=== PATIENT | female | born 1990 | race Native Hawaiian/Other Pacific Islander ===

== ENCOUNTER 2017-11-06 08:31 | Emergency (ER) | payer MEDICAID, OTHER ==
[~2017-11-06] VITALS: Ht 165.1 cm; Wt 99.8 kg
[2017-11-06] MEDS ORDERED: BUSP15TA60 (08:57)
[2017-11-06] MEDS ORDERED: FLUO20CA25 (08:57)
[2017-11-06] MEDS ORDERED: NS IV 1000 ML 1,000 ML IV SCH (10:00)
[2017-11-06] MEDS ORDERED: diphenhydrAMINE 50 MG/ML INJ (BENADRYL) IVP ONE (10:00)
[2017-11-06] MEDS ORDERED: KETOROLAC 30 MG/ML VIAL IVP ONE (10:00)
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
[2017-11-06] MEDS ORDERED: fentaNYL INJECTION 100 MCG/2 ML AMP IVP ONE (11:00)
[2017-11-06 11:26] VITALS: BP 140/49
--- OUTSIDE RECORDS SUMMARY | 2017-11-07 09:14 | XMS REPORT ---
Author [facility] Medical Staff Organization [facility] Address [address] [place], [place] [address] Phone [phone] Summary purpose TRANSITION OF CARE AUTO GENERATION Chief Complaint and Reason for Visit No authorized Reason for Visit (Admitting Diagnosis) is available for this visit. Problem list No authorized problems tracked for continuity of care are available for this visit. Encounters No authorized problems tracked for encounter diagnoses are available for this visit. Medications No medications recorded for this patient visit Allergies, adverse reactions, alerts Allergen Category Ingredient Status Reaction Severity Onset No Known Drug Allergies No known drug allergies No Known Drug Allergies Confirmed or Verified Immunizations No immunizations recorded for this patient visit Relevant diagnostic tests and/or laboratory data No authorized results are available for this patient visit History of procedures Procedure Code Code Type Description Date Performed Performing Physician [id number] CPT-4 X-RAY EXAM OF NECK SPINE 03-15-2016 CARA ELISE Functional status No functional or cognitive status observations are available for this visit. Vital signs No authorized vital signs are available for this visit. Social history No Social History or smoking status observations were recorded for this visit. ( Unknown if ever smoked.) Treatment Plan No treatment plan text is available for this visit. Hospital discharge instructions No discharge instruction text is available for this visit.
--- OUTSIDE RECORDS SUMMARY | 2017-11-07 09:14 | XMS REPORT ---
Author Author [facility] Medical Staff Organization [facility] Address [address] [place], [place] [address] Phone [phone] Summary purpose TRANSITION OF CARE AUTO GENERATION [...] for this patient visit History of procedures No procedures recorded for this patient visit. Functional status No functional or cognitive status [...]
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
--- OUTSIDE RECORDS SUMMARY | 2017-11-07 09:15 | XMS REPORT | Clinical Summary ---
Author Author Admin, MARCO ANTONIO Gardiner [facility] Address Unknown Phone Unavailable Allergies, Adverse Reactions, Alerts Allergy Name Reaction Description Start Date Severity Status Provider No Known Allergies Antonia Elder Conditions or Problems Problem Name Problem Code Onset Date Status Entry Date Provider Comment Standard Description Annotate FH BREAST CANCER V16.3 Active Jacque Blas MD PhD Family history of malignant neoplasm of breast , NORMAL V22.2 Resolved Jacque Blas MD PhD state, incidental EXCESS GROWTH AFFECT MGMT MOTH ANTPRTM 656.63 Resolved Jacque Blas MD PhD Excessive growth affecting management of mother, antepartum condition or complication UTERINE SIZE DATE DISCREPANCY ANTPRTM COND/COMPL 649.63 Resolved Jacque Blas MD PhD Uterine size date discrepancy, antepartum condition or complication DEPRESSION 648.40 Resolved Jacque Blas MD PhD Mental disorders complicating , childbirth, or the puerperium, unspecified as to episode of care or not applicable CONSTIPATION 564.00 Resolved Jacque Blas MD PhD Constipation, unspecified SUPRAPUBIC PAIN 789.09 Resolved Jacque Blas MD PhD Abdominal pain, other specified site; multiple sites SEXUALLY TRANSMITTED DISEASE, EXPOSURE TO V01.6 Resolved Jacque Blas MD PhD Contact with or exposure to venereal diseases IRREGULAR MENSES 626.4 Resolved Jacque Blas MD PhD Irregular menstrual cycle , NORMAL, MULTIGRAVIDA V22.1 Resolved Jacque Blas MD PhD Supervision of other normal OTHER SPECIFED COMPLICATION ANTEPARTUM 646.83 Resolved Jacque Blas MD PhD Other specified complications of , antepartum condition or complication BACTERIAL VAGINITIS 616.10 Resolved Jacque Blas MD PhD Vaginitis and vulvovaginitis, unspecified DECR MOVMNTS MGMT MOTH ANTPRTM COND/COMP 655.73 Resolved Jacque Blas MD PhD Decreased movements affecting management of mother, antepartum condition or complication HEARTBURN 787.1 Resolved Jacque Blas MD PhD Heartburn WARTS, VIRAL, UNSPECIFIED 078.10 Resolved Jacque Blas MD PhD Viral warts, unspecified EXAMINATION V24.2 Resolved Jacque Blas MD PhD Routine follow-up CONTRACEPTIVE MANAGEMENT V25.09 Resolved Jacque Blas MD PhD Encounter for other general counseling and advice on contraceptive management Low back pain 724.2 Active Jacque Blas MD PhD Lumbago Neck pain 723.1 Active Jacque Blas MD PhD Cervicalgia Depression/anxiety 300.4 Active Jacque Blas MD PhD Dysthymic disorder Routine gynecological examination V72.31 Active Jacque Blas MD PhD Routine gynecological examination Neck pain 723.1 Inactive Jacque Blas MD PhD Cervicalgia Back pain, lumbar 724.2 Inactive Jacque Blas MD PhD Lumbago Mood swings 296.99 Resolved Jacque Blas MD PhD Other specified episodic mood disorder Aftercare, long-term use, medications NEC V58.69 Resolved 04/07 Jacque Blas MD PhD Long-term (current) use of other medications Vaginitis 616.10 Resolved Jacque Blas MD PhD Vaginitis and vulvovaginitis, unspecified IUD surveillance V25.42 Active Chloe Wagner MD Encounter for surveillance of intrauterine contraceptive device Vaginal discharge 623.5 Resolved Jacque Blas MD PhD Leukorrhea, not specified as infective Drug abuse, hx of V15.89 Active Chloe Wagner MD Other specified personal history presenting hazards to health Std screening V74.5 Active Chloe Wagner MD Screening examination for venereal disease Vaccine against influenza V04.8 Resolved Jacque Blas MD PhD Need for prophylactic vaccination and inoculation against other viral diseases UTI 599.0 Resolved Jacque Blas MD PhD Urinary tract infection, site not specified Back pain, lumbar 724.2 Inactive Jacque Blas MD PhD Lumbago Dysuria 788.1 Active Jacque Blas MD PhD Dysuria Obesity 278.00 Active Jacque Blas MD PhD Obesity, unspecified Candidiasis, vaginal 112.1 Active Jacque Blas MD PhD Candidiasis of vulva and vagina Bacterial vaginosis 616.10 Active Jacque Blas MD PhD Vaginitis and vulvovaginitis, unspecified EXCESS GROWTH AFFECT MGMT MOTH ANTPRTM ICD-656.63 Inactive Jacque Blas MD PhD UTERINE SIZE DATE DISCREPANCY ANTPRTM COND/COMPL ICD-649.63 05/05 Inactive Jacque Blas MD PhD DEPRESSION ICD-648.40 Inactive Jacque Blas MD PhD SUPRAPUBIC PAIN ICD-789.09 Inactive Jacque Blas MD PhD CONSTIPATION ICD-564.00 Inactive Jacque Blas MD PhD , NORMAL ICD-V22.2 Inactive Jacque Blas MD PhD SEXUALLY TRANSMITTED DISEASE, EXPOSURE TO ICD-V01.6 Inactive Jacque Blas MD PhD IRREGULAR MENSES ICD-626.4 Inactive Jacque Blas MD PhD BACTERIAL VAGINITIS ICD-616.10 Inactive Jacque Blas MD PhD DECR MOVMNTS MGMT MOTH ANTPRTM COND/COMP ICD-655.73 Inactive Jacque Blas MD PhD HEARTBURN ICD-787.1 Inactive Jacque Blas MD PhD WARTS, VIRAL, UNSPECIFIED ICD-078.10 Inactive Jacque Blas MD PhD EXAMINATION ICD-V24.2 Inactive Jacque Blas MD PhD CONTRACEPTIVE MANAGEMENT ICD-V25.09 Inactive Jacque Blas MD PhD Neck pain ICD-723.1 Inactive Jacque Blas MD PhD Back pain, lumbar ICD-724.2 Inactive Jacque Blas MD PhD Mood swings ICD-296.99 Inactive Jacque Blas MD PhD Aftercare, long-term use, medications NEC ICD-V58.69 Inactive Jacque Blas MD PhD Vaginitis ICD-616.10 Inactive Jacque Blas MD PhD Vaginal discharge ICD-623.5 Inactive Jacque Blas MD PhD Vaccine against influenza ICD-V04.8 Inactive Jacque Blas MD PhD UTI ICD-599.0 Inactive Jacque Blas MD PhD Back pain, lumbar ICD-724.2 Inactive Jacque Blas MD PhD , NORMAL, MULTIGRAVIDA ICD-V22.1 Inactive Jacque Blas MD PhD OTHER SPECIFED COMPLICATION ANTEPARTUM ICD-646.83 Inactive Jacque Blas MD PhD Medication List Medication Instructions Start Date Stop Date Generic Name NDC Status Provider Patient Instruction FLAGYL 500 MG TABS 1 pill by mouth twice daily METRONIDAZOLE 92686868340 Active Jacque Blas MD PhD Active DIFLUCAN 150 MG TABS 1 pill every other day x 2 doses FLUCONAZOLE 97737798256 No Longer Active Jacque Blas MD PhD Active PHENTERMINE HCL 37.5 MG TABS 1/2 qAM, can increase to 1 qAM - take 30 min before or 2 hrs after breakfast, for weight loss PHENTERMINE HCL 11699436088 Active Jacque Blas MD PhD Active HYDROXYZINE HCL 25 MG TABS 1/2 - 1 pill by mouth four times daily , if neeed for nerves HYDROXYZINE HCL 88564853386 Active Jacque Blas MD PhD Active METHOCARBAMOL 500 MG ORAL TABS 1 pill by mouth up to four times daily if needed for muscle spasm/pain METHOCARBAMOL 64385988429 No Longer Active Jacque Blas MD PhD Active SEROQUEL 200 MG ORAL TABS take 1 tab daily QUETIAPINE FUMARATE 61595935358 No Longer Active Jacque Blas MD PhD Active NICODERM CQ 14 MG/24HR PT24 1 patch daily x 2 weeks, then decrease to 7's - for smoking cessation NICOTINE 74816773433 No Longer Active Jacque Blas MD PhD Active NICODERM CQ 7 MG/24HR PT24 1 patch daily x 2 weeks - for smoking cessation NICOTINE 30049623812 No Longer Active Jacque Blas MD PhD Active CIPRO 500 MG TAB 1 tablet by mouth twice daily CIPROFLOXACIN HCL 01128407959 No Longer Active Jacque Blas MD PhD Active CYCLOBENZAPRINE HCL 10 MG TABS 1/2 to 1 tablet by mouth q hs, prn CYCLOBENZAPRINE HCL 73091426749 Active Eva Alejo APRN Active MEDROL (DIAN) 4 MG TABS 6 pills x 1 day, then 5 pills x 1 day then 4 pills x 1 day, then 3 pills x 1 day, then 2 pills x 1 day, then 1 pill x 1 day, then stop METHYLPREDNISOLONE 37743521571 No Longer Active Rajllina Sapna CONNER Active CYCLOBENZAPRINE HCL 10 MG TABS 1/2 - 1 tab by mouth three times daily if needed for spasms/pain CYCLOBENZAPRINE HCL 90124550959 No Longer Active Rajllamanda Alejo APRN Active FLAGYL 500 MG ORAL TABS four tabs PO x 1 METRONIDAZOLE 74240673475 No Longer Active Jacque Blas MD PhD Active BACTRIM DS 800-160 MG ORAL TABS one tab PO BID x 3 days SULFAMETHOXAZOLE-TRIMETHOPRIM 79438254589 No Longer Active Chloe Wagner MD Active LAMICTAL 25 MG TABS 1 pill by mouth daily x 2 weeks, then 2 pills daily 07/26 LAMOTRIGINE 14787765629 No Longer Active Jacque Blas MD PhD Active LATUDA 40 MG TABS Take one by mouth daily LURASIDONE HCL 29066892242 Active Jacque Blas MD PhD Active HYDROCODONE-ACETAMINOPHEN 7.5-325 MG TABS 1 four times a day as needed for pain HYDROCODONE-ACETAMINOPHEN 52548311253 No Longer Active Jacque Blas MD PhD Active ROBAXIN 500 MG TAB 1-2 pills up to four times daily if needed for muscle spasms METHOCARBAMOL 25137937444 No Longer Active Jacque Blas MD PhD Active CITALOPRAM HYDROBROMIDE 10 MG TABS 1 pill daily, for depression/anxiety 02/09 CITALOPRAM HYDROBROMIDE 22801720060 No Longer Active Jacque Blas MD PhD Active HYDROCODONE-ACETAMINOPHEN 5-325 MG TABS 1 pill three times daily as needed for pain HYDROCODONE-ACETAMINOPHEN 99801095257 No Longer Active Jacque Blas MD PhD Active IBUPROFEN 600 MG TAB 1 pill four times daily, with food IBUPROFEN 28664509379 Active Jacque Blas MD PhD Active TRAMADOL HCL 50 MG TABS 1-2 tablets every 6 hours as needed for pain TRAMADOL HCL 86549027131 No Longer Active Jacque Blas MD PhD Active TYLENOL EXTRA STRENGTH 500 MG TABS 2 @ HS ACETAMINOPHEN 75083994580 No Longer Active Jacque Blas MD PhD Active SERTRALINE HCL 50 MG TABS 1 daily for depression SERTRALINE HCL 30439969333 No Longer Active Jacque Blas MD PhD Active BACTRIM DS 800-160 MG TAB 1 tab by mouth twice daily TRIMETHOPRIM-SULFAMETHOXAZOLE 90150653326 No Longer Active Eva Alejo APRN Active FLINSTONES GUMMIES OMEGA-3 DHA CHEW Take one by mouth daily PEDIATRIC MULTIPLE VIT-C-FA 54323199763 No Longer Active Jacque Blas MD PhD Active RANITIDINE HCL 150 MG CAPS 1 twice a day RANITIDINE HCL 25386561242 No Longer Active Jacque Blas MD PhD Active PNV-OMEGA 28-0.6-0.4-340 MG CAPS 1 pill by mouth daily PRENAT W/O [id number] 66549100320 No Longer Active Jacque Blas MD PhD Active BACTRIM DS 800-160 MG TAB 1 tab by mouth twice daily TRIMETHOPRIM-SULFAMETHOXAZOLE 43335088463 No Longer Active Jacque Blas MD PhD Active METRONIDAZOLE 250 MG TABS 1 TID METRONIDAZOLE 20576373193 No Longer Active Jacque Blas MD PhD Active TRI-SPRINTEC 0.18/0.215/0.25 MG-35 MCG TABS 1 PO q Day NORGESTIM-ETH ESTRAD TRIPHASIC 96257236449 No Longer Active Jacque Blas MD PhD Active ALPRAZOLAM 0.25 MG TABS 1/2 tab to 1 tab PO TID PRN ALPRAZOLAM 47681622251 No Longer Active Jacque Blas MD PhD Active FLUOXETINE HCL 10 MG CAPS 2 PO q AM FLUOXETINE HCL 12762270512 No Longer Active Jacque Blas MD PhD Active ALPRAZOLAM 0.25 MG TABS 1/2 tab to 1 tab PO TID PRN ALPRAZOLAM 0.25 MG TABS 570458 ALPRAZOLAM Inactive TRI-SPRINTEC 0.18/0.215/0.25 MG-35 MCG TABS 1 PO q Day TRI-SPRINTEC 0.18/0.215/0.25 MG-35 MCG TABS 611713 NORGESTIM-ETH ESTRAD TRIPHASIC Inactive PNV-OMEGA 28-0.6-0.4-340 MG CAPS 1 pill by mouth daily PNV-OMEGA 28-0.6-0.4-340 MG CAPS PRENAT W/O [id number]-OMEGA Inactive RANITIDINE HCL 150 MG CAPS 1 twice a day RANITIDINE HCL 150 MG CAPS 935864 RANITIDINE HCL Inactive FLINSTONES GUMMIES OMEGA-3 DHA CHEW Take one by mouth daily FLINSTONES GUMMIES OMEGA-3 DHA CHEW PEDIATRIC MULTIPLE VIT-C-FA Inactive SERTRALINE HCL 50 MG TABS 1 daily for depression SERTRALINE HCL 50 MG TABS 957892 SERTRALINE HCL Inactive TYLENOL EXTRA STRENGTH 500 MG TABS 2 @ HS TYLENOL EXTRA STRENGTH 500 MG TABS 583056 ACETAMINOPHEN Inactive TRAMADOL HCL 50 MG TABS 1-2 tablets every 6 hours as needed for pain TRAMADOL HCL 50 MG TABS 167551 TRAMADOL HCL Inactive HYDROCODONE-ACETAMINOPHEN 5-325 MG TABS 1 pill three times daily as needed for pain HYDROCODONE-ACETAMINOPHEN 5-325 MG TABS 606707 HYDROCODONE-ACETAMINOPHEN Inactive CITALOPRAM HYDROBROMIDE 10 MG TABS 1 pill daily, for depression/anxiety 02/09 CITALOPRAM HYDROBROMIDE 10 MG TABS 284643 CITALOPRAM HYDROBROMIDE Inactive ROBAXIN 500 MG TAB 1-2 pills up to four times daily if needed for muscle spasms ROBAXIN 500 MG TAB 611791 METHOCARBAMOL Inactive HYDROCODONE-ACETAMINOPHEN 7.5-325 MG TABS 1 four times a day as needed for pain HYDROCODONE-ACETAMINOPHEN 7.5-325 MG TABS 406389 HYDROCODONE-ACETAMINOPHEN Inactive LAMICTAL 25 MG TABS 1 pill by mouth daily x 2 weeks, then 2 pills daily 07/26 LAMICTAL 25 MG TABS 346220 LAMOTRIGINE Inactive FLAGYL 500 MG ORAL TABS four tabs PO x 1 FLAGYL 500 MG ORAL TABS 393766 METRONIDAZOLE Inactive CYCLOBENZAPRINE HCL 10 MG TABS 1/2 - 1 tab by mouth three times daily if needed for spasms/pain CYCLOBENZAPRINE HCL 10 MG TABS 593607 CYCLOBENZAPRINE HCL Inactive CIPRO 500 MG TAB 1 tablet by mouth twice daily CIPRO 500 MG TAB 690896 CIPROFLOXACIN HCL Inactive NICODERM CQ 7 MG/24HR PT24 1 patch daily x 2 weeks - for smoking cessation NICODERM CQ 7 MG/24HR PT24 19800102 NICOTINE Inactive NICODERM CQ 14 MG/24HR PT24 1 patch daily x 2 weeks, then decrease to 7's - for smoking cessation NICODERM CQ 14 MG/24HR PT24 19791212 NICOTINE Inactive SEROQUEL 200 MG ORAL TABS take 1 tab daily SEROQUEL 200 MG ORAL TABS 873996 QUETIAPINE FUMARATE Inactive METHOCARBAMOL 500 MG ORAL TABS 1 pill by mouth up to four times daily if needed for muscle spasm/pain METHOCARBAMOL 500 MG ORAL TABS 507487 METHOCARBAMOL Inactive FLUOXETINE HCL 10 MG CAPS 2 PO q AM FLUOXETINE HCL 10 MG CAPS 449885 FLUOXETINE HCL Inactive METRONIDAZOLE 250 MG TABS 1 TID METRONIDAZOLE 250 MG TABS 902369 METRONIDAZOLE Inactive BACTRIM DS 800-160 MG TAB 1 tab by mouth twice daily BACTRIM DS 800-160 MG TAB TRIMETHOPRIM-SULFAMETHOXAZOLE Inactive BACTRIM DS 800-160 MG TAB 1 tab by mouth twice daily BACTRIM DS 800-160 MG TAB TRIMETHOPRIM-SULFAMETHOXAZOLE Inactive BACTRIM DS 800-160 MG ORAL TABS one tab PO BID x 3 days BACTRIM DS 800-160 MG ORAL TABS SULFAMETHOXAZOLE-TRIMETHOPRIM Inactive MEDROL (DIAN) 4 MG TABS 6 pills x 1 day, then 5 pills x 1 day then 4 pills x 1 day, then 3 pills x 1 day, then 2 pills x 1 day, then 1 pill x 1 day, then stop MEDROL (DIAN) 4 MG TABS METHYLPREDNISOLONE Inactive DIFLUCAN 150 MG TABS 1 pill every other day x 2 doses DIFLUCAN 150 MG TABS 389960 FLUCONAZOLE Inactive Advance Directives Directive Description Start Date PERMISSION TO SHARE Immunizations Vaccine Administration Date Value Standard Description dT (Diphtheria and Tetanus) booster given given Td(adult) unspecified formulation Adacel (Tetanus, reduced Diphtheria, and acellular Pertussis Immunization) Adacel [[id number]] tetanus toxoid, reduced diphtheria toxoid, and acellular pertussis vaccine, adsorbed hepatitis B vaccine series yes hepatitis B vaccine, unspecified formulation Vital Signs Date Name Value Unit Range Description blood pressure, diastolic - 8462-4 66 mm[Hg] BP sellers blood pressure, systolic - 8480-6 108 mm[Hg] BP sys pulse rate E&M - 8867-4 89 /min Heart rate temperature E&M 98.2 [degF] Body temperature weight E&M - 3141-9 227 [lb_av] Weight Measured blood pressure, diastolic - 8462-4 77 mm[Hg] BP sellers blood pressure, systolic - 8480-6 116 mm[Hg] BP sys pulse rate E&M - 8867-4 88 /min Heart rate temperature E&M 98.6 [degF] Body temperature weight E&M - 3141-9 192 [lb_av] Weight Measured blood pressure, diastolic - 8462-4 83 mm[Hg] BP sellers blood pressure, systolic - 8480-6 117 mm[Hg] BP sys pulse rate E&M - 8867-4 77 /min Heart rate temperature E&M 99 [degF] Body temperature weight E&M - 3141-9 192 [lb_av] Weight Measured blood pressure, diastolic - 8462-4 78 mm[Hg] BP sellers blood pressure, systolic - 8480-6 120 mm[Hg] BP sys pulse rate E&M - 8867-4 85 /min Heart rate temperature E&M 98.6 [degF] Body temperature weight E&M - 3141-9 183 [lb_av] Weight Measured blood pressure, diastolic - 8462-4 68 mm[Hg] BP sellers blood pressure, systolic - 8480-6 112 mm[Hg] BP sys pulse rate E&M - 8867-4 97 /min Heart rate temperature E&M 98.5 [degF] Body temperature weight E&M - 3141-9 184.3 [lb_av] Weight Measured blood pressure, diastolic - 8462-4 61 mm[Hg] BP sellers blood pressure, systolic - 8480-6 107 mm[Hg] BP sys pulse rate E&M - 8867-4 96 /min Heart rate temperature E&M 99.0 [degF] Body temperature weight E&M - 3141-9 158.2 [lb_av] Weight Measured blood pressure, diastolic - 8462-4 68 mm[Hg] BP sellers blood pressure, systolic - 8480-6 109 mm[Hg] BP sys height E&M - 8302-2 65 [in_us] Bdy height pulse rate E&M - 8867-4 96 /min Heart rate temperature E&M 98.3 [degF] Body temperature weight E&M - 3141-9 162 [lb_av] Weight Measured blood pressure, diastolic - 8462-4 85 mm[Hg] BP sellers blood pressure, systolic - 8480-6 127 mm[Hg] BP sys height E&M - 8302-2 65 [in_us] Bdy height pulse rate E&M - 8867-4 95 /min Heart rate temperature E&M 99.1 [degF] Body temperature weight E&M - 3141-9 162 [lb_av] Weight Measured Diagnostic Results Date Name Value Unit Range Description Lab Report: Chlamydia/GC APTIMA/50162 - Lab chlamydia DNA probe NOT DETECTED NOT DETECTED chlamydia DNA probe NOT DETECTED NOT DETECTED chlamydia DNA probe NOT DETECTED NOT DETECTED chlamydia DNA probe NOT DETECTED NOT DETECTED chlamydia DNA probe NOT DETECTED NOT DETECTED Lab Report: Chlamydia/GC APTIMA/16762 - Microbiology Neisseria gonorrhoeae DNA probe NOT DETECTED NOT DETECTED Neisseria gonorrhoeae DNA probe NOT DETECTED NOT DETECTED Neisseria gonorrhoeae DNA probe NOT DETECTED NOT DETECTED Neisseria gonorrhoeae DNA probe NOT DETECTED NOT DETECTED Neisseria gonorrhoeae DNA probe NOT DETECTED NOT DETECTED Lab Report: Chlamydia/GC APTIMA/35973, Drug Abuse Pnl 10-50/40823 - Lab chlamydia DNA probe NOT DETECTED NOT DETECTED Lab Report: Chlamydia/GC APTIMA/08532, Drug Abuse Pnl 10-50/41040 - Microbiology Neisseria gonorrhoeae DNA probe NOT DETECTED NOT DETECTED Lab Report: CKI, Erythrocyte Sed Rate - Chemistry creatine kinase, serum 63 U/L 26-192 Lab Report: HEPATITIS B S AG W/, HIV-1/HIV-2 AB SCREEN W , RPR ... - Chemistry hepatitis B surface antigen NON-REACTIVE NON-REACTIVE Lab Report: HEPATITIS B S AG W/, HIV-1/HIV-2 AB SCREEN W , RPR ... - Serology rapid plasma reagin antibody titer NON-REACTIVE NON-REACTIVE Lab Report: Thyroid Stimulating Hormone (L), Free Thyroxine (L) - Chemistry TSH 1.21 m[iU]/mL 0.36-3.74 thyroxine, serum, free 1.01 ng/dL 0.76-1.46 Lab Report: UADIP W/MICRO, AUTO - Chemistry RBC, urine, dipstick Negative Negative protein, total urine random Negative mg/dL Negative Lab Report: UADIP W/MICRO, AUTO - Urinalysis glucose, urine, semiquantitative Negative Negative ketones, urine, by test strip Negative Negative bilirubin, urine Negative Negative urobilinogen, urine, semiquantitative (dipstick) 0.2 Normal leukocyte esterase, urine, by dipstick 1+ Negative nitrite, urine, semiquantitative Negative Negative urine color Yellow Colorless;Lightyellow;Straw;Yellow appearance, urine SlCloudy Clear specific gravity, urine 1.020 1.000-1.030 pH, urine, semiquantitative 7.5 5.0-8.5 Lab Report: Wet Prep, UADIP W/MICRO, AUTO - Chemistry protein, total urine random Negative mg/dL Negative protein, total urine random 1+ mg/dL Negative RBC, urine, dipstick 1+ Negative RBC, urine, dipstick 1+ Negative Lab Report: Wet Prep, UADIP W/MICRO, AUTO - Urinalysis urobilinogen, urine, semiquantitative (dipstick) 0.2 Normal leukocyte esterase, urine, by dipstick 3+ Negative nitrite, urine, semiquantitative Negative Negative glucose, urine, semiquantitative Negative Negative urine color Yellow Colorless;Lightyellow;Straw;Yellow appearance, urine Cloudy Clear specific gravity, urine 1.010 1.000-1.030 pH, urine, semiquantitative 7.0 5.0-8.5 urobilinogen, urine, semiquantitative (dipstick) 0.2 Normal leukocyte esterase, urine, by dipstick 2+ Negative nitrite, urine, semiquantitative Negative Negative glucose, urine, semiquantitative Negative Negative ketones, urine, by test strip Negative Negative bilirubin, urine Negative Negative urine color Yellow Colorless;Lightyellow;Straw;Yellow appearance, urine Cloudy Clear specific gravity, urine 1.010 1.000-1.030 pH, urine, semiquantitative 7.0 5.0-8.5 ketones, urine, by test strip Negative Negative bilirubin, urine Negative Negative Office Visit: preethi removal - Chemistry human chorionic gonadotropin, urine, qualitative (urine test) Negative Encounters Code Encounter Date Provider Facility CPT-62691 Level 3 Est. Patient 12:37:07 CDT Jacque Blas MD [facility] CPT-22175 Level 3 Est. Patient 20:19:50 CALENDER INSPECTOR Jacque Blas MD [facility] CPT-19487 Level 4 Est. Patient 17:32:49 CALENDER INSPECTOR Jacque Blas MD [facility] CPT-97118 Level 3 Est. Patient 14:38:20 CDT Jacque Blas MD [facility] CPT-55804 Level 4 Est. Patient 20:19:14 CDT Jacque Blas MD [facility] CPT-07837 Level 3 Est. Patient 15:41:32 CDT Jacque Blas MD [facility] CPT-53932 Level 3 Est. Patient 18:02:00 CALENDER INSPECTOR Jacque Blas MD [facility] CPT-83184 Level 3 Est. Patient 21:41:26 CALENDER INSPECTOR Jacque Blas MD [facility] CPT-31391 Level 4 Est. Patient 14:43:47 CALENDER INSPECTOR Jacque Blas MD [facility] CPT-59601 Level 3 Est. Patient 20:16:54 CALENDER INSPECTOR Jacque Blas MD [facility] CPT-90153 Level 3 Est. Patient 13:31:37 CDT Jacque Blas MD [facility] CPT-93409 Level 3 New Patient 18:16:07 CDT Jacque Blas MD [facility] Procedures Code Procedure Name Date Entry Date Standard Description CPT-01783 Fluzone Quadrivalent Intramuscular Suspension 0.5 ML 16: 31:47 CALENDER INSPECTOR CPT-97469 Immunization Single Admin 16:31:47 CALENDER INSPECTOR CPT-57120 Immunization Single Admin 13:26:18 CALENDER INSPECTOR CPT-51186 Fluzone Intramuscular Injectable 13:26:18 CALENDER INSPECTOR CPT-70221 Fluzone Thim Free 36mo and older 12:03:33 CALENDER INSPECTOR CPT-66748 UHCG (floor use only) 11:49:41 CALENDER INSPECTOR CPT-OV Office Visit 11:49:41 CALENDER INSPECTOR CPT-54361 LS spine comp w obliq 15:53:02 CALENDER INSPECTOR CPT-50387 C-Spine Min 4V 15:53:02 CALENDER INSPECTOR CPT-09326 UHCG (floor use only) 14:15:45 CDT CPT-38798 UHCG (floor use only) 14:09:15 CDT CPT-J7302 Mirena IUD 13:30:58 CDT CPT-02156 Insertion of IUD 13:30:58 CDT CPT-OV Office Visit 13:30:58 CDT CPT-63419 Visit 10:48:09 CDT CPT-04151 Visit 15:34:57 CDT CPT-08677 Visit 15:25:55 CDT CPT-96276 Visit 13:58:45 CDT CPT-08588 Sono OB comp > 14 weeks 16:57:22 CDT CPT-LR Lesion Removal 09:33:27 CDT CPT-89454 Visit 12:50:42 CDT CPT-79230 Visit 18:34:25 CDT CPT-000 Give Appropriate Tetanus Booster 09:16:14 CDT CPT-37195 Administration single or combination vaccine inc oral 11 :36:32 CDT CPT-53672 Tdap 11:36:32 CDT CPT-77370 Visit 09:16:14 CDT CPT-95223 Visit 13:35:24 CDT CPT-34531 Sono OB comp > 14 weeks 11:46:07 CDT CPT-83495 Visit 17:08:15 CDT CPT-80279 Sono OB comp <14 weeks 15:47:19 CALENDER INSPECTOR CPT-02860 Visit 13:28:37 CDT CPT-12922 Spec Collection and Handling Fee 12:41:37 CDT CPT-82506 Visit 12:41:07 CDT CPT-98855 Visit 18:48:53 CDT CPT-44186 Visit 16:25:17 CDT CPT-96573 Sono OB comp > 14 weeks 11:38:18 CDT CPT-73426 Visit 13:36:17 CDT CPT-49893 Visit 13:48:22 CDT
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
--- OUTSIDE RECORDS SUMMARY | 2017-11-07 09:16 | XMS REPORT | Clinical Summary ---
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-656.63 Inactive Jacque Blas MD PhD UTERINE SIZE DATE DISCREPANCY ANTPRTM COND/COMPL ICD-649.63 05/05 Inactive Jacque Blas MD PhD DEPRESSION ICD-648.40 Inactive Jacque Blas MD PhD CONSTIPATION ICD-564.00 Inactive Jacque Blas MD PhD SUPRAPUBIC PAIN ICD-789.09 Inactive Jacque Blas MD PhD SEXUALLY TRANSMITTED DISEASE, EXPOSURE TO ICD-V01.6 Inactive Jacque Blas MD PhD IRREGULAR MENSES ICD-626.4 Inactive Jacque Blas MD PhD , NORMAL, MULTIGRAVIDA ICD-V22.1 Inactive Jacque Blas MD PhD OTHER SPECIFED COMPLICATION ANTEPARTUM ICD-646.83 Inactive Jacque Blas MD PhD BACTERIAL VAGINITIS [...] lumbar ICD-724.2 Inactive Jacque Blas MD PhD Medication List Medication Instructions Start Date Stop Date Generic Name NDC Status Provider Patient Instruction FLAGYL 500 MG TABS 1 pill by mouth twice daily METRONIDAZOLE 19632825369 Active Jacque Blas MD PhD Active DIFLUCAN 150 MG TABS 1 pill every other day x 2 doses FLUCONAZOLE 31393538356 Active Jacque Blas MD PhD Active PHENTERMINE HCL 37.5 MG TABS 1/2 qAM, can increase to 1 qAM - take 30 min before or 2 hrs after breakfast, for weight loss PHENTERMINE HCL 03174504419 Active Jacque Blas MD PhD Active HYDROXYZINE HCL 25 MG TABS 1/2 - 1 pill by mouth four times daily , if neeed for nerves HYDROXYZINE HCL 40898928905 Active Jacque Blas MD PhD Active METHOCARBAMOL 500 MG ORAL TABS 1 pill by mouth up to four times daily if needed for muscle spasm/pain METHOCARBAMOL 94807794610 No Longer Active Jacque Blas MD PhD Active SEROQUEL 200 MG ORAL TABS take 1 tab daily QUETIAPINE FUMARATE 36388029786 No Longer Active Jacque Blas MD PhD Active NICODERM CQ 14 MG/24HR PT24 1 patch daily x 2 weeks, then decrease to 7's - for smoking cessation NICOTINE 87588648850 No Longer Active Jacque Blas MD PhD Active NICODERM CQ 7 MG/24HR PT24 1 patch daily x 2 weeks - for smoking cessation NICOTINE 90738407474 No Longer Active Jacque Blas MD PhD Active CIPRO 500 MG TAB 1 tablet by mouth twice daily CIPROFLOXACIN HCL 91658952706 No Longer Active Jacque Blas MD PhD Active CYCLOBENZAPRINE HCL 10 MG TABS 1/2 to 1 tablet by mouth q hs, prn CYCLOBENZAPRINE HCL 90741671879 Active Eva Alejo APRN Active MEDROL (DIAN) 4 MG TABS 6 pills x 1 day, then 5 pills x 1 day then 4 pills x 1 day, then 3 pills x 1 day, then 2 pills x 1 day, then 1 pill x 1 day, then stop METHYLPREDNISOLONE 91646106342 No Longer Active Rajllamanda Alejo APRN Active CYCLOBENZAPRINE HCL 10 MG TABS 1/2 - 1 tab by mouth three times daily if needed for spasms/pain CYCLOBENZAPRINE HCL 03015115156 No Longer Active Eva Alejo APRN Active FLAGYL 500 MG ORAL TABS four tabs PO x 1 METRONIDAZOLE 93272434355 No Longer Active Jacque Blas MD PhD Active BACTRIM DS 800-160 MG ORAL TABS one tab PO BID x 3 days SULFAMETHOXAZOLE-TRIMETHOPRIM 55721495669 No Longer Active Chloe Wagner MD Active LAMICTAL 25 MG TABS 1 pill by mouth daily x 2 weeks, then 2 pills daily 07/26 LAMOTRIGINE 46317844476 No Longer Active Jacque Blas MD PhD Active LATUDA 40 MG TABS Take one by mouth daily LURASIDONE HCL 51202866890 Active Jacque Blas MD PhD Active HYDROCODONE-ACETAMINOPHEN 7.5-325 MG TABS 1 four times a day as needed for pain HYDROCODONE-ACETAMINOPHEN 64321046219 No Longer Active Jacque Blas MD PhD Active ROBAXIN 500 MG TAB 1-2 pills up to four times daily if needed for muscle spasms METHOCARBAMOL 96773614515 No Longer Active Jacque Blas MD PhD Active CITALOPRAM HYDROBROMIDE 10 MG TABS 1 pill daily, for depression/anxiety 02/09 CITALOPRAM HYDROBROMIDE 09091578637 No Longer Active Jacque Blas MD PhD Active HYDROCODONE-ACETAMINOPHEN 5-325 MG TABS 1 pill three times daily as needed for pain HYDROCODONE-ACETAMINOPHEN 56418727658 No Longer Active Jacque Blas MD PhD Active IBUPROFEN 600 MG TAB 1 pill four times daily, with food IBUPROFEN 48892633064 Active Jacque Blas MD PhD Active TRAMADOL HCL 50 MG TABS 1-2 tablets every 6 hours as needed for pain TRAMADOL HCL 06245583415 No Longer Active Jacque Blas MD PhD Active TYLENOL EXTRA STRENGTH 500 MG TABS 2 @ HS ACETAMINOPHEN 01528987537 No Longer Active Jacque Blas MD PhD Active SERTRALINE HCL 50 MG TABS 1 daily for depression SERTRALINE HCL 19852096689 No Longer Active Jacque Blas MD PhD Active BACTRIM DS 800-160 MG TAB 1 tab by mouth twice daily TRIMETHOPRIM-SULFAMETHOXAZOLE 53955242769 No Longer Active Eva Alejo APRN Active FLINSTONES GUMMIES OMEGA-3 DHA CHEW Take one by mouth daily PEDIATRIC MULTIPLE VIT-C-FA 63478483843 No Longer Active Jacque Blas MD PhD Active RANITIDINE HCL 150 MG CAPS 1 twice a day RANITIDINE HCL 06195398624 No Longer Active Jacque Blas MD PhD Active PNV-OMEGA 28-0.6-0.4-340 MG CAPS 1 pill by mouth daily PRENAT W/O W-[id number]-ZLZFP-FA-OMEGA 60318146497 No Longer Active Jacque Blas MD PhD Active BACTRIM DS 800-160 MG TAB 1 tab by mouth twice daily TRIMETHOPRIM-SULFAMETHOXAZOLE 42447426313 No Longer Active Jacque Blas MD PhD Active METRONIDAZOLE 250 MG TABS 1 TID METRONIDAZOLE 21071631586 No Longer Active Jacque Blas MD PhD Active TRI-SPRINTEC 0.18/0.215/0.25 MG-35 MCG TABS 1 PO q Day NORGESTIM-ETH ESTRAD TRIPHASIC 63013655889 No Longer Active Jacque Blas MD PhD Active ALPRAZOLAM 0.25 MG TABS 1/2 tab to 1 tab PO TID PRN ALPRAZOLAM 29501199172 No Longer Active Jacque Blas MD PhD Active FLUOXETINE HCL 10 MG CAPS 2 PO q AM FLUOXETINE HCL 03025430177 No Longer Active Jacque Blas MD PhD Active ALPRAZOLAM 0.25 MG TABS 1/2 tab to 1 tab PO TID PRN ALPRAZOLAM 0.25 MG TABS 986514 ALPRAZOLAM Inactive TRI-SPRINTEC 0.18/0.215/0.25 MG-35 MCG TABS 1 PO q Day TRI-SPRINTEC 0.18/0.215/0.25 MG-35 MCG TABS 690980 NORGESTIM-ETH ESTRAD TRIPHASIC Inactive PNV-OMEGA 28-0.6-0.4-340 MG CAPS 1 pill by mouth daily PNV-OMEGA 28-0.6-0.4-340 MG CAPS PRENAT W/O V-[id number]-OMEGA Inactive RANITIDINE HCL 150 MG CAPS 1 twice a day RANITIDINE HCL 150 MG CAPS 962705 RANITIDINE HCL Inactive FLINSTONES GUMMIES OMEGA-3 DHA CHEW Take one by mouth daily FLINSTONES GUMMIES OMEGA-3 DHA CHEW PEDIATRIC MULTIPLE VIT-C-FA Inactive SERTRALINE HCL 50 MG TABS 1 daily for depression SERTRALINE HCL 50 MG TABS 765585 SERTRALINE HCL Inactive TYLENOL EXTRA STRENGTH 500 MG TABS 2 @ HS TYLENOL EXTRA STRENGTH 500 MG TABS 536938 ACETAMINOPHEN Inactive TRAMADOL HCL 50 MG TABS 1-2 tablets every 6 hours as needed for pain TRAMADOL HCL 50 MG TABS 995672 TRAMADOL HCL Inactive HYDROCODONE-ACETAMINOPHEN 5-325 MG TABS 1 pill three times daily as needed for pain HYDROCODONE-ACETAMINOPHEN 5-325 MG TABS 705205 HYDROCODONE-ACETAMINOPHEN Inactive CITALOPRAM HYDROBROMIDE 10 MG TABS 1 pill daily, for depression/anxiety 02/09 CITALOPRAM HYDROBROMIDE 10 MG TABS 624683 CITALOPRAM HYDROBROMIDE Inactive ROBAXIN 500 MG TAB 1-2 pills up to four times daily if needed for muscle spasms ROBAXIN 500 MG TAB 416475 METHOCARBAMOL Inactive HYDROCODONE-ACETAMINOPHEN 7.5-325 MG TABS 1 four times a day as needed for pain HYDROCODONE-ACETAMINOPHEN 7.5-325 MG TABS 520587 HYDROCODONE-ACETAMINOPHEN Inactive LAMICTAL 25 MG TABS 1 pill by mouth daily x 2 weeks, then 2 pills daily 07/26 LAMICTAL 25 MG TABS 812917 LAMOTRIGINE Inactive FLAGYL 500 MG ORAL TABS four tabs PO x 1 FLAGYL 500 MG ORAL TABS 673808 METRONIDAZOLE Inactive CYCLOBENZAPRINE HCL 10 MG TABS 1/2 - 1 tab by mouth three times daily if needed for spasms/pain CYCLOBENZAPRINE HCL 10 MG TABS 930386 CYCLOBENZAPRINE HCL Inactive CIPRO 500 MG TAB 1 tablet by mouth twice daily CIPRO 500 MG TAB 974217 CIPROFLOXACIN HCL Inactive NICODERM CQ 7 MG/24HR [...] tab daily SEROQUEL 200 MG ORAL TABS 490509 QUETIAPINE FUMARATE Inactive METHOCARBAMOL 500 MG ORAL TABS 1 pill by mouth up to four times daily if needed for muscle spasm/pain METHOCARBAMOL 500 MG ORAL TABS 720208 METHOCARBAMOL Inactive FLUOXETINE HCL 10 MG CAPS 2 PO q AM FLUOXETINE HCL 10 MG CAPS 617552 FLUOXETINE HCL Inactive METRONIDAZOLE 250 MG TABS 1 TID METRONIDAZOLE 250 MG TABS 866293 METRONIDAZOLE Inactive BACTRIM DS 800-160 MG TAB [...] MEDROL (DIAN) 4 MG TABS METHYLPREDNISOLONE Inactive Advance Directives Directive Description Start Date PERMISSION TO SHARE Immunizations Vaccine Administration Date Value Standard Description dT (Diphtheria and Tetanus) booster given given Td(adult) unspecified formulation Adacel (Tetanus, reduced Diphtheria, and acellular Pertussis Immunization) Adacel [[id number]] tetanus toxoid, reduced diphtheria toxoid, and acellular [...] Value Unit Range Description Lab Report: Chlamydia/GC APTIMA/98580 - Lab chlamydia DNA probe NOT DETECTED NOT DETECTED chlamydia DNA probe NOT DETECTED NOT DETECTED chlamydia DNA probe NOT DETECTED NOT DETECTED chlamydia DNA probe NOT DETECTED NOT DETECTED Lab Report: Chlamydia/GC APTIMA/10627 - Microbiology Neisseria gonorrhoeae DNA probe NOT DETECTED NOT DETECTED Neisseria gonorrhoeae DNA probe NOT DETECTED NOT DETECTED Neisseria gonorrhoeae DNA probe NOT DETECTED NOT DETECTED Neisseria gonorrhoeae DNA probe NOT DETECTED NOT DETECTED Lab Report: Chlamydia/GC APTIMA/20017, Drug Abuse Pnl 10-50/40411 - Lab chlamydia DNA probe NOT DETECTED NOT DETECTED Lab Report: Chlamydia/GC APTIMA/16931, Drug Abuse Pnl 10-50/33738 - Microbiology Neisseria gonorrhoeae DNA probe NOT [...] Lab Report: UADIP W/MICRO, AUTO - Chemistry protein, total urine random Negative mg/dL Negative RBC, urine, dipstick Negative Negative Lab Report: UADIP W/MICRO, AUTO - Urinalysis urobilinogen, urine, semiquantitative (dipstick) 0.2 Normal leukocyte esterase, urine, by dipstick 1+ Negative nitrite, urine, semiquantitative Negative Negative glucose, urine, semiquantitative Negative Negative ketones, urine, by test strip Negative Negative bilirubin, urine Negative Negative urine color Yellow Colorless;Lightyellow;Straw;Yellow appearance, urine SlCloudy Clear specific gravity, urine 1.020 1.000-1.030 pH, urine, semiquantitative 7.5 5.0-8.5 Lab Report: Wet Prep, UADIP W/MICRO, AUTO - Chemistry protein, total urine random Negative mg/dL Negative RBC, urine, dipstick 1+ Negative protein, total urine random 1+ mg/dL Negative RBC, urine, dipstick 1+ Negative Lab [...] 1.010 1.000-1.030 pH, urine, semiquantitative 7.0 5.0-8.5 Office Visit: [facility] removal - Chemistry human chorionic gonadotropin, urine, qualitative (urine test) Negative Encounters Code Encounter Date Provider Facility CPT-44976 Level 3 Est. Patient 12:37:07 CDT Jacque Blas MD [facility] CPT-45282 Level 3 Est. Patient 20:19:50 [employer]BER Jacque Blas MD [facility] CPT-99661 Level 4 Est. Patient 17:32:49 [employer]BER Jacque Blas MD [facility] CPT-95527 Level 3 Est. Patient 14:38:20 CDT Jacque Blas MD [facility] CPT-29249 Level 4 Est. Patient 20:19:14 CDT Jacque Blas MD [facility] CPT-26054 Level 3 Est. Patient 15:41:32 CDT Jacque Blas MD [facility] CPT-31509 Level 3 Est. Patient 18:02:00 Y[employer]BER Jacque Blas MD [facility] CPT-31420 Level 3 Est. Patient 21:41:26 Y[employer] COMBER Jacque Blas MD [facility] CPT-32379 Level 4 Est. Patient 14:43:47 Y[employer] COMBER Jacque Blas MD [facility] CPT-88421 Level 3 Est. Patient 20:16:54 Y[employer] COMBER Jacque Blas MD [facility] CPT-80955 Level 3 Est. Patient 13:31:37 CDT Jacque Blas MD [facility] CPT-89236 Level 3 New Patient 18:16:07 CDT Jacque Blas MD [facility] Procedures Code Procedure Name Date Entry Date Standard Description CPT-30421 Fluzone Quadrivalent Intramuscular Suspension 0.5 ML 16: 31:47 YARN COMBER CPT-82253 Immunization Single Admin 16:31:47 Y[employer] COMBER CPT-11437 Immunization Single Admin 13:26:18 YARN COMBER CPT-18438 Fluzone Intramuscular Injectable 13:26:18 YARN COMBER CPT-13755 Fluzone Thim Free 36mo and older 12:03:33 YARN COMBER CPT-94634 UHCG (floor use only) 11:49:41 YARN COMBER CPT-OV Office Visit 11:49:41 YARN COMBER CPT-69120 LS spine comp w obliq 15:53:02 YARN COMBER CPT-82908 C-Spine Min 4V 15:53:02 YARN COMBER CPT-14136 UHCG (floor use only) 14:15:45 CDT CPT-35044 UHCG (floor use only) 14:09:15 CDT CPT-J7302 Mirena IUD 13:30:58 CDT CPT-91787 Insertion of IUD 13:30:58 CDT CPT-OV Office Visit 13:30:58 CDT CPT-47440 Visit 10:48:09 CDT CPT-47040 Visit 15:34:57 CDT CPT-58870 Visit 15:25:55 CDT CPT-01882 Visit 13:58:45 CDT CPT-06627 Sono OB comp > 14 weeks 16:57:22 CDT CPT-LR Lesion Removal 09:33:27 CDT CPT-44409 Visit 12:50:42 CDT CPT-84800 Visit 18:34:25 CDT CPT-000 Give Appropriate Tetanus Booster 09:16:14 CDT CPT-00260 Administration single or combination vaccine inc oral 11 :36:32 CDT CPT-20056 Tdap 11:36:32 CDT CPT-63534 Visit 09:16:14 CDT CPT-54099 Visit 13:35:24 CDT CPT-67777 Sono OB comp > 14 weeks 11:46:07 CDT CPT-54102 Visit 17:08:15 CDT CPT-35105 Sono OB comp <14 weeks 15:47:19 YARN COMBER CPT-23258 Visit 13:28:37 CDT CPT-13281 Spec Collection and Handling Fee 12:41:37 CDT CPT-03682 Visit 12:41:07 CDT CPT-94793 Visit 18:48:53 CDT CPT-02139 Visit 16:25:17 CDT CPT-42850 Sono OB comp > 14 weeks 11:38:18 CDT CPT-16166 Visit 13:36:17 CDT CPT-39279 Visit 13:48:22 CDT
--- OUTSIDE RECORDS SUMMARY | 2017-11-07 09:17 | XMS REPORT | Clinical Summary ---
Author Author Admin, MARCO ANTONIO Gardiner [facility] Address Unknown Phone Unavailable Allergies, Adverse Reactions, [...] condition or complication DEPRESSION 648.40 Resolved Jacque Bals MD PhD Mental disorders complicating , childbirth, [...] MD PhD BACTERIAL VAGINITIS ICD-616.10 Inactive Jacque Bals MD PhD DECR MOVMNTS MGMT MOTH ANTPRTM [...] 1 pill by mouth twice daily METRONIDAZOLE 35505227375 Active Jacque Blas MD PhD Active DIFLUCAN 150 MG TABS 1 pill every other day x 2 doses FLUCONAZOLE 27222185453 Active Jacque Blas MD PhD Active PHENTERMINE HCL 37.5 MG TABS 1/2 qAM, can increase to 1 qAM - take 30 min before or 2 hrs after breakfast, for weight loss PHENTERMINE HCL 45160882196 Active Jacque Blas MD PhD Active HYDROXYZINE HCL 25 MG TABS 1/2 - 1 pill by mouth four times daily , if neeed for nerves HYDROXYZINE HCL 53825692697 Active Jacque Blas MD PhD Active METHOCARBAMOL 500 MG ORAL TABS 1 pill by mouth up to four times daily if needed for muscle spasm/pain METHOCARBAMOL 07056003994 No Longer Active Jacque Blas MD PhD Active SEROQUEL 200 MG ORAL TABS take 1 tab daily QUETIAPINE FUMARATE 77517365945 No Longer Active Jacque Blas MD PhD Active NICODERM CQ 14 MG/24HR PT24 1 patch daily x 2 weeks, then decrease to 7's - for smoking cessation NICOTINE 66113896801 No Longer Active Jacque Blas MD PhD Active NICODERM CQ 7 MG/24HR PT24 1 patch daily x 2 weeks - for smoking cessation NICOTINE 87611712717 No Longer Active Jacque Blas MD PhD Active CIPRO 500 MG TAB 1 tablet by mouth twice daily CIPROFLOXACIN HCL 76764470380 No Longer Active Jacque Blas MD PhD Active CYCLOBENZAPRINE HCL 10 MG TABS 1/2 to 1 tablet by mouth q hs, prn CYCLOBENZAPRINE HCL 55913248995 Active Eva Alejo APRN Active MEDROL (DIAN) 4 MG TABS 6 pills x 1 day, then 5 pills x 1 day then 4 pills x 1 day, then 3 pills x 1 day, then 2 pills x 1 day, then 1 pill x 1 day, then stop METHYLPREDNISOLONE 50741289549 No Longer Active Rajllamanda Alejo APRN Active CYCLOBENZAPRINE HCL 10 MG TABS 1/2 - 1 tab by mouth three times daily if needed for spasms/pain CYCLOBENZAPRINE HCL 45185072760 No Longer Active Eva Alejo APRN Active FLAGYL 500 MG ORAL TABS four tabs PO x 1 METRONIDAZOLE 39059334154 No Longer Active Jacque Blas MD PhD Active BACTRIM DS 800-160 MG ORAL TABS one tab PO BID x 3 days SULFAMETHOXAZOLE-TRIMETHOPRIM 18553166452 No Longer Active Chloe Wagner MD Active LAMICTAL 25 MG TABS 1 pill by mouth daily x 2 weeks, then 2 pills daily 07/26 LAMOTRIGINE 37049414137 No Longer Active Jacque Blas MD PhD Active LATUDA 40 MG TABS Take one by mouth daily LURASIDONE HCL 85422947149 Active Jacque Blas MD PhD Active HYDROCODONE-ACETAMINOPHEN 7.5-325 MG TABS 1 four times a day as needed for pain HYDROCODONE-ACETAMINOPHEN 18945434197 No Longer Active Jacque Blas MD PhD Active ROBAXIN 500 MG TAB 1-2 pills up to four times daily if needed for muscle spasms METHOCARBAMOL 17683457937 No Longer Active Jacque Blas MD PhD Active CITALOPRAM HYDROBROMIDE 10 MG TABS 1 pill daily, for depression/anxiety 02/09 CITALOPRAM HYDROBROMIDE 35239486422 No Longer Active Jacque Blas MD PhD Active HYDROCODONE-ACETAMINOPHEN 5-325 MG TABS 1 pill three times daily as needed for pain HYDROCODONE-ACETAMINOPHEN 48558773962 No Longer Active Jacque Blas MD PhD Active IBUPROFEN 600 MG TAB 1 pill four times daily, with food IBUPROFEN 10229243864 Active Jacque Blas MD PhD Active TRAMADOL HCL 50 MG TABS 1-2 tablets every 6 hours as needed for pain TRAMADOL HCL 03954282660 No Longer Active Jacque Blas MD PhD Active TYLENOL EXTRA STRENGTH 500 MG TABS 2 @ HS ACETAMINOPHEN 95245536104 No Longer Active Jacque Blas MD PhD Active SERTRALINE HCL 50 MG TABS 1 daily for depression SERTRALINE HCL 27712922676 No Longer Active Jacque Blas MD PhD Active BACTRIM DS 800-160 MG TAB 1 tab by mouth twice daily TRIMETHOPRIM-SULFAMETHOXAZOLE 20004555510 No Longer Active Eva Alejo APRN Active FLINSTONES GUMMIES OMEGA-3 DHA CHEW Take one by mouth daily PEDIATRIC MULTIPLE VIT-C-FA 60186932858 No Longer Active Jacque Blas MD PhD Active RANITIDINE HCL 150 MG CAPS 1 twice a day RANITIDINE HCL 31878085744 No Longer Active Jacque Blas MD PhD Active PNV-OMEGA 28-0.6-0.4-340 MG CAPS 1 pill by mouth daily PRENAT W/O [id number]-OMEGA 02185678113 No Longer Active Jacque Blas MD PhD Active BACTRIM DS 800-160 MG TAB 1 tab by mouth twice daily TRIMETHOPRIM-SULFAMETHOXAZOLE 99513518025 No Longer Active Jacque Blas MD PhD Active METRONIDAZOLE 250 MG TABS 1 TID METRONIDAZOLE 55457676418 No Longer Active Jacque Blas MD PhD Active TRI-SPRINTEC 0.18/0.215/0.25 MG-35 MCG TABS 1 PO q Day NORGESTIM-ETH ESTRAD TRIPHASIC 36941403002 No Longer Active Jacque Blas MD PhD Active ALPRAZOLAM 0.25 MG TABS 1/2 tab to 1 tab PO TID PRN ALPRAZOLAM 76784728469 No Longer Active Jacque Blas MD PhD Active FLUOXETINE HCL 10 MG CAPS 2 PO q AM FLUOXETINE HCL 15757660312 No Longer Active Jacque lBas MD PhD Active ALPRAZOLAM 0.25 MG TABS 1/2 tab to 1 tab PO TID PRN ALPRAZOLAM 0.25 MG TABS 443145 ALPRAZOLAM Inactive TRI-SPRINTEC 0.18/0.215/0.25 MG-35 MCG TABS 1 PO q Day TRI-SPRINTEC 0.18/0.215/0.25 MG-35 MCG TABS 626248 NORGESTIM-ETH ESTRAD TRIPHASIC Inactive PNV-OMEGA 28-0.6-0.4-340 MG CAPS 1 pill by mouth daily PNV-OMEGA 28-0.6-0.4-340 MG CAPS PRENAT W/O [id number] Inactive RANITIDINE HCL 150 MG CAPS 1 twice a day RANITIDINE HCL 150 MG CAPS 953260 RANITIDINE HCL Inactive FLINSTONES GUMMIES OMEGA-3 DHA CHEW Take one by mouth daily FLINSTONES GUMMIES OMEGA-3 DHA CHEW PEDIATRIC MULTIPLE VIT-C-FA Inactive SERTRALINE HCL 50 MG TABS 1 daily for depression SERTRALINE HCL 50 MG TABS 673649 SERTRALINE HCL Inactive TYLENOL EXTRA STRENGTH 500 MG TABS 2 @ HS TYLENOL EXTRA STRENGTH 500 MG TABS 393000 ACETAMINOPHEN Inactive TRAMADOL HCL 50 MG TABS 1-2 tablets every 6 hours as needed for pain TRAMADOL HCL 50 MG TABS 141624 TRAMADOL HCL Inactive HYDROCODONE-ACETAMINOPHEN 5-325 MG TABS 1 pill three times daily as needed for pain HYDROCODONE-ACETAMINOPHEN 5-325 MG TABS 985156 HYDROCODONE-ACETAMINOPHEN Inactive CITALOPRAM HYDROBROMIDE 10 MG TABS 1 pill daily, for depression/anxiety 02/09 CITALOPRAM HYDROBROMIDE 10 MG TABS 513164 CITALOPRAM HYDROBROMIDE Inactive ROBAXIN 500 MG TAB 1-2 pills up to four times daily if needed for muscle spasms ROBAXIN 500 MG TAB 762789 METHOCARBAMOL Inactive HYDROCODONE-ACETAMINOPHEN 7.5-325 MG TABS 1 four times a day as needed for pain HYDROCODONE-ACETAMINOPHEN 7.5-325 MG TABS 169548 HYDROCODONE-ACETAMINOPHEN Inactive LAMICTAL 25 MG TABS 1 pill by mouth daily x 2 weeks, then 2 pills daily 07/26 LAMICTAL 25 MG TABS 957675 LAMOTRIGINE Inactive FLAGYL 500 MG ORAL TABS four tabs PO x 1 FLAGYL 500 MG ORAL TABS 464143 METRONIDAZOLE Inactive CYCLOBENZAPRINE HCL 10 MG TABS 1/2 - 1 tab by mouth three times daily if needed for spasms/pain CYCLOBENZAPRINE HCL 10 MG TABS 570648 CYCLOBENZAPRINE HCL Inactive CIPRO 500 MG TAB 1 tablet by mouth twice daily CIPRO 500 MG TAB 047198 CIPROFLOXACIN HCL Inactive NICODERM CQ 7 MG/24HR [...] tab daily SEROQUEL 200 MG ORAL TABS 400383 QUETIAPINE FUMARATE Inactive METHOCARBAMOL 500 MG ORAL TABS 1 pill by mouth up to four times daily if needed for muscle spasm/pain METHOCARBAMOL 500 MG ORAL TABS 491961 METHOCARBAMOL Inactive FLUOXETINE HCL 10 MG CAPS 2 PO q AM FLUOXETINE HCL 10 MG CAPS 027597 FLUOXETINE HCL Inactive METRONIDAZOLE 250 MG TABS 1 TID METRONIDAZOLE 250 MG TABS 770379 METRONIDAZOLE Inactive BACTRIM DS 800-160 MG TAB [...] reduced Diphtheria, and acellular Pertussis Immunization) Adacel [EDS826] tetanus toxoid, reduced diphtheria toxoid, and acellular [...] Value Unit Range Description Lab Report: Chlamydia/GC APTIMA/50167 - Lab chlamydia DNA probe NOT DETECTED NOT DETECTED chlamydia DNA probe NOT DETECTED NOT DETECTED chlamydia DNA probe NOT DETECTED NOT DETECTED chlamydia DNA probe NOT DETECTED NOT DETECTED Lab Report: Chlamydia/GC APTIMA/43554 - Microbiology Neisseria gonorrhoeae DNA probe NOT DETECTED NOT DETECTED Neisseria gonorrhoeae DNA probe NOT DETECTED NOT DETECTED Neisseria gonorrhoeae DNA probe NOT DETECTED NOT DETECTED Neisseria gonorrhoeae DNA probe NOT DETECTED NOT DETECTED Lab Report: Chlamydia/GC APTIMA/53972, Drug Abuse Pnl 10-50/28882 - Lab chlamydia DNA probe NOT DETECTED NOT DETECTED Lab Report: Chlamydia/GC APTIMA/86929, Drug Abuse Pnl 10-50/52762 - Microbiology Neisseria gonorrhoeae DNA probe NOT [...] pH, urine, semiquantitative 7.0 5.0-8.5 Office Visit: [facility] removal - Chemistry human chorionic gonadotropin, urine, qualitative (urine test) Negative Encounters Code Encounter Date Provider Facility CPT-30783 Level 3 Est. Patient 12:37:07 CDT Jacque Blas MD [facility] CPT-80023 Level 3 Est. Patient 20:19:50 CIVIL STRUCTURAL ENGINEER Jacque Blas MD [facility] CPT-54282 Level 4 Est. Patient 17:32:49 CIVIL STRUCTURAL ENGINEER Jacque Blas MD [facility] CPT-91780 Level 3 Est. Patient 14:38:20 CDT Jacque Blas MD [facility] CPT-78458 Level 4 Est. Patient 20:19:14 CDT Jacque Blas MD [facility] CPT-78167 Level 3 Est. Patient 15:41:32 CDT Jacque Blas MD [facility] CPT-96180 Level 3 Est. Patient 18:02:00 CIVIL STRUCTURAL ENGINEER Jacque Blas MD [facility] CPT-47572 Level 3 Est. Patient 21:41:26 CIVIL STRUCTURAL ENGINEER Jacque Blas MD [facility] CPT-46847 Level 4 Est. Patient 14:43:47 CIVIL STRUCTURAL ENGINEER Jacque Blas MD [facility] CPT-43000 Level 3 Est. Patient 20:16:54 CIVIL STRUCTURAL ENGINEER Jacque Blas MD [facility] CPT-49104 Level 3 Est. Patient 13:31:37 CDT Jacque Blas MD [facility] CPT-19045 Level 3 New Patient 18:16:07 CDT Jacque Blas MD [facility] Procedures Code Procedure Name Date Entry Date Standard Description CPT-37829 Fluzone Quadrivalent Intramuscular Suspension 0.5 ML 16: 31:47 CIVIL STRUCTURAL ENGINEER CPT-50810 Immunization Single Admin 16:31:47 CIVIL STRUCTURAL ENGINEER CPT-04562 Immunization Single Admin 13:26:18 CIVIL STRUCTURAL ENGINEER CPT-60933 Fluzone Intramuscular Injectable 13:26:18 CIVIL STRUCTURAL ENGINEER CPT-40540 Fluzone Thim Free 36mo and older 12:03:33 CIVIL STRUCTURAL ENGINEER CPT-90502 UHCG (floor use only) 11:49:41 CIVIL STRUCTURAL ENGINEER CPT-OV Office Visit 11:49:41 CIVIL STRUCTURAL ENGINEER CPT-31021 LS spine comp w obliq 15:53:02 CIVIL STRUCTURAL ENGINEER CPT-54660 C-Spine Min 4V 15:53:02 CIVIL STRUCTURAL ENGINEER CPT-61767 UHCG (floor use only) 14:15:45 CDT CPT-65564 UHCG (floor use only) 14:09:15 CDT CPT-J7302 Mirena IUD 13:30:58 CDT CPT-62456 Insertion of IUD 13:30:58 CDT CPT-OV Office Visit 13:30:58 CDT CPT-20632 Visit 10:48:09 CDT CPT-82561 Visit 15:34:57 CDT CPT-96994 Visit 15:25:55 CDT CPT-29834 Visit 13:58:45 CDT CPT-57252 Sono OB comp > 14 weeks 16:57:22 CDT CPT-LR Lesion Removal 09:33:27 CDT CPT-25319 Visit 12:50:42 CDT CPT-52024 Visit 18:34:25 CDT CPT-000 Give Appropriate Tetanus Booster 09:16:14 CDT CPT-14449 Administration single or combination vaccine inc oral 11 :36:32 CDT CPT-50355 Tdap 11:36:32 CDT CPT-53854 Visit 09:16:14 CDT CPT-96839 Visit 13:35:24 CDT CPT-48579 Sono OB comp > 14 weeks 11:46:07 CDT CPT-82293 Visit 17:08:15 CDT CPT-05014 Sono OB comp <14 weeks 15:47:19 CIVIL STRUCTURAL ENGINEER CPT-42407 Visit 13:28:37 CDT CPT-73330 Spec Collection and Handling Fee 12:41:37 CDT CPT-64427 Visit 12:41:07 CDT CPT-32344 Visit 18:48:53 CDT CPT-53811 Visit 16:25:17 CDT CPT-27021 Sono OB comp > 14 weeks 11:38:18 CDT CPT-07882 Visit 13:36:17 CDT CPT-22942 Visit 13:48:22 CDT
--- OUTSIDE RECORDS SUMMARY | 2017-11-07 09:18 | XMS REPORT | Clinical Summary ---
Author Author Admin, MARCO ANTONIO Gardiner [facility] Address Unknown Phone Unavailable Allergies, Adverse Reactions, [...] 1 pill by mouth twice daily METRONIDAZOLE 56859096065 Active Jacque Blas MD PhD Active DIFLUCAN 150 MG TABS 1 pill every other day x 2 doses FLUCONAZOLE 32303401702 Active Jacque Blas MD PhD Active PHENTERMINE HCL 37.5 MG TABS 1/2 qAM, can increase to 1 qAM - take 30 min before or 2 hrs after breakfast, for weight loss PHENTERMINE HCL 17506079117 Active Jacque lBas MD PhD Active HYDROXYZINE HCL 25 MG TABS 1/2 - 1 pill by mouth four times daily , if neeed for nerves HYDROXYZINE HCL 18214763531 Active Jacque Blas MD PhD Active METHOCARBAMOL 500 MG ORAL TABS 1 pill by mouth up to four times daily if needed for muscle spasm/pain METHOCARBAMOL 41704879444 No Longer Active Jacque Blas MD PhD Active SEROQUEL 200 MG ORAL TABS take 1 tab daily QUETIAPINE FUMARATE 07298541337 No Longer Active Jacque Blas MD PhD Active NICODERM CQ 14 MG/24HR PT24 1 patch daily x 2 weeks, then decrease to 7's - for smoking cessation NICOTINE 96655844932 No Longer Active Jacque lBas MD PhD Active NICODERM CQ 7 MG/24HR PT24 1 patch daily x 2 weeks - for smoking cessation NICOTINE 77637540969 No Longer Active Jacque Blas MD PhD Active CIPRO 500 MG TAB 1 tablet by mouth twice daily CIPROFLOXACIN HCL 93151526810 No Longer Active Jacque Blas MD PhD Active CYCLOBENZAPRINE HCL 10 MG TABS 1/2 to 1 tablet by mouth q hs, prn CYCLOBENZAPRINE HCL 34162524460 Active Eva Alejo APRN Active MEDROL (DIAN) 4 MG TABS 6 pills x 1 day, then 5 pills x 1 day then 4 pills x 1 day, then 3 pills x 1 day, then 2 pills x 1 day, then 1 pill x 1 day, then stop METHYLPREDNISOLONE 11147446664 No Longer Active Rajllamanda Alejo APRN Active CYCLOBENZAPRINE HCL 10 MG TABS 1/2 - 1 tab by mouth three times daily if needed for spasms/pain CYCLOBENZAPRINE HCL 14431969927 No Longer Active Eva Alejo APRN Active FLAGYL 500 MG ORAL TABS four tabs PO x 1 METRONIDAZOLE 59944831110 No Longer Active Jacque Blas MD PhD Active BACTRIM DS 800-160 MG ORAL TABS one tab PO BID x 3 days SULFAMETHOXAZOLE-TRIMETHOPRIM 40143546092 No Longer Active Chloe Wagner MD Active LAMICTAL 25 MG TABS 1 pill by mouth daily x 2 weeks, then 2 pills daily 07/26 LAMOTRIGINE 29169266353 No Longer Active Jacque Blas MD PhD Active LATUDA 40 MG TABS Take one by mouth daily LURASIDONE HCL 90028379607 Active Jacque Blas MD PhD Active HYDROCODONE-ACETAMINOPHEN 7.5-325 MG TABS 1 four times a day as needed for pain HYDROCODONE-ACETAMINOPHEN 09094409206 No Longer Active Jacque Blas MD PhD Active ROBAXIN 500 MG TAB 1-2 pills up to four times daily if needed for muscle spasms METHOCARBAMOL 94005774626 No Longer Active Jacque Blas MD PhD Active CITALOPRAM HYDROBROMIDE 10 MG TABS 1 pill daily, for depression/anxiety 02/09 CITALOPRAM HYDROBROMIDE 82586067361 No Longer Active Jacque Blas MD PhD Active HYDROCODONE-ACETAMINOPHEN 5-325 MG TABS 1 pill three times daily as needed for pain HYDROCODONE-ACETAMINOPHEN 00847343888 No Longer Active Jacque Blas MD PhD Active IBUPROFEN 600 MG TAB 1 pill four times daily, with food IBUPROFEN 57148847232 Active Jacque Blas MD PhD Active TRAMADOL HCL 50 MG TABS 1-2 tablets every 6 hours as needed for pain TRAMADOL HCL 02019972323 No Longer Active Jacque Blas MD PhD Active TYLENOL EXTRA STRENGTH 500 MG TABS 2 @ HS ACETAMINOPHEN 51162639328 No Longer Active Jacque Blas MD PhD Active SERTRALINE HCL 50 MG TABS 1 daily for depression SERTRALINE HCL 86972009543 No Longer Active Jacque Blas MD PhD Active BACTRIM DS 800-160 MG TAB 1 tab by mouth twice daily TRIMETHOPRIM-SULFAMETHOXAZOLE 31381770891 No Longer Active Eva Alejo APRN Active FLINSTONES GUMMIES OMEGA-3 DHA CHEW Take one by mouth daily PEDIATRIC MULTIPLE VIT-C-FA 14670420323 No Longer Active Jacque Blas MD PhD Active RANITIDINE HCL 150 MG CAPS 1 twice a day RANITIDINE HCL 52915287234 No Longer Active Jacque Blas MD PhD Active PNV-OMEGA 28-0.6-0.4-340 MG CAPS 1 pill by mouth daily PRENAT W/O [id number]-[id number]-FA-OMEGA 70360483409 No Longer Active Jacque Blas MD PhD Active BACTRIM DS 800-160 MG TAB 1 tab by mouth twice daily TRIMETHOPRIM-SULFAMETHOXAZOLE 65285170285 No Longer Active Jacque Blas MD PhD Active METRONIDAZOLE 250 MG TABS 1 TID METRONIDAZOLE 10422581455 No Longer Active Jacque Blas MD PhD Active TRI-SPRINTEC 0.18/0.215/0.25 MG-35 MCG TABS 1 PO q Day NORGESTIM-ETH ESTRAD TRIPHASIC 85358379319 No Longer Active Jacque Blas MD PhD Active ALPRAZOLAM 0.25 MG TABS 1/2 tab to 1 tab PO TID PRN ALPRAZOLAM 41742400871 No Longer Active Jacque Blas MD PhD Active FLUOXETINE HCL 10 MG CAPS 2 PO q AM FLUOXETINE HCL 53059753124 No Longer Active Jacque Blas MD PhD Active ALPRAZOLAM 0.25 MG TABS 1/2 tab to 1 tab PO TID PRN ALPRAZOLAM 0.25 MG TABS 910003 ALPRAZOLAM Inactive TRI-SPRINTEC 0.18/0.215/0.25 MG-35 MCG TABS 1 PO q Day TRI-SPRINTEC 0.18/0.215/0.25 MG-35 MCG TABS 974125 NORGESTIM-ETH ESTRAD TRIPHASIC Inactive PNV-OMEGA 28-0.6-0.4-340 MG CAPS 1 pill by mouth daily PNV-OMEGA 28-0.6-0.4-340 MG CAPS PRENAT W/O [id number]-OMEGA Inactive RANITIDINE HCL 150 MG CAPS 1 twice a day RANITIDINE HCL 150 MG CAPS 986859 RANITIDINE HCL Inactive FLINSTONES GUMMIES OMEGA-3 DHA CHEW Take one by mouth daily FLINSTONES GUMMIES OMEGA-3 DHA CHEW PEDIATRIC MULTIPLE VIT-C-FA Inactive SERTRALINE HCL 50 MG TABS 1 daily for depression SERTRALINE HCL 50 MG TABS 885079 SERTRALINE HCL Inactive TYLENOL EXTRA STRENGTH 500 MG TABS 2 @ HS TYLENOL EXTRA STRENGTH 500 MG TABS 287583 ACETAMINOPHEN Inactive TRAMADOL HCL 50 MG TABS 1-2 tablets every 6 hours as needed for pain TRAMADOL HCL 50 MG TABS 669237 TRAMADOL HCL Inactive HYDROCODONE-ACETAMINOPHEN 5-325 MG TABS 1 pill three times daily as needed for pain HYDROCODONE-ACETAMINOPHEN 5-325 MG TABS 420029 HYDROCODONE-ACETAMINOPHEN Inactive CITALOPRAM HYDROBROMIDE 10 MG TABS 1 pill daily, for depression/anxiety 02/09 CITALOPRAM HYDROBROMIDE 10 MG TABS 675909 CITALOPRAM HYDROBROMIDE Inactive ROBAXIN 500 MG TAB 1-2 pills up to four times daily if needed for muscle spasms ROBAXIN 500 MG TAB 132946 METHOCARBAMOL Inactive HYDROCODONE-ACETAMINOPHEN 7.5-325 MG TABS 1 four times a day as needed for pain HYDROCODONE-ACETAMINOPHEN 7.5-325 MG TABS 199875 HYDROCODONE-ACETAMINOPHEN Inactive LAMICTAL 25 MG TABS 1 pill by mouth daily x 2 weeks, then 2 pills daily 07/26 LAMICTAL 25 MG TABS 659990 LAMOTRIGINE Inactive FLAGYL 500 MG ORAL TABS four tabs PO x 1 FLAGYL 500 MG ORAL TABS 505488 METRONIDAZOLE Inactive CYCLOBENZAPRINE HCL 10 MG TABS 1/2 - 1 tab by mouth three times daily if needed for spasms/pain CYCLOBENZAPRINE HCL 10 MG TABS 446504 CYCLOBENZAPRINE HCL Inactive CIPRO 500 MG TAB 1 tablet by mouth twice daily CIPRO 500 MG TAB 335150 CIPROFLOXACIN HCL Inactive NICODERM CQ 7 MG/24HR [...] tab daily SEROQUEL 200 MG ORAL TABS 689772 QUETIAPINE FUMARATE Inactive METHOCARBAMOL 500 MG ORAL TABS 1 pill by mouth up to four times daily if needed for muscle spasm/pain METHOCARBAMOL 500 MG ORAL TABS 982667 METHOCARBAMOL Inactive FLUOXETINE HCL 10 MG CAPS 2 PO q AM FLUOXETINE HCL 10 MG CAPS 628852 FLUOXETINE HCL Inactive METRONIDAZOLE 250 MG TABS 1 TID METRONIDAZOLE 250 MG TABS 283698 METRONIDAZOLE Inactive BACTRIM DS 800-160 MG TAB [...] reduced Diphtheria, and acellular Pertussis Immunization) Adacel [TQD522] tetanus toxoid, reduced diphtheria toxoid, and acellular [...] Value Unit Range Description Lab Report: Chlamydia/GC APTIMA/85300 - Lab chlamydia DNA probe NOT DETECTED NOT DETECTED chlamydia DNA probe NOT DETECTED NOT DETECTED chlamydia DNA probe NOT DETECTED NOT DETECTED chlamydia DNA probe NOT DETECTED NOT DETECTED Lab Report: Chlamydia/GC APTIMA/46445 - Microbiology Neisseria gonorrhoeae DNA probe NOT DETECTED NOT DETECTED Neisseria gonorrhoeae DNA probe NOT DETECTED NOT DETECTED Neisseria gonorrhoeae DNA probe NOT DETECTED NOT DETECTED Neisseria gonorrhoeae DNA probe NOT DETECTED NOT DETECTED Lab Report: Chlamydia/GC APTIMA/73086, Drug Abuse Pnl 10-50/61129 - Lab chlamydia DNA probe NOT DETECTED NOT DETECTED Lab Report: Chlamydia/GC APTIMA/35564, Drug Abuse Pnl 10-50/92119 - Microbiology Neisseria gonorrhoeae DNA probe NOT [...] pH, urine, semiquantitative 7.0 5.0-8.5 Office Visit: [facility] removal - Chemistry human chorionic gonadotropin, urine, qualitative (urine test) Negative Encounters Code Encounter Date Provider Facility CPT-22335 Level 3 Est. Patient 12:37:07 CDT Jacque Blas MD [facility] CPT-09056 Level 3 Est. Patient 20:19:50 TAXICAB STARTER Jacque Blas MD [facility] CPT-59925 Level 4 Est. Patient 17:32:49 TAXICAB STARTER Jacque Blas MD [facility] CPT-16487 Level 3 Est. Patient 14:38:20 CDT Jacque Blas MD [facility] CPT-79574 Level 4 Est. Patient 20:19:14 CDT Jacque Blas MD [facility] CPT-04590 Level 3 Est. Patient 15:41:32 CDT Jacque Blas MD [facility] CPT-79623 Level 3 Est. Patient 18:02:00 TAXICAB STARTER Jacque Blas MD [facility] CPT-94826 Level 3 Est. Patient 21:41:26 TAXICAB STARTER Jacque Blas MD [facility] CPT-86892 Level 4 Est. Patient 14:43:47 TAXICAB STARTER Jacque Blas MD [facility] CPT-95162 Level 3 Est. Patient 20:16:54 TAXICAB STARTER Jacque Blas MD [facility] CPT-77800 Level 3 Est. Patient 13:31:37 CDT Jacque Blas MD [facility] CPT-28650 Level 3 New Patient 18:16:07 CDT Jacque Blas MD [facility] Procedures Code Procedure Name Date Entry Date Standard Description CPT-96462 Fluzone Quadrivalent Intramuscular Suspension 0.5 ML 16: 31:47 TAXICAB STARTER CPT-76664 Immunization Single Admin 16:31:47 TAXICAB STARTER CPT-24044 Immunization Single Admin 13:26:18 TAXICAB STARTER CPT-17737 Fluzone Intramuscular Injectable 13:26:18 TAXICAB STARTER CPT-70684 Fluzone Thim Free 36mo and older 12:03:33 TAXICAB STARTER CPT-97556 UHCG (floor use only) 11:49:41 TAXICAB STARTER CPT-OV Office Visit 11:49:41 TAXICAB STARTER CPT-46228 LS spine comp w obliq 15:53:02 TAXICAB STARTER CPT-68953 C-Spine Min 4V 15:53:02 TAXICAB STARTER CPT-42234 UHCG (floor use only) 14:15:45 CDT CPT-41544 UHCG (floor use only) 14:09:15 CDT CPT-J7302 Mirena IUD 13:30:58 CDT CPT-23063 Insertion of IUD 13:30:58 CDT CPT-OV Office Visit 13:30:58 CDT CPT-59380 Visit 10:48:09 CDT CPT-21158 Visit 15:34:57 CDT CPT-06095 Visit 15:25:55 CDT CPT-84028 Visit 13:58:45 CDT CPT-33268 Sono OB comp > 14 weeks 16:57:22 CDT CPT-LR Lesion Removal 09:33:27 CDT CPT-44270 Visit 12:50:42 CDT CPT-39001 Visit 18:34:25 CDT CPT-000 Give Appropriate Tetanus Booster 09:16:14 CDT CPT-35168 Administration single or combination vaccine inc oral 11 :36:32 CDT CPT-49537 Tdap 11:36:32 CDT CPT-55966 Visit 09:16:14 CDT CPT-13574 Visit 13:35:24 CDT CPT-46155 Sono OB comp > 14 weeks 11:46:07 CDT CPT-21311 Visit 17:08:15 CDT CPT-75670 Sono OB comp <14 weeks 15:47:19 TAXICAB STARTER CPT-25830 Visit 13:28:37 CDT CPT-05388 Spec Collection and Handling Fee 12:41:37 CDT CPT-46819 Visit 12:41:07 CDT CPT-82905 Visit 18:48:53 CDT CPT-88537 Visit 16:25:17 CDT CPT-04216 Sono OB comp > 14 weeks 11:38:18 CDT CPT-61873 Visit 13:36:17 CDT CPT-73540 Visit 13:48:22 CDT
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
--- OUTSIDE RECORDS SUMMARY | 2017-11-07 09:18 | XMS REPORT ---
Author Author [facility] Address [address] [place] [address] Care Team Providers Care Claims Coordinator Name Role Phone EDDY BEAUCHAMP Unavailable PROBLEMS Type Condition ICD9-CM Code ECU83-AQ Code Onset Dates Condition Status SNOMED Code Assessment High risk sexual behavior Z72.51 14 Jul, 2016 Active 536868467 Assessment Well woman exam Z01.419 14 Jul, 2016 Active 455454643 Assessment Dyspareunia in female N94.1 14 Jul, 2016 Active 66343809 Assessment Encounter for IUD removal Z30.432 14 Jul, 2016 Active 804427562 ALLERGIES Substance Reaction Event Type Date Status N.K.D.A. Unknown Non Drug Allergy Jul, Unknown SOCIAL HISTORY No smoking Hx information available PLAN OF CARE VITAL SIGNS Height 66.5 in 2016-07-17 Weight 240.4 lbs 2016-07-17 Heart Rate 72 bpm 2016-07-17 Respiratory Rate 18 2016-07-17 BMI 38.22 kg/m2 2016-07-17 Blood pressure systolic 106 mmHg 2016-07-17 Blood pressure diastolic 68 mmHg 2016-07-17 MEDICATIONS Medication Instructions Dosage Frequency Start Date End Date Duration Status Mirena Active Ambien 10 MG Orally Once a day 1 tablet at bedtime as needed 24h Active Zoloft 100 MG Orally Once a day 1 tablet 24h Active RESULTS Name Result Date Reference Range WET PREP/MOUNT 2016-07-17 Trichomonas Exam Negative Negative Yeast Exam Negative Negative Clue Cell Exam Negative Negative GC/CHLAMYDIA (SWAB OR URINE)-RAPID 2016-07-17 Chlamydia trachomatis, ALF Negative Negative Neisseria gonorrhoeae, ALF Negative Negative PAP TEST, HPV IF ASCUS 2016-07-17 DIAGNOSIS: Specimen adequacy: Clinician provided ICD10: Performed by: . . Note: . PDF Report 2016-07-17 PDF Report1 LCLS PROCEDURES Procedure Date Ordered Related Diagnosis Body Site Preventive Care New Pt. Age 18-39 Jul 17, 2016 SPECIMEN HANDLING Jul 17, 2016 N.GONORRHOEAE, DNA, AMP PROB Jul 17, 2016 CHYLMD TRACH, DNA, AMP PROBE Jul 17, 2016 SMEAR, WET MOUNT, SALINE/INK Jul 17, 2016 IMMUNIZATIONS No Known Immunizations
--- OUTSIDE RECORDS SUMMARY | 2017-11-07 09:18 | XMS REPORT ---
Author Author [facility] Medical Staff Organization [facility] Address [address] [place], [place] [address] Phone [phone] Care Team Providers Care Dairy Supplies Sales Representative Name Role Phone RAMSES MENDOZA, EDDY PP [phone] Summary purpose TRANSITION OF CARE AUTO GENERATION Chief Complaint and Reason for Visit Admit Diagnosis 1 LUMBAGO Problem list No authorized problems tracked for continuity of care are available for this visit. Encounters No authorized problems tracked for encounter diagnoses are available for this visit. Medications No home medications recorded for this patient visit Allergies, adverse reactions, alerts Allergen Category Ingredient Status Reaction Severity Onset No Known Drug Allergies No known drug allergies No Known Drug Allergies Confirmed or Verified Immunizations No immunizations recorded for this patient visit Relevant diagnostic tests and/or laboratory data RESULTS Radiology Results [id number] LUMBAR SPINE XRAY - 2V PACs Image DATE OF EXAM: Jan 23 2015 RAD 1027-LUMBAR SPINE XRAY-2 VIEW : RADIOLOGY REPORT DATE OF SERVICE: 01/23/15 HISTORY: Low back pain, myalgia and myositis LUMBAR SPINE 2 [id number] HOURS The lumbar vertebrae are normal in height. There is mild L5-S1 spondylolisthesis. There is probable L5 spondylolysis. The disc spaces are otherwise well maintained. IMPRESSION: L5-S1 spondylolisthesis and probable L5 spondylolysis. Johnnie Lazcano MD Reanna/me01/23/2015 09:34:00 / 01/23/2015 10:25:41 cc:Dr. Gilmer Romero This document has been electronically Signed by: On: DATE OF EXAM: Jan 23 2015 RAD 1027-LUMBAR SPINE XRAY-2 VIEW : RADIOLOGY REPORT DATE OF SERVICE: 01/23/15 HISTORY: Low back pain, myalgia and myositis LUMBAR SPINE 2 [id number] HOURS The lumbar vertebrae are normal in height. There is mild L5-S1 spondylolisthesis. There is probable L5 spondylolysis. The disc spaces are otherwise well maintained. IMPRESSION: L5-S1 spondylolisthesis and probable L5 spondylolysis. Johnnie Lazcano MD MWD/nh01/23/2015 09:34:00 / 01/23/2015 10:25:41 cc:Dr. Gilmer Romero This document has been electronically Signed by: JOHNNIE LAZCANO On: Jan 23 2015 11:59A Result Amended on 2015-01-23 at 11:59:59. Previous status was IA. History of procedures Procedure Code Code Type Description Date Performed Performing Physician [id number] CPT-4 X-RAY EXAM OF LOWER SPINE 01-23-2015 GILMER ROMERO Functional status No functional or cognitive status [...]
--- OUTSIDE RECORDS SUMMARY | 2017-11-07 09:19 | XMS REPORT | Clinical Summary ---
Author Author Admin, MARCO ANTONIO [facility] Address Unknown Phone Unavailable Allergies, Adverse Reactions, [...] 1 pill by mouth twice daily METRONIDAZOLE 89935658300 Active Jacque Blas MD PhD Active DIFLUCAN 150 MG TABS 1 pill every other day x 2 doses FLUCONAZOLE 61545418420 No Longer Active Jacque Blas MD PhD Active PHENTERMINE HCL 37.5 MG TABS 1/2 qAM, can increase to 1 qAM - take 30 min before or 2 hrs after breakfast, for weight loss PHENTERMINE HCL 92574931560 Active Jacque Blas MD PhD Active HYDROXYZINE HCL 25 MG TABS 1/2 - 1 pill by mouth four times daily , if neeed for nerves HYDROXYZINE HCL 78456120354 Active Jacque Blas MD PhD Active METHOCARBAMOL 500 MG ORAL TABS 1 pill by mouth up to four times daily if needed for muscle spasm/pain METHOCARBAMOL 09785908261 No Longer Active Jacque Blas MD PhD Active SEROQUEL 200 MG ORAL TABS take 1 tab daily QUETIAPINE FUMARATE 97681579958 No Longer Active Jacque Blas MD PhD Active NICODERM CQ 14 MG/24HR PT24 1 patch daily x 2 weeks, then decrease to 7's - for smoking cessation NICOTINE 41604200500 No Longer Active Jacque Blas MD PhD Active NICODERM CQ 7 MG/24HR PT24 1 patch daily x 2 weeks - for smoking cessation NICOTINE 72140896216 No Longer Active Jacque Blas MD PhD Active CIPRO 500 MG TAB 1 tablet by mouth twice daily CIPROFLOXACIN HCL 40245496485 No Longer Active Jacque Blas MD PhD Active CYCLOBENZAPRINE HCL 10 MG TABS 1/2 to 1 tablet by mouth q hs, prn CYCLOBENZAPRINE HCL 52514738237 Active Eva Alejo APRN Active MEDROL (DIAN) 4 MG TABS 6 pills x 1 day, then 5 pills x 1 day then 4 pills x 1 day, then 3 pills x 1 day, then 2 pills x 1 day, then 1 pill x 1 day, then stop METHYLPREDNISOLONE 95166125095 No Longer Active Rajllina Sapna CONNER Active CYCLOBENZAPRINE HCL 10 MG TABS 1/2 - 1 tab by mouth three times daily if needed for spasms/pain CYCLOBENZAPRINE HCL 56168038208 No Longer Active Rajllamanda Alejo APRN Active FLAGYL 500 MG ORAL TABS four tabs PO x 1 METRONIDAZOLE 47272095652 No Longer Active Jacque Blas MD PhD Active BACTRIM DS 800-160 MG ORAL TABS one tab PO BID x 3 days SULFAMETHOXAZOLE-TRIMETHOPRIM 30214275122 No Longer Active Chloe Wagner MD Active LAMICTAL 25 MG TABS 1 pill by mouth daily x 2 weeks, then 2 pills daily 07/26 LAMOTRIGINE 02749928324 No Longer Active Jacque Blas MD PhD Active LATUDA 40 MG TABS Take one by mouth daily LURASIDONE HCL 64786454921 Active Jacque Blas MD PhD Active HYDROCODONE-ACETAMINOPHEN 7.5-325 MG TABS 1 four times a day as needed for pain HYDROCODONE-ACETAMINOPHEN 51364928798 No Longer Active Jacque Blas MD PhD Active ROBAXIN 500 MG TAB 1-2 pills up to four times daily if needed for muscle spasms METHOCARBAMOL 88672160381 No Longer Active Jacque Blas MD PhD Active CITALOPRAM HYDROBROMIDE 10 MG TABS 1 pill daily, for depression/anxiety 02/09 CITALOPRAM HYDROBROMIDE 94520463326 No Longer Active Jacque Blas MD PhD Active HYDROCODONE-ACETAMINOPHEN 5-325 MG TABS 1 pill three times daily as needed for pain HYDROCODONE-ACETAMINOPHEN 40211770924 No Longer Active Jacque Blas MD PhD Active IBUPROFEN 600 MG TAB 1 pill four times daily, with food IBUPROFEN 89434720915 Active Jacque Blas MD PhD Active TRAMADOL HCL 50 MG TABS 1-2 tablets every 6 hours as needed for pain TRAMADOL HCL 98997531966 No Longer Active Jacque Blas MD PhD Active TYLENOL EXTRA STRENGTH 500 MG TABS 2 @ HS ACETAMINOPHEN 70999905168 No Longer Active Jacque Blas MD PhD Active SERTRALINE HCL 50 MG TABS 1 daily for depression SERTRALINE HCL 36173949372 No Longer Active Jacque Blas MD PhD Active BACTRIM DS 800-160 MG TAB 1 tab by mouth twice daily TRIMETHOPRIM-SULFAMETHOXAZOLE 52936844145 No Longer Active Eva Alejo APRN Active FLINSTONES GUMMIES OMEGA-3 DHA CHEW Take one by mouth daily PEDIATRIC MULTIPLE VIT-C-FA 08656454015 No Longer Active Jacque Blas MD PhD Active RANITIDINE HCL 150 MG CAPS 1 twice a day RANITIDINE HCL 88083822707 No Longer Active Jacque Blas MD PhD Active PNV-OMEGA 28-0.6-0.4-340 MG CAPS 1 pill by mouth daily PRENAT W/O I-BG-YYMNA-FA-OMEGA 13188147542 No Longer Active Jacque Blas MD PhD Active BACTRIM DS 800-160 MG TAB 1 tab by mouth twice daily TRIMETHOPRIM-SULFAMETHOXAZOLE 22837562764 No Longer Active Jacque Blas MD PhD Active METRONIDAZOLE 250 MG TABS 1 TID METRONIDAZOLE 22393896755 No Longer Active Jacque Blas MD PhD Active TRI-SPRINTEC 0.18/0.215/0.25 MG-35 MCG TABS 1 PO q Day NORGESTIM-ETH ESTRAD TRIPHASIC 65954460483 No Longer Active Jacque Blas MD PhD Active ALPRAZOLAM 0.25 MG TABS 1/2 tab to 1 tab PO TID PRN ALPRAZOLAM 67811461947 No Longer Active Jacque Blas MD PhD Active FLUOXETINE HCL 10 MG CAPS 2 PO q AM FLUOXETINE HCL 89317800648 No Longer Active Jacque Blas MD PhD Active ALPRAZOLAM 0.25 MG TABS 1/2 tab to 1 tab PO TID PRN ALPRAZOLAM 0.25 MG TABS 201590 ALPRAZOLAM Inactive TRI-SPRINTEC 0.18/0.215/0.25 MG-35 MCG TABS 1 PO q Day TRI-SPRINTEC 0.18/0.215/0.25 MG-35 MCG TABS 751143 NORGESTIM-ETH ESTRAD TRIPHASIC Inactive PNV-OMEGA 28-0.6-0.4-340 MG CAPS 1 pill by mouth daily PNV-OMEGA 28-0.6-0.4-340 MG CAPS PRENAT W/O I-FG-TISPB-FA-OMEGA Inactive RANITIDINE HCL 150 MG CAPS 1 twice a day RANITIDINE HCL 150 MG CAPS 493767 RANITIDINE HCL Inactive FLINSTONES GUMMIES OMEGA-3 DHA CHEW Take one by mouth daily FLINSTONES GUMMIES OMEGA-3 DHA CHEW PEDIATRIC MULTIPLE VIT-C-FA Inactive SERTRALINE HCL 50 MG TABS 1 daily for depression SERTRALINE HCL 50 MG TABS 782557 SERTRALINE HCL Inactive TYLENOL EXTRA STRENGTH 500 MG TABS 2 @ HS TYLENOL EXTRA STRENGTH 500 MG TABS 184520 ACETAMINOPHEN Inactive TRAMADOL HCL 50 MG TABS 1-2 tablets every 6 hours as needed for pain TRAMADOL HCL 50 MG TABS 896600 TRAMADOL HCL Inactive HYDROCODONE-ACETAMINOPHEN 5-325 MG TABS 1 pill three times daily as needed for pain HYDROCODONE-ACETAMINOPHEN 5-325 MG TABS 209745 HYDROCODONE-ACETAMINOPHEN Inactive CITALOPRAM HYDROBROMIDE 10 MG TABS 1 pill daily, for depression/anxiety 02/09 CITALOPRAM HYDROBROMIDE 10 MG TABS 585376 CITALOPRAM HYDROBROMIDE Inactive ROBAXIN 500 MG TAB 1-2 pills up to four times daily if needed for muscle spasms ROBAXIN 500 MG TAB 916245 METHOCARBAMOL Inactive HYDROCODONE-ACETAMINOPHEN 7.5-325 MG TABS 1 four times a day as needed for pain HYDROCODONE-ACETAMINOPHEN 7.5-325 MG TABS 504977 HYDROCODONE-ACETAMINOPHEN Inactive LAMICTAL 25 MG TABS 1 pill by mouth daily x 2 weeks, then 2 pills daily 07/26 LAMICTAL 25 MG TABS 666285 LAMOTRIGINE Inactive FLAGYL 500 MG ORAL TABS four tabs PO x 1 FLAGYL 500 MG ORAL TABS 612956 METRONIDAZOLE Inactive CYCLOBENZAPRINE HCL 10 MG TABS 1/2 - 1 tab by mouth three times daily if needed for spasms/pain CYCLOBENZAPRINE HCL 10 MG TABS 331872 CYCLOBENZAPRINE HCL Inactive CIPRO 500 MG TAB 1 tablet by mouth twice daily CIPRO 500 MG TAB 698500 CIPROFLOXACIN HCL Inactive NICODERM CQ 7 MG/24HR [...] tab daily SEROQUEL 200 MG ORAL TABS 310020 QUETIAPINE FUMARATE Inactive METHOCARBAMOL 500 MG ORAL TABS 1 pill by mouth up to four times daily if needed for muscle spasm/pain METHOCARBAMOL 500 MG ORAL TABS 963474 METHOCARBAMOL Inactive FLUOXETINE HCL 10 MG CAPS 2 PO q AM FLUOXETINE HCL 10 MG CAPS 226047 FLUOXETINE HCL Inactive METRONIDAZOLE 250 MG TABS 1 TID METRONIDAZOLE 250 MG TABS 211272 METRONIDAZOLE Inactive BACTRIM DS 800-160 MG TAB [...] x 2 doses DIFLUCAN 150 MG TABS 234528 FLUCONAZOLE Inactive Advance Directives Directive Description Start Date PERMISSION TO SHARE Immunizations Vaccine Administration Date Value Standard Description dT (Diphtheria and Tetanus) booster given given Td(adult) unspecified formulation Adacel (Tetanus, reduced Diphtheria, and acellular Pertussis Immunization) Adacel [[id number]] tetanus toxoid, reduced diphtheria toxoid, and acellular [...] Value Unit Range Description Lab Report: Chlamydia/GC APTIMA/19132 - Lab chlamydia DNA probe NOT DETECTED NOT DETECTED chlamydia DNA probe NOT DETECTED NOT DETECTED chlamydia DNA probe NOT DETECTED NOT DETECTED chlamydia DNA probe NOT DETECTED NOT DETECTED chlamydia DNA probe NOT DETECTED NOT DETECTED Lab Report: Chlamydia/GC APTIMA/29131 - Microbiology Neisseria gonorrhoeae DNA probe NOT DETECTED NOT DETECTED Neisseria gonorrhoeae DNA probe NOT DETECTED NOT DETECTED Neisseria gonorrhoeae DNA probe NOT DETECTED NOT DETECTED Neisseria gonorrhoeae DNA probe NOT DETECTED NOT DETECTED Neisseria gonorrhoeae DNA probe NOT DETECTED NOT DETECTED Lab Report: Chlamydia/GC APTIMA/45804, Drug Abuse Pnl 10-50/70581 - Lab chlamydia DNA probe NOT DETECTED NOT DETECTED Lab Report: Chlamydia/GC APTIMA/54574, Drug Abuse Pnl 10-50/58422 - Microbiology Neisseria gonorrhoeae DNA probe NOT [...] pH, urine, semiquantitative 7.0 5.0-8.5 Office Visit: preethi removal - Chemistry human chorionic gonadotropin, urine, qualitative (urine test) Negative Encounters Code Encounter Date Provider Facility CPT-04384 Level 3 Est. Patient 12:37:07 CDT Jacque Blas MD [facility] CPT-99912 Level 3 Est. Patient 20:19:50 LINOLEUM LAYER APPRENTICE Jacque Blas MD [facility] CPT-63403 Level 4 Est. Patient 17:32:49 LINOLEUM LAYER APPRENTICE Jacque Blas MD [facility]-29340 Level 3 Est. Patient 14:38:20 CDT Jacque Blas MD [facility] CPT-18204 Level 4 Est. Patient 20:19:14 CDT Jacque Blas MD [facility] CPT-28543 Level 3 Est. Patient 15:41:32 CDT Jacque Blas MD [facility] CPT-14216 Level 3 Est. Patient 18:02:00 LINOLEUM LAYER APPRENTICE Jacque Blas MD [facility] CPT-61081 Level 3 Est. Patient 21:41:26 LINOLEUM LAYER APPRENTICE Jacque Blas MD [facility] CPT-68091 Level 4 Est. Patient 14:43:47 LINOLEUM LAYER APPRENTICE Jacque Blas MD [facility] CPT-69676 Level 3 Est. Patient 20:16:54 LINOLEUM LAYER APPRENTICE Jacque Blas MD [facility] CPT-47703 Level 3 Est. Patient 13:31:37 CDT Jacque Blas MD [facility] CPT-20886 Level 3 New Patient 18:16:07 CDT Jacque Blas MD [facility] Procedures Code Procedure Name Date Entry Date Standard Description CPT-92920 Fluzone Quadrivalent Intramuscular Suspension 0.5 ML 16: 31:47 LINOLEUM LAYER APPRENTICE CPT-02785 Immunization Single Admin 16:31:47 LINOLEUM LAYER APPRENTICE CPT-67060 Immunization Single Admin 13:26:18 LINOLEUM LAYER APPRENTICE CPT-73903 Fluzone Intramuscular Injectable 13:26:18 LINOLEUM LAYER APPRENTICE CPT-18722 Fluzone Thim Free 36mo and older 12:03:33 LINOLEUM LAYER APPRENTICE CPT-91690 UHCG (floor use only) 11:49:41 LINOLEUM LAYER APPRENTICE CPT-OV Office Visit 11:49:41 LINOLEUM LAYER APPRENTICE CPT-80207 LS spine comp w obliq 15:53:02 LINOLEUM LAYER APPRENTICE CPT-35076 C-Spine Min 4V 15:53:02 LINOLEUM LAYER APPRENTICE CPT-54622 UHCG (floor use only) 14:15:45 CDT CPT-44613 UHCG (floor use only) 14:09:15 CDT CPT-J7302 Mirena IUD 13:30:58 CDT CPT-37463 Insertion of IUD 13:30:58 CDT CPT-OV Office Visit 13:30:58 CDT CPT-13183 Visit 10:48:09 CDT CPT-05142 Visit 15:34:57 CDT CPT-26503 Visit 15:25:55 CDT CPT-55602 Visit 13:58:45 CDT CPT-00339 Sono OB comp > 14 weeks 16:57:22 CDT CPT-LR Lesion Removal 09:33:27 CDT CPT-03477 Visit 12:50:42 CDT CPT-65504 Visit 18:34:25 CDT CPT-000 Give Appropriate Tetanus Booster 09:16:14 CDT CPT-66493 Administration single or combination vaccine inc oral 11 :36:32 CDT CPT-19345 Tdap 11:36:32 CDT CPT-71456 Visit 09:16:14 CDT CPT-20633 Visit 13:35:24 CDT CPT-86656 Sono OB comp > 14 weeks 11:46:07 CDT CPT-36566 Visit 17:08:15 CDT CPT-68310 Sono OB comp <14 weeks 15:47:19 LINOLEUM LAYER APPRENTICE CPT-55703 Visit 13:28:37 CDT CPT-98916 Spec Collection and Handling Fee 12:41:37 CDT CPT-32682 Visit 12:41:07 CDT CPT-58910 Visit 18:48:53 CDT CPT-81905 Visit 16:25:17 CDT CPT-63563 Sono OB comp > 14 weeks 11:38:18 CDT CPT-42739 Visit 13:36:17 CDT CPT-44279 Visit 13:48:22 CDT
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
--- OUTSIDE RECORDS SUMMARY | 2017-11-07 09:20 | XMS REPORT | Clinical Summary ---
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 Inactive Jacque Blas MD PhD UTERINE SIZE DATE DISCREPANCY ANTPRTM COND/COMPL ICD-649.63 05/05 Inactive Jacque Blas MD PhD DEPRESSION ICD-648.40 Inactive Jacque Blas MD PhD CONSTIPATION ICD-564.00 Inactive Jacqeu Blas MD PhD SUPRAPUBIC PAIN ICD-789.09 Inactive [...] Generic Name NDC Status Provider Patient Instruction PHENTERMINE HCL 37.5 MG TABS 1/2 qAM, can increase to 1 qAM - take 30 min before or 2 hrs after breakfast, for weight loss PHENTERMINE HCL 26699098301 Active Jacque Blas MD PhD Active HYDROXYZINE HCL 25 MG TABS 1/2 - 1 pill by mouth four times daily , if neeed for nerves HYDROXYZINE HCL 73522554293 Active Jacque Blas MD PhD Active METHOCARBAMOL 500 MG ORAL TABS 1 pill by mouth up to four times daily if needed for muscle spasm/pain METHOCARBAMOL 86762936495 No Longer Active Jacque Blas MD PhD Active SEROQUEL 200 MG ORAL TABS take 1 tab daily QUETIAPINE FUMARATE 24463214734 No Longer Active Jacque Blas MD PhD Active NICODERM CQ 14 MG/24HR PT24 1 patch daily x 2 weeks, then decrease to 7's - for smoking cessation NICOTINE 47710016875 No Longer Active Jacque Blas MD PhD Active NICODERM CQ 7 MG/24HR PT24 1 patch daily x 2 weeks - for smoking cessation NICOTINE 95106345582 No Longer Active Jacque Blas MD PhD Active CIPRO 500 MG TAB 1 tablet by mouth twice daily CIPROFLOXACIN HCL 27616611352 No Longer Active Jacque Blas MD PhD Active CYCLOBENZAPRINE HCL 10 MG TABS 1/2 to 1 tablet by mouth q hs, prn CYCLOBENZAPRINE HCL 02792563100 Active Eva Alejo APRN Active MEDROL (DIAN) 4 MG TABS 6 pills x 1 day, then 5 pills x 1 day then 4 pills x 1 day, then 3 pills x 1 day, then 2 pills x 1 day, then 1 pill x 1 day, then stop [facility] 93662429950 No Longer Active Eva Alejo APRN Active CYCLOBENZAPRINE HCL 10 MG TABS 1/2 - 1 tab by mouth three times daily if needed for spasms/pain CYCLOBENZAPRINE HCL 59588825984 No Longer Active Eva Alejo APRN Active FLAGYL 500 MG ORAL TABS four tabs PO x 1 METRONIDAZOLE 76516526749 No Longer Active Jacque Blas MD PhD Active BACTRIM DS 800-160 MG ORAL TABS one tab PO BID x 3 days SULFAMETHOXAZOLE-TRIMETHOPRIM 15876382894 No Longer Active Chloe Wagner MD Active LAMICTAL 25 MG TABS 1 pill by mouth daily x 2 weeks, then 2 pills daily 07/26 LAMOTRIGINE 24097024545 No Longer Active Jacque Blas MD PhD Active LATUDA 40 MG TABS Take one by mouth daily LURASIDONE HCL 76199556970 Active Jacque Blas MD PhD Active HYDROCODONE-ACETAMINOPHEN 7.5-325 MG TABS 1 four times a day as needed for pain HYDROCODONE-ACETAMINOPHEN 08664268749 No Longer Active Jacque Blas MD PhD Active ROBAXIN 500 MG TAB 1-2 pills up to four times daily if needed for muscle spasms METHOCARBAMOL 53918551364 No Longer Active Jacque Blas MD PhD Active CITALOPRAM HYDROBROMIDE 10 MG TABS 1 pill daily, for depression/anxiety 02/09 CITALOPRAM HYDROBROMIDE 03312228656 No Longer Active Jacque Blas MD PhD Active HYDROCODONE-ACETAMINOPHEN 5-325 MG TABS 1 pill three times daily as needed for pain HYDROCODONE-ACETAMINOPHEN 65806748580 No Longer Active Jacque Blas MD PhD Active IBUPROFEN 600 MG TAB 1 pill four times daily, with food IBUPROFEN 77470563756 Active Jacque Blas MD PhD Active TRAMADOL HCL 50 MG TABS 1-2 tablets every 6 hours as needed for pain TRAMADOL HCL 83192178006 No Longer Active Jacque Blas MD PhD Active TYLENOL EXTRA STRENGTH 500 MG TABS 2 @ HS ACETAMINOPHEN 08941971955 No Longer Active Jacque Blas MD PhD Active SERTRALINE HCL 50 MG TABS 1 daily for depression SERTRALINE HCL 82914760750 No Longer Active Jacque Blas MD PhD Active BACTRIM DS 800-160 MG TAB 1 tab by mouth twice daily TRIMETHOPRIM-SULFAMETHOXAZOLE 89501094376 No Longer Active Eva Alejo APRN Active FLINSClip Interactive GUMMIES OMEGA-3 DHA CHEW Take one by mouth daily PEDIATRIC MULTIPLE VIT-C-FA 03716167288 No Longer Active Jacque Blas MD PhD Active RANITIDINE HCL 150 MG CAPS 1 twice a day RANITIDINE HCL 00067304996 No Longer Active Jacque Blas MD PhD Active PNV-OMEGA 28-0.6-0.4-340 MG CAPS 1 pill by mouth daily PRENAT W/O [id number]-OMEGA 99669222710 No Longer Active Jacque Blas MD PhD Active BACTRIM DS 800-160 MG TAB 1 tab by mouth twice daily TRIMETHOPRIM-SULFAMETHOXAZOLE 36319060170 No Longer Active Jacque Blas MD PhD Active METRONIDAZOLE 250 MG TABS 1 TID METRONIDAZOLE 84618755672 No Longer Active Jacque Blas MD PhD Active TRI-SPRINTEC 0.18/0.215/0.25 MG-35 MCG TABS 1 PO q Day NORGESTIM-ETH ESTRAD TRIPHASIC 72259894006 No Longer Active Jacque Blas MD PhD Active ALPRAZOLAM 0.25 MG TABS 1/2 tab to 1 tab PO TID PRN ALPRAZOLAM 65908279040 No Longer Active Jacque Blas MD PhD Active FLUOXETINE HCL 10 MG CAPS 2 PO q AM FLUOXETINE HCL 48931493310 No Longer Active Jacque Blas MD PhD Active ALPRAZOLAM 0.25 MG TABS 1/2 tab to 1 tab PO TID PRN ALPRAZOLAM 0.25 MG TABS 848103 ALPRAZOLAM Inactive TRI-SPRINTEC 0.18/0.215/0.25 MG-35 MCG TABS 1 PO q Day TRI-SPRINTEC 0.18/0.215/0.25 MG-35 MCG TABS 952803 NORGESTIM-ETH ESTRAD TRIPHASIC Inactive PNV-OMEGA 28-0.6-0.4-340 MG CAPS 1 pill by mouth daily PNV-OMEGA 28-0.6-0.4-340 MG CAPS PRENAT W/O [id number] Inactive RANITIDINE HCL 150 MG CAPS 1 twice a day RANITIDINE HCL 150 MG CAPS 076667 RANITIDINE HCL Inactive FLINSTONES GUMMIES OMEGA-3 DHA CHEW Take one by mouth daily FLINSTONES GUMMIES OMEGA-3 DHA CHEW PEDIATRIC MULTIPLE VIT-C-FA Inactive SERTRALINE HCL 50 MG TABS 1 daily for depression SERTRALINE HCL 50 MG TABS 851987 SERTRALINE HCL Inactive TYLENOL EXTRA STRENGTH 500 MG TABS 2 @ HS TYLENOL EXTRA STRENGTH 500 MG TABS 350666 ACETAMINOPHEN Inactive TRAMADOL HCL 50 MG TABS 1-2 tablets every 6 hours as needed for pain TRAMADOL HCL 50 MG TABS 212035 TRAMADOL HCL Inactive HYDROCODONE-ACETAMINOPHEN 5-325 MG TABS 1 pill three times daily as needed for pain HYDROCODONE-ACETAMINOPHEN 5-325 MG TABS 256927 HYDROCODONE-ACETAMINOPHEN Inactive CITALOPRAM HYDROBROMIDE 10 MG TABS 1 pill daily, for depression/anxiety 02/09 CITALOPRAM HYDROBROMIDE 10 MG TABS 489676 CITALOPRAM HYDROBROMIDE Inactive ROBAXIN 500 MG TAB 1-2 pills up to four times daily if needed for muscle spasms ROBAXIN 500 MG TAB 827955 METHOCARBAMOL Inactive HYDROCODONE-ACETAMINOPHEN 7.5-325 MG TABS 1 four times a day as needed for pain HYDROCODONE-ACETAMINOPHEN 7.5-325 MG TABS 977754 HYDROCODONE-ACETAMINOPHEN Inactive LAMICTAL 25 MG TABS 1 pill by mouth daily x 2 weeks, then 2 pills daily 07/26 LAMICTAL 25 MG TABS 568903 LAMOTRIGINE Inactive FLAGYL 500 MG ORAL TABS four tabs PO x 1 FLAGYL 500 MG ORAL TABS 304494 METRONIDAZOLE Inactive CYCLOBENZAPRINE HCL 10 MG TABS 1/2 - 1 tab by mouth three times daily if needed for spasms/pain CYCLOBENZAPRINE HCL 10 MG TABS 780921 CYCLOBENZAPRINE HCL Inactive CIPRO 500 MG TAB 1 tablet by mouth twice daily CIPRO 500 MG TAB 948583 CIPROFLOXACIN HCL Inactive NICODERM CQ 7 MG/24HR [...] tab daily SEROQUEL 200 MG ORAL TABS 172975 QUETIAPINE FUMARATE Inactive METHOCARBAMOL 500 MG ORAL TABS 1 pill by mouth up to four times daily if needed for muscle spasm/pain METHOCARBAMOL 500 MG ORAL TABS 921005 METHOCARBAMOL Inactive FLUOXETINE HCL 10 MG CAPS 2 PO q AM FLUOXETINE HCL 10 MG CAPS 700048 FLUOXETINE HCL Inactive METRONIDAZOLE 250 MG TABS 1 TID METRONIDAZOLE 250 MG TABS 830996 METRONIDAZOLE Inactive BACTRIM DS 800-160 MG TAB [...] reduced Diphtheria, and acellular Pertussis Immunization) Adacel [FER055] tetanus toxoid, reduced diphtheria toxoid, and acellular [...] Value Unit Range Description Lab Report: Chlamydia/GC APTIMA/16936 - Lab chlamydia DNA probe NOT DETECTED NOT DETECTED chlamydia DNA probe NOT DETECTED NOT DETECTED chlamydia DNA probe NOT DETECTED NOT DETECTED chlamydia DNA probe NOT DETECTED NOT DETECTED Lab Report: Chlamydia/GC APTIMA/46263 - Microbiology Neisseria gonorrhoeae DNA probe NOT DETECTED NOT DETECTED Neisseria gonorrhoeae DNA probe NOT DETECTED NOT DETECTED Neisseria gonorrhoeae DNA probe NOT DETECTED NOT DETECTED Neisseria gonorrhoeae DNA probe NOT DETECTED NOT DETECTED Lab Report: Chlamydia/GC APTIMA/19696, Drug Abuse Pnl 10-50/04975 - Lab chlamydia DNA probe NOT DETECTED NOT DETECTED Lab Report: Chlamydia/GC APTIMA/34136, Drug Abuse Pnl 10-50/08849 - Microbiology Neisseria gonorrhoeae DNA probe NOT DETECTED NOT DETECTED Lab Report: CKI, Erythrocyte Sed Rate - Chemistry creatine kinase, serum 63 U/L 26-192 Lab Report: HEPATITIS B S AG W/, HIV-1/HIV-2 AB SCREEN W REFL/, RPR ... - Chemistry hepatitis B surface antigen NON-REACTIVE NON-REACTIVE Lab Report: HEPATITIS B S AG W/, HIV-1/HIV-2 AB SCREEN W REFL/, RPR ... - Serology rapid plasma reagin antibody titer NON-REACTIVE NON-REACTIVE Lab Report: Wet Prep, UADIP W/MICRO, AUTO [...] urine, semiquantitative 7.0 5.0-8.5 Office Visit: preethi hudson - Chemistry human chorionic gonadotropin, urine, qualitative (urine test) Negative Encounters Code Encounter Date Provider Facility [facility]-[id number] Level 3 Est. Patient 12:37:07 CDT Jacque Blas MD [facility]-[id number] Level 3 Est. Patient 20:19:50 ROLL ICER MACHINE Jacque Blas MD [facility]-[id number] Level 4 Est. Patient 17:32:49 ROLL ICER MACHINE Jacque Blas MD [facility]-[id number] Level 3 Est. Patient 14:38:20 CDT Jacque Blas MD [facility]-[id number] Level 4 Est. Patient 20:19:14 CDT Jacque Blas MD [facility]-[id number] Level 3 Est. Patient 15:41:32 CDT Jacque Blas MD [facility]-23055 Level 3 Est. Patient 18:02:00 ROLL ICER MACHINE Jacque Blas MD [facility] CPT-50987 Level 3 Est. Patient 21:41:26 KAMRON Blas MD [facility]-56208 Level 4 Est. Patient 14:43:47 ROLL ICER MACHINE Jacque Blas MD [facility] CPT-84697 Level 3 Est. Patient 20:16:54 KAMRON Blas MD [facility]-[id number] Level 3 Est. Patient 13:31:37 CDT Jacque Blas MD [facility] CPT-97142 Level 3 New Patient 18:16:07 CDT Jacque Blas MD [facility] Procedures Code Procedure Name Date Entry Date Standard Description CPT-90549 Fluzone Quadrivalent Intramuscular Suspension 0.5 ML 16: 31:47 ROLL ICER MACHINE CPT-50300 Immunization Single Admin 16:31:47 ROLL ICER MACHINE CPT-54472 Immunization Single Admin 13:26:18 ROLL ICER MACHINE CPT-65451 Fluzone Intramuscular Injectable 13:26:18 ROLL ICER MACHINE CPT-62333 Fluzone Thim Free 36mo and older 12:03:33 ROLL ICER MACHINE CPT-85689 UHCG (floor use only) 11:49:41 ROLL ICER MACHINE CPT-OV Office Visit 11:49:41 ROLL ICER MACHINE CPT-10401 LS spine comp w obliq 15:53:02 ROLL ICER MACHINE CPT-87064 C-Spine Min 4V 15:53:02 ROLL ICER MACHINE CPT-62683 UHCG (floor use only) 14:15:45 CDT CPT-78016 UHCG (floor use only) 14:09:15 CDT CPT-J7302 Mirena IUD 13:30:58 CDT CPT-48898 Insertion of IUD 13:30:58 CDT CPT-OV Office Visit 13:30:58 CDT CPT-86674 Visit 10:48:09 CDT CPT-65325 Visit 15:34:57 CDT CPT-64731 Visit 15:25:55 CDT CPT-34062 Visit 13:58:45 CDT CPT-87376 Sono OB comp > 14 weeks 16:57:22 CDT CPT-LR Lesion Removal 09:33:27 CDT CPT-61545 Visit 12:50:42 CDT CPT-26197 Visit 18:34:25 CDT CPT-000 Give Appropriate Tetanus Booster 09:16:14 CDT CPT-77224 Administration single or combination vaccine inc oral 11 :36:32 CDT CPT-90638 Tdap 11:36:32 CDT CPT-87883 Visit 09:16:14 CDT CPT-44898 Visit 13:35:24 CDT CPT-27603 Sono OB comp > 14 weeks 11:46:07 CDT CPT-30591 Visit 17:08:15 CDT CPT-06071 Sono OB comp <14 weeks 15:47:19 ROLL ICER MACHINE CPT-45085 Visit 13:28:37 CDT CPT-80517 Spec Collection and Handling Fee 12:41:37 CDT CPT-12198 Visit 12:41:07 CDT CPT-81908 Visit 18:48:53 CDT CPT-53969 Visit 16:25:17 CDT CPT-93434 Sono OB comp > 14 weeks 11:38:18 CDT CPT-11235 Visit 13:36:17 CDT CPT-04175 Visit 13:48:22 CDT
== END 2017-11-06 11:26 | disposition home or self-care (01) ==
LOC: EDUNIT# 08:31 → ER 08:37
DX: M54.5 Low back pain (principal); G89.29 Other chronic pain; G43.909 Migraine, unspecified, not intractable, without status migrainosus; F41.9 Anxiety disorder, unspecified; F20.9 Schizophrenia, unspecified; F32.9 Major depressive disorder, single episode, unspecified; F17.200 Nicotine dependence, unspecified, uncomplicated; Z90.89 Acquired absence of other organs
CPT/HCPCS: 96374; 96375

== ENCOUNTER 2019-01-13 19:10 | Emergency (ER) | payer MEDICAID ==
[~2019-01-13 19:10] MED LIST: ACHD5005 PO; BUSP15TA60; CEPH500T PO; FLUO20CA25
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
--- OUTSIDE RECORDS SUMMARY | 2019-01-13 20:03 | XMS REPORT ---
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 17364275 Problem Acute stress reaction F43.0 Active 22953913 Problem Panic disorder [episodic paroxysmal anxiety] without agoraphobia F41.0 Active 37789392 Problem Severe major depression with psychotic features F32.3 Active 02987655 Problem Chronic post-traumatic headache, not intractable G44.329 Active 056350302 Problem Carpal tunnel syndrome on both sides G56.03 Active 58100939338008905 Problem Memory loss R41.3 Active 747921416 Problem Cannabis abuse F12.10 Active 57168392 Problem Obsessive compulsive disorder F42.9 Active 963515708 Problem Cigarette smoker motivated to quit F17.200 Active 56679274 ALLERGIES No Information ENCOUNTERS Encounter Location Date Diagnosis [facility] [address] [address] Nov, [facility] [address] [address] Oct, [facility] [id number] [place] [address] 01859- 2972 Oct, [facility] [address] [address] Sep, [facility] [id number] [place] [address] 93827- 9508 Sep, Chronic post-traumatic stress disorder (PTSD) F43.12 ; Obsessive compulsive disorder F42.9 ; Schizoaffective disorder, bipolar type F25.0 and Cannabis abuse F12.10 [facility] [id number] [place] [address] 62323- 5156 Sep, [facility] [id number] [place] [address] 62316- 6607 Sep, Schizoaffective disorder, bipolar type F25.0 ; Chronic post- traumatic stress disorder (PTSD) F43.12 ; Obsessive compulsive disorder F42.9 and Cannabis abuse F12.10 [facility] [address] [address] 16 Sep, 2018 Carpal tunnel syndrome on both sides G56.03 ; Chronic post- traumatic headache, not intractable G44.329 and Vision blurring H53.8 [facility] [address] [address]- [address] Sep, Chronic post-traumatic stress disorder (PTSD) F43.12 ; Obsessive compulsive disorder F42.9 ; Schizoaffective disorder, bipolar type F25.0 and Cannabis abuse F12.10 [facility] [id number] [place] [address] 57175- 0112 Aug, Chronic post-traumatic stress disorder (PTSD) F43.12 ; Schizoaffective disorder, bipolar type F25.0 and Cannabis abuse F12.10 [facility] [id number] [place] [address] 87425- 3753 Aug, Generalized joint pain M25.50 ; Chronic nonintractable headache, unspecified headache type R51 ; History of head injury Z87.828 and Vision changes H53.9 [facility] [address] [address]- 6099 09 Aug, 2018 Chronic post-traumatic stress disorder (PTSD) F43.12 ; Schizoaffective disorder, bipolar type F25.0 and Cannabis abuse F12.10 [facility] [address] [address]20- 9[address] 04 Aug, 2018 [facility] [id number] [place] [address] 23962- 2102 02 Aug, 2018 Well woman exam with routine gynecological exam Z01.419 and Encounter for immunization Z23 [facility] [id number] [place] [address] 22820- 7108 19 Jul, 2018 Chronic post-traumatic stress disorder (PTSD) F43.12 ; Schizoaffective disorder, bipolar type F25.0 and Cannabis abuse F12.10 [facility] [id number] [place] [address] 02372- 7243 17 Jul, 2018 [facility] [address] 39644- 8972 17 Jul, 2018 [facility] [id number] [place] [address] 63107- 8290 17 Jul, 2018 Hypoglycemia E16.2 ; Frequent headaches R51 and Dietary deficiency E63.9 [facility] [id number] [place] [address] 67767- 5663 14 Jul, 2018 [facility] [address] 99418- 3106 14 Jul, 2018 Cigarette smoker motivated to quit F17.200 [facility] [id number] [place] [address] 48915- 6921 Jun, Dizziness R42 ; Memory loss R41.3 ; Hx of multiple concussions Z87.820 ; Syncope, unspecified syncope type R55 and Frequent headaches R51 [facility] [id number] [place] [address] 82167- 2052 Jun, [facility] [id number] [place] [address] [id number] Jun, Dental caries K02.9 [facility] [id number] [place] [address] 63282- 0625 May, Chronic post-traumatic stress disorder (PTSD) F43.12 ; Schizoaffective disorder, bipolar type F25.0 and Cannabis abuse F12.10 [facility] [address] [place] [address] 44333- 1794 March, Chronic post-traumatic stress disorder (PTSD) F43.12 ; Schizoaffective disorder, bipolar type F25.0 and Cannabis abuse F12.10 [facility] [id number] [place] [address] 83539- 4152 Feb, Memory loss R41.3 and 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 [facility] [id number] [place] [address] 50279 -0694 Feb, Left foot pain M79.672 [facility] [address] [address]- 4256 Feb, Chronic post-traumatic stress disorder (PTSD) F43.12 ; Schizoaffective disorder, bipolar type F25.0 and Cannabis abuse F12.10 [facility] [id number] [place] [address] 28390- 9431 Jan, Anxiety F41.9 ; Mild episode of recurrent major depressive disorder F33.0 and Post traumatic stress disorder (PTSD) F43.10 [facility] [id number] [place] [address] 46212- 7672 Jan, Chronic post-traumatic stress disorder (PTSD) F43.12 ; Schizoaffective disorder, bipolar type F25.0 and Cannabis abuse F12.10 [facility] [id number] [place] [address] 84086- 9503 Jan, control counseling Z30.09 and Obesity (BMI 30.0-34.9) E66.9 [facility] [id number] [place] [address] [phone] 13 Jan, 2018 Dental examination Z01.20 [facility] [id number] [place] [address] 04732- 5582 Dec, Chronic post-traumatic stress disorder (PTSD) F43.12 ; Schizoaffective disorder, bipolar type F25.0 and Cannabis abuse F12.10 [facility] [address] [id number] 09 Dec, 2017 Dental examination Z01.20 [facility] [id number] [place] [address] 53713- 8952 08 Dec, 2017 Chronic post-traumatic stress disorder (PTSD) F43.12 ; Schizoaffective disorder, bipolar type F25.0 and Cannabis abuse F12.10 [facility] [address] [place] [address] 97151- 9321 Nov, Anxiety F41.9 ; Mild episode of recurrent major depressive disorder F33.0 and Post traumatic stress disorder (PTSD) F43.10 [facility] [id number] [place] [address] 26396- 9146 Nov, Chronic post-traumatic stress disorder (PTSD) F43.12 ; Schizoaffective disorder, bipolar type F25.0 and Cannabis abuse F12.10 [facility] [id number] [place] [address] 75757- 9834 Nov, Schizoaffective disorder, bipolar type F25.0 [facility] [address] [place] [address] [phone] Nov, Dental examination Z01.20 [facility] [address] [place] [address] 51186- 4862 Nov, [facility] [id number] [place] [address] 61501- 9564 Nov, Anxiety F41.9 [facility] [address] [place] [address] 83910- 8875 Nov, Chronic post-traumatic stress disorder (PTSD) F43.12 ; Schizoaffective disorder, bipolar type F25.0 and Cannabis abuse F12.10 [facility] [id number] [address] Oct, [facility] [id number] [place] [address] 79615- 8529 Oct, Chronic post-traumatic stress disorder (PTSD) F43.12 ; Schizoaffective disorder, bipolar type F25.0 and Cannabis abuse F12.10 [facility] [address] [place] [address] 33277- 7188 Oct, [facility] [id number] [place] [address] 62813- 9370 Oct, [facility] [id number] [place] [address] 28569- 6702 Oct, Chronic post-traumatic stress disorder (PTSD) F43.12 ; Schizoaffective disorder, bipolar type F25.0 and Cannabis abuse F12.10 [facility] [id number] [place] [address] 34084- 0406 Sep, Encounter for immunization Z23 ; Obesity (BMI 30-39.9) E66.9 and Acute bilateral low back pain without sciatica M54.5 [facility] [id number] [place] [address] 15324- 4367 Sep, Routine gynecological examination Z01.419 ; control counseling Z30.09 ; Routine screening for STI (sexually transmitted infection) Z11.3 and Folliculitis L73.[address] [place] [address] 20322- 4990 Sep, Chronic post-traumatic stress disorder (PTSD) F43.12 ; Schizoaffective disorder, bipolar type F25.0 and Cannabis abuse F12.10 [facility] [address] [place] [address] 91667- 7362 Sep, Chronic post-traumatic stress disorder (PTSD) F43.12 ; Schizoaffective disorder, bipolar type F25.0 and Cannabis abuse F12.10 [facility] [address] [place] [address] 46318- 4322 Aug, Chronic post-traumatic stress disorder (PTSD) F43.12 ; Schizoaffective disorder, bipolar type F25.0 and Cannabis abuse F12.10 [facility] [address] [address]- [address] 11 Aug, 2017 Chronic post-traumatic stress disorder (PTSD) F43.12 ; Anxiety F41.9 ; 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 and Schizoaffective disorder, bipolar type F25.0 [facility] [address] [id number] 14 Jul, 2017 Encounter for dental examination Z01.20 [facility] [id number] [place] [address] 93982- 4593 07 Jul, 2017 Chronic post-traumatic stress disorder (PTSD) F43.12 ; Schizoaffective disorder, bipolar type F25.0 and Cannabis abuse F12.10 [facility] [address] [place] [address] 89005- 7058 Jul, [facility] [id number] [place] [address] 87158- 8878 Jul, Chronic post-traumatic stress disorder (PTSD) F43.12 ; Anxiety F41.9 ; 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 and Schizoaffective disorder, bipolar type F25.0 [facility] [address] [place] [address] 11853- 4471 Jun, Chronic post-traumatic stress disorder (PTSD) F43.12 ; Schizoaffective disorder, bipolar type F25.0 and Cannabis abuse F12.10 [facility] [address] [address]- [address] Jun, [facility] [id number] [place] [address] 38530- 3402 Jun, Chronic post-traumatic stress disorder (PTSD) F43.12 ; Anxiety F41.9 and 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 [facility] [address] [place] [address] [phone] Jun, Dental examination Z01.20 [facility] [address] [address]- 8777 May, Chronic post-traumatic stress disorder (PTSD) F43.12 ; Schizoaffective disorder, bipolar type F25.0 and Cannabis abuse F12.10 [facility] [address] [place] [address] May, Chronic post-traumatic stress disorder (PTSD) F43.12 ; Schizoaffective disorder, bipolar type F25.0 and Cannabis abuse F12.10 [facility] [id number] [place] [address] [phone] May, Dental caries K02.9 [facility] [id number] [place] [address] [phone] Apr, Dental examination Z01.20 [facility] [id number] [place] [address] 64716- 0022 March, Chronic post-traumatic stress disorder (PTSD) F43.12 ; Schizoaffective disorder, bipolar type F25.0 and Cannabis abuse F12.10 [facility] [id number] [place] [address] 15314- 1294 Feb, [facility] [id number] [place] [address] 46648- 7787 Feb, [facility] [id number] [place] [address] 30896- 0579 Feb, Anxiety F41.9 [facility] [id number] [place] [address] 16298- 0886 Feb, Severe major depression with psychotic features F32.3 ; Panic disorder [episodic paroxysmal anxiety] without agoraphobia F41.0 ; Acute stress reaction F43.0 ; Anxiety F41.9 ; Schizoaffective disorder, bipolar type F25.0 ; Chronic post-traumatic stress disorder (PTSD) F43.12 ; Obesity due to excess calories, unspecified obesity severity E66.09 and Screening cholesterol level Z13.220 [facility] [id number] [place] [address] 20318- 2077 Feb, Schizoaffective disorder, bipolar type F25.0 [facility] [address] [address]- 0099 Feb, [facility] [id number] [place] [address] 22509- 4131 Feb, Schizoaffective disorder, bipolar type F25.0 ; Chronic post- traumatic stress disorder (PTSD) F43.12 ; 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 and Cannabis abuse F12.10 [facility] [id number] [place] [address] 98585- 7332 Jan, Anxiety F41.9 ; Acute stress reaction F43.0 ; Severe major depression with psychotic features F32.3 and Panic disorder [episodic paroxysmal anxiety] without agoraphobia F41.0 [facility] [address] [place] [address] 34905- 2234 Jan, Severe major depression with psychotic features F32.3 ; Acute stress reaction F43.0 ; Anxiety F41.9 and Panic disorder [episodic paroxysmal anxiety] without agoraphobia F41.0 [facility] [address] [place] [address] 69785- 2387 Jan, Withdrawal from other psychoactive substance F19.939 and Severe major depression with psychotic features F32.3 [facility] [address] [place] [address] 88036- 1765 Jan, Severe major depression with psychotic features F32.3 ; Acute stress reaction F43.0 and Panic disorder [episodic paroxysmal anxiety] without agoraphobia F41.0 [facility] [address] [place] [address] 28 Jul, 2016 Withdrawal from other psychoactive substance F19.939 and Bilateral low back pain without sciatica, unspecified chronicity M54.5 [facility] [address] [place] [address] 14 Jul, 2016 High risk sexual behavior Z72.51 ; Well woman exam Z01.419 ; Dyspareunia in female N94.1 and Encounter for IUD removal Z30.432 [id number] [place] [address]497 Feb, [facility] [address] [facility] [id number] Feb, [facility] [address] [facility] [id number] [address] 1546 Oct, [facility] [address] [facility] [id number] [address] 8028 Oct, IMMUNIZATIONS No Known Immunizations SOCIAL HISTORY Never Assessed REASON FOR VISIT Eye Exam PLAN OF CARE VITAL SIGNS MEDICATIONS Unknown [...]
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
--- OUTSIDE RECORDS SUMMARY | 2019-01-13 20:03 | XMS REPORT ---
Author Author EVE CAMEJO 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 76561606 Problem Acute stress reaction F43.0 Active 50076818 Problem Panic disorder [episodic paroxysmal anxiety] without agoraphobia F41.0 Active 75366081 Problem Severe major depression with psychotic features F32.3 Active 71131970 Problem Chronic post-traumatic headache, not intractable G44.329 Active 313799963 Problem Carpal tunnel syndrome on both sides G56.03 Active [id number] Problem Memory loss R41.3 Active 210656039 Problem Cannabis abuse F12.10 Active 32934545 Problem Obsessive compulsive disorder F42.9 Active 404983474 Problem Cigarette smoker motivated to quit F17.200 Active 99022668 ALLERGIES No Known Allergies ENCOUNTERS Encounter Location Date Diagnosis [facility] [place] [id number] [place] [address] 38599- 3598 Oct, [facility] [place] [address] [place] [address] 56182- 7062 Sep, [facility] [place] [id number] [place] [address] 68577- 7413 Sep, [facility] [place] [id number] [place] [address] 62745- 6712 Sep, [facility] [place] [id number] [place] [address] 48854- 5360 16 Sep, 2018 Carpal tunnel syndrome on both sides G56.03 ; Chronic post- traumatic headache, not intractable G44.329 and Vision blurring H53.8 [place] [id number] [place] [address] 18862- 0822 14 Sep, 2018 Chronic post-traumatic stress disorder (PTSD) F43.12 ; Obsessive compulsive disorder F42.9 ; Schizoaffective disorder, bipolar type F25.0 and Cannabis abuse F12.10 [place] [address] 39488- 6263 Aug, Chronic post-traumatic stress disorder (PTSD) F43.12 ; Schizoaffective disorder, bipolar type F25.0 and Cannabis abuse F12.10 [place] [id number] [place] [address] 36613- 7555 Aug, Generalized joint pain M25.50 ; Chronic nonintractable headache, unspecified headache type R51 ; History of head injury Z87.828 and Vision changes H53.9 [place] [id number] [place] [address] 22422- 2929 09 Aug, 2018 Chronic post-traumatic stress disorder (PTSD) F43.12 ; Schizoaffective disorder, bipolar type F25.0 and Cannabis abuse F12.10 [place] [id number] [place] [address] 81940- 1666 Aug, [facility] [id number] [place] [address] 97032- 9936 Aug, Well woman exam with routine gynecological exam Z01.419 and Encounter for immunization Z23 [place] [id number] [place] [address] 50724- 7495 Jul, Chronic post-traumatic stress disorder (PTSD) F43.12 ; Schizoaffective disorder, bipolar type F25.0 and Cannabis abuse F12.10 [place] [id number] [place] [address] 93632- 9378 Jul, [place] [address] 73718- 3561 17 Jul, 2018 [facility] [place] [id number] [place] [address] 89208- 1563 17 Jul, 2018 Hypoglycemia E16.2 ; Frequent headaches R51 and Dietary deficiency E63.9 [facility] [place] [id number] [place] [address] 71448- 2855 14 Jul, 2018 [facility] [place] [address] 54261- 2429 14 Jul, 2018 Cigarette smoker motivated to quit F17.200 [facility] [place] [address] 16882- 8228 Jun, Dizziness R42 ; Memory loss R41.3 ; Hx of multiple concussions Z87.820 ; Syncope, unspecified syncope type R55 and Frequent headaches R51 [place] [address] 94372- 0163 Jun, [facility] [address] [id number] Jun, Dental caries K02.9 [facility] [place] [address] 84095- 4082 May, Chronic post-traumatic stress disorder (PTSD) F43.12 ; Schizoaffective disorder, bipolar type F25.0 and Cannabis abuse F12.10 [facility] [place] [id number] [place] [address] 99683- 3170 March, Chronic post-traumatic stress disorder (PTSD) F43.12 ; Schizoaffective disorder, bipolar type F25.0 and Cannabis abuse F12.10 [facility] [place] [id number] [place] [address] 22418- 3180 Feb, Memory loss R41.3 and 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 [id number] [place] [address] 80308 -0542 11 Feb, 2018 Left foot pain M79.672 [facility] [place] [address] [place] [address]- 6195 Feb, Chronic post-traumatic stress disorder (PTSD) F43.12 ; Schizoaffective disorder, bipolar type F25.0 and Cannabis abuse F12.10 [facility] [place] [id number] [place] [address] 77687- 4364 Jan, Anxiety F41.9 ; Mild episode of recurrent major depressive disorder F33.0 and Post traumatic stress disorder (PTSD) F43.10 [facility] [place] [id number] [place] [address] 32642- 1030 Jan, Chronic post-traumatic stress disorder (PTSD) F43.12 ; Schizoaffective disorder, bipolar type F25.0 and Cannabis abuse F12.10 [facility] [place] [id number] [place] [address] 15245- 6229 Jan, control counseling Z30.09 and Obesity (BMI 30.0-34.9) E66.9 [facility] [id number] [place] [address] [phone] Jan, Dental examination Z01.20 [facility] [id number] [place] [address] 14768- 5040 Dec, Chronic post-traumatic stress disorder (PTSD) F43.12 ; Schizoaffective disorder, bipolar type F25.0 and Cannabis abuse F12.10 [facility] [id number] [place] [address] [id number] 09 Dec, 2017 Dental examination Z01.20 [facility] [place] [id number] [place] [address] 47133- 1669 08 Dec, 2017 Chronic post-traumatic stress disorder (PTSD) F43.12 ; Schizoaffective disorder, bipolar type F25.0 and Cannabis abuse F12.10 [facility] [place] [id number] [place] [address] 79969- 7283 Nov, Anxiety F41.9 ; Mild episode of recurrent major depressive disorder F33.0 and Post traumatic stress disorder (PTSD) F43.10 [facility] [place] [address] [place] [address]- 0460 Nov, Chronic post-traumatic stress disorder (PTSD) F43.12 ; Schizoaffective disorder, bipolar type F25.0 and Cannabis abuse F12.10 [facility] [place] [address] [address]- 1327 Nov, Schizoaffective disorder, bipolar type F25.0 [facility] [address] [id number] Nov, Dental examination Z01.20 [facility] [place] [address] [place] [address]- 4089 Nov, [facility] [place] [address] [place] [address] 92328- 7682 Nov, Anxiety F41.9 [facility] [place] [address] [place] [address] 13196- 8434 Nov, Chronic post-traumatic stress disorder (PTSD) F43.12 ; Schizoaffective disorder, bipolar type F25.0 and Cannabis abuse F12.10 [facility] [place] [address] [address]- 0501 Oct, [facility] [place] [address] [address]- 7259 Oct, Chronic post-traumatic stress disorder (PTSD) F43.12 ; Schizoaffective disorder, bipolar type F25.0 and Cannabis abuse F12.10 [facility] [place] [address] [place] [address]- 0299 Oct, [facility] [place] [address] [place] [address]- 9709 Oct, [facility] [place] [id number] [address]- 6459 Oct, Chronic post-traumatic stress disorder (PTSD) F43.12 ; Schizoaffective disorder, bipolar type F25.0 and Cannabis abuse F12.10 [facility] [place] [address] [address]- 2734 29 Sep, 2017 Encounter for immunization Z23 ; Obesity (BMI 30-39.9) E66.9 and Acute bilateral low back pain without sciatica M54.5 [facility] [place] [address] [place] [address]- 9308 Sep, Routine gynecological examination Z01.419 ; control counseling Z30.09 ; Routine screening for STI (sexually transmitted infection) Z11.3 and Folliculitis L73.9 [place] [id number] [place] [address] 72787- 2142 21 Sep, 2017 Chronic post-traumatic stress disorder (PTSD) F43.12 ; Schizoaffective disorder, bipolar type F25.0 and Cannabis abuse F12.10 [place] [address] [place] [address] 34178- 8674 13 Sep, 2017 Chronic post-traumatic stress disorder (PTSD) F43.12 ; Schizoaffective disorder, bipolar type F25.0 and Cannabis abuse F12.10 [place] [address] [place] [address] 74317- 0267 Aug, Chronic post-traumatic stress disorder (PTSD) F43.12 ; Schizoaffective disorder, bipolar type F25.0 and Cannabis abuse F12.10 [place] [address] [address]- 8179 11 Aug, 2017 Chronic post-traumatic stress disorder (PTSD) F43.12 ; Anxiety F41.9 ; 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 and Schizoaffective disorder, bipolar type F25.0 [facility] [address] [id number] 14 Jul, 2017 Encounter for dental examination Z01.20 [facility] [place] [address] [place] [address] 26475- 0990 07 Jul, 2017 Chronic post-traumatic stress disorder (PTSD) F43.12 ; Schizoaffective disorder, bipolar type F25.0 and Cannabis abuse F12.10 [place] [address], [place] [address]- 8887 Jul, [facility] [place] [id number] [place] [address] 41357- 4510 Jul, Chronic post-traumatic stress disorder (PTSD) F43.12 ; Anxiety F41.9 ; 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 and Schizoaffective disorder, bipolar type F25.0 [facility] [place] [id number] [place] [address] 86309- 3188 Jun, Chronic post-traumatic stress disorder (PTSD) F43.12 ; Schizoaffective disorder, bipolar type F25.0 and Cannabis abuse F12.10 [place] [id number] [place] [address] 29798- 9068 Jun, [place] [id number] [place] [address] 79316- 0292 Jun, Chronic post-traumatic stress disorder (PTSD) F43.12 ; Anxiety F41.9 and 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 [facility] [address] [place] [address] [phone] Jun, Dental examination Z01.20 [place] [id number] [place] [address] 66265- 5601 May, Chronic post-traumatic stress disorder (PTSD) F43.12 ; Schizoaffective disorder, bipolar type F25.0 and Cannabis abuse F12.10 [place] [address] [address]- 8258 May, Chronic post-traumatic stress disorder (PTSD) F43.12 ; Schizoaffective disorder, bipolar type F25.0 and Cannabis abuse F12.10 [facility] [id number] [place] [address] [phone] May, Dental caries K02.9 [facility] [address] [place] [address] [phone] Apr, Dental examination Z01.20 [facility] [place] [address] [address]- 0012 March, Chronic post-traumatic stress disorder (PTSD) F43.12 ; Schizoaffective disorder, bipolar type F25.0 and Cannabis abuse F12.10 [place] [address] [address]- 2239 Feb, [place] [id number] [place] [address] 15020- 4068 Feb, [place] [id number] [place] [address] 98711- 8047 Feb, Anxiety F41.9 [place] [id number] [place] [address] 35274- 6029 Feb, Severe major depression with psychotic features F32.3 ; Panic disorder [episodic paroxysmal anxiety] without agoraphobia F41.0 ; Acute stress reaction F43.0 ; Anxiety F41.9 ; Schizoaffective disorder, bipolar type F25.0 ; Chronic post-traumatic stress disorder (PTSD) F43.12 ; Obesity due to excess calories, unspecified obesity severity E66.09 and Screening cholesterol level Z13.220 [place] [id number] [place] [address] 37917- 7076 Feb, Schizoaffective disorder, bipolar type F25.0 [place] [address] [address]- 9162 Feb, [place] [id number] [place] [address] 44248- 5845 Feb, Schizoaffective disorder, bipolar type F25.0 ; Chronic post- traumatic stress disorder (PTSD) F43.12 ; 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 and Cannabis abuse F12.10 [place] [address], [place] [address]- 7460 Jan, Anxiety F41.9 ; Acute stress reaction F43.0 ; Severe major depression with psychotic features F32.3 and Panic disorder [episodic paroxysmal anxiety] without agoraphobia F41.0 [place] [address] [address]- 1623 21 Jan, 2017 Severe major depression with psychotic features F32.3 ; Acute stress reaction F43.0 ; Anxiety F41.9 and Panic disorder [episodic paroxysmal anxiety] without agoraphobia F41.0 [place] [id number] [place] [address] 98195- 4116 14 Jan, 2017 Withdrawal from other psychoactive substance F19.939 and Severe major depression with psychotic features F32.3 [place] [id number] [place] [address] 47412- 8733 10 Jan, 2017 Severe major depression with psychotic features F32.3 ; Acute stress reaction F43.0 and Panic disorder [episodic paroxysmal anxiety] without agoraphobia F41.[address] [facility] [address] [place] [address] 28 Jul, 2016 Withdrawal from other psychoactive substance F19.939 and Bilateral low back pain without sciatica, unspecified chronicity M54.5 [facility] [address] [place] [address] 14 Jul, 2016 High risk sexual behavior Z72.51 ; Well woman exam Z01.419 ; Dyspareunia in female N94.1 and Encounter for IUD removal Z30.432 [place] [id number] [place] [address] 45683- 6224 Feb, [place] [id number] [place] [address] 42505- 1998 Feb, [place] [id number] [place] [address] 09774- 7747 Oct, [place] [id number] [place] [address] 15661- 9348 Oct, IMMUNIZATIONS No Known Immunizations SOCIAL HISTORY Never Assessed REASON FOR VISIT Headache---tcuppettRN, -Continues with headaches and dizziness intermittently PLAN OF CARE Activity Details Follow Up 2 Months Reason:Headache VITAL SIGNS Height 67 in 2018-09-18 Weight 166.8 lbs 2018-09-18 Temperature 98.4 degrees Fahrenheit 2018-09-18 Heart Rate 80 bpm 2018-09-18 Respiratory Rate 18 2018-09-18 BMI 26.12 kg/m2 2018-09-18 Blood pressure systolic 110 mmHg 2018-09-18 Blood pressure diastolic 72 mmHg 2018-09-18 MEDICATIONS Medication Instructions Dosage Frequency Start Date End Date Duration Status Ibuprofen 800 MG Orally daily prn 1 tablet with food or milk as needed Jul, Nov, Active Amitriptyline HCl 50 MG Orally qhs 1 tablet Aug, 30 day(s) Active RESULTS No Results PROCEDURES No Known procedures [...]
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
--- OUTSIDE RECORDS SUMMARY | 2019-01-13 20:04 | XMS REPORT ---
Author Author JARRET SUMMERS [facility] Address [address] [place] [address] Care Team Providers Care Dietetic Intern Name Role Phone KRISOTPHERALISSAJARRET Unavailable PROBLEMS Type Condition ICD9-CM Code [id number] Code Onset Dates Condition Status SNOMED Code Problem Schizoaffective disorder, bipolar type F25.0 Active 13735573 Problem Obesity due to excess calories, unspecified obesity severity E66.09 Active 975738453 Problem Anxiety F41.9 Active 82355006 Problem Hypoglycemia E16.2 Active 102521088 Problem Cigarette smoker motivated to quit F17.200 Active 38221705 Problem Mild episode of recurrent major depressive disorder F33.0 Active 930517316 Problem Post traumatic stress disorder (PTSD) F43.10 Active 34900365 Problem Memory loss R41.3 Active 299556571 Problem Obesity (BMI 30.0-34.9) E66.9 Active 860144829248119 Problem Severe major depression with psychotic features F32.3 Active 01078411 Problem 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 83836656 Problem Acute stress reaction F43.0 Active 68752388 Problem Chronic post-traumatic stress disorder (PTSD) F43.12 Active 122977914 Problem Panic disorder [episodic paroxysmal anxiety] without agoraphobia F41.0 Active 00859480 Problem Cannabis abuse F12.10 Active 56864064 ALLERGIES No Information ENCOUNTERS Encounter Location Date Diagnosis [facility] [address] [facility] [id number] [address] Sep, [facility] [address] [address] 31 Aug, 2018 [facility] [id number], [place] [address] 17 Aug, 2018 [facility] [id number], [place] [address] Aug, Chronic post-traumatic stress disorder (PTSD) F43.12 ; Schizoaffective disorder, bipolar type F25.0 and Cannabis abuse F12.10 [place] [address] [address] Aug, [facility] [address] [address] Aug, Well woman exam with routine gynecological exam Z01.419 and Encounter for immunization Z23 [place] [address] [address] 19 Jul, 2018 Chronic post-traumatic stress disorder (PTSD) F43.12 ; Schizoaffective disorder, bipolar type F25.0 and Cannabis abuse F12.10 [place] [address] [address] Jul, [place] [address] [address] Jul, [facility] [address] [address] Jul, Hypoglycemia E16.2 ; Frequent headaches R51 and Dietary deficiency E63.9 [place] [address] [address] Jul, [place] [address] [address] Jul, Cigarette smoker motivated to quit F17.[address] [address] Jun, Dizziness R42 ; Memory loss R41.3 ; Hx of multiple concussions Z87.820 ; Syncope, unspecified syncope type R55 and Frequent headaches R51 [facility] [id number] [place] [address] Jun, [facility] [address] [id number] Jun, Dental caries K02.9 [facility] [id number] [place] [address] May, Chronic post-traumatic stress disorder (PTSD) F43.12 ; Schizoaffective disorder, bipolar type F25.0 and Cannabis abuse F12.10 [facility] [id number] [place] [address]30- [address] March, Chronic post-traumatic stress disorder (PTSD) F43.12 ; Schizoaffective disorder, bipolar type F25.0 and Cannabis abuse F12.10 [facility] [id number] [place] [address] Feb, Memory loss R41.3 and 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 [facility] [id number] [place] [address] Feb, Left foot pain M79.672 [facility] [address] [address] Feb, Chronic post-traumatic stress disorder (PTSD) F43.12 ; Schizoaffective disorder, bipolar type F25.0 and Cannabis abuse F12.10 [facility] [id number] [place] [address] 14261- 5649 Jan, Anxiety F41.9 ; Mild episode of recurrent major depressive disorder F33.0 and Post traumatic stress disorder (PTSD) F43.10 [facility] [id number] [place] [address]- [address] Jan, Chronic post-traumatic stress disorder (PTSD) F43.12 ; Schizoaffective disorder, bipolar type F25.0 and Cannabis abuse F12.10 [facility] [id number] [place] [address]- [address] Jan, control counseling Z30.09 and Obesity (BMI 30.0-34.9) E66.9 [facility] [id number] [place] [id number] 13 Jan, 2018 Dental examination Z01.20 [facility] [address], [place] [address] 22 Dec, 2017 Chronic post-traumatic stress disorder (PTSD) F43.12 ; Schizoaffective disorder, bipolar type F25.0 and Cannabis abuse F12.10 [facility] [id number] [place] [address] [id number] Dec, Dental examination Z01.20 [facility] [id number] [place] [address]679- 39[address] Dec, Chronic post-traumatic stress disorder (PTSD) F43.12 ; Schizoaffective disorder, bipolar type F25.0 and Cannabis abuse F12.10 [facility] [id number] [place] [address]- [address] Nov, Anxiety F41.9 ; Mild episode of recurrent major depressive disorder F33.0 and Post traumatic stress disorder (PTSD) F43.10 [facility] [id number] [place] [address]96- [address] Nov, Chronic post-traumatic stress disorder (PTSD) F43.12 ; Schizoaffective disorder, bipolar type F25.0 and Cannabis abuse F12.10 [facility] [id number] [place] [address] 97609- [address] Nov, Schizoaffective disorder, bipolar type F25.0 [facility] [id number] [place] [id number] Nov, Dental examination Z01.20 [facility] [id number] [place] [address]46- [address]99 Nov, [facility] [id number] [place] [address] 9[address]- [address] Nov, Anxiety F41.9 [facility] [id number] [place] [address] 15075- 9738 Nov, Chronic post-traumatic stress disorder (PTSD) F43.12 ; Schizoaffective disorder, bipolar type F25.0 and Cannabis abuse F12.10 [place] [address], [place] [address] Oct, [place] [id number] [place] [address]- 6[address] Oct, Chronic post-traumatic stress disorder (PTSD) F43.12 ; Schizoaffective disorder, bipolar type F25.0 and Cannabis abuse F12.10 [place] [id number] [place] [address] 94828- 4170 Oct, [place] [id number] [place] [address]- 5163 Oct, [place] [id number] [place] [address]99- [address] Oct, Chronic post-traumatic stress disorder (PTSD) F43.12 ; Schizoaffective disorder, bipolar type F25.0 and Cannabis abuse F12.10 [place] [id number] [place] [address]- [address] Sep, Encounter for immunization Z23 ; Obesity (BMI 30-39.9) E66.9 and Acute bilateral low back pain without sciatica M54.[address] [place] [address]37- 6[address] Sep, Routine gynecological examination Z01.419 ; control counseling Z30.09 ; Routine screening for STI (sexually transmitted infection) Z11.3 and Folliculitis L73.9 [place] [address] [place] [address]- [address]34 Sep, Chronic post-traumatic stress disorder (PTSD) F43.12 ; Schizoaffective disorder, bipolar type F25.0 and Cannabis abuse F12.10 [place] [id number] [place] [address] 96706- 59[address] Sep, Chronic post-traumatic stress disorder (PTSD) F43.12 ; Schizoaffective disorder, bipolar type F25.0 and Cannabis abuse F12.10 [place] [address] [id number] [address] Aug, Chronic post-traumatic stress disorder (PTSD) F43.12 ; Schizoaffective disorder, bipolar type F25.0 and Cannabis abuse F12.10 [facility] [address], [place] [address] Aug, Chronic post-traumatic stress disorder (PTSD) F43.12 ; Anxiety F41.9 ; 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 [id number] [place] [id number] 14 Jul, 2017 Encounter for dental examination Z01.20 [place] [id number] [place] [address] 88466- [address] 07 Jul, 2017 Chronic post-traumatic stress disorder (PTSD) F43.12 ; Schizoaffective disorder, bipolar type F25.0 and Cannabis abuse F12.10 [place] [id number] [place] [address]294- 8847 Jul, [place] [id number] [place] [address] 57576- 7946 Jul, Chronic post-traumatic stress disorder (PTSD) F43.12 ; Anxiety F41.9 ; 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 [address] [id number] Jun, Dental examination Z01.20 [facility] [id number] [place] [address] 704150- 4586 May, Chronic post-traumatic stress disorder (PTSD) F43.12 ; Schizoaffective disorder, bipolar type F25.0 and Cannabis abuse F12.10 [facility] [address] [place] [address] 094223- 0496 May, Chronic post-traumatic stress disorder (PTSD) F43.12 ; Schizoaffective disorder, bipolar type F25.0 and Cannabis abuse F12.10 [facility] [id number] [place] [address] [id number] May, Dental caries K02.9 [facility] [id number] [place] [address] [id number] Apr, Dental examination Z01.20 [facility] [id number] [place] [address] [id number]- 2826 March, Chronic post-traumatic stress disorder (PTSD) F43.12 ; Schizoaffective disorder, bipolar type F25.0 and Cannabis abuse F12.10 [facility] [id number] [place] [address] 07247- 4167 Feb, [facility] [address], [place] [address]- 7[address] Feb, [facility] [id number] [place] [address] 67283- 2197 Feb, Anxiety F41.9 [facility] [id number], [place] [address] Feb, Severe major depression with psychotic features F32.3 ; Panic disorder [episodic paroxysmal anxiety] without agoraphobia F41.0 ; Acute stress reaction F43.0 ; Anxiety F41.9 ; Schizoaffective disorder, bipolar type F25.0 ; Chronic post-traumatic stress disorder (PTSD) F43.12 ; Obesity due to excess calories, unspecified obesity severity E66.09 and Screening cholesterol level Z13.220 [place] [address], [place] [address] Feb, Schizoaffective disorder, bipolar type F25.0 [place] [address], [place] [address]- 3[address] Feb, [place] [id number] [place] [address] 26772- 4425 Feb, Schizoaffective disorder, bipolar type F25.0 ; Chronic post- traumatic stress disorder (PTSD) F43.12 ; 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 and Cannabis abuse F12.10 [place] [id number] [place] [address] 20165- 8503 Jan, Anxiety F41.9 ; Acute stress reaction F43.0 ; Severe major depression with psychotic features F32.3 and Panic disorder [episodic paroxysmal anxiety] without agoraphobia F41.0 [place] [address] [place] [address] 42933- 9802 Jan, Severe major depression with psychotic features F32.3 ; Acute stress reaction F43.0 ; Anxiety F41.9 and Panic disorder [episodic paroxysmal anxiety] without agoraphobia F41.0 [place] [address] [place] [address] 37631- 8512 14 Jan, 2017 Withdrawal from other psychoactive substance F19.939 and Severe major depression with psychotic features F32.3 [place] [id number] [place] [address] 33055- 9303 Jan, Severe major depression with psychotic features F32.3 ; Acute stress reaction F43.0 and Panic disorder [episodic paroxysmal anxiety] without agoraphobia [facility]41.0 [facility] [address] [place] [address] Jul, Withdrawal from other psychoactive substance F19.939 and Bilateral low back pain without sciatica, unspecified chronicity M54.5 [facility] [address] [place] [address] 14 Jul, 2016 High risk sexual behavior Z72.51 ; Well woman exam Z01.419 ; Dyspareunia in female N94.1 and Encounter for IUD removal Z30.432 [facility] [address], [place] [address] Feb, [facility] [id number], [place] [address] 8032 Feb, [facility] [id number], [place] [address] 4703 Oct, [facility] [id number], [place] [address]- 37[address] Oct, IMMUNIZATIONS No Known Immunizations SOCIAL HISTORY [...]
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
--- OUTSIDE RECORDS SUMMARY | 2019-01-13 20:20 | XMS REPORT | Clinical Summary ---
Author Author Admin, MARCO ANTONIO Gardiner [facility] Address Unknown Phone Allergies, Adverse Reactions, Alerts Allergy Name Reaction Description Start Date Severity Status Provider No Known Allergies Cecelia Russell [facility] Conditions or Problems Problem Name Problem Code [...] MD PhD Routine follow-up CONTRACEPTIVE MANAGEMENT V25.09 Active Chloe Wagner MD Encounter for other general counseling and advice on contraceptive management Low back pain 724.2 Active Jacque Blas MD PhD Lumbago Neck pain 723.1 Active Jacque Blas MD PhD Cervicalgia Depression/anxiety 300.4 Active Jacque Blas MD PhD Dysthymic disorder , NORMAL ICD-V22.2 Inactive Jacque Blas MD [...] PhD WARTS, VIRAL, UNSPECIFIED ICD-078.10 Inactive Jacque Blsa MD PhD EXAMINATION ICD-V24.2 Inactive Jacque Blas MD PhD Medication List Medication Instructions Start Date Stop Date Generic Name NDC Status Provider Patient Instruction CITALOPRAM HYDROBROMIDE 10 MG TABS 1 pill daily, for depression/anxiety 02/09 CITALOPRAM HYDROBROMIDE 59084429843 Active Jacque Blas MD PhD Active HYDROCODONE-ACETAMINOPHEN 7.5-325 MG TABS 1 four times a day as needed for pain HYDROCODONE-ACETAMINOPHEN 92830014779 Active Jacque Blas MD PhD Active HYDROCODONE-ACETAMINOPHEN 5-325 MG TABS 1 pill three times daily as needed for pain HYDROCODONE-ACETAMINOPHEN 55140055195 No Longer Active Jacque Blas MD PhD Active ROBAXIN 500 MG TAB 1-2 pills up to four times daily if needed for muscle spasms METHOCARBAMOL 10792566920 Active Jacque Blas MD PhD Active IBUPROFEN 600 MG TAB 1 pill four times daily, with food IBUPROFEN 95361311506 Active Jacque Blas MD PhD Active TRAMADOL HCL 50 MG TABS 1-2 tablets every 6 hours as needed for pain TRAMADOL HCL 53464853382 No Longer Active Jacque Blas MD PhD Active TYLENOL EXTRA STRENGTH 500 MG TABS 2 @ HS ACETAMINOPHEN 66269712395 No Longer Active Jacque Blas MD PhD Active SERTRALINE HCL 50 MG TABS 1 daily for depression SERTRALINE HCL 47158466579 No Longer Active Jacque Blas MD PhD Active BACTRIM DS 800-160 MG TAB 1 tab by mouth twice daily TRIMETHOPRIM-SULFAMETHOXAZOLE 02368739343 No Longer Active Eva Alejo APRN Active FLINSTONES GUMMIES OMEGA-3 DHA CHEW Take one by mouth daily PEDIATRIC MULTIPLE VIT-C-FA 49791755853 No Longer Active Jacque Blas MD PhD Active RANITIDINE HCL 150 MG CAPS 1 twice a day RANITIDINE HCL 37435027172 No Longer Active Jacque Blas MD PhD Active PNV-OMEGA 28-0.6-0.4-340 MG CAPS 1 pill by mouth daily PRENAT W/O K-[id number]-FA-OMEGA 87530433128 No Longer Active Jacque Blas MD PhD Active BACTRIM DS 800-160 MG TAB 1 tab by mouth twice daily TRIMETHOPRIM-SULFAMETHOXAZOLE 59201091511 No Longer Active Jacque Blas MD PhD Active METRONIDAZOLE 250 MG TABS 1 TID METRONIDAZOLE 97623826807 No Longer Active Jacque Blas MD PhD Active TRI-SPRINTEC 0.18/0.215/0.25 MG-35 MCG TABS 1 PO q Day NORGESTIM-ETH ESTRAD TRIPHASIC 54563995750 No Longer Active Jacque Blas MD PhD Active ALPRAZOLAM 0.25 MG TABS 1/2 tab to 1 tab PO TID PRN ALPRAZOLAM 28030540405 No Longer Active Jacque Blas MD PhD Active FLUOXETINE HCL 10 MG CAPS 2 PO q AM FLUOXETINE HCL 94827931301 No Longer Active Jacque Blas MD PhD Active ALPRAZOLAM 0.25 MG TABS 1/2 tab to 1 tab PO TID PRN ALPRAZOLAM 0.25 MG TABS 211889 ALPRAZOLAM Inactive TRI-SPRINTEC 0.18/0.215/0.25 MG-35 MCG TABS 1 PO q Day TRI-SPRINTEC 0.18/0.215/0.25 MG-35 MCG TABS 094164 NORGESTIM-ETH ESTRAD TRIPHASIC Inactive PNV-OMEGA 28-0.6-0.4-340 MG CAPS 1 pill by mouth daily PNV-OMEGA 28-0.6-0.4-340 MG CAPS PRENAT W/O [id number]-OMEGA Inactive RANITIDINE HCL 150 MG CAPS 1 twice a day RANITIDINE HCL 150 MG CAPS 035385 RANITIDINE HCL Inactive FLINSTONES GUMMIES OMEGA-3 DHA CHEW Take one by mouth daily FLINSTONES GUMMIES OMEGA-3 DHA CHEW PEDIATRIC MULTIPLE VIT-C-FA Inactive SERTRALINE HCL 50 MG TABS 1 daily for depression SERTRALINE HCL 50 MG TABS 210942 SERTRALINE HCL Inactive TYLENOL EXTRA STRENGTH 500 MG TABS 2 @ HS TYLENOL EXTRA STRENGTH 500 MG TABS 443164 ACETAMINOPHEN Inactive TRAMADOL HCL 50 MG TABS 1-2 tablets every 6 hours as needed for pain TRAMADOL HCL 50 MG TABS 394943 TRAMADOL HCL Inactive HYDROCODONE-ACETAMINOPHEN 5-325 MG TABS 1 pill three times daily as needed for pain HYDROCODONE-ACETAMINOPHEN 5-325 MG TABS 059760 HYDROCODONE-ACETAMINOPHEN Inactive FLUOXETINE HCL 10 MG CAPS 2 PO q AM FLUOXETINE HCL 10 MG CAPS 823831 FLUOXETINE HCL Inactive METRONIDAZOLE 250 MG TABS 1 TID METRONIDAZOLE 250 MG TABS 058342 METRONIDAZOLE Inactive BACTRIM DS 800-160 MG TAB 1 tab by mouth twice daily BACTRIM DS 800-160 MG TAB TRIMETHOPRIM-SULFAMETHOXAZOLE Inactive BACTRIM DS 800-160 MG TAB 1 tab by mouth twice daily BACTRIM DS 800-160 MG TAB TRIMETHOPRIM-SULFAMETHOXAZOLE Inactive Advance Directives Directive Description Start Date PERMISSION TO SHARE Immunizations Vaccine Administration Date Value Standard Description Adacel immunization Adacel [[id number]] tetanus toxoid, reduced diphtheria toxoid, and acellular pertussis vaccine, adsorbed hepatitis B vaccine series yes hepatitis B vaccine, unspecified formulation Vital Signs Date Name Value Unit Range Description blood pressure, diastolic 85 mm[Hg] BP sellers blood pressure, systolic 128 mm[Hg] BP sys height E&M 65 [in_us] Bdy height pulse rate E&M 117 /min Heart rate temperature E&M 98.6 [degF] Body temperature weight E&M 181 [lb_av] Weight Measured blood pressure, diastolic 74 mm[Hg] BP sellers blood pressure, systolic 132 mm[Hg] BP sys height E&M 65 [in_us] Bdy height pulse rate E&M 108 /min Heart rate temperature E&M 98.0 [degF] Body temperature weight E&M 190.38 [lb_av] Weight Measured blood pressure, diastolic 73 mm[Hg] BP sellers blood pressure, systolic 120 mm[Hg] BP sys height E&M 65 [in_us] Bdy height pulse rate E&M 110 /min Heart rate temperature E&M 98.8 [degF] Body temperature weight E&M 208 [lb_av] Weight Measured blood pressure, diastolic 76 mm[Hg] BP sellers blood pressure, systolic 117 mm[Hg] BP sys height E&M 65 [in_us] Bdy height pulse rate E&M 102 /min Heart rate temperature E&M 97.9 [degF] Body temperature weight E&M 215 [lb_av] Weight Measured blood pressure, diastolic 78 mm[Hg] BP sellers blood pressure, systolic 110 mm[Hg] BP sys pulse rate E&M 108 /min Heart rate temperature E&M 97.6 [degF] Body temperature weight E&M 217 [lb_av] Weight Measured blood pressure, diastolic 73 mm[Hg] BP sellers blood pressure, systolic 103 mm[Hg] BP sys height E&M 35 [in_us] Bdy height pulse rate E&M 78 /min Heart rate temperature E&M 97.2 [degF] Body temperature weight E&M 221 [lb_av] Weight Measured blood pressure, diastolic 86 mm[Hg] BP sellers blood pressure, systolic 128 mm[Hg] BP sys height E&M 35 [in_us] Bdy height pulse rate E&M 112 /min Heart rate temperature E&M 98.1 [degF] Body temperature weight E&M 230 [lb_av] Weight Measured blood pressure, diastolic 80 mm[Hg] BP sellers blood pressure, systolic 122 mm[Hg] BP sys height E&M 65 [in_us] Bdy height pulse rate E&M 111 /min Heart rate temperature E&M 97.9 [degF] Body temperature weight E&M 260 [lb_av] Weight Measured blood pressure, diastolic 71 mm[Hg] BP sellres blood pressure, systolic 103 mm[Hg] BP sys height E&M 65 [in_us] Bdy height pulse rate E&M 106 /min Heart rate temperature E&M 98.7 [degF] Body temperature weight E&M 257.6 [lb_av] Weight Measured blood pressure, diastolic 82 mm[Hg] BP sellers blood pressure, systolic 133 mm[Hg] BP sys height E&M 65 [in_us] Bdy height pulse rate E&M 106 /min Heart rate temperature E&M 97.9 [degF] Body temperature weight E&M 252 [lb_av] Weight Measured blood pressure, diastolic 78 mm[Hg] BP sellers blood pressure, systolic 123 mm[Hg] BP sys height E&M 65 [in_us] Bdy height pulse rate E&M 108 /min Heart rate temperature E&M 99 [degF] Body temperature weight E&M 245 [lb_av] Weight Measured blood pressure, diastolic 76 mm[Hg] BP sellers blood pressure, systolic 117 mm[Hg] BP sys height E&M 65 [in_us] Bdy height pulse rate E&M 67 /min Heart rate temperature E&M 98.0 [degF] Body temperature weight E&M 245.38 [lb_av] Weight Measured blood pressure, diastolic 73 mm[Hg] BP sellers blood pressure, systolic 117 mm[Hg] BP sys height E&M 65 [in_us] Bdy height pulse rate E&M 93 /min Heart rate temperature E&M 98.1 [degF] Body temperature weight E&M 239 [lb_av] Weight Measured blood pressure, diastolic 73 mm[Hg] BP sellers blood pressure, systolic 113 mm[Hg] BP sys height E&M 65 [in_us] Bdy height pulse rate E&M 89 /min Heart rate temperature E&M 98.0 [degF] Body temperature weight E&M 231.8 [lb_av] Weight Measured Diagnostic Results Date Name Value Unit Range Description Lab Report: ANTIBODY SCREEN, RBCW/REFL I - Blood bank antibody screen, serum NO ANTIBODIES DETECTED Lab Report: Chlamydia/GC APTIMA/02478 - Lab chlamydia DNA probe NOT DETECTED NOT DETECTED Lab Report: Chlamydia/GC APTIMA/09835 - Microbiology Neisseria gonorrhoeae DNA probe NOT DETECTED NOT DETECTED Lab Report: Chlamydia/GC DNA, SDA - Lab chlamydia DNA probe NOT DETECTED NOT DETECTED chlamydia DNA probe NOT DETECTED NOT DETECTED Lab Report: Chlamydia/GC DNA, SDA - Microbiology Neisseria gonorrhoeae DNA probe NOT DETECTED NOT DETECTED Neisseria gonorrhoeae DNA probe NOT DETECTED NOT DETECTED Office Visit: OB Visit 26 week - Chemistry protein, total urine random Tr mg/dL Office Visit: OB Visit 26 week - Urinalysis glucose, urine, semiquantitative N nitrite, urine, semiquantitative N Office Visit: OB Visit 29 weeks - Chemistry protein, total urine random trace mg/dL Office Visit: OB Visit 29 weeks - Urinalysis glucose, urine, semiquantitative negative leukocyte esterase, urine, by dipstick negative nitrite, urine, semiquantitative negative urinalysis, routine Clean Catch Office Visit: OB Visit 32 week, heartburn - Chemistry protein, total urine random negative mg/dL Office Visit: OB Visit 32 week, heartburn - Urinalysis glucose, urine, semiquantitative negative urine color yellow appearance, urine clear leukocyte esterase, urine, by dipstick negative nitrite, urine, semiquantitative negative Office Visit: OB Visit 37 week - Chemistry protein, total urine random Tr mg/dL Office Visit: OB Visit 37 week - Urinalysis glucose, urine, semiquantitative N nitrite, urine, semiquantitative N urine color yellow appearance, urine cloudy urinalysis, routine Clean Catch culture status No Office Visit: ob visit 38 week, schedule induction - Chemistry protein, total urine random negative mg/dL Office Visit: ob visit 38 week, schedule induction - Urinalysis glucose, urine, semiquantitative negative urine color yellow appearance, urine clear leukocyte esterase, urine, by dipstick negative nitrite, urine, semiquantitative negative Office Visit: OB Visit- 1week - Chemistry protein, total urine random negative mg/dL Office Visit: OB Visit- 1week - Urinalysis glucose, urine, semiquantitative negative urinalysis, routine Clean Catch urine color green appearance, urine clear leukocyte esterase, urine, by dipstick negative nitrite, urine, semiquantitative negative Office Visit: problem with mirena - Chemistry human chorionic gonadotropin, urine, qualitative (urine test) Negative Office Visit: String check - Chemistry protein, total urine random negative mg/dL Office Visit: String check - Urinalysis urinalysis, routine Clean Catch culture status Yes urine color straw appearance, urine cloudy leukocyte esterase, urine, by dipstick negative nitrite, urine, semiquantitative positive specific gravity, urine 1.000 glucose, urine, semiquantitative negative bilirubin, urine negative Encounters Code Encounter Date Provider Facility CPT-62771 Level 3 Est. Patient 15:41:32 CDT Jacque Blas MD [facility] CPT-03429 Level 3 Est. Patient 18:02:00 [employer]IOR [employer]ELOPER Jacque Blas MD [facility] CPT-74297 Level 3 Est. Patient 21:41:26 [employer] DEVELOPER Jacque Blas MD [facility] CPT-34578 Level 4 Est. Patient 14:43:47 [employer]IOR [employer] DEVELOPER Jacque Blas MD [facility] CPT-53236 Level 3 Est. Patient 20:16:54 [employer]IOR [employer] DEVELOPER Jacque Blas MD [facility] CPT-66758 Level 3 Est. Patient 13:31:37 CDT Jacque Blas MD [facility] CPT-63846 Level 3 New Patient 18:16:07 CDT Jacque Blas MD [facility] Procedures Code Procedure Name Date Entry Date Standard Description CPT-82013 LS spine comp w obliq 15:53:02 [employer]IOR [employer] E[employer] DEVELOPER CPT-92159 C-Spine Min 4V 15:53:02 [employer]IOR [employer] DEVELOPER CPT-72329 UHCG (floor use only) 14:15:45 CDT CPT-65712 UHCG (floor use only) 14:09:15 CDT CPT-J7302 Mirena IUD 13:30:58 CDT CPT-09379 Insertion of IUD 13:30:58 CDT CPT-OV Office Visit 13:30:58 CDT CPT-90111 Visit 10:48:09 CDT CPT-67997 Visit 15:34:57 CDT CPT-37225 Visit 15:25:55 CDT CPT-51116 Visit 13:58:45 CDT CPT-06997 Sono OB comp > 14 weeks 16:57:22 CDT CPT-LR Lesion Removal 09:33:27 CDT CPT-70974 Visit 12:50:42 CDT CPT-37080 Visit 18:34:25 CDT CPT-000 Give Appropriate Tetanus Booster 09:16:14 CDT CPT-95897 Administration single or combination vaccine inc oral 11 :36:32 CDT CPT-17466 Tdap 11:36:32 CDT CPT-73543 Visit 09:16:14 CDT CPT-71447 Visit 13:35:24 CDT CPT-26705 Sono OB comp > 14 weeks 11:46:07 CDT CPT-79131 Visit 17:08:15 CDT CPT-37970 Sono OB comp <14 weeks 15:47:19 [employer]EL[employer] CPT-70659 Visit 13:28:37 CDT CPT-35783 Spec Collection and Handling Fee 12:41:37 CDT CPT-38560 Visit 12:41:07 CDT CPT-88280 Visit 18:48:53 CDT CPT-89555 Visit 16:25:17 CDT CPT-54955 Sono OB comp > 14 weeks 11:38:18 CDT CPT-81594 Visit 13:36:17 CDT CPT-93378 Visit 13:48:22 CDT
--- OUTSIDE RECORDS SUMMARY | 2019-01-13 20:21 | XMS REPORT | Clinical Summary ---
Author Author Admin, MARCO ANTONIO Gardiner [facility] Address Unknown Phone Unavailable Allergies, Adverse Reactions, Alerts Allergy Name Reaction Description Start Date Severity Status Provider No Known Allergies [place] Elder Conditions or Problems Problem Name Problem [...] PhD Routine gynecological examination Neck pain 723.1 Active Jacque Blas MD PhD Cervicalgia Back pain, lumbar 724.2 Active Jacque Blas MD PhD Lumbago Mood swings 296.99 Active Jacque Blas MD PhD Other specified episodic mood disorder , NORMAL ICD-V22.2 Inactive Jacque Blas MD PhD EXCESS GROWTH AFFECT MGMT MOTH ANTPRTM ICD-656.63 Inactive Jacque Blas MD PhD UTERINE SIZE DATE DISCREPANCY ANTPRTM COND/COMPL ICD-649.63 05/05 Inactive Jacque Blas MD PhD DEPRESSION ICD-648.40 Inactive Jacque Blas MD PhD CONSTIPATION ICD-564.00 Inactive Jacque Blas MD PhD SUPRAPUBIC PAIN ICD-789.09 Anabelle Blas MD PhD SEXUALLY TRANSMITTED DISEASE, EXPOSURE TO ICD-V01.6 Inactive Jacque Blas MD PhD IRREGULAR MENSES ICD-626.4 Anabelle Blas MD PhD , NORMAL, MULTIGRAVIDA ICD-V22.1 Inactive Jacque Blas MD PhD OTHER SPECIFED COMPLICATION ANTEPARTUM ICD-646.83 Inactive Jacque Blas MD PhD BACTERIAL VAGINITIS ICD-616.10 Inactive Jacque Blas MD PhD DECR MOVMNTS MGMT MOTH ANTPRTM COND/COMP ICD-655.73 Inactive Jacque Blas MD PhD HEARTBURN ICD-787.1 Anabelle Blas MD PhD WARTS, VIRAL, UNSPECIFIED ICD-078.10 Inactive Jacque Blas MD PhD EXAMINATION ICD-V24.2 Anabelle Blas MD PhD Medication List Medication Instructions Start Date Stop Date Generic Name NDC Status Provider Patient Instruction LAMICTAL 25 MG TABS 1 pill by mouth daily x 2 weeks, then 2 pills daily 07/26 LAMOTRIGINE 17412826860 Active Jacque Blas MD PhD Active ROBAXIN 500 MG TAB 1-2 pills up to four times daily if needed for muscle spasms METHOCARBAMOL 62483194289 No Longer Active Jacque Blas MD PhD Active CITALOPRAM HYDROBROMIDE 10 MG TABS 1 pill daily, for depression/anxiety 02/09 CITALOPRAM HYDROBROMIDE 94878032908 No Longer Active Jacque Blas MD PhD Active HYDROCODONE-ACETAMINOPHEN 7.5-325 MG TABS 1 four times a day as needed for pain HYDROCODONE-ACETAMINOPHEN 62752767272 Active Jacque Blas MD PhD Active HYDROCODONE-ACETAMINOPHEN 5-325 MG TABS 1 pill three times daily as needed for pain HYDROCODONE-ACETAMINOPHEN 34927521440 No Longer Active Jacque Blas MD PhD Active IBUPROFEN 600 MG TAB 1 pill four times daily, with food IBUPROFEN 40028060539 Active Jacque Blas MD PhD Active TRAMADOL HCL 50 MG TABS 1-2 tablets every 6 hours as needed for pain TRAMADOL HCL 06193562488 No Longer Active Jacque Blas MD PhD Active TYLENOL EXTRA STRENGTH 500 MG TABS 2 @ HS ACETAMINOPHEN 42674989127 No Longer Active Jacque Blas MD PhD Active SERTRALINE HCL 50 MG TABS 1 daily for depression SERTRALINE HCL 80131197780 No Longer Active Jacque Blas MD PhD Active BACTRIM DS 800-160 MG TAB 1 tab by mouth twice daily TRIMETHOPRIM-SULFAMETHOXAZOLE 75388199368 No Longer Active Eva Aeljo APRN Active FLINSTONES GUMMIES OMEGA-3 DHA CHEW Take one by mouth daily PEDIATRIC MULTIPLE VIT-C-FA 06257508929 No Longer Active Jacque Blas MD PhD Active RANITIDINE HCL 150 MG CAPS 1 twice a day RANITIDINE HCL 13207403522 No Longer Active Jacque Blas MD PhD Active PNV-OMEGA 28-0.6-0.4-340 MG CAPS 1 pill by mouth daily PRENAT W/O O-MO-ZFBXF-FA-OMEGA 53773133985 No Longer Active Jacque Blas MD PhD Active BACTRIM DS 800-160 MG TAB 1 tab by mouth twice daily TRIMETHOPRIM-SULFAMETHOXAZOLE 12946752131 No Longer Active Jacque Blas MD PhD Active METRONIDAZOLE 250 MG TABS 1 TID METRONIDAZOLE 82923609355 No Longer Active Jacque Blas MD PhD Active TRI-SPRINTEC 0.18/0.215/0.25 MG-35 MCG TABS 1 PO q Day NORGESTIM-ETH ESTRAD TRIPHASIC 59522818979 No Longer Active Jacque Blas MD PhD Active ALPRAZOLAM 0.25 MG TABS 1/2 tab to 1 tab PO TID PRN ALPRAZOLAM 45206685615 No Longer Active Jacque Blas MD PhD Active FLUOXETINE HCL 10 MG CAPS 2 PO q AM FLUOXETINE HCL 46334880047 No Longer Active Jacque Blas MD PhD Active ALPRAZOLAM 0.25 MG TABS 1/2 tab to 1 tab PO TID PRN ALPRAZOLAM 0.25 MG TABS 496067 ALPRAZOLAM Inactive TRI-SPRINTEC 0.18/0.215/0.25 MG-35 MCG TABS 1 PO q Day TRI-SPRINTEC 0.18/0.215/0.25 MG-35 MCG TABS 244753 NORGESTIM-ETH ESTRAD TRIPHASIC Inactive PNV-OMEGA 28-0.6-0.4-340 MG CAPS 1 pill by mouth daily PNV-OMEGA 28-0.6-0.4-340 MG CAPS PRENAT W/O A-IV-IAUUM-FA-OMEGA Inactive RANITIDINE HCL 150 MG CAPS 1 twice a day RANITIDINE HCL 150 MG CAPS 190729 RANITIDINE HCL Inactive FLINSTONES GUMMIES OMEGA-3 DHA CHEW Take one by mouth daily FLINSTONES GUMMIES OMEGA-3 DHA CHEW PEDIATRIC MULTIPLE VIT-C-FA Inactive SERTRALINE HCL 50 MG TABS 1 daily for depression SERTRALINE HCL 50 MG TABS 428835 SERTRALINE HCL Inactive TYLENOL EXTRA STRENGTH 500 MG TABS 2 @ HS TYLENOL EXTRA STRENGTH 500 MG TABS 063799 ACETAMINOPHEN Inactive TRAMADOL HCL 50 MG TABS 1-2 tablets every 6 hours as needed for pain TRAMADOL HCL 50 MG TABS 234655 TRAMADOL HCL Inactive HYDROCODONE-ACETAMINOPHEN 5-325 MG TABS 1 pill three times daily as needed for pain HYDROCODONE-ACETAMINOPHEN 5-325 MG TABS 630166 HYDROCODONE-ACETAMINOPHEN Inactive CITALOPRAM HYDROBROMIDE 10 MG TABS 1 pill daily, for depression/anxiety 02/09 CITALOPRAM HYDROBROMIDE 10 MG TABS 699116 CITALOPRAM HYDROBROMIDE Inactive ROBAXIN 500 MG TAB 1-2 pills up to four times daily if needed for muscle spasms ROBAXIN 500 MG TAB 041578 METHOCARBAMOL Inactive FLUOXETINE HCL 10 MG CAPS 2 PO q AM FLUOXETINE HCL 10 MG CAPS 308422 FLUOXETINE HCL Inactive METRONIDAZOLE 250 MG TABS 1 TID METRONIDAZOLE 250 MG TABS 515595 METRONIDAZOLE Inactive BACTRIM DS 800-160 MG TAB [...] reduced Diphtheria, and acellular Pertussis Immunization) Adacel [[id number]] tetanus toxoid, reduced diphtheria toxoid, and acellular pertussis vaccine, adsorbed hepatitis B vaccine series yes hepatitis B vaccine, unspecified formulation Vital Signs Date Name Value Unit Range Description blood pressure, diastolic - 8462-4 68 mm[Hg] [...] BP sellers blood pressure, systolic - 8480-6 128 mm[Hg] BP sys height E&M - 8302-2 65 [in_us] Bdy height pulse rate E&M - 8867-4 117 /min Heart rate temperature E&M 98.6 [degF] Body temperature weight E&M - 3141-9 181 [lb_av] Weight Measured blood pressure, diastolic - 8462-4 74 mm[Hg] BP sellers blood pressure, systolic - 8480-6 132 mm[Hg] BP sys height E&M - 8302-2 65 [in_us] Bdy height pulse rate E&M - 8867-4 108 /min Heart rate temperature E&M 98.0 [degF] Body temperature weight E&M - 3141-9 190.38 [lb_av] Weight Measured blood pressure, diastolic - 8462-4 73 mm[Hg] BP sellers blood pressure, systolic - 8480-6 120 mm[Hg] BP sys height E&M - 8302-2 65 [in_us] Bdy height pulse rate E&M - 8867-4 110 /min Heart rate temperature E&M 98.8 [degF] Body temperature weight E&M - 3141-9 208 [lb_av] Weight Measured blood pressure, diastolic - 8462-4 76 mm[Hg] BP sellers blood pressure, systolic - 8480-6 117 mm[Hg] BP sys height E&M - 8302-2 65 [in_us] Bdy height pulse rate E&M - 8867-4 102 /min Heart rate temperature E&M 97.9 [degF] Body temperature weight E&M - 3141-9 215 [lb_av] Weight Measured blood pressure, diastolic - 8462-4 78 mm[Hg] BP sellers blood pressure, systolic - 8480-6 110 mm[Hg] BP sys pulse rate E&M - 8867-4 108 /min Heart rate temperature E&M 97.6 [degF] Body temperature weight E&M - 3141-9 217 [lb_av] Weight Measured blood pressure, diastolic - 8462-4 73 mm[Hg] BP sellers blood pressure, systolic - 8480-6 103 mm[Hg] BP sys height E&M - 8302-2 35 [in_us] Bdy height pulse rate E&M - 8867-4 78 /min Heart rate temperature E&M 97.2 [degF] Body temperature weight E&M - 3141-9 221 [lb_av] Weight Measured Diagnostic Results Date Name Value Unit Range Description Lab Report: Chlamydia/GC APTIMA/34492 - Lab chlamydia DNA probe NOT DETECTED NOT DETECTED chlamydia DNA probe NOT DETECTED NOT DETECTED Lab Report: Chlamydia/GC APTIMA/99039 - Microbiology Neisseria gonorrhoeae DNA probe NOT DETECTED NOT DETECTED Neisseria gonorrhoeae DNA probe NOT DETECTED NOT DETECTED Lab Report: Chlamydia/GC DNA, SDA - Lab chlamydia DNA probe NOT DETECTED NOT DETECTED Lab Report: Chlamydia/GC DNA, SDA - Microbiology Neisseria gonorrhoeae DNA probe NOT DETECTED NOT DETECTED Office Visit: problem with mirena - Chemistry [...] negative Encounters Code Encounter Date Provider Facility CPT-14856 Level 3 Est. Patient 14:38:20 CDT Jacque Blas MD PhD [facility] CPT-17343 Level 4 Est. Patient 20:19:14 CDT Jacque Blas MD PhD [facility] CPT-91660 Level 3 Est. Patient 15:41:32 CDT Jacque Blas MD PhD [facility] CPT-94732 Level 3 Est. Patient 18:02:00 ADMINISTRATIVE SUPERVISOR Jacque Blas MD PhD [facility] CPT-99956 Level 3 Est. Patient 21:41:26 ADMINISTRATIVE SUPERVISOR Jacque Blas MD [facility] CPT-05965 Level 4 Est. Patient 14:43:47 ADMINISTRATIVE SUPERVISOR Jacque Blas MD [facility] CPT-18997 Level 3 Est. Patient 20:16:54 ADMINISTRATIVE SUPERVISOR Jacque Blas MD [facility] CPT-36270 Level 3 Est. Patient 13:31:37 CDT Jacque Blas MD [facility] CPT-27627 Level 3 New Patient 18:16:07 CDT Jacque Blas MD [facility] Procedures Code Procedure Name Date Entry Date Standard Description CPT-72147 LS spine comp w obliq 15:53:02 ADMINISTRATIVE SUPERVISOR CPT-43597 C-Spine Min 4V 15:53:02 ADMINISTRATIVE SUPERVISOR CPT-22205 UHCG (floor use only) 14:15:45 CDT CPT-06276 UHCG (floor use only) 14:09:15 CDT CPT-J7302 Mirena IUD 13:30:58 CDT CPT-97246 Insertion of IUD 13:30:58 CDT CPT-OV Office Visit 13:30:58 CDT CPT-49289 Visit 10:48:09 CDT CPT-06620 Visit 15:34:57 CDT CPT-27534 Visit 15:25:55 CDT CPT-89301 Visit 13:58:45 CDT CPT-98910 Sono OB comp > 14 weeks 16:57:22 CDT CPT-LR Lesion Removal 09:33:27 CDT CPT-51783 Visit 12:50:42 CDT CPT-41309 Visit 18:34:25 CDT CPT-000 Give Appropriate Tetanus Booster 09:16:14 CDT CPT-57773 Administration single or combination vaccine inc oral 11 :36:32 CDT CPT-85838 Tdap 11:36:32 CDT CPT-14421 Visit 09:16:14 CDT CPT-11339 Visit 13:35:24 CDT CPT-83267 Sono OB comp > 14 weeks 11:46:07 CDT CPT-25794 Visit 17:08:15 CDT CPT-65954 Sono OB comp <14 weeks 15:47:19 ADMINISTRATIVE SUPERVISOR CPT-92754 Visit 13:28:37 CDT CPT-42625 Spec Collection and Handling Fee 12:41:37 CDT CPT-20411 Visit 12:41:07 CDT CPT-10268 Visit 18:48:53 CDT CPT-82823 Visit 16:25:17 CDT CPT-19239 Sono OB comp > 14 weeks 11:38:18 CDT CPT-29361 Visit 13:36:17 CDT CPT-33987 Visit 13:48:22 CDT
--- OUTSIDE RECORDS SUMMARY | 2019-01-13 20:22 | XMS REPORT | Clinical Summary ---
Author Author Admin, MARCO ANTONIO Gardiner [facility] Address Unknown Phone Unavailable Allergies, Adverse Reactions, [...] menstrual cycle , NORMAL, MULTIGRAVIDA V22.1 Resolved Jaqcue Blas MD PhD Supervision of other normal [...] Jacque Blas MD PhD Routine gynecological examination , NORMAL ICD-V22.2 Inactive Jacque Blas MD [...] Generic Name NDC Status Provider Patient Instruction ROBAXIN 500 MG TAB 1-2 pills up to four times daily if needed for muscle spasms METHOCARBAMOL 75504279848 No Longer Active Jacque Blas MD PhD Active CITALOPRAM HYDROBROMIDE 10 MG TABS 1 pill daily, for depression/anxiety 02/09 CITALOPRAM HYDROBROMIDE 75506711041 No Longer Active Jacque Blas MD PhD Active HYDROCODONE-ACETAMINOPHEN 7.5-325 MG TABS 1 four times a day as needed for pain HYDROCODONE-ACETAMINOPHEN 12169146781 Active Jacque Blas MD PhD Active HYDROCODONE-ACETAMINOPHEN 5-325 MG TABS 1 pill three times daily as needed for pain HYDROCODONE-ACETAMINOPHEN 97040426813 No Longer Active Jacque Blas MD PhD Active IBUPROFEN 600 MG TAB 1 pill four times daily, with food IBUPROFEN 07944613245 Active Jacque Blas MD PhD Active TRAMADOL HCL 50 MG TABS 1-2 tablets every 6 hours as needed for pain TRAMADOL HCL 96475742594 No Longer Active Jacque Blas MD PhD Active TYLENOL EXTRA STRENGTH 500 MG TABS 2 @ HS ACETAMINOPHEN 30241899512 No Longer Active Jacque Blas MD PhD Active SERTRALINE HCL 50 MG TABS 1 daily for depression SERTRALINE HCL 37701753582 No Longer Active Jacque Blas MD PhD Active BACTRIM DS 800-160 MG TAB 1 tab by mouth twice daily TRIMETHOPRIM-SULFAMETHOXAZOLE 29384121743 No Longer Active Eva Alejo APRN Active FLINSTONES GUMMIES OMEGA-3 DHA CHEW Take one by mouth daily PEDIATRIC MULTIPLE VIT-C-FA 37346275833 No Longer Active Jacque Blas MD PhD Active RANITIDINE HCL 150 MG CAPS 1 twice a day RANITIDINE HCL 38487911947 No Longer Active Jacque Blas MD PhD Active PNV-OMEGA 28-0.6-0.4-340 MG CAPS 1 pill by mouth daily PRENAT W/O W-GC-LUCWE-FA-OMEGA 09597380458 No Longer Active Jacque Blas MD PhD Active BACTRIM DS 800-160 MG TAB 1 tab by mouth twice daily TRIMETHOPRIM-SULFAMETHOXAZOLE 77787187464 No Longer Active Jacque Blas MD PhD Active METRONIDAZOLE 250 MG TABS 1 TID METRONIDAZOLE 91797714272 No Longer Active Jacque Blas MD PhD Active TRI-SPRINTEC 0.18/0.215/0.25 MG-35 MCG TABS 1 PO q Day NORGESTIM-ETH ESTRAD TRIPHASIC 86528314217 No Longer Active Jacque Blas MD PhD Active ALPRAZOLAM 0.25 MG TABS 1/2 tab to 1 tab PO TID PRN ALPRAZOLAM 20053776999 No Longer Active Jacque Blas MD PhD Active FLUOXETINE HCL 10 MG CAPS 2 PO q AM FLUOXETINE HCL 11413003792 No Longer Active Jacque Blas MD PhD Active ALPRAZOLAM 0.25 MG TABS 1/2 tab to 1 tab PO TID PRN ALPRAZOLAM 0.25 MG TABS 876125 ALPRAZOLAM Inactive TRI-SPRINTEC 0.18/0.215/0.25 MG-35 MCG TABS 1 PO q Day TRI-SPRINTEC 0.18/0.215/0.25 MG-35 MCG TABS 071675 NORGESTIM-ETH ESTRAD TRIPHASIC Inactive PNV-OMEGA 28-0.6-0.4-340 MG CAPS 1 pill by mouth daily PNV-OMEGA 28-0.6-0.4-340 MG CAPS PRENAT W/O M-EA-BHLUZ-FA-OMEGA Inactive RANITIDINE HCL 150 MG CAPS 1 twice a day RANITIDINE HCL 150 MG CAPS 160212 RANITIDINE HCL Inactive FLINSTONES GUMMIES OMEGA-3 DHA CHEW Take one by mouth daily FLINSTONES GUMMIES OMEGA-3 DHA CHEW PEDIATRIC MULTIPLE VIT-C-FA Inactive SERTRALINE HCL 50 MG TABS 1 daily for depression SERTRALINE HCL 50 MG TABS 076639 SERTRALINE HCL Inactive TYLENOL EXTRA STRENGTH 500 MG TABS 2 @ HS TYLENOL EXTRA STRENGTH 500 MG TABS 259790 ACETAMINOPHEN Inactive TRAMADOL HCL 50 MG TABS 1-2 tablets every 6 hours as needed for pain TRAMADOL HCL 50 MG TABS 325763 TRAMADOL HCL Inactive HYDROCODONE-ACETAMINOPHEN 5-325 MG TABS 1 pill three times daily as needed for pain HYDROCODONE-ACETAMINOPHEN 5-325 MG TABS 270254 HYDROCODONE-ACETAMINOPHEN Inactive CITALOPRAM HYDROBROMIDE 10 MG TABS 1 pill daily, for depression/anxiety 02/09 CITALOPRAM HYDROBROMIDE 10 MG TABS 836479 CITALOPRAM HYDROBROMIDE Inactive ROBAXIN 500 MG TAB 1-2 pills up to four times daily if needed for muscle spasms ROBAXIN 500 MG TAB 007298 METHOCARBAMOL Inactive FLUOXETINE HCL 10 MG CAPS 2 PO q AM FLUOXETINE HCL 10 MG CAPS 072918 FLUOXETINE HCL Inactive METRONIDAZOLE 250 MG TABS 1 TID METRONIDAZOLE 250 MG TABS 848825 METRONIDAZOLE Inactive BACTRIM DS 800-160 MG TAB [...] reduced Diphtheria, and acellular Pertussis Immunization) Adacel [[id number]] tetanus toxoid, reduced diphtheria toxoid, and acellular pertussis vaccine, adsorbed hepatitis B vaccine series yes hepatitis B vaccine, unspecified formulation Vital Signs Date Name Value Unit Range Description blood pressure, diastolic - 8462-4 85 mm[Hg] [...] E&M - 3141-9 221 [lb_av] Weight Measured blood pressure, diastolic - 8462-4 86 mm[Hg] BP sellers blood pressure, systolic - 8480-6 128 mm[Hg] BP sys height E&M - 8302-2 35 [in_us] Bdy height pulse rate E&M - 8867-4 112 /min Heart rate temperature E&M 98.1 [degF] Body temperature weight E&M - 3141-9 230 [lb_av] Weight Measured Diagnostic Results Date Name Value Unit Range Description Lab Report: Chlamydia/GC APTIMA/70527 - Lab chlamydia DNA probe NOT DETECTED NOT DETECTED chlamydia DNA probe NOT DETECTED NOT DETECTED Lab Report: Chlamydia/GC APTIMA/39182 - Microbiology Neisseria gonorrhoeae DNA probe NOT [...] negative Encounters Code Encounter Date Provider Facility CPT-72068 Level 4 Est. Patient 20:19:14 CDT Jacque Blas MD [facility] CPT-49016 Level 3 Est. Patient 15:41:32 CDT Jacque Blas MD [facility] CPT-87083 Level 3 Est. Patient 18:02:00 TOLL GATE TENDER Jacque Blas MD PhD [facility] CPT-10231 Level 3 Est. Patient 21:41:26 TOLL GATE TENDER Jacque Blas MD PhD [facility] CPT-21718 Level 4 Est. Patient 14:43:47 TOLL GATE TENDER Jacque Blas MD [facility]-75350 Level 3 Est. Patient 20:16:54 TOLL GATE TENDER Jacque Blas MD PhD [facility] CPT-83984 Level 3 Est. Patient 13:31:37 CDT Jacque Blas MD [facility]-27379 Level 3 New Patient 18:16:07 CDT Jacque Blas MD PhD [facility] Procedures Code Procedure Name Date Entry Date Standard Description CPT-70343 LS spine comp w obliq 15:53:02 TOLL GATE TENDER CPT-98460 C-Spine Min 4V 15:53:02 TOLL GATE TENDER CPT-23336 UHCG (floor use only) 14:15:45 CDT CPT-74687 UHCG (floor use only) 14:09:15 CDT CPT-J7302 Mirena IUD 13:30:58 CDT CPT-57830 Insertion of IUD 13:30:58 CDT CPT-OV Office Visit 13:30:58 CDT CPT-01968 Visit 10:48:09 CDT CPT-67124 Visit 15:34:57 CDT CPT-09547 Visit 15:25:55 CDT CPT-06125 Visit 13:58:45 CDT CPT-88855 Sono OB comp > 14 weeks 16:57:22 CDT CPT-LR Lesion Removal 09:33:27 CDT CPT-87408 Visit 12:50:42 CDT CPT-46618 Visit 18:34:25 CDT CPT-000 Give Appropriate Tetanus Booster 09:16:14 CDT CPT-38867 Administration single or combination vaccine inc oral 11 :36:32 CDT CPT-46098 Tdap 11:36:32 CDT CPT-32973 Visit 09:16:14 CDT CPT-78294 Visit 13:35:24 CDT CPT-78913 Sono OB comp > 14 weeks 11:46:07 CDT CPT-35498 Visit 17:08:15 CDT CPT-09251 Sono OB comp <14 weeks 15:47:19 TOLL GATE TENDER CPT-56751 Visit 13:28:37 CDT CPT-42872 Spec Collection and Handling Fee 12:41:37 CDT CPT-28587 Visit 12:41:07 CDT CPT-62097 Visit 18:48:53 CDT CPT-69031 Visit 16:25:17 CDT CPT-24008 Sono OB comp > 14 weeks 11:38:18 CDT CPT-87770 Visit 13:36:17 CDT CPT-68301 Visit 13:48:22 CDT
--- OUTSIDE RECORDS SUMMARY | 2019-01-13 20:22 | XMS REPORT | Clinical Summary ---
Author Author Admin, MARCO ANTONIO Gardiner [facility] Address Unknown Phone Unavailable Allergies, Adverse [...] daily if needed for muscle spasms METHOCARBAMOL [id number] No Longer Active Jacque Blas MD PhD Active CITALOPRAM HYDROBROMIDE 10 MG TABS 1 pill daily, for depression/anxiety 02/09 CITALOPRAM HYDROBROMIDE 33424539347 No Longer Active Jacque Blas MD PhD Active HYDROCODONE-ACETAMINOPHEN 7.5-325 MG TABS 1 four times a day as needed for pain HYDROCODONE-ACETAMINOPHEN 77202873932 Active Bruce Vicente MD Active HYDROCODONE-ACETAMINOPHEN 5-325 MG TABS 1 pill three times daily as needed for pain HYDROCODONE-ACETAMINOPHEN 98547123395 No Longer Active Jacque Blas MD PhD Active IBUPROFEN 600 MG TAB 1 pill four times daily, with food IBUPROFEN 06910056979 Active Jacque Blas MD PhD Active TRAMADOL HCL 50 MG TABS 1-2 tablets every 6 hours as needed for pain TRAMADOL HCL 52746803095 No Longer Active Jacque Blas MD PhD Active TYLENOL EXTRA STRENGTH 500 MG TABS 2 @ HS ACETAMINOPHEN 38287784810 No Longer Active Jacque Blas MD PhD Active SERTRALINE HCL 50 MG TABS 1 daily for depression SERTRALINE HCL 10464859789 No Longer Active Jacque Blas MD PhD Active BACTRIM DS 800-160 MG TAB 1 tab by mouth twice daily TRIMETHOPRIM-SULFAMETHOXAZOLE 25557536677 No Longer Active Eva Alejo APRN Active FLINSTONES GUMMIES OMEGA-3 DHA CHEW Take one by mouth daily PEDIATRIC MULTIPLE VIT-C-FA 55014106286 No Longer Active Jacque Blas MD PhD Active RANITIDINE HCL 150 MG CAPS 1 twice a day RANITIDINE HCL 67149876742 No Longer Active Jacque Blas MD PhD Active PNV-OMEGA 28-0.6-0.4-340 MG CAPS 1 pill by mouth daily PRENAT W/O O-NX-YAZQK-FA-OMEGA 92742500614 No Longer Active Jacque Blas MD PhD Active BACTRIM DS 800-160 MG TAB 1 tab by mouth twice daily TRIMETHOPRIM-SULFAMETHOXAZOLE 53014184983 No Longer Active Jacque Blas MD PhD Active METRONIDAZOLE 250 MG TABS 1 TID METRONIDAZOLE 38525302198 No Longer Active Jacque Blas MD PhD Active TRI-SPRINTEC 0.18/0.215/0.25 MG-35 MCG TABS 1 PO q Day NORGESTIM-ETH ESTRAD TRIPHASIC 75669356887 No Longer Active Jacque Blas MD PhD Active ALPRAZOLAM 0.25 MG TABS 1/2 tab to 1 tab PO TID PRN ALPRAZOLAM 55919054439 No Longer Active Jacque Blas MD PhD Active FLUOXETINE HCL 10 MG CAPS 2 PO q AM FLUOXETINE HCL 35436137157 No Longer Active Jacque Blas MD PhD Active ALPRAZOLAM 0.25 MG TABS 1/2 tab to 1 tab PO TID PRN ALPRAZOLAM 0.25 MG TABS 046780 ALPRAZOLAM Inactive TRI-SPRINTEC 0.18/0.215/0.25 MG-35 MCG TABS 1 PO q Day TRI-SPRINTEC 0.18/0.215/0.25 MG-35 MCG TABS 238324 NORGESTIM-ETH ESTRAD TRIPHASIC Inactive PNV-OMEGA 28-0.6-0.4-340 MG CAPS 1 pill by mouth daily PNV-OMEGA 28-0.6-0.4-340 MG CAPS PRENAT W/O [id number]-[id number]-OMEGA Inactive RANITIDINE HCL 150 MG CAPS 1 twice a day RANITIDINE HCL 150 MG CAPS 361230 RANITIDINE HCL Inactive FLINSTONES GUMMIES OMEGA-3 DHA CHEW Take one by mouth daily FLINSTONES GUMMIES OMEGA-3 DHA CHEW PEDIATRIC MULTIPLE VIT-C-FA Inactive SERTRALINE HCL 50 MG TABS 1 daily for depression SERTRALINE HCL 50 MG TABS 638500 SERTRALINE HCL Inactive TYLENOL EXTRA STRENGTH 500 MG TABS 2 @ HS TYLENOL EXTRA STRENGTH 500 MG TABS 608239 ACETAMINOPHEN Inactive TRAMADOL HCL 50 MG TABS 1-2 tablets every 6 hours as needed for pain TRAMADOL HCL 50 MG TABS 487066 TRAMADOL HCL Inactive HYDROCODONE-ACETAMINOPHEN 5-325 MG TABS 1 pill three times daily as needed for pain HYDROCODONE-ACETAMINOPHEN 5-325 MG TABS 699963 HYDROCODONE-ACETAMINOPHEN Inactive CITALOPRAM HYDROBROMIDE 10 MG TABS 1 pill daily, for depression/anxiety 02/09 CITALOPRAM HYDROBROMIDE 10 MG TABS 563372 CITALOPRAM HYDROBROMIDE Inactive ROBAXIN 500 MG TAB 1-2 pills up to four times daily if needed for muscle spasms ROBAXIN 500 MG TAB 497784 METHOCARBAMOL Inactive FLUOXETINE HCL 10 MG CAPS 2 PO q AM FLUOXETINE HCL 10 MG CAPS 709461 FLUOXETINE HCL Inactive METRONIDAZOLE 250 MG TABS 1 TID METRONIDAZOLE 250 MG TABS 183826 METRONIDAZOLE Inactive BACTRIM DS 800-160 MG TAB [...] reduced Diphtheria, and acellular Pertussis Immunization) Adacel [[id number]] tetanus toxoid, reduced diphtheria toxoid, and acellular [...] Value Unit Range Description Lab Report: Chlamydia/GC APTIMA/71149 - Lab chlamydia DNA probe NOT DETECTED NOT DETECTED chlamydia DNA probe NOT DETECTED NOT DETECTED Lab Report: Chlamydia/GC APTIMA/23636 - Microbiology Neisseria gonorrhoeae DNA probe NOT [...] mg/dL Office Visit: String check - Urinalysis urine color straw urinalysis, routine Clean Catch glucose, urine, semiquantitative negative bilirubin, urine negative nitrite, urine, semiquantitative positive specific gravity, urine 1.000 leukocyte esterase, urine, by dipstick negative appearance, urine cloudy culture status Yes Encounters Code Encounter Date Provider Facility CPT-93995 Level 4 Est. Patient 20:19:14 CDT Jacque Blas MD PhD [facility] CPT-90775 Level 3 Est. Patient 15:41:32 CDT Jacque Blas MD PhD [facility] CPT-31100 Level 3 Est. Patient 18:02:00 DENTAL APPLIANCE MECHANIC Jacque Blas MD PhD [facility] CPT-20679 Level 3 Est. Patient 21:41:26 DENTAL APPLIANCE MECHANIC Jacque Blas MD PhD [facility] CPT-07321 Level 4 Est. Patient 14:43:47 DENTAL APPLIANCE MECHANIC Jacque Blas MD PhD [facility] CPT-31273 Level 3 Est. Patient 20:16:54 DENTAL APPLIANCE MECHANIC Jacque Blas MD PhD [facility] CPT-41617 Level 3 Est. Patient 13:31:37 CDT Jacque Blas MD PhD [facility] CPT-44963 Level 3 New Patient 18:16:07 CDT Jacque Blas MD PhD [facility] Procedures Code Procedure Name Date Entry Date Standard Description CPT-24558 LS spine comp w obliq 15:53:02 DENTAL APPLIANCE MECHANIC CPT-44185 C-Spine Min 4V 15:53:02 DENTAL APPLIANCE MECHANIC CPT-52968 UHCG (floor use only) 14:15:45 CDT CPT-55161 UHCG (floor use only) 14:09:15 CDT CPT-J7302 Mirena IUD 13:30:58 CDT CPT-41610 Insertion of IUD 13:30:58 CDT CPT-OV Office Visit 13:30:58 CDT CPT-77031 Visit 10:48:09 CDT CPT-08865 Visit 15:34:57 CDT CPT-51148 Visit 15:25:55 CDT CPT-47867 Visit 13:58:45 CDT CPT-28719 Sono OB comp > 14 weeks 16:57:22 CDT CPT-LR Lesion Removal 09:33:27 CDT CPT-89176 Visit 12:50:42 CDT CPT-34555 Visit 18:34:25 CDT CPT-000 Give Appropriate Tetanus Booster 09:16:14 CDT CPT-33562 Administration single or combination vaccine inc oral 11 :36:32 CDT CPT-55282 Tdap 11:36:32 CDT CPT-13005 Visit 09:16:14 CDT CPT-68756 Visit 13:35:24 CDT CPT-29685 Sono OB comp > 14 weeks 11:46:07 CDT CPT-94530 Visit 17:08:15 CDT CPT-80558 Sono OB comp <14 weeks 15:47:19 DENTAL APPLIANCE MECHANIC CPT-81710 Visit 13:28:37 CDT CPT-28263 Spec Collection and Handling Fee 12:41:37 CDT CPT-93841 Visit 12:41:07 CDT CPT-58399 Visit 18:48:53 CDT CPT-52527 Visit 16:25:17 CDT CPT-41443 Sono OB comp > 14 weeks 11:38:18 CDT CPT-98551 Visit 13:36:17 CDT CPT-14527 Visit 13:48:22 CDT
--- OUTSIDE RECORDS SUMMARY | 2019-01-13 20:23 | XMS REPORT | Clinical Summary ---
Author Author Admin, MARCO ANTONIO Gardiner [facility] Address Unknown Phone Unavailable Allergies, Adverse [...] daily if needed for muscle spasms METHOCARBAMOL 83421806022 No Longer Active Jacque Blas MD PhD Active CITALOPRAM HYDROBROMIDE 10 MG TABS 1 pill daily, for depression/anxiety 02/09 CITALOPRAM HYDROBROMIDE 97732976446 No Longer Active Jacque Blas MD PhD Active HYDROCODONE-ACETAMINOPHEN 7.5-325 MG TABS 1 four times a day as needed for pain HYDROCODONE-ACETAMINOPHEN 77821842062 Active Bruce Vicente MD Active HYDROCODONE-ACETAMINOPHEN 5-325 MG TABS 1 pill three times daily as needed for pain HYDROCODONE-ACETAMINOPHEN 98219075760 No Longer Active Jacque Blas MD PhD Active IBUPROFEN 600 MG TAB 1 pill four times daily, with food IBUPROFEN 59826981991 Active Jacque Blas MD PhD Active TRAMADOL HCL 50 MG TABS 1-2 tablets every 6 hours as needed for pain TRAMADOL HCL 94452909388 No Longer Active Jacque Blas MD PhD Active TYLENOL EXTRA STRENGTH 500 MG TABS 2 @ HS ACETAMINOPHEN 14029847772 No Longer Active Jacque Blas MD PhD Active SERTRALINE HCL 50 MG TABS 1 daily for depression SERTRALINE HCL 61759393086 No Longer Active Jacque Blas MD PhD Active BACTRIM DS 800-160 MG TAB 1 tab by mouth twice daily TRIMETHOPRIM-SULFAMETHOXAZOLE 58131356446 No Longer Active Eva Alejo APRN Active FLINSTONES GUMMIES OMEGA-3 DHA CHEW Take one by mouth daily PEDIATRIC MULTIPLE VIT-C-FA 40378547041 No Longer Active Jacque Blas MD PhD Active RANITIDINE HCL 150 MG CAPS 1 twice a day RANITIDINE HCL 83205777657 No Longer Active Jacque Blas MD PhD Active PNV-OMEGA 28-0.6-0.4-340 MG CAPS 1 pill by mouth daily PRENAT W/O D-DG-BUVTR-FA-OMEGA 87348014679 No Longer Active Jacque Blas MD PhD Active BACTRIM DS 800-160 MG TAB 1 tab by mouth twice daily TRIMETHOPRIM-SULFAMETHOXAZOLE 79979291467 No Longer Active Jacque Blas MD PhD Active METRONIDAZOLE 250 MG TABS 1 TID METRONIDAZOLE 29450135454 No Longer Active Jacque Blas MD PhD Active TRI-SPRINTEC 0.18/0.215/0.25 MG-35 MCG TABS 1 PO q Day NORGESTIM-ETH ESTRAD TRIPHASIC 77467697038 No Longer Active Jacque Blas MD PhD Active ALPRAZOLAM 0.25 MG TABS 1/2 tab to 1 tab PO TID PRN ALPRAZOLAM 63544369124 No Longer Active Jacque Blas MD PhD Active FLUOXETINE HCL 10 MG CAPS 2 PO q AM FLUOXETINE HCL 00223291514 No Longer Active Jacque Blas MD PhD Active ALPRAZOLAM 0.25 MG TABS 1/2 tab to 1 tab PO TID PRN ALPRAZOLAM 0.25 MG TABS 084258 ALPRAZOLAM Inactive TRI-SPRINTEC 0.18/0.215/0.25 MG-35 MCG TABS 1 PO q Day TRI-SPRINTEC 0.18/0.215/0.25 MG-35 MCG TABS 598013 NORGESTIM-ETH ESTRAD TRIPHASIC Inactive PNV-OMEGA 28-0.6-0.4-340 MG CAPS 1 pill by mouth daily PNV-OMEGA 28-0.6-0.4-340 MG CAPS PRENAT W/O U-UG-ILORH-FA-OMEGA Inactive RANITIDINE HCL 150 MG CAPS 1 twice a day RANITIDINE HCL 150 MG CAPS 478771 RANITIDINE HCL Inactive FLINSTONES GUMMIES OMEGA-3 DHA CHEW Take one by mouth daily FLINSTONES GUMMIES OMEGA-3 DHA CHEW PEDIATRIC MULTIPLE VIT-C-FA Inactive SERTRALINE HCL 50 MG TABS 1 daily for depression SERTRALINE HCL 50 MG TABS 757798 SERTRALINE HCL Inactive TYLENOL EXTRA STRENGTH 500 MG TABS 2 @ HS TYLENOL EXTRA STRENGTH 500 MG TABS 078415 ACETAMINOPHEN Inactive TRAMADOL HCL 50 MG TABS 1-2 tablets every 6 hours as needed for pain TRAMADOL HCL 50 MG TABS 519247 TRAMADOL HCL Inactive HYDROCODONE-ACETAMINOPHEN 5-325 MG TABS 1 pill three times daily as needed for pain HYDROCODONE-ACETAMINOPHEN 5-325 MG TABS 313368 HYDROCODONE-ACETAMINOPHEN Inactive CITALOPRAM HYDROBROMIDE 10 MG TABS 1 pill daily, for depression/anxiety 02/09 CITALOPRAM HYDROBROMIDE 10 MG TABS 716309 CITALOPRAM HYDROBROMIDE Inactive ROBAXIN 500 MG TAB 1-2 pills up to four times daily if needed for muscle spasms ROBAXIN 500 MG TAB 919592 METHOCARBAMOL Inactive FLUOXETINE HCL 10 MG CAPS 2 PO q AM FLUOXETINE HCL 10 MG CAPS 153143 FLUOXETINE HCL Inactive METRONIDAZOLE 250 MG TABS 1 TID METRONIDAZOLE 250 MG TABS 284346 METRONIDAZOLE Inactive BACTRIM DS 800-160 MG TAB [...] reduced Diphtheria, and acellular Pertussis Immunization) Adacel [[id number]] tetanus toxoid, reduced diphtheria toxoid, and acellular [...] Value Unit Range Description Lab Report: Chlamydia/GC APTIMA/53905 - Lab chlamydia DNA probe NOT DETECTED NOT DETECTED chlamydia DNA probe NOT DETECTED NOT DETECTED Lab Report: Chlamydia/GC APTIMA/75768 - Microbiology Neisseria gonorrhoeae DNA probe NOT [...] negative Encounters Code Encounter Date Provider Facility CPT-81785 Level 4 Est. Patient 20:19:14 CDT Jacque Blas MD [facility] CPT-85491 Level 3 Est. Patient 15:41:32 CDT Jacque Blas MD [facility] CPT-56464 Level 3 Est. Patient 18:02:00 DIAMOND DIE POLISHER Jacque Blas MD PhD [facility] CPT-25423 Level 3 Est. Patient 21:41:26 DIAMOND DIE POLISHER Jacque Blas MD PhD [facility] CPT-70928 Level 4 Est. Patient 14:43:47 DIAMOND DIE POLISHER Jacque Blas MD [facility]-60987 Level 3 Est. Patient 20:16:54 DIAMOND DIE POLISHER Jaqcue Blas MD PhD [facility] CPT-88020 Level 3 Est. Patient 13:31:37 CDT Jacque Blas MD [facility]-60263 Level 3 New Patient 18:16:07 CDT Jacque Blas MD PhD [facility] Procedures Code Procedure Name Date Entry Date Standard Description CPT-40742 LS spine comp w obliq 15:53:02 DIAMOND DIE POLISHER CPT-58833 C-Spine Min 4V 15:53:02 DIAMOND DIE POLISHER CPT-12368 UHCG (floor use only) 14:15:45 CDT CPT-02406 UHCG (floor use only) 14:09:15 CDT CPT-J7302 Mirena IUD 13:30:58 CDT CPT-81442 Insertion of IUD 13:30:58 CDT CPT-OV Office Visit 13:30:58 CDT CPT-27076 Visit 10:48:09 CDT CPT-05476 Visit 15:34:57 CDT CPT-13245 Visit 15:25:55 CDT CPT-29098 Visit 13:58:45 CDT CPT-01515 Sono OB comp > 14 weeks 16:57:22 CDT CPT-LR Lesion Removal 09:33:27 CDT CPT-36396 Visit 12:50:42 CDT CPT-12924 Visit 18:34:25 CDT CPT-000 Give Appropriate Tetanus Booster 09:16:14 CDT CPT-49903 Administration single or combination vaccine inc oral 11 :36:32 CDT CPT-89269 Tdap 11:36:32 CDT CPT-44657 Visit 09:16:14 CDT CPT-76091 Visit 13:35:24 CDT CPT-35788 Sono OB comp > 14 weeks 11:46:07 CDT CPT-00310 Visit 17:08:15 CDT CPT-08725 Sono OB comp <14 weeks 15:47:19 DIAMOND DIE POLISHER CPT-40822 Visit 13:28:37 CDT CPT-05910 Spec Collection and Handling Fee 12:41:37 CDT CPT-20716 Visit 12:41:07 CDT CPT-31713 Visit 18:48:53 CDT CPT-97398 Visit 16:25:17 CDT CPT-17202 Sono OB comp > 14 weeks 11:38:18 CDT CPT-29282 Visit 13:36:17 CDT CPT-60365 Visit 13:48:22 CDT
--- OUTSIDE RECORDS SUMMARY | 2019-01-13 20:23 | XMS REPORT ---
Author Author [facility] Medical Staff Organization [facility] Address [address], [place] [address] Phone [phone] Care Team Providers Care Material Handling Crew Supervisor Name Role Phone RAMSES MENDOZA, EDDY PP [phone] Summary purpose TRANSITION OF CARE AUTO GENERATION Chief Complaint and Reason for Visit Admit Diagnosis 1 HAND INJURY NOS Problem list No authorized problems tracked for [...] are available for this visit. Vital signs Type Value Date Respiration Rate 20breaths per minute :57 Pulse 110beats per minute :57 Oxygen Saturation 100% :57 BP Systolic 129mmHg 29-30-396731:57 BP Diastolic 87mmHg 30-37-370592:57 Temperature 99.1F :57 Social history Type Value Smoking Status CURRENT EVERY DAY SMOKER Treatment Plan No treatment plan text is available for this visit. Hospital discharge instructions Dismissal Condition fair Disposition on DC home Comment: Pt left without being seen by provider.
--- OUTSIDE RECORDS SUMMARY | 2019-01-13 20:23 | XMS REPORT | Clinical Summary ---
Author Author Admin, MARCO ANTONIO Gardiner [facility] Address Unknown Phone Unavailable Allergies, Adverse [...] daily if needed for muscle spasms METHOCARBAMOL 23994032826 No Longer Active Jacque Blas MD PhD Active CITALOPRAM HYDROBROMIDE 10 MG TABS 1 pill daily, for depression/anxiety 02/09 CITALOPRAM HYDROBROMIDE 94465352163 No Longer Active Jacque Blas MD PhD Active HYDROCODONE-ACETAMINOPHEN 7.5-325 MG TABS 1 four times a day as needed for pain HYDROCODONE-ACETAMINOPHEN 85274144061 Active Bruce Vicente MD Active HYDROCODONE-ACETAMINOPHEN 5-325 MG TABS 1 pill three times daily as needed for pain HYDROCODONE-ACETAMINOPHEN 28347688005 No Longer Active Jacque Blas MD PhD Active IBUPROFEN 600 MG TAB 1 pill four times daily, with food IBUPROFEN 21269494471 Active Jacque Blas MD PhD Active TRAMADOL HCL 50 MG TABS 1-2 tablets every 6 hours as needed for pain TRAMADOL HCL 38664072972 No Longer Active Jacque Blas MD PhD Active TYLENOL EXTRA STRENGTH 500 MG TABS 2 @ HS ACETAMINOPHEN 29352457348 No Longer Active Jacque Blas MD PhD Active SERTRALINE HCL 50 MG TABS 1 daily for depression SERTRALINE HCL 33615580749 No Longer Active Jacque Blas MD PhD Active BACTRIM DS 800-160 MG TAB 1 tab by mouth twice daily TRIMETHOPRIM-SULFAMETHOXAZOLE 73586485789 No Longer Active Eva Alejo APRN Active FLINSTONES GUMMIES OMEGA-3 DHA CHEW Take one by mouth daily PEDIATRIC MULTIPLE VIT-C-FA 74686275991 No Longer Active Jacque Blas MD PhD Active RANITIDINE HCL 150 MG CAPS 1 twice a day RANITIDINE HCL 10740639196 No Longer Active Jacque Blas MD PhD Active PNV-OMEGA 28-0.6-0.4-340 MG CAPS 1 pill by mouth daily PRENAT W/O G-SD-IYYEE-FA-OMEGA 08378623633 No Longer Active Jacque Blas MD PhD Active BACTRIM DS 800-160 MG TAB 1 tab by mouth twice daily TRIMETHOPRIM-SULFAMETHOXAZOLE 56579815836 No Longer Active Jacque Blas MD PhD Active METRONIDAZOLE 250 MG TABS 1 TID METRONIDAZOLE 44888652352 No Longer Active Jacque Blas MD PhD Active TRI-SPRINTEC 0.18/0.215/0.25 MG-35 MCG TABS 1 PO q Day NORGESTIM-ETH ESTRAD TRIPHASIC 71900900357 No Longer Active Jacque Blas MD PhD Active ALPRAZOLAM 0.25 MG TABS 1/2 tab to 1 tab PO TID PRN ALPRAZOLAM 54018882194 No Longer Active Jacque Blas MD PhD Active FLUOXETINE HCL 10 MG CAPS 2 PO q AM FLUOXETINE HCL 27568131891 No Longer Active Jacque Blas MD PhD Active ALPRAZOLAM 0.25 MG TABS 1/2 tab to 1 tab PO TID PRN ALPRAZOLAM 0.25 MG TABS 660763 ALPRAZOLAM Inactive TRI-SPRINTEC 0.18/0.215/0.25 MG-35 MCG TABS 1 PO q Day TRI-SPRINTEC 0.18/0.215/0.25 MG-35 MCG TABS 938798 NORGESTIM-ETH ESTRAD TRIPHASIC Inactive PNV-OMEGA 28-0.6-0.4-340 MG CAPS 1 pill by mouth daily PNV-OMEGA 28-0.6-0.4-340 MG CAPS PRENAT W/O L-VG-AAOOU-FA-OMEGA Inactive RANITIDINE HCL 150 MG CAPS 1 twice a day RANITIDINE HCL 150 MG CAPS 877668 RANITIDINE HCL Inactive FLINSTONES GUMMIES OMEGA-3 DHA CHEW Take one by mouth daily FLINSTONES GUMMIES OMEGA-3 DHA CHEW PEDIATRIC MULTIPLE VIT-C-FA Inactive SERTRALINE HCL 50 MG TABS 1 daily for depression SERTRALINE HCL 50 MG TABS 123825 SERTRALINE HCL Inactive TYLENOL EXTRA STRENGTH 500 MG TABS 2 @ HS TYLENOL EXTRA STRENGTH 500 MG TABS 530227 ACETAMINOPHEN Inactive TRAMADOL HCL 50 MG TABS 1-2 tablets every 6 hours as needed for pain TRAMADOL HCL 50 MG TABS 478196 TRAMADOL HCL Inactive HYDROCODONE-ACETAMINOPHEN 5-325 MG TABS 1 pill three times daily as needed for pain HYDROCODONE-ACETAMINOPHEN 5-325 MG TABS 583078 HYDROCODONE-ACETAMINOPHEN Inactive CITALOPRAM HYDROBROMIDE 10 MG TABS 1 pill daily, for depression/anxiety 02/09 CITALOPRAM HYDROBROMIDE 10 MG TABS 576820 CITALOPRAM HYDROBROMIDE Inactive ROBAXIN 500 MG TAB 1-2 pills up to four times daily if needed for muscle spasms ROBAXIN 500 MG TAB 343481 METHOCARBAMOL Inactive FLUOXETINE HCL 10 MG CAPS 2 PO q AM FLUOXETINE HCL 10 MG CAPS 311595 FLUOXETINE HCL Inactive METRONIDAZOLE 250 MG TABS 1 TID METRONIDAZOLE 250 MG TABS 372690 METRONIDAZOLE Inactive BACTRIM DS 800-160 MG TAB [...] reduced Diphtheria, and acellular Pertussis Immunization) Adacel [[id number]] tetanus toxoid, reduced diphtheria toxoid, and acellular [...] Value Unit Range Description Lab Report: Chlamydia/GC APTIMA/55574 - Lab chlamydia DNA probe NOT DETECTED NOT DETECTED chlamydia DNA probe NOT DETECTED NOT DETECTED Lab Report: Chlamydia/GC APTIMA/70247 - Microbiology Neisseria gonorrhoeae DNA probe NOT [...] negative Encounters Code Encounter Date Provider Facility CPT-34956 Level 4 Est. Patient 20:19:14 CDT Jacque Blas MD [facility] CPT-74875 Level 3 Est. Patient 15:41:32 CDT Jacque Blas MD [facility] CPT-01931 Level 3 Est. Patient 18:02:00 WHEEL BUFFER Jacque Blas MD PhD [facility] CPT-12225 Level 3 Est. Patient 21:41:26 WHEEL BUFFER Jacque Blas MD PhD [facility] CPT-26804 Level 4 Est. Patient 14:43:47 WHEEL BUFFER Jacque Blas MD [facility]-54015 Level 3 Est. Patient 20:16:54 WHEEL BUFFER Jacque Blas MD PhD [facility] CPT-71095 Level 3 Est. Patient 13:31:37 CDT Jacque Blas MD [facility]-22896 Level 3 New Patient 18:16:07 CDT Jacque Blas MD PhD [facility] Procedures Code Procedure Name Date Entry Date Standard Description CPT-74516 LS spine comp w obliq 15:53:02 WHEEL BUFFER CPT-89925 C-Spine Min 4V 15:53:02 WHEEL BUFFER CPT-11067 UHCG (floor use only) 14:15:45 CDT CPT-57477 UHCG (floor use only) 14:09:15 CDT CPT-J7302 Mirena IUD 13:30:58 CDT CPT-05367 Insertion of IUD 13:30:58 CDT CPT-OV Office Visit 13:30:58 CDT CPT-13052 Visit 10:48:09 CDT CPT-53735 Visit 15:34:57 CDT CPT-78319 Visit 15:25:55 CDT CPT-95274 Visit 13:58:45 CDT CPT-19739 Sono OB comp > 14 weeks 16:57:22 CDT CPT-LR Lesion Removal 09:33:27 CDT CPT-75680 Visit 12:50:42 CDT CPT-94954 Visit 18:34:25 CDT CPT-000 Give Appropriate Tetanus Booster 09:16:14 CDT CPT-52200 Administration single or combination vaccine inc oral 11 :36:32 CDT CPT-13576 Tdap 11:36:32 CDT CPT-10368 Visit 09:16:14 CDT CPT-78393 Visit 13:35:24 CDT CPT-31846 Sono OB comp > 14 weeks 11:46:07 CDT CPT-32638 Visit 17:08:15 CDT CPT-90389 Sono OB comp <14 weeks 15:47:19 WHEEL BUFFER CPT-82387 Visit 13:28:37 CDT CPT-15781 Spec Collection and Handling Fee 12:41:37 CDT CPT-81869 Visit 12:41:07 CDT CPT-20087 Visit 18:48:53 CDT CPT-34285 Visit 16:25:17 CDT CPT-91341 Sono OB comp > 14 weeks 11:38:18 CDT CPT-76750 Visit 13:36:17 CDT CPT-50684 Visit 13:48:22 CDT
--- OUTSIDE RECORDS SUMMARY | 2019-01-13 20:24 | XMS REPORT | Clinical Summary ---
Author Author Admin, MARCO ANTONIO Gardiner [facility] Address Unknown Phone Unavailable Allergies, Adverse Reactions, [...] disorder Aftercare, long-term use, medications NEC V58.69 Active Antonia Elder Long-term (current) use of other medications , NORMAL ICD-V22.2 Inactive Jacque Blas MD PhD EXCESS GROWTH AFFECT MGMT MOTH ANTPRTM ICD-656.63 Inactive Jacque Blas MD PhD UTERINE SIZE DATE DISCREPANCY ANTPRTM COND/COMPL ICD-649.63 05/05 Inactive Jacque Blas MD PhD DEPRESSION ICD-648.40 Inactive Jacque Blas MD PhD CONSTIPATION ICD-564.00 Inactive Jacque Blas MD PhD SUPRAPUBIC PAIN ICD-789.09 Inactive Jacque Blas MD PhD SEXUALLY TRANSMITTED DISEASE, EXPOSURE TO ICD-V01.6 Anabelle Blas MD PhD IRREGULAR MENSES ICD-626.4 Inactive Jacque Blas MD PhD , NORMAL, MULTIGRAVIDA ICD-V22.1 Anabelle Blas MD PhD OTHER SPECIFED COMPLICATION ANTEPARTUM ICD-646.83 Anabelle Blas MD PhD BACTERIAL VAGINITIS ICD-616.10 Anabelle Blas MD PhD DECR MOVMNTS MGMT MOTH [...] weeks, then 2 pills daily 07/26 LAMOTRIGINE 27214276941 Active Jacque Blas MD PhD Active ROBAXIN 500 MG TAB 1-2 pills up to four times daily if needed for muscle spasms METHOCARBAMOL 79095638120 No Longer Active Jacque Blas MD PhD Active CITALOPRAM HYDROBROMIDE 10 MG TABS 1 pill daily, for depression/anxiety 02/09 CITALOPRAM HYDROBROMIDE 99208326548 No Longer Active Jacque Blas MD PhD Active HYDROCODONE-ACETAMINOPHEN 7.5-325 MG TABS 1 four times a day as needed for pain HYDROCODONE-ACETAMINOPHEN 08610350413 Active Jacque Blas MD PhD Active HYDROCODONE-ACETAMINOPHEN 5-325 MG TABS 1 pill three times daily as needed for pain HYDROCODONE-ACETAMINOPHEN 12664629800 No Longer Active Jacque Blas MD PhD Active IBUPROFEN 600 MG TAB 1 pill four times daily, with food IBUPROFEN 94298867044 Active Jacque Blas MD PhD Active TRAMADOL HCL 50 MG TABS 1-2 tablets every 6 hours as needed for pain TRAMADOL HCL 62001056447 No Longer Active Jacque Blas MD PhD Active TYLENOL EXTRA STRENGTH 500 MG TABS 2 @ HS ACETAMINOPHEN 69675065249 No Longer Active Jacque Blas MD PhD Active SERTRALINE HCL 50 MG TABS 1 daily for depression SERTRALINE HCL 88300870709 No Longer Active Jacque Blas MD PhD Active BACTRIM DS 800-160 MG TAB 1 tab by mouth twice daily TRIMETHOPRIM-SULFAMETHOXAZOLE 47303299360 No Longer Active Eva Alejo APRN Active FLINSTONES GUMMIES OMEGA-3 DHA CHEW Take one by mouth daily PEDIATRIC MULTIPLE VIT-C-FA 54752755477 No Longer Active Jacque Blas MD PhD Active RANITIDINE HCL 150 MG CAPS 1 twice a day RANITIDINE HCL 05701674622 No Longer Active Jacque Blas MD PhD Active PNV-OMEGA 28-0.6-0.4-340 MG CAPS 1 pill by mouth daily PRENAT W/O G-YX-EVSZT-FA-OMEGA 55494867973 No Longer Active Jacque Blas MD PhD Active BACTRIM DS 800-160 MG TAB 1 tab by mouth twice daily TRIMETHOPRIM-SULFAMETHOXAZOLE 61657335310 No Longer Active Jacque Blas MD PhD Active METRONIDAZOLE 250 MG TABS 1 TID METRONIDAZOLE 31338430688 No Longer Active Jacque Blas MD PhD Active TRI-SPRINTEC 0.18/0.215/0.25 MG-35 MCG TABS 1 PO q Day NORGESTIM-ETH ESTRAD TRIPHASIC 41274212006 No Longer Active Jacque Blas MD PhD Active ALPRAZOLAM 0.25 MG TABS 1/2 tab to 1 tab PO TID PRN ALPRAZOLAM 03531200158 No Longer Active Jacque Blas MD PhD Active FLUOXETINE HCL 10 MG CAPS 2 PO q AM FLUOXETINE HCL 76693078840 No Longer Active Jacque Blas MD PhD Active ALPRAZOLAM 0.25 MG TABS 1/2 tab to 1 tab PO TID PRN ALPRAZOLAM 0.25 MG TABS 976526 ALPRAZOLAM Inactive TRI-SPRINTEC 0.18/0.215/0.25 MG-35 MCG TABS 1 PO q Day TRI-SPRINTEC 0.18/0.215/0.25 MG-35 MCG TABS 599325 NORGESTIM-ETH ESTRAD TRIPHASIC Inactive PNV-OMEGA 28-0.6-0.4-340 MG CAPS 1 pill by mouth daily PNV-OMEGA 28-0.6-0.4-340 MG CAPS PRENAT W/O P-RV-TAAQC-FA-OMEGA Inactive RANITIDINE HCL 150 MG CAPS 1 twice a day RANITIDINE HCL 150 MG CAPS 715565 RANITIDINE HCL Inactive FLINSTONES GUMMIES OMEGA-3 DHA CHEW Take one by mouth daily FLINSTONES GUMMIES OMEGA-3 DHA CHEW PEDIATRIC MULTIPLE VIT-C-FA Inactive SERTRALINE HCL 50 MG TABS 1 daily for depression SERTRALINE HCL 50 MG TABS 003328 SERTRALINE HCL Inactive TYLENOL EXTRA STRENGTH 500 MG TABS 2 @ HS TYLENOL EXTRA STRENGTH 500 MG TABS 151630 ACETAMINOPHEN Inactive TRAMADOL HCL 50 MG TABS 1-2 tablets every 6 hours as needed for pain TRAMADOL HCL 50 MG TABS 094062 TRAMADOL HCL Inactive HYDROCODONE-ACETAMINOPHEN 5-325 MG TABS 1 pill three times daily as needed for pain HYDROCODONE-ACETAMINOPHEN 5-325 MG TABS 131815 HYDROCODONE-ACETAMINOPHEN Inactive CITALOPRAM HYDROBROMIDE 10 MG TABS 1 pill daily, for depression/anxiety 02/09 CITALOPRAM HYDROBROMIDE 10 MG TABS 024063 CITALOPRAM HYDROBROMIDE Inactive ROBAXIN 500 MG TAB 1-2 pills up to four times daily if needed for muscle spasms ROBAXIN 500 MG TAB 698454 METHOCARBAMOL Inactive FLUOXETINE HCL 10 MG CAPS 2 PO q AM FLUOXETINE HCL 10 MG CAPS 472968 FLUOXETINE HCL Inactive METRONIDAZOLE 250 MG TABS 1 TID METRONIDAZOLE 250 MG TABS 138278 METRONIDAZOLE Inactive BACTRIM DS 800-160 MG TAB 1 tab by mouth twice daily BACTRIM DS 800-160 MG TAB TRIMETHOPRIM-SULFAMETHOXAZOLE Inactive BACTRIM DS 800-160 MG TAB 1 tab by mouth twice daily BACTRIM DS 800-160 MG TAB TRIMETHOPRIM-SULFAMETHOXAZOLE Inactive Advance Directives Directive Description Start Date PERMISSION TO SHARE Immunizations Vaccine Administration Date Value Standard Description dT (Diphtheria and Tetanus) booster given Td(adult) unspecified formulation Adacel immunization Adacel [[id number]] tetanus toxoid, reduced diphtheria toxoid, and acellular pertussis vaccine, adsorbed hepatitis B vaccine series yes hepatitis B vaccine, unspecified formulation Vital Signs Date Name Value Unit Range Description blood pressure, diastolic 68 mm[Hg] BP sellers blood pressure, systolic 109 mm[Hg] BP sys height E&M 65 [in_us] Bdy height pulse rate E&M 96 /min Heart rate temperature E&M 98.3 [degF] Body temperature weight E&M 162 [lb_av] Weight Measured blood pressure, diastolic 85 mm[Hg] BP sellers blood pressure, systolic 127 mm[Hg] BP sys height E&M 65 [in_us] Bdy height pulse rate E&M 95 /min Heart rate temperature E&M 99.1 [degF] Body temperature weight E&M 162 [lb_av] Weight Measured blood pressure, diastolic 85 mm[Hg] BP sellers [...] temperature weight E&M 215 [lb_av] Weight Measured Diagnostic Results Date Name Value Unit Range Description Lab Report: Chlamydia/GC APTIMA/95545 - Lab chlamydia DNA probe NOT DETECTED NOT DETECTED Lab Report: Chlamydia/GC APTIMA/09222 - Microbiology Neisseria gonorrhoeae DNA probe NOT DETECTED NOT DETECTED Lab Report: CKI, Erythrocyte Sed Rate - Chemistry creatine kinase, serum 63 U/L 26-192 Office Visit: String check - Chemistry protein, total urine random negative mg/dL Office Visit: String check - Urinalysis urinalysis, routine Clean Catch culture status Yes urine color straw appearance, urine cloudy leukocyte esterase, urine, by dipstick negative nitrite, urine, semiquantitative positive specific gravity, urine 1.000 glucose, urine, semiquantitative negative bilirubin, urine negative Encounters Code Encounter Date Provider Facility CPT-35539 Level 3 Est. Patient 14:38:20 CDT Jacque Blas MD PhD [facility] CPT-28406 Level 4 Est. Patient 20:19:14 CDT Jacque Blas MD PhD [facility] CPT-72578 Level 3 Est. Patient 15:41:32 CDT Jacque Blas MD [facility] CPT-02119 Level 3 Est. Patient 18:02:00 GYROSCOPE REPAIRER Jacque Blas MD [facility] CPT-45458 Level 3 Est. Patient 21:41:26 GYROSCOPE REPAIRER Jacque Blas MD [facility] CPT-75216 Level 4 Est. Patient 14:43:47 GYROSCOPE REPAIRER Jacque Blas MD [facility] CPT-73896 Level 3 Est. Patient 20:16:54 GYROSCOPE REPAIRER Jacque Blas MD [facility] CPT-35517 Level 3 Est. Patient 13:31:37 CDT Jacque Blas MD [facility] CPT-64232 Level 3 New Patient 18:16:07 CDT Jacque Blas MD [facility] Procedures Code Procedure Name Date Entry Date Standard Description CPT-80070 LS spine comp w obliq 15:53:02 GYROSCOPE REPAIRER CPT-63972 C-Spine Min 4V 15:53:02 GYROSCOPE REPAIRER CPT-93422 UHCG (floor use only) 14:15:45 CDT CPT-60458 UHCG (floor use only) 14:09:15 CDT CPT-J7302 Mirena IUD 13:30:58 CDT CPT-43744 Insertion of IUD 13:30:58 CDT CPT-OV Office Visit 13:30:58 CDT CPT-35473 Visit 10:48:09 CDT CPT-44043 Visit 15:34:57 CDT CPT-23647 Visit 15:25:55 CDT CPT-30621 Visit 13:58:45 CDT CPT-06032 Sono OB comp > 14 weeks 16:57:22 CDT CPT-LR Lesion Removal 09:33:27 CDT CPT-12583 Visit 12:50:42 CDT CPT-89931 Visit 18:34:25 CDT CPT-000 Give Appropriate Tetanus Booster 09:16:14 CDT CPT-97472 Administration single or combination vaccine inc oral 11 :36:32 CDT CPT-51894 Tdap 11:36:32 CDT CPT-89682 Visit 09:16:14 CDT CPT-68780 Visit 13:35:24 CDT CPT-39057 Sono OB comp > 14 weeks 11:46:07 CDT CPT-39193 Visit 17:08:15 CDT CPT-20066 Sono OB comp <14 weeks 15:47:19 GYROSCOPE REPAIRER CPT-34258 Visit 13:28:37 CDT CPT-92103 Spec Collection and Handling Fee 12:41:37 CDT CPT-05288 Visit 12:41:07 CDT CPT-92689 Visit 18:48:53 CDT CPT-23730 Visit 16:25:17 CDT CPT-56557 Sono OB comp > 14 weeks 11:38:18 CDT CPT-34227 Visit 13:36:17 CDT CPT-51255 Visit 13:48:22 CDT
--- OUTSIDE RECORDS SUMMARY | 2019-01-13 20:24 | XMS REPORT | Clinical Summary ---
Author Author Admin, MARCO ANTONIO Gardiner [facility] Address Unknown Phone Allergies, Adverse Reactions, Alerts Allergy Name Reaction Description Start Date Severity Status Provider No Known Allergies Cecelia Russell [facility] Conditions or Problems Problem Name Problem [...] pill daily, for depression/anxiety 02/09 CITALOPRAM HYDROBROMIDE 91067165444 Active Jacque Blas MD PhD Active HYDROCODONE-ACETAMINOPHEN 7.5-325 MG TABS 1 four times a day as needed for pain HYDROCODONE-ACETAMINOPHEN 32978532617 Active Jacque Blas MD PhD Active HYDROCODONE-ACETAMINOPHEN 5-325 MG TABS 1 pill three times daily as needed for pain HYDROCODONE-ACETAMINOPHEN 18082002617 No Longer Active Jacque Blas MD PhD Active ROBAXIN 500 MG TAB 1-2 pills up to four times daily if needed for muscle spasms METHOCARBAMOL 73636521140 Active Jacque Blas MD PhD Active IBUPROFEN 600 MG TAB 1 pill four times daily, with food IBUPROFEN 92834967792 Active Jacque Blas MD PhD Active TRAMADOL HCL 50 MG TABS 1-2 tablets every 6 hours as needed for pain TRAMADOL HCL 10217193701 No Longer Active Jacque Blas MD PhD Active TYLENOL EXTRA STRENGTH 500 MG TABS 2 @ HS ACETAMINOPHEN 24135008692 No Longer Active Jacque Blas MD PhD Active SERTRALINE HCL 50 MG TABS 1 daily for depression SERTRALINE HCL 16318013469 No Longer Active Jacque Blas MD PhD Active BACTRIM DS 800-160 MG TAB 1 tab by mouth twice daily TRIMETHOPRIM-SULFAMETHOXAZOLE 00491982802 No Longer Active Eva Alejo APRN Active FLINSTONES GUMMIES OMEGA-3 DHA CHEW Take one by mouth daily PEDIATRIC MULTIPLE VIT-C-FA 99801864237 No Longer Active Jacque Blas MD PhD Active RANITIDINE HCL 150 MG CAPS 1 twice a day RANITIDINE HCL 20205121719 No Longer Active Jacque Blas MD PhD Active PNV-OMEGA 28-0.6-0.4-340 MG CAPS 1 pill by mouth daily PRENAT W/O A-CO-FUVQV-FA-OMEGA 14945777851 No Longer Active Jacque Blas MD PhD Active BACTRIM DS 800-160 MG TAB 1 tab by mouth twice daily TRIMETHOPRIM-SULFAMETHOXAZOLE 36175248625 No Longer Active Jacque Blas MD PhD Active METRONIDAZOLE 250 MG TABS 1 TID METRONIDAZOLE 55482139964 No Longer Active Jacque Blas MD PhD Active TRI-SPRINTEC 0.18/0.215/0.25 MG-35 MCG TABS 1 PO q Day NORGESTIM-ETH ESTRAD TRIPHASIC 71686831853 No Longer Active Jacque Blas MD PhD Active ALPRAZOLAM 0.25 MG TABS 1/2 tab to 1 tab PO TID PRN ALPRAZOLAM 09265736673 No Longer Active Jacque Blas MD PhD Active FLUOXETINE HCL 10 MG CAPS 2 PO q AM FLUOXETINE HCL 30093927558 No Longer Active Jacque Blas MD PhD Active ALPRAZOLAM 0.25 MG TABS 1/2 tab to 1 tab PO TID PRN ALPRAZOLAM 0.25 MG TABS 247895 ALPRAZOLAM Inactive TRI-SPRINTEC 0.18/0.215/0.25 MG-35 MCG TABS 1 PO q Day TRI-SPRINTEC 0.18/0.215/0.25 MG-35 MCG TABS 104843 NORGESTIM-ETH ESTRAD TRIPHASIC Inactive PNV-OMEGA 28-0.6-0.4-340 MG CAPS 1 pill by mouth daily PNV-OMEGA 28-0.6-0.4-340 MG CAPS PRENAT W/O [id number]-OMEGA Inactive RANITIDINE HCL 150 MG CAPS 1 twice a day RANITIDINE HCL 150 MG CAPS 556410 RANITIDINE HCL Inactive FLINSTONES GUMMIES OMEGA-3 DHA CHEW Take one by mouth daily FLINSTONES GUMMIES OMEGA-3 DHA CHEW PEDIATRIC MULTIPLE VIT-C-FA Inactive SERTRALINE HCL 50 MG TABS 1 daily for depression SERTRALINE HCL 50 MG TABS 710855 SERTRALINE HCL Inactive TYLENOL EXTRA STRENGTH 500 MG TABS 2 @ HS TYLENOL EXTRA STRENGTH 500 MG TABS 194751 ACETAMINOPHEN Inactive TRAMADOL HCL 50 MG TABS 1-2 tablets every 6 hours as needed for pain TRAMADOL HCL 50 MG TABS 698978 TRAMADOL HCL Inactive HYDROCODONE-ACETAMINOPHEN 5-325 MG TABS 1 pill three times daily as needed for pain HYDROCODONE-ACETAMINOPHEN 5-325 MG TABS 302303 HYDROCODONE-ACETAMINOPHEN Inactive FLUOXETINE HCL 10 MG CAPS 2 PO q AM FLUOXETINE HCL 10 MG CAPS 457556 FLUOXETINE HCL Inactive METRONIDAZOLE 250 MG TABS 1 TID METRONIDAZOLE 250 MG TABS 913896 METRONIDAZOLE Inactive BACTRIM DS 800-160 MG TAB 1 tab by mouth twice daily BACTRIM DS 800-160 MG TAB TRIMETHOPRIM-SULFAMETHOXAZOLE Inactive BACTRIM DS 800-160 MG TAB 1 tab by mouth twice daily BACTRIM DS 800-160 MG TAB TRIMETHOPRIM-SULFAMETHOXAZOLE Inactive Advance Directives Directive Description Start Date PERMISSION TO SHARE Immunizations Vaccine Administration Date Value Standard Description Adacel immunization Adacel [[id number]] tetanus toxoid, reduced diphtheria toxoid, and acellular [...] Measured blood pressure, diastolic 71 mm[Hg] BP sellers blood pressure, systolic 103 [...] serum NO ANTIBODIES DETECTED Lab Report: Chlamydia/GC APTIMA/96985 - Lab chlamydia DNA probe NOT DETECTED NOT DETECTED Lab Report: Chlamydia/GC APTIMA/87443 - Microbiology Neisseria gonorrhoeae DNA probe NOT [...] negative Encounters Code Encounter Date Provider Facility CPT-68706 Level 3 Est. Patient 15:41:32 CDT Jacque Blas MD [facility] CPT-18314 Level 3 Est. Patient 18:02:00 WAITER WAITRESS Jacque Blas MD [facility] CPT-94748 Level 3 Est. Patient 21:41:26 WAITER WAITRESS Jacque Blas MD [facility] CPT-86627 Level 4 Est. Patient 14:43:47 WAITER WAITRESS Jacque Blas MD [facility] CPT-19045 Level 3 Est. Patient 20:16:54 WAITER WAITRESS Jacque Blas MD [facility] CPT-83147 Level 3 Est. Patient 13:31:37 CDT Jacque Blas MD [facility] CPT-08444 Level 3 New Patient 18:16:07 CDT Jacque Blas MD [facility] Procedures Code Procedure Name Date Entry Date Standard Description CPT-75035 LS spine comp w obliq 15:53:02 WAITER WAITRESS CPT-77421 C-Spine Min 4V 15:53:02 WAITER WAITRESS CPT-49505 UHCG (floor use only) 14:15:45 CDT CPT-55303 UHCG (floor use only) 14:09:15 CDT CPT-J7302 Mirena IUD 13:30:58 CDT CPT-69804 Insertion of IUD 13:30:58 CDT CPT-OV Office Visit 13:30:58 CDT CPT-21968 Visit 10:48:09 CDT CPT-76391 Visit 15:34:57 CDT CPT-94978 Visit 15:25:55 CDT CPT-54158 Visit 13:58:45 CDT CPT-53204 Sono OB comp > 14 weeks 16:57:22 CDT CPT-LR Lesion Removal 09:33:27 CDT CPT-46746 Visit 12:50:42 CDT CPT-12402 Visit 18:34:25 CDT CPT-000 Give Appropriate Tetanus Booster 09:16:14 CDT CPT-02175 Administration single or combination vaccine inc oral 11 :36:32 CDT CPT-62826 Tdap 11:36:32 CDT CPT-53442 Visit 09:16:14 CDT CPT-05564 Visit 13:35:24 CDT CPT-48751 Sono OB comp > 14 weeks 11:46:07 CDT CPT-26064 Visit 17:08:15 CDT CPT-00288 Sono OB comp <14 weeks 15:47:19 WAITER WAITRESS CPT-50423 Visit 13:28:37 CDT CPT-11683 Spec Collection and Handling Fee 12:41:37 CDT CPT-17581 Visit 12:41:07 CDT CPT-77192 Visit 18:48:53 CDT CPT-21299 Visit 16:25:17 CDT CPT-60331 Sono OB comp > 14 weeks 11:38:18 CDT CPT-65184 Visit 13:36:17 CDT CPT-03422 Visit 13:48:22 CDT
--- OUTSIDE RECORDS SUMMARY | 2019-01-13 20:25 | XMS REPORT | Clinical Summary ---
Author Author Admin, MARCO ANTONIO Gardiner [facility] Address Unknown Phone Unavailable Allergies, Adverse [...] Elder Long-term (current) use of other medications Vaginitis 616.10 Active Jacque Blas MD PhD Vaginitis [...] Generic Name NDC Status Provider Patient Instruction CYCLOBENZAPRINE HCL 10 MG TABS 1/2 - 1 tab by mouth three times daily if needed for spasms/pain CYCLOBENZAPRINE HCL 58251449579 Active Jacque Blas MD PhD Active LAMICTAL 25 MG TABS 1 pill by mouth daily x 2 weeks, then 2 pills daily 07/26 LAMOTRIGINE 42579930593 No Longer Active Jacque Blas MD PhD Active LATUDA 40 MG TABS Take one by mouth daily LURASIDONE HCL 08724421613 Active Jacque Blas MD PhD Active HYDROCODONE-ACETAMINOPHEN 7.5-325 MG TABS 1 four times a day as needed for pain HYDROCODONE-ACETAMINOPHEN 53683266418 No Longer Active Jacque Blas MD PhD Active ROBAXIN 500 MG TAB 1-2 pills up to four times daily if needed for muscle spasms METHOCARBAMOL 89097195700 No Longer Active Jacque Blas MD PhD Active CITALOPRAM HYDROBROMIDE 10 MG TABS 1 pill daily, for depression/anxiety 02/09 CITALOPRAM HYDROBROMIDE 12002312554 No Longer Active Jacque Blas MD PhD Active HYDROCODONE-ACETAMINOPHEN 5-325 MG TABS 1 pill three times daily as needed for pain HYDROCODONE-ACETAMINOPHEN 60920504570 No Longer Active Jacque Blas MD PhD Active IBUPROFEN 600 MG TAB 1 pill four times daily, with food IBUPROFEN 09574414091 Active Jacque Blas MD PhD Active TRAMADOL HCL 50 MG TABS 1-2 tablets every 6 hours as needed for pain TRAMADOL HCL 99608455151 No Longer Active Jacque Blas MD PhD Active TYLENOL EXTRA STRENGTH 500 MG TABS 2 @ HS ACETAMINOPHEN 05332303240 No Longer Active Jacque Blas MD PhD Active SERTRALINE HCL 50 MG TABS 1 daily for depression SERTRALINE HCL 54422614065 No Longer Active Jacque Blas MD PhD Active BACTRIM DS 800-160 MG TAB 1 tab by mouth twice daily TRIMETHOPRIM-SULFAMETHOXAZOLE 16030614044 No Longer Active Eva Alejo [employer] Active FLINSTONES GUMMIES OMEGA-3 DHA CHEW Take one by mouth daily PEDIATRIC MULTIPLE VIT-C-FA 30123878444 No Longer Active Jacque Blas MD PhD Active RANITIDINE HCL 150 MG CAPS 1 twice a day RANITIDINE HCL 95934349465 No Longer Active Jacque Blas MD PhD Active PNV-OMEGA 28-0.6-0.4-340 MG CAPS 1 pill by mouth daily PRENAT W/O X-JX-DOWMX-FA-OMEGA 28790508979 No Longer Active Jacque Blas MD PhD Active BACTRIM DS 800-160 MG TAB 1 tab by mouth twice daily TRIMETHOPRIM-SULFAMETHOXAZOLE 50459295808 No Longer Active Jacque Blas MD PhD Active METRONIDAZOLE 250 MG TABS 1 TID METRONIDAZOLE 88478514935 No Longer Active Jacque Blas MD PhD Active TRI-SPRINTEC 0.18/0.215/0.25 MG-35 MCG TABS 1 PO q Day NORGESTIM-ETH ESTRAD TRIPHASIC 98929466498 No Longer Active Jaqcue Blas MD PhD Active ALPRAZOLAM 0.25 MG TABS 1/2 tab to 1 tab PO TID PRN ALPRAZOLAM 05512251733 No Longer Active Jacque Blas MD PhD Active FLUOXETINE HCL 10 MG CAPS 2 PO q AM FLUOXETINE HCL 83134273104 No Longer Active Jacque Blas MD PhD Active ALPRAZOLAM 0.25 MG TABS 1/2 tab to 1 tab PO TID PRN ALPRAZOLAM 0.25 MG TABS 790037 ALPRAZOLAM Inactive TRI-SPRINTEC 0.18/0.215/0.25 MG-35 MCG TABS 1 PO q Day TRI-SPRINTEC 0.18/0.215/0.25 MG-35 MCG TABS 480249 NORGESTIM-ETH ESTRAD TRIPHASIC Inactive PNV-OMEGA 28-0.6-0.4-340 MG CAPS 1 pill by mouth daily PNV-OMEGA 28-0.6-0.4-340 MG CAPS PRENAT W/O M-ED-FLUCD-FA-OMEGA Inactive RANITIDINE HCL 150 MG CAPS 1 twice a day RANITIDINE HCL 150 MG CAPS 327992 RANITIDINE HCL Inactive FLINSTONES GUMMIES OMEGA-3 DHA CHEW Take one by mouth daily FLINSTONES GUMMIES OMEGA-3 DHA CHEW PEDIATRIC MULTIPLE VIT-C-FA Inactive SERTRALINE HCL 50 MG TABS 1 daily for depression SERTRALINE HCL 50 MG TABS 016802 SERTRALINE HCL Inactive TYLENOL EXTRA STRENGTH 500 MG TABS 2 @ HS TYLENOL EXTRA STRENGTH 500 MG TABS 381391 ACETAMINOPHEN Inactive TRAMADOL HCL 50 MG TABS 1-2 tablets every 6 hours as needed for pain TRAMADOL HCL 50 MG TABS 802062 TRAMADOL HCL Inactive HYDROCODONE-ACETAMINOPHEN 5-325 MG TABS 1 pill three times daily as needed for pain HYDROCODONE-ACETAMINOPHEN 5-325 MG TABS 007908 HYDROCODONE-ACETAMINOPHEN Inactive CITALOPRAM HYDROBROMIDE 10 MG TABS 1 pill daily, for depression/anxiety 02/09 CITALOPRAM HYDROBROMIDE 10 MG TABS 958192 CITALOPRAM HYDROBROMIDE Inactive ROBAXIN 500 MG TAB 1-2 pills up to four times daily if needed for muscle spasms ROBAXIN 500 MG TAB 166886 METHOCARBAMOL Inactive HYDROCODONE-ACETAMINOPHEN 7.5-325 MG TABS 1 four times a day as needed for pain HYDROCODONE-ACETAMINOPHEN 7.5-325 MG TABS 503366 HYDROCODONE-ACETAMINOPHEN Inactive LAMICTAL 25 MG TABS 1 pill by mouth daily x 2 weeks, then 2 pills daily 07/26 LAMICTAL 25 MG TABS 261149 LAMOTRIGINE Inactive FLUOXETINE HCL 10 MG CAPS 2 PO q AM FLUOXETINE HCL 10 MG CAPS 237556 FLUOXETINE HCL Inactive METRONIDAZOLE 250 MG TABS 1 TID METRONIDAZOLE 250 MG TABS 702462 METRONIDAZOLE Inactive BACTRIM DS 800-160 MG TAB [...] reduced Diphtheria, and acellular Pertussis Immunization) Adacel [[id number]] tetanus toxoid, reduced diphtheria toxoid, and acellular [...] E&M - 3141-9 208 [lb_av] Weight Measured Diagnostic Results Date Name Value Unit Range Description Lab Report: Chlamydia/GC APTIMA/43659 - Lab chlamydia DNA probe NOT DETECTED NOT DETECTED Lab Report: Chlamydia/GC APTIMA/10792 - Microbiology Neisseria gonorrhoeae DNA probe NOT DETECTED NOT DETECTED Lab Report: CKI, Erythrocyte Sed Rate - Chemistry creatine kinase, serum 63 U/L 26-192 Encounters Code Encounter Date Provider Facility CPT-18545 Level 3 Est. Patient 14:38:20 CDT Jacque Blas MD [facility] CPT-86021 Level 4 Est. Patient 20:19:14 CDT Jacuqe Blas MD [facility] CPT-77732 Level 3 Est. Patient 15:41:32 CDT Jacque Blas MD [facility] CPT-12201 Level 3 Est. Patient 18:02:00 PROPELLER MECHANIC Jacque Blas MD [facility] CPT-05495 Level 3 Est. Patient 21:41:26 PROPELLER MECHANIC Jacque Blas MD [facility] CPT-93261 Level 4 Est. Patient 14:43:47 PROPELLER MECHANIC Jacque Blas MD [facility] CPT-73809 Level 3 Est. Patient 20:16:54 PROPELLER MECHANIC Jacque Blas MD [facility] CPT-79135 Level 3 Est. Patient 13:31:37 CDT Jacque Blas MD [facility] CPT-07391 Level 3 New Patient 18:16:07 CDT Jacque Blas MD [facility] Procedures Code Procedure Name Date Entry Date Standard Description CPT-58159 LS spine comp w obliq 15:53:02 PROPELLER MECHANIC CPT-51747 C-Spine Min 4V 15:53:02 PROPELLER MECHANIC CPT-14412 UHCG (floor use only) 14:15:45 CDT CPT-50555 UHCG (floor use only) 14:09:15 CDT CPT-J7302 Mirena IUD 13:30:58 CDT CPT-72411 Insertion of IUD 13:30:58 CDT CPT-OV Office Visit 13:30:58 CDT CPT-53914 Visit 10:48:09 CDT CPT-44927 Visit 15:34:57 CDT CPT-08478 Visit 15:25:55 CDT CPT-78473 Visit 13:58:45 CDT CPT-86540 Sono OB comp > 14 weeks 16:57:22 CDT CPT-LR Lesion Removal 09:33:27 CDT CPT-02258 Visit 12:50:42 CDT CPT-48657 Visit 18:34:25 CDT CPT-000 Give Appropriate Tetanus Booster 09:16:14 CDT CPT-76539 Administration single or combination vaccine inc oral 11 :36:32 CDT CPT-07043 Tdap 11:36:32 CDT CPT-01513 Visit 09:16:14 CDT CPT-49093 Visit 13:35:24 CDT CPT-72272 Sono OB comp > 14 weeks 11:46:07 CDT CPT-30783 Visit 17:08:15 CDT CPT-61872 Sono OB comp <14 weeks 15:47:19 PROPELLER MECHANIC CPT-75630 Visit 13:28:37 CDT CPT-58758 Spec Collection and Handling Fee 12:41:37 CDT CPT-99718 Visit 12:41:07 CDT CPT-59757 Visit 18:48:53 CDT CPT-51851 Visit 16:25:17 CDT CPT-29432 Sono OB comp > 14 weeks 11:38:18 CDT CPT-59816 Visit 13:36:17 CDT CPT-70399 Visit 13:48:22 CDT
--- OUTSIDE RECORDS SUMMARY | 2019-01-13 20:25 | XMS REPORT | Clinical Summary ---
Author Author Admin, MARCO ANTONIO Gardiner [facility] Address Unknown Phone Unavailable Allergies, Adverse Reactions, Alerts Allergy Name Reaction Description Start Date Severity Status Provider No Known Allergies Cecelia Russell RM Conditions or Problems Problem Name Problem Code [...] Instructions Start Date Stop Date Generic Name [facility] Status Provider Patient Instruction CYCLOBENZAPRINE HCL 10 MG TABS 1/2 - 1 tab by mouth three times daily if needed for spasms/pain CYCLOBENZAPRINE HCL 74342179935 Active Jacque Blas MD PhD Active LAMICTAL 25 MG TABS 1 pill by mouth daily x 2 weeks, then 2 pills daily 07/26 LAMOTRIGINE 92206580949 No Longer Active Jacque Blas MD PhD Active LATUDA 40 MG TABS Take one by mouth daily LURASIDONE HCL 57101166380 Active Jacque Blas MD PhD Active HYDROCODONE-ACETAMINOPHEN 7.5-325 MG TABS 1 four times a day as needed for pain HYDROCODONE-ACETAMINOPHEN 80058072985 No Longer Active aJcque Blas MD PhD Active ROBAXIN 500 MG TAB 1-2 pills up to four times daily if needed for muscle spasms METHOCARBAMOL 74548885601 No Longer Active Jacque Blas MD PhD Active CITALOPRAM HYDROBROMIDE 10 MG TABS 1 pill daily, for depression/anxiety 02/09 CITALOPRAM HYDROBROMIDE 56571215695 No Longer Active Jacque Blas MD PhD Active HYDROCODONE-ACETAMINOPHEN 5-325 MG TABS 1 pill three times daily as needed for pain HYDROCODONE-ACETAMINOPHEN 15105633876 No Longer Active Jacque Blas MD PhD Active IBUPROFEN 600 MG TAB 1 pill four times daily, with food IBUPROFEN 78577349712 Active Jacque Blas MD PhD Active TRAMADOL HCL 50 MG TABS 1-2 tablets every 6 hours as needed for pain TRAMADOL HCL 21815686254 No Longer Active Jacque Blas MD PhD Active TYLENOL EXTRA STRENGTH 500 MG TABS 2 @ HS ACETAMINOPHEN 76866748057 No Longer Active Jacque Blas MD PhD Active SERTRALINE HCL 50 MG TABS 1 daily for depression SERTRALINE HCL 60340652050 No Longer Active Jacque Blas MD PhD Active BACTRIM DS 800-160 MG TAB 1 tab by mouth twice daily TRIMETHOPRIM-SULFAMETHOXAZOLE 84849981587 No Longer Active Eva Alejo CUSTOM STUDIO COORDINATOR Active FLINSTONES GUMMIES OMEGA-3 DHA CHEW Take one by mouth daily PEDIATRIC MULTIPLE VIT-C-FA 70965033698 No Longer Active Jacque Blas MD PhD Active RANITIDINE HCL 150 MG CAPS 1 twice a day RANITIDINE HCL 41282524616 No Longer Active Jacque Blas MD PhD Active PNV-OMEGA 28-0.6-0.4-340 MG CAPS 1 pill by mouth daily PRENAT W/O S-VJ-YTYSI-FA-OMEGA 51436236252 No Longer Active Jacque Blas MD PhD Active BACTRIM DS 800-160 MG TAB 1 tab by mouth twice daily TRIMETHOPRIM-SULFAMETHOXAZOLE 02315521791 No Longer Active Jacque Blas MD PhD Active METRONIDAZOLE 250 MG TABS 1 TID METRONIDAZOLE 86409960405 No Longer Active Jacque Blas MD PhD Active TRI-SPRINTEC 0.18/0.215/0.25 MG-35 MCG TABS 1 PO q Day NORGESTIM-ETH ESTRAD TRIPHASIC 67854491572 No Longer Active Jacque Blas MD PhD Active ALPRAZOLAM 0.25 MG TABS 1/2 tab to 1 tab PO TID PRN ALPRAZOLAM 20741392414 No Longer Active Jacque Blas MD PhD Active FLUOXETINE HCL 10 MG CAPS 2 PO q AM FLUOXETINE HCL 85578359877 No Longer Active Jacque Blas MD PhD Active ALPRAZOLAM 0.25 MG TABS 1/2 tab to 1 tab PO TID PRN ALPRAZOLAM 0.25 MG TABS 019825 ALPRAZOLAM Inactive TRI-SPRINTEC 0.18/0.215/0.25 MG-35 MCG TABS 1 PO q Day TRI-SPRINTEC 0.18/0.215/0.25 MG-35 MCG TABS 815414 NORGESTIM-ETH ESTRAD TRIPHASIC Inactive PNV-OMEGA 28-0.6-0.4-340 MG CAPS 1 pill by mouth daily PNV-OMEGA 28-0.6-0.4-340 MG CAPS PRENAT W/O [id number]-OMEGA Inactive RANITIDINE HCL 150 MG CAPS 1 twice a day RANITIDINE HCL 150 MG CAPS 428068 RANITIDINE HCL Inactive FLINSTONES GUMMIES OMEGA-3 DHA CHEW Take one by mouth daily FLINSTONES GUMMIES OMEGA-3 DHA CHEW PEDIATRIC MULTIPLE VIT-C-FA Inactive SERTRALINE HCL 50 MG TABS 1 daily for depression SERTRALINE HCL 50 MG TABS 785882 SERTRALINE HCL Inactive TYLENOL EXTRA STRENGTH 500 MG TABS 2 @ HS TYLENOL EXTRA STRENGTH 500 MG TABS 349322 ACETAMINOPHEN Inactive TRAMADOL HCL 50 MG TABS 1-2 tablets every 6 hours as needed for pain TRAMADOL HCL 50 MG TABS 427366 TRAMADOL HCL Inactive HYDROCODONE-ACETAMINOPHEN 5-325 MG TABS 1 pill three times daily as needed for pain HYDROCODONE-ACETAMINOPHEN 5-325 MG TABS 575374 HYDROCODONE-ACETAMINOPHEN Inactive CITALOPRAM HYDROBROMIDE 10 MG TABS 1 pill daily, for depression/anxiety 02/09 CITALOPRAM HYDROBROMIDE 10 MG TABS 914618 CITALOPRAM HYDROBROMIDE Inactive ROBAXIN 500 MG TAB 1-2 pills up to four times daily if needed for muscle spasms ROBAXIN 500 MG TAB 907391 METHOCARBAMOL Inactive HYDROCODONE-ACETAMINOPHEN 7.5-325 MG TABS 1 four times a day as needed for pain HYDROCODONE-ACETAMINOPHEN 7.5-325 MG TABS 679205 HYDROCODONE-ACETAMINOPHEN Inactive LAMICTAL 25 MG TABS 1 pill by mouth daily x 2 weeks, then 2 pills daily 07/26 LAMICTAL 25 MG TABS 832693 LAMOTRIGINE Inactive FLUOXETINE HCL 10 MG CAPS 2 PO q AM FLUOXETINE HCL 10 MG CAPS 509191 FLUOXETINE HCL Inactive METRONIDAZOLE 250 MG TABS 1 TID METRONIDAZOLE 250 MG TABS 273380 METRONIDAZOLE Inactive BACTRIM DS 800-160 MG TAB [...] reduced Diphtheria, and acellular Pertussis Immunization) Adacel [CGI091] tetanus toxoid, reduced diphtheria toxoid, and acellular pertussis vaccine, adsorbed hepatitis B vaccine series yes hepatitis B vaccine, unspecified formulation Vital Signs Date Name Value Unit Range Description blood pressure, diastolic - 8462-4 61 mm[Hg] [...] Value Unit Range Description Lab Report: Chlamydia/GC APTIMA/36648 - Lab chlamydia DNA probe NOT DETECTED NOT DETECTED chlamydia DNA probe NOT DETECTED NOT DETECTED Lab Report: Chlamydia/GC APTIMA/78171 - Microbiology Neisseria gonorrhoeae DNA probe NOT DETECTED NOT DETECTED Neisseria gonorrhoeae DNA probe NOT DETECTED NOT DETECTED Lab Report: CKI, Erythrocyte Sed Rate - Chemistry creatine kinase, serum 63 U/L 26-192 Encounters Code Encounter Date Provider Facility [facility]-[id number] Level 4 Est. Patient 17:32:49 CHIEF HYDROELECTRIC STATION OPERATOR Jacque Blas MD [facility]-28933 Level 3 Est. Patient 14:38:20 CDT Jacque Blas MD [facility]-87532 Level 4 Est. Patient 20:19:14 CDT Jacque Blas MD [facility]-55717 Level 3 Est. Patient 15:41:32 CDT Jacque Blas MD [facility]-61556 Level 3 Est. Patient 18:02:00 CHIEF HYDROELECTRIC STATION OPERATOR Jacque Blas MD [facility]-83382 Level 3 Est. Patient 21:41:26 CHIEF HYDROELECTRIC STATION OPERATOR Jacque Blas MD [facility]-13074 Level 4 Est. Patient 14:43:47 CHIEF HYDROELECTRIC STATION OPERATOR Jacque Blas MD [facility]45671 Level 3 Est. Patient 20:16:54 CHIEF HYDROELECTRIC STATION OPERATOR Jacque Blas MD [facility]-39517 Level 3 Est. Patient 13:31:37 CDT Jacque Blas MD PhD [facility] CPT-39727 Level 3 New Patient 18:16:07 CDT Jacque Blas MD PhD [facility] Procedures Code Procedure Name Date Entry Date Standard Description CPT-53104 LS spine comp w obliq 15:53:02 CHIEF HYDROELECTRIC STATION OPERATOR CPT-70686 C-Spine Min 4V 15:53:02 CHIEF HYDROELECTRIC STATION OPERATOR CPT-47950 UHCG (floor use only) 14:15:45 CDT CPT-22679 UHCG (floor use only) 14:09:15 CDT CPT-J7302 Mirena IUD 13:30:58 CDT CPT-57133 Insertion of IUD 13:30:58 CDT CPT-OV Office Visit 13:30:58 CDT CPT-48861 Visit 10:48:09 CDT CPT-03297 Visit 15:34:57 CDT CPT-25723 Visit 15:25:55 CDT CPT-12888 Visit 13:58:45 CDT CPT-54304 Sono OB comp > 14 weeks 16:57:22 CDT CPT-LR Lesion Removal 09:33:27 CDT CPT-92445 Visit 12:50:42 CDT CPT-19525 Visit 18:34:25 CDT CPT-000 Give Appropriate Tetanus Booster 09:16:14 CDT CPT-69013 Administration single or combination vaccine inc oral 11 :36:32 CDT CPT-84453 Tdap 11:36:32 CDT CPT-64424 Visit 09:16:14 CDT CPT-44957 Visit 13:35:24 CDT CPT-68663 Sono OB comp > 14 weeks 11:46:07 CDT CPT-93960 Visit 17:08:15 CDT CPT-85378 Sono OB comp <14 weeks 15:47:19 CHIEF HYDROELECTRIC STATION OPERATOR CPT-97644 Visit 13:28:37 CDT CPT-66416 Spec Collection and Handling Fee 12:41:37 CDT CPT-53513 Visit 12:41:07 CDT CPT-54946 Visit 18:48:53 CDT CPT-34475 Visit 16:25:17 CDT CPT-00061 Sono OB comp > 14 weeks 11:38:18 CDT CPT-81694 Visit 13:36:17 CDT CPT-39299 Visit 13:48:22 CDT
--- OUTSIDE RECORDS SUMMARY | 2019-01-13 20:25 | XMS REPORT ---
Author Author [facility] Medical Staff Organization [facility] Address [address] [place], [place] [address] Phone [phone] Care Team Providers Care Baseball Hand Sewer Name Role Phone RAMSES MENDOZA, EDDY PP [phone] Summary purpose TRANSITION OF CARE AUTO GENERATION Chief Complaint and Reason for Visit Admit Diagnosis 1 DYSURIA Problem list No authorized problems tracked for [...] Relevant diagnostic tests and/or laboratory data RESULTS Routine Urinalysis [id number]:45:00 Result Normal Range Units Color YELLOW Clarity Clear Specific Hope 1.025 1.003-1.035 pH 7.0 4.5-8.0 Glucose NEGATIVE Bilirubin NEGATIVE Ketones NEGATIVE Protein NEGATIVE Urobilinogen 0.2 0-0.2 E.U./dL Nitrites NEGATIVE Blood NEGATIVE Leukocytes NEGATIVE WBCs No WBC's Seen RBCs 0-5 Squamous Epithelial 1+ Bacteria Rare Amount Body Fluid [id number]:45:00 Result Normal Range Units pH 7.0 4.5-8.0 History of procedures Procedure Code Code Type Description Date Performed Performing Physician 74620 CPT-4 URINALYSIS, AUTO W/SCOPE 09-14-2014 [facility] ASENCIO 77366 CPT-4 URINE TEST 09-14-2014 [facility] 80167 CPT-4 EMERGENCY DEPT VISIT 09-14-2014 [facility] 63221 CPT-4 EMERGENCY DEPT VISIT 09-14-2014 [facility] AS[facility]IO Functional status No functional or cognitive status observations are available for this visit. Vital signs Type Value Date Respiration Rate 20breaths per minute [id number]:00 Pulse 96beats per minute 71-10-323865:00 Oxygen Saturation 100% :00 BP Systolic 140mmHg :00 BP Diastolic 70mmHg :00 Temperature 98.4F :00 Weight 157LB :40 Social history Type Value Smoking Status CURRENT EVERY DAY SMOKER Treatment Plan No treatment plan text is available for this visit. Hospital discharge instructions Dismissal Condition good Disposition on DC home DC Inst/Educ Give yes Med/Side Effects Rev yes
--- OUTSIDE RECORDS SUMMARY | 2019-01-13 20:26 | XMS REPORT | Clinical Summary ---
Author Author Admin, MARCO ANTONIO Gardiner [facility] Address Unknown Phone Allergies, Adverse Reactions, Alerts Allergy Name Reaction Description Start Date Severity Status Provider No Known Allergies Cecelia Russell [facility] Conditions or Problems Problem Name Problem [...] pill daily, for depression/anxiety 02/09 CITALOPRAM HYDROBROMIDE 26128712233 Active Jacque Blas MD PhD Active HYDROCODONE-ACETAMINOPHEN 7.5-325 MG TABS 1 four times a day as needed for pain HYDROCODONE-ACETAMINOPHEN 64081091093 Active Bruce Vicente MD Active HYDROCODONE-ACETAMINOPHEN 5-325 MG TABS 1 pill three times daily as needed for pain HYDROCODONE-ACETAMINOPHEN 31300241933 No Longer Active Jacque Blas MD PhD Active ROBAXIN 500 MG TAB 1-2 pills up to four times daily if needed for muscle spasms METHOCARBAMOL 76625397588 Active Jacque Blas MD PhD Active IBUPROFEN 600 MG TAB 1 pill four times daily, with food IBUPROFEN 68469442589 Active Jacque Blas MD PhD Active TRAMADOL HCL 50 MG TABS 1-2 tablets every 6 hours as needed for pain TRAMADOL HCL 89668312214 No Longer Active Jacque Blas MD PhD Active TYLENOL EXTRA STRENGTH 500 MG TABS 2 @ HS ACETAMINOPHEN 14665944200 No Longer Active Jacque Blas MD PhD Active SERTRALINE HCL 50 MG TABS 1 daily for depression SERTRALINE HCL 96197186476 No Longer Active Jacque Blas MD PhD Active BACTRIM DS 800-160 MG TAB 1 tab by mouth twice daily TRIMETHOPRIM-SULFAMETHOXAZOLE 25930636276 No Longer Active Eva Alejo APRN Active FLINSTONES GUMMIES OMEGA-3 DHA CHEW Take one by mouth daily PEDIATRIC MULTIPLE VIT-C-FA 85928733452 No Longer Active Jacque Blas MD PhD Active RANITIDINE HCL 150 MG CAPS 1 twice a day RANITIDINE HCL 40425849694 No Longer Active Jacque Blas MD PhD Active PNV-OMEGA 28-0.6-0.4-340 MG CAPS 1 pill by mouth daily PRENAT W/O Y-HR-MBEIC-FA-OMEGA 36806307718 No Longer Active Jacque Blas MD PhD Active BACTRIM DS 800-160 MG TAB 1 tab by mouth twice daily TRIMETHOPRIM-SULFAMETHOXAZOLE 12224871003 No Longer Active Jacque Blas MD PhD Active METRONIDAZOLE 250 MG TABS 1 TID METRONIDAZOLE 16706426795 No Longer Active Jacque Blas MD PhD Active TRI-SPRINTEC 0.18/0.215/0.25 MG-35 MCG TABS 1 PO q Day NORGESTIM-ETH ESTRAD TRIPHASIC 17265003951 No Longer Active Jacque Blas MD PhD Active ALPRAZOLAM 0.25 MG TABS 1/2 tab to 1 tab PO TID PRN ALPRAZOLAM 48804517109 No Longer Active Jacque Blas MD PhD Active FLUOXETINE HCL 10 MG CAPS 2 PO q AM FLUOXETINE HCL 74122835229 No Longer Active Jacque Blas MD PhD Active ALPRAZOLAM 0.25 MG TABS 1/2 tab to 1 tab PO TID PRN ALPRAZOLAM 0.25 MG TABS 317246 ALPRAZOLAM Inactive TRI-SPRINTEC 0.18/0.215/0.25 MG-35 MCG TABS 1 PO q Day TRI-SPRINTEC 0.18/0.215/0.25 MG-35 MCG TABS 054854 NORGESTIM-ETH ESTRAD TRIPHASIC Inactive PNV-OMEGA 28-0.6-0.4-340 MG CAPS 1 pill by mouth daily PNV-OMEGA 28-0.6-0.4-340 MG CAPS PRENAT W/O G-[id number]-DLAMM-FA-OMEGA Inactive RANITIDINE HCL 150 MG CAPS 1 twice a day RANITIDINE HCL 150 MG CAPS 455303 RANITIDINE HCL Inactive FLINSTONES GUMMIES OMEGA-3 DHA CHEW Take one by mouth daily FLINSTONES GUMMIES OMEGA-3 DHA CHEW PEDIATRIC MULTIPLE VIT-C-FA Inactive SERTRALINE HCL 50 MG TABS 1 daily for depression SERTRALINE HCL 50 MG TABS 361056 SERTRALINE HCL Inactive TYLENOL EXTRA STRENGTH 500 MG TABS 2 @ HS TYLENOL EXTRA STRENGTH 500 MG TABS 509264 ACETAMINOPHEN Inactive TRAMADOL HCL 50 MG TABS 1-2 tablets every 6 hours as needed for pain TRAMADOL HCL 50 MG TABS 015807 TRAMADOL HCL Inactive HYDROCODONE-ACETAMINOPHEN 5-325 MG TABS 1 pill three times daily as needed for pain HYDROCODONE-ACETAMINOPHEN 5-325 MG TABS 872694 HYDROCODONE-ACETAMINOPHEN Inactive FLUOXETINE HCL 10 MG CAPS 2 PO q AM FLUOXETINE HCL 10 MG CAPS 447711 FLUOXETINE HCL Inactive METRONIDAZOLE 250 MG TABS 1 TID METRONIDAZOLE 250 MG TABS 162736 METRONIDAZOLE Inactive BACTRIM DS 800-160 MG TAB 1 tab by mouth twice daily BACTRIM DS 800-160 MG TAB TRIMETHOPRIM-SULFAMETHOXAZOLE Inactive BACTRIM DS 800-160 MG TAB 1 tab by mouth twice daily BACTRIM DS 800-160 MG TAB TRIMETHOPRIM-SULFAMETHOXAZOLE Inactive Advance Directives Directive Description Start Date PERMISSION TO SHARE Immunizations Vaccine Administration Date Value Standard Description Adacel (Tetanus, reduced Diphtheria, and acellular Pertussis Immunization) Adacel [IRC201] tetanus toxoid, reduced diphtheria toxoid, and acellular [...] pressure, diastolic - 8462-4 73 mm[Hg] BP sellesr blood pressure, systolic - 8480-6 103 mm[Hg] [...] E&M - 3141-9 230 [lb_av] Weight Measured blood pressure, diastolic - 8462-4 80 mm[Hg] BP sellers blood pressure, systolic - 8480-6 122 mm[Hg] BP sys height E&M - 8302-2 65 [in_us] Bdy height pulse rate E&M - 8867-4 111 /min Heart rate temperature E&M 97.9 [degF] Body temperature weight E&M - 3141-9 260 [lb_av] Weight Measured blood pressure, diastolic - 8462-4 71 mm[Hg] BP sellers blood pressure, systolic - 8480-6 103 mm[Hg] BP sys height E&M - 8302-2 65 [in_us] Bdy height pulse rate E&M - 8867-4 106 /min Heart rate temperature E&M 98.7 [degF] Body temperature weight E&M - 3141-9 257.6 [lb_av] Weight Measured blood pressure, diastolic - 8462-4 82 mm[Hg] BP sellers blood pressure, systolic - 8480-6 133 mm[Hg] BP sys height E&M - 8302-2 65 [in_us] Bdy height pulse rate E&M - 8867-4 106 /min Heart rate temperature E&M 97.9 [degF] Body temperature weight E&M - 3141-9 252 [lb_av] Weight Measured blood pressure, diastolic - 8462-4 78 mm[Hg] BP sellers blood pressure, systolic - 8480-6 123 mm[Hg] BP sys height E&M - 8302-2 65 [in_us] Bdy height pulse rate E&M - 8867-4 108 /min Heart rate temperature E&M 99 [degF] Body temperature weight E&M - 3141-9 245 [lb_av] Weight Measured blood pressure, diastolic - 8462-4 76 mm[Hg] BP sellers blood pressure, systolic - 8480-6 117 mm[Hg] BP sys height E&M - 8302-2 65 [in_us] Bdy height pulse rate E&M - 8867-4 67 /min Heart rate temperature E&M 98.0 [degF] Body temperature weight E&M - 3141-9 245.38 [lb_av] Weight Measured Diagnostic Results Date Name Value Unit Range Description Lab Report: Chlamydia/GC APTIMA/87683 - Lab chlamydia DNA probe NOT DETECTED NOT DETECTED Lab Report: Chlamydia/GC APTIMA/80149 - Microbiology Neisseria gonorrhoeae DNA probe NOT [...] urine, semiquantitative N Office Visit: OB Visit 32 week, heartburn [...] negative Encounters Code Encounter Date Provider Facility CPT-46198 Level 3 Est. Patient 15:41:32 CDT Jacque Blas MD PhD [facility] CPT-67420 Level 3 Est. Patient 18:02:00 MEDICAL PATHOLOGY TEACHER Jacque Blas MD PhD [facility] CPT-24478 Level 3 Est. Patient 21:41:26 MEDICAL PATHOLOGY TEACHER Jacque Blas MD [facility] CPT-33504 Level 4 Est. Patient 14:43:47 MEDICAL PATHOLOGY TEACHER Jacque Blas MD [facility] CPT-78105 Level 3 Est. Patient 20:16:54 MEDICAL PATHOLOGY TEACHER Jacque Blas MD [facility] CPT-05445 Level 3 Est. Patient 13:31:37 CDT Jacque Blas MD [facility] CPT-05093 Level 3 New Patient 18:16:07 CDT Jacque Blas MD [facility] Procedures Code Procedure Name Date Entry Date Standard Description CPT-93137 LS spine comp w obliq 15:53:02 MEDICAL PATHOLOGY TEACHER CPT-27957 C-Spine Min 4V 15:53:02 MEDICAL PATHOLOGY TEACHER CPT-07163 UHCG (floor use only) 14:15:45 CDT CPT-80496 UHCG (floor use only) 14:09:15 CDT CPT-J7302 Mirena IUD 13:30:58 CDT CPT-75779 Insertion of IUD 13:30:58 CDT CPT-OV Office Visit 13:30:58 CDT CPT-08399 Visit 10:48:09 CDT CPT-68544 Visit 15:34:57 CDT CPT-53766 Visit 15:25:55 CDT CPT-71442 Visit 13:58:45 CDT CPT-11388 Sono OB comp > 14 weeks 16:57:22 CDT CPT-LR Lesion Removal 09:33:27 CDT CPT-08574 Visit 12:50:42 CDT CPT-19104 Visit 18:34:25 CDT CPT-000 Give Appropriate Tetanus Booster 09:16:14 CDT CPT-91523 Administration single or combination vaccine inc oral 11 :36:32 CDT CPT-40456 Tdap 11:36:32 CDT CPT-18750 Visit 09:16:14 CDT CPT-23125 Visit 13:35:24 CDT CPT-84114 Sono OB comp > 14 weeks 11:46:07 CDT CPT-94960 Visit 17:08:15 CDT CPT-23877 Sono OB comp <14 weeks 15:47:19 MEDICAL PATHOLOGY TEACHER CPT-63111 Visit 13:28:37 CDT CPT-30651 Spec Collection and Handling Fee 12:41:37 CDT CPT-15300 Visit 12:41:07 CDT CPT-37737 Visit 18:48:53 CDT CPT-83665 Visit 16:25:17 CDT CPT-06562 Sono OB comp > 14 weeks 11:38:18 CDT CPT-57207 Visit 13:36:17 CDT CPT-88340 Visit 13:48:22 CDT
--- OUTSIDE RECORDS SUMMARY | 2019-01-13 20:27 | XMS REPORT | Clinical Summary ---
Author Author Admin, MARCO ANTONIO Gardiner [facility] Address Unknown Phone Allergies, Adverse Reactions, Alerts Allergy Name Reaction Description Start Date Severity Status Provider No Known Allergies Cecelia Russell [facility] Conditions or Problems Problem Name Problem [...] pill daily, for depression/anxiety 02/09 CITALOPRAM HYDROBROMIDE 67449533586 Active Jacque Blas MD PhD Active HYDROCODONE-ACETAMINOPHEN 7.5-325 MG TABS 1 four times a day as needed for pain HYDROCODONE-ACETAMINOPHEN 94223194268 Active Jacque Blas MD PhD Active HYDROCODONE-ACETAMINOPHEN 5-325 MG TABS 1 pill three times daily as needed for pain HYDROCODONE-ACETAMINOPHEN 12933844900 No Longer Active Jacque Blas MD PhD Active ROBAXIN 500 MG TAB 1-2 pills up to four times daily if needed for muscle spasms METHOCARBAMOL 49661625924 Active Jacque Blas MD PhD Active IBUPROFEN 600 MG TAB 1 pill four times daily, with food IBUPROFEN 11850678956 Active Jacque Blas MD PhD Active TRAMADOL HCL 50 MG TABS 1-2 tablets every 6 hours as needed for pain TRAMADOL HCL 95525914500 No Longer Active Jacque Blas MD PhD Active TYLENOL EXTRA STRENGTH 500 MG TABS 2 @ HS ACETAMINOPHEN 49041002747 No Longer Active Jacque Blas MD PhD Active SERTRALINE HCL 50 MG TABS 1 daily for depression SERTRALINE HCL 52601128771 No Longer Active Jacque Blas MD PhD Active BACTRIM DS 800-160 MG TAB 1 tab by mouth twice daily TRIMETHOPRIM-SULFAMETHOXAZOLE 96366128783 No Longer Active Eva Alejo APRN Active FLINSTONES GUMMIES OMEGA-3 DHA CHEW Take one by mouth daily PEDIATRIC MULTIPLE VIT-C-FA 49288972374 No Longer Active Jacque Blas MD PhD Active RANITIDINE HCL 150 MG CAPS 1 twice a day RANITIDINE HCL 99088246135 No Longer Active Jacque Blas MD PhD Active PNV-OMEGA 28-0.6-0.4-340 MG CAPS 1 pill by mouth daily PRENAT W/O Q-MC-YPORJ-FA-OMEGA 63901016843 No Longer Active Jacque Blas MD PhD Active BACTRIM DS 800-160 MG TAB 1 tab by mouth twice daily TRIMETHOPRIM-SULFAMETHOXAZOLE 75083775813 No Longer Active Jacque Blas MD PhD Active METRONIDAZOLE 250 MG TABS 1 TID METRONIDAZOLE 06973637934 No Longer Active Jacque Blas MD PhD Active TRI-SPRINTEC 0.18/0.215/0.25 MG-35 MCG TABS 1 PO q Day NORGESTIM-ETH ESTRAD TRIPHASIC 49262009812 No Longer Active Jacque Blas MD PhD Active ALPRAZOLAM 0.25 MG TABS 1/2 tab to 1 tab PO TID PRN ALPRAZOLAM 86837633190 No Longer Active Jacque Blas MD PhD Active FLUOXETINE HCL 10 MG CAPS 2 PO q AM FLUOXETINE HCL 11874923595 No Longer Active Jacque Blas MD PhD Active ALPRAZOLAM 0.25 MG TABS 1/2 tab to 1 tab PO TID PRN ALPRAZOLAM 0.25 MG TABS 644703 ALPRAZOLAM Inactive TRI-SPRINTEC 0.18/0.215/0.25 MG-35 MCG TABS 1 PO q Day TRI-SPRINTEC 0.18/0.215/0.25 MG-35 MCG TABS 655156 NORGESTIM-ETH ESTRAD TRIPHASIC Inactive PNV-OMEGA 28-0.6-0.4-340 MG CAPS 1 pill by mouth daily PNV-OMEGA 28-0.6-0.4-340 MG CAPS PRENAT W/O Y-[id number]-FA-OMEGA Inactive RANITIDINE HCL 150 MG CAPS 1 twice a day RANITIDINE HCL 150 MG CAPS 950102 RANITIDINE HCL Inactive FLINSTONES GUMMIES OMEGA-3 DHA CHEW Take one by mouth daily FLINSTONES GUMMIES OMEGA-3 DHA CHEW PEDIATRIC MULTIPLE VIT-C-FA Inactive SERTRALINE HCL 50 MG TABS 1 daily for depression SERTRALINE HCL 50 MG TABS 130038 SERTRALINE HCL Inactive TYLENOL EXTRA STRENGTH 500 MG TABS 2 @ HS TYLENOL EXTRA STRENGTH 500 MG TABS 414487 ACETAMINOPHEN Inactive TRAMADOL HCL 50 MG TABS 1-2 tablets every 6 hours as needed for pain TRAMADOL HCL 50 MG TABS 529618 TRAMADOL HCL Inactive HYDROCODONE-ACETAMINOPHEN 5-325 MG TABS 1 pill three times daily as needed for pain HYDROCODONE-ACETAMINOPHEN 5-325 MG TABS 820875 HYDROCODONE-ACETAMINOPHEN Inactive FLUOXETINE HCL 10 MG CAPS 2 PO q AM FLUOXETINE HCL 10 MG CAPS 129798 FLUOXETINE HCL Inactive METRONIDAZOLE 250 MG TABS 1 TID METRONIDAZOLE 250 MG TABS 982428 METRONIDAZOLE Inactive BACTRIM DS 800-160 MG TAB 1 tab by mouth twice daily BACTRIM DS 800-160 MG TAB TRIMETHOPRIM-SULFAMETHOXAZOLE Inactive BACTRIM DS 800-160 MG TAB 1 tab by mouth twice daily BACTRIM DS 800-160 MG TAB TRIMETHOPRIM-SULFAMETHOXAZOLE Inactive Advance Directives Directive Description Start Date PERMISSION TO SHARE Immunizations Vaccine Administration Date Value Standard Description Adacel immunization Adacel [HDN459] tetanus toxoid, reduced diphtheria toxoid, and acellular [...] serum NO ANTIBODIES DETECTED Lab Report: Chlamydia/GC APTIMA/23962 - Lab chlamydia DNA probe NOT DETECTED NOT DETECTED Lab Report: Chlamydia/GC APTIMA/79437 - Microbiology Neisseria gonorrhoeae DNA probe NOT [...] negative Encounters Code Encounter Date Provider Facility CPT-46644 Level 3 Est. Patient 15:41:32 CDT Jacque Blas MD [facility] CPT-68496 Level 3 Est. Patient 18:02:00 HOUSEKEEPER SUPERVISOR Jacque Blas MD [facility] CPT-57635 Level 3 Est. Patient 21:41:26 HOUSEKEEPER SUPERVISOR Jacque Blas MD [facility] CPT-78022 Level 4 Est. Patient 14:43:47 HOUSEKEEPER SUPERVISOR Jacque Blas MD [facility] CPT-95769 Level 3 Est. Patient 20:16:54 HOUSEKEEPER SUPERVISOR Jacuqe Blas MD [facility] CPT-24006 Level 3 Est. Patient 13:31:37 CDT Jacque Blas MD [facility] CPT-54769 Level 3 New Patient 18:16:07 CDT Jacque Blas MD [facility] Procedures Code Procedure Name Date Entry Date Standard Description CPT-48917 LS spine comp w obliq 15:53:02 HOUSEKEEPER SUPERVISOR CPT-51077 C-Spine Min 4V 15:53:02 HOUSEKEEPER SUPERVISOR CPT-80816 UHCG (floor use only) 14:15:45 CDT CPT-59713 UHCG (floor use only) 14:09:15 CDT CPT-J7302 Mirena IUD 13:30:58 CDT CPT-42541 Insertion of IUD 13:30:58 CDT CPT-OV Office Visit 13:30:58 CDT CPT-63024 Visit 10:48:09 CDT CPT-11683 Visit 15:34:57 CDT CPT-50990 Visit 15:25:55 CDT CPT-16084 Visit 13:58:45 CDT CPT-35312 Sono OB comp > 14 weeks 16:57:22 CDT CPT-LR Lesion Removal 09:33:27 CDT CPT-51276 Visit 12:50:42 CDT CPT-25633 Visit 18:34:25 CDT CPT-000 Give Appropriate Tetanus Booster 09:16:14 CDT CPT-57770 Administration single or combination vaccine inc oral 11 :36:32 CDT CPT-95684 Tdap 11:36:32 CDT CPT-35206 Visit 09:16:14 CDT CPT-86752 Visit 13:35:24 CDT CPT-86036 Sono OB comp > 14 weeks 11:46:07 CDT CPT-37881 Visit 17:08:15 CDT CPT-44577 Sono OB comp <14 weeks 15:47:19 HOUSEKEEPER SUPERVISOR CPT-16371 Visit 13:28:37 CDT CPT-94185 Spec Collection and Handling Fee 12:41:37 CDT CPT-15710 Visit 12:41:07 CDT CPT-68302 Visit 18:48:53 CDT CPT-72775 Visit 16:25:17 CDT CPT-99014 Sono OB comp > 14 weeks 11:38:18 CDT CPT-38431 Visit 13:36:17 CDT CPT-41959 Visit 13:48:22 CDT
--- OUTSIDE RECORDS SUMMARY | 2019-01-13 20:27 | XMS REPORT ---
Author Author [facility] [employer] [facility] Medical Staff Organization [facility] Address [address], [place] [id number] Phone [phone] Care Team Providers Care Grated Cheese Maker Name Role Phone RAMSES MENDOZA, EDDY PP [phone] Summary purpose TRANSITION OF CARE AUTO GENERATION Chief Complaint and Reason for Visit Admit Diagnosis 1 ABDOMINAL PAIN, UNSPECIF Problem list No authorized problems tracked for [...] tests and/or laboratory data RESULTS Routine Urinalysis 09-97-140840:30:00 Result Normal Range Units Color YELLOW Clarity Hazy Specific [place] 1.015 1.003-1.035 pH 8.0 4.5-8.0 Glucose NEGATIVE Bilirubin NEGATIVE Ketones NEGATIVE Protein NEGATIVE Urobilinogen 0.2 0-0.2 E.U./dL Nitrites NEGATIVE Blood NEGATIVE Leukocytes 1+ Culture Set WBCs Too numerous to count RBCs 0-5 Squamous Epithelial 2+ Bacteria 1+ Trichomonas 1+ Routine Cultures [id number]:30:00 Urine Culture Plate Date and Time 01/15/2015 23:06 SourceURINE CULTURE REPORT 50,000 colonies/ml Mixed Gram Pos Sanjana Release Date/Time: 01/17/2015 07:10 CULTURE REPORT 50,000 colonies/ml Mixed Gram Pos Sanjana Release Date/Time: 01/18/2015 07:17 Chemistry [id number]:20:00 Result Normal Range Units Sodium 139 134-145 mEq/l Potassium 3.9 3.5-5.1 mEq/l Chloride 104 98-107 mEq/l CO2 H 29.2 22-28 mEq/l Glucose 85 70-105 mg/dl BUN 11 7-18 mg/dl Creatinine 0.87 0.6-1.0 mg/dl Calcium L 8.3 8.4-10.2 mg/dl TP - Total Protein 7.5 6.0-8.3 g/dl Albumin 3.9 3.5-5 g/dl Bilirubin - Total 0.2 0.1-1.0 mg/dl AST 19 10-42 IU/L ALT 16 12-65 IU/L ALP 72 25-72 IU/L Osmolality L 276.2 280-300 mOsm/L Albumin/Globulin Ratio 1.1 0-8 Anion GAP L 5.8 8-16 BUN/Creatinine Ratio 12.6 10-20 Estimated GFR 80 >=60 mL/min/1.7 Hematology [id number]:20:00 Result Normal Range Units WBC 8.8 4.8-10.8 103/uL RBC 4.3 4.2-5.4 106/uL HGB 12.9 12.0-16.0 g/dl HCT 38.7 36.9-47.0 % MCV 89.8 81-99 FL MCH 29.9 27-31 pg MCHC 33.3 33-37 g/dl RDW 12.7 11.5-15.5 % PLT 328 130-400 103/uL MPV 10.0 7.3-10.4 FL Neutro % 49.9 40-70 % Lymph % H 41.0 20-40 % Perkins % 7.0 0-10.0 % Eos % 1.6 0-7.0 % Baso % 0.5 0-2 % Neutro # 4.4 1.5-7.5 103/uL Lymph # 3.6 0.9-4.0 103/uL Perkins # 0.6 0-0.8 103/uL Eos # 0.1 0-0.6 103/uL Baso # 0.0 0-0.1 103/uL Special Chemistry [id number]:30:00 Result Normal Range Units HCG (Qualitative) Negative Body Fluid :30:00 Result Normal Range Units pH 8.0 4.5-8.0 Hematology - Other (Misc) [id number]:20:00 Result Normal Range Units Sed Rate 7 0-20 Radiology Results 17-79-121202:35:00 Abdomen 2 View PACs Image DATE OF EXAM: Jan 15 2015 RAD 0037-ABDOMEN 2 VIEW : RADIOLOGY REPORT DATE OF SERVICE:01/15/15 HISTORY:Patient has acute abdominal pain. ABDOMEN 2 VIEWS 2310 HOURS Abundant fecal material scattered in the colon. No fluid levels are seen. Gas pattern is otherwise normal. IUD structure is seen in the upper central pelvis. Probable vascular calcium is seen in the lower left pelvis. IMPRESSION:Abundant fecal loading of the colon. Otherwise negative study. Mary Howard DO MW/pb 01/16/2015 08:26: / 01/16/2015 13:35:19 cc: This document has been electronically Signed by: On: DATE OF EXAM: Jan 15 2015 RAD 0037-ABDOMEN 2 VIEW : RADIOLOGY REPORT DATE OF SERVICE:01/15/15 HISTORY:Patient has acute abdominal pain. ABDOMEN 2 VIEWS 2310 HOURS Abundant fecal material scattered in the colon. No fluid levels are seen. Gas pattern is otherwise normal. IUD structure is seen in the upper central pelvis. Probable vascular calcium is seen in the lower left pelvis. IMPRESSION:Abundant fecal loading of the colon. Otherwise negative study. Mary Howard DO MW/pb 01/16/2015 08:26: / 01/16/2015 13:35:19 cc: This document has been electronically Signed by: MARY HOWARD DO On: Jan 17 2015 12:35P Result Amended on 2015-01-17 at 12:35:08. Previous status was NV. [id number]:20:00 Result Normal Range Units MPV 10.0 7.3-10.4 FL History of procedures Procedure Code Code Type Description Date Performed Performing Physician 89979 CPT-4 COMPLETE CBC W/AUTO DIFF WBC 01-15-2015 FCO AESNCIO 58388 CPT-4 CHORIONIC GONADOTROPIN ASSAY 01-15-2015 FCO ASENCIO 69440 CPT-4 RBC SED RATE, NONAUTOMATED 01-15-2015 FCO LANGR 01295 CPT-4 COMPREHEN METABOLIC PANEL 01-15-2015 FCO ASENCIO 37700 CPT-4 URINALYSIS, AUTO W/SCOPE 01-15-2015 FCO ASENCIO 82514 CPT-4 X-RAY EXAM OF ABDOMEN 01-15-2015 FCO ASENCIO 50891 CPT-4 URINE CULTURE/COLONY COUNT 01-15-2015 FCO ASENCIO 14108 CPT-4 ROUTINE VENIPUNCTURE 01-15-2015 FCO ASENCIO 15042 CPT-4 EMERGENCY DEPT VISIT 01-15-2015 FCO ASENCIO 85529 CPT-4 EMERGENCY DEPT VISIT 01-15-2015 FCO ASENCIO 00409 CPT-4 THER/PROPH/DIAG INJ, IV PUSH 01-15-2015 [facility] ASENCIO 53546 CPT-4 TX/PRO/DX INJ NEW DRUG ADDON 01-15-2015 [facility] ASENCIO J1980 CPT-4 HYOSCYAMINE SULFATE INJ 01-15-2015 FCO ASENCIO J7120 CPT-4 RINGERS LACTATE INFUSION 01-15-2015 FCO ASENCIO J2405 CPT-4 ONDANSETRON HCL INJECTION 01-16-2015 [facility]CO ASENCIO Functional status Functional Status Finding Observation Time Diet regular :55 Abdomen Appearance flat :55 Abdomen soft :55 Bowel Sounds present :55 Urination frequency :55 Quality sym/unlabored :55 Cough absent :55 Breath Sounds RUL clear :55 Breath Sounds RML clear :55 Breath Sounds RLL clear :55 Breath Sounds SINGH clear :55 Breath Sounds LLL clear :55 Oxygen no [id number]:01 Temp >100.4 no :55 Temp <96.8 no :55 Chills with rigors no :55 HR > 90bpm no :55 Respirations > 20 no :55 Systolic <90 no :55 headache stiff neck no :55 Rapid Resp no :55 IV Site Location r hand :15 IV Type peripheral :15 IV Site Information discontinued 06-66-682409:10 IV Site Start Attmpt 1 times :15 IV Site Isai 20 36-35-367439:15 IV Site Appearance WNL :15 IV Site Color clear :10 IV Site Patent yes :15 Dressing Type occlusive :15 Nursing Note dc inst discussed with pt. dcd to home with script in good condition :12 Vital signs Type Value Date Respiration Rate 18breaths per minute :01 Pulse 88beats per minute :01 Oxygen Saturation 100% :01 BP Systolic 124mmHg :01 BP Diastolic 78mmHg :01 Temperature 98.5F 35-49-781250:01 Social history Type Value Smoking Status CURRENT EVERY DAY SMOKER Treatment Plan No treatment plan text is available for this visit. Hospital discharge instructions Dismissal Condition good Disposition on DC home DC Inst/Educ Give yes Med/Side Effects Rev yes PNE Vac none Flu Vac none Tetanus Vac none
--- OUTSIDE RECORDS SUMMARY | 2019-01-13 20:27 | XMS REPORT | Clinical Summary ---
Author Author Admin, MARCO ANTONIO Gardiner [facility] Address Unknown Phone Unavailable Allergies, Adverse Reactions, Alerts Allergy Name Reaction Description Start Date Severity Status Provider No Known Allergies Cecelia Russell RMA Conditions or Problems Problem Name Problem Code [...] of intrauterine contraceptive device Vaginal discharge 623.5 Active Chloe Wagner MD Leukorrhea, not specified as infective Drug abuse, hx of V15.89 Active Chloe Wagner MD Other specified personal history presenting hazards to health Std screening V74.5 Active Chloe Wagner MD Screening examination for venereal disease Vaccine against influenza V04.8 Active Chloe Wagner MD Need for prophylactic vaccination and inoculation against other viral diseases , NORMAL ICD-V22.2 Inactive Jacque Blas MD [...] Generic Name NDC Status Provider Patient Instruction BACTRIM DS 800-160 MG ORAL TABS one tab PO BID x 3 days SULFAMETHOXAZOLE-TRIMETHOPRIM 77854133563 No Longer Active Chloe Wagner MD Active FLAGYL 500 MG ORAL TABS four tabs PO x 1 METRONIDAZOLE 65543741101 Active Chloe Wagner MD Active METHOCARBAMOL 500 MG ORAL TABS 1 pill by mouth up to four times daily if needed for muscle spasm/pain METHOCARBAMOL 50497573609 Active Jacque Blas MD PhD Active CYCLOBENZAPRINE HCL 10 MG TABS 1/2 - 1 tab by mouth three times daily if needed for spasms/pain CYCLOBENZAPRINE HCL 24510199463 Active Jacque Blas MD PhD Active LAMICTAL 25 MG TABS 1 pill by mouth daily x 2 weeks, then 2 pills daily 07/26 LAMOTRIGINE 97593632954 No Longer Active Jacque Blas MD PhD Active LATUDA 40 MG TABS Take one by mouth daily LURASIDONE HCL 49824412454 Active Jacque Blas MD PhD Active HYDROCODONE-ACETAMINOPHEN 7.5-325 MG TABS 1 four times a day as needed for pain HYDROCODONE-ACETAMINOPHEN 40937167152 No Longer Active Jacque Blas MD PhD Active ROBAXIN 500 MG TAB 1-2 pills up to four times daily if needed for muscle spasms METHOCARBAMOL 43687443192 No Longer Active Jacque Blas MD PhD Active CITALOPRAM HYDROBROMIDE 10 MG TABS 1 pill daily, for depression/anxiety 02/09 CITALOPRAM HYDROBROMIDE 23926079781 No Longer Active Jacque Blas MD PhD Active HYDROCODONE-ACETAMINOPHEN 5-325 MG TABS 1 pill three times daily as needed for pain HYDROCODONE-ACETAMINOPHEN 21325426131 No Longer Active Jacque Blas MD PhD Active IBUPROFEN 600 MG TAB 1 pill four times daily, with food IBUPROFEN 63056968594 Active Jacque Blas MD PhD Active TRAMADOL HCL 50 MG TABS 1-2 tablets every 6 hours as needed for pain TRAMADOL HCL 69057333537 No Longer Active Jacque Blas MD PhD Active TYLENOL EXTRA STRENGTH 500 MG TABS 2 @ HS ACETAMINOPHEN 57601136145 No Longer Active Jacque Blas MD PhD Active SERTRALINE HCL 50 MG TABS 1 daily for depression SERTRALINE HCL 82552141215 No Longer Active Jacque Blas MD PhD Active BACTRIM DS 800-160 MG TAB 1 tab by mouth twice daily TRIMETHOPRIM-SULFAMETHOXAZOLE 29499742898 No Longer Active Eva Alejo APRN Active FLINSTONES GUMMIES OMEGA-3 DHA CHEW Take one by mouth daily PEDIATRIC MULTIPLE VIT-C-FA 50370419891 No Longer Active Jacque Blas MD PhD Active RANITIDINE HCL 150 MG CAPS 1 twice a day RANITIDINE HCL 79550544021 No Longer Active Jacque Blas MD PhD Active PNV-OMEGA 28-0.6-0.4-340 MG CAPS 1 pill by mouth daily PRENAT W/O J-HU-NBZCR-FA-OMEGA 13942680438 No Longer Active Jacque Blas MD PhD Active BACTRIM DS 800-160 MG TAB 1 tab by mouth twice daily TRIMETHOPRIM-SULFAMETHOXAZOLE 00846090217 No Longer Active Jacque Blas MD PhD Active METRONIDAZOLE 250 MG TABS 1 TID METRONIDAZOLE 06182410056 No Longer Active Jacque Blas MD PhD Active TRI-SPRINTEC 0.18/0.215/0.25 MG-35 MCG TABS 1 PO q Day NORGESTIM-ETH ESTRAD TRIPHASIC 73391036937 No Longer Active Jacque Blas MD PhD Active ALPRAZOLAM 0.25 MG TABS 1/2 tab to 1 tab PO TID PRN ALPRAZOLAM 93346378748 No Longer Active Jacque Blas MD PhD Active FLUOXETINE HCL 10 MG CAPS 2 PO q AM FLUOXETINE HCL 63561413158 No Longer Active Jacque Blas MD PhD Active ALPRAZOLAM 0.25 MG TABS 1/2 tab to 1 tab PO TID PRN ALPRAZOLAM 0.25 MG TABS 065669 ALPRAZOLAM Inactive TRI-SPRINTEC 0.18/0.215/0.25 MG-35 MCG TABS 1 PO q Day TRI-SPRINTEC 0.18/0.215/0.25 MG-35 MCG TABS 743733 NORGESTIM-ETH ESTRAD TRIPHASIC Inactive PNV-OMEGA 28-0.6-0.4-340 MG CAPS 1 pill by mouth daily PNV-OMEGA 28-0.6-0.4-340 MG CAPS PRENAT W/O E-[id number]-JIJEJ-FA-OMEGA Inactive RANITIDINE HCL 150 MG CAPS 1 twice a day RANITIDINE HCL 150 MG CAPS 949567 RANITIDINE HCL Inactive FLINSTONES GUMMIES OMEGA-3 DHA CHEW Take one by mouth daily FLINSTONES GUMMIES OMEGA-3 DHA CHEW PEDIATRIC MULTIPLE VIT-C-FA Inactive SERTRALINE HCL 50 MG TABS 1 daily for depression SERTRALINE HCL 50 MG TABS 913050 SERTRALINE HCL Inactive TYLENOL EXTRA STRENGTH 500 MG TABS 2 @ HS TYLENOL EXTRA STRENGTH 500 MG TABS 813948 ACETAMINOPHEN Inactive TRAMADOL HCL 50 MG TABS 1-2 tablets every 6 hours as needed for pain TRAMADOL HCL 50 MG TABS 017222 TRAMADOL HCL Inactive HYDROCODONE-ACETAMINOPHEN 5-325 MG TABS 1 pill three times daily as needed for pain HYDROCODONE-ACETAMINOPHEN 5-325 MG TABS 646037 HYDROCODONE-ACETAMINOPHEN Inactive CITALOPRAM HYDROBROMIDE 10 MG TABS 1 pill daily, for depression/anxiety 02/09 CITALOPRAM HYDROBROMIDE 10 MG TABS 706162 CITALOPRAM HYDROBROMIDE Inactive ROBAXIN 500 MG TAB 1-2 pills up to four times daily if needed for muscle spasms ROBAXIN 500 MG TAB 474642 METHOCARBAMOL Inactive HYDROCODONE-ACETAMINOPHEN 7.5-325 MG TABS 1 four times a day as needed for pain HYDROCODONE-ACETAMINOPHEN 7.5-325 MG TABS 686209 HYDROCODONE-ACETAMINOPHEN Inactive LAMICTAL 25 MG TABS 1 pill by mouth daily x 2 weeks, then 2 pills daily 07/26 LAMICTAL 25 MG TABS 013455 LAMOTRIGINE Inactive FLUOXETINE HCL 10 MG CAPS 2 PO q AM FLUOXETINE HCL 10 MG CAPS 820170 FLUOXETINE HCL Inactive METRONIDAZOLE 250 MG TABS 1 TID METRONIDAZOLE 250 MG TABS 255346 METRONIDAZOLE Inactive BACTRIM DS 800-160 MG TAB 1 tab by mouth twice daily BACTRIM DS 800-160 MG TAB TRIMETHOPRIM-SULFAMETHOXAZOLE Inactive BACTRIM DS 800-160 MG TAB 1 tab by mouth twice daily BACTRIM DS 800-160 MG TAB TRIMETHOPRIM-SULFAMETHOXAZOLE Inactive BACTRIM DS 800-160 MG ORAL TABS one tab PO BID x 3 days BACTRIM DS 800-160 MG ORAL TABS SULFAMETHOXAZOLE-TRIMETHOPRIM Inactive Advance Directives Directive Description Start Date PERMISSION TO SHARE Immunizations Vaccine Administration Date Value Standard Description dT (Diphtheria and Tetanus) booster given given Td(adult) unspecified formulation Adacel (Tetanus, reduced Diphtheria, and acellular Pertussis Immunization) Adacel [CTN712] tetanus toxoid, reduced diphtheria toxoid, and acellular [...] E&M - 3141-9 190.38 [lb_av] Weight Measured Diagnostic Results Date Name Value Unit Range Description Lab Report: Chlamydia/GC APTIMA/16540 - Lab chlamydia DNA probe NOT DETECTED NOT DETECTED chlamydia DNA probe NOT DETECTED NOT DETECTED Lab Report: Chlamydia/GC APTIMA/67677 - Microbiology Neisseria gonorrhoeae DNA probe NOT DETECTED NOT DETECTED Neisseria gonorrhoeae DNA probe NOT DETECTED NOT DETECTED Lab Report: Chlamydia/GC APTIMA/73292, Drug Abuse Pnl 10-50/96184 - Lab chlamydia DNA probe NOT DETECTED NOT DETECTED Lab Report: Chlamydia/GC APTIMA/20786, Drug Abuse Pnl 10-50/04055 - Microbiology Neisseria gonorrhoeae DNA probe NOT [...] AUTO - Chemistry protein, total urine random 1+ mg/dL Negative RBC, urine, dipstick 1+ Negative Lab Report: Wet Prep, UADIP W/MICRO, AUTO - Urinalysis urobilinogen, urine, semiquantitative (dipstick) 0.2 Normal leukocyte esterase, urine, by dipstick 2+ Negative nitrite, urine, semiquantitative Negative Negative glucose, urine, semiquantitative Negative Negative ketones, urine, by test strip Negative Negative bilirubin, urine Negative Negative pH, urine, semiquantitative 7.0 5.0-8.5 specific gravity, urine 1.010 1.000-1.030 appearance, urine Cloudy Clear urine color Yellow Colorless;Lightyellow;Straw;Yellow Encounters Code Encounter Date Provider Facility CPT-27343 Level 3 Est. Patient 20:19:50 LEARNING SUPPORT RESOURCE ROOM TEACHER Jacque Blas MD PhD [facility] CPT-75788 Level 4 Est. Patient 17:32:49 LEARNING SUPPORT RESOURCE ROOM TEACHER Jacque Blas MD PhD [facility] CPT-83876 Level 3 Est. Patient 14:38:20 CDT Jacque Blas MD PhD [facility] CPT-85579 Level 4 Est. Patient 20:19:14 CDT Jacque Blas MD [facility] CPT-81684 Level 3 Est. Patient 15:41:32 CDT Jacque Blas MD [facility] CPT-33268 Level 3 Est. Patient 18:02:00 LEARNING SUPPORT RESOURCE ROOM TEACHER Jacque Blas MD [facility] CPT-05215 Level 3 Est. Patient 21:41:26 LEARNING SUPPORT RESOURCE ROOM TEACHER Jacque lBas MD [facility] CPT-14106 Level 4 Est. Patient 14:43:47 LEARNING SUPPORT RESOURCE ROOM TEACHER Jacque Blas MD [facility] CPT-31437 Level 3 Est. Patient 20:16:54 LEARNING SUPPORT RESOURCE ROOM TEACHER Jacque Blas MD [facility] CPT-00044 Level 3 Est. Patient 13:31:37 CDT Jacque Blas MD [facility] CPT-06430 Level 3 New Patient 18:16:07 CDT Jacque Blas MD [facility] Procedures Code Procedure Name Date Entry Date Standard Description CPT-82963 Immunization Single Admin 13:26:18 LEARNING SUPPORT RESOURCE ROOM TEACHER CPT-18909 Fluzone Intramuscular Injectable 13:26:18 LEARNING SUPPORT RESOURCE ROOM TEACHER CPT-25181 Fluzone Thim Free 36mo and older 12:03:33 LEARNING SUPPORT RESOURCE ROOM TEACHER CPT-18681 UHCG (floor use only) 11:49:41 LEARNING SUPPORT RESOURCE ROOM TEACHER CPT-OV Office Visit 11:49:41 LEARNING SUPPORT RESOURCE ROOM TEACHER CPT-59721 LS spine comp w obliq 15:53:02 LEARNING SUPPORT RESOURCE ROOM TEACHER CPT-63453 C-Spine Min 4V 15:53:02 LEARNING SUPPORT RESOURCE ROOM TEACHER CPT-73055 UHCG (floor use only) 14:15:45 CDT CPT-34712 UHCG (floor use only) 14:09:15 CDT CPT-J7302 Mirena IUD 13:30:58 CDT CPT-24309 Insertion of IUD 13:30:58 CDT CPT-OV Office Visit 13:30:58 CDT CPT-30803 Visit 10:48:09 CDT CPT-75873 Visit 15:34:57 CDT CPT-93681 Visit 15:25:55 CDT CPT-07297 Visit 13:58:45 CDT CPT-06288 Sono OB comp > 14 weeks 16:57:22 CDT CPT-LR Lesion Removal 09:33:27 CDT CPT-64347 Visit 12:50:42 CDT CPT-84304 Visit 18:34:25 CDT CPT-000 Give Appropriate Tetanus Booster 09:16:14 CDT CPT-68536 Administration single or combination vaccine inc oral 11 :36:32 CDT CPT-57909 Tdap 11:36:32 CDT CPT-57747 Visit 09:16:14 CDT CPT-61518 Visit 13:35:24 CDT CPT-49253 Sono OB comp > 14 weeks 11:46:07 CDT CPT-50611 Visit 17:08:15 CDT CPT-87905 Sono OB comp <14 weeks 15:47:19 LEARNING SUPPORT RESOURCE ROOM TEACHER CPT-73795 Visit 13:28:37 CDT CPT-92256 Spec Collection and Handling Fee 12:41:37 CDT CPT-78315 Visit 12:41:07 CDT CPT-13631 Visit 18:48:53 CDT CPT-97457 Visit 16:25:17 CDT CPT-53147 Sono OB comp > 14 weeks 11:38:18 CDT CPT-05597 Visit 13:36:17 CDT CPT-73934 Visit 13:48:22 CDT
--- OUTSIDE RECORDS SUMMARY | 2019-01-13 20:28 | XMS REPORT | Clinical Summary ---
Author Author Admin, MARCO ANTONIO Gardiner [facility] Address Unknown Phone Unavailable Allergies, Adverse Reactions, Alerts Allergy Name Reaction Description Start Date Severity Status Provider No Known Allergies Lolly Torres Conditions or Problems Problem Name Problem Code [...] inoculation against other viral diseases UTI 599.0 Active Eva Alejo READING AIDE Urinary tract infection, site not specified , NORMAL ICD-V22.2 Inactive Jacque Blas MD [...] MD PhD , NORMAL, MULTIGRAVIDA ICD-V22.1 Anabelle De Pazl MD PhD OTHER SPECIFED COMPLICATION ANTEPARTUM ICD-646.83 [...] Instructions Start Date Stop Date Generic Name ND Status Provider Patient Instruction CIPRO 500 MG TAB 1 tablet by mouth twice daily CIPROFLOXACIN HCL 01797026855 Active Eva Alejo APRN Active CYCLOBENZAPRINE HCL 10 MG TABS 1/2 - 1 tab by mouth three times daily if needed for spasms/pain CYCLOBENZAPRINE HCL 24383034554 No Longer Active Eva Alejo APRN Active NICODERM CQ 7 MG/24HR PT24 1 patch daily x 2 weeks - for smoking cessation NICOTINE 93847881422 Active Jacque Blas MD PhD Active NICODERM CQ 14 MG/24HR PT24 1 patch daily x 2 weeks, then decrease to 7's - for smoking cessation NICOTINE 39054427649 Active Jacque Blas MD PhD Active FLAGYL 500 MG ORAL TABS four tabs PO x 1 METRONIDAZOLE 71923309388 No Longer Active Jacque Blas MD PhD Active BACTRIM DS 800-160 MG ORAL TABS one tab PO BID x 3 days SULFAMETHOXAZOLE-TRIMETHOPRIM 66311708165 No Longer Active Chloe Wagner MD Active METHOCARBAMOL 500 MG ORAL TABS 1 pill by mouth up to four times daily if needed for muscle spasm/pain METHOCARBAMOL 81442149102 Active Jacque Blas MD PhD Active LAMICTAL 25 MG TABS 1 pill by mouth daily x 2 weeks, then 2 pills daily 07/26 LAMOTRIGINE 20511083816 No Longer Active Jacque Blas MD PhD Active LATUDA 40 MG TABS Take one by mouth daily LURASIDONE HCL 76816460837 Active Jacque Blas MD PhD Active HYDROCODONE-ACETAMINOPHEN 7.5-325 MG TABS 1 four times a day as needed for pain HYDROCODONE-ACETAMINOPHEN 87569433719 No Longer Active Jacque Blas MD PhD Active ROBAXIN 500 MG TAB 1-2 pills up to four times daily if needed for muscle spasms METHOCARBAMOL 82243221627 No Longer Active Jacque Blas MD PhD Active CITALOPRAM HYDROBROMIDE 10 MG TABS 1 pill daily, for depression/anxiety 02/09 CITALOPRAM HYDROBROMIDE 85944177719 No Longer Active Jacque Blas MD PhD Active HYDROCODONE-ACETAMINOPHEN 5-325 MG TABS 1 pill three times daily as needed for pain HYDROCODONE-ACETAMINOPHEN 82699269111 No Longer Active Jacque Blas MD PhD Active IBUPROFEN 600 MG TAB 1 pill four times daily, with food IBUPROFEN 37330194543 Active Jacque Blas MD PhD Active TRAMADOL HCL 50 MG TABS 1-2 tablets every 6 hours as needed for pain TRAMADOL HCL 41218160108 No Longer Active Jacque Blas MD PhD Active TYLENOL EXTRA STRENGTH 500 MG TABS 2 @ HS ACETAMINOPHEN 31134097863 No Longer Active Jacque Blas MD PhD Active SERTRALINE HCL 50 MG TABS 1 daily for depression SERTRALINE HCL 12319783226 No Longer Active Jacque Blas MD PhD Active BACTRIM DS 800-160 MG TAB 1 tab by mouth twice daily TRIMETHOPRIM-SULFAMETHOXAZOLE 17088294405 No Longer Active Eva Alejo APRN Active FLHANNAH GUMMIES OMEGA-3 DHA CHEW Take one by mouth daily PEDIATRIC MULTIPLE VIT-C-FA 29481425670 No Longer Active Jacque Blas MD PhD Active RANITIDINE HCL 150 MG CAPS 1 twice a day RANITIDINE HCL 15996538393 No Longer Active Jacque Blas MD PhD Active PNV-OMEGA 28-0.6-0.4-340 MG CAPS 1 pill by mouth daily PRENAT W/O F-NO-SKOTW-FA-OMEGA 43897886327 No Longer Active Jacque Blas MD PhD Active BACTRIM DS 800-160 MG TAB 1 tab by mouth twice daily TRIMETHOPRIM-SULFAMETHOXAZOLE 95201618878 No Longer Active Jacque Blas MD PhD Active METRONIDAZOLE 250 MG TABS 1 TID METRONIDAZOLE 63780069101 No Longer Active Jacque Blas MD PhD Active TRI-SPRINTEC 0.18/0.215/0.25 MG-35 MCG TABS 1 PO q Day NORGESTIM-ETH ESTRAD TRIPHASIC 83126525242 No Longer Active Jacque Blas MD PhD Active ALPRAZOLAM 0.25 MG TABS 1/2 tab to 1 tab PO TID PRN ALPRAZOLAM 26929365683 No Longer Active Jacque Blas MD PhD Active FLUOXETINE HCL 10 MG CAPS 2 PO q AM FLUOXETINE HCL 59692398210 No Longer Active Jacque Blas MD PhD Active ALPRAZOLAM 0.25 MG TABS 1/2 tab to 1 tab PO TID PRN ALPRAZOLAM 0.25 MG TABS 075979 ALPRAZOLAM Inactive TRI-SPRINTEC 0.18/0.215/0.25 MG-35 MCG TABS 1 PO q Day TRI-SPRINTEC 0.18/0.215/0.25 MG-35 MCG TABS 873427 NORGESTIM-ETH ESTRAD TRIPHASIC Inactive PNV-OMEGA 28-0.6-0.4-340 MG CAPS 1 pill by mouth daily PNV-OMEGA 28-0.6-0.4-340 MG CAPS PRENAT W/O [id number]-OMEGA Inactive RANITIDINE HCL 150 MG CAPS 1 twice a day RANITIDINE HCL 150 MG CAPS 190526 RANITIDINE HCL Inactive FLINSTONES GUMMIES OMEGA-3 DHA CHEW Take one by mouth daily FLINSTONES GUMMIES OMEGA-3 DHA CHEW PEDIATRIC MULTIPLE VIT-C-FA Inactive SERTRALINE HCL 50 MG TABS 1 daily for depression SERTRALINE HCL 50 MG TABS 849317 SERTRALINE HCL Inactive TYLENOL EXTRA STRENGTH 500 MG TABS 2 @ HS TYLENOL EXTRA STRENGTH 500 MG TABS 564129 ACETAMINOPHEN Inactive TRAMADOL HCL 50 MG TABS 1-2 tablets every 6 hours as needed for pain TRAMADOL HCL 50 MG TABS 124360 TRAMADOL HCL Inactive HYDROCODONE-ACETAMINOPHEN 5-325 MG TABS 1 pill three times daily as needed for pain HYDROCODONE-ACETAMINOPHEN 5-325 MG TABS 397113 HYDROCODONE-ACETAMINOPHEN Inactive CITALOPRAM HYDROBROMIDE 10 MG TABS 1 pill daily, for depression/anxiety 02/09 CITALOPRAM HYDROBROMIDE 10 MG TABS 002910 CITALOPRAM HYDROBROMIDE Inactive ROBAXIN 500 MG TAB 1-2 pills up to four times daily if needed for muscle spasms ROBAXIN 500 MG TAB 663365 METHOCARBAMOL Inactive HYDROCODONE-ACETAMINOPHEN 7.5-325 MG TABS 1 four times a day as needed for pain HYDROCODONE-ACETAMINOPHEN 7.5-325 MG TABS 079705 HYDROCODONE-ACETAMINOPHEN Inactive LAMICTAL 25 MG TABS 1 pill by mouth daily x 2 weeks, then 2 pills daily 07/26 LAMICTAL 25 MG TABS 369251 LAMOTRIGINE Inactive FLAGYL 500 MG ORAL TABS four tabs PO x 1 FLAGYL 500 MG ORAL TABS 042058 METRONIDAZOLE Inactive CYCLOBENZAPRINE HCL 10 MG TABS 1/2 - 1 tab by mouth three times daily if needed for spasms/pain CYCLOBENZAPRINE HCL 10 MG TABS 033400 CYCLOBENZAPRINE HCL Inactive FLUOXETINE HCL 10 MG CAPS 2 PO q AM FLUOXETINE HCL 10 MG CAPS 412214 FLUOXETINE HCL Inactive METRONIDAZOLE 250 MG TABS 1 TID METRONIDAZOLE 250 MG TABS 920204 METRONIDAZOLE Inactive BACTRIM DS 800-160 MG TAB [...] reduced Diphtheria, and acellular Pertussis Immunization) Adacel [[id number]] tetanus toxoid, reduced diphtheria toxoid, and acellular pertussis vaccine, adsorbed hepatitis B vaccine series yes hepatitis B vaccine, unspecified formulation Vital Signs Date Name Value Unit Range Description blood pressure, diastolic - 8462-4 78 mm[Hg] [...] Value Unit Range Description Lab Report: Chlamydia/GC APTIMA/94491 - Lab chlamydia DNA probe NOT DETECTED NOT DETECTED chlamydia DNA probe NOT DETECTED NOT DETECTED chlamydia DNA probe NOT DETECTED NOT DETECTED Lab Report: Chlamydia/GC APTIMA/81451 - Microbiology Neisseria gonorrhoeae DNA probe NOT DETECTED NOT DETECTED Neisseria gonorrhoeae DNA probe NOT DETECTED NOT DETECTED Neisseria gonorrhoeae DNA probe NOT DETECTED NOT DETECTED Lab Report: Chlamydia/GC APTIMA/58727, Drug Abuse Pnl 10-50/89834 - Lab chlamydia DNA probe NOT DETECTED NOT DETECTED Lab Report: Chlamydia/GC APTIMA/92442, Drug Abuse Pnl 10-50/10009 - Microbiology Neisseria gonorrhoeae DNA probe NOT DETECTED NOT DETECTED Lab Report: CKI, Erythrocyte Sed Rate - Chemistry creatine kinase, serum 63 U/L 26-192 Lab Report: HEPATITIS B S AG W/, HIV-1/HIV-2 AB SCREEN W , RPR ... - Chemistry hepatitis B surface antigen NON-REACTIVE NON-REACTIVE Lab Report: HEPATITIS B S AG W/, HIV-1/HIV-2 AB SCREEN W /, RPR ... - Serology rapid plasma reagin [...] pH, urine, semiquantitative 7.0 5.0-8.5 Office Visit: mirena removal - Chemistry human chorionic gonadotropin, urine, qualitative (urine test) Negative Encounters Code Encounter Date Provider Facility CPT-25065 Level 3 Est. Patient 20:19:50 WASHATERIA ATTENDANT Jacque Blas MD [facility] CPT-37572 Level 4 Est. Patient 17:32:49 WASHATERIA ATTENDANT Jacque Blas MD [facility] CPT-59067 Level 3 Est. Patient 14:38:20 CDT Jacque Blas MD [facility] CPT-50031 Level 4 Est. Patient 20:19:14 CDT Jacque Blas MD [facility] CPT-48104 Level 3 Est. Patient 15:41:32 CDT Jacque Blas MD [facility] CPT-54513 Level 3 Est. Patient 18:02:00 WASHATERIA ATTENDANT Jacque Blas MD [facility] CPT-27157 Level 3 Est. Patient 21:41:26 WASHATERIA ATTENDANT Jacque Blas MD [facility] CPT-81296 Level 4 Est. Patient 14:43:47 WASHATERIA ATTENDANT Jacque Blas MD [facility] CPT-63084 Level 3 Est. Patient 20:16:54 WASHATERIA ATTENDANT Jacque Blas MD [facility] CPT-09154 Level 3 Est. Patient 13:31:37 CDT Jacque Blas MD [facility] CPT-27522 Level 3 New Patient 18:16:07 CDT Jacque Blas MD [facility] Procedures Code Procedure Name Date Entry Date Standard Description CPT-63249 Fluzone Quadrivalent Intramuscular Suspension 0.5 ML 16: 31:47 WASHATERIA ATTENDANT CPT-95021 Immunization Single Admin 16:31:47 WASHATERIA ATTENDANT CPT-21831 Immunization Single Admin 13:26:18 WASHATERIA ATTENDANT CPT-14452 Fluzone Intramuscular Injectable 13:26:18 WASHATERIA ATTENDANT CPT-58031 Fluzone Thim Free 36mo and older 12:03:33 WASHATERIA ATTENDANT CPT-21606 UHCG (floor use only) 11:49:41 WASHATERIA ATTENDANT CPT-OV Office Visit 11:49:41 WASHATERIA ATTENDANT CPT-71895 LS spine comp w obliq 15:53:02 WASHATERIA ATTENDANT CPT-13815 C-Spine Min 4V 15:53:02 WASHATERIA ATTENDANT CPT-36764 UHCG (floor use only) 14:15:45 CDT CPT-65375 UHCG (floor use only) 14:09:15 CDT CPT-J7302 Mirena IUD 13:30:58 CDT CPT-40114 Insertion of IUD 13:30:58 CDT CPT-OV Office Visit 13:30:58 CDT CPT-64155 Visit 10:48:09 CDT CPT-20244 Visit 15:34:57 CDT CPT-08589 Visit 15:25:55 CDT CPT-94509 Visit 13:58:45 CDT CPT-42575 Sono OB comp > 14 weeks 16:57:22 CDT CPT-LR Lesion Removal 09:33:27 CDT CPT-09484 Visit 12:50:42 CDT CPT-89486 Visit 18:34:25 CDT CPT-000 Give Appropriate Tetanus Booster 09:16:14 CDT CPT-93737 Administration single or combination vaccine inc oral 11 :36:32 CDT CPT-06339 Tdap 11:36:32 CDT CPT-37033 Visit 09:16:14 CDT CPT-88425 Visit 13:35:24 CDT CPT-49035 Sono OB comp > 14 weeks 11:46:07 CDT CPT-44851 Visit 17:08:15 CDT CPT-70658 Sono OB comp <14 weeks 15:47:19 WASHATERIA ATTENDANT CPT-39188 Visit 13:28:37 CDT CPT-61463 Spec Collection and Handling Fee 12:41:37 CDT CPT-32741 Visit 12:41:07 CDT CPT-64127 Visit 18:48:53 CDT CPT-96619 Visit 16:25:17 CDT CPT-24257 Sono OB comp > 14 weeks 11:38:18 CDT CPT-21161 Visit 13:36:17 CDT CPT-01520 Visit 13:48:22 CDT
--- OUTSIDE RECORDS SUMMARY | 2019-01-13 20:29 | XMS REPORT | Clinical Summary ---
Author Author Admin, MARCO ANTONIO Gardiner [facility] Address Unknown Phone Unavailable Allergies, Adverse [...] Generic Name NDC Status Provider Patient Instruction NICODERM CQ 7 MG/24HR PT24 1 patch daily x 2 weeks - for smoking cessation NICOTINE 52624814379 Active Jacque Blas MD PhD Active NICODERM CQ 14 MG/24HR PT24 1 patch daily x 2 weeks, then decrease to 7's - for smoking cessation NICOTINE 56469111912 Active Jacque Blas MD PhD Active FLAGYL 500 MG ORAL TABS four tabs PO x 1 METRONIDAZOLE 32377424032 No Longer Active Jacque Blas MD PhD Active BACTRIM DS 800-160 MG ORAL TABS one tab PO BID x 3 days SULFAMETHOXAZOLE-TRIMETHOPRIM 50591625411 No Longer Active Chloe Wagner MD Active METHOCARBAMOL 500 MG ORAL TABS 1 pill by mouth up to four times daily if needed for muscle spasm/pain METHOCARBAMOL 26081888945 Active Jacque Blas MD PhD Active CYCLOBENZAPRINE HCL 10 MG TABS 1/2 - 1 tab by mouth three times daily if needed for spasms/pain CYCLOBENZAPRINE HCL 50484877364 Active Jacque Blas MD PhD Active LAMICTAL 25 MG TABS 1 pill by mouth daily x 2 weeks, then 2 pills daily 07/26 LAMOTRIGINE 68954346354 No Longer Active Jacque Blas MD PhD Active LATUDA 40 MG TABS Take one by mouth daily LURASIDONE HCL 90160832787 Active Jacque Blas MD PhD Active HYDROCODONE-ACETAMINOPHEN 7.5-325 MG TABS 1 four times a day as needed for pain HYDROCODONE-ACETAMINOPHEN 54516975247 No Longer Active Jacque Blas MD PhD Active ROBAXIN 500 MG TAB 1-2 pills up to four times daily if needed for muscle spasms METHOCARBAMOL 95821416441 No Longer Active Jacque Blas MD PhD Active CITALOPRAM HYDROBROMIDE 10 MG TABS 1 pill daily, for depression/anxiety 02/09 CITALOPRAM HYDROBROMIDE 82315670376 No Longer Active Jacque Blas MD PhD Active HYDROCODONE-ACETAMINOPHEN 5-325 MG TABS 1 pill three times daily as needed for pain HYDROCODONE-ACETAMINOPHEN 09242669367 No Longer Active Jacque Blas MD PhD Active IBUPROFEN 600 MG TAB 1 pill four times daily, with food IBUPROFEN 19966158898 Active Jacque Blas MD PhD Active TRAMADOL HCL 50 MG TABS 1-2 tablets every 6 hours as needed for pain TRAMADOL HCL 28156695863 No Longer Active Jacque Blas MD PhD Active TYLENOL EXTRA STRENGTH 500 MG TABS 2 @ HS ACETAMINOPHEN 87524973274 No Longer Active Jacque Blas MD PhD Active SERTRALINE HCL 50 MG TABS 1 daily for depression SERTRALINE HCL 61590142745 No Longer Active Jacque Blas MD PhD Active BACTRIM DS 800-160 MG TAB 1 tab by mouth twice daily TRIMETHOPRIM-SULFAMETHOXAZOLE 05387126269 No Longer Active Eva Alejo APRN Active FLINSTONES GUMMIES OMEGA-3 DHA CHEW Take one by mouth daily PEDIATRIC MULTIPLE VIT-C-FA 19958577463 No Longer Active Jacque Blas MD PhD Active RANITIDINE HCL 150 MG CAPS 1 twice a day RANITIDINE HCL 61379595618 No Longer Active Jacque Blas MD PhD Active PNV-OMEGA 28-0.6-0.4-340 MG CAPS 1 pill by mouth daily PRENAT W/O C-SM-OGYDT-FA-OMEGA 45455596643 No Longer Active Jacque Blas MD PhD Active BACTRIM DS 800-160 MG TAB 1 tab by mouth twice daily TRIMETHOPRIM-SULFAMETHOXAZOLE 88825667897 No Longer Active Jacque Blas MD PhD Active METRONIDAZOLE 250 MG TABS 1 TID METRONIDAZOLE 29698963116 No Longer Active Jacque Blas MD PhD Active TRI-SPRINTEC 0.18/0.215/0.25 MG-35 MCG TABS 1 PO q Day NORGESTIM-ETH ESTRAD TRIPHASIC 67602976014 No Longer Active Jacque Blas MD PhD Active ALPRAZOLAM 0.25 MG TABS 1/2 tab to 1 tab PO TID PRN ALPRAZOLAM 14040348346 No Longer Active Jacque Blas MD PhD Active FLUOXETINE HCL 10 MG CAPS 2 PO q AM FLUOXETINE HCL 92577989382 No Longer Active Jacque Blas MD PhD Active ALPRAZOLAM 0.25 MG TABS 1/2 tab to 1 tab PO TID PRN ALPRAZOLAM 0.25 MG TABS 947148 ALPRAZOLAM Inactive TRI-SPRINTEC 0.18/0.215/0.25 MG-35 MCG TABS 1 PO q Day TRI-SPRINTEC 0.18/0.215/0.25 MG-35 MCG TABS 670120 NORGESTIM-ETH ESTRAD TRIPHASIC Inactive PNV-OMEGA 28-0.6-0.4-340 MG CAPS 1 pill by mouth daily PNV-OMEGA 28-0.6-0.4-340 MG CAPS PRENAT W/O X-[id number]-FA-OMEGA Inactive RANITIDINE HCL 150 MG CAPS 1 twice a day RANITIDINE HCL 150 MG CAPS 677458 RANITIDINE HCL Inactive FLINSTONES GUMMIES OMEGA-3 DHA CHEW Take one by mouth daily FLINSTONES GUMMIES OMEGA-3 DHA CHEW PEDIATRIC MULTIPLE VIT-C-FA Inactive SERTRALINE HCL 50 MG TABS 1 daily for depression SERTRALINE HCL 50 MG TABS 531700 SERTRALINE HCL Inactive TYLENOL EXTRA STRENGTH 500 MG TABS 2 @ HS TYLENOL EXTRA STRENGTH 500 MG TABS 501749 ACETAMINOPHEN Inactive TRAMADOL HCL 50 MG TABS 1-2 tablets every 6 hours as needed for pain TRAMADOL HCL 50 MG TABS 858683 TRAMADOL HCL Inactive HYDROCODONE-ACETAMINOPHEN 5-325 MG TABS 1 pill three times daily as needed for pain HYDROCODONE-ACETAMINOPHEN 5-325 MG TABS 421955 HYDROCODONE-ACETAMINOPHEN Inactive CITALOPRAM HYDROBROMIDE 10 MG TABS 1 pill daily, for depression/anxiety 02/09 CITALOPRAM HYDROBROMIDE 10 MG TABS 779684 CITALOPRAM HYDROBROMIDE Inactive ROBAXIN 500 MG TAB 1-2 pills up to four times daily if needed for muscle spasms ROBAXIN 500 MG TAB 640342 METHOCARBAMOL Inactive HYDROCODONE-ACETAMINOPHEN 7.5-325 MG TABS 1 four times a day as needed for pain HYDROCODONE-ACETAMINOPHEN 7.5-325 MG TABS 616275 HYDROCODONE-ACETAMINOPHEN Inactive LAMICTAL 25 MG TABS 1 pill by mouth daily x 2 weeks, then 2 pills daily 07/26 LAMICTAL 25 MG TABS 258168 LAMOTRIGINE Inactive FLAGYL 500 MG ORAL TABS four tabs PO x 1 FLAGYL 500 MG ORAL TABS 545001 METRONIDAZOLE Inactive FLUOXETINE HCL 10 MG CAPS 2 PO q AM FLUOXETINE HCL 10 MG CAPS 368871 FLUOXETINE HCL Inactive METRONIDAZOLE 250 MG TABS 1 TID METRONIDAZOLE 250 MG TABS 267526 METRONIDAZOLE Inactive BACTRIM DS 800-160 MG TAB [...] reduced Diphtheria, and acellular Pertussis Immunization) Adacel [[id number]] tetanus toxoid, reduced diphtheria toxoid, and acellular [...] Value Unit Range Description Lab Report: Chlamydia/GC APTIMA/81478 - Lab chlamydia DNA probe NOT DETECTED NOT DETECTED chlamydia DNA probe NOT DETECTED NOT DETECTED Lab Report: Chlamydia/GC APTIMA/15953 - Microbiology Neisseria gonorrhoeae DNA probe NOT DETECTED NOT DETECTED Neisseria gonorrhoeae DNA probe NOT DETECTED NOT DETECTED Lab Report: Chlamydia/GC APTIMA/77787, Drug Abuse Pnl 1050/40900 - Lab chlamydia DNA probe NOT DETECTED NOT DETECTED Lab Report: Chlamydia/GC APTIMA/21384, Drug Abuse Pnl 1050/50387 - Microbiology Neisseria gonorrhoeae DNA probe NOT DETECTED NOT DETECTED Lab Report: CKI, Erythrocyte Sed Rate - Chemistry creatine kinase, serum 63 U/L 26-192 Lab Report: HEPATITIS B S AG W/, HIV-1/HIV-2 AB SCREEN W REFL, RPR ... - Chemistry hepatitis B surface antigen NON-REACTIVE NON-REACTIVE Lab Report: HEPATITIS B S AG W/, HIV-1/HIV-2 AB SCREEN W REFL/, RPR ... - Serology rapid plasma reagin antibody titer NON-REACTIVE NON-REACTIVE Lab Report: Wet Prep, UADIP W/MICRO, AUTO - Chemistry RBC, urine, dipstick 1+ Negative protein, total urine random 1+ mg/dL Negative Lab Report: Wet Prep, UADIP W/MICRO, AUTO - Urinalysis glucose, urine, semiquantitative Negative Negative ketones, urine, by test strip Negative Negative bilirubin, urine Negative Negative urine color Yellow Colorless;Lightyellow;Straw;Yellow appearance, urine Cloudy Clear specific gravity, urine 1.010 1.000-1.030 pH, urine, semiquantitative 7.0 5.0-8.5 urobilinogen, urine, semiquantitative (dipstick) 0.2 Normal leukocyte esterase, urine, by dipstick 2+ Negative nitrite, urine, semiquantitative Negative Negative Encounters Code Encounter Date Provider Facility CPT-33873 Level 3 Est. Patient 20:19:50 VESSEL ENGINEER Jacque Blas MD [facility] CPT-00048 Level 4 Est. Patient 17:32:49 VESSEL ENGINEER Jacque Blas MD [facility] CPT-19663 Level 3 Est. Patient 14:38:20 CDT Jacque Blas MD [facility] CPT-08571 Level 4 Est. Patient 20:19:14 CDT Jacque Blas MD [facility]-96863 Level 3 Est. Patient 15:41:32 CDT Jacque Blas MD [facility] CPT-12032 Level 3 Est. Patient 18:02:00 VESSEL ENGINEER Jacque Blas MD [facility] CPT-00043 Level 3 Est. Patient 21:41:26 VESSEL ENGINEER Jacque Blas MD [facility] CPT-23505 Level 4 Est. Patient 14:43:47 VESSEL ENGINEER Jacque Blas MD [facility] CPT-44578 Level 3 Est. Patient 20:16:54 VESSEL ENGINEER Jacque Blas MD [facility] CPT-03052 Level 3 Est. Patient 13:31:37 CDT Jacque Blas MD [facility] CPT-07847 Level 3 New Patient 18:16:07 CDT Jacque Blas MD [facility] Procedures Code Procedure Name Date Entry Date Standard Description CPT-89847 Immunization Single Admin 13:26:18 VESSEL ENGINEER CPT-21334 Fluzone Intramuscular Injectable 13:26:18 VESSEL ENGINEER CPT-36322 Fluzone Thim Free 36mo and older 12:03:33 VESSEL ENGINEER CPT-41693 UHCG (floor use only) 11:49:41 VESSEL ENGINEER CPT-OV Office Visit 11:49:41 VESSEL ENGINEER CPT-75835 LS spine comp w obliq 15:53:02 VESSEL ENGINEER CPT-68081 C-Spine Min 4V 15:53:02 VESSEL ENGINEER CPT-90719 UHCG (floor use only) 14:15:45 CDT CPT-51127 UHCG (floor use only) 14:09:15 CDT CPT-J7302 Mirena IUD 13:30:58 CDT CPT-95130 Insertion of IUD 13:30:58 CDT CPT-OV Office Visit 13:30:58 CDT CPT-57912 Visit 10:48:09 CDT CPT-52617 Visit 15:34:57 CDT CPT-71616 Visit 15:25:55 CDT CPT-11693 Visit 13:58:45 CDT CPT-63511 Sono OB comp > 14 weeks 16:57:22 CDT CPT-LR Lesion Removal 09:33:27 CDT CPT-85187 Visit 12:50:42 CDT CPT-93575 Visit 18:34:25 CDT CPT-000 Give Appropriate Tetanus Booster 09:16:14 CDT CPT-92808 Administration single or combination vaccine inc oral 11 :36:32 CDT CPT-78761 Tdap 11:36:32 CDT CPT-50295 Visit 09:16:14 CDT CPT-04734 Visit 13:35:24 CDT CPT-12276 Sono OB comp > 14 weeks 11:46:07 CDT CPT-98577 Visit 17:08:15 CDT CPT-35561 Sono OB comp <14 weeks 15:47:19 VESSEL ENGINEER CPT-41801 Visit 13:28:37 CDT CPT-17740 Spec Collection and Handling Fee 12:41:37 CDT CPT-40618 Visit 12:41:07 CDT CPT-64507 Visit 18:48:53 CDT CPT-94144 Visit 16:25:17 CDT CPT-69083 Sono OB comp > 14 weeks 11:38:18 CDT CPT-94565 Visit 13:36:17 CDT CPT-95867 Visit 13:48:22 CDT
--- OUTSIDE RECORDS SUMMARY | 2019-01-13 20:29 | XMS REPORT | Clinical Summary ---
Author Author Admin, MARCO ANTONIO [facility] Address Unknown Phone Unavailable Allergies, Adverse Reactions, [...] Instructions Start Date Stop Date Generic Name [facility] Status Provider Patient Instruction METHOCARBAMOL 500 MG ORAL TABS 1 pill by mouth up to four times daily if needed for muscle spasm/pain METHOCARBAMOL 12640950755 Active Jacque Blas MD PhD Active CYCLOBENZAPRINE HCL 10 MG TABS 1/2 - 1 tab by mouth three times daily if needed for spasms/pain CYCLOBENZAPRINE HCL 86414846563 Active Jacque Blas MD PhD Active LAMICTAL 25 MG TABS 1 pill by mouth daily x 2 weeks, then 2 pills daily 07/26 LAMOTRIGINE 25056644046 No Longer Active Jacque Blas MD PhD Active LATUDA 40 MG TABS Take one by mouth daily LURASIDONE HCL 63740728676 Active Jacque Blas MD PhD Active HYDROCODONE-ACETAMINOPHEN 7.5-325 MG TABS 1 four times a day as needed for pain HYDROCODONE-ACETAMINOPHEN 50434359966 No Longer Active Jacque Blas MD PhD Active ROBAXIN 500 MG TAB 1-2 pills up to four times daily if needed for muscle spasms METHOCARBAMOL 86529481666 No Longer Active Jacque Blas MD PhD Active CITALOPRAM HYDROBROMIDE 10 MG TABS 1 pill daily, for depression/anxiety 02/09 CITALOPRAM HYDROBROMIDE 06306249745 No Longer Active Jacque Blas MD PhD Active HYDROCODONE-ACETAMINOPHEN 5-325 MG TABS 1 pill three times daily as needed for pain HYDROCODONE-ACETAMINOPHEN 24242163686 No Longer Active Jacque Blas MD PhD Active IBUPROFEN 600 MG TAB 1 pill four times daily, with food IBUPROFEN 98482600428 Active Jacque Blas MD PhD Active TRAMADOL HCL 50 MG TABS 1-2 tablets every 6 hours as needed for pain TRAMADOL HCL 29167826124 No Longer Active Jacque Blas MD PhD Active TYLENOL EXTRA STRENGTH 500 MG TABS 2 @ HS ACETAMINOPHEN 92006954726 No Longer Active Jacque Blas MD PhD Active SERTRALINE HCL 50 MG TABS 1 daily for depression SERTRALINE HCL 72511246411 No Longer Active Jacque Blas MD PhD Active BACTRIM DS 800-160 MG TAB 1 tab by mouth twice daily TRIMETHOPRIM-SULFAMETHOXAZOLE 73686357781 No Longer Active Eva Alejo ASIAN STUDIES PROFESSOR Active FLINSTONELÍAS GUMMIES OMEGA-3 DHA CHEW Take one by mouth daily PEDIATRIC MULTIPLE VIT-C-FA 58112926552 No Longer Active Jacque Blsa MD PhD Active RANITIDINE HCL 150 MG CAPS 1 twice a day RANITIDINE HCL 71723085488 No Longer Active Jacque Blas MD PhD Active PNV-OMEGA 28-0.6-0.4-340 MG CAPS 1 pill by mouth daily PRENAT W/O [id number]-FA-OMEGA 53071905055 No Longer Active Jacque Blas MD PhD Active BACTRIM DS 800-160 MG TAB 1 tab by mouth twice daily TRIMETHOPRIM-SULFAMETHOXAZOLE 20016975972 No Longer Active Jacque Blas MD PhD Active METRONIDAZOLE 250 MG TABS 1 TID METRONIDAZOLE 54080345536 No Longer Active Jacque Blas MD PhD Active TRI-SPRINTEC 0.18/0.215/0.25 MG-35 MCG TABS 1 PO q Day NORGESTIM-ETH ESTRAD TRIPHASIC 99145812125 No Longer Active Jacque Blas MD PhD Active ALPRAZOLAM 0.25 MG TABS 1/2 tab to 1 tab PO TID PRN ALPRAZOLAM 04387075817 No Longer Active Jacque Blas MD PhD Active FLUOXETINE HCL 10 MG CAPS 2 PO q AM FLUOXETINE HCL 39795575019 No Longer Active Jacque Blas MD PhD Active ALPRAZOLAM 0.25 MG TABS 1/2 tab to 1 tab PO TID PRN ALPRAZOLAM 0.25 MG TABS 350366 ALPRAZOLAM Inactive TRI-SPRINTEC 0.18/0.215/0.25 MG-35 MCG TABS 1 PO q Day TRI-SPRINTEC 0.18/0.215/0.25 MG-35 MCG TABS 061488 NORGESTIM-ETH ESTRAD TRIPHASIC Inactive PNV-OMEGA 28-0.6-0.4-340 MG CAPS 1 pill by mouth daily PNV-OMEGA 28-0.6-0.4-340 MG CAPS PRENAT W/O [id number] Inactive RANITIDINE HCL 150 MG CAPS 1 twice a day RANITIDINE HCL 150 MG CAPS 359870 RANITIDINE HCL Inactive FLINSTONES GUMMIES OMEGA-3 DHA CHEW Take one by mouth daily FLINSTONES GUMMIES OMEGA-3 DHA CHEW PEDIATRIC MULTIPLE VIT-C-FA Inactive SERTRALINE HCL 50 MG TABS 1 daily for depression SERTRALINE HCL 50 MG TABS 846415 SERTRALINE HCL Inactive TYLENOL EXTRA STRENGTH 500 MG TABS 2 @ HS TYLENOL EXTRA STRENGTH 500 MG TABS 772222 ACETAMINOPHEN Inactive TRAMADOL HCL 50 MG TABS 1-2 tablets every 6 hours as needed for pain TRAMADOL HCL 50 MG TABS 751594 TRAMADOL HCL Inactive HYDROCODONE-ACETAMINOPHEN 5-325 MG TABS 1 pill three times daily as needed for pain HYDROCODONE-ACETAMINOPHEN 5-325 MG TABS 990039 HYDROCODONE-ACETAMINOPHEN Inactive CITALOPRAM HYDROBROMIDE 10 MG TABS 1 pill daily, for depression/anxiety 02/09 CITALOPRAM HYDROBROMIDE 10 MG TABS 659878 CITALOPRAM HYDROBROMIDE Inactive ROBAXIN 500 MG TAB 1-2 pills up to four times daily if needed for muscle spasms ROBAXIN 500 MG TAB 663070 METHOCARBAMOL Inactive HYDROCODONE-ACETAMINOPHEN 7.5-325 MG TABS 1 four times a day as needed for pain HYDROCODONE-ACETAMINOPHEN 7.5-325 MG TABS 657017 HYDROCODONE-ACETAMINOPHEN Inactive LAMICTAL 25 MG TABS 1 pill by mouth daily x 2 weeks, then 2 pills daily 07/26 LAMICTAL 25 MG TABS 512593 LAMOTRIGINE Inactive FLUOXETINE HCL 10 MG CAPS 2 PO q AM FLUOXETINE HCL 10 MG CAPS 093005 FLUOXETINE HCL Inactive METRONIDAZOLE 250 MG TABS 1 TID METRONIDAZOLE 250 MG TABS 913586 METRONIDAZOLE Inactive BACTRIM DS 800-160 MG TAB [...] reduced Diphtheria, and acellular Pertussis Immunization) Adacel [[id number]] tetanus toxoid, reduced diphtheria toxoid, and acellular [...] Value Unit Range Description Lab Report: Chlamydia/GC APTIMA/55457 - Lab chlamydia DNA probe NOT DETECTED NOT DETECTED chlamydia DNA probe NOT DETECTED NOT DETECTED Lab Report: Chlamydia/GC APTIMA/36046 - Microbiology Neisseria gonorrhoeae DNA probe NOT DETECTED NOT DETECTED Neisseria gonorrhoeae DNA probe NOT DETECTED NOT DETECTED Lab Report: CKI, Erythrocyte Sed Rate - Chemistry creatine kinase, serum 63 U/L 26-192 Encounters Code Encounter Date Provider Facility CPT-79246 Level 3 Est. Patient 20:19:50 ESCALATION ENGINEER Jacque Blas MD [facility] CPT-95650 Level 4 Est. Patient 17:32:49 ESCALATION ENGINEER Jacque Blas MD PhD [facility] CPT-43030 Level 3 Est. Patient 14:38:20 CDT Jacque Blas MD [facility] CPT-38235 Level 4 Est. Patient 20:19:14 CDT Jacque Blas MD [facility] CPT-07238 Level 3 Est. Patient 15:41:32 CDT Jacque Blas MD PhD [facility] CPT-33832 Level 3 Est. Patient 18:02:00 ESCALATION ENGINEER Jacque Blas MD PhD [facility] CPT-68142 Level 3 Est. Patient 21:41:26 ESCALATION ENGINEER Jacque Blas MD PhD [facility] CPT-86427 Level 4 Est. Patient 14:43:47 ESCALATION ENGINEER Jacque Blas MD [facility]-33154 Level 3 Est. Patient 20:16:54 ESCALATION ENGINEER Jacque Blas MD PhD [facility] CPT-05507 Level 3 Est. Patient 13:31:37 CDT Jacque Blas MD PhD [facility] CPT-49076 Level 3 New Patient 18:16:07 CDT Jacque Blas MD PhD [facility] Procedures Code Procedure Name Date Entry Date Standard Description CPT-92122 LS spine comp w obliq 15:53:02 ESCALATION ENGINEER CPT-32556 C-Spine Min 4V 15:53:02 ESCALATION ENGINEER CPT-16591 UHCG (floor use only) 14:15:45 CDT CPT-40318 UHCG (floor use only) 14:09:15 CDT CPT-J7302 Mirena IUD 13:30:58 CDT CPT-45956 Insertion of IUD 13:30:58 CDT CPT-OV Office Visit 13:30:58 CDT CPT-82411 Visit 10:48:09 CDT CPT-70612 Visit 15:34:57 CDT CPT-64777 Visit 15:25:55 CDT CPT-71586 Visit 13:58:45 CDT CPT-78979 Sono OB comp > 14 weeks 16:57:22 CDT CPT-LR Lesion Removal 09:33:27 CDT CPT-16813 Visit 12:50:42 CDT CPT-72515 Visit 18:34:25 CDT CPT-000 Give Appropriate Tetanus Booster 09:16:14 CDT CPT-36110 Administration single or combination vaccine inc oral 11 :36:32 CDT CPT-89908 Tdap 11:36:32 CDT CPT-56843 Visit 09:16:14 CDT CPT-16309 Visit 13:35:24 CDT CPT-78402 Sono OB comp > 14 weeks 11:46:07 CDT CPT-40492 Visit 17:08:15 CDT CPT-58297 Sono OB comp <14 weeks 15:47:19 ESCALATION ENGINEER CPT-12043 Visit 13:28:37 CDT CPT-50263 Spec Collection and Handling Fee 12:41:37 CDT CPT-68239 Visit 12:41:07 CDT CPT-84921 Visit 18:48:53 CDT CPT-62356 Visit 16:25:17 CDT CPT-75848 Sono OB comp > 14 weeks 11:38:18 CDT CPT-11922 Visit 13:36:17 CDT CPT-35848 Visit 13:48:22 CDT
--- OUTSIDE RECORDS SUMMARY | 2019-01-13 20:30 | XMS REPORT | Clinical Summary ---
[...] viral diseases UTI 599.0 Active Eva Alejo CHEF HEAD Urinary tract infection, site not specified , [...] tablet by mouth twice daily CIPROFLOXACIN HCL 68089592303 Active Eva Alejo APRN Active CYCLOBENZAPRINE HCL 10 MG TABS 1/2 - 1 tab by mouth three times daily if needed for spasms/pain CYCLOBENZAPRINE HCL 43434622488 No Longer Active Eva Alejo APRN Active NICODERM CQ 7 MG/24HR PT24 1 patch daily x 2 weeks - for smoking cessation NICOTINE 94802239256 Active Jacque Blas MD PhD Active NICODERM CQ 14 MG/24HR PT24 1 patch daily x 2 weeks, then decrease to 7's - for smoking cessation NICOTINE 44286108306 Active Jacque Blas MD PhD Active FLAGYL 500 MG ORAL TABS four tabs PO x 1 METRONIDAZOLE 58486249745 No Longer Active Jacque Blas MD PhD Active BACTRIM DS 800-160 MG ORAL TABS one tab PO BID x 3 days SULFAMETHOXAZOLE-TRIMETHOPRIM 30017806879 No Longer Active Chloe Wagner MD Active METHOCARBAMOL 500 MG ORAL TABS 1 pill by mouth up to four times daily if needed for muscle spasm/pain METHOCARBAMOL 78402282231 Active Jacque Blas MD PhD Active LAMICTAL 25 MG TABS 1 pill by mouth daily x 2 weeks, then 2 pills daily 07/26 LAMOTRIGINE 98457600872 No Longer Active Jacque Blas MD PhD Active LATUDA 40 MG TABS Take one by mouth daily LURASIDONE HCL 15409706814 Active Jacque Blas MD PhD Active HYDROCODONE-ACETAMINOPHEN 7.5-325 MG TABS 1 four times a day as needed for pain HYDROCODONE-ACETAMINOPHEN 46674622804 No Longer Active Jacque Blas MD PhD Active ROBAXIN 500 MG TAB 1-2 pills up to four times daily if needed for muscle spasms METHOCARBAMOL 04776607392 No Longer Active Jacque Blas MD PhD Active CITALOPRAM HYDROBROMIDE 10 MG TABS 1 pill daily, for depression/anxiety 02/09 CITALOPRAM HYDROBROMIDE 46765861492 No Longer Active Jacque Blas MD PhD Active HYDROCODONE-ACETAMINOPHEN 5-325 MG TABS 1 pill three times daily as needed for pain HYDROCODONE-ACETAMINOPHEN 80424624517 No Longer Active Jacque Blas MD PhD Active IBUPROFEN 600 MG TAB 1 pill four times daily, with food IBUPROFEN 65371857930 Active Jacque Blas MD PhD Active TRAMADOL HCL 50 MG TABS 1-2 tablets every 6 hours as needed for pain TRAMADOL HCL 92949589458 No Longer Active Jacque Blas MD PhD Active TYLENOL EXTRA STRENGTH 500 MG TABS 2 @ HS ACETAMINOPHEN 41541928995 No Longer Active Jacque Blas MD PhD Active SERTRALINE HCL 50 MG TABS 1 daily for depression SERTRALINE HCL 90852567423 No Longer Active Jacque Blas MD PhD Active BACTRIM DS 800-160 MG TAB 1 tab by mouth twice daily TRIMETHOPRIM-SULFAMETHOXAZOLE 39010846465 No Longer Active Eva Alejo APRN Active FLHANNAH GUMMIES OMEGA-3 DHA CHEW Take one by mouth daily PEDIATRIC MULTIPLE VIT-C-FA 74786466009 No Longer Active Jacque Blas MD PhD Active RANITIDINE HCL 150 MG CAPS 1 twice a day RANITIDINE HCL 98332088416 No Longer Active Jacque Blas MD PhD Active PNV-OMEGA 28-0.6-0.4-340 MG CAPS 1 pill by mouth daily PRENAT W/O [id number]-FA-OMEGA 57432315333 No Longer Active Jacque Blas MD PhD Active BACTRIM DS 800-160 MG TAB 1 tab by mouth twice daily TRIMETHOPRIM-SULFAMETHOXAZOLE 35637797681 No Longer Active Jacque Blas MD PhD Active METRONIDAZOLE 250 MG TABS 1 TID METRONIDAZOLE 21489576672 No Longer Active Jacque Blas MD PhD Active TRI-SPRINTEC 0.18/0.215/0.25 MG-35 MCG TABS 1 PO q Day NORGESTIM-ETH ESTRAD TRIPHASIC 58157199644 No Longer Active Jacque Blas MD PhD Active ALPRAZOLAM 0.25 MG TABS 1/2 tab to 1 tab PO TID PRN ALPRAZOLAM 15737421697 No Longer Active Jacque Blas MD PhD Active FLUOXETINE HCL 10 MG CAPS 2 PO q AM FLUOXETINE HCL 72587845030 No Longer Active Jacque Blas MD PhD Active ALPRAZOLAM 0.25 MG TABS 1/2 tab to 1 tab PO TID PRN ALPRAZOLAM 0.25 MG TABS 241351 ALPRAZOLAM Inactive TRI-SPRINTEC 0.18/0.215/0.25 MG-35 MCG TABS 1 PO q Day TRI-SPRINTEC 0.18/0.215/0.25 MG-35 MCG TABS 836844 NORGESTIM-ETH ESTRAD TRIPHASIC Inactive PNV-OMEGA 28-0.6-0.4-340 MG CAPS 1 pill by mouth daily PNV-OMEGA 28-0.6-0.4-340 MG CAPS PRENAT W/O [id number]-OMEGA Inactive RANITIDINE HCL 150 MG CAPS 1 twice a day RANITIDINE HCL 150 MG CAPS 897240 RANITIDINE HCL Inactive FLINSTONES GUMMIES OMEGA-3 DHA CHEW Take one by mouth daily FLINSTONES GUMMIES OMEGA-3 DHA CHEW PEDIATRIC MULTIPLE VIT-C-FA Inactive SERTRALINE HCL 50 MG TABS 1 daily for depression SERTRALINE HCL 50 MG TABS 881757 SERTRALINE HCL Inactive TYLENOL EXTRA STRENGTH 500 MG TABS 2 @ HS TYLENOL EXTRA STRENGTH 500 MG TABS 164818 ACETAMINOPHEN Inactive TRAMADOL HCL 50 MG TABS 1-2 tablets every 6 hours as needed for pain TRAMADOL HCL 50 MG TABS 780987 TRAMADOL HCL Inactive HYDROCODONE-ACETAMINOPHEN 5-325 MG TABS 1 pill three times daily as needed for pain HYDROCODONE-ACETAMINOPHEN 5-325 MG TABS 449818 HYDROCODONE-ACETAMINOPHEN Inactive CITALOPRAM HYDROBROMIDE 10 MG TABS 1 pill daily, for depression/anxiety 02/09 CITALOPRAM HYDROBROMIDE 10 MG TABS 740390 CITALOPRAM HYDROBROMIDE Inactive ROBAXIN 500 MG TAB 1-2 pills up to four times daily if needed for muscle spasms ROBAXIN 500 MG TAB 754110 METHOCARBAMOL Inactive HYDROCODONE-ACETAMINOPHEN 7.5-325 MG TABS 1 four times a day as needed for pain HYDROCODONE-ACETAMINOPHEN 7.5-325 MG TABS 772291 HYDROCODONE-ACETAMINOPHEN Inactive LAMICTAL 25 MG TABS 1 pill by mouth daily x 2 weeks, then 2 pills daily 07/26 LAMICTAL 25 MG TABS 177067 LAMOTRIGINE Inactive FLAGYL 500 MG ORAL TABS four tabs PO x 1 FLAGYL 500 MG ORAL TABS 734536 METRONIDAZOLE Inactive CYCLOBENZAPRINE HCL 10 MG TABS 1/2 - 1 tab by mouth three times daily if needed for spasms/pain CYCLOBENZAPRINE HCL 10 MG TABS 963708 CYCLOBENZAPRINE HCL Inactive FLUOXETINE HCL 10 MG CAPS 2 PO q AM FLUOXETINE HCL 10 MG CAPS 045591 FLUOXETINE HCL Inactive METRONIDAZOLE 250 MG TABS 1 TID METRONIDAZOLE 250 MG TABS 586916 METRONIDAZOLE Inactive BACTRIM DS 800-160 MG TAB [...] reduced Diphtheria, and acellular Pertussis Immunization) Adacel [[id number]] tetanus toxoid, reduced diphtheria toxoid, and acellular [...] Value Unit Range Description Lab Report: Chlamydia/GC APTIMA/24945 - Lab chlamydia DNA probe NOT DETECTED NOT DETECTED chlamydia DNA probe NOT DETECTED NOT DETECTED chlamydia DNA probe NOT DETECTED NOT DETECTED Lab Report: Chlamydia/GC APTIMA/30377 - Microbiology Neisseria gonorrhoeae DNA probe NOT DETECTED NOT DETECTED Neisseria gonorrhoeae DNA probe NOT DETECTED NOT DETECTED Neisseria gonorrhoeae DNA probe NOT DETECTED NOT DETECTED Lab Report: Chlamydia/GC APTIMA/60111, Drug Abuse Pnl 10-50/54978 - Lab chlamydia DNA probe NOT DETECTED NOT DETECTED Lab Report: Chlamydia/GC APTIMA/09227, Drug Abuse Pnl 10-50/47355 - Microbiology Neisseria gonorrhoeae DNA probe NOT [...] Negative Encounters Code Encounter Date Provider Facility CPT-97076 Level 3 Est. Patient 20:19:50 ENVIRONMENTAL HEALTH SPECIALIST Jacque Blas MD [facility] CPT-57616 Level 4 Est. Patient 17:32:49 ENVIRONMENTAL HEALTH SPECIALIST Jacque Blas MD [facility] CPT-35300 Level 3 Est. Patient 14:38:20 CDT Jacque Blas MD [facility] CPT-98655 Level 4 Est. Patient 20:19:14 CDT Jacque Blas MD [facility] CPT-50246 Level 3 Est. Patient 15:41:32 CDT Jacque Blas MD [facility] CPT-87807 Level 3 Est. Patient 18:02:00 ENVIRONMENTAL HEALTH SPECIALIST Jacque Blas MD [facility] CPT-26476 Level 3 Est. Patient 21:41:26 ENVIRONMENTAL HEALTH SPECIALIST Jacque Blas MD [facility] CPT-61949 Level 4 Est. Patient 14:43:47 ENVIRONMENTAL HEALTH SPECIALIST Jacque Blas MD [facility] CPT-82987 Level 3 Est. Patient 20:16:54 ENVIRONMENTAL HEALTH SPECIALIST Jacque Blas MD [facility] CPT-53130 Level 3 Est. Patient 13:31:37 CDT Jacque Blas MD [facility] CPT-81966 Level 3 New Patient 18:16:07 CDT Jacque Blas MD [facility] Procedures Code Procedure Name Date Entry Date Standard Description CPT-87260 Fluzone Quadrivalent Intramuscular Suspension 0.5 ML 16: 31:47 ENVIRONMENTAL HEALTH SPECIALIST CPT-16060 Immunization Single Admin 16:31:47 ENVIRONMENTAL HEALTH SPECIALIST CPT-67959 Immunization Single Admin 13:26:18 ENVIRONMENTAL HEALTH SPECIALIST CPT-83020 Fluzone Intramuscular Injectable 13:26:18 ENVIRONMENTAL HEALTH SPECIALIST CPT-57733 Fluzone Thim Free 36mo and older 12:03:33 ENVIRONMENTAL HEALTH SPECIALIST CPT-60038 UHCG (floor use only) 11:49:41 ENVIRONMENTAL HEALTH SPECIALIST CPT-OV Office Visit 11:49:41 ENVIRONMENTAL HEALTH SPECIALIST CPT-08960 LS spine comp w obliq 15:53:02 ENVIRONMENTAL HEALTH SPECIALIST CPT-49070 C-Spine Min 4V 15:53:02 ENVIRONMENTAL HEALTH SPECIALIST CPT-68562 UHCG (floor use only) 14:15:45 CDT CPT-48970 UHCG (floor use only) 14:09:15 CDT CPT-J7302 Mirena IUD 13:30:58 CDT CPT-94758 Insertion of IUD 13:30:58 CDT CPT-OV Office Visit 13:30:58 CDT CPT-71790 Visit 10:48:09 CDT CPT-34170 Visit 15:34:57 CDT CPT-03530 Visit 15:25:55 CDT CPT-39541 Visit 13:58:45 CDT CPT-65881 Sono OB comp > 14 weeks 16:57:22 CDT CPT-LR Lesion Removal 09:33:27 CDT CPT-16936 Visit 12:50:42 CDT CPT-90893 Visit 18:34:25 CDT CPT-000 Give Appropriate Tetanus Booster 09:16:14 CDT CPT-76453 Administration single or combination vaccine inc oral 11 :36:32 CDT CPT-58251 Tdap 11:36:32 CDT CPT-35338 Visit 09:16:14 CDT CPT-39296 Visit 13:35:24 CDT CPT-37922 Sono OB comp > 14 weeks 11:46:07 CDT CPT-20280 Visit 17:08:15 CDT CPT-71999 Sono OB comp <14 weeks 15:47:19 ENVIRONMENTAL HEALTH SPECIALIST CPT-75457 Visit 13:28:37 CDT CPT-19551 Spec Collection and Handling Fee 12:41:37 CDT CPT-54459 Visit 12:41:07 CDT CPT-40943 Visit 18:48:53 CDT CPT-56576 Visit 16:25:17 CDT CPT-73195 Sono OB comp > 14 weeks 11:38:18 CDT CPT-56663 Visit 13:36:17 CDT CPT-59716 Visit 13:48:22 CDT
--- OUTSIDE RECORDS SUMMARY | 2019-01-13 20:31 | XMS REPORT | Clinical Summary ---
Author Author Admin, MARCO ANTONIO [facility] Address Unknown Phone Unavailable Allergies, Adverse Reactions, Alerts Allergy Name Reaction Description Start Date Severity Status Provider No Known Allergies CONRAD Rayo Conditions or Problems Problem Name Problem Code [...] normal OTHER SPECIFED COMPLICATION ANTEPARTUM 646.83 Resolved Jacuqe Blas MD PhD Other specified complications of [...] viral diseases UTI 599.0 Active Eva Alejo [employer] Urinary tract infection, site not specified Back pain, lumbar 724.2 Active Eva Alejo [employer] Lumbago , NORMAL ICD-V22.2 Inactive Jacque Blas MD [...] Generic Name ND Status Provider Patient Instruction CYCLOBENZAPRINE HCL 10 MG TABS 1/2 to 1 tablet by mouth q hs, prn CYCLOBENZAPRINE HCL 28142985400 Active Eva Aljeo APRN Active MEDROL (DIAN) 4 MG TABS 6 pills x 1 day, then 5 pills x 1 day then 4 pills x 1 day, then 3 pills x 1 day, then 2 pills x 1 day, then 1 pill x 1 day, then stop [facility] [id number] No Longer Active Eva Alejo APRN Active SEROQUEL 200 MG ORAL TABS take 1 tab daily QUETIAPINE FUMARATE 38745471452 Active Eva Alejo APRN Active CIPRO 500 MG TAB 1 tablet by mouth twice daily CIPROFLOXACIN HCL 23398200428 Active Rajllina Sukumarl [employer] Active CYCLOBENZAPRINE HCL 10 MG TABS 1/2 - 1 tab by mouth three times daily if needed for spasms/pain CYCLOBENZAPRINE HCL 16047957807 No Longer Active Eva Alejo APRN Active NICODERM CQ 7 MG/24HR PT24 1 patch daily x 2 weeks - for smoking cessation NICOTINE 28486775281 Active Jacque Blas MD PhD Active NICODERM CQ 14 MG/24HR PT24 1 patch daily x 2 weeks, then decrease to 7's - for smoking cessation NICOTINE 42963481237 Active Jacque Blas MD PhD Active FLAGYL 500 MG ORAL TABS four tabs PO x 1 METRONIDAZOLE 15057911386 No Longer Active Jacque Blas MD PhD Active BACTRIM DS 800-160 MG ORAL TABS one tab PO BID x 3 days SULFAMETHOXAZOLE-TRIMETHOPRIM 38011869308 No Longer Active Chloe Wagner MD Active METHOCARBAMOL 500 MG ORAL TABS 1 pill by mouth up to four times daily if needed for muscle spasm/pain METHOCARBAMOL 51893853479 Active Jacque Blas MD PhD Active LAMICTAL 25 MG TABS 1 pill by mouth daily x 2 weeks, then 2 pills daily 07/26 LAMOTRIGINE 84684700155 No Longer Active Jacque Blas MD PhD Active LATUDA 40 MG TABS Take one by mouth daily LURASIDONE HCL 46947004798 Active Jacque Blas MD PhD Active HYDROCODONE-ACETAMINOPHEN 7.5-325 MG TABS 1 four times a day as needed for pain HYDROCODONE-ACETAMINOPHEN 91810292805 No Longer Active Jacque Blas MD PhD Active ROBAXIN 500 MG TAB 1-2 pills up to four times daily if needed for muscle spasms METHOCARBAMOL 39980668653 No Longer Active Jacque Blas MD PhD Active CITALOPRAM HYDROBROMIDE 10 MG TABS 1 pill daily, for depression/anxiety 02/09 CITALOPRAM HYDROBROMIDE 30542890929 No Longer Active Jacque Blas MD PhD Active HYDROCODONE-ACETAMINOPHEN 5-325 MG TABS 1 pill three times daily as needed for pain HYDROCODONE-ACETAMINOPHEN 64340438996 No Longer Active Jacque Blas MD PhD Active IBUPROFEN 600 MG TAB 1 pill four times daily, with food IBUPROFEN 63166703445 Active Jacque Blas MD PhD Active TRAMADOL HCL 50 MG TABS 1-2 tablets every 6 hours as needed for pain TRAMADOL HCL 06375506694 No Longer Active Jacque Blas MD PhD Active TYLENOL EXTRA STRENGTH 500 MG TABS 2 @ HS ACETAMINOPHEN 18451629851 No Longer Active Jacque Blas MD PhD Active SERTRALINE HCL 50 MG TABS 1 daily for depression SERTRALINE HCL 48025467891 No Longer Active Jacque Blas MD PhD Active BACTRIM DS 800-160 MG TAB 1 tab by mouth twice daily TRIMETHOPRIM-SULFAMETHOXAZOLE 89199523535 No Longer Active Eva Alejo APRN Active FLINSTON GUMMIES OMEGA-3 DHA CHEW Take one by mouth daily PEDIATRIC MULTIPLE VIT-C-FA 21427619822 No Longer Active Jacque Blas MD PhD Active RANITIDINE HCL 150 MG CAPS 1 twice a day RANITIDINE HCL 51834159459 No Longer Active Jacque Blas MD PhD Active PNV-OMEGA 28-0.6-0.4-340 MG CAPS 1 pill by mouth daily PRENAT W/O [id number]-FA-OMEGA 84103109982 No Longer Active Jacque Blas MD PhD Active BACTRIM DS 800-160 MG TAB 1 tab by mouth twice daily TRIMETHOPRIM-SULFAMETHOXAZOLE 14858753738 No Longer Active Jacque Blas MD PhD Active METRONIDAZOLE 250 MG TABS 1 TID METRONIDAZOLE 24506884055 No Longer Active Jacque Blas MD PhD Active TRI-SPRINTEC 0.18/0.215/0.25 MG-35 MCG TABS 1 PO q Day NORGESTIM-ETH ESTRAD TRIPHASIC 00875050662 No Longer Active Jacque Blas MD PhD Active ALPRAZOLAM 0.25 MG TABS 1/2 tab to 1 tab PO TID PRN ALPRAZOLAM 90975593262 No Longer Active Jacque Blas MD PhD Active FLUOXETINE HCL 10 MG CAPS 2 PO q AM FLUOXETINE HCL 42629303686 No Longer Active Jacque Blas MD PhD Active ALPRAZOLAM 0.25 MG TABS 1/2 tab to 1 tab PO TID PRN ALPRAZOLAM 0.25 MG TABS 227678 ALPRAZOLAM Inactive TRI-SPRINTEC 0.18/0.215/0.25 MG-35 MCG TABS 1 PO q Day TRI-SPRINTEC 0.18/0.215/0.25 MG-35 MCG TABS 206400 NORGESTIM-ETH ESTRAD TRIPHASIC Inactive PNV-OMEGA 28-0.6-0.4-340 MG CAPS 1 pill by mouth daily PNV-OMEGA 28-0.6-0.4-340 MG CAPS PRENAT W/O [id number]-[id number] Inactive RANITIDINE HCL 150 MG CAPS 1 twice a day RANITIDINE HCL 150 MG CAPS 484586 RANITIDINE HCL Inactive FLINSTONES GUMMIES OMEGA-3 DHA CHEW Take one by mouth daily FLINSTONES GUMMIES OMEGA-3 DHA CHEW PEDIATRIC MULTIPLE VIT-C-FA Inactive SERTRALINE HCL 50 MG TABS 1 daily for depression SERTRALINE HCL 50 MG TABS 423026 SERTRALINE HCL Inactive TYLENOL EXTRA STRENGTH 500 MG TABS 2 @ HS TYLENOL EXTRA STRENGTH 500 MG TABS 295276 ACETAMINOPHEN Inactive TRAMADOL HCL 50 MG TABS 1-2 tablets every 6 hours as needed for pain TRAMADOL HCL 50 MG TABS 187574 TRAMADOL HCL Inactive HYDROCODONE-ACETAMINOPHEN 5-325 MG TABS 1 pill three times daily as needed for pain HYDROCODONE-ACETAMINOPHEN 5-325 MG TABS 630323 HYDROCODONE-ACETAMINOPHEN Inactive CITALOPRAM HYDROBROMIDE 10 MG TABS 1 pill daily, for depression/anxiety 02/09 CITALOPRAM HYDROBROMIDE 10 MG TABS 585686 CITALOPRAM HYDROBROMIDE Inactive ROBAXIN 500 MG TAB 1-2 pills up to four times daily if needed for muscle spasms ROBAXIN 500 MG TAB 462171 METHOCARBAMOL Inactive HYDROCODONE-ACETAMINOPHEN 7.5-325 MG TABS 1 four times a day as needed for pain HYDROCODONE-ACETAMINOPHEN 7.5-325 MG TABS 774173 HYDROCODONE-ACETAMINOPHEN Inactive LAMICTAL 25 MG TABS 1 pill by mouth daily x 2 weeks, then 2 pills daily 07/26 LAMICTAL 25 MG TABS 219995 LAMOTRIGINE Inactive FLAGYL 500 MG ORAL TABS four tabs PO x 1 FLAGYL 500 MG ORAL TABS 069965 METRONIDAZOLE Inactive CYCLOBENZAPRINE HCL 10 MG TABS 1/2 - 1 tab by mouth three times daily if needed for spasms/pain CYCLOBENZAPRINE HCL 10 MG TABS 047635 CYCLOBENZAPRINE HCL Inactive FLUOXETINE HCL 10 MG CAPS 2 PO q AM FLUOXETINE HCL 10 MG CAPS 655648 FLUOXETINE HCL Inactive METRONIDAZOLE 250 MG TABS 1 TID METRONIDAZOLE 250 MG TABS 690637 METRONIDAZOLE Inactive BACTRIM DS 800-160 MG TAB [...] reduced Diphtheria, and acellular Pertussis Immunization) Adacel [XGD035] tetanus toxoid, reduced diphtheria toxoid, and acellular pertussis vaccine, adsorbed hepatitis B vaccine series yes hepatitis B vaccine, unspecified formulation Vital Signs Date Name Value Unit Range Description blood pressure, diastolic - 8462-4 77 mm[Hg] [...] E&M - 3141-9 181 [lb_av] Weight Measured Diagnostic Results Date Name Value Unit Range Description Lab Report: Chlamydia/GC APTIMA/72593 - Lab chlamydia DNA probe NOT DETECTED NOT DETECTED chlamydia DNA probe NOT DETECTED NOT DETECTED chlamydia DNA probe NOT DETECTED NOT DETECTED chlamydia DNA probe NOT DETECTED NOT DETECTED Lab Report: Chlamydia/GC APTIMA/36775 - Microbiology Neisseria gonorrhoeae DNA probe NOT DETECTED NOT DETECTED Neisseria gonorrhoeae DNA probe NOT DETECTED NOT DETECTED Neisseria gonorrhoeae DNA probe NOT DETECTED NOT DETECTED Neisseria gonorrhoeae DNA probe NOT DETECTED NOT DETECTED Lab Report: Chlamydia/GC APTIMA/72721, Drug Abuse Pnl 10-50/51037 - Lab chlamydia DNA probe NOT DETECTED NOT DETECTED Lab Report: Chlamydia/GC APTIMA/17017, Drug Abuse Pnl 10-50/55521 - Microbiology Neisseria gonorrhoeae DNA probe NOT [...] Negative Encounters Code Encounter Date Provider Facility CPT-74585 Level 3 Est. Patient 20:19:50 APPLIANCE SERVICER Jacque Blas MD PhD [facility] CPT-72927 Level 4 Est. Patient 17:32:49 APPLIANCE SERVICER Jacque Blas MD PhD [facility] CPT-87913 Level 3 Est. Patient 14:38:20 CDT Jacque Blas MD PhD [facility] CPT-13076 Level 4 Est. Patient 20:19:14 CDT Jacque Blas MD [facility] CPT-07646 Level 3 Est. Patient 15:41:32 CDT Jacque Blas MD [facility] CPT-56281 Level 3 Est. Patient 18:02:00 APPLIANCE SERVICER Jacque Blas MD [facility] CPT-18432 Level 3 Est. Patient 21:41:26 APPLIANCE SERVICER Jacque Blas MD [facility] CPT-70581 Level 4 Est. Patient 14:43:47 APPLIANCE SERVICER Jacque Blas MD [facility] CPT-24800 Level 3 Est. Patient 20:16:54 APPLIANCE SERVICER Jacque Blas MD [facility] CPT-07133 Level 3 Est. Patient 13:31:37 CDT Jacque Blas MD [facility] CPT-36117 Level 3 New Patient 18:16:07 CDT Jacque Blas MD [facility] Procedures Code Procedure Name Date Entry Date Standard Description CPT-69030 Fluzone Quadrivalent Intramuscular Suspension 0.5 ML 16: 31:47 APPLIANCE SERVICER CPT-46677 Immunization Single Admin 16:31:47 APPLIANCE SERVICER CPT-60414 Immunization Single Admin 13:26:18 APPLIANCE SERVICER CPT-04363 Fluzone Intramuscular Injectable 13:26:18 APPLIANCE SERVICER CPT-68845 Fluzone Thim Free 36mo and older 12:03:33 APPLIANCE SERVICER CPT-13675 UHCG (floor use only) 11:49:41 APPLIANCE SERVICER CPT-OV Office Visit 11:49:41 APPLIANCE SERVICER CPT-65980 LS spine comp w obliq 15:53:02 APPLIANCE SERVICER CPT-14012 C-Spine Min 4V 15:53:02 APPLIANCE SERVICER CPT-86405 UHCG (floor use only) 14:15:45 CDT CPT-15149 UHCG (floor use only) 14:09:15 CDT CPT-J7302 Mirena IUD 13:30:58 CDT CPT-75679 Insertion of IUD 13:30:58 CDT CPT-OV Office Visit 13:30:58 CDT CPT-63331 Visit 10:48:09 CDT CPT-80725 Visit 15:34:57 CDT CPT-60944 Visit 15:25:55 CDT CPT-85652 Visit 13:58:45 CDT CPT-66427 Sono OB comp > 14 weeks 16:57:22 CDT CPT-LR Lesion Removal 09:33:27 CDT CPT-79703 Visit 12:50:42 CDT CPT-15620 Visit 18:34:25 CDT CPT-000 Give Appropriate Tetanus Booster 09:16:14 CDT CPT-25495 Administration single or combination vaccine inc oral 11 :36:32 CDT CPT-54216 Tdap 11:36:32 CDT CPT-60526 Visit 09:16:14 CDT CPT-66966 Visit 13:35:24 CDT CPT-88712 Sono OB comp > 14 weeks 11:46:07 CDT CPT-55462 Visit 17:08:15 CDT CPT-16227 Sono OB comp <14 weeks 15:47:19 APPLIANCE SERVICER CPT-14575 Visit 13:28:37 CDT CPT-78134 Spec Collection and Handling Fee 12:41:37 CDT CPT-00443 Visit 12:41:07 CDT CPT-91998 Visit 18:48:53 CDT CPT-01318 Visit 16:25:17 CDT CPT-80001 Sono OB comp > 14 weeks 11:38:18 CDT CPT-79873 Visit 13:36:17 CDT CPT-16535 Visit 13:48:22 CDT
--- OUTSIDE RECORDS SUMMARY | 2019-01-13 20:31 | XMS REPORT | Clinical Summary ---
Author Author Admin, MARCO ANTONIO [facility] Address Unknown Phone Unavailable Allergies, Adverse [...] Generic Name NDC Status Provider Patient Instruction METHOCARBAMOL 500 MG ORAL TABS 1 pill by mouth up to four times daily if needed for muscle spasm/pain METHOCARBAMOL 13981096464 Active Jacque Blas MD PhD Active CYCLOBENZAPRINE HCL 10 MG TABS 1/2 - 1 tab by mouth three times daily if needed for spasms/pain CYCLOBENZAPRINE HCL 99236080031 Active Jacque Blas MD PhD Active LAMICTAL 25 MG TABS 1 pill by mouth daily x 2 weeks, then 2 pills daily 07/26 LAMOTRIGINE 78771236450 No Longer Active Jacque Blas MD PhD Active LATUDA 40 MG TABS Take one by mouth daily LURASIDONE HCL 20396447360 Active Jacque Blas MD PhD Active HYDROCODONE-ACETAMINOPHEN 7.5-325 MG TABS 1 four times a day as needed for pain HYDROCODONE-ACETAMINOPHEN 78882470844 No Longer Active Jacque Blas MD PhD Active ROBAXIN 500 MG TAB 1-2 pills up to four times daily if needed for muscle spasms METHOCARBAMOL 08184368477 No Longer Active Jacque Blas MD PhD Active CITALOPRAM HYDROBROMIDE 10 MG TABS 1 pill daily, for depression/anxiety 02/09 CITALOPRAM HYDROBROMIDE 42594255674 No Longer Active Jacque Blas MD PhD Active HYDROCODONE-ACETAMINOPHEN 5-325 MG TABS 1 pill three times daily as needed for pain HYDROCODONE-ACETAMINOPHEN 69475020821 No Longer Active Jacque Blas MD PhD Active IBUPROFEN 600 MG TAB 1 pill four times daily, with food IBUPROFEN 68484147645 Active Jacque Blas MD PhD Active TRAMADOL HCL 50 MG TABS 1-2 tablets every 6 hours as needed for pain TRAMADOL HCL 18827198906 No Longer Active Jacque Blas MD PhD Active TYLENOL EXTRA STRENGTH 500 MG TABS 2 @ HS ACETAMINOPHEN 78274360341 No Longer Active Jacque Blas MD PhD Active SERTRALINE HCL 50 MG TABS 1 daily for depression SERTRALINE HCL 07748919007 No Longer Active Jacque Blas MD PhD Active BACTRIM DS 800-160 MG TAB 1 tab by mouth twice daily TRIMETHOPRIM-SULFAMETHOXAZOLE 03177836778 No Longer Active Eva Alejo APRN Active FLINSTONES GUMMIES OMEGA-3 DHA CHEW Take one by mouth daily PEDIATRIC MULTIPLE VIT-C-FA 56550118822 No Longer Active Jacque Blas MD PhD Active RANITIDINE HCL 150 MG CAPS 1 twice a day RANITIDINE HCL 22888162557 No Longer Active Jacque Blas MD PhD Active PNV-OMEGA 28-0.6-0.4-340 MG CAPS 1 pill by mouth daily PRENAT W/O [id number]-FA-OMEGA 54531311709 No Longer Active Jacque Blas MD PhD Active BACTRIM DS 800-160 MG TAB 1 tab by mouth twice daily TRIMETHOPRIM-SULFAMETHOXAZOLE 96150885025 No Longer Active Jacque Blas MD PhD Active METRONIDAZOLE 250 MG TABS 1 TID METRONIDAZOLE 62530071112 No Longer Active Jacque Blas MD PhD Active TRI-SPRINTEC 0.18/0.215/0.25 MG-35 MCG TABS 1 PO q Day NORGESTIM-ETH ESTRAD TRIPHASIC 40106112737 No Longer Active Jacque Blas MD PhD Active ALPRAZOLAM 0.25 MG TABS 1/2 tab to 1 tab PO TID PRN ALPRAZOLAM 87634476148 No Longer Active Jacque Blas MD PhD Active FLUOXETINE HCL 10 MG CAPS 2 PO q AM FLUOXETINE HCL 41005892123 No Longer Active Jacqeu Blas MD PhD Active ALPRAZOLAM 0.25 MG TABS 1/2 tab to 1 tab PO TID PRN ALPRAZOLAM 0.25 MG TABS 400780 ALPRAZOLAM Inactive TRI-SPRINTEC 0.18/0.215/0.25 MG-35 MCG TABS 1 PO q Day TRI-SPRINTEC 0.18/0.215/0.25 MG-35 MCG TABS 846800 NORGESTIM-ETH ESTRAD TRIPHASIC Inactive PNV-OMEGA 28-0.6-0.4-340 MG CAPS 1 pill by mouth daily PNV-OMEGA 28-0.6-0.4-340 MG CAPS PRENAT W/O [id number]-OMEGA Inactive RANITIDINE HCL 150 MG CAPS 1 twice a day RANITIDINE HCL 150 MG CAPS 050282 RANITIDINE HCL Inactive FLINSTONES GUMMIES OMEGA-3 DHA CHEW Take one by mouth daily FLINSTONES GUMMIES OMEGA-3 DHA CHEW PEDIATRIC MULTIPLE VIT-C-FA Inactive SERTRALINE HCL 50 MG TABS 1 daily for depression SERTRALINE HCL 50 MG TABS 702319 SERTRALINE HCL Inactive TYLENOL EXTRA STRENGTH 500 MG TABS 2 @ HS TYLENOL EXTRA STRENGTH 500 MG TABS 725978 ACETAMINOPHEN Inactive TRAMADOL HCL 50 MG TABS 1-2 tablets every 6 hours as needed for pain TRAMADOL HCL 50 MG TABS 237796 TRAMADOL HCL Inactive HYDROCODONE-ACETAMINOPHEN 5-325 MG TABS 1 pill three times daily as needed for pain HYDROCODONE-ACETAMINOPHEN 5-325 MG TABS 729970 HYDROCODONE-ACETAMINOPHEN Inactive CITALOPRAM HYDROBROMIDE 10 MG TABS 1 pill daily, for depression/anxiety 02/09 CITALOPRAM HYDROBROMIDE 10 MG TABS 892893 CITALOPRAM HYDROBROMIDE Inactive ROBAXIN 500 MG TAB 1-2 pills up to four times daily if needed for muscle spasms ROBAXIN 500 MG TAB 410489 METHOCARBAMOL Inactive HYDROCODONE-ACETAMINOPHEN 7.5-325 MG TABS 1 four times a day as needed for pain HYDROCODONE-ACETAMINOPHEN 7.5-325 MG TABS 079927 HYDROCODONE-ACETAMINOPHEN Inactive LAMICTAL 25 MG TABS 1 pill by mouth daily x 2 weeks, then 2 pills daily 07/26 LAMICTAL 25 MG TABS 519843 LAMOTRIGINE Inactive FLUOXETINE HCL 10 MG CAPS 2 PO q AM FLUOXETINE HCL 10 MG CAPS 493116 FLUOXETINE HCL Inactive METRONIDAZOLE 250 MG TABS 1 TID METRONIDAZOLE 250 MG TABS 206649 METRONIDAZOLE Inactive BACTRIM DS 800-160 MG TAB [...] reduced Diphtheria, and acellular Pertussis Immunization) Adacel [TAH630] tetanus toxoid, reduced diphtheria toxoid, and acellular [...] Value Unit Range Description Lab Report: Chlamydia/GC APTIMA/97649 - Lab chlamydia DNA probe NOT DETECTED NOT DETECTED chlamydia DNA probe NOT DETECTED NOT DETECTED Lab Report: Chlamydia/GC APTIMA/07429 - Microbiology Neisseria gonorrhoeae DNA probe NOT DETECTED NOT DETECTED Neisseria gonorrhoeae DNA probe NOT DETECTED NOT DETECTED Lab Report: CKI, Erythrocyte Sed Rate - Chemistry creatine kinase, serum 63 U/L 26-192 Encounters Code Encounter Date Provider Facility CPT-06178 Level 3 Est. Patient 20:19:50 HOME ECONOMIST Jacque Blas MD PhD [facility] CPT-34010 Level 4 Est. Patient 17:32:49 HOME ECONOMIST Jacque Blas MD PhD [facility] CPT-84349 Level 3 Est. Patient 14:38:20 CDT Jacque Blas MD PhD [facility] CPT-52368 Level 4 Est. Patient 20:19:14 CDT Jacque Blas MD [facility] CPT-70129 Level 3 Est. Patient 15:41:32 CDT Jacque Blas MD [facility] CPT-15298 Level 3 Est. Patient 18:02:00 HOME ECONOMIST Jacque Blas MD [facility] CPT-45782 Level 3 Est. Patient 21:41:26 HOME ECONOMIST Jacque Blas MD [facility] CPT-47817 Level 4 Est. Patient 14:43:47 HOME ECONOMIST Jacque Blas MD [facility] CPT-74913 Level 3 Est. Patient 20:16:54 HOME ECONOMIST Jacque Blas MD [facility] CPT-36801 Level 3 Est. Patient 13:31:37 CDT Jacque Blas MD [facility] CPT-80159 Level 3 New Patient 18:16:07 CDT Jacque Blas MD [facility] Procedures Code Procedure Name Date Entry Date Standard Description CPT-89416 Immunization Single Admin 13:26:18 HOME ECONOMIST CPT-38559 Fluzone Intramuscular Injectable 13:26:18 HOME ECONOMIST CPT-22655 Fluzone Thim Free 36mo and older 12:03:33 HOME ECONOMIST CPT-87208 UHCG (floor use only) 11:49:41 HOME ECONOMIST CPT-OV Office Visit 11:49:41 HOME ECONOMIST CPT-13418 LS spine comp w obliq 15:53:02 HOME ECONOMIST CPT-66899 C-Spine Min 4V 15:53:02 HOME ECONOMIST CPT-20529 UHCG (floor use only) 14:15:45 CDT CPT-51516 UHCG (floor use only) 14:09:15 CDT CPT-J7302 Mirena IUD 13:30:58 CDT CPT-04429 Insertion of IUD 13:30:58 CDT CPT-OV Office Visit 13:30:58 CDT CPT-44284 Visit 10:48:09 CDT CPT-18993 Visit 15:34:57 CDT CPT-42123 Visit 15:25:55 CDT CPT-46559 Visit 13:58:45 CDT CPT-03196 Sono OB comp > 14 weeks 16:57:22 CDT CPT-LR Lesion Removal 09:33:27 CDT CPT-23193 Visit 12:50:42 CDT CPT-91990 Visit 18:34:25 CDT CPT-000 Give Appropriate Tetanus Booster 09:16:14 CDT CPT-24441 Administration single or combination vaccine inc oral 11 :36:32 CDT CPT-50356 Tdap 11:36:32 CDT CPT-84676 Visit 09:16:14 CDT CPT-18255 Visit 13:35:24 CDT CPT-86330 Sono OB comp > 14 weeks 11:46:07 CDT CPT-66873 Visit 17:08:15 CDT CPT-38222 Sono OB comp <14 weeks 15:47:19 HOME ECONOMIST CPT-64061 Visit 13:28:37 CDT CPT-80776 Spec Collection and Handling Fee 12:41:37 CDT CPT-85066 Visit 12:41:07 CDT CPT-72776 Visit 18:48:53 CDT CPT-92401 Visit 16:25:17 CDT CPT-89291 Sono OB comp > 14 weeks 11:38:18 CDT CPT-68477 Visit 13:36:17 CDT CPT-16243 Visit 13:48:22 CDT
--- OUTSIDE RECORDS SUMMARY | 2019-01-13 20:32 | XMS REPORT | Clinical Summary ---
Author Author Admin, MARCO ANTONIO Gardiner [facility] Address Unknown Phone Unavailable Allergies, [...] tab PO BID x 3 days SULFAMETHOXAZOLE-TRIMETHOPRIM 94843122068 Active Chloe Wagner MD Active FLAGYL 500 MG ORAL TABS four tabs PO x 1 METRONIDAZOLE 22515177529 Active Chloe Wagner MD Active METHOCARBAMOL 500 MG ORAL TABS 1 pill by mouth up to four times daily if needed for muscle spasm/pain METHOCARBAMOL 70429744578 Active Jacque Blas MD PhD Active CYCLOBENZAPRINE HCL 10 MG TABS 1/2 - 1 tab by mouth three times daily if needed for spasms/pain CYCLOBENZAPRINE HCL 93158978893 Active Jacque Blas MD PhD Active LAMICTAL 25 MG TABS 1 pill by mouth daily x 2 weeks, then 2 pills daily 07/26 LAMOTRIGINE 87422774541 No Longer Active Jacque Blas MD PhD Active LATUDA 40 MG TABS Take one by mouth daily LURASIDONE HCL 72603970290 Active Jacque Blas MD PhD Active HYDROCODONE-ACETAMINOPHEN 7.5-325 MG TABS 1 four times a day as needed for pain HYDROCODONE-ACETAMINOPHEN 99453424805 No Longer Active Jacque Blas MD PhD Active ROBAXIN 500 MG TAB 1-2 pills up to four times daily if needed for muscle spasms METHOCARBAMOL 60052054828 No Longer Active Jacque Blas MD PhD Active CITALOPRAM HYDROBROMIDE 10 MG TABS 1 pill daily, for depression/anxiety 02/09 CITALOPRAM HYDROBROMIDE 73740501073 No Longer Active Jacuqe Blas MD PhD Active HYDROCODONE-ACETAMINOPHEN 5-325 MG TABS 1 pill three times daily as needed for pain HYDROCODONE-ACETAMINOPHEN 39628084300 No Longer Active Jacque Blas MD PhD Active IBUPROFEN 600 MG TAB 1 pill four times daily, with food IBUPROFEN 13722449140 Active Jacque Blas MD PhD Active TRAMADOL HCL 50 MG TABS 1-2 tablets every 6 hours as needed for pain TRAMADOL HCL 38522223143 No Longer Active Jacque Blas MD PhD Active TYLENOL EXTRA STRENGTH 500 MG TABS 2 @ HS ACETAMINOPHEN 91472920412 No Longer Active Jacque Blas MD PhD Active SERTRALINE HCL 50 MG TABS 1 daily for depression SERTRALINE HCL 98888097409 No Longer Active Jacque Blas MD PhD Active BACTRIM DS 800-160 MG TAB 1 tab by mouth twice daily TRIMETHOPRIM-SULFAMETHOXAZOLE 83276434581 No Longer Active Eva Alejo APRN Active FLINSJAMAR GUMMIELÍAS OMEGA-3 DHA CHEW Take one by mouth daily PEDIATRIC MULTIPLE VIT-C-FA 16625006510 No Longer Active Jacque Blas MD PhD Active RANITIDINE HCL 150 MG CAPS 1 twice a day RANITIDINE HCL 36611501773 No Longer Active Jacque Blas MD PhD Active PNV-OMEGA 28-0.6-0.4-340 MG CAPS 1 pill by mouth daily PRENAT W/O [id number]-OMEGA 57173112312 No Longer Active Jacque Blas MD PhD Active BACTRIM DS 800-160 MG TAB 1 tab by mouth twice daily TRIMETHOPRIM-SULFAMETHOXAZOLE 61045050251 No Longer Active Jacque Blas MD PhD Active METRONIDAZOLE 250 MG TABS 1 TID METRONIDAZOLE 33274885673 No Longer Active Jaqcue Blas MD PhD Active TRI-SPRINTEC 0.18/0.215/0.25 MG-35 MCG TABS 1 PO q Day NORGESTIM-ETH ESTRAD TRIPHASIC 47279168655 No Longer Active Jacque Blas MD PhD Active ALPRAZOLAM 0.25 MG TABS 1/2 tab to 1 tab PO TID PRN ALPRAZOLAM 67056757253 No Longer Active Jacque Blas MD PhD Active FLUOXETINE HCL 10 MG CAPS 2 PO q AM FLUOXETINE HCL 72051684931 No Longer Active Jacque Blas MD PhD Active ALPRAZOLAM 0.25 MG TABS 1/2 tab to 1 tab PO TID PRN ALPRAZOLAM 0.25 MG TABS 883434 ALPRAZOLAM Inactive TRI-SPRINTEC 0.18/0.215/0.25 MG-35 MCG TABS 1 PO q Day TRI-SPRINTEC 0.18/0.215/0.25 MG-35 MCG TABS 818446 NORGESTIM-ETH ESTRAD TRIPHASIC Inactive PNV-OMEGA 28-0.6-0.4-340 MG CAPS 1 pill by mouth daily PNV-OMEGA 28-0.6-0.4-340 MG CAPS PRENAT W/O [id number] Inactive RANITIDINE HCL 150 MG CAPS 1 twice a day RANITIDINE HCL 150 MG CAPS 519212 RANITIDINE HCL Inactive FLINSTONES GUMMIES OMEGA-3 DHA CHEW Take one by mouth daily FLINSTONES GUMMIES OMEGA-3 DHA CHEW PEDIATRIC MULTIPLE VIT-C-FA Inactive SERTRALINE HCL 50 MG TABS 1 daily for depression SERTRALINE HCL 50 MG TABS 731217 SERTRALINE HCL Inactive TYLENOL EXTRA STRENGTH 500 MG TABS 2 @ HS TYLENOL EXTRA STRENGTH 500 MG TABS 680810 ACETAMINOPHEN Inactive TRAMADOL HCL 50 MG TABS 1-2 tablets every 6 hours as needed for pain TRAMADOL HCL 50 MG TABS 120364 TRAMADOL HCL Inactive HYDROCODONE-ACETAMINOPHEN 5-325 MG TABS 1 pill three times daily as needed for pain HYDROCODONE-ACETAMINOPHEN 5-325 MG TABS 238631 HYDROCODONE-ACETAMINOPHEN Inactive CITALOPRAM HYDROBROMIDE 10 MG TABS 1 pill daily, for depression/anxiety 02/09 CITALOPRAM HYDROBROMIDE 10 MG TABS 369120 CITALOPRAM HYDROBROMIDE Inactive ROBAXIN 500 MG TAB 1-2 pills up to four times daily if needed for muscle spasms ROBAXIN 500 MG TAB 159574 METHOCARBAMOL Inactive HYDROCODONE-ACETAMINOPHEN 7.5-325 MG TABS 1 four times a day as needed for pain HYDROCODONE-ACETAMINOPHEN 7.5-325 MG TABS 991494 HYDROCODONE-ACETAMINOPHEN Inactive LAMICTAL 25 MG TABS 1 pill by mouth daily x 2 weeks, then 2 pills daily 07/26 LAMICTAL 25 MG TABS 678735 LAMOTRIGINE Inactive FLUOXETINE HCL 10 MG CAPS 2 PO q AM FLUOXETINE HCL 10 MG CAPS 956579 FLUOXETINE HCL Inactive METRONIDAZOLE 250 MG TABS 1 TID METRONIDAZOLE 250 MG TABS 782442 METRONIDAZOLE Inactive BACTRIM DS 800-160 MG TAB [...] reduced Diphtheria, and acellular Pertussis Immunization) Adacel [OMZ805] tetanus toxoid, reduced diphtheria toxoid, and acellular [...] Value Unit Range Description Lab Report: Chlamydia/GC APTIMA/32574 - Lab chlamydia DNA probe NOT DETECTED NOT DETECTED chlamydia DNA probe NOT DETECTED NOT DETECTED Lab Report: Chlamydia/GC APTIMA/55336 - Microbiology Neisseria gonorrhoeae DNA probe NOT DETECTED NOT DETECTED Neisseria gonorrhoeae DNA probe NOT DETECTED NOT DETECTED Lab Report: Chlamydia/GC APTIMA/36735, Drug Abuse Pnl 10-50/06185 - Lab chlamydia DNA probe NOT DETECTED NOT DETECTED Lab Report: Chlamydia/GC APTIMA/22540, Drug Abuse Pnl 10-50/56845 - Microbiology Neisseria gonorrhoeae DNA probe NOT [...] Negative Encounters Code Encounter Date Provider Facility CPT-74362 Level 3 Est. Patient 20:19:50 [employer]IMARY SCHOOL PRINCIPAL Jacque Blas MD PhD [facility] CPT-46142 Level 4 Est. Patient 17:32:49 [employer]IMARY SCHOOL PRINCIPAL Jacque Blas MD PhD [facility] CPT-86668 Level 3 Est. Patient 14:38:20 CDT Jacque Blas MD PhD [facility] CPT-62791 Level 4 Est. Patient 20:19:14 CDT Jacque Blas MD PhD [facility] CPT-11873 Level 3 Est. Patient 15:41:32 CDT Jacque Blas MD [facility] CPT-47117 Level 3 Est. Patient 18:02:00 [employer] S[employer] PRINCIPAL Jacque Blas MD [facility] CPT-64397 Level 3 Est. Patient 21:41:26 [employer]IMARY SCHOOL PRINCIPAL Jaqcue Blas MD [facility] CPT-13695 Level 4 Est. Patient 14:43:47 [employer]IMARY SCHOOL PRINCIPAL Jacque Blas MD [facility] CPT-84223 Level 3 Est. Patient 20:16:54 [employer]IMARY SCHOOL PRINCIPAL Jacque Blas MD [facility] CPT-37691 Level 3 Est. Patient 13:31:37 CDT Jacque Blas MD [facility] CPT-58201 Level 3 New Patient 18:16:07 CDT Jacque Blas MD [facility] Procedures Code Procedure Name Date Entry Date Standard Description CPT-80644 Immunization Single Admin 13:26:18 [employer]IMARY SCHOOL PRINCIPAL CPT-03873 Fluzone Intramuscular Injectable 13:26:18 [employer]IMARY SCHOOL PRINCIPAL CPT-81592 Fluzone Thim Free 36mo and older 12:03:33 [employer]IMARY SCHOOL PRINCIPAL CPT-53363 UHCG (floor use only) 11:49:41 [employer]IMARY SCHOOL PRINCIPAL CPT-OV Office Visit 11:49:41 [employer]IMARY SCHOOL PRINCIPAL CPT-32536 LS spine comp w obliq 15:53:02 [employer]IMARY SCHOOL PRINCIPAL CPT-13648 C-Spine Min 4V 15:53:02 [employer]IMARY SCHOOL PRINCIPAL CPT-94533 UHCG (floor use only) 14:15:45 CDT CPT-44329 UHCG (floor use only) 14:09:15 CDT CPT-J7302 Mirena IUD 13:30:58 CDT CPT-99070 Insertion of IUD 13:30:58 CDT CPT-OV Office Visit 13:30:58 CDT CPT-33630 Visit 10:48:09 CDT CPT-65129 Visit 15:34:57 CDT CPT-16409 Visit 15:25:55 CDT CPT-94121 Visit 13:58:45 CDT CPT-61415 Sono OB comp > 14 weeks 16:57:22 CDT CPT-LR Lesion Removal 09:33:27 CDT CPT-48561 Visit 12:50:42 CDT CPT-04959 Visit 18:34:25 CDT CPT-000 Give Appropriate Tetanus Booster 09:16:14 CDT CPT-20427 Administration single or combination vaccine inc oral 11 :36:32 CDT CPT-79294 Tdap 11:36:32 CDT CPT-24451 Visit 09:16:14 CDT CPT-60364 Visit 13:35:24 CDT CPT-92693 Sono OB comp > 14 weeks 11:46:07 CDT CPT-24448 Visit 17:08:15 CDT CPT-22310 Sono OB comp <14 weeks 15:47:19 [employer]IMARY SCHOOL PRINCIPAL CPT-88247 Visit 13:28:37 CDT CPT-26849 Spec Collection and Handling Fee 12:41:37 CDT CPT-89032 Visit 12:41:07 CDT CPT-01687 Visit 18:48:53 CDT CPT-96364 Visit 16:25:17 CDT CPT-74669 Sono OB comp > 14 weeks 11:38:18 CDT CPT-41845 Visit 13:36:17 CDT CPT-76440 Visit 13:48:22 CDT
--- OUTSIDE RECORDS SUMMARY | 2019-01-13 20:33 | XMS REPORT | Clinical Summary ---
Author Author Admin, MARCO ANTONIO Gardiner [facility] Address Unknown Phone Unavailable Allergies, Adverse Reactions, [...] viral diseases UTI 599.0 Active Eva Alejo [employer] Urinary tract infection, site not specified Back pain, lumbar 724.2 Active Eva Alejo [employer] Lumbago , NORMAL ICD-V22.2 Inactive Jacque Blas [...] by mouth q hs, prn CYCLOBENZAPRINE HCL 59972236813 Active Eva Alejo APRN Active MEDROL (DIAN) 4 MG TABS 6 pills x 1 day, then 5 pills x 1 day then 4 pills x 1 day, then 3 pills x 1 day, then 2 pills x 1 day, then 1 pill x 1 day, then stop [facility] 96534284274 No Longer Active Eva Alejo APRN Active SEROQUEL 200 MG ORAL TABS take 1 tab daily QUETIAPINE FUMARATE 92855651218 Active Eva Alejo APRN Active CIPRO 500 MG TAB 1 tablet by mouth twice daily CIPROFLOXACIN HCL 56943985160 Active Rajllina Sukumarl [employer]TAIN Active CYCLOBENZAPRINE HCL 10 MG TABS 1/2 - 1 tab by mouth three times daily if needed for spasms/pain CYCLOBENZAPRINE HCL 56875302269 No Longer Active Eva Alejo APRN Active NICODERM CQ 7 MG/24HR PT24 1 patch daily x 2 weeks - for smoking cessation NICOTINE 32338592284 Active Jacque Blas MD PhD Active NICODERM CQ 14 MG/24HR PT24 1 patch daily x 2 weeks, then decrease to 7's - for smoking cessation NICOTINE 98145754429 Active Jacque Blas MD PhD Active FLAGYL 500 MG ORAL TABS four tabs PO x 1 METRONIDAZOLE 32668750833 No Longer Active Jacque Blas MD PhD Active BACTRIM DS 800-160 MG ORAL TABS one tab PO BID x 3 days SULFAMETHOXAZOLE-TRIMETHOPRIM 77486911530 No Longer Active Chloe Wagner MD Active METHOCARBAMOL 500 MG ORAL TABS 1 pill by mouth up to four times daily if needed for muscle spasm/pain METHOCARBAMOL 91212625198 Active Jacque Blas MD PhD Active LAMICTAL 25 MG TABS 1 pill by mouth daily x 2 weeks, then 2 pills daily 07/26 LAMOTRIGINE 77181352246 No Longer Active Jacque Blas MD PhD Active LATUDA 40 MG TABS Take one by mouth daily LURASIDONE HCL 00484212492 Active Jacque Blas MD PhD Active HYDROCODONE-ACETAMINOPHEN 7.5-325 MG TABS 1 four times a day as needed for pain HYDROCODONE-ACETAMINOPHEN 41825433783 No Longer Active Jacque Blas MD PhD Active ROBAXIN 500 MG TAB 1-2 pills up to four times daily if needed for muscle spasms METHOCARBAMOL 89057312065 No Longer Active Jacque Blas MD PhD Active CITALOPRAM HYDROBROMIDE 10 MG TABS 1 pill daily, for depression/anxiety 02/09 CITALOPRAM HYDROBROMIDE 73627010875 No Longer Active Jacque Blas MD PhD Active HYDROCODONE-ACETAMINOPHEN 5-325 MG TABS 1 pill three times daily as needed for pain HYDROCODONE-ACETAMINOPHEN 31129173022 No Longer Active Jacque Blas MD PhD Active IBUPROFEN 600 MG TAB 1 pill four times daily, with food IBUPROFEN 04265291858 Active Jacque Blas MD PhD Active TRAMADOL HCL 50 MG TABS 1-2 tablets every 6 hours as needed for pain TRAMADOL HCL 58640444062 No Longer Active Jacque Blas MD PhD Active TYLENOL EXTRA STRENGTH 500 MG TABS 2 @ HS ACETAMINOPHEN 71734452675 No Longer Active Jacque Blsa MD PhD Active SERTRALINE HCL 50 MG TABS 1 daily for depression SERTRALINE HCL 56242054822 No Longer Active Jacque Blas MD PhD Active BACTRIM DS 800-160 MG TAB 1 tab by mouth twice daily TRIMETHOPRIM-SULFAMETHOXAZOLE 24715564517 No Longer Active Eva Alejo APRN Active FLINSTON GUMMIES OMEGA-3 DHA CHEW Take one by mouth daily PEDIATRIC MULTIPLE VIT-C-FA 06081603575 No Longer Active Jacque Blas MD PhD Active RANITIDINE HCL 150 MG CAPS 1 twice a day RANITIDINE HCL 40230484880 No Longer Active Jacque Blas MD PhD Active PNV-OMEGA 28-0.6-0.4-340 MG CAPS 1 pill by mouth daily PRENAT W/O [id number]-OMEGA 29291802838 No Longer Active Jacque Blas MD PhD Active BACTRIM DS 800-160 MG TAB 1 tab by mouth twice daily TRIMETHOPRIM-SULFAMETHOXAZOLE 18195556343 No Longer Active Jacque Blas MD PhD Active METRONIDAZOLE 250 MG TABS 1 TID METRONIDAZOLE 53537329817 No Longer Active Jacque Blas MD PhD Active TRI-SPRINTEC 0.18/0.215/0.25 MG-35 MCG TABS 1 PO q Day NORGESTIM-ETH ESTRAD TRIPHASIC 73929075757 No Longer Active Jacque Blas MD PhD Active ALPRAZOLAM 0.25 MG TABS 1/2 tab to 1 tab PO TID PRN ALPRAZOLAM 74718567450 No Longer Active Jacque Blas MD PhD Active FLUOXETINE HCL 10 MG CAPS 2 PO q AM FLUOXETINE HCL 20863035408 No Longer Active Jacque Blas MD PhD Active ALPRAZOLAM 0.25 MG TABS 1/2 tab to 1 tab PO TID PRN ALPRAZOLAM 0.25 MG TABS 497815 ALPRAZOLAM Inactive TRI-SPRINTEC 0.18/0.215/0.25 MG-35 MCG TABS 1 PO q Day TRI-SPRINTEC 0.18/0.215/0.25 MG-35 MCG TABS 816161 NORGESTIM-ETH ESTRAD TRIPHASIC Inactive PNV-OMEGA 28-0.6-0.4-340 MG CAPS 1 pill by mouth daily PNV-OMEGA 28-0.6-0.4-340 MG CAPS PRENAT W/O Q-[id number]-OMEGA Inactive RANITIDINE HCL 150 MG CAPS 1 twice a day RANITIDINE HCL 150 MG CAPS 678892 RANITIDINE HCL Inactive FLINSTONES GUMMIES OMEGA-3 DHA CHEW Take one by mouth daily FLINSTONES GUMMIES OMEGA-3 DHA CHEW PEDIATRIC MULTIPLE VIT-C-FA Inactive SERTRALINE HCL 50 MG TABS 1 daily for depression SERTRALINE HCL 50 MG TABS 991751 SERTRALINE HCL Inactive TYLENOL EXTRA STRENGTH 500 MG TABS 2 @ HS TYLENOL EXTRA STRENGTH 500 MG TABS 676771 ACETAMINOPHEN Inactive TRAMADOL HCL 50 MG TABS 1-2 tablets every 6 hours as needed for pain TRAMADOL HCL 50 MG TABS 611121 TRAMADOL HCL Inactive HYDROCODONE-ACETAMINOPHEN 5-325 MG TABS 1 pill three times daily as needed for pain HYDROCODONE-ACETAMINOPHEN 5-325 MG TABS 460356 HYDROCODONE-ACETAMINOPHEN Inactive CITALOPRAM HYDROBROMIDE 10 MG TABS 1 pill daily, for depression/anxiety 02/09 CITALOPRAM HYDROBROMIDE 10 MG TABS 592227 CITALOPRAM HYDROBROMIDE Inactive ROBAXIN 500 MG TAB 1-2 pills up to four times daily if needed for muscle spasms ROBAXIN 500 MG TAB 307709 METHOCARBAMOL Inactive HYDROCODONE-ACETAMINOPHEN 7.5-325 MG TABS 1 four times a day as needed for pain HYDROCODONE-ACETAMINOPHEN 7.5-325 MG TABS 547336 HYDROCODONE-ACETAMINOPHEN Inactive LAMICTAL 25 MG TABS 1 pill by mouth daily x 2 weeks, then 2 pills daily 07/26 LAMICTAL 25 MG TABS 942124 LAMOTRIGINE Inactive FLAGYL 500 MG ORAL TABS four tabs PO x 1 FLAGYL 500 MG ORAL TABS 847657 METRONIDAZOLE Inactive CYCLOBENZAPRINE HCL 10 MG TABS 1/2 - 1 tab by mouth three times daily if needed for spasms/pain CYCLOBENZAPRINE HCL 10 MG TABS 466900 CYCLOBENZAPRINE HCL Inactive FLUOXETINE HCL 10 MG CAPS 2 PO q AM FLUOXETINE HCL 10 MG CAPS 783585 FLUOXETINE HCL Inactive METRONIDAZOLE 250 MG TABS 1 TID METRONIDAZOLE 250 MG TABS 867947 METRONIDAZOLE Inactive BACTRIM DS 800-160 MG TAB [...] reduced Diphtheria, and acellular Pertussis Immunization) Adacel [OEC193] tetanus toxoid, reduced diphtheria toxoid, and acellular [...] Value Unit Range Description Lab Report: Chlamydia/GC APTIMA/85856 - Lab chlamydia DNA probe NOT DETECTED NOT DETECTED chlamydia DNA probe NOT DETECTED NOT DETECTED chlamydia DNA probe NOT DETECTED NOT DETECTED chlamydia DNA probe NOT DETECTED NOT DETECTED Lab Report: Chlamydia/GC APTIMA/34366 - Microbiology Neisseria gonorrhoeae DNA probe NOT DETECTED NOT DETECTED Neisseria gonorrhoeae DNA probe NOT DETECTED NOT DETECTED Neisseria gonorrhoeae DNA probe NOT DETECTED NOT DETECTED Neisseria gonorrhoeae DNA probe NOT DETECTED NOT DETECTED Lab Report: Chlamydia/GC APTIMA/68409, Drug Abuse Pnl 10-50/63122 - Lab chlamydia DNA probe NOT DETECTED NOT DETECTED Lab Report: Chlamydia/GC APTIMA/04769, Drug Abuse Pnl 10-50/16293 - Microbiology Neisseria gonorrhoeae DNA probe NOT [...] Negative Encounters Code Encounter Date Provider Facility CPT-11749 Level 3 Est. Patient 20:19:50 [employer]IAL MEDIA DEVELOPER Jacque Blas MD PhD [facility] CPT-00961 Level 4 Est. Patient 17:32:49 [employer] MEDIA DEVELOPER Jacque Blas MD PhD [facility] CPT-08764 Level 3 Est. Patient 14:38:20 CDT Jacque Blas MD PhD [facility] CPT-65842 Level 4 Est. Patient 20:19:14 CDT Jacque Blas MD [facility] CPT-14677 Level 3 Est. Patient 15:41:32 CDT Jacque Blas MD [facility] CPT-62781 Level 3 Est. Patient 18:02:00 [employer] DEVELOPER Jacque Blas MD [facility] CPT-58734 Level 3 Est. Patient 21:41:26 [employer] DEVELOPER Jacque Blas MD [facility] CPT-60654 Level 4 Est. Patient 14:43:47 [employer] MEDIA DEVELOPER Jacque Blas MD [facility] CPT-10973 Level 3 Est. Patient 20:16:54 [employer] DEVELOPER Jacque Blas MD [facility] CPT-55820 Level 3 Est. Patient 13:31:37 CDT Jacque Blas MD [facility] CPT-42724 Level 3 New Patient 18:16:07 CDT Jacque Blas MD [facility] Procedures Code Procedure Name Date Entry Date Standard Description CPT-77825 Fluzone Quadrivalent Intramuscular Suspension 0.5 ML 16: 31:47 [employer] DEVELOPER CPT-88476 Immunization Single Admin 16:31:47 [employer] DEVELOPER CPT-81738 Immunization Single Admin 13:26:18 [employer]IAL MEDIA DEVELOPER CPT-04669 Fluzone Intramuscular Injectable 13:26:18 [employer]IAL MEDIA DEVELOPER CPT-95955 Fluzone Thim Free 36mo and older 12:03:33 [employer]IA DEVELOPER CPT-00262 UHCG (floor use only) 11:49:41 [employer] MEDIA DEVELOPER CPT-OV Office Visit 11:49:41 [employer]IAL MEDIA DEVELOPER CPT-52326 LS spine comp w obliq 15:53:02 SOCIAL MEDIA DEVELOPER CPT-67112 C-Spine Min 4V 15:53:02 SOCIAL MEDIA DEVELOPER CPT-13588 UHCG (floor use only) 14:15:45 CDT CPT-11226 UHCG (floor use only) 14:09:15 CDT CPT-J7302 Mirena IUD 13:30:58 CDT CPT-05699 Insertion of IUD 13:30:58 CDT CPT-OV Office Visit 13:30:58 CDT CPT-11261 Visit 10:48:09 CDT CPT-52758 Visit 15:34:57 CDT CPT-51479 Visit 15:25:55 CDT CPT-09006 Visit 13:58:45 CDT CPT-96093 Sono OB comp > 14 weeks 16:57:22 CDT CPT-LR Lesion Removal 09:33:27 CDT CPT-80193 Visit 12:50:42 CDT CPT-59037 Visit 18:34:25 CDT CPT-000 Give Appropriate Tetanus Booster 09:16:14 CDT CPT-83707 Administration single or combination vaccine inc oral 11 :36:32 CDT CPT-24686 Tdap 11:36:32 CDT CPT-25759 Visit 09:16:14 CDT CPT-29843 Visit 13:35:24 CDT CPT-56595 Sono OB comp > 14 weeks 11:46:07 CDT CPT-15737 Visit 17:08:15 CDT CPT-31480 Sono OB comp <14 weeks 15:47:19 [employer]IA DEVELOPER CPT-44113 Visit 13:28:37 CDT CPT-25336 Spec Collection and Handling Fee 12:41:37 CDT CPT-66682 Visit 12:41:07 CDT CPT-41387 Visit 18:48:53 CDT CPT-33308 Visit 16:25:17 CDT CPT-77734 Sono OB comp > 14 weeks 11:38:18 CDT CPT-67416 Visit 13:36:17 CDT CPT-83440 Visit 13:48:22 CDT
--- OUTSIDE RECORDS SUMMARY | 2019-01-13 20:34 | XMS REPORT | Clinical Summary ---
[...] viral diseases UTI 599.0 Active Eva Alejo HAND SLITTER Urinary tract infection, site not specified Back pain, lumbar 724.2 Active Eva Alejo HAND SLITTER Lumbago , NORMAL ICD-V22.2 Inactive Jacque Blas [...] by mouth q hs, prn CYCLOBENZAPRINE HCL 86741716928 Active Eva Alejo APRN Active MEDROL (DIAN) 4 MG TABS 6 pills x 1 day, then 5 pills x 1 day then 4 pills x 1 day, then 3 pills x 1 day, then 2 pills x 1 day, then 1 pill x 1 day, then stop [facility] 52986880684 No Longer Active Eva Alejo APRN Active SEROQUEL 200 MG ORAL TABS take 1 tab daily QUETIAPINE FUMARATE 41698457231 Active Eva Alejo APRN Active CIPRO 500 MG TAB 1 tablet by mouth twice daily CIPROFLOXACIN HCL 39683549949 Active Rajllina Sukumarl HAND SLITTER Active CYCLOBENZAPRINE HCL 10 MG TABS 1/2 - 1 tab by mouth three times daily if needed for spasms/pain CYCLOBENZAPRINE HCL 81507325401 No Longer Active Eva Alejo APRN Active NICODERM CQ 7 MG/24HR PT24 1 patch daily x 2 weeks - for smoking cessation NICOTINE 94163200516 Active Jacque Blas MD PhD Active NICODERM CQ 14 MG/24HR PT24 1 patch daily x 2 weeks, then decrease to 7's - for smoking cessation NICOTINE 21788252059 Active Jacque Blas MD PhD Active FLAGYL 500 MG ORAL TABS four tabs PO x 1 METRONIDAZOLE 57492384531 No Longer Active Jacque Blas MD PhD Active BACTRIM DS 800-160 MG ORAL TABS one tab PO BID x 3 days SULFAMETHOXAZOLE-TRIMETHOPRIM 18051013099 No Longer Active Chloe Wagner MD Active METHOCARBAMOL 500 MG ORAL TABS 1 pill by mouth up to four times daily if needed for muscle spasm/pain METHOCARBAMOL 73432104854 Active Jacque Blas MD PhD Active LAMICTAL 25 MG TABS 1 pill by mouth daily x 2 weeks, then 2 pills daily 07/26 LAMOTRIGINE 66044780361 No Longer Active Jacque Blas MD PhD Active LATUDA 40 MG TABS Take one by mouth daily LURASIDONE HCL 45192962237 Active Jacque Blas MD PhD Active HYDROCODONE-ACETAMINOPHEN 7.5-325 MG TABS 1 four times a day as needed for pain HYDROCODONE-ACETAMINOPHEN 41149517790 No Longer Active Jacque Blas MD PhD Active ROBAXIN 500 MG TAB 1-2 pills up to four times daily if needed for muscle spasms METHOCARBAMOL 26240018142 No Longer Active Jacque Blas MD PhD Active CITALOPRAM HYDROBROMIDE 10 MG TABS 1 pill daily, for depression/anxiety 02/09 CITALOPRAM HYDROBROMIDE 43706609458 No Longer Active Jacque Blas MD PhD Active HYDROCODONE-ACETAMINOPHEN 5-325 MG TABS 1 pill three times daily as needed for pain HYDROCODONE-ACETAMINOPHEN 71222707728 No Longer Active Jacque Blas MD PhD Active IBUPROFEN 600 MG TAB 1 pill four times daily, with food IBUPROFEN 67704980716 Active Jacque Blas MD PhD Active TRAMADOL HCL 50 MG TABS 1-2 tablets every 6 hours as needed for pain TRAMADOL HCL 75958342970 No Longer Active Jacque Blas MD PhD Active TYLENOL EXTRA STRENGTH 500 MG TABS 2 @ HS ACETAMINOPHEN 36871624242 No Longer Active Jacque Blas MD PhD Active SERTRALINE HCL 50 MG TABS 1 daily for depression SERTRALINE HCL 86554757850 No Longer Active Jacque Blas MD PhD Active BACTRIM DS 800-160 MG TAB 1 tab by mouth twice daily TRIMETHOPRIM-SULFAMETHOXAZOLE 25041396344 No Longer Active Eva Alejo APRN Active FLINSTON GUMMIES OMEGA-3 DHA CHEW Take one by mouth daily PEDIATRIC MULTIPLE VIT-C-FA 01581424663 No Longer Active Jacque Blas MD PhD Active RANITIDINE HCL 150 MG CAPS 1 twice a day RANITIDINE HCL 93920985475 No Longer Active Jacque Blas MD PhD Active PNV-OMEGA 28-0.6-0.4-340 MG CAPS 1 pill by mouth daily PRENAT W/O [id number]-OMEGA 43397277848 No Longer Active Jacque Blas MD PhD Active BACTRIM DS 800-160 MG TAB 1 tab by mouth twice daily TRIMETHOPRIM-SULFAMETHOXAZOLE 43321459826 No Longer Active Jacque Blas MD PhD Active METRONIDAZOLE 250 MG TABS 1 TID METRONIDAZOLE 43197688252 No Longer Active Jacque Blas MD PhD Active TRI-SPRINTEC 0.18/0.215/0.25 MG-35 MCG TABS 1 PO q Day NORGESTIM-ETH ESTRAD TRIPHASIC 41022637393 No Longer Active Jacque Blas MD PhD Active ALPRAZOLAM 0.25 MG TABS 1/2 tab to 1 tab PO TID PRN ALPRAZOLAM 47594967061 No Longer Active Jacque Blas MD PhD Active FLUOXETINE HCL 10 MG CAPS 2 PO q AM FLUOXETINE HCL 35851843852 No Longer Active Jacque Blas MD PhD Active ALPRAZOLAM 0.25 MG TABS 1/2 tab to 1 tab PO TID PRN ALPRAZOLAM 0.25 MG TABS 780070 ALPRAZOLAM Inactive TRI-SPRINTEC 0.18/0.215/0.25 MG-35 MCG TABS 1 PO q Day TRI-SPRINTEC 0.18/0.215/0.25 MG-35 MCG TABS 974163 NORGESTIM-ETH ESTRAD TRIPHASIC Inactive PNV-OMEGA 28-0.6-0.4-340 MG CAPS 1 pill by mouth daily PNV-OMEGA 28-0.6-0.4-340 MG CAPS PRENAT W/O [id number]-OMEGA Inactive RANITIDINE HCL 150 MG CAPS 1 twice a day RANITIDINE HCL 150 MG CAPS 990276 RANITIDINE HCL Inactive FLINSTONES GUMMIES OMEGA-3 DHA CHEW Take one by mouth daily FLINSTONES GUMMIES OMEGA-3 DHA CHEW PEDIATRIC MULTIPLE VIT-C-FA Inactive SERTRALINE HCL 50 MG TABS 1 daily for depression SERTRALINE HCL 50 MG TABS 467921 SERTRALINE HCL Inactive TYLENOL EXTRA STRENGTH 500 MG TABS 2 @ HS TYLENOL EXTRA STRENGTH 500 MG TABS 540490 ACETAMINOPHEN Inactive TRAMADOL HCL 50 MG TABS 1-2 tablets every 6 hours as needed for pain TRAMADOL HCL 50 MG TABS 634723 TRAMADOL HCL Inactive HYDROCODONE-ACETAMINOPHEN 5-325 MG TABS 1 pill three times daily as needed for pain HYDROCODONE-ACETAMINOPHEN 5-325 MG TABS 106934 HYDROCODONE-ACETAMINOPHEN Inactive CITALOPRAM HYDROBROMIDE 10 MG TABS 1 pill daily, for depression/anxiety 02/09 CITALOPRAM HYDROBROMIDE 10 MG TABS 173940 CITALOPRAM HYDROBROMIDE Inactive ROBAXIN 500 MG TAB 1-2 pills up to four times daily if needed for muscle spasms ROBAXIN 500 MG TAB 862987 METHOCARBAMOL Inactive HYDROCODONE-ACETAMINOPHEN 7.5-325 MG TABS 1 four times a day as needed for pain HYDROCODONE-ACETAMINOPHEN 7.5-325 MG TABS 031812 HYDROCODONE-ACETAMINOPHEN Inactive LAMICTAL 25 MG TABS 1 pill by mouth daily x 2 weeks, then 2 pills daily 07/26 LAMICTAL 25 MG TABS 606713 LAMOTRIGINE Inactive FLAGYL 500 MG ORAL TABS four tabs PO x 1 FLAGYL 500 MG ORAL TABS 126305 METRONIDAZOLE Inactive CYCLOBENZAPRINE HCL 10 MG TABS 1/2 - 1 tab by mouth three times daily if needed for spasms/pain CYCLOBENZAPRINE HCL 10 MG TABS 529425 CYCLOBENZAPRINE HCL Inactive FLUOXETINE HCL 10 MG CAPS 2 PO q AM FLUOXETINE HCL 10 MG CAPS 019215 FLUOXETINE HCL Inactive METRONIDAZOLE 250 MG TABS 1 TID METRONIDAZOLE 250 MG TABS 549268 METRONIDAZOLE Inactive BACTRIM DS 800-160 MG TAB [...] reduced Diphtheria, and acellular Pertussis Immunization) Adacel [[id number]] tetanus toxoid, reduced diphtheria toxoid, and acellular [...] Value Unit Range Description Lab Report: Chlamydia/GC APTIMA/89572 - Lab chlamydia DNA probe NOT DETECTED NOT DETECTED chlamydia DNA probe NOT DETECTED NOT DETECTED chlamydia DNA probe NOT DETECTED NOT DETECTED chlamydia DNA probe NOT DETECTED NOT DETECTED Lab Report: Chlamydia/GC APTIMA/17822 - Microbiology Neisseria gonorrhoeae DNA probe NOT DETECTED NOT DETECTED Neisseria gonorrhoeae DNA probe NOT DETECTED NOT DETECTED Neisseria gonorrhoeae DNA probe NOT DETECTED NOT DETECTED Neisseria gonorrhoeae DNA probe NOT DETECTED NOT DETECTED Lab Report: Chlamydia/GC APTIMA/71907, Drug Abuse Pnl 10-50/66876 - Lab chlamydia DNA probe NOT DETECTED NOT DETECTED Lab Report: Chlamydia/GC APTIMA/09280, Drug Abuse Pnl 10-50/59688 - Microbiology Neisseria gonorrhoeae DNA probe NOT [...] Negative Encounters Code Encounter Date Provider Facility CPT-21700 Level 3 Est. Patient 20:19:50 DEPENDENCY COUNSELOR Jacque Blas MD PhD [facility] CPT-87630 Level 4 Est. Patient 17:32:49 DEPENDENCY COUNSELOR Jacque Blas MD PhD [facility] CPT-01556 Level 3 Est. Patient 14:38:20 CDT Jacque Blas MD PhD [facility] CPT-36118 Level 4 Est. Patient 20:19:14 CDT Jacque Blas MD [facility] CPT-56144 Level 3 Est. Patient 15:41:32 CDT Jacque Blas MD [facility] CPT-69700 Level 3 Est. Patient 18:02:00 DEPENDENCY COUNSELOR Jacque Blas MD [facility] CPT-18942 Level 3 Est. Patient 21:41:26 DEPENDENCY COUNSELOR Jacque Blas MD [facility] CPT-56058 Level 4 Est. Patient 14:43:47 DEPENDENCY COUNSELOR Jacque Blas MD [facility] CPT-72271 Level 3 Est. Patient 20:16:54 DEPENDENCY COUNSELOR Jacque Blas MD [facility] CPT-59600 Level 3 Est. Patient 13:31:37 CDT Jacque Blas MD [facility] CPT-51571 Level 3 New Patient 18:16:07 CDT Jacque Blas MD [facility] Procedures Code Procedure Name Date Entry Date Standard Description CPT-65147 Fluzone Quadrivalent Intramuscular Suspension 0.5 ML 16: 31:47 DEPENDENCY COUNSELOR CPT-76297 Immunization Single Admin 16:31:47 DEPENDENCY COUNSELOR CPT-48902 Immunization Single Admin 13:26:18 DEPENDENCY COUNSELOR CPT-95525 Fluzone Intramuscular Injectable 13:26:18 DEPENDENCY COUNSELOR CPT-74183 Fluzone Thim Free 36mo and older 12:03:33 DEPENDENCY COUNSELOR CPT-19610 UHCG (floor use only) 11:49:41 DEPENDENCY COUNSELOR CPT-OV Office Visit 11:49:41 DEPENDENCY COUNSELOR CPT-95247 LS spine comp w obliq 15:53:02 DEPENDENCY COUNSELOR CPT-86663 C-Spine Min 4V 15:53:02 DEPENDENCY COUNSELOR CPT-20984 UHCG (floor use only) 14:15:45 CDT CPT-90877 UHCG (floor use only) 14:09:15 CDT CPT-J7302 Mirena IUD 13:30:58 CDT CPT-18036 Insertion of IUD 13:30:58 CDT CPT-OV Office Visit 13:30:58 CDT CPT-37523 Visit 10:48:09 CDT CPT-65617 Visit 15:34:57 CDT CPT-60710 Visit 15:25:55 CDT CPT-60312 Visit 13:58:45 CDT CPT-73348 Sono OB comp > 14 weeks 16:57:22 CDT CPT-LR Lesion Removal 09:33:27 CDT CPT-27597 Visit 12:50:42 CDT CPT-32408 Visit 18:34:25 CDT CPT-000 Give Appropriate Tetanus Booster 09:16:14 CDT CPT-68150 Administration single or combination vaccine inc oral 11 :36:32 CDT CPT-21842 Tdap 11:36:32 CDT CPT-25617 Visit 09:16:14 CDT CPT-02247 Visit 13:35:24 CDT CPT-99989 Sono OB comp > 14 weeks 11:46:07 CDT CPT-84897 Visit 17:08:15 CDT CPT-06543 Sono OB comp <14 weeks 15:47:19 DEPENDENCY COUNSELOR CPT-32895 Visit 13:28:37 CDT CPT-83824 Spec Collection and Handling Fee 12:41:37 CDT CPT-22803 Visit 12:41:07 CDT CPT-18715 Visit 18:48:53 CDT CPT-76915 Visit 16:25:17 CDT CPT-78575 Sono OB comp > 14 weeks 11:38:18 CDT CPT-97281 Visit 13:36:17 CDT CPT-65965 Visit 13:48:22 CDT
--- OUTSIDE RECORDS SUMMARY | 2019-01-13 20:34 | XMS REPORT | Clinical Summary ---
Author Author Admin, MARCO ANTONIO Gardiner [facility] Address Unknown Phone Unavailable Allergies, Adverse Reactions, [...] viral diseases UTI 599.0 Active Eva Alejo WAIT STAFF Urinary tract infection, site not specified Back pain, lumbar 724.2 Active Eva Alejo WAIT STAFF Lumbago , NORMAL ICD-V22.2 Inactive Jacque Blas [...] by mouth q hs, prn CYCLOBENZAPRINE HCL 31250911631 Active Eva Alejo APRN Active MEDROL (DIAN) 4 MG TABS 6 pills x 1 day, then 5 pills x 1 day then 4 pills x 1 day, then 3 pills x 1 day, then 2 pills x 1 day, then 1 pill x 1 day, then stop [facility] 81246725674 No Longer Active Eva Alejo APRN Active SEROQUEL 200 MG ORAL TABS take 1 tab daily QUETIAPINE FUMARATE 57565402656 Active Eva Alejo APRN Active CIPRO 500 MG TAB 1 tablet by mouth twice daily CIPROFLOXACIN HCL 52899181569 Active Rajllina Sukumarl WAIT STAFF Active CYCLOBENZAPRINE HCL 10 MG TABS 1/2 - 1 tab by mouth three times daily if needed for spasms/pain CYCLOBENZAPRINE HCL 86318406100 No Longer Active Eva Alejo APRN Active NICODERM CQ 7 MG/24HR PT24 1 patch daily x 2 weeks - for smoking cessation NICOTINE 93067711040 Active Jacque Blas MD PhD Active NICODERM CQ 14 MG/24HR PT24 1 patch daily x 2 weeks, then decrease to 7's - for smoking cessation NICOTINE 21331029042 Active Jacque Blas MD PhD Active FLAGYL 500 MG ORAL TABS four tabs PO x 1 METRONIDAZOLE 18509610453 No Longer Active Jacque Blas MD PhD Active BACTRIM DS 800-160 MG ORAL TABS one tab PO BID x 3 days SULFAMETHOXAZOLE-TRIMETHOPRIM 81004546107 No Longer Active Chloe Wagner MD Active METHOCARBAMOL 500 MG ORAL TABS 1 pill by mouth up to four times daily if needed for muscle spasm/pain METHOCARBAMOL 09748942493 Active Jacque Blas MD PhD Active LAMICTAL 25 MG TABS 1 pill by mouth daily x 2 weeks, then 2 pills daily 07/26 LAMOTRIGINE 85935423595 No Longer Active Jacque Blas MD PhD Active LATUDA 40 MG TABS Take one by mouth daily LURASIDONE HCL 88361909410 Active Jacque Blas MD PhD Active HYDROCODONE-ACETAMINOPHEN 7.5-325 MG TABS 1 four times a day as needed for pain HYDROCODONE-ACETAMINOPHEN 08691913250 No Longer Active Jacque Blas MD PhD Active ROBAXIN 500 MG TAB 1-2 pills up to four times daily if needed for muscle spasms METHOCARBAMOL 97750535557 No Longer Active Jacque Blas MD PhD Active CITALOPRAM HYDROBROMIDE 10 MG TABS 1 pill daily, for depression/anxiety 02/09 CITALOPRAM HYDROBROMIDE 61508217644 No Longer Active Jacque Blas MD PhD Active HYDROCODONE-ACETAMINOPHEN 5-325 MG TABS 1 pill three times daily as needed for pain HYDROCODONE-ACETAMINOPHEN 67935800238 No Longer Active Jacque Blas MD PhD Active IBUPROFEN 600 MG TAB 1 pill four times daily, with food IBUPROFEN 09693742004 Active Jacque Blas MD PhD Active TRAMADOL HCL 50 MG TABS 1-2 tablets every 6 hours as needed for pain TRAMADOL HCL 89626940219 No Longer Active Jacque Blas MD PhD Active TYLENOL EXTRA STRENGTH 500 MG TABS 2 @ HS ACETAMINOPHEN 44013092149 No Longer Active Jacque Blas MD PhD Active SERTRALINE HCL 50 MG TABS 1 daily for depression SERTRALINE HCL 81584072177 No Longer Active Jacque Blas MD PhD Active BACTRIM DS 800-160 MG TAB 1 tab by mouth twice daily TRIMETHOPRIM-SULFAMETHOXAZOLE 86103869905 No Longer Active Eva Alejo APRN Active FLINSTON GUMMIES OMEGA-3 DHA CHEW Take one by mouth daily PEDIATRIC MULTIPLE VIT-C-FA 25708974765 No Longer Active Jacque Blas MD PhD Active RANITIDINE HCL 150 MG CAPS 1 twice a day RANITIDINE HCL 04963303566 No Longer Active Jacque Blas MD PhD Active PNV-OMEGA 28-0.6-0.4-340 MG CAPS 1 pill by mouth daily PRENAT W/O Y-VH-SXBAO-FA-OMEGA 47913537232 No Longer Active Jacque Blas MD PhD Active BACTRIM DS 800-160 MG TAB 1 tab by mouth twice daily TRIMETHOPRIM-SULFAMETHOXAZOLE 04016734601 No Longer Active Jacque Blas MD PhD Active METRONIDAZOLE 250 MG TABS 1 TID METRONIDAZOLE 36199618137 No Longer Active Jacque Blas MD PhD Active TRI-SPRINTEC 0.18/0.215/0.25 MG-35 MCG TABS 1 PO q Day NORGESTIM-ETH ESTRAD TRIPHASIC 32953816444 No Longer Active Jacque Blas MD PhD Active ALPRAZOLAM 0.25 MG TABS 1/2 tab to 1 tab PO TID PRN ALPRAZOLAM 69109495151 No Longer Active Jacque Blas MD PhD Active FLUOXETINE HCL 10 MG CAPS 2 PO q AM FLUOXETINE HCL 75854300790 No Longer Active Jacque Blas MD PhD Active ALPRAZOLAM 0.25 MG TABS 1/2 tab to 1 tab PO TID PRN ALPRAZOLAM 0.25 MG TABS 401354 ALPRAZOLAM Inactive TRI-SPRINTEC 0.18/0.215/0.25 MG-35 MCG TABS 1 PO q Day TRI-SPRINTEC 0.18/0.215/0.25 MG-35 MCG TABS 179717 NORGESTIM-ETH ESTRAD TRIPHASIC Inactive PNV-OMEGA 28-0.6-0.4-340 MG CAPS 1 pill by mouth daily PNV-OMEGA 28-0.6-0.4-340 MG CAPS PRENAT W/O [id number]-FA-OMEGA Inactive RANITIDINE HCL 150 MG CAPS 1 twice a day RANITIDINE HCL 150 MG CAPS 818207 RANITIDINE HCL Inactive FLINSTONES GUMMIES OMEGA-3 DHA CHEW Take one by mouth daily FLINSTONES GUMMIES OMEGA-3 DHA CHEW PEDIATRIC MULTIPLE VIT-C-FA Inactive SERTRALINE HCL 50 MG TABS 1 daily for depression SERTRALINE HCL 50 MG TABS 894446 SERTRALINE HCL Inactive TYLENOL EXTRA STRENGTH 500 MG TABS 2 @ HS TYLENOL EXTRA STRENGTH 500 MG TABS 711336 ACETAMINOPHEN Inactive TRAMADOL HCL 50 MG TABS 1-2 tablets every 6 hours as needed for pain TRAMADOL HCL 50 MG TABS 220958 TRAMADOL HCL Inactive HYDROCODONE-ACETAMINOPHEN 5-325 MG TABS 1 pill three times daily as needed for pain HYDROCODONE-ACETAMINOPHEN 5-325 MG TABS 984566 HYDROCODONE-ACETAMINOPHEN Inactive CITALOPRAM HYDROBROMIDE 10 MG TABS 1 pill daily, for depression/anxiety 02/09 CITALOPRAM HYDROBROMIDE 10 MG TABS 332003 CITALOPRAM HYDROBROMIDE Inactive ROBAXIN 500 MG TAB 1-2 pills up to four times daily if needed for muscle spasms ROBAXIN 500 MG TAB 279657 METHOCARBAMOL Inactive HYDROCODONE-ACETAMINOPHEN 7.5-325 MG TABS 1 four times a day as needed for pain HYDROCODONE-ACETAMINOPHEN 7.5-325 MG TABS 816279 HYDROCODONE-ACETAMINOPHEN Inactive LAMICTAL 25 MG TABS 1 pill by mouth daily x 2 weeks, then 2 pills daily 07/26 LAMICTAL 25 MG TABS 885843 LAMOTRIGINE Inactive FLAGYL 500 MG ORAL TABS four tabs PO x 1 FLAGYL 500 MG ORAL TABS 426297 METRONIDAZOLE Inactive CYCLOBENZAPRINE HCL 10 MG TABS 1/2 - 1 tab by mouth three times daily if needed for spasms/pain CYCLOBENZAPRINE HCL 10 MG TABS 782769 CYCLOBENZAPRINE HCL Inactive FLUOXETINE HCL 10 MG CAPS 2 PO q AM FLUOXETINE HCL 10 MG CAPS 457854 FLUOXETINE HCL Inactive METRONIDAZOLE 250 MG TABS 1 TID METRONIDAZOLE 250 MG TABS 298215 METRONIDAZOLE Inactive BACTRIM DS 800-160 MG TAB [...] reduced Diphtheria, and acellular Pertussis Immunization) Adacel [[id number]] tetanus toxoid, reduced diphtheria toxoid, and acellular [...] Value Unit Range Description Lab Report: Chlamydia/GC APTIMA/83927 - Lab chlamydia DNA probe NOT DETECTED NOT DETECTED chlamydia DNA probe NOT DETECTED NOT DETECTED chlamydia DNA probe NOT DETECTED NOT DETECTED chlamydia DNA probe NOT DETECTED NOT DETECTED Lab Report: Chlamydia/GC APTIMA/32058 - Microbiology Neisseria gonorrhoeae DNA probe NOT DETECTED NOT DETECTED Neisseria gonorrhoeae DNA probe NOT DETECTED NOT DETECTED Neisseria gonorrhoeae DNA probe NOT DETECTED NOT DETECTED Neisseria gonorrhoeae DNA probe NOT DETECTED NOT DETECTED Lab Report: Chlamydia/GC APTIMA/90908, Drug Abuse Pnl 10-50/64729 - Lab chlamydia DNA probe NOT DETECTED NOT DETECTED Lab Report: Chlamydia/GC APTIMA/05613, Drug Abuse Pnl 10-50/87582 - Microbiology Neisseria gonorrhoeae DNA probe NOT [...] Negative Encounters Code Encounter Date Provider Facility CPT-37666 Level 3 Est. Patient 20:19:50 DNA ANALYST Jacque Blas MD PhD [facility] CPT-66764 Level 4 Est. Patient 17:32:49 DNA ANALYST Jacque Blas MD PhD [facility] CPT-93674 Level 3 Est. Patient 14:38:20 CDT Jacque Blas MD PhD [facility] CPT-21210 Level 4 Est. Patient 20:19:14 CDT Jacque Blas MD [facility] CPT-88785 Level 3 Est. Patient 15:41:32 CDT Jacque Blas MD [facility] CPT-14979 Level 3 Est. Patient 18:02:00 DNA ANALYST Jacque Blas MD [facility] CPT-22367 Level 3 Est. Patient 21:41:26 DNA ANALYST Jacque Blas MD [facility] CPT-17230 Level 4 Est. Patient 14:43:47 DNA ANALYST Jacque Blas MD [facility] CPT-01276 Level 3 Est. Patient 20:16:54 DNA ANALYST Jacque Blas MD [facility] CPT-78900 Level 3 Est. Patient 13:31:37 CDT Jacque Blas MD [facility] CPT-82754 Level 3 New Patient 18:16:07 CDT Jacque Blas MD [facility] Procedures Code Procedure Name Date Entry Date Standard Description CPT-66068 Fluzone Quadrivalent Intramuscular Suspension 0.5 ML 16: 31:47 DNA ANALYST CPT-36958 Immunization Single Admin 16:31:47 DNA ANALYST CPT-46480 Immunization Single Admin 13:26:18 DNA ANALYST CPT-29839 Fluzone Intramuscular Injectable 13:26:18 DNA ANALYST CPT-91306 Fluzone Thim Free 36mo and older 12:03:33 DNA ANALYST CPT-11584 UHCG (floor use only) 11:49:41 DNA ANALYST CPT-OV Office Visit 11:49:41 DNA ANALYST CPT-35002 LS spine comp w obliq 15:53:02 DNA ANALYST CPT-78901 C-Spine Min 4V 15:53:02 DNA ANALYST CPT-01032 UHCG (floor use only) 14:15:45 CDT CPT-38837 UHCG (floor use only) 14:09:15 CDT CPT-J7302 Mirena IUD 13:30:58 CDT CPT-30366 Insertion of IUD 13:30:58 CDT CPT-OV Office Visit 13:30:58 CDT CPT-55709 Visit 10:48:09 CDT CPT-38936 Visit 15:34:57 CDT CPT-35053 Visit 15:25:55 CDT CPT-12852 Visit 13:58:45 CDT CPT-42805 Sono OB comp > 14 weeks 16:57:22 CDT CPT-LR Lesion Removal 09:33:27 CDT CPT-04081 Visit 12:50:42 CDT CPT-48890 Visit 18:34:25 CDT CPT-000 Give Appropriate Tetanus Booster 09:16:14 CDT CPT-57006 Administration single or combination vaccine inc oral 11 :36:32 CDT CPT-54638 Tdap 11:36:32 CDT CPT-91517 Visit 09:16:14 CDT CPT-80104 Visit 13:35:24 CDT CPT-40886 Sono OB comp > 14 weeks 11:46:07 CDT CPT-63167 Visit 17:08:15 CDT CPT-21187 Sono OB comp <14 weeks 15:47:19 DNA ANALYST CPT-90800 Visit 13:28:37 CDT CPT-52590 Spec Collection and Handling Fee 12:41:37 CDT CPT-43549 Visit 12:41:07 CDT CPT-29954 Visit 18:48:53 CDT CPT-15766 Visit 16:25:17 CDT CPT-36116 Sono OB comp > 14 weeks 11:38:18 CDT CPT-32412 Visit 13:36:17 CDT CPT-37250 Visit 13:48:22 CDT
--- OUTSIDE RECORDS SUMMARY | 2019-01-13 20:35 | XMS REPORT | Clinical Summary ---
Author Author Admin, MARCO ANTONIO 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 Urinary tract infection, site not specified , [...] tablet by mouth twice daily CIPROFLOXACIN HCL 19854814473 Active Eva Alejo APRN Active CYCLOBENZAPRINE HCL 10 MG TABS 1/2 - 1 tab by mouth three times daily if needed for spasms/pain CYCLOBENZAPRINE HCL 90290778737 No Longer Active Eva Alejo APRN Active NICODERM CQ 7 MG/24HR PT24 1 patch daily x 2 weeks - for smoking cessation NICOTINE 27288220348 Active Jacque Blas MD PhD Active NICODERM CQ 14 MG/24HR PT24 1 patch daily x 2 weeks, then decrease to 7's - for smoking cessation NICOTINE 37890788572 Active Jacque Blas MD PhD Active FLAGYL 500 MG ORAL TABS four tabs PO x 1 METRONIDAZOLE 87395010280 No Longer Active Jacque Blas MD PhD Active BACTRIM DS 800-160 MG ORAL TABS one tab PO BID x 3 days SULFAMETHOXAZOLE-TRIMETHOPRIM 65150042988 No Longer Active Chloe Wagner MD Active METHOCARBAMOL 500 MG ORAL TABS 1 pill by mouth up to four times daily if needed for muscle spasm/pain METHOCARBAMOL 79474747715 Active Jacque Blas MD PhD Active LAMICTAL 25 MG TABS 1 pill by mouth daily x 2 weeks, then 2 pills daily 07/26 LAMOTRIGINE 89827348190 No Longer Active Jacque Blas MD PhD Active LATUDA 40 MG TABS Take one by mouth daily LURASIDONE HCL 88533077357 Active Jacque Blas MD PhD Active HYDROCODONE-ACETAMINOPHEN 7.5-325 MG TABS 1 four times a day as needed for pain HYDROCODONE-ACETAMINOPHEN 03122643794 No Longer Active Jacque Blas MD PhD Active ROBAXIN 500 MG TAB 1-2 pills up to four times daily if needed for muscle spasms METHOCARBAMOL 90552780769 No Longer Active Jacque Blas MD PhD Active CITALOPRAM HYDROBROMIDE 10 MG TABS 1 pill daily, for depression/anxiety 02/09 CITALOPRAM HYDROBROMIDE 11520889815 No Longer Active Jacque Blas MD PhD Active HYDROCODONE-ACETAMINOPHEN 5-325 MG TABS 1 pill three times daily as needed for pain HYDROCODONE-ACETAMINOPHEN 11774174825 No Longer Active Jacque Blas MD PhD Active IBUPROFEN 600 MG TAB 1 pill four times daily, with food IBUPROFEN 43997372085 Active Jacque Blas MD PhD Active TRAMADOL HCL 50 MG TABS 1-2 tablets every 6 hours as needed for pain TRAMADOL HCL 68555058251 No Longer Active Jacque Blas MD PhD Active TYLENOL EXTRA STRENGTH 500 MG TABS 2 @ HS ACETAMINOPHEN 47224975249 No Longer Active Jacque Blas MD PhD Active SERTRALINE HCL 50 MG TABS 1 daily for depression SERTRALINE HCL 08441505702 No Longer Active Jacque Blas MD PhD Active BACTRIM DS 800-160 MG TAB 1 tab by mouth twice daily TRIMETHOPRIM-SULFAMETHOXAZOLE 48936637361 No Longer Active Eva Alejo APRN Active FLHANNAH GUMMIES OMEGA-3 DHA CHEW Take one by mouth daily PEDIATRIC MULTIPLE VIT-C-FA 34334418376 No Longer Active Jacque Blas MD PhD Active RANITIDINE HCL 150 MG CAPS 1 twice a day RANITIDINE HCL 48946004195 No Longer Active Jacque Blas MD PhD Active PNV-OMEGA 28-0.6-0.4-340 MG CAPS 1 pill by mouth daily PRENAT W/O W-IY-CBHFP-FA-OMEGA 62793399996 No Longer Active Jacque Blas MD PhD Active BACTRIM DS 800-160 MG TAB 1 tab by mouth twice daily TRIMETHOPRIM-SULFAMETHOXAZOLE 31200895554 No Longer Active Jacque Blas MD PhD Active METRONIDAZOLE 250 MG TABS 1 TID METRONIDAZOLE 96513569147 No Longer Active Jacque Blas MD PhD Active TRI-SPRINTEC 0.18/0.215/0.25 MG-35 MCG TABS 1 PO q Day NORGESTIM-ETH ESTRAD TRIPHASIC 14575861455 No Longer Active Jacque Blas MD PhD Active ALPRAZOLAM 0.25 MG TABS 1/2 tab to 1 tab PO TID PRN ALPRAZOLAM 71467727541 No Longer Active Jacque Blas MD PhD Active FLUOXETINE HCL 10 MG CAPS 2 PO q AM FLUOXETINE HCL 88267315047 No Longer Active Jacque Blas MD PhD Active ALPRAZOLAM 0.25 MG TABS 1/2 tab to 1 tab PO TID PRN ALPRAZOLAM 0.25 MG TABS 856695 ALPRAZOLAM Inactive TRI-SPRINTEC 0.18/0.215/0.25 MG-35 MCG TABS 1 PO q Day TRI-SPRINTEC 0.18/0.215/0.25 MG-35 MCG TABS 381805 NORGESTIM-ETH ESTRAD TRIPHASIC Inactive PNV-OMEGA 28-0.6-0.4-340 MG CAPS 1 pill by mouth daily PNV-OMEGA 28-0.6-0.4-340 MG CAPS PRENAT W/O H-MG-VFOAX-FA-OMEGA Inactive RANITIDINE HCL 150 MG CAPS 1 twice a day RANITIDINE HCL 150 MG CAPS 760347 RANITIDINE HCL Inactive FLINSTONES GUMMIES OMEGA-3 DHA CHEW Take one by mouth daily FLINSTONES GUMMIES OMEGA-3 DHA CHEW PEDIATRIC MULTIPLE VIT-C-FA Inactive SERTRALINE HCL 50 MG TABS 1 daily for depression SERTRALINE HCL 50 MG TABS 163878 SERTRALINE HCL Inactive TYLENOL EXTRA STRENGTH 500 MG TABS 2 @ HS TYLENOL EXTRA STRENGTH 500 MG TABS 251249 ACETAMINOPHEN Inactive TRAMADOL HCL 50 MG TABS 1-2 tablets every 6 hours as needed for pain TRAMADOL HCL 50 MG TABS 405182 TRAMADOL HCL Inactive HYDROCODONE-ACETAMINOPHEN 5-325 MG TABS 1 pill three times daily as needed for pain HYDROCODONE-ACETAMINOPHEN 5-325 MG TABS 691709 HYDROCODONE-ACETAMINOPHEN Inactive CITALOPRAM HYDROBROMIDE 10 MG TABS 1 pill daily, for depression/anxiety 02/09 CITALOPRAM HYDROBROMIDE 10 MG TABS 747158 CITALOPRAM HYDROBROMIDE Inactive ROBAXIN 500 MG TAB 1-2 pills up to four times daily if needed for muscle spasms ROBAXIN 500 MG TAB 332803 METHOCARBAMOL Inactive HYDROCODONE-ACETAMINOPHEN 7.5-325 MG TABS 1 four times a day as needed for pain HYDROCODONE-ACETAMINOPHEN 7.5-325 MG TABS 059787 HYDROCODONE-ACETAMINOPHEN Inactive LAMICTAL 25 MG TABS 1 pill by mouth daily x 2 weeks, then 2 pills daily 07/26 LAMICTAL 25 MG TABS 463181 LAMOTRIGINE Inactive FLAGYL 500 MG ORAL TABS four tabs PO x 1 FLAGYL 500 MG ORAL TABS 287515 METRONIDAZOLE Inactive CYCLOBENZAPRINE HCL 10 MG TABS 1/2 - 1 tab by mouth three times daily if needed for spasms/pain CYCLOBENZAPRINE HCL 10 MG TABS 827048 CYCLOBENZAPRINE HCL Inactive FLUOXETINE HCL 10 MG CAPS 2 PO q AM FLUOXETINE HCL 10 MG CAPS 372178 FLUOXETINE HCL Inactive METRONIDAZOLE 250 MG TABS 1 TID METRONIDAZOLE 250 MG TABS 031306 METRONIDAZOLE Inactive BACTRIM DS 800-160 MG TAB [...] reduced Diphtheria, and acellular Pertussis Immunization) Adacel [[id number]] tetanus toxoid, reduced diphtheria toxoid, and acellular [...] Value Unit Range Description Lab Report: Chlamydia/GC APTIMA/58754 - Lab chlamydia DNA probe NOT DETECTED NOT DETECTED chlamydia DNA probe NOT DETECTED NOT DETECTED chlamydia DNA probe NOT DETECTED NOT DETECTED chlamydia DNA probe NOT DETECTED NOT DETECTED Lab Report: Chlamydia/GC APTIMA/90393 - Microbiology Neisseria gonorrhoeae DNA probe NOT DETECTED NOT DETECTED Neisseria gonorrhoeae DNA probe NOT DETECTED NOT DETECTED Neisseria gonorrhoeae DNA probe NOT DETECTED NOT DETECTED Neisseria gonorrhoeae DNA probe NOT DETECTED NOT DETECTED Lab Report: Chlamydia/GC APTIMA/56877, Drug Abuse Pnl 10-50/25679 - Lab chlamydia DNA probe NOT DETECTED NOT DETECTED Lab Report: Chlamydia/GC APTIMA/17236, Drug Abuse Pnl 10-50/10236 - Microbiology Neisseria gonorrhoeae DNA probe NOT [...] protein, total urine random 1+ mg/dL Negative protein, total urine random Negative mg/dL Negative RBC, urine, dipstick 1+ Negative Lab Report: Wet Prep, UADIP W/MICRO, AUTO - Urinalysis urobilinogen, urine, semiquantitative (dipstick) 0.2 Normal leukocyte esterase, urine, by dipstick 3+ Negative nitrite, urine, semiquantitative Negative Negative appearance, urine Cloudy Clear urine color Yellow Colorless;Lightyellow;Straw;Yellow glucose, urine, semiquantitative Negative Negative ketones, urine, by test strip Negative Negative bilirubin, urine Negative Negative urine color Yellow Colorless;Lightyellow;Straw;Yellow appearance, urine Cloudy Clear specific gravity, urine 1.010 1.000-1.030 pH, urine, semiquantitative 7.0 5.0-8.5 glucose, urine, semiquantitative Negative Negative ketones, urine, by test strip Negative Negative bilirubin, urine Negative Negative specific gravity, urine 1.010 1.000-1.030 pH, urine, semiquantitative 7.0 5.0-8.5 urobilinogen, urine, semiquantitative (dipstick) 0.2 Normal leukocyte esterase, urine, by dipstick 2+ Negative nitrite, urine, semiquantitative Negative Negative Office Visit: [facility] removal - Chemistry human chorionic gonadotropin, urine, qualitative (urine test) Negative Encounters Code Encounter Date Provider Facility CPT-01861 Level 3 Est. Patient 20:19:50 ENVIRONMENTAL MANAGER Jacque Blas MD [facility] CPT-64075 Level 4 Est. Patient 17:32:49 ENVIRONMENTAL MANAGER Jacque Blas MD [facility] CPT-29159 Level 3 Est. Patient 14:38:20 CDT Jacque Blas MD [facility] CPT-13959 Level 4 Est. Patient 20:19:14 CDT Jacque Blas MD [facility]-52702 Level 3 Est. Patient 15:41:32 CDT Jacque Blas MD [facility]-25431 Level 3 Est. Patient 18:02:00 ENVIRONMENTAL MANAGER Jacque Blas MD [facility] CPT-91837 Level 3 Est. Patient 21:41:26 ENVIRONMENTAL MANAGER Jacque Blas MD [facility] CPT-15555 Level 4 Est. Patient 14:43:47 ENVIRONMENTAL MANAGER Jacque Blas MD [facility] CPT-33609 Level 3 Est. Patient 20:16:54 ENVIRONMENTAL MANAGER Jacque Blas MD [facility] CPT-99487 Level 3 Est. Patient 13:31:37 CDT Jacque Blas MD [facility] CPT-62273 Level 3 New Patient 18:16:07 CDT Jacque Blas MD [facility] Procedures Code Procedure Name Date Entry Date Standard Description CPT-45881 Fluzone Quadrivalent Intramuscular Suspension 0.5 ML 16: 31:47 ENVIRONMENTAL MANAGER CPT-80417 Immunization Single Admin 16:31:47 ENVIRONMENTAL MANAGER CPT-57488 Immunization Single Admin 13:26:18 ENVIRONMENTAL MANAGER CPT-97482 Fluzone Intramuscular Injectable 13:26:18 ENVIRONMENTAL MANAGER CPT-87414 Fluzone Thim Free 36mo and older 12:03:33 ENVIRONMENTAL MANAGER CPT-94581 UHCG (floor use only) 11:49:41 ENVIRONMENTAL MANAGER CPT-OV Office Visit 11:49:41 ENVIRONMENTAL MANAGER CPT-14200 LS spine comp w obliq 15:53:02 ENVIRONMENTAL MANAGER CPT-38373 C-Spine Min 4V 15:53:02 ENVIRONMENTAL MANAGER CPT-92592 UHCG (floor use only) 14:15:45 CDT CPT-22285 UHCG (floor use only) 14:09:15 CDT CPT-J7302 Mirena IUD 13:30:58 CDT CPT-66805 Insertion of IUD 13:30:58 CDT CPT-OV Office Visit 13:30:58 CDT CPT-53307 Visit 10:48:09 CDT CPT-06636 Visit 15:34:57 CDT CPT-60135 Visit 15:25:55 CDT CPT-31908 Visit 13:58:45 CDT CPT-56662 Sono OB comp > 14 weeks 16:57:22 CDT CPT-LR Lesion Removal 09:33:27 CDT CPT-00746 Visit 12:50:42 CDT CPT-91349 Visit 18:34:25 CDT CPT-000 Give Appropriate Tetanus Booster 09:16:14 CDT CPT-62447 Administration single or combination vaccine inc oral 11 :36:32 CDT CPT-22905 Tdap 11:36:32 CDT CPT-19125 Visit 09:16:14 CDT CPT-18304 Visit 13:35:24 CDT CPT-95485 Sono OB comp > 14 weeks 11:46:07 CDT CPT-98757 Visit 17:08:15 CDT CPT-38367 Sono OB comp <14 weeks 15:47:19 ENVIRONMENTAL MANAGER CPT-92354 Visit 13:28:37 CDT CPT-93985 Spec Collection and Handling Fee 12:41:37 CDT CPT-86283 Visit 12:41:07 CDT CPT-90748 Visit 18:48:53 CDT CPT-44419 Visit 16:25:17 CDT CPT-79582 Sono OB comp > 14 weeks 11:38:18 CDT CPT-82921 Visit 13:36:17 CDT CPT-40454 Visit 13:48:22 CDT
--- OUTSIDE RECORDS SUMMARY | 2019-01-13 20:36 | XMS REPORT | Clinical Summary ---
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 Urinary tract infection, site not specified , [...] tablet by mouth twice daily CIPROFLOXACIN HCL 55215820287 Active Eva Alejo APRN Active CYCLOBENZAPRINE HCL 10 MG TABS 1/2 - 1 tab by mouth three times daily if needed for spasms/pain CYCLOBENZAPRINE HCL 08285882704 No Longer Active Eva Alejo APRN Active NICODERM CQ 7 MG/24HR PT24 1 patch daily x 2 weeks - for smoking cessation NICOTINE 39031342611 Active Jacque Blas MD PhD Active NICODERM CQ 14 MG/24HR PT24 1 patch daily x 2 weeks, then decrease to 7's - for smoking cessation NICOTINE 48047188112 Active Jacque Blas MD PhD Active FLAGYL 500 MG ORAL TABS four tabs PO x 1 METRONIDAZOLE 19811787003 No Longer Active Jacque Blas MD PhD Active BACTRIM DS 800-160 MG ORAL TABS one tab PO BID x 3 days SULFAMETHOXAZOLE-TRIMETHOPRIM 66401931006 No Longer Active Chloe Wagner MD Active METHOCARBAMOL 500 MG ORAL TABS 1 pill by mouth up to four times daily if needed for muscle spasm/pain METHOCARBAMOL 49470019024 Active Jacque Blas MD PhD Active LAMICTAL 25 MG TABS 1 pill by mouth daily x 2 weeks, then 2 pills daily 07/26 LAMOTRIGINE 88055355205 No Longer Active Jacque Blas MD PhD Active LATUDA 40 MG TABS Take one by mouth daily LURASIDONE HCL 10307958929 Active Jacque Blas MD PhD Active HYDROCODONE-ACETAMINOPHEN 7.5-325 MG TABS 1 four times a day as needed for pain HYDROCODONE-ACETAMINOPHEN 60308690906 No Longer Active Jacque Blas MD PhD Active ROBAXIN 500 MG TAB 1-2 pills up to four times daily if needed for muscle spasms METHOCARBAMOL 45517345064 No Longer Active Jacque Blas MD PhD Active CITALOPRAM HYDROBROMIDE 10 MG TABS 1 pill daily, for depression/anxiety 02/09 CITALOPRAM HYDROBROMIDE 72753039022 No Longer Active Jacque Blas MD PhD Active HYDROCODONE-ACETAMINOPHEN 5-325 MG TABS 1 pill three times daily as needed for pain HYDROCODONE-ACETAMINOPHEN 85120821028 No Longer Active Jacque Blas MD PhD Active IBUPROFEN 600 MG TAB 1 pill four times daily, with food IBUPROFEN 45473429107 Active Jacque Blas MD PhD Active TRAMADOL HCL 50 MG TABS 1-2 tablets every 6 hours as needed for pain TRAMADOL HCL 92923781774 No Longer Active Jacque Blas MD PhD Active TYLENOL EXTRA STRENGTH 500 MG TABS 2 @ HS ACETAMINOPHEN 84707156536 No Longer Active Jacque Blas MD PhD Active SERTRALINE HCL 50 MG TABS 1 daily for depression SERTRALINE HCL 33357673009 No Longer Active Jacque Blas MD PhD Active BACTRIM DS 800-160 MG TAB 1 tab by mouth twice daily TRIMETHOPRIM-SULFAMETHOXAZOLE 14515107899 No Longer Active Eva Alejo APRN Active FLHANNAH GUMMIES OMEGA-3 DHA CHEW Take one by mouth daily PEDIATRIC MULTIPLE VIT-C-FA 72489815866 No Longer Active Jacque Blas MD PhD Active RANITIDINE HCL 150 MG CAPS 1 twice a day RANITIDINE HCL 15103959354 No Longer Active Jacque Blas MD PhD Active PNV-OMEGA 28-0.6-0.4-340 MG CAPS 1 pill by mouth daily PRENAT W/O B-DZ-SEUWC-FA-OMEGA 86776844461 No Longer Active Jacque Blas MD PhD Active BACTRIM DS 800-160 MG TAB 1 tab by mouth twice daily TRIMETHOPRIM-SULFAMETHOXAZOLE 53022462539 No Longer Active Jacque Blas MD PhD Active METRONIDAZOLE 250 MG TABS 1 TID METRONIDAZOLE 87031608775 No Longer Active Jacque Blas MD PhD Active TRI-SPRINTEC 0.18/0.215/0.25 MG-35 MCG TABS 1 PO q Day NORGESTIM-ETH ESTRAD TRIPHASIC 98057064651 No Longer Active Jacque Blas MD PhD Active ALPRAZOLAM 0.25 MG TABS 1/2 tab to 1 tab PO TID PRN ALPRAZOLAM 15288792057 No Longer Active Jacque Blas MD PhD Active FLUOXETINE HCL 10 MG CAPS 2 PO q AM FLUOXETINE HCL 46827869952 No Longer Active Jacque Blas MD PhD Active ALPRAZOLAM 0.25 MG TABS 1/2 tab to 1 tab PO TID PRN ALPRAZOLAM 0.25 MG TABS 546686 ALPRAZOLAM Inactive TRI-SPRINTEC 0.18/0.215/0.25 MG-35 MCG TABS 1 PO q Day TRI-SPRINTEC 0.18/0.215/0.25 MG-35 MCG TABS 550097 NORGESTIM-ETH ESTRAD TRIPHASIC Inactive PNV-OMEGA 28-0.6-0.4-340 MG CAPS 1 pill by mouth daily PNV-OMEGA 28-0.6-0.4-340 MG CAPS PRENAT W/O I-UD-OKTTY-FA-OMEGA Inactive RANITIDINE HCL 150 MG CAPS 1 twice a day RANITIDINE HCL 150 MG CAPS 450829 RANITIDINE HCL Inactive FLINSTONES GUMMIES OMEGA-3 DHA CHEW Take one by mouth daily FLINSTONES GUMMIES OMEGA-3 DHA CHEW PEDIATRIC MULTIPLE VIT-C-FA Inactive SERTRALINE HCL 50 MG TABS 1 daily for depression SERTRALINE HCL 50 MG TABS 471377 SERTRALINE HCL Inactive TYLENOL EXTRA STRENGTH 500 MG TABS 2 @ HS TYLENOL EXTRA STRENGTH 500 MG TABS 469611 ACETAMINOPHEN Inactive TRAMADOL HCL 50 MG TABS 1-2 tablets every 6 hours as needed for pain TRAMADOL HCL 50 MG TABS 859060 TRAMADOL HCL Inactive HYDROCODONE-ACETAMINOPHEN 5-325 MG TABS 1 pill three times daily as needed for pain HYDROCODONE-ACETAMINOPHEN 5-325 MG TABS 648205 HYDROCODONE-ACETAMINOPHEN Inactive CITALOPRAM HYDROBROMIDE 10 MG TABS 1 pill daily, for depression/anxiety 02/09 CITALOPRAM HYDROBROMIDE 10 MG TABS 929637 CITALOPRAM HYDROBROMIDE Inactive ROBAXIN 500 MG TAB 1-2 pills up to four times daily if needed for muscle spasms ROBAXIN 500 MG TAB 736540 METHOCARBAMOL Inactive HYDROCODONE-ACETAMINOPHEN 7.5-325 MG TABS 1 four times a day as needed for pain HYDROCODONE-ACETAMINOPHEN 7.5-325 MG TABS 687665 HYDROCODONE-ACETAMINOPHEN Inactive LAMICTAL 25 MG TABS 1 pill by mouth daily x 2 weeks, then 2 pills daily 07/26 LAMICTAL 25 MG TABS 027140 LAMOTRIGINE Inactive FLAGYL 500 MG ORAL TABS four tabs PO x 1 FLAGYL 500 MG ORAL TABS 565857 METRONIDAZOLE Inactive CYCLOBENZAPRINE HCL 10 MG TABS 1/2 - 1 tab by mouth three times daily if needed for spasms/pain CYCLOBENZAPRINE HCL 10 MG TABS 297120 CYCLOBENZAPRINE HCL Inactive FLUOXETINE HCL 10 MG CAPS 2 PO q AM FLUOXETINE HCL 10 MG CAPS 694812 FLUOXETINE HCL Inactive METRONIDAZOLE 250 MG TABS 1 TID METRONIDAZOLE 250 MG TABS 886761 METRONIDAZOLE Inactive BACTRIM DS 800-160 MG TAB [...] reduced Diphtheria, and acellular Pertussis Immunization) Adacel [[id number]] tetanus toxoid, reduced diphtheria toxoid, and acellular [...] pressure, diastolic - 8462-4 85 mm[Hg] BP esllers blood pressure, systolic - 8480-6 128 mm[Hg] [...] Value Unit Range Description Lab Report: Chlamydia/GC APTIMA/55137 - Lab chlamydia DNA probe NOT DETECTED NOT DETECTED chlamydia DNA probe NOT DETECTED NOT DETECTED chlamydia DNA probe NOT DETECTED NOT DETECTED chlamydia DNA probe NOT DETECTED NOT DETECTED Lab Report: Chlamydia/GC APTIMA/83470 - Microbiology Neisseria gonorrhoeae DNA probe NOT DETECTED NOT DETECTED Neisseria gonorrhoeae DNA probe NOT DETECTED NOT DETECTED Neisseria gonorrhoeae DNA probe NOT DETECTED NOT DETECTED Neisseria gonorrhoeae DNA probe NOT DETECTED NOT DETECTED Lab Report: Chlamydia/GC APTIMA/25539, Drug Abuse Pnl 10-50/53074 - Lab chlamydia DNA probe NOT DETECTED NOT DETECTED Lab Report: Chlamydia/GC APTIMA/02716, Drug Abuse Pnl 10-50/25226 - Microbiology Neisseria gonorrhoeae DNA probe NOT [...] pH, urine, semiquantitative 7.0 5.0-8.5 Office Visit: [facility] removal - Chemistry human chorionic gonadotropin, urine, qualitative (urine test) Negative Encounters Code Encounter Date Provider Facility CPT-41546 Level 3 Est. Patient 20:19:50 MILLINERY SALESPERSON Jacque Blas MD [facility] CPT-09097 Level 4 Est. Patient 17:32:49 MILLINERY SALESPERSON Jacque Blas MD [facility] CPT-38512 Level 3 Est. Patient 14:38:20 CDT Jacque Blas MD [facility] CPT-20096 Level 4 Est. Patient 20:19:14 CDT Jacque Blas MD [facility] [place] [facility] [place] Level 3 Est. Patient 15:41:32 CDT Jacque Blas MD [facility] [place] [facility] [place]-[address] Level 3 Est. Patient 18:02:00 MILLINERY SALESPERSON Jacque Blas MD [facility] CPT-11792 Level 3 Est. Patient 21:41:26 MILLINERY SALESPERSON Jacque Blas MD [facility] CPT-46848 Level 4 Est. Patient 14:43:47 MILLINERY SALESPERSON Jacque Blas MD [facility] CPT-89177 Level 3 Est. Patient 20:16:54 MILLINERY SALESPERSON Jacque Blas MD [facility] CPT-82295 Level 3 Est. Patient 13:31:37 CDT Jacque Blas MD [facility] CPT-92389 Level 3 New Patient 18:16:07 CDT Jacque Blas MD [facility] Procedures Code Procedure Name Date Entry Date Standard Description CPT-08720 Fluzone Quadrivalent Intramuscular Suspension 0.5 ML 16: 31:47 MILLINERY SALESPERSON CPT-76611 Immunization Single Admin 16:31:47 MILLINERY SALESPERSON CPT-69475 Immunization Single Admin 13:26:18 MILLINERY SALESPERSON CPT-28880 Fluzone Intramuscular Injectable 13:26:18 MILLINERY SALESPERSON CPT-40245 Fluzone Thim Free 36mo and older 12:03:33 MILLINERY SALESPERSON CPT-30757 UHCG (floor use only) 11:49:41 MILLINERY SALESPERSON CPT-OV Office Visit 11:49:41 MILLINERY SALESPERSON CPT-99324 LS spine comp w obliq 15:53:02 MILLINERY SALESPERSON CPT-47252 C-Spine Min 4V 15:53:02 MILLINERY SALESPERSON CPT-66164 UHCG (floor use only) 14:15:45 CDT CPT-01003 UHCG (floor use only) 14:09:15 CDT CPT-J7302 Mirena IUD 13:30:58 CDT CPT-21049 Insertion of IUD 13:30:58 CDT CPT-OV Office Visit 13:30:58 CDT CPT-04703 Visit 10:48:09 CDT CPT-99332 Visit 15:34:57 CDT CPT-98874 Visit 15:25:55 CDT CPT-54600 Visit 13:58:45 CDT CPT-89644 Sono OB comp > 14 weeks 16:57:22 CDT CPT-LR Lesion Removal 09:33:27 CDT CPT-67550 Visit 12:50:42 CDT CPT-49374 Visit 18:34:25 CDT CPT-000 Give Appropriate Tetanus Booster 09:16:14 CDT CPT-64509 Administration single or combination vaccine inc oral 11 :36:32 CDT CPT-95814 Tdap 11:36:32 CDT CPT-71934 Visit 09:16:14 CDT CPT-73152 Visit 13:35:24 CDT CPT-59681 Sono OB comp > 14 weeks 11:46:07 CDT CPT-14504 Visit 17:08:15 CDT CPT-86997 Sono OB comp <14 weeks 15:47:19 MILLINERY SALESPERSON CPT-76216 Visit 13:28:37 CDT CPT-82567 Spec Collection and Handling Fee 12:41:37 CDT CPT-75820 Visit 12:41:07 CDT CPT-09633 Visit 18:48:53 CDT CPT-30193 Visit 16:25:17 CDT CPT-78482 Sono OB comp > 14 weeks 11:38:18 CDT CPT-74550 Visit 13:36:17 CDT CPT-70897 Visit 13:48:22 CDT
--- OUTSIDE RECORDS SUMMARY | 2019-01-13 20:36 | XMS REPORT | Clinical Summary ---
Author Author Admin, MARCO ANTONIO Gardiner [facility] Address Unknown Phone Unavailable Allergies, Adverse [...] MOVMNTS MGMT MOTH ANTPRTM COND/COMP 655.73 Resolved Jcaque Blas MD PhD Decreased movements affecting management [...] vaccination and inoculation against other viral diseases EXCESS GROWTH AFFECT MGMT MOTH ANTPRTM ICD-656.63 [...] TO ICD-V01.6 Inactive Jacque Blas MD PhD OTHER SPECIFED COMPLICATION ANTEPARTUM ICD-646.83 Inactive Jacque Blas MD PhD BACTERIAL VAGINITIS ICD-616.10 Inactive Jacque Blas MD PhD IRREGULAR MENSES ICD-626.4 Inactive Jacque Blas MD PhD HEARTBURN ICD-787.1 Inactive Jacque Blas MD PhD WARTS, VIRAL, UNSPECIFIED ICD-078.10 Inactive Jacque Blas MD PhD EXAMINATION ICD-V24.2 Inactive Jacque Blas MD PhD , NORMAL, MULTIGRAVIDA ICD-V22.1 Inactive Jacque Blas MD PhD DECR MOVMNTS MGMT MOTH ANTPRTM COND/COMP ICD-655.73 Inactive Jacque Blas MD PhD Medication List Medication Instructions Start Date Stop Date Generic Name NDC Status Provider Patient Instruction BACTRIM DS 800-160 MG ORAL TABS one tab PO BID x 3 days SULFAMETHOXAZOLE-TRIMETHOPRIM 86761946116 Active Chloe Wagner MD Active FLAGYL 500 MG ORAL TABS four tabs PO x 1 METRONIDAZOLE 91620594306 Active Chloe Wagner MD Active METHOCARBAMOL 500 MG ORAL TABS 1 pill by mouth up to four times daily if needed for muscle spasm/pain METHOCARBAMOL 40796544184 Active Jacque Blas MD PhD Active CYCLOBENZAPRINE HCL 10 MG TABS 1/2 - 1 tab by mouth three times daily if needed for spasms/pain CYCLOBENZAPRINE HCL 79018632093 Active Jacque Blas MD PhD Active LAMICTAL 25 MG TABS 1 pill by mouth daily x 2 weeks, then 2 pills daily 07/26 LAMOTRIGINE 29257551696 No Longer Active Jacque Blas MD PhD Active LATUDA 40 MG TABS Take one by mouth daily LURASIDONE HCL 00908442258 Active Jacque Blas MD PhD Active HYDROCODONE-ACETAMINOPHEN 7.5-325 MG TABS 1 four times a day as needed for pain HYDROCODONE-ACETAMINOPHEN 88487151895 No Longer Active Jacque Blas MD PhD Active ROBAXIN 500 MG TAB 1-2 pills up to four times daily if needed for muscle spasms METHOCARBAMOL 14125537022 No Longer Active Jacque Blas MD PhD Active CITALOPRAM HYDROBROMIDE 10 MG TABS 1 pill daily, for depression/anxiety 02/09 CITALOPRAM HYDROBROMIDE 37537437082 No Longer Active Jacque Blas MD PhD Active HYDROCODONE-ACETAMINOPHEN 5-325 MG TABS 1 pill three times daily as needed for pain HYDROCODONE-ACETAMINOPHEN 84355042463 No Longer Active Jacque Blas MD PhD Active IBUPROFEN 600 MG TAB 1 pill four times daily, with food IBUPROFEN 47464438384 Active Jacque Blas MD PhD Active TRAMADOL HCL 50 MG TABS 1-2 tablets every 6 hours as needed for pain TRAMADOL HCL 91077605721 No Longer Active Jacque Blas MD PhD Active TYLENOL EXTRA STRENGTH 500 MG TABS 2 @ HS ACETAMINOPHEN 61316117909 No Longer Active Jacque Blas MD PhD Active SERTRALINE HCL 50 MG TABS 1 daily for depression SERTRALINE HCL 10088672283 No Longer Active Jacque Blas MD PhD Active BACTRIM DS 800-160 MG TAB 1 tab by mouth twice daily TRIMETHOPRIM-SULFAMETHOXAZOLE 90379307960 No Longer Active Eva Alejo APRN Active FLINSJAMAR GUMMIELÍAS OMEGA-3 DHA CHEW Take one by mouth daily PEDIATRIC MULTIPLE VIT-C-FA 11077426537 No Longer Active Jacque Blas MD PhD Active RANITIDINE HCL 150 MG CAPS 1 twice a day RANITIDINE HCL 19332573554 No Longer Active Jacque Blas MD PhD Active PNV-OMEGA 28-0.6-0.4-340 MG CAPS 1 pill by mouth daily PRENAT W/O D-DK-[id number]-FA-OMEGA 91974069773 No Longer Active Jacque Blas MD PhD Active BACTRIM DS 800-160 MG TAB 1 tab by mouth twice daily TRIMETHOPRIM-SULFAMETHOXAZOLE 58619836568 No Longer Active Jacque Blas MD PhD Active METRONIDAZOLE 250 MG TABS 1 TID METRONIDAZOLE 66686323609 No Longer Active Jacque Blas MD PhD Active TRI-SPRINTEC 0.18/0.215/0.25 MG-35 MCG TABS 1 PO q Day NORGESTIM-ETH ESTRAD TRIPHASIC 26233772955 No Longer Active Jacque Blas MD PhD Active ALPRAZOLAM 0.25 MG TABS 1/2 tab to 1 tab PO TID PRN ALPRAZOLAM 31110620519 No Longer Active Jacque Blas MD PhD Active FLUOXETINE HCL 10 MG CAPS 2 PO q AM FLUOXETINE HCL 80575695540 No Longer Active Jacque Blas MD PhD Active ALPRAZOLAM 0.25 MG TABS 1/2 tab to 1 tab PO TID PRN ALPRAZOLAM 0.25 MG TABS 552739 ALPRAZOLAM Inactive TRI-SPRINTEC 0.18/0.215/0.25 MG-35 MCG TABS 1 PO q Day TRI-SPRINTEC 0.18/0.215/0.25 MG-35 MCG TABS 926419 NORGESTIM-ETH ESTRAD TRIPHASIC Inactive PNV-OMEGA 28-0.6-0.4-340 MG CAPS 1 pill by mouth daily PNV-OMEGA 28-0.6-0.4-340 MG CAPS PRENAT W/O [id number]-OMEGA Inactive RANITIDINE HCL 150 MG CAPS 1 twice a day RANITIDINE HCL 150 MG CAPS 548847 RANITIDINE HCL Inactive FLINSTONES GUMMIES OMEGA-3 DHA CHEW Take one by mouth daily FLINSTONES GUMMIES OMEGA-3 DHA CHEW PEDIATRIC MULTIPLE VIT-C-FA Inactive SERTRALINE HCL 50 MG TABS 1 daily for depression SERTRALINE HCL 50 MG TABS 215490 SERTRALINE HCL Inactive TYLENOL EXTRA STRENGTH 500 MG TABS 2 @ HS TYLENOL EXTRA STRENGTH 500 MG TABS 574267 ACETAMINOPHEN Inactive TRAMADOL HCL 50 MG TABS 1-2 tablets every 6 hours as needed for pain TRAMADOL HCL 50 MG TABS 141434 TRAMADOL HCL Inactive HYDROCODONE-ACETAMINOPHEN 5-325 MG TABS 1 pill three times daily as needed for pain HYDROCODONE-ACETAMINOPHEN 5-325 MG TABS 447428 HYDROCODONE-ACETAMINOPHEN Inactive CITALOPRAM HYDROBROMIDE 10 MG TABS 1 pill daily, for depression/anxiety 02/09 CITALOPRAM HYDROBROMIDE 10 MG TABS 040438 CITALOPRAM HYDROBROMIDE Inactive ROBAXIN 500 MG TAB 1-2 pills up to four times daily if needed for muscle spasms ROBAXIN 500 MG TAB 510520 METHOCARBAMOL Inactive HYDROCODONE-ACETAMINOPHEN 7.5-325 MG TABS 1 four times a day as needed for pain HYDROCODONE-ACETAMINOPHEN 7.5-325 MG TABS 798049 HYDROCODONE-ACETAMINOPHEN Inactive LAMICTAL 25 MG TABS 1 pill by mouth daily x 2 weeks, then 2 pills daily 07/26 LAMICTAL 25 MG TABS 627889 LAMOTRIGINE Inactive FLUOXETINE HCL 10 MG CAPS 2 PO q AM FLUOXETINE HCL 10 MG CAPS 972089 FLUOXETINE HCL Inactive METRONIDAZOLE 250 MG TABS 1 TID METRONIDAZOLE 250 MG TABS 870516 METRONIDAZOLE Inactive BACTRIM DS 800-160 MG TAB [...] reduced Diphtheria, and acellular Pertussis Immunization) Adacel [[id number]] tetanus toxoid, reduced diphtheria toxoid, and acellular [...] Value Unit Range Description Lab Report: Chlamydia/GC APTIMA/86892 - Lab chlamydia DNA probe NOT DETECTED NOT DETECTED chlamydia DNA probe NOT DETECTED NOT DETECTED Lab Report: Chlamydia/GC APTIMA/92936 - Microbiology Neisseria gonorrhoeae DNA probe NOT DETECTED NOT DETECTED Neisseria gonorrhoeae DNA probe NOT DETECTED NOT DETECTED Lab Report: Chlamydia/GC APTIMA/41699, Drug Abuse Pnl 10-50/36415 - Lab chlamydia DNA probe NOT DETECTED NOT DETECTED Lab Report: Chlamydia/GC APTIMA/62596, Drug Abuse Pnl 10-50/36918 - Microbiology Neisseria gonorrhoeae DNA probe NOT [...] Negative Encounters Code Encounter Date Provider Facility CPT-21376 Level 3 Est. Patient 20:19:50 NURSE ADVOCATE Jacque Blas MD PhD [facility] CPT-79423 Level 4 Est. Patient 17:32:49 NURSE ADVOCATE Jacque Blas MD PhD [facility] CPT-06514 Level 3 Est. Patient 14:38:20 CDT Jacque Blas MD PhD [facility] CPT-19463 Level 4 Est. Patient 20:19:14 CDT Jacque Blas MD PhD [facility] CPT-83080 Level 3 Est. Patient 15:41:32 CDT Jacque Blas MD [facility] CPT-10485 Level 3 Est. Patient 18:02:00 NURSE ADVOCATE Jacque Blas MD [facility] CPT-68346 Level 3 Est. Patient 21:41:26 NURSE ADVOCATE Jacque Blas MD [facility] CPT-19153 Level 4 Est. Patient 14:43:47 NURSE ADVOCATE Jacque Blas MD [facility] CPT-79676 Level 3 Est. Patient 20:16:54 NURSE ADVOCATE Jacque Blas MD [facility] CPT-19718 Level 3 Est. Patient 13:31:37 CDT Jacque Blas MD [facility] CPT-09485 Level 3 New Patient 18:16:07 CDT Jacque Blas MD [facility] Procedures Code Procedure Name Date Entry Date Standard Description CPT-85212 Immunization Single Admin 13:26:18 NURSE ADVOCATE CPT-04924 Fluzone Intramuscular Injectable 13:26:18 NURSE ADVOCATE CPT-36235 Fluzone Thim Free 36mo and older 12:03:33 NURSE ADVOCATE CPT-83184 UHCG (floor use only) 11:49:41 NURSE ADVOCATE CPT-OV Office Visit 11:49:41 NURSE ADVOCATE CPT-37141 LS spine comp w obliq 15:53:02 NURSE ADVOCATE CPT-26335 C-Spine Min 4V 15:53:02 NURSE ADVOCATE CPT-69256 UHCG (floor use only) 14:15:45 CDT CPT-30725 UHCG (floor use only) 14:09:15 CDT CPT-J7302 Mirena IUD 13:30:58 CDT CPT-61860 Insertion of IUD 13:30:58 CDT CPT-OV Office Visit 13:30:58 CDT CPT-76570 Visit 10:48:09 CDT CPT-55940 Visit 15:34:57 CDT CPT-61567 Visit 15:25:55 CDT CPT-21692 Visit 13:58:45 CDT CPT-44159 Sono OB comp > 14 weeks 16:57:22 CDT CPT-LR Lesion Removal 09:33:27 CDT CPT-38561 Visit 12:50:42 CDT CPT-23209 Visit 18:34:25 CDT CPT-000 Give Appropriate Tetanus Booster 09:16:14 CDT CPT-72966 Administration single or combination vaccine inc oral 11 :36:32 CDT CPT-79501 Tdap 11:36:32 CDT CPT-67491 Visit 09:16:14 CDT CPT-41711 Visit 13:35:24 CDT CPT-69873 Sono OB comp > 14 weeks 11:46:07 CDT CPT-50938 Visit 17:08:15 CDT CPT-45956 Sono OB comp <14 weeks 15:47:19 NURSE ADVOCATE CPT-31004 Visit 13:28:37 CDT CPT-70331 Spec Collection and Handling Fee 12:41:37 CDT CPT-22137 Visit 12:41:07 CDT CPT-23092 Visit 18:48:53 CDT CPT-24714 Visit 16:25:17 CDT CPT-17659 Sono OB comp > 14 weeks 11:38:18 CDT CPT-54700 Visit 13:36:17 CDT CPT-24718 Visit 13:48:22 CDT
--- OUTSIDE RECORDS SUMMARY | 2019-01-13 20:37 | XMS REPORT ---
Author Author [facility] Medical Staff Organization [facility] Address [address] [place], [place] [id number] Phone [phone] Care Team Providers Care Head Girls Golf Coach Name Role Phone RAMSES MENDOZA, EDDY PP [phone] Summary purpose TRANSITION OF CARE AUTO GENERATION [...] tests and/or laboratory data RESULTS Radiology Results [id number]:00 LUMBAR SPINE XRAY - 2V PACs Image DATE OF EXAM: Jan 23 2015 RAD 1027-LUMBAR SPINE XRAY-2 VIEW : RADIOLOGY REPORT DATE OF SERVICE: 01/23/15 HISTORY: Low back pain, myalgia and myositis LUMBAR SPINE 2 [id number] HOURS The lumbar vertebrae are normal in height. There is mild L5-S1 spondylolisthesis. There is probable L5 spondylolysis. The disc spaces are otherwise well maintained. IMPRESSION: L5-S1 spondylolisthesis and probable L5 spondylolysis. MD MILI Castillo/va01/23/2015 09:34:00 / 01/23/2015 10:25:41 cc:Dr. Bradley Romero This document has been electronically Signed by: On: DATE OF EXAM: Jan 23 2015 RAD 1027-LUMBAR SPINE XRAY-2 VIEW : RADIOLOGY REPORT DATE OF SERVICE: 01/23/15 HISTORY: Low back pain, myalgia and myositis LUMBAR SPINE 2 [id number] HOURS The lumbar vertebrae are normal in height. There is mild L5-S1 spondylolisthesis. There is probable L5 spondylolysis. The disc spaces are otherwise well maintained. IMPRESSION: L5-S1 spondylolisthesis and probable L5 spondylolysis. Johnnie Lazcano MD MWD/nh01/23/2015 09:34:00 / 01/23/2015 10:25:41 cc:Dr. Bradley Romero This document has been electronically Signed by: JOHNNIE LAZCANO On: Jan 23 2015 11:59A Result Amended on 2015-01-23 at 11:59:59. Previous status was [place]. History of procedures No procedures recorded for [...]
--- OUTSIDE RECORDS SUMMARY | 2019-01-13 20:37 | XMS REPORT | Clinical Summary ---
Author Author Admin, MARCO ANTONIO Gardiner [facility] Address Unknown Phone Unavailable Allergies, Adverse Reactions, [...] other viral diseases , NORMAL ICD-V22.2 Inactive Jacuqe Blas MD PhD EXCESS GROWTH AFFECT MGMT [...] 2 weeks - for smoking cessation NICOTINE 19407972342 Active Jacque Blas MD PhD Active NICODERM CQ 14 MG/24HR PT24 1 patch daily x 2 weeks, then decrease to 7's - for smoking cessation NICOTINE 01213160710 Active Jacque Blas MD PhD Active FLAGYL 500 MG ORAL TABS four tabs PO x 1 METRONIDAZOLE 63592101238 No Longer Active Jacque Blas MD PhD Active BACTRIM DS 800-160 MG ORAL TABS one tab PO BID x 3 days SULFAMETHOXAZOLE-TRIMETHOPRIM 71860700491 No Longer Active Chloe Wagner MD Active METHOCARBAMOL 500 MG ORAL TABS 1 pill by mouth up to four times daily if needed for muscle spasm/pain METHOCARBAMOL 22236864579 Active Jacque Blas MD PhD Active CYCLOBENZAPRINE HCL 10 MG TABS 1/2 - 1 tab by mouth three times daily if needed for spasms/pain CYCLOBENZAPRINE HCL 31957693355 Active Jacque Blas MD PhD Active LAMICTAL 25 MG TABS 1 pill by mouth daily x 2 weeks, then 2 pills daily 07/26 LAMOTRIGINE 96625234629 No Longer Active Jacque Blas MD PhD Active LATUDA 40 MG TABS Take one by mouth daily LURASIDONE HCL 52480843620 Active Jacque Blas MD PhD Active HYDROCODONE-ACETAMINOPHEN 7.5-325 MG TABS 1 four times a day as needed for pain HYDROCODONE-ACETAMINOPHEN 22461772208 No Longer Active Jacque Blas MD PhD Active ROBAXIN 500 MG TAB 1-2 pills up to four times daily if needed for muscle spasms METHOCARBAMOL 78920785576 No Longer Active Jacque Blas MD PhD Active CITALOPRAM HYDROBROMIDE 10 MG TABS 1 pill daily, for depression/anxiety 02/09 CITALOPRAM HYDROBROMIDE 13261523003 No Longer Active Jacque Blas MD PhD Active HYDROCODONE-ACETAMINOPHEN 5-325 MG TABS 1 pill three times daily as needed for pain HYDROCODONE-ACETAMINOPHEN 83801235354 No Longer Active Jacque Blas MD PhD Active IBUPROFEN 600 MG TAB 1 pill four times daily, with food IBUPROFEN 95978566061 Active Jacque Blas MD PhD Active TRAMADOL HCL 50 MG TABS 1-2 tablets every 6 hours as needed for pain TRAMADOL HCL 96220339583 No Longer Active Jacque Blas MD PhD Active TYLENOL EXTRA STRENGTH 500 MG TABS 2 @ HS ACETAMINOPHEN 77487444299 No Longer Active Jacque Blas MD PhD Active SERTRALINE HCL 50 MG TABS 1 daily for depression SERTRALINE HCL 33786384786 No Longer Active Jacque Blas MD PhD Active BACTRIM DS 800-160 MG TAB 1 tab by mouth twice daily TRIMETHOPRIM-SULFAMETHOXAZOLE 04144990458 No Longer Active Eva Alejo APRN Active FLINSTONES GUMMIES OMEGA-3 DHA CHEW Take one by mouth daily PEDIATRIC MULTIPLE VIT-C-FA 19243752723 No Longer Active Jacque Blas MD PhD Active RANITIDINE HCL 150 MG CAPS 1 twice a day RANITIDINE HCL 90929097868 No Longer Active Jacque Blas MD PhD Active PNV-OMEGA 28-0.6-0.4-340 MG CAPS 1 pill by mouth daily PRENAT W/O D-FD-UGPUZ-FA-OMEGA 39531284662 No Longer Active Jacque Blas MD PhD Active BACTRIM DS 800-160 MG TAB 1 tab by mouth twice daily TRIMETHOPRIM-SULFAMETHOXAZOLE 88368810669 No Longer Active Jacque Blas MD PhD Active METRONIDAZOLE 250 MG TABS 1 TID METRONIDAZOLE 22853165829 No Longer Active Jacque Blas MD PhD Active TRI-SPRINTEC 0.18/0.215/0.25 MG-35 MCG TABS 1 PO q Day NORGESTIM-ETH ESTRAD TRIPHASIC 97184507606 No Longer Active Jacque Blas MD PhD Active ALPRAZOLAM 0.25 MG TABS 1/2 tab to 1 tab PO TID PRN ALPRAZOLAM 59246111019 No Longer Active Jacque Blas MD PhD Active FLUOXETINE HCL 10 MG CAPS 2 PO q AM FLUOXETINE HCL 72710514221 No Longer Active Jacque Blas MD PhD Active ALPRAZOLAM 0.25 MG TABS 1/2 tab to 1 tab PO TID PRN ALPRAZOLAM 0.25 MG TABS 381669 ALPRAZOLAM Inactive TRI-SPRINTEC 0.18/0.215/0.25 MG-35 MCG TABS 1 PO q Day TRI-SPRINTEC 0.18/0.215/0.25 MG-35 MCG TABS 615303 NORGESTIM-ETH ESTRAD TRIPHASIC Inactive PNV-OMEGA 28-0.6-0.4-340 MG CAPS 1 pill by mouth daily PNV-OMEGA 28-0.6-0.4-340 MG CAPS PRENAT W/O U-WU-QBSNA-FA-OMEGA Inactive RANITIDINE HCL 150 MG CAPS 1 twice a day RANITIDINE HCL 150 MG CAPS 611137 RANITIDINE HCL Inactive FLINSTONES GUMMIES OMEGA-3 DHA CHEW Take one by mouth daily FLINSTONES GUMMIES OMEGA-3 DHA CHEW PEDIATRIC MULTIPLE VIT-C-FA Inactive SERTRALINE HCL 50 MG TABS 1 daily for depression SERTRALINE HCL 50 MG TABS 272521 SERTRALINE HCL Inactive TYLENOL EXTRA STRENGTH 500 MG TABS 2 @ HS TYLENOL EXTRA STRENGTH 500 MG TABS 257227 ACETAMINOPHEN Inactive TRAMADOL HCL 50 MG TABS 1-2 tablets every 6 hours as needed for pain TRAMADOL HCL 50 MG TABS 655272 TRAMADOL HCL Inactive HYDROCODONE-ACETAMINOPHEN 5-325 MG TABS 1 pill three times daily as needed for pain HYDROCODONE-ACETAMINOPHEN 5-325 MG TABS 982895 HYDROCODONE-ACETAMINOPHEN Inactive CITALOPRAM HYDROBROMIDE 10 MG TABS 1 pill daily, for depression/anxiety 02/09 CITALOPRAM HYDROBROMIDE 10 MG TABS 630219 CITALOPRAM HYDROBROMIDE Inactive ROBAXIN 500 MG TAB 1-2 pills up to four times daily if needed for muscle spasms ROBAXIN 500 MG TAB 011617 METHOCARBAMOL Inactive HYDROCODONE-ACETAMINOPHEN 7.5-325 MG TABS 1 four times a day as needed for pain HYDROCODONE-ACETAMINOPHEN 7.5-325 MG TABS 914504 HYDROCODONE-ACETAMINOPHEN Inactive LAMICTAL 25 MG TABS 1 pill by mouth daily x 2 weeks, then 2 pills daily 07/26 LAMICTAL 25 MG TABS 152965 LAMOTRIGINE Inactive FLAGYL 500 MG ORAL TABS four tabs PO x 1 FLAGYL 500 MG ORAL TABS 025565 METRONIDAZOLE Inactive FLUOXETINE HCL 10 MG CAPS 2 PO q AM FLUOXETINE HCL 10 MG CAPS 352576 FLUOXETINE HCL Inactive METRONIDAZOLE 250 MG TABS 1 TID METRONIDAZOLE 250 MG TABS 024641 METRONIDAZOLE Inactive BACTRIM DS 800-160 MG TAB [...] reduced Diphtheria, and acellular Pertussis Immunization) Adacel [[id number]] tetanus toxoid, reduced diphtheria toxoid, and acellular [...] Value Unit Range Description Lab Report: Chlamydia/GC APTIMA/54243 - Lab chlamydia DNA probe NOT DETECTED NOT DETECTED chlamydia DNA probe NOT DETECTED NOT DETECTED chlamydia DNA probe NOT DETECTED NOT DETECTED Lab Report: Chlamydia/GC APTIMA/93314 - Microbiology Neisseria gonorrhoeae DNA probe NOT DETECTED NOT DETECTED Neisseria gonorrhoeae DNA probe NOT DETECTED NOT DETECTED Neisseria gonorrhoeae DNA probe NOT DETECTED NOT DETECTED Lab Report: Chlamydia/GC APTIMA/69857, Drug Abuse Pnl 10-50/27140 - Lab chlamydia DNA probe NOT DETECTED NOT DETECTED Lab Report: Chlamydia/GC APTIMA/54468, Drug Abuse Pnl 1050/14346 - Microbiology Neisseria gonorrhoeae DNA probe NOT [...] Negative Encounters Code Encounter Date Provider Facility CPT-92674 Level 3 Est. Patient 20:19:50 FIBER OPTICS ENGINEER Jacque Blas MD [facility] CPT-25176 Level 4 Est. Patient 17:32:49 FIBER OPTICS ENGINEER Jacque Blas MD [facility] CPT-69713 Level 3 Est. Patient 14:38:20 CDT Jacque Blas MD [facility] CPT-83556 Level 4 Est. Patient 20:19:14 CDT Jacque Blas MD [facility] CPT-55189 Level 3 Est. Patient 15:41:32 CDT Jacque Blas MD [facility] CPT-69312 Level 3 Est. Patient 18:02:00 FIBER OPTICS ENGINEER Jacque Blas MD [facility] CPT-41089 Level 3 Est. Patient 21:41:26 FIBER OPTICS ENGINEER Jacque Blas MD [facility] CPT-25571 Level 4 Est. Patient 14:43:47 FIBER OPTICS ENGINEER Jacque Blas MD [facility] CPT-90240 Level 3 Est. Patient 20:16:54 FIBER OPTICS ENGINEER Jacque Blas MD [facility] CPT-43899 Level 3 Est. Patient 13:31:37 CDT Jacque Blas MD [facility] CPT-35527 Level 3 New Patient 18:16:07 CDT Jacque Blas MD [facility] Procedures Code Procedure Name Date Entry Date Standard Description CPT-56063 Immunization Single Admin 13:26:18 FIBER OPTICS ENGINEER CPT-16965 Fluzone Intramuscular Injectable 13:26:18 FIBER OPTICS ENGINEER CPT-74007 Fluzone Thim Free 36mo and older 12:03:33 FIBER OPTICS ENGINEER CPT-72178 UHCG (floor use only) 11:49:41 FIBER OPTICS ENGINEER CPT-OV Office Visit 11:49:41 FIBER OPTICS ENGINEER CPT-52244 LS spine comp w obliq 15:53:02 FIBER OPTICS ENGINEER CPT-14733 C-Spine Min 4V 15:53:02 FIBER OPTICS ENGINEER CPT-93810 UHCG (floor use only) 14:15:45 CDT CPT-07030 UHCG (floor use only) 14:09:15 CDT CPT-J7302 Mirena IUD 13:30:58 CDT CPT-99347 Insertion of IUD 13:30:58 CDT CPT-OV Office Visit 13:30:58 CDT CPT-05998 Visit 10:48:09 CDT CPT-79383 Visit 15:34:57 CDT CPT-00727 Visit 15:25:55 CDT CPT-67411 Visit 13:58:45 CDT CPT-54302 Sono OB comp > 14 weeks 16:57:22 CDT CPT-LR Lesion Removal 09:33:27 CDT CPT-45649 Visit 12:50:42 CDT CPT-92425 Visit 18:34:25 CDT CPT-000 Give Appropriate Tetanus Booster 09:16:14 CDT CPT-81104 Administration single or combination vaccine inc oral 11 :36:32 CDT CPT-67028 Tdap 11:36:32 CDT CPT-66816 Visit 09:16:14 CDT CPT-61271 Visit 13:35:24 CDT CPT-56653 Sono OB comp > 14 weeks 11:46:07 CDT CPT-71038 Visit 17:08:15 CDT CPT-81785 Sono OB comp <14 weeks 15:47:19 FIBER OPTICS ENGINEER CPT-37886 Visit 13:28:37 CDT CPT-21880 Spec Collection and Handling Fee 12:41:37 CDT CPT-22284 Visit 12:41:07 CDT CPT-37165 Visit 18:48:53 CDT CPT-46664 Visit 16:25:17 CDT CPT-42715 Sono OB comp > 14 weeks 11:38:18 CDT CPT-04783 Visit 13:36:17 CDT CPT-66411 Visit 13:48:22 CDT
--- OUTSIDE RECORDS SUMMARY | 2019-01-13 20:38 | XMS REPORT | Clinical Summary ---
Author Author Admin, MARCO ANTONIO Gardiner [facility] Address Unknown Phone Unavailable Allergies, Adverse Reactions, [...] 2 weeks - for smoking cessation NICOTINE 01400169340 Active Jacque Blas MD PhD Active NICODERM CQ 14 MG/24HR PT24 1 patch daily x 2 weeks, then decrease to 7's - for smoking cessation NICOTINE 76902552324 Active Jacque Blas MD PhD Active FLAGYL 500 MG ORAL TABS four tabs PO x 1 METRONIDAZOLE 64950259348 No Longer Active Jacque Blas MD PhD Active BACTRIM DS 800-160 MG ORAL TABS one tab PO BID x 3 days SULFAMETHOXAZOLE-TRIMETHOPRIM 75220009693 No Longer Active Chloe Wagner MD Active METHOCARBAMOL 500 MG ORAL TABS 1 pill by mouth up to four times daily if needed for muscle spasm/pain METHOCARBAMOL 08952300493 Active Jacque Blas MD PhD Active CYCLOBENZAPRINE HCL 10 MG TABS 1/2 - 1 tab by mouth three times daily if needed for spasms/pain CYCLOBENZAPRINE HCL 03214239637 Active Jacque Blas MD PhD Active LAMICTAL 25 MG TABS 1 pill by mouth daily x 2 weeks, then 2 pills daily 07/26 LAMOTRIGINE 67190011558 No Longer Active Jacque Blas MD PhD Active LATUDA 40 MG TABS Take one by mouth daily LURASIDONE HCL 59815596899 Active Jacque Blas MD PhD Active HYDROCODONE-ACETAMINOPHEN 7.5-325 MG TABS 1 four times a day as needed for pain HYDROCODONE-ACETAMINOPHEN 44675607362 No Longer Active Jacque Blas MD PhD Active ROBAXIN 500 MG TAB 1-2 pills up to four times daily if needed for muscle spasms METHOCARBAMOL 93704231908 No Longer Active Jacque Blas MD PhD Active CITALOPRAM HYDROBROMIDE 10 MG TABS 1 pill daily, for depression/anxiety 02/09 CITALOPRAM HYDROBROMIDE 89744939113 No Longer Active Jacque Blas MD PhD Active HYDROCODONE-ACETAMINOPHEN 5-325 MG TABS 1 pill three times daily as needed for pain HYDROCODONE-ACETAMINOPHEN 51061917005 No Longer Active Jacque Blas MD PhD Active IBUPROFEN 600 MG TAB 1 pill four times daily, with food IBUPROFEN 68736720481 Active Jacque Blas MD PhD Active TRAMADOL HCL 50 MG TABS 1-2 tablets every 6 hours as needed for pain TRAMADOL HCL 97908371778 No Longer Active Jacque Blas MD PhD Active TYLENOL EXTRA STRENGTH 500 MG TABS 2 @ HS ACETAMINOPHEN 87649298047 No Longer Active Jacque Blas MD PhD Active SERTRALINE HCL 50 MG TABS 1 daily for depression SERTRALINE HCL 51364747299 No Longer Active Jacque Blas MD PhD Active BACTRIM DS 800-160 MG TAB 1 tab by mouth twice daily TRIMETHOPRIM-SULFAMETHOXAZOLE 72377382632 No Longer Active Eva Alejo APRN Active FLINSTONES GUMMIES OMEGA-3 DHA CHEW Take one by mouth daily PEDIATRIC MULTIPLE VIT-C-FA 22162001408 No Longer Active Jacque Blas MD PhD Active RANITIDINE HCL 150 MG CAPS 1 twice a day RANITIDINE HCL 20342108322 No Longer Active Jaqcue Blas MD PhD Active PNV-OMEGA 28-0.6-0.4-340 MG CAPS 1 pill by mouth daily PRENAT W/O A-WO-OPDDL-FA-OMEGA 01848526250 No Longer Active Jacque Blas MD PhD Active BACTRIM DS 800-160 MG TAB 1 tab by mouth twice daily TRIMETHOPRIM-SULFAMETHOXAZOLE 71379349180 No Longer Active Jacque Blas MD PhD Active METRONIDAZOLE 250 MG TABS 1 TID METRONIDAZOLE 62156381697 No Longer Active Jacque Blas MD PhD Active TRI-SPRINTEC 0.18/0.215/0.25 MG-35 MCG TABS 1 PO q Day NORGESTIM-ETH ESTRAD TRIPHASIC 07230471976 No Longer Active Jacque Blas MD PhD Active ALPRAZOLAM 0.25 MG TABS 1/2 tab to 1 tab PO TID PRN ALPRAZOLAM 89820423302 No Longer Active Jacque Blas MD PhD Active FLUOXETINE HCL 10 MG CAPS 2 PO q AM FLUOXETINE HCL 04983964772 No Longer Active Jacque Blas MD PhD Active ALPRAZOLAM 0.25 MG TABS 1/2 tab to 1 tab PO TID PRN ALPRAZOLAM 0.25 MG TABS 116771 ALPRAZOLAM Inactive TRI-SPRINTEC 0.18/0.215/0.25 MG-35 MCG TABS 1 PO q Day TRI-SPRINTEC 0.18/0.215/0.25 MG-35 MCG TABS 839608 NORGESTIM-ETH ESTRAD TRIPHASIC Inactive PNV-OMEGA 28-0.6-0.4-340 MG CAPS 1 pill by mouth daily PNV-OMEGA 28-0.6-0.4-340 MG CAPS PRENAT W/O T-BE-HYDYE-FA-OMEGA Inactive RANITIDINE HCL 150 MG CAPS 1 twice a day RANITIDINE HCL 150 MG CAPS 609825 RANITIDINE HCL Inactive FLINSTONES GUMMIES OMEGA-3 DHA CHEW Take one by mouth daily FLINSTONES GUMMIES OMEGA-3 DHA CHEW PEDIATRIC MULTIPLE VIT-C-FA Inactive SERTRALINE HCL 50 MG TABS 1 daily for depression SERTRALINE HCL 50 MG TABS 480613 SERTRALINE HCL Inactive TYLENOL EXTRA STRENGTH 500 MG TABS 2 @ HS TYLENOL EXTRA STRENGTH 500 MG TABS 811758 ACETAMINOPHEN Inactive TRAMADOL HCL 50 MG TABS 1-2 tablets every 6 hours as needed for pain TRAMADOL HCL 50 MG TABS 658078 TRAMADOL HCL Inactive HYDROCODONE-ACETAMINOPHEN 5-325 MG TABS 1 pill three times daily as needed for pain HYDROCODONE-ACETAMINOPHEN 5-325 MG TABS 531099 HYDROCODONE-ACETAMINOPHEN Inactive CITALOPRAM HYDROBROMIDE 10 MG TABS 1 pill daily, for depression/anxiety 02/09 CITALOPRAM HYDROBROMIDE 10 MG TABS 011357 CITALOPRAM HYDROBROMIDE Inactive ROBAXIN 500 MG TAB 1-2 pills up to four times daily if needed for muscle spasms ROBAXIN 500 MG TAB 308478 METHOCARBAMOL Inactive HYDROCODONE-ACETAMINOPHEN 7.5-325 MG TABS 1 four times a day as needed for pain HYDROCODONE-ACETAMINOPHEN 7.5-325 MG TABS 469592 HYDROCODONE-ACETAMINOPHEN Inactive LAMICTAL 25 MG TABS 1 pill by mouth daily x 2 weeks, then 2 pills daily 07/26 LAMICTAL 25 MG TABS 417819 LAMOTRIGINE Inactive FLAGYL 500 MG ORAL TABS four tabs PO x 1 FLAGYL 500 MG ORAL TABS 467898 METRONIDAZOLE Inactive FLUOXETINE HCL 10 MG CAPS 2 PO q AM FLUOXETINE HCL 10 MG [facility] 115330 FLUOXETINE HCL Inactive METRONIDAZOLE 250 MG TABS 1 TID METRONIDAZOLE 250 MG TABS 623425 METRONIDAZOLE Inactive BACTRIM DS 800-160 MG TAB [...] reduced Diphtheria, and acellular Pertussis Immunization) Adacel [ALB625] tetanus toxoid, reduced diphtheria toxoid, and acellular [...] Value Unit Range Description Lab Report: Chlamydia/GC APTIMA/63659 - Lab chlamydia DNA probe NOT DETECTED NOT DETECTED chlamydia DNA probe NOT DETECTED NOT DETECTED chlamydia DNA probe NOT DETECTED NOT DETECTED Lab Report: Chlamydia/GC APTIMA/66816 - Microbiology Neisseria gonorrhoeae DNA probe NOT DETECTED NOT DETECTED Neisseria gonorrhoeae DNA probe NOT DETECTED NOT DETECTED Neisseria gonorrhoeae DNA probe NOT DETECTED NOT DETECTED Lab Report: Chlamydia/GC APTIMA/04396, Drug Abuse Pnl 10-50/48808 - Lab chlamydia DNA probe NOT DETECTED NOT DETECTED Lab Report: Chlamydia/GC APTIMA/27235, Drug Abuse Pnl 10-50/30925 - Microbiology Neisseria gonorrhoeae DNA probe NOT [...] nitrite, urine, semiquantitative Negative Negative Office Visit: mirena removal - Chemistry human chorionic gonadotropin, urine, qualitative (urine test) Negative Encounters Code Encounter Date Provider Facility CPT-19783 Level 3 Est. Patient 20:19:50 DAIRY ASSOCIATE Jacque Blas MD [facility] CPT-78321 Level 4 Est. Patient 17:32:49 DAIRY ASSOCIATE Jacque Blas MD [facility]-48305 Level 3 Est. Patient 14:38:20 CDT Jacque Blas MD [facility]-54043 Level 4 Est. Patient 20:19:14 CDT Jacque Blas MD [facility]-60318 Level 3 Est. Patient 15:41:32 CDT Jacque Blas MD [facility]-50914 Level 3 Est. Patient 18:02:00 DAIRY ASSOCIATE Jacque Blas MD [facility] CPT-21632 Level 3 Est. Patient 21:41:26 DAIRY ASSOCIATE Jacque Blas MD [facility]-47943 Level 4 Est. Patient 14:43:47 DAIRY ASSOCIATE Jacque Blas MD [facility]-04061 Level 3 Est. Patient 20:16:54 DAIRY ASSOCIATE Jacque Blas MD [facility]-38274 Level 3 Est. Patient 13:31:37 CDT Jacque Blas MD PhD [facility] CPT-35185 Level 3 New Patient 18:16:07 CDT Jacque Blas MD PhD [facility] Procedures Code Procedure Name Date Entry Date Standard Description CPT-51458 Fluzone Quadrivalent Intramuscular Suspension 0.5 ML 16: 31:47 DAIRY ASSOCIATE CPT-06213 Immunization Single Admin 16:31:47 DAIRY ASSOCIATE CPT-96320 Immunization Single Admin 13:26:18 DAIRY ASSOCIATE CPT-40082 Fluzone Intramuscular Injectable 13:26:18 DAIRY ASSOCIATE CPT-91772 Fluzone Thim Free 36mo and older 12:03:33 DAIRY ASSOCIATE CPT-91357 UHCG (floor use only) 11:49:41 DAIRY ASSOCIATE CPT-OV Office Visit 11:49:41 DAIRY ASSOCIATE CPT-74707 LS spine comp w obliq 15:53:02 DAIRY ASSOCIATE CPT-53705 C-Spine Min 4V 15:53:02 DAIRY ASSOCIATE CPT-20380 UHCG (floor use only) 14:15:45 CDT CPT-08823 UHCG (floor use only) 14:09:15 CDT CPT-J7302 Mirena IUD 13:30:58 CDT CPT-68847 Insertion of IUD 13:30:58 CDT CPT-OV Office Visit 13:30:58 CDT CPT-99506 Visit 10:48:09 CDT CPT-95782 Visit 15:34:57 CDT CPT-17747 Visit 15:25:55 CDT CPT-53847 Visit 13:58:45 CDT CPT-66091 Sono OB comp > 14 weeks 16:57:22 CDT CPT-LR Lesion Removal 09:33:27 CDT CPT-40622 Visit 12:50:42 CDT CPT-52787 Visit 18:34:25 CDT CPT-000 Give Appropriate Tetanus Booster 09:16:14 CDT CPT-66378 Administration single or combination vaccine inc oral 11 :36:32 CDT CPT-23573 Tdap 11:36:32 CDT CPT-65333 Visit 09:16:14 CDT CPT-74797 Visit 13:35:24 CDT CPT-08960 Sono OB comp > 14 weeks 11:46:07 CDT CPT-02807 Visit 17:08:15 CDT CPT-43803 Sono OB comp <14 weeks 15:47:19 DAIRY ASSOCIATE CPT-45565 Visit 13:28:37 CDT CPT-05815 Spec Collection and Handling Fee 12:41:37 CDT CPT-88817 Visit 12:41:07 CDT CPT-67423 Visit 18:48:53 CDT CPT-71084 Visit 16:25:17 CDT CPT-35868 Sono OB comp > 14 weeks 11:38:18 CDT CPT-27898 Visit 13:36:17 CDT CPT-98276 Visit 13:48:22 CDT
--- OUTSIDE RECORDS SUMMARY | 2019-01-13 20:39 | XMS REPORT | Clinical Summary ---
Author Author Admin, MARCO ANTONIO Gardiner [facility] Address Unknown Phone Unavailable Allergies, Adverse Reactions, [...] venereal diseases IRREGULAR MENSES 626.4 Resolved Jacque Bals MD PhD Irregular menstrual cycle , NORMAL, [...] weeks, then 2 pills daily 07/26 LAMOTRIGINE 06048957754 Active Jacque Blas MD PhD Active ROBAXIN 500 MG TAB 1-2 pills up to four times daily if needed for muscle spasms METHOCARBAMOL 25274318246 No Longer Active Jacque Blas MD PhD Active CITALOPRAM HYDROBROMIDE 10 MG TABS 1 pill daily, for depression/anxiety 02/09 CITALOPRAM HYDROBROMIDE 29642237838 No Longer Active Jacque Blas MD PhD Active HYDROCODONE-ACETAMINOPHEN 7.5-325 MG TABS 1 four times a day as needed for pain HYDROCODONE-ACETAMINOPHEN 19873524983 Active Jacque Blas MD PhD Active HYDROCODONE-ACETAMINOPHEN 5-325 MG TABS 1 pill three times daily as needed for pain HYDROCODONE-ACETAMINOPHEN 95518898758 No Longer Active Jacque Blas MD PhD Active IBUPROFEN 600 MG TAB 1 pill four times daily, with food IBUPROFEN 43678454436 Active Jacque Blas MD PhD Active TRAMADOL HCL 50 MG TABS 1-2 tablets every 6 hours as needed for pain TRAMADOL HCL 77671820105 No Longer Active Jacque Blas MD PhD Active TYLENOL EXTRA STRENGTH 500 MG TABS 2 @ HS ACETAMINOPHEN 57135395991 No Longer Active Jacque Blas MD PhD Active SERTRALINE HCL 50 MG TABS 1 daily for depression SERTRALINE HCL 86682553627 No Longer Active Jacque Blas MD PhD Active BACTRIM DS 800-160 MG TAB 1 tab by mouth twice daily TRIMETHOPRIM-SULFAMETHOXAZOLE 06538846612 No Longer Active Eva Alejo APRN Active FLINSTONES GUMMIES OMEGA-3 DHA CHEW Take one by mouth daily PEDIATRIC MULTIPLE VIT-C-FA 04681857075 No Longer Active Jacque Blas MD PhD Active RANITIDINE HCL 150 MG CAPS 1 twice a day RANITIDINE HCL 29655696067 No Longer Active Jacqeu Blas MD PhD Active PNV-OMEGA 28-0.6-0.4-340 MG CAPS 1 pill by mouth daily PRENAT W/O N-TR-WCHQQ-FA-OMEGA 43422862426 No Longer Active Jacque Blas MD PhD Active BACTRIM DS 800-160 MG TAB 1 tab by mouth twice daily TRIMETHOPRIM-SULFAMETHOXAZOLE 52912677882 No Longer Active Jacque Blas MD PhD Active METRONIDAZOLE 250 MG TABS 1 TID METRONIDAZOLE 94788818226 No Longer Active Jacque Blas MD PhD Active TRI-SPRINTEC 0.18/0.215/0.25 MG-35 MCG TABS 1 PO q Day NORGESTIM-ETH ESTRAD TRIPHASIC 26348544654 No Longer Active Jacque Blas MD PhD Active ALPRAZOLAM 0.25 MG TABS 1/2 tab to 1 tab PO TID PRN ALPRAZOLAM 11451348977 No Longer Active Jacque Blas MD PhD Active FLUOXETINE HCL 10 MG CAPS 2 PO q AM FLUOXETINE HCL 83716958585 No Longer Active Jacque Blas MD PhD Active ALPRAZOLAM 0.25 MG TABS 1/2 tab to 1 tab PO TID PRN ALPRAZOLAM 0.25 MG TABS 643273 ALPRAZOLAM Inactive TRI-SPRINTEC 0.18/0.215/0.25 MG-35 MCG TABS 1 PO q Day TRI-SPRINTEC 0.18/0.215/0.25 MG-35 MCG TABS 658267 NORGESTIM-ETH ESTRAD TRIPHASIC Inactive PNV-OMEGA 28-0.6-0.4-340 MG CAPS 1 pill by mouth daily PNV-OMEGA 28-0.6-0.4-340 MG CAPS PRENAT W/O E-EU-MIZDM-FA-OMEGA Inactive RANITIDINE HCL 150 MG CAPS 1 twice a day RANITIDINE HCL 150 MG CAPS 245751 RANITIDINE HCL Inactive FLINSTONES GUMMIES OMEGA-3 DHA CHEW Take one by mouth daily FLINSTONES GUMMIES OMEGA-3 DHA CHEW PEDIATRIC MULTIPLE VIT-C-FA Inactive SERTRALINE HCL 50 MG TABS 1 daily for depression SERTRALINE HCL 50 MG TABS 406979 SERTRALINE HCL Inactive TYLENOL EXTRA STRENGTH 500 MG TABS 2 @ HS TYLENOL EXTRA STRENGTH 500 MG TABS 287583 ACETAMINOPHEN Inactive TRAMADOL HCL 50 MG TABS 1-2 tablets every 6 hours as needed for pain TRAMADOL HCL 50 MG TABS 911033 TRAMADOL HCL Inactive HYDROCODONE-ACETAMINOPHEN 5-325 MG TABS 1 pill three times daily as needed for pain HYDROCODONE-ACETAMINOPHEN 5-325 MG TABS 219800 HYDROCODONE-ACETAMINOPHEN Inactive CITALOPRAM HYDROBROMIDE 10 MG TABS 1 pill daily, for depression/anxiety 02/09 CITALOPRAM HYDROBROMIDE 10 MG TABS 415779 CITALOPRAM HYDROBROMIDE Inactive ROBAXIN 500 MG TAB 1-2 pills up to four times daily if needed for muscle spasms ROBAXIN 500 MG TAB 308782 METHOCARBAMOL Inactive FLUOXETINE HCL 10 MG CAPS 2 PO q AM FLUOXETINE HCL 10 MG CAPS 393620 FLUOXETINE HCL Inactive METRONIDAZOLE 250 MG TABS 1 TID METRONIDAZOLE 250 MG TABS 727456 METRONIDAZOLE Inactive BACTRIM DS 800-160 MG TAB [...] reduced Diphtheria, and acellular Pertussis Immunization) Adacel [ALW006] tetanus toxoid, reduced diphtheria toxoid, and acellular [...] Value Unit Range Description Lab Report: Chlamydia/GC APTIMA/54059 - Lab chlamydia DNA probe NOT DETECTED NOT DETECTED chlamydia DNA probe NOT DETECTED NOT DETECTED Lab Report: Chlamydia/GC APTIMA/38299 - Microbiology Neisseria gonorrhoeae DNA probe NOT DETECTED NOT DETECTED Neisseria gonorrhoeae DNA probe NOT DETECTED NOT DETECTED Lab Report: Chlamydia/GC DNA, SDA - Lab chlamydia DNA probe NOT DETECTED NOT DETECTED Lab Report: Chlamydia/GC DNA, SDA - Microbiology Neisseria gonorrhoeae DNA probe NOT DETECTED NOT DETECTED Lab Report: CKI, Erythrocyte Sed Rate - Chemistry creatine kinase, serum 63 U/L 26-192 Office Visit: problem with mirena - Chemistry [...] negative Encounters Code Encounter Date Provider Facility CPT-25208 Level 3 Est. Patient 14:38:20 CDT Jacque Blas MD PhD [facility] CPT-61359 Level 4 Est. Patient 20:19:14 CDT Jacque Blas MD PhD [facility] CPT-49176 Level 3 Est. Patient 15:41:32 CDT Jacque Blas MD PhD [facility] CPT-78056 Level 3 Est. Patient 18:02:00 MEDICAL DETAIL REPRESENTATIVE Jacque Blas MD [facility] CPT-43347 Level 3 Est. Patient 21:41:26 MEDICAL DETAIL REPRESENTATIVE Jacque Blas MD [facility] CPT-00193 Level 4 Est. Patient 14:43:47 MEDICAL DETAIL REPRESENTATIVE Jacque Blas MD [facility] CPT-03667 Level 3 Est. Patient 20:16:54 MEDICAL DETAIL REPRESENTATIVE Jacque Blas MD [facility] CPT-75685 Level 3 Est. Patient 13:31:37 CDT Jacque Blas MD [facility] CPT-92492 Level 3 New Patient 18:16:07 CDT Jacque Blas MD [facility] Procedures Code Procedure Name Date Entry Date Standard Description CPT-19270 LS spine comp w obliq 15:53:02 MEDICAL DETAIL REPRESENTATIVE CPT-27940 C-Spine Min 4V 15:53:02 MEDICAL DETAIL REPRESENTATIVE CPT-19837 UHCG (floor use only) 14:15:45 CDT CPT-53106 UHCG (floor use only) 14:09:15 CDT CPT-J7302 Mirena IUD 13:30:58 CDT CPT-82164 Insertion of IUD 13:30:58 CDT CPT-OV Office Visit 13:30:58 CDT CPT-50807 Visit 10:48:09 CDT CPT-54132 Visit 15:34:57 CDT CPT-39097 Visit 15:25:55 CDT CPT-25835 Visit 13:58:45 CDT CPT-13967 Sono OB comp > 14 weeks 16:57:22 CDT CPT-LR Lesion Removal 09:33:27 CDT CPT-29760 Visit 12:50:42 CDT CPT-43250 Visit 18:34:25 CDT CPT-000 Give Appropriate Tetanus Booster 09:16:14 CDT CPT-08675 Administration single or combination vaccine inc oral 11 :36:32 CDT CPT-76228 Tdap 11:36:32 CDT CPT-81816 Visit 09:16:14 CDT CPT-01148 Visit 13:35:24 CDT CPT-89032 Sono OB comp > 14 weeks 11:46:07 CDT CPT-57408 Visit 17:08:15 CDT CPT-93347 Sono OB comp <14 weeks 15:47:19 MEDICAL DETAIL REPRESENTATIVE CPT-84365 Visit 13:28:37 CDT CPT-57234 Spec Collection and Handling Fee 12:41:37 CDT CPT-63605 Visit 12:41:07 CDT CPT-51265 Visit 18:48:53 CDT CPT-72279 Visit 16:25:17 CDT CPT-31448 Sono OB comp > 14 weeks 11:38:18 CDT CPT-08721 Visit 13:36:17 CDT CPT-22342 Visit 13:48:22 CDT
--- OUTSIDE RECORDS SUMMARY | 2019-01-13 20:39 | XMS REPORT | Clinical Summary ---
Author Author Admin, MARCO ANTONIO [facility] Address Unknown Phone Unavailable Allergies, [...] viral diseases UTI 599.0 Active Eva Alejo RADIOLOGY ORDERLY Urinary tract infection, site not specified Back pain, lumbar 724.2 Active Eva Alejo RADIOLOGY ORDERLY Lumbago , NORMAL ICD-V22.2 Inactive Jacque Blas [...] by mouth q hs, prn CYCLOBENZAPRINE HCL 95742579588 Active Eva Alejo APRN Active MEDROL (DIAN) 4 MG TABS 6 pills x 1 day, then 5 pills x 1 day then 4 pills x 1 day, then 3 pills x 1 day, then 2 pills x 1 day, then 1 pill x 1 day, then stop [facility] 20899042154 No Longer Active Eva Alejo APRN Active SEROQUEL 200 MG ORAL TABS take 1 tab daily QUETIAPINE FUMARATE 70329707742 Active Eva Alejo APRN Active CIPRO 500 MG TAB 1 tablet by mouth twice daily CIPROFLOXACIN HCL 15080850883 Active Rajllina Sukumarl RADIOLOGY ORDERLY Active CYCLOBENZAPRINE HCL 10 MG TABS 1/2 - 1 tab by mouth three times daily if needed for spasms/pain CYCLOBENZAPRINE HCL 82620870266 No Longer Active Eva Alejo APRN Active NICODERM CQ 7 MG/24HR PT24 1 patch daily x 2 weeks - for smoking cessation NICOTINE 81386818531 Active Jacque Blas MD PhD Active NICODERM CQ 14 MG/24HR PT24 1 patch daily x 2 weeks, then decrease to 7's - for smoking cessation NICOTINE 28030973420 Active Jacque Blas MD PhD Active FLAGYL 500 MG ORAL TABS four tabs PO x 1 METRONIDAZOLE 54553531673 No Longer Active Jacque Blas MD PhD Active BACTRIM DS 800-160 MG ORAL TABS one tab PO BID x 3 days SULFAMETHOXAZOLE-TRIMETHOPRIM 88610898404 No Longer Active Chloe Wagner MD Active METHOCARBAMOL 500 MG ORAL TABS 1 pill by mouth up to four times daily if needed for muscle spasm/pain METHOCARBAMOL 35317867451 Active Jacque Blas MD PhD Active LAMICTAL 25 MG TABS 1 pill by mouth daily x 2 weeks, then 2 pills daily 07/26 LAMOTRIGINE 10701083640 No Longer Active Jacque Blas MD PhD Active LATUDA 40 MG TABS Take one by mouth daily LURASIDONE HCL 50000348209 Active Jacque Blas MD PhD Active HYDROCODONE-ACETAMINOPHEN 7.5-325 MG TABS 1 four times a day as needed for pain HYDROCODONE-ACETAMINOPHEN 42842367188 No Longer Active Jacque Blas MD PhD Active ROBAXIN 500 MG TAB 1-2 pills up to four times daily if needed for muscle spasms METHOCARBAMOL 50174694645 No Longer Active Jacque Blsa MD PhD Active CITALOPRAM HYDROBROMIDE 10 MG TABS 1 pill daily, for depression/anxiety 02/09 CITALOPRAM HYDROBROMIDE 82452817671 No Longer Active Jacque Blas MD PhD Active HYDROCODONE-ACETAMINOPHEN 5-325 MG TABS 1 pill three times daily as needed for pain HYDROCODONE-ACETAMINOPHEN 47978676184 No Longer Active Jacque Blas MD PhD Active IBUPROFEN 600 MG TAB 1 pill four times daily, with food IBUPROFEN 84222211705 Active Jacque Blas MD PhD Active TRAMADOL HCL 50 MG TABS 1-2 tablets every 6 hours as needed for pain TRAMADOL HCL 09253309830 No Longer Active Jacque Blas MD PhD Active TYLENOL EXTRA STRENGTH 500 MG TABS 2 @ HS ACETAMINOPHEN 57079061813 No Longer Active Jacque Blas MD PhD Active SERTRALINE HCL 50 MG TABS 1 daily for depression SERTRALINE HCL 37672710192 No Longer Active Jacque Blas MD PhD Active BACTRIM DS 800-160 MG TAB 1 tab by mouth twice daily TRIMETHOPRIM-SULFAMETHOXAZOLE 10339582503 No Longer Active Eva Alejo APRN Active FLINSTON GUMMIES OMEGA-3 DHA CHEW Take one by mouth daily PEDIATRIC MULTIPLE VIT-C-FA 60410965912 No Longer Active Jacque Blas MD PhD Active RANITIDINE HCL 150 MG CAPS 1 twice a day RANITIDINE HCL 57759521705 No Longer Active Jacque Blas MD PhD Active PNV-OMEGA 28-0.6-0.4-340 MG CAPS 1 pill by mouth daily PRENAT W/O D-BL-KSQYF-FA-OMEGA 29847290348 No Longer Active Jacque Blas MD PhD Active BACTRIM DS 800-160 MG TAB 1 tab by mouth twice daily TRIMETHOPRIM-SULFAMETHOXAZOLE 55886399783 No Longer Active Jacque Blas MD PhD Active METRONIDAZOLE 250 MG TABS 1 TID METRONIDAZOLE 69141322101 No Longer Active Jacque Blas MD PhD Active TRI-SPRINTEC 0.18/0.215/0.25 MG-35 MCG TABS 1 PO q Day NORGESTIM-ETH ESTRAD TRIPHASIC 97198133385 No Longer Active Jacque Blas MD PhD Active ALPRAZOLAM 0.25 MG TABS 1/2 tab to 1 tab PO TID PRN ALPRAZOLAM 34639439763 No Longer Active Jacque Blas MD PhD Active FLUOXETINE HCL 10 MG CAPS 2 PO q AM FLUOXETINE HCL 03607737064 No Longer Active Jacque Blas MD PhD Active ALPRAZOLAM 0.25 MG TABS 1/2 tab to 1 tab PO TID PRN ALPRAZOLAM 0.25 MG TABS 938750 ALPRAZOLAM Inactive TRI-SPRINTEC 0.18/0.215/0.25 MG-35 MCG TABS 1 PO q Day TRI-SPRINTEC 0.18/0.215/0.25 MG-35 MCG TABS 802965 NORGESTIM-ETH ESTRAD TRIPHASIC Inactive PNV-OMEGA 28-0.6-0.4-340 MG CAPS 1 pill by mouth daily PNV-OMEGA 28-0.6-0.4-340 MG CAPS PRENAT W/O [id number]-OMEGA Inactive RANITIDINE HCL 150 MG CAPS 1 twice a day RANITIDINE HCL 150 MG CAPS 397859 RANITIDINE HCL Inactive FLINSTONES GUMMIES OMEGA-3 DHA CHEW Take one by mouth daily FLINSTONES GUMMIES OMEGA-3 DHA CHEW PEDIATRIC MULTIPLE VIT-C-FA Inactive SERTRALINE HCL 50 MG TABS 1 daily for depression SERTRALINE HCL 50 MG TABS 328444 SERTRALINE HCL Inactive TYLENOL EXTRA STRENGTH 500 MG TABS 2 @ HS TYLENOL EXTRA STRENGTH 500 MG TABS 199149 ACETAMINOPHEN Inactive TRAMADOL HCL 50 MG TABS 1-2 tablets every 6 hours as needed for pain TRAMADOL HCL 50 MG TABS 507138 TRAMADOL HCL Inactive HYDROCODONE-ACETAMINOPHEN 5-325 MG TABS 1 pill three times daily as needed for pain HYDROCODONE-ACETAMINOPHEN 5-325 MG TABS 105263 HYDROCODONE-ACETAMINOPHEN Inactive CITALOPRAM HYDROBROMIDE 10 MG TABS 1 pill daily, for depression/anxiety 02/09 CITALOPRAM HYDROBROMIDE 10 MG TABS 584559 CITALOPRAM HYDROBROMIDE Inactive ROBAXIN 500 MG TAB 1-2 pills up to four times daily if needed for muscle spasms ROBAXIN 500 MG TAB 403741 METHOCARBAMOL Inactive HYDROCODONE-ACETAMINOPHEN 7.5-325 MG TABS 1 four times a day as needed for pain HYDROCODONE-ACETAMINOPHEN 7.5-325 MG TABS 604115 HYDROCODONE-ACETAMINOPHEN Inactive LAMICTAL 25 MG TABS 1 pill by mouth daily x 2 weeks, then 2 pills daily 07/26 LAMICTAL 25 MG TABS 977119 LAMOTRIGINE Inactive FLAGYL 500 MG ORAL TABS four tabs PO x 1 FLAGYL 500 MG ORAL TABS 065420 METRONIDAZOLE Inactive CYCLOBENZAPRINE HCL 10 MG TABS 1/2 - 1 tab by mouth three times daily if needed for spasms/pain CYCLOBENZAPRINE HCL 10 MG TABS 394818 CYCLOBENZAPRINE HCL Inactive FLUOXETINE HCL 10 MG CAPS 2 PO q AM FLUOXETINE HCL 10 MG CAPS 206925 FLUOXETINE HCL Inactive METRONIDAZOLE 250 MG TABS 1 TID METRONIDAZOLE 250 MG TABS 143156 METRONIDAZOLE Inactive BACTRIM DS 800-160 MG TAB [...] reduced Diphtheria, and acellular Pertussis Immunization) Adacel [EQU770] tetanus toxoid, reduced diphtheria toxoid, and acellular [...] Value Unit Range Description Lab Report: Chlamydia/GC APTIMA/59949 - Lab chlamydia DNA probe NOT DETECTED NOT DETECTED chlamydia DNA probe NOT DETECTED NOT DETECTED chlamydia DNA probe NOT DETECTED NOT DETECTED chlamydia DNA probe NOT DETECTED NOT DETECTED Lab Report: Chlamydia/GC APTIMA/68465 - Microbiology Neisseria gonorrhoeae DNA probe NOT DETECTED NOT DETECTED Neisseria gonorrhoeae DNA probe NOT DETECTED NOT DETECTED Neisseria gonorrhoeae DNA probe NOT DETECTED NOT DETECTED Neisseria gonorrhoeae DNA probe NOT DETECTED NOT DETECTED Lab Report: Chlamydia/GC APTIMA/64639, Drug Abuse Pnl 10-50/79835 - Lab chlamydia DNA probe NOT DETECTED NOT DETECTED Lab Report: Chlamydia/GC APTIMA/69267, Drug Abuse Pnl 10-50/15781 - Microbiology Neisseria gonorrhoeae DNA probe NOT [...] Negative Encounters Code Encounter Date Provider Facility CPT-08541 Level 3 Est. Patient 20:19:50 LEAD PRESSER Jacque Blas MD [facility]-00873 Level 4 Est. Patient 17:32:49 LEAD PRESSER Jacque Blas MD [facility] CPT-52797 Level 3 Est. Patient 14:38:20 CDT Jacque Blas MD [facility]-71998 Level 4 Est. Patient 20:19:14 CDT Jacque Blas MD [facility]-00016 Level 3 Est. Patient 15:41:32 CDT Jacque Blas MD [facility]22032 Level 3 Est. Patient 18:02:00 LEAD PRESSER Jacque Blas MD [facility]-78822 Level 3 Est. Patient 21:41:26 LEAD PRESSER Jacque Blas MD PhD [facility] CPT-45351 Level 4 Est. Patient 14:43:47 LEAD PRESSER Jacque Blas MD [facility] CPT-83464 Level 3 Est. Patient 20:16:54 LEAD PRESSER Jacque Blas MD [facility] CPT-62024 Level 3 Est. Patient 13:31:37 CDT Jacque Blas MD [facility] CPT-96911 Level 3 New Patient 18:16:07 CDT Jacque Blas MD [facility] Procedures Code Procedure Name Date Entry Date Standard Description CPT-05698 Fluzone Quadrivalent Intramuscular Suspension 0.5 ML 16: 31:47 LEAD PRESSER CPT-22957 Immunization Single Admin 16:31:47 LEAD PRESSER CPT-81305 Immunization Single Admin 13:26:18 LEAD PRESSER CPT-52463 Fluzone Intramuscular Injectable 13:26:18 LEAD PRESSER CPT-51952 Fluzone Thim Free 36mo and older 12:03:33 LEAD PRESSER CPT-45040 UHCG (floor use only) 11:49:41 LEAD PRESSER CPT-OV Office Visit 11:49:41 LEAD PRESSER CPT-16178 LS spine comp w obliq 15:53:02 LEAD PRESSER CPT-56482 C-Spine Min 4V 15:53:02 LEAD PRESSER CPT-67952 UHCG (floor use only) 14:15:45 CDT CPT-14249 UHCG (floor use only) 14:09:15 CDT CPT-J7302 Mirena IUD 13:30:58 CDT CPT-62822 Insertion of IUD 13:30:58 CDT CPT-OV Office Visit 13:30:58 CDT CPT-83838 Visit 10:48:09 CDT CPT-18335 Visit 15:34:57 CDT CPT-00246 Visit 15:25:55 CDT CPT-71910 Visit 13:58:45 CDT CPT-26945 Sono OB comp > 14 weeks 16:57:22 CDT CPT-LR Lesion Removal 09:33:27 CDT CPT-68939 Visit 12:50:42 CDT CPT-17710 Visit 18:34:25 CDT CPT-000 Give Appropriate Tetanus Booster 09:16:14 CDT CPT-60416 Administration single or combination vaccine inc oral 11 :36:32 CDT CPT-68357 Tdap 11:36:32 CDT CPT-19037 Visit 09:16:14 CDT CPT-91339 Visit 13:35:24 CDT CPT-79755 Sono OB comp > 14 weeks 11:46:07 CDT CPT-36041 Visit 17:08:15 CDT CPT-66776 Sono OB comp <14 weeks 15:47:19 LEAD PRESSER CPT-91343 Visit 13:28:37 CDT CPT-10554 Spec Collection and Handling Fee 12:41:37 CDT CPT-88243 Visit 12:41:07 CDT CPT-72822 Visit 18:48:53 CDT CPT-83272 Visit 16:25:17 CDT CPT-50797 Sono OB comp > 14 weeks 11:38:18 CDT CPT-29072 Visit 13:36:17 CDT CPT-71908 Visit 13:48:22 CDT
--- OUTSIDE RECORDS SUMMARY | 2019-01-13 20:40 | XMS REPORT | Clinical Summary ---
Author Author Admin, MARCO ANTONIO [facility] Address Unknown Phone Unavailable Allergies, Adverse [...] SIZE DATE DISCREPANCY ANTPRTM COND/COMPL 649.63 Resolved Jaqcue Blas MD PhD Uterine size date discrepancy, [...] Instructions Start Date Stop Date Generic Name [facility] Status Provider Patient Instruction CYCLOBENZAPRINE HCL 10 MG TABS 1/2 - 1 tab by mouth three times daily if needed for spasms/pain CYCLOBENZAPRINE HCL 58676124773 Active Jacque Blas MD PhD Active LAMICTAL 25 MG TABS 1 pill by mouth daily x 2 weeks, then 2 pills daily 07/26 LAMOTRIGINE 53813080065 No Longer Active Jacque Blas MD PhD Active LATUDA 40 MG TABS Take one by mouth daily LURASIDONE HCL 05428506433 Active Jacque Blas MD PhD Active HYDROCODONE-ACETAMINOPHEN 7.5-325 MG TABS 1 four times a day as needed for pain HYDROCODONE-ACETAMINOPHEN 53999679291 No Longer Active Jacque Blas MD PhD Active ROBAXIN 500 MG TAB 1-2 pills up to four times daily if needed for muscle spasms METHOCARBAMOL 24729713995 No Longer Active Jacque Blas MD PhD Active CITALOPRAM HYDROBROMIDE 10 MG TABS 1 pill daily, for depression/anxiety 02/09 CITALOPRAM HYDROBROMIDE 58710403613 No Longer Active Jacque Blas MD PhD Active HYDROCODONE-ACETAMINOPHEN 5-325 MG TABS 1 pill three times daily as needed for pain HYDROCODONE-ACETAMINOPHEN 95324968925 No Longer Active Jacque Blas MD PhD Active IBUPROFEN 600 MG TAB 1 pill four times daily, with food IBUPROFEN 07834186001 Active Jacque Blas MD PhD Active TRAMADOL HCL 50 MG TABS 1-2 tablets every 6 hours as needed for pain TRAMADOL HCL 02397096516 No Longer Active Jacque Blas MD PhD Active TYLENOL EXTRA STRENGTH 500 MG TABS 2 @ HS ACETAMINOPHEN 86248020665 No Longer Active Jacque Blas MD PhD Active SERTRALINE HCL 50 MG TABS 1 daily for depression SERTRALINE HCL 99291486579 No Longer Active Jacque Blas MD PhD Active BACTRIM DS 800-160 MG TAB 1 tab by mouth twice daily TRIMETHOPRIM-SULFAMETHOXAZOLE 16082404578 No Longer Active Eva Alejo AUTO ENGINE MECHANIC Active FLINSTONES GUMMIES OMEGA-3 DHA CHEW Take one by mouth daily PEDIATRIC MULTIPLE VIT-C-FA 27324823844 No Longer Active Jacque Blas MD PhD Active RANITIDINE HCL 150 MG CAPS 1 twice a day RANITIDINE HCL 79862404423 No Longer Active Jacque Blas MD PhD Active PNV-OMEGA 28-0.6-0.4-340 MG CAPS 1 pill by mouth daily PRENAT W/O L-DK-KVGVS-FA-OMEGA 30480214150 No Longer Active Jacque Blas MD PhD Active BACTRIM DS 800-160 MG TAB 1 tab by mouth twice daily TRIMETHOPRIM-SULFAMETHOXAZOLE 88443509771 No Longer Active Jacque Blas MD PhD Active METRONIDAZOLE 250 MG TABS 1 TID METRONIDAZOLE 40177744605 No Longer Active Jacque Blas MD PhD Active TRI-SPRINTEC 0.18/0.215/0.25 MG-35 MCG TABS 1 PO q Day NORGESTIM-ETH ESTRAD TRIPHASIC 88468922383 No Longer Active Jacque Blas MD PhD Active ALPRAZOLAM 0.25 MG TABS 1/2 tab to 1 tab PO TID PRN ALPRAZOLAM 50383014220 No Longer Active Jacque Blas MD PhD Active FLUOXETINE HCL 10 MG CAPS 2 PO q AM FLUOXETINE HCL 43712794332 No Longer Active Jacque Blas MD PhD Active ALPRAZOLAM 0.25 MG TABS 1/2 tab to 1 tab PO TID PRN ALPRAZOLAM 0.25 MG TABS 136244 ALPRAZOLAM Inactive TRI-SPRINTEC 0.18/0.215/0.25 MG-35 MCG TABS 1 PO q Day TRI-SPRINTEC 0.18/0.215/0.25 MG-35 MCG TABS 030066 NORGESTIM-ETH ESTRAD TRIPHASIC Inactive PNV-OMEGA 28-0.6-0.4-340 MG CAPS 1 pill by mouth daily PNV-OMEGA 28-0.6-0.4-340 MG CAPS PRENAT W/O V-[id number]-OMEGA Inactive RANITIDINE HCL 150 MG CAPS 1 twice a day RANITIDINE HCL 150 MG CAPS 377921 RANITIDINE HCL Inactive FLINSTONES GUMMIES OMEGA-3 DHA CHEW Take one by mouth daily FLINSTONES GUMMIES OMEGA-3 DHA CHEW PEDIATRIC MULTIPLE VIT-C-FA Inactive SERTRALINE HCL 50 MG TABS 1 daily for depression SERTRALINE HCL 50 MG TABS 728178 SERTRALINE HCL Inactive TYLENOL EXTRA STRENGTH 500 MG TABS 2 @ HS TYLENOL EXTRA STRENGTH 500 MG TABS 854909 ACETAMINOPHEN Inactive TRAMADOL HCL 50 MG TABS 1-2 tablets every 6 hours as needed for pain TRAMADOL HCL 50 MG TABS 038307 TRAMADOL HCL Inactive HYDROCODONE-ACETAMINOPHEN 5-325 MG TABS 1 pill three times daily as needed for pain HYDROCODONE-ACETAMINOPHEN 5-325 MG TABS 208011 HYDROCODONE-ACETAMINOPHEN Inactive CITALOPRAM HYDROBROMIDE 10 MG TABS 1 pill daily, for depression/anxiety 02/09 CITALOPRAM HYDROBROMIDE 10 MG TABS 657241 CITALOPRAM HYDROBROMIDE Inactive ROBAXIN 500 MG TAB 1-2 pills up to four times daily if needed for muscle spasms ROBAXIN 500 MG TAB 242842 METHOCARBAMOL Inactive HYDROCODONE-ACETAMINOPHEN 7.5-325 MG TABS 1 four times a day as needed for pain HYDROCODONE-ACETAMINOPHEN 7.5-325 MG TABS 473136 HYDROCODONE-ACETAMINOPHEN Inactive LAMICTAL 25 MG TABS 1 pill by mouth daily x 2 weeks, then 2 pills daily 07/26 LAMICTAL 25 MG TABS 491185 LAMOTRIGINE Inactive FLUOXETINE HCL 10 MG CAPS 2 PO q AM FLUOXETINE HCL 10 MG CAPS 379342 FLUOXETINE HCL Inactive METRONIDAZOLE 250 MG TABS 1 TID METRONIDAZOLE 250 MG TABS 720745 METRONIDAZOLE Inactive BACTRIM DS 800-160 MG TAB [...] reduced Diphtheria, and acellular Pertussis Immunization) Adacel [MBT377] tetanus toxoid, reduced diphtheria toxoid, and acellular [...] Value Unit Range Description Lab Report: Chlamydia/GC APTIMA/78946 - Lab chlamydia DNA probe NOT DETECTED NOT DETECTED chlamydia DNA probe NOT DETECTED NOT DETECTED Lab Report: Chlamydia/GC APTIMA/72247 - Microbiology Neisseria gonorrhoeae DNA probe NOT DETECTED NOT DETECTED Neisseria gonorrhoeae DNA probe NOT DETECTED NOT DETECTED Lab Report: CKI, Erythrocyte Sed Rate - Chemistry creatine kinase, serum 63 U/L 26-192 Encounters Code Encounter Date Provider Facility [facility]-16106 Level 4 Est. Patient 17:32:49 VIDEOGRAPHER Jacque Blas MD [facility]-83573 Level 3 Est. Patient 14:38:20 CDT Jacque Blas MD [facility]-58986 Level 4 Est. Patient 20:19:14 CDT Jacque Blas MD [facility]-17044 Level 3 Est. Patient 15:41:32 CDT Jacque Blas MD [facility]-41811 Level 3 Est. Patient 18:02:00 VIDEOGRAPHER Jacque Blas MD [facility]-28380 Level 3 Est. Patient 21:41:26 VIDEOGRAPHER Jacque Blas MD [facility]-51909 Level 4 Est. Patient 14:43:47 VIDEOGRAPHER Jacque Blas MD [facility] [place]39 Level 3 Est. Patient 20:16:54 VIDEOGRAPHER Jacque Blas MD [facility]-55692 Level 3 Est. Patient 13:31:37 CDT Jacque Blas MD PhD [facility] CPT-22964 Level 3 New Patient 18:16:07 CDT Jacque Blas MD PhD [facility] Procedures Code Procedure Name Date Entry Date Standard Description CPT-23909 LS spine comp w obliq 15:53:02 VIDEOGRAPHER CPT-30400 C-Spine Min 4V 15:53:02 VIDEOGRAPHER CPT-81304 UHCG (floor use only) 14:15:45 CDT CPT-98383 UHCG (floor use only) 14:09:15 CDT CPT-J7302 Mirena IUD 13:30:58 CDT CPT-13389 Insertion of IUD 13:30:58 CDT CPT-OV Office Visit 13:30:58 CDT CPT-09740 Visit 10:48:09 CDT CPT-25454 Visit 15:34:57 CDT CPT-67797 Visit 15:25:55 CDT CPT-72702 Visit 13:58:45 CDT CPT-40268 Sono OB comp > 14 weeks 16:57:22 CDT CPT-LR Lesion Removal 09:33:27 CDT CPT-64347 Visit 12:50:42 CDT CPT-39127 Visit 18:34:25 CDT CPT-000 Give Appropriate Tetanus Booster 09:16:14 CDT CPT-75936 Administration single or combination vaccine inc oral 11 :36:32 CDT CPT-99840 Tdap 11:36:32 CDT CPT-50074 Visit 09:16:14 CDT CPT-65771 Visit 13:35:24 CDT CPT-33463 Sono OB comp > 14 weeks 11:46:07 CDT CPT-45794 Visit 17:08:15 CDT CPT-53357 Sono OB comp <14 weeks 15:47:19 VIDEOGRAPHER CPT-74367 Visit 13:28:37 CDT CPT-12568 Spec Collection and Handling Fee 12:41:37 CDT CPT-96761 Visit 12:41:07 CDT CPT-57829 Visit 18:48:53 CDT CPT-42522 Visit 16:25:17 CDT CPT-95049 Sono OB comp > 14 weeks 11:38:18 CDT CPT-83636 Visit 13:36:17 CDT CPT-07044 Visit 13:48:22 CDT
--- OUTSIDE RECORDS SUMMARY | 2019-01-13 20:40 | XMS REPORT ---
Author Author [facility] Organization [facility] Address [address], [place] [address] Phone [phone] Care Team Providers Care Pullman Car Repairer Name Role Phone RAMSES MENDOZA, EDDY PP [phone] Summary purpose TRANSITION OF CARE AUTO GENERATION [...] Code Type Description Date Performed Performing Physician 09497 CPT-4 EMERGENCY DEPT VISIT 09-04-2014 EDDY PEARCE 01025 CPT-4 EMERGENCY DEPT VISIT 09-04-2014 EDDY PEARCE Functional status No functional or cognitive status observations are available for this visit. Vital signs Type Value Date Respiration Rate 20breaths per minute 21-54-180652:55 Pulse 103beats per minute 18-63-756731:55 Oxygen Saturation 100% 94-93-920413:55 BP Systolic 118mmHg 51-67-273351:55 BP Diastolic 95mmHg 90-62-119123:55 Temperature 97.9F 34-11-549856:55 Social history No Social History or smoking status observations were recorded for this visit. ( Unknown if ever smoked.) Treatment Plan No treatment plan text is available for this visit. Hospital discharge instructions Dismissal Condition good Disposition on DC home DC Inst/Educ Give yes Med/Side Effects Rev yes
--- OUTSIDE RECORDS SUMMARY | 2019-01-13 20:40 | XMS REPORT ---
Author Author [facility] Organization [facility] Address [address], [place] [address] Phone [phone] Care Team Providers Care It Field Technician Name Role Phone RAMSES MENDOZA, EDDY PP [phone] Summary purpose TRANSITION OF CARE AUTO GENERATION [...] tests and/or laboratory data RESULTS Routine Urinalysis :45:00 Result Normal Range Units Color YELLOW Clarity Clear Specific [place] 1.025 1.003-1.035 pH 7.0 4.5-8.0 Glucose NEGATIVE Bilirubin NEGATIVE Ketones NEGATIVE Protein NEGATIVE Urobilinogen 0.2 0-0.2 E.U./dL Nitrites NEGATIVE Blood NEGATIVE Leukocytes NEGATIVE WBCs No WBC's Seen RBCs 0-5 Squamous Epithelial 1+ Bacteria Rare Amount Body Fluid :45:00 Result Normal Range Units pH 7.0 4.5-8.0 History of procedures No procedures recorded for this patient visit. Functional status No functional or cognitive status observations are available for this visit. Vital signs Type Value Date Respiration Rate 20breaths per minute :00 Pulse 96beats per minute : Oxygen Saturation 100% :00 BP Systolic 140mmHg [...]
--- OUTSIDE RECORDS SUMMARY | 2019-01-13 20:41 | XMS REPORT | Clinical Summary ---
[...] daily if needed for muscle spasms METHOCARBAMOL [id number] No Longer Active Jacque Blas MD PhD Active CITALOPRAM HYDROBROMIDE 10 MG TABS 1 pill daily, for depression/anxiety 02/09 CITALOPRAM HYDROBROMIDE [id number] No Longer Active Jacque Blas MD PhD Active HYDROCODONE-ACETAMINOPHEN 7.5-325 MG TABS 1 four times a day as needed for pain HYDROCODONE-ACETAMINOPHEN 00623919849 Active Bruce Vicente MD Active HYDROCODONE-ACETAMINOPHEN 5-325 MG TABS 1 pill three times daily as needed for pain HYDROCODONE-ACETAMINOPHEN 79829507222 No Longer Active Jacque Blas MD PhD Active IBUPROFEN 600 MG TAB 1 pill four times daily, with food IBUPROFEN 24318091101 Active Jacque Blas MD PhD Active TRAMADOL HCL 50 MG TABS 1-2 tablets every 6 hours as needed for pain TRAMADOL HCL 77799004038 No Longer Active Jacque Blas MD PhD Active TYLENOL EXTRA STRENGTH 500 MG TABS 2 @ HS ACETAMINOPHEN 70121989382 No Longer Active Jacque Blas MD PhD Active SERTRALINE HCL 50 MG TABS 1 daily for depression SERTRALINE HCL 08528698147 No Longer Active Jacque Blas MD PhD Active BACTRIM DS 800-160 MG TAB 1 tab by mouth twice daily TRIMETHOPRIM-SULFAMETHOXAZOLE 65882808554 No Longer Active Eva Alejo APRN Active FLINSTONES GUMMIES OMEGA-3 DHA CHEW Take one by mouth daily PEDIATRIC MULTIPLE VIT-C-FA 76535306736 No Longer Active Jacque Blas MD PhD Active RANITIDINE HCL 150 MG CAPS 1 twice a day RANITIDINE HCL 92923735481 No Longer Active Jacque Blas MD PhD Active PNV-OMEGA 28-0.6-0.4-340 MG CAPS 1 pill by mouth daily PRENAT W/O G-XH-ENAXT-FA-OMEGA 74192434821 No Longer Active Jacque Blas MD PhD Active BACTRIM DS 800-160 MG TAB 1 tab by mouth twice daily TRIMETHOPRIM-SULFAMETHOXAZOLE 96346596771 No Longer Active Jacque Blas MD PhD Active METRONIDAZOLE 250 MG TABS 1 TID METRONIDAZOLE 79634768232 No Longer Active Jacque Blas MD PhD Active TRI-SPRINTEC 0.18/0.215/0.25 MG-35 MCG TABS 1 PO q Day NORGESTIM-ETH ESTRAD TRIPHASIC 52742931702 No Longer Active Jacque Blas MD PhD Active ALPRAZOLAM 0.25 MG TABS 1/2 tab to 1 tab PO TID PRN ALPRAZOLAM 52128885508 No Longer Active Jacque Blas MD PhD Active FLUOXETINE HCL 10 MG CAPS 2 PO q AM FLUOXETINE HCL 61071283781 No Longer Active Jacque Blas MD PhD Active ALPRAZOLAM 0.25 MG TABS 1/2 tab to 1 tab PO TID PRN ALPRAZOLAM 0.25 MG TABS 840108 ALPRAZOLAM Inactive TRI-SPRINTEC 0.18/0.215/0.25 MG-35 MCG TABS 1 PO q Day TRI-SPRINTEC 0.18/0.215/0.25 MG-35 MCG TABS 882998 NORGESTIM-ETH ESTRAD TRIPHASIC Inactive PNV-OMEGA 28-0.6-0.4-340 MG CAPS 1 pill by mouth daily PNV-OMEGA 28-0.6-0.4-340 MG CAPS PRENAT W/O S-FX-UDOPB-FA-OMEGA Inactive RANITIDINE HCL 150 MG CAPS 1 twice a day RANITIDINE HCL 150 MG CAPS 374447 RANITIDINE HCL Inactive FLINSTONES GUMMIES OMEGA-3 DHA CHEW Take one by mouth daily FLINSTONES GUMMIES OMEGA-3 DHA CHEW PEDIATRIC MULTIPLE VIT-C-FA Inactive SERTRALINE HCL 50 MG TABS 1 daily for depression SERTRALINE HCL 50 MG TABS 965147 SERTRALINE HCL Inactive TYLENOL EXTRA STRENGTH 500 MG TABS 2 @ HS TYLENOL EXTRA STRENGTH 500 MG TABS 145049 ACETAMINOPHEN Inactive TRAMADOL HCL 50 MG TABS 1-2 tablets every 6 hours as needed for pain TRAMADOL HCL 50 MG TABS 866382 TRAMADOL HCL Inactive HYDROCODONE-ACETAMINOPHEN 5-325 MG TABS 1 pill three times daily as needed for pain HYDROCODONE-ACETAMINOPHEN 5-325 MG TABS 340346 HYDROCODONE-ACETAMINOPHEN Inactive CITALOPRAM HYDROBROMIDE 10 MG TABS 1 pill daily, for depression/anxiety 02/09 CITALOPRAM HYDROBROMIDE 10 MG TABS 105289 CITALOPRAM HYDROBROMIDE Inactive ROBAXIN 500 MG TAB 1-2 pills up to four times daily if needed for muscle spasms ROBAXIN 500 MG TAB 617189 METHOCARBAMOL Inactive FLUOXETINE HCL 10 MG CAPS 2 PO q AM FLUOXETINE HCL 10 MG CAPS 475846 FLUOXETINE HCL Inactive METRONIDAZOLE 250 MG TABS 1 TID METRONIDAZOLE 250 MG TABS 812888 METRONIDAZOLE Inactive BACTRIM DS 800-160 MG TAB [...] reduced Diphtheria, and acellular Pertussis Immunization) Adacel [[id number]] tetanus toxoid, reduced diphtheria toxoid, and acellular [...] pressure, diastolic - 8462-4 86 mm[Hg] BP esllers blood pressure, systolic - 8480-6 128 mm[Hg] BP sys height E&M - 8302-2 35 [in_us] Bdy height pulse rate E&M - 8867-4 112 /min Heart rate temperature E&M 98.1 [degF] Body temperature weight E&M - 3141-9 230 [lb_av] Weight Measured Diagnostic Results Date Name Value Unit Range Description Lab Report: Chlamydia/GC APTIMA/84833 - Lab chlamydia DNA probe NOT DETECTED NOT DETECTED chlamydia DNA probe NOT DETECTED NOT DETECTED Lab Report: Chlamydia/GC APTIMA/44577 - Microbiology Neisseria gonorrhoeae DNA probe NOT [...] negative Encounters Code Encounter Date Provider Facility CPT-13831 Level 4 Est. Patient 20:19:14 CDT Jacque Blas MD [facility] CPT-65753 Level 3 Est. Patient 15:41:32 CDT Jacque Blas MD [facility] CPT-31674 Level 3 Est. Patient 18:02:[address] DEPUTY CLERK Jacque Blas MD PhD [facility] CPT-39046 Level 3 Est. Patient 21:41:[address] DEPUTY CLERK Jacque Blas MD PhD [facility] CPT-64156 Level 4 Est. Patient 14:43:[address] DEPUTY CLERK Jacque Blas MD [facility]-49101 Level 3 Est. Patient 20:16:[address] DEPUTY CLERK Jacque Blas MD PhD [facility] CPT-90783 Level 3 Est. Patient 13:31:37 CDT Jacque Blas MD [facility]-70256 Level 3 New Patient 18:16:07 CDT Jacque Blas MD PhD [facility] Procedures Code Procedure Name Date Entry Date Standard Description CPT-98524 LS spine comp w obliq 15:53:[address] DEPUTY CLERK CPT-16589 C-Spine Min 4V 15:53:[address] DEPUTY CLERK CPT-74102 UHCG (floor use only) 14:15:45 CDT CPT-17017 UHCG (floor use only) 14:09:15 CDT CPT-J7302 Mirena IUD 13:30:58 CDT CPT-05269 Insertion of IUD 13:30:58 CDT CPT-OV Office Visit 13:30:58 CDT CPT-23679 Visit 10:48:09 CDT CPT-08339 Visit 15:34:57 CDT CPT-23627 Visit 15:25:55 CDT CPT-23746 Visit 13:58:45 CDT CPT-28672 Sono OB comp > 14 weeks 16:57:22 CDT CPT-LR Lesion Removal 09:33:27 CDT CPT-82546 Visit 12:50:42 CDT CPT-63986 Visit 18:34:25 CDT CPT-000 Give Appropriate Tetanus Booster 09:16:14 CDT CPT-81016 Administration single or combination vaccine inc oral 11 :36:32 CDT CPT-21235 Tdap 11:36:32 CDT CPT-40878 Visit 09:16:14 CDT CPT-19411 Visit 13:35:24 CDT CPT-45554 Sono OB comp > 14 weeks 11:46:07 CDT CPT-37548 Visit 17:08:15 CDT CPT-74333 Sono OB comp <14 weeks 15:47:[address] DEPUTY CLERK CPT-98008 Visit 13:28:37 CDT CPT-14554 Spec Collection and Handling Fee 12:41:37 CDT CPT-49686 Visit 12:41:07 CDT CPT-13794 Visit 18:48:53 CDT CPT-40578 Visit 16:25:17 CDT CPT-73918 Sono OB comp > 14 weeks 11:38:18 CDT CPT-62103 Visit 13:36:17 CDT CPT-45194 Visit 13:48:22 CDT
--- OUTSIDE RECORDS SUMMARY | 2019-01-13 20:41 | XMS REPORT | Clinical Summary ---
Author Author Admin, MARCO ANTONIO Gardiner [facility] Address Unknown Phone Allergies, Adverse Reactions, Alerts Allergy Name Reaction Description Start Date Severity Status Provider No Known Allergies Cecelia Russell [facility] Conditions or Problems Problem Name Problem Code Onset Date Status Entry Date Provider Comment Standard Description Annotate FH BREAST CANCER V16.3 Active Jacque Blas MD PhD Family history of malignant neoplasm of breast , NORMAL V22.2 Resolved Jacque Blas MD PhD state, incidental EXCESS GROWTH AFFECT MGMT MOTH ANTPRTM 656.63 Resolved aJcque Blas MD PhD Excessive growth affecting management [...] pill daily, for depression/anxiety 02/09 CITALOPRAM HYDROBROMIDE 20650539666 Active Jacque Blas MD PhD Active HYDROCODONE-ACETAMINOPHEN 7.5-325 MG TABS 1 four times a day as needed for pain HYDROCODONE-ACETAMINOPHEN 96215148697 Active Bruce Vicente MD Active HYDROCODONE-ACETAMINOPHEN 5-325 MG TABS 1 pill three times daily as needed for pain HYDROCODONE-ACETAMINOPHEN 52080619488 No Longer Active Jacque Blas MD PhD Active ROBAXIN 500 MG TAB 1-2 pills up to four times daily if needed for muscle spasms METHOCARBAMOL 75218503814 Active Jacque Blas MD PhD Active IBUPROFEN 600 MG TAB 1 pill four times daily, with food IBUPROFEN 52795478334 Active Jacque Blas MD PhD Active TRAMADOL HCL 50 MG TABS 1-2 tablets every 6 hours as needed for pain TRAMADOL HCL 23983296577 No Longer Active Jacque Blas MD PhD Active TYLENOL EXTRA STRENGTH 500 MG TABS 2 @ HS ACETAMINOPHEN 23694269981 No Longer Active Jacque Blas MD PhD Active SERTRALINE HCL 50 MG TABS 1 daily for depression SERTRALINE HCL 49832399520 No Longer Active Jacque Blas MD PhD Active BACTRIM DS 800-160 MG TAB 1 tab by mouth twice daily TRIMETHOPRIM-SULFAMETHOXAZOLE 28531545526 No Longer Active Eva Alejo APRN Active FLINSTONES GUMMIES OMEGA-3 DHA CHEW Take one by mouth daily PEDIATRIC MULTIPLE VIT-C-FA 27825225057 No Longer Active Jacque Blas MD PhD Active RANITIDINE HCL 150 MG CAPS 1 twice a day RANITIDINE HCL 69214532259 No Longer Active Jacque Blas MD PhD Active PNV-OMEGA 28-0.6-0.4-340 MG CAPS 1 pill by mouth daily PRENAT W/O J-GL-IMFCS-FA-OMEGA 71392516229 No Longer Active Jacque Blas MD PhD Active BACTRIM DS 800-160 MG TAB 1 tab by mouth twice daily TRIMETHOPRIM-SULFAMETHOXAZOLE 25279421700 No Longer Active Jacque Blas MD PhD Active METRONIDAZOLE 250 MG TABS 1 TID METRONIDAZOLE 70020372461 No Longer Active Jacque Blas MD PhD Active TRI-SPRINTEC 0.18/0.215/0.25 MG-35 MCG TABS 1 PO q Day NORGESTIM-ETH ESTRAD TRIPHASIC 78661399706 No Longer Active Jacque Blas MD PhD Active ALPRAZOLAM 0.25 MG TABS 1/2 tab to 1 tab PO TID PRN ALPRAZOLAM 71883176119 No Longer Active Jacque Blas MD PhD Active FLUOXETINE HCL 10 MG CAPS 2 PO q AM FLUOXETINE HCL 18915792875 No Longer Active Jacque Blas MD PhD Active ALPRAZOLAM 0.25 MG TABS 1/2 tab to 1 tab PO TID PRN ALPRAZOLAM 0.25 MG TABS 864901 ALPRAZOLAM Inactive TRI-SPRINTEC 0.18/0.215/0.25 MG-35 MCG TABS 1 PO q Day TRI-SPRINTEC 0.18/0.215/0.25 MG-35 MCG TABS 675220 NORGESTIM-ETH ESTRAD TRIPHASIC Inactive PNV-OMEGA 28-0.6-0.4-340 MG CAPS 1 pill by mouth daily PNV-OMEGA 28-0.6-0.4-340 MG CAPS PRENAT W/O G-SV-CCPER-FA-OMEGA Inactive RANITIDINE HCL 150 MG CAPS 1 twice a day RANITIDINE HCL 150 MG CAPS 205107 RANITIDINE HCL Inactive FLINSTONES GUMMIES OMEGA-3 DHA CHEW Take one by mouth daily FLINSTONES GUMMIES OMEGA-3 DHA CHEW PEDIATRIC MULTIPLE VIT-C-FA Inactive SERTRALINE HCL 50 MG TABS 1 daily for depression SERTRALINE HCL 50 MG TABS 840170 SERTRALINE HCL Inactive TYLENOL EXTRA STRENGTH 500 MG TABS 2 @ HS TYLENOL EXTRA STRENGTH 500 MG TABS 648011 ACETAMINOPHEN Inactive TRAMADOL HCL 50 MG TABS 1-2 tablets every 6 hours as needed for pain TRAMADOL HCL 50 MG TABS 041755 TRAMADOL HCL Inactive HYDROCODONE-ACETAMINOPHEN 5-325 MG TABS 1 pill three times daily as needed for pain HYDROCODONE-ACETAMINOPHEN 5-325 MG TABS 175037 HYDROCODONE-ACETAMINOPHEN Inactive FLUOXETINE HCL 10 MG CAPS 2 PO q AM FLUOXETINE HCL 10 MG CAPS 728513 FLUOXETINE HCL Inactive METRONIDAZOLE 250 MG TABS 1 TID METRONIDAZOLE 250 MG TABS 127839 METRONIDAZOLE Inactive BACTRIM DS 800-160 MG TAB 1 tab by mouth twice daily BACTRIM DS 800-160 MG TAB TRIMETHOPRIM-SULFAMETHOXAZOLE Inactive BACTRIM DS 800-160 MG TAB 1 tab by mouth twice daily BACTRIM DS 800-160 MG TAB TRIMETHOPRIM-SULFAMETHOXAZOLE Inactive Advance Directives Directive Description Start Date PERMISSION TO SHARE Immunizations Vaccine Administration Date Value Standard Description Adacel (Tetanus, reduced Diphtheria, and acellular Pertussis Immunization) Adacel [ESV333] tetanus toxoid, reduced diphtheria toxoid, and acellular [...] Value Unit Range Description Lab Report: Chlamydia/GC APTIMA/61304 - Lab chlamydia DNA probe NOT DETECTED NOT DETECTED Lab Report: Chlamydia/GC APTIMA/46877 - Microbiology Neisseria gonorrhoeae DNA probe NOT [...] negative Encounters Code Encounter Date Provider Facility CPT-15309 Level 3 Est. Patient 15:41:32 CDT Jacque Blas MD PhD [facility] CPT-24966 Level 3 Est. Patient 18:02:00 [employer] Jacque Blas MD PhD [facility] CPT-82278 Level 3 Est. Patient 21:41:26 [employer] Jacque Blas MD [facility] CPT-28974 Level 4 Est. Patient 14:43:47 [employer] Jacque Blas MD [facility] CPT-83405 Level 3 Est. Patient 20:16:54 [employer] Jacque Blas MD [facility] CPT-89753 Level 3 Est. Patient 13:31:37 CDT Jacque Blas MD [facility] CPT-88272 Level 3 New Patient 18:16:07 CDT Jacque Blas MD [facility] Procedures Code Procedure Name Date Entry Date Standard Description CPT-82235 LS spine comp w obliq 15:53:02 [employer] CPT-00667 C-Spine Min 4V 15:53:02 [employer] CPT-67592 UHCG (floor use only) 14:15:45 CDT CPT-60050 UHCG (floor use only) 14:09:15 CDT CPT-J7302 Mirena IUD 13:30:58 CDT CPT-03673 Insertion of IUD 13:30:58 CDT CPT-OV Office Visit 13:30:58 CDT CPT-19612 Visit 10:48:09 CDT CPT-19010 Visit 15:34:57 CDT CPT-92194 Visit 15:25:55 CDT CPT-99935 Visit 13:58:45 CDT CPT-48420 Sono OB comp > 14 weeks 16:57:22 CDT CPT-LR Lesion Removal 09:33:27 CDT CPT-64217 Visit 12:50:42 CDT CPT-73131 Visit 18:34:25 CDT CPT-000 Give Appropriate Tetanus Booster 09:16:14 CDT CPT-62451 Administration single or combination vaccine inc oral 11 :36:32 CDT CPT-40735 Tdap 11:36:32 CDT CPT-92170 Visit 09:16:14 CDT CPT-79583 Visit 13:35:24 CDT CPT-11819 Sono OB comp > 14 weeks 11:46:07 CDT CPT-60011 Visit 17:08:15 CDT CPT-42400 Sono OB comp <14 weeks 15:47:19 [employer] CPT-25115 Visit 13:28:37 CDT CPT-72075 Spec Collection and Handling Fee 12:41:37 CDT CPT-40585 Visit 12:41:07 CDT CPT-37019 Visit 18:48:53 CDT CPT-52248 Visit 16:25:17 CDT CPT-62444 Sono OB comp > 14 weeks 11:38:18 CDT CPT-85697 Visit 13:36:17 CDT CPT-51627 Visit 13:48:22 CDT
--- OUTSIDE RECORDS SUMMARY | 2019-01-13 20:42 | XMS REPORT ---
Author Author [facility] [employer] [facility] Medical Staff Organization [facility] Address [address], [place] [address] Phone [phone] Care Team Providers Care Biofuels Technology Development Manager Name Role Phone EDDY PEARCE MD PP [phone] Summary purpose TRANSITION OF CARE AUTO GENERATION Chief Complaint and Reason for Visit Admit Diagnosis 1 AMPHETAMINE ABUSE-UNSPEC Problem list No authorized problems tracked for [...] Relevant diagnostic tests and/or laboratory data RESULTS Drug Screen In House [id number]:20:00 Result Normal Range Units Amphetamine AB Positive Negative Barbiturates Negative Negative Benzodiazepines Negative Negative Cannabinoids Negative Negative *Triage TOXis a medical drug screen to be used only for assessment and treatment of patients. This drug screen cannot be used for employment or legal purposes. Cocaine Negative Negative Mamp/MDMA AB Positive Negative Methadone Negative Negative Opiates Negative Negative Phencyclidine Negative Negative Tricyclic Antidepressants Negative Negative Therapeutic Drug Monitoring [id number]:15:00 Result Normal Range Units Acetaminophen L 0.0 10.0-30.0 ug/ml Salicylate L 0.4 2.0-20.0 mg/dl Chemistry [id number]:15:00 Result Normal Range Units Sodium 140 134-145 mEq/l Potassium L 3.4 3.5-5.1 mEq/l Chloride 102 98-107 mEq/l CO2 25.3 22-28 mEq/l Glucose H 121 70-105 mg/dl BUN 9 7-18 mg/dl Creatinine 0.93 0.6-1.0 mg/dl Calcium 9.1 8.4-10.2 mg/dl TP - Total Protein 8.0 6.0-8.3 g/dl Albumin 4.3 3.5-5 g/dl Bilirubin - Total 0.7 0.1-1.0 mg/dl AST 17 10-42 IU/L ALT 17 12-65 IU/L ALP 60 25-72 IU/L Osmolality L 279.3 280-300 mOsm/L Albumin/Globulin Ratio 1.2 0-8 Anion GAP 12.7 8-16 BUN/Creatinine Ratio L 9.7 10-20 Estimated GFR 74 >=60 mL/min/1.7 Hematology [id number]:15:00 Result Normal Range Units WBC 8.6 4.8-10.8 103/uL RBC L 4.1 4.2-5.4 106/uL HGB 12.1 12.0-16.0 g/dl HCT L 36.2 36.9-47.0 % MCV 87.4 81-99 FL MCH 29.2 27-31 pg MCHC 33.4 33-37 g/dl RDW 13.1 11.5-15.5 % PLT 347 130-400 103/uL MPV 9.9 7.3-10.4 FL Special Chemistry [id number]:15:00 Result Normal Range Units ETOH < 3 0-5 mg/dl [id number]:10:00 Result Normal Range Units HCG (Qualitative) Negative Radiology Results [id number]:15:00 Result Normal Range Units MPV 9.9 7.3-10.4 FL History of procedures Procedure Code Code Type Description Date Performed Performing Physician 77997 CPT-4 ELECTROCARDIOGRAM, TRACING 09-21-2014 AMINTA ROSS 83838 CPT-4 COMPLETE CBC, AUTOMATED 09-21-2014 AMINTA ROSS 71981 CPT-4 COMPREHEN METABOLIC PANEL 09-21-2014 AMINTA ROSS 44294 CPT-4 ASSAY OF ACETAMINOPHEN 09-21-2014 AMINTA ROSS 65309 CPT-4 ASSAY OF SALICYLATE 09-21-2014 AMINTA ROSS 99432 CPT-4 ASSAY OF ETHANOL 09-21-2014 AMINTA ROSS 61176 CPT-4 DRUG SCRN 1+ CLASS NONCHROMO 09-21-2014 AMINTA ROSS 46881 CPT-4 CHORIONIC GONADOTROPIN ASSAY 09-21-2014 AMINTA ROSS 47478 CPT-4 ROUTINE VENIPUNCTURE 09-21-2014 AMINTA ROSS 51910 CPT-4 EMERGENCY DEPT VISIT 09-21-2014 AMINTA ROSS 65748 CPT-4 EMERGENCY DEPT VISIT 09-21-2014 AMINTA ROSS Functional status No functional or cognitive status observations are available for this visit. Vital signs Type Value Date Respiration Rate 18breaths per minute : Pulse 117beats per minute : Oxygen Saturation 99% :26 BP Systolic 125mmHg :26 BP Diastolic 79mmHg :26 Temperature 98.3F :26 Social history Type Value Smoking Status CURRENT EVERY DAY SMOKER Treatment Plan No treatment plan text is available for this visit. Hospital discharge instructions Dismissal Condition good Disposition on DC other (specify) Comment: CPD to intermediate DC Inst/Educ Give yes Med/Side Effects Rev yes
--- OUTSIDE RECORDS SUMMARY | 2019-01-13 20:42 | XMS REPORT ---
Author [facility] Medical Staff Organization [facility] Address [address], [place] [address] Phone [phone] Care Team Providers Care Furnace Erector Name Role Phone EDDY PEARCE MD PP [phone] Summary purpose TRANSITION OF CARE AUTO GENERATION [...] laboratory data RESULTS Drug Screen In House :20:00 Result Normal Range Units Amphetamine AB Positive [...] Tricyclic Antidepressants Negative Negative Therapeutic Drug Monitoring [id number]:15:00 Result Normal Range Units Acetaminophen L 0.0 10.0-30.0 ug/ml Salicylate L 0.4 2.0-20.0 mg/dl Chemistry [id number]:15:00 Result Normal Range Units Sodium 140 134-145 [...] 10-20 Estimated GFR 74 >=60 mL/min/1.7 Hematology [id number]:15:00 Result Normal Range Units WBC 8.6 4.8-10.8 103/uL RBC L 4.1 4.2-5.4 106/uL HGB 12.1 12.0-16.0 g/dl HCT L 36.2 36.9-47.0 % MCV 87.4 81-99 FL MCH 29.2 27-31 pg MCHC 33.4 33-37 g/dl RDW 13.1 11.5-15.5 % PLT 347 130-400 103/uL MPV 9.9 7.3-10.4 FL Special Chemistry :15:00 Result Normal Range Units ETOH < 3 0-5 mg/dl :10:00 Result Normal Range Units HCG (Qualitative) Negative Radiology Results :15:00 Result Normal Range Units MPV 9.9 7.3-10.4 FL History of procedures No procedures recorded for this patient visit. Functional status No functional or cognitive status observations are available for this visit. Vital signs Type Value Date Respiration Rate 18breaths per minute :26 Pulse 117beats per minute :26 Oxygen Saturation 99% :26 BP Systolic 125mmHg :26 BP Diastolic 79mmHg :26 Temperature 98.3F [id number]:26 Social history Type Value Smoking Status CURRENT EVERY DAY SMOKER Treatment Plan No treatment plan text is available for this visit. Hospital discharge instructions Dismissal Condition good Disposition on DC other (specify) Comment: CPD to fpc DC Inst/Educ Give yes Med/Side Effects Rev yes
--- OUTSIDE RECORDS SUMMARY | 2019-01-13 20:42 | XMS REPORT | Clinical Summary ---
[...] daily if needed for muscle spasms METHOCARBAMOL [id number] No Longer Active Jacque Blas MD PhD Active CITALOPRAM HYDROBROMIDE 10 MG TABS 1 pill daily, for depression/anxiety 02/09 CITALOPRAM HYDROBROMIDE 35198474657 No Longer Active Jacque Blas MD PhD Active HYDROCODONE-ACETAMINOPHEN 7.5-325 MG TABS 1 four times a day as needed for pain HYDROCODONE-ACETAMINOPHEN 43044011291 Active Bruce Vicente MD Active HYDROCODONE-ACETAMINOPHEN 5-325 MG TABS 1 pill three times daily as needed for pain HYDROCODONE-ACETAMINOPHEN 46098894120 No Longer Active Jacque Blas MD PhD Active IBUPROFEN 600 MG TAB 1 pill four times daily, with food IBUPROFEN 10457596058 Active Jacque Blas MD PhD Active TRAMADOL HCL 50 MG TABS 1-2 tablets every 6 hours as needed for pain TRAMADOL HCL 94032216449 No Longer Active Jacque Blas MD PhD Active TYLENOL EXTRA STRENGTH 500 MG TABS 2 @ HS ACETAMINOPHEN 09234499543 No Longer Active Jacque Blas MD PhD Active SERTRALINE HCL 50 MG TABS 1 daily for depression SERTRALINE HCL 48659591843 No Longer Active Jacque Blas MD PhD Active BACTRIM DS 800-160 MG TAB 1 tab by mouth twice daily TRIMETHOPRIM-SULFAMETHOXAZOLE 89544826082 No Longer Active Eva Alejo APRN Active FLINSTONES GUMMIES OMEGA-3 DHA CHEW Take one by mouth daily PEDIATRIC MULTIPLE VIT-C-FA 43729730075 No Longer Active Jacque Blas MD PhD Active RANITIDINE HCL 150 MG CAPS 1 twice a day RANITIDINE HCL 09977152550 No Longer Active Jacque Blas MD PhD Active PNV-OMEGA 28-0.6-0.4-340 MG CAPS 1 pill by mouth daily PRENAT W/O M-DY-BXHCG-FA-OMEGA 10120144170 No Longer Active Jacque Blas MD PhD Active BACTRIM DS 800-160 MG TAB 1 tab by mouth twice daily TRIMETHOPRIM-SULFAMETHOXAZOLE 72038292003 No Longer Active Jacque Blas MD PhD Active METRONIDAZOLE 250 MG TABS 1 TID METRONIDAZOLE 33691410898 No Longer Active Jacque Blas MD PhD Active TRI-SPRINTEC 0.18/0.215/0.25 MG-35 MCG TABS 1 PO q Day NORGESTIM-ETH ESTRAD TRIPHASIC 03638652676 No Longer Active Jacque Blas MD PhD Active ALPRAZOLAM 0.25 MG TABS 1/2 tab to 1 tab PO TID PRN ALPRAZOLAM 27014516887 No Longer Active Jacque Blas MD PhD Active FLUOXETINE HCL 10 MG CAPS 2 PO q AM FLUOXETINE HCL 06550394048 No Longer Active Jacque Blas MD PhD Active ALPRAZOLAM 0.25 MG TABS 1/2 tab to 1 tab PO TID PRN ALPRAZOLAM 0.25 MG TABS 428862 ALPRAZOLAM Inactive TRI-SPRINTEC 0.18/0.215/0.25 MG-35 MCG TABS 1 PO q Day TRI-SPRINTEC 0.18/0.215/0.25 MG-35 MCG TABS 339530 NORGESTIM-ETH ESTRAD TRIPHASIC Inactive PNV-OMEGA 28-0.6-0.4-340 MG CAPS 1 pill by mouth daily PNV-OMEGA 28-0.6-0.4-340 MG CAPS PRENAT W/O W-BY-WRZWL-FA-OMEGA Inactive RANITIDINE HCL 150 MG CAPS 1 twice a day RANITIDINE HCL 150 MG CAPS 782279 RANITIDINE HCL Inactive FLINSTONES GUMMIES OMEGA-3 DHA CHEW Take one by mouth daily FLINSTONES GUMMIES OMEGA-3 DHA CHEW PEDIATRIC MULTIPLE VIT-C-FA Inactive SERTRALINE HCL 50 MG TABS 1 daily for depression SERTRALINE HCL 50 MG TABS 654317 SERTRALINE HCL Inactive TYLENOL EXTRA STRENGTH 500 MG TABS 2 @ HS TYLENOL EXTRA STRENGTH 500 MG TABS 729902 ACETAMINOPHEN Inactive TRAMADOL HCL 50 MG TABS 1-2 tablets every 6 hours as needed for pain TRAMADOL HCL 50 MG TABS 250925 TRAMADOL HCL Inactive HYDROCODONE-ACETAMINOPHEN 5-325 MG TABS 1 pill three times daily as needed for pain HYDROCODONE-ACETAMINOPHEN 5-325 MG TABS 610513 HYDROCODONE-ACETAMINOPHEN Inactive CITALOPRAM HYDROBROMIDE 10 MG TABS 1 pill daily, for depression/anxiety 02/09 CITALOPRAM HYDROBROMIDE 10 MG TABS 964795 CITALOPRAM HYDROBROMIDE Inactive ROBAXIN 500 MG TAB 1-2 pills up to four times daily if needed for muscle spasms ROBAXIN 500 MG TAB 356275 METHOCARBAMOL Inactive FLUOXETINE HCL 10 MG CAPS 2 PO q AM FLUOXETINE HCL 10 MG CAPS 809700 FLUOXETINE HCL Inactive METRONIDAZOLE 250 MG TABS 1 TID METRONIDAZOLE 250 MG TABS 685860 METRONIDAZOLE Inactive BACTRIM DS 800-160 MG TAB [...] reduced Diphtheria, and acellular Pertussis Immunization) Adacel [[id number]] tetanus toxoid, reduced diphtheria toxoid, and acellular [...] Value Unit Range Description Lab Report: Chlamydia/GC APTIMA/65341 - Lab chlamydia DNA probe NOT DETECTED NOT DETECTED chlamydia DNA probe NOT DETECTED NOT DETECTED Lab Report: Chlamydia/GC APTIMA/51984 - Microbiology Neisseria gonorrhoeae DNA probe NOT [...] negative Encounters Code Encounter Date Provider Facility CPT-56677 Level 4 Est. Patient 20:19:14 CDT Jacque Blas MD [facility] CPT-10932 Level 3 Est. Patient 15:41:32 CDT Jacque Blas MD [facility] CPT-62018 Level 3 Est. Patient 18:02:00 SURGICAL TRAINING SPECIALIST Jacque Blas MD PhD [facility] CPT-19079 Level 3 Est. Patient 21:41:26 SURGICAL TRAINING SPECIALIST Jacque Blas MD PhD [facility] CPT-81645 Level 4 Est. Patient 14:43:47 SURGICAL TRAINING SPECIALIST Jacque Blas MD [facility]-25625 Level 3 Est. Patient 20:16:54 SURGICAL TRAINING SPECIALIST Jacque Blas MD PhD [facility] CPT-53094 Level 3 Est. Patient 13:31:37 CDT Jacque Blas MD [facility]-16404 Level 3 New Patient 18:16:07 CDT Jacque Blas MD PhD [facility] Procedures Code Procedure Name Date Entry Date Standard Description CPT-85260 LS spine comp w obliq 15:53:02 SURGICAL TRAINING SPECIALIST CPT-16520 C-Spine Min 4V 15:53:02 SURGICAL TRAINING SPECIALIST CPT-82714 UHCG (floor use only) 14:15:45 CDT CPT-46158 UHCG (floor use only) 14:09:15 CDT CPT-J7302 Mirena IUD 13:30:58 CDT CPT-79963 Insertion of IUD 13:30:58 CDT CPT-OV Office Visit 13:30:58 CDT CPT-59094 Visit 10:48:09 CDT CPT-52206 Visit 15:34:57 CDT CPT-18372 Visit 15:25:55 CDT CPT-91179 Visit 13:58:45 CDT CPT-64200 Sono OB comp > 14 weeks 16:57:22 CDT CPT-LR Lesion Removal 09:33:27 CDT CPT-40478 Visit 12:50:42 CDT CPT-24121 Visit 18:34:25 CDT CPT-000 Give Appropriate Tetanus Booster 09:16:14 CDT CPT-51335 Administration single or combination vaccine inc oral 11 :36:32 CDT CPT-81161 Tdap 11:36:32 CDT CPT-91157 Visit 09:16:14 CDT CPT-42238 Visit 13:35:24 CDT CPT-31827 Sono OB comp > 14 weeks 11:46:07 CDT CPT-17483 Visit 17:08:15 CDT CPT-74671 Sono OB comp <14 weeks 15:47:19 SURGICAL TRAINING SPECIALIST CPT-94555 Visit 13:28:37 CDT CPT-31518 Spec Collection and Handling Fee 12:41:37 CDT CPT-51684 Visit 12:41:07 CDT CPT-75115 Visit 18:48:53 CDT CPT-11812 Visit 16:25:17 CDT CPT-33093 Sono OB comp > 14 weeks 11:38:18 CDT CPT-82374 Visit 13:36:17 CDT CPT-47185 Visit 13:48:22 CDT
--- OUTSIDE RECORDS SUMMARY | 2019-01-13 20:43 | XMS REPORT | Clinical Summary ---
Author Author Admin, MARCO ANTONIO Gardiner [facility] Address Unknown Phone Unavailable Allergies, Adverse [...] weeks, then 2 pills daily 07/26 LAMOTRIGINE 10824599156 Active Jacque Blas MD PhD Active ROBAXIN 500 MG TAB 1-2 pills up to four times daily if needed for muscle spasms METHOCARBAMOL 47376197343 No Longer Active Jacque Blas MD PhD Active CITALOPRAM HYDROBROMIDE 10 MG TABS 1 pill daily, for depression/anxiety 02/09 CITALOPRAM HYDROBROMIDE 30379852990 No Longer Active Jacque Blas MD PhD Active HYDROCODONE-ACETAMINOPHEN 7.5-325 MG TABS 1 four times a day as needed for pain HYDROCODONE-ACETAMINOPHEN 64717204727 Active Jacque Blas MD PhD Active HYDROCODONE-ACETAMINOPHEN 5-325 MG TABS 1 pill three times daily as needed for pain HYDROCODONE-ACETAMINOPHEN 78245677713 No Longer Active Jacque Blas MD PhD Active IBUPROFEN 600 MG TAB 1 pill four times daily, with food IBUPROFEN 80110367547 Active Jacque Blas MD PhD Active TRAMADOL HCL 50 MG TABS 1-2 tablets every 6 hours as needed for pain TRAMADOL HCL 71595563108 No Longer Active Jacque Blas MD PhD Active TYLENOL EXTRA STRENGTH 500 MG TABS 2 @ HS ACETAMINOPHEN 52651617765 No Longer Active Jacque Blas MD PhD Active SERTRALINE HCL 50 MG TABS 1 daily for depression SERTRALINE HCL 25793331387 No Longer Active Jacque Blas MD PhD Active BACTRIM DS 800-160 MG TAB 1 tab by mouth twice daily TRIMETHOPRIM-SULFAMETHOXAZOLE 22393036773 No Longer Active Eva Alejo APRN Active FLINSTONES GUMMIES OMEGA-3 DHA CHEW Take one by mouth daily PEDIATRIC MULTIPLE VIT-C-FA 60382680243 No Longer Active Jacque Blas MD PhD Active RANITIDINE HCL 150 MG CAPS 1 twice a day RANITIDINE HCL 58508661760 No Longer Active Jacque Blas MD PhD Active PNV-OMEGA 28-0.6-0.4-340 MG CAPS 1 pill by mouth daily PRENAT W/O S-OL-MYELX-FA-OMEGA 58158148647 No Longer Active Jacque Blas MD PhD Active BACTRIM DS 800-160 MG TAB 1 tab by mouth twice daily TRIMETHOPRIM-SULFAMETHOXAZOLE 63031774153 No Longer Active Jacque Blas MD PhD Active METRONIDAZOLE 250 MG TABS 1 TID METRONIDAZOLE 73853978993 No Longer Active Jacque Blas MD PhD Active TRI-SPRINTEC 0.18/0.215/0.25 MG-35 MCG TABS 1 PO q Day NORGESTIM-ETH ESTRAD TRIPHASIC 68780789134 No Longer Active Jacque Blas MD PhD Active ALPRAZOLAM 0.25 MG TABS 1/2 tab to 1 tab PO TID PRN ALPRAZOLAM 57672480127 No Longer Active Jacque Blas MD PhD Active FLUOXETINE HCL 10 MG CAPS 2 PO q AM FLUOXETINE HCL 22683293072 No Longer Active Jacque Blas MD PhD Active ALPRAZOLAM 0.25 MG TABS 1/2 tab to 1 tab PO TID PRN ALPRAZOLAM 0.25 MG TABS 133218 ALPRAZOLAM Inactive TRI-SPRINTEC 0.18/0.215/0.25 MG-35 MCG TABS 1 PO q Day TRI-SPRINTEC 0.18/0.215/0.25 MG-35 MCG TABS 590648 NORGESTIM-ETH ESTRAD TRIPHASIC Inactive PNV-OMEGA 28-0.6-0.4-340 MG CAPS 1 pill by mouth daily PNV-OMEGA 28-0.6-0.4-340 MG CAPS PRENAT W/O Z-EM-OZHER-FA-OMEGA Inactive RANITIDINE HCL 150 MG CAPS 1 twice a day RANITIDINE HCL 150 MG CAPS 796576 RANITIDINE HCL Inactive FLINSTONES GUMMIES OMEGA-3 DHA CHEW Take one by mouth daily FLINSTONES GUMMIES OMEGA-3 DHA CHEW PEDIATRIC MULTIPLE VIT-C-FA Inactive SERTRALINE HCL 50 MG TABS 1 daily for depression SERTRALINE HCL 50 MG TABS 986419 SERTRALINE HCL Inactive TYLENOL EXTRA STRENGTH 500 MG TABS 2 @ HS TYLENOL EXTRA STRENGTH 500 MG TABS 530367 ACETAMINOPHEN Inactive TRAMADOL HCL 50 MG TABS 1-2 tablets every 6 hours as needed for pain TRAMADOL HCL 50 MG TABS 659407 TRAMADOL HCL Inactive HYDROCODONE-ACETAMINOPHEN 5-325 MG TABS 1 pill three times daily as needed for pain HYDROCODONE-ACETAMINOPHEN 5-325 MG TABS 770204 HYDROCODONE-ACETAMINOPHEN Inactive CITALOPRAM HYDROBROMIDE 10 MG TABS 1 pill daily, for depression/anxiety 02/09 CITALOPRAM HYDROBROMIDE 10 MG TABS 426744 CITALOPRAM HYDROBROMIDE Inactive ROBAXIN 500 MG TAB 1-2 pills up to four times daily if needed for muscle spasms ROBAXIN 500 MG TAB 910563 METHOCARBAMOL Inactive FLUOXETINE HCL 10 MG CAPS 2 PO q AM FLUOXETINE HCL 10 MG CAPS 483021 FLUOXETINE HCL Inactive METRONIDAZOLE 250 MG TABS 1 TID METRONIDAZOLE 250 MG TABS 283906 METRONIDAZOLE Inactive BACTRIM DS 800-160 MG TAB [...] reduced Diphtheria, and acellular Pertussis Immunization) Adacel [[id number]] tetanus toxoid, reduced diphtheria toxoid, and acellular [...] Value Unit Range Description Lab Report: Chlamydia/GC APTIMA/44625 - Lab chlamydia DNA probe NOT DETECTED NOT DETECTED chlamydia DNA probe NOT DETECTED NOT DETECTED Lab Report: Chlamydia/GC APTIMA/65599 - Microbiology Neisseria gonorrhoeae DNA probe NOT [...] negative Encounters Code Encounter Date Provider Facility CPT-17545 Level 3 Est. Patient 14:38:20 CDT Jacque Blas MD PhD [facility] CPT-75361 Level 4 Est. Patient 20:19:14 CDT Jacque Blas MD PhD [facility] CPT-05981 Level 3 Est. Patient 15:41:32 CDT Jacque Blas MD PhD [facility] CPT-57237 Level 3 Est. Patient 18:02:00 DIRECTOR OF GOVERNMENT SALES Jacque Blas MD [facility] CPT-75455 Level 3 Est. Patient 21:41:26 DIRECTOR OF GOVERNMENT SALES Jacque Blas MD [facility] CPT-61126 Level 4 Est. Patient 14:43:47 DIRECTOR OF GOVERNMENT SALES Jacque Blas MD [facility] CPT-61472 Level 3 Est. Patient 20:16:54 DIRECTOR OF GOVERNMENT SALES Jacque Blas MD [facility] CPT-45418 Level 3 Est. Patient 13:31:37 CDT Jacque Blas MD [facility] CPT-35774 Level 3 New Patient 18:16:07 CDT Jacque Blas MD [facility] Procedures Code Procedure Name Date Entry Date Standard Description CPT-28236 LS spine comp w obliq 15:53:02 DIRECTOR OF GOVERNMENT SALES CPT-12341 C-Spine Min 4V 15:53:02 DIRECTOR OF GOVERNMENT SALES CPT-24890 UHCG (floor use only) 14:15:45 CDT CPT-27538 UHCG (floor use only) 14:09:15 CDT CPT-J7302 Mirena IUD 13:30:58 CDT CPT-89720 Insertion of IUD 13:30:58 CDT CPT-OV Office Visit 13:30:58 CDT CPT-94232 Visit 10:48:09 CDT CPT-20755 Visit 15:34:57 CDT CPT-63385 Visit 15:25:55 CDT CPT-19635 Visit 13:58:45 CDT CPT-86591 Sono OB comp > 14 weeks 16:57:22 CDT CPT-LR Lesion Removal 09:33:27 CDT CPT-56911 Visit 12:50:42 CDT CPT-90557 Visit 18:34:25 CDT CPT-000 Give Appropriate Tetanus Booster 09:16:14 CDT CPT-42155 Administration single or combination vaccine inc oral 11 :36:32 CDT CPT-91626 Tdap 11:36:32 CDT CPT-65742 Visit 09:16:14 CDT CPT-37759 Visit 13:35:24 CDT CPT-53667 Sono OB comp > 14 weeks 11:46:07 CDT CPT-41160 Visit 17:08:15 CDT CPT-93031 Sono OB comp <14 weeks 15:47:19 DIRECTOR OF GOVERNMENT SALES CPT-07751 Visit 13:28:37 CDT CPT-88327 Spec Collection and Handling Fee 12:41:37 CDT CPT-73634 Visit 12:41:07 CDT CPT-97209 Visit 18:48:53 CDT CPT-82859 Visit 16:25:17 CDT CPT-67655 Sono OB comp > 14 weeks 11:38:18 CDT CPT-05240 Visit 13:36:17 CDT CPT-56947 Visit 13:48:22 CDT
--- OUTSIDE RECORDS SUMMARY | 2019-01-13 20:44 | XMS REPORT | Clinical Summary ---
Author Author Admin, MARCO ANTONIO Gardiner [facility] Address Unknown Phone Allergies, Adverse Reactions, Alerts Allergy Name Reaction Description Start Date Severity Status Provider No Known Allergies Cecelia Russell [facility] Conditions or Problems Problem Name Problem [...] MD PhD BACTERIAL VAGINITIS ICD-616.10 Inactive Jacque Blsa MD PhD DECR MOVMNTS MGMT MOTH ANTPRTM [...] pill daily, for depression/anxiety 02/09 CITALOPRAM HYDROBROMIDE 07166152754 Active Jacque Blas MD PhD Active HYDROCODONE-ACETAMINOPHEN 7.5-325 MG TABS 1 four times a day as needed for pain HYDROCODONE-ACETAMINOPHEN 77661401987 Active Jacque Blas MD PhD Active HYDROCODONE-ACETAMINOPHEN 5-325 MG TABS 1 pill three times daily as needed for pain HYDROCODONE-ACETAMINOPHEN 65779680639 No Longer Active Jacque Blas MD PhD Active ROBAXIN 500 MG TAB 1-2 pills up to four times daily if needed for muscle spasms METHOCARBAMOL 60494682749 Active Jacque Blas MD PhD Active IBUPROFEN 600 MG TAB 1 pill four times daily, with food IBUPROFEN 39082060199 Active Jacque Blas MD PhD Active TRAMADOL HCL 50 MG TABS 1-2 tablets every 6 hours as needed for pain TRAMADOL HCL 65855827889 No Longer Active Jacque Blas MD PhD Active TYLENOL EXTRA STRENGTH 500 MG TABS 2 @ HS ACETAMINOPHEN 99917135214 No Longer Active Jacque Blas MD PhD Active SERTRALINE HCL 50 MG TABS 1 daily for depression SERTRALINE HCL 56554714653 No Longer Active Jacque Blas MD PhD Active BACTRIM DS 800-160 MG TAB 1 tab by mouth twice daily TRIMETHOPRIM-SULFAMETHOXAZOLE 32592748188 No Longer Active Eva Alejo APRN Active FLINSTONES GUMMIES OMEGA-3 DHA CHEW Take one by mouth daily PEDIATRIC MULTIPLE VIT-C-FA 32974024256 No Longer Active Jacque Blas MD PhD Active RANITIDINE HCL 150 MG CAPS 1 twice a day RANITIDINE HCL 27468307185 No Longer Active Jacque Blas MD PhD Active PNV-OMEGA 28-0.6-0.4-340 MG CAPS 1 pill by mouth daily PRENAT W/O H-ZL-IQAHW-FA-OMEGA 94506475921 No Longer Active Jacque Blas MD PhD Active BACTRIM DS 800-160 MG TAB 1 tab by mouth twice daily TRIMETHOPRIM-SULFAMETHOXAZOLE 22523129407 No Longer Active Jacque Blas MD PhD Active METRONIDAZOLE 250 MG TABS 1 TID METRONIDAZOLE 47857558755 No Longer Active Jacque Blas MD PhD Active TRI-SPRINTEC 0.18/0.215/0.25 MG-35 MCG TABS 1 PO q Day NORGESTIM-ETH ESTRAD TRIPHASIC 39088641644 No Longer Active Jacque Blas MD PhD Active ALPRAZOLAM 0.25 MG TABS 1/2 tab to 1 tab PO TID PRN ALPRAZOLAM 18936842298 No Longer Active Jacque Blas MD PhD Active FLUOXETINE HCL 10 MG CAPS 2 PO q AM FLUOXETINE HCL 46625157101 No Longer Active Jacque Blas MD PhD Active ALPRAZOLAM 0.25 MG TABS 1/2 tab to 1 tab PO TID PRN ALPRAZOLAM 0.25 MG TABS 840298 ALPRAZOLAM Inactive TRI-SPRINTEC 0.18/0.215/0.25 MG-35 MCG TABS 1 PO q Day TRI-SPRINTEC 0.18/0.215/0.25 MG-35 MCG TABS 235305 NORGESTIM-ETH ESTRAD TRIPHASIC Inactive PNV-OMEGA 28-0.6-0.4-340 MG CAPS 1 pill by mouth daily PNV-OMEGA 28-0.6-0.4-340 MG CAPS PRENAT W/O W-TC-LTWGB-FA-OMEGA Inactive RANITIDINE HCL 150 MG CAPS 1 twice a day RANITIDINE HCL 150 MG CAPS 057666 RANITIDINE HCL Inactive FLINSTONES GUMMIES OMEGA-3 DHA CHEW Take one by mouth daily FLINSTONES GUMMIES OMEGA-3 DHA CHEW PEDIATRIC MULTIPLE VIT-C-FA Inactive SERTRALINE HCL 50 MG TABS 1 daily for depression SERTRALINE HCL 50 MG TABS 398496 SERTRALINE HCL Inactive TYLENOL EXTRA STRENGTH 500 MG TABS 2 @ HS TYLENOL EXTRA STRENGTH 500 MG TABS 424843 ACETAMINOPHEN Inactive TRAMADOL HCL 50 MG TABS 1-2 tablets every 6 hours as needed for pain TRAMADOL HCL 50 MG TABS 118586 TRAMADOL HCL Inactive HYDROCODONE-ACETAMINOPHEN 5-325 MG TABS 1 pill three times daily as needed for pain HYDROCODONE-ACETAMINOPHEN 5-325 MG TABS 802490 HYDROCODONE-ACETAMINOPHEN Inactive FLUOXETINE HCL 10 MG CAPS 2 PO q AM FLUOXETINE HCL 10 MG CAPS 263039 FLUOXETINE HCL Inactive METRONIDAZOLE 250 MG TABS 1 TID METRONIDAZOLE 250 MG TABS 965473 METRONIDAZOLE Inactive BACTRIM DS 800-160 MG TAB 1 tab by mouth twice daily BACTRIM DS 800-160 MG TAB TRIMETHOPRIM-SULFAMETHOXAZOLE Inactive BACTRIM DS 800-160 MG TAB 1 tab by mouth twice daily BACTRIM DS 800-160 MG TAB TRIMETHOPRIM-SULFAMETHOXAZOLE Inactive Advance Directives Directive Description Start Date PERMISSION TO SHARE Immunizations Vaccine Administration Date Value Standard Description Adacel immunization Adacel [[id number]] tetanus toxoid, reduced diphtheria toxoid, and acellular [...] serum NO ANTIBODIES DETECTED Lab Report: Chlamydia/GC APTIMA/31644 - Lab chlamydia DNA probe NOT DETECTED NOT DETECTED Lab Report: Chlamydia/GC APTIMA/66858 - Microbiology Neisseria gonorrhoeae DNA probe NOT [...] negative Encounters Code Encounter Date Provider Facility CPT-07295 Level 3 Est. Patient 15:41:32 CDT Jacque Blas MD [facility] CPT-13548 Level 3 Est. Patient 18:02:00 TEST AND TURN UP TECHNICIAN Jacque Blas MD [facility] CPT-65634 Level 3 Est. Patient 21:41:26 TEST AND TURN UP TECHNICIAN Jacque Blas MD [facility] CPT-33843 Level 4 Est. Patient 14:43:47 TEST AND TURN UP TECHNICIAN Jacque Blas MD [facility] CPT-02543 Level 3 Est. Patient 20:16:54 TEST AND TURN UP TECHNICIAN Jacque Blas MD [facility] CPT-85907 Level 3 Est. Patient 13:31:37 CDT Jacque Blas MD [facility] CPT-19565 Level 3 New Patient 18:16:07 CDT Jacque Blas MD [facility] Procedures Code Procedure Name Date Entry Date Standard Description CPT-00252 LS spine comp w obliq 15:53:02 TEST AND TURN UP TECHNICIAN CPT-74224 C-Spine Min 4V 15:53:02 TEST AND TURN UP TECHNICIAN CPT-89184 UHCG (floor use only) 14:15:45 CDT CPT-67856 UHCG (floor use only) 14:09:15 CDT CPT-J7302 Mirena IUD 13:30:58 CDT CPT-86863 Insertion of IUD 13:30:58 CDT CPT-OV Office Visit 13:30:58 CDT CPT-91286 Visit 10:48:09 CDT CPT-92967 Visit 15:34:57 CDT CPT-27748 Visit 15:25:55 CDT CPT-66763 Visit 13:58:45 CDT CPT-16306 Sono OB comp > 14 weeks 16:57:22 CDT CPT-LR Lesion Removal 09:33:27 CDT CPT-44946 Visit 12:50:42 CDT CPT-19217 Visit 18:34:25 CDT CPT-000 Give Appropriate Tetanus Booster 09:16:14 CDT CPT-83456 Administration single or combination vaccine inc oral 11 :36:32 CDT CPT-14198 Tdap 11:36:32 CDT CPT-63078 Visit 09:16:14 CDT CPT-34891 Visit 13:35:24 CDT CPT-41372 Sono OB comp > 14 weeks 11:46:07 CDT CPT-93806 Visit 17:08:15 CDT CPT-71474 Sono OB comp <14 weeks 15:47:19 TEST AND TURN UP TECHNICIAN CPT-79102 Visit 13:28:37 CDT CPT-96274 Spec Collection and Handling Fee 12:41:37 CDT CPT-82062 Visit 12:41:07 CDT CPT-39893 Visit 18:48:53 CDT CPT-78592 Visit 16:25:17 CDT CPT-05727 Sono OB comp > 14 weeks 11:38:18 CDT CPT-50586 Visit 13:36:17 CDT CPT-65641 Visit 13:48:22 CDT
--- OUTSIDE RECORDS SUMMARY | 2019-01-13 20:44 | XMS REPORT | Clinical Summary ---
Author Author Admin, MARCO ANTONOI Gardiner [facility] Address Unknown Phone Unavailable Allergies, Adverse [...] PhD , NORMAL, MULTIGRAVIDA ICD-V22.1 Inactive Jacque Blsa MD PhD OTHER SPECIFED COMPLICATION ANTEPARTUM ICD-646.83 [...] daily if needed for muscle spasms METHOCARBAMOL [id number] No Longer Active Jacque Blas MD PhD Active CITALOPRAM HYDROBROMIDE 10 MG TABS 1 pill daily, for depression/anxiety 02/09 CITALOPRAM HYDROBROMIDE 21015274257 No Longer Active Jacque Blas MD PhD Active HYDROCODONE-ACETAMINOPHEN 7.5-325 MG TABS 1 four times a day as needed for pain HYDROCODONE-ACETAMINOPHEN 44662514951 Active Bruce Vicente MD Active HYDROCODONE-ACETAMINOPHEN 5-325 MG TABS 1 pill three times daily as needed for pain HYDROCODONE-ACETAMINOPHEN 26354867254 No Longer Active Jacque Blas MD PhD Active IBUPROFEN 600 MG TAB 1 pill four times daily, with food IBUPROFEN 49707460207 Active Jacque Blas MD PhD Active TRAMADOL HCL 50 MG TABS 1-2 tablets every 6 hours as needed for pain TRAMADOL HCL 30397336268 No Longer Active Jacque Blas MD PhD Active TYLENOL EXTRA STRENGTH 500 MG TABS 2 @ HS ACETAMINOPHEN 39741207497 No Longer Active Jacque Blas MD PhD Active SERTRALINE HCL 50 MG TABS 1 daily for depression SERTRALINE HCL 82248824749 No Longer Active Jacque Blas MD PhD Active BACTRIM DS 800-160 MG TAB 1 tab by mouth twice daily TRIMETHOPRIM-SULFAMETHOXAZOLE 74239696160 No Longer Active Eva Alejo APRN Active FLINSTONES GUMMIES OMEGA-3 DHA CHEW Take one by mouth daily PEDIATRIC MULTIPLE VIT-C-FA 64867529172 No Longer Active Jacque Blas MD PhD Active RANITIDINE HCL 150 MG CAPS 1 twice a day RANITIDINE HCL 52097427863 No Longer Active Jacque Blas MD PhD Active PNV-OMEGA 28-0.6-0.4-340 MG CAPS 1 pill by mouth daily PRENAT W/O L-HQ-[id number]-FA-OMEGA 86540553725 No Longer Active Jacque Blas MD PhD Active BACTRIM DS 800-160 MG TAB 1 tab by mouth twice daily TRIMETHOPRIM-SULFAMETHOXAZOLE 43126167373 No Longer Active Jacque Blas MD PhD Active METRONIDAZOLE 250 MG TABS 1 TID METRONIDAZOLE 76646247629 No Longer Active Jacque Blas MD PhD Active TRI-SPRINTEC 0.18/0.215/0.25 MG-35 MCG TABS 1 PO q Day NORGESTIM-ETH ESTRAD TRIPHASIC 95017503490 No Longer Active Jacque Blas MD PhD Active ALPRAZOLAM 0.25 MG TABS 1/2 tab to 1 tab PO TID PRN ALPRAZOLAM 21333779219 No Longer Active Jacque Blas MD PhD Active FLUOXETINE HCL 10 MG CAPS 2 PO q AM FLUOXETINE HCL 52305897377 No Longer Active Jacque Blas MD PhD Active ALPRAZOLAM 0.25 MG TABS 1/2 tab to 1 tab PO TID PRN ALPRAZOLAM 0.25 MG TABS 520883 ALPRAZOLAM Inactive TRI-SPRINTEC 0.18/0.215/0.25 MG-35 MCG TABS 1 PO q Day TRI-SPRINTEC 0.18/0.215/0.25 MG-35 MCG TABS 168801 NORGESTIM-ETH ESTRAD TRIPHASIC Inactive PNV-OMEGA 28-0.6-0.4-340 MG CAPS 1 pill by mouth daily PNV-OMEGA 28-0.6-0.4-340 MG CAPS PRENAT W/O [id number]-OMEGA Inactive RANITIDINE HCL 150 MG CAPS 1 twice a day RANITIDINE HCL 150 MG CAPS 135378 RANITIDINE HCL Inactive FLINSTONES GUMMIES OMEGA-3 DHA CHEW Take one by mouth daily FLINSTONES GUMMIES OMEGA-3 DHA CHEW PEDIATRIC MULTIPLE VIT-C-FA Inactive SERTRALINE HCL 50 MG TABS 1 daily for depression SERTRALINE HCL 50 MG TABS 493343 SERTRALINE HCL Inactive TYLENOL EXTRA STRENGTH 500 MG TABS 2 @ HS TYLENOL EXTRA STRENGTH 500 MG TABS 182282 ACETAMINOPHEN Inactive TRAMADOL HCL 50 MG TABS 1-2 tablets every 6 hours as needed for pain TRAMADOL HCL 50 MG TABS 559571 TRAMADOL HCL Inactive HYDROCODONE-ACETAMINOPHEN 5-325 MG TABS 1 pill three times daily as needed for pain HYDROCODONE-ACETAMINOPHEN 5-325 MG TABS 878626 HYDROCODONE-ACETAMINOPHEN Inactive CITALOPRAM HYDROBROMIDE 10 MG TABS 1 pill daily, for depression/anxiety 02/09 CITALOPRAM HYDROBROMIDE 10 MG TABS 625416 CITALOPRAM HYDROBROMIDE Inactive ROBAXIN 500 MG TAB 1-2 pills up to four times daily if needed for muscle spasms ROBAXIN 500 MG TAB 013824 METHOCARBAMOL Inactive FLUOXETINE HCL 10 MG CAPS 2 PO q AM FLUOXETINE HCL 10 MG CAPS 029559 FLUOXETINE HCL Inactive METRONIDAZOLE 250 MG TABS 1 TID METRONIDAZOLE 250 MG TABS 402109 METRONIDAZOLE Inactive BACTRIM DS 800-160 MG TAB [...] reduced Diphtheria, and acellular Pertussis Immunization) Adacel [[id number]] tetanus toxoid, reduced diphtheria toxoid, and acellular [...] Value Unit Range Description Lab Report: Chlamydia/GC APTIMA/29950 - Lab chlamydia DNA probe NOT DETECTED NOT DETECTED chlamydia DNA probe NOT DETECTED NOT DETECTED Lab Report: Chlamydia/GC APTIMA/77741 - Microbiology Neisseria gonorrhoeae DNA probe NOT [...] negative Encounters Code Encounter Date Provider Facility CPT-57905 Level 4 Est. Patient 20:19:14 CDT Jacque Blas MD [facility] CPT-53999 Level 3 Est. Patient 15:41:32 CDT Jacque Blas MD [facility] CPT-03452 Level 3 Est. Patient 18:02:00 CLOSER ON Jacque Blas MD PhD [facility] CPT-47259 Level 3 Est. Patient 21:41:26 CLOSER ON Jacque Blas MD PhD [facility] CPT-62102 Level 4 Est. Patient 14:43:47 CLOSER ON Jacque Blas MD [facility] [id number] Level 3 Est. Patient 20:16:54 CLOSER ON Jacque Blas MD PhD [facility] CPT-13574 Level 3 Est. Patient 13:31:37 CDT Jacque Blas MD [facility] [place]-00777 Level 3 New Patient 18:16:07 CDT Jacque Blas MD PhD [facility] Procedures Code Procedure Name Date Entry Date Standard Description CPT-61239 LS spine comp w obliq 15:53:02 CLOSER ON CPT-15146 C-Spine Min 4V 15:53:02 CLOSER ON CPT-01647 UHCG (floor use only) 14:15:45 CDT CPT-69011 UHCG (floor use only) 14:09:15 CDT CPT-J7302 Mirena IUD 13:30:58 CDT CPT-40039 Insertion of IUD 13:30:58 CDT CPT-OV Office Visit 13:30:58 CDT CPT-08547 Visit 10:48:09 CDT CPT-32726 Visit 15:34:57 CDT CPT-00833 Visit 15:25:55 CDT CPT-98566 Visit 13:58:45 CDT CPT-93711 Sono OB comp > 14 weeks 16:57:22 CDT CPT-LR Lesion Removal 09:33:27 CDT CPT-78507 Visit 12:50:42 CDT CPT-08189 Visit 18:34:25 CDT CPT-000 Give Appropriate Tetanus Booster 09:16:14 CDT CPT-51581 Administration single or combination vaccine inc oral 11 :36:32 CDT CPT-51216 Tdap 11:36:32 CDT CPT-91585 Visit 09:16:14 CDT CPT-67871 Visit 13:35:24 CDT CPT-57371 Sono OB comp > 14 weeks 11:46:07 CDT CPT-31189 Visit 17:08:15 CDT CPT-08578 Sono OB comp <14 weeks 15:47:19 CLOSER ON CPT-97539 Visit 13:28:37 CDT CPT-26213 Spec Collection and Handling Fee 12:41:37 CDT CPT-00796 Visit 12:41:07 CDT CPT-98365 Visit 18:48:53 CDT CPT-66250 Visit 16:25:17 CDT CPT-12913 Sono OB comp > 14 weeks 11:38:18 CDT CPT-09942 Visit 13:36:17 CDT CPT-35376 Visit 13:48:22 CDT
--- OUTSIDE RECORDS SUMMARY | 2019-01-13 20:45 | XMS REPORT | Clinical Summary ---
Author Author Admin, MARCO ANTONIO Gardiner [facility] Address Unknown Phone Unavailable Allergies, Adverse [...] weeks, then 2 pills daily 07/26 LAMOTRIGINE 93709227752 Active Jacque Blas MD PhD Active ROBAXIN 500 MG TAB 1-2 pills up to four times daily if needed for muscle spasms METHOCARBAMOL 11875827652 No Longer Active Jacque Blas MD PhD Active CITALOPRAM HYDROBROMIDE 10 MG TABS 1 pill daily, for depression/anxiety 02/09 CITALOPRAM HYDROBROMIDE 93830319502 No Longer Active Jacque Blas MD PhD Active HYDROCODONE-ACETAMINOPHEN 7.5-325 MG TABS 1 four times a day as needed for pain HYDROCODONE-ACETAMINOPHEN 20838075466 Active Jacque Blas MD PhD Active HYDROCODONE-ACETAMINOPHEN 5-325 MG TABS 1 pill three times daily as needed for pain HYDROCODONE-ACETAMINOPHEN 55580571707 No Longer Active Jacque Blas MD PhD Active IBUPROFEN 600 MG TAB 1 pill four times daily, with food IBUPROFEN 26719638977 Active Jacque Blas MD PhD Active TRAMADOL HCL 50 MG TABS 1-2 tablets every 6 hours as needed for pain TRAMADOL HCL 55135043352 No Longer Active Jacque Blas MD PhD Active TYLENOL EXTRA STRENGTH 500 MG TABS 2 @ HS ACETAMINOPHEN 42359127057 No Longer Active Jacque Blas MD PhD Active SERTRALINE HCL 50 MG TABS 1 daily for depression SERTRALINE HCL 15622818638 No Longer Active Jacque Blas MD PhD Active BACTRIM DS 800-160 MG TAB 1 tab by mouth twice daily TRIMETHOPRIM-SULFAMETHOXAZOLE 35074545194 No Longer Active Eva Alejo APRN Active FLINSTONES GUMMIES OMEGA-3 DHA CHEW Take one by mouth daily PEDIATRIC MULTIPLE VIT-C-FA 89287984238 No Longer Active Jacque Blas MD PhD Active RANITIDINE HCL 150 MG CAPS 1 twice a day RANITIDINE HCL 50214427302 No Longer Active Jacque Blas MD PhD Active PNV-OMEGA 28-0.6-0.4-340 MG CAPS 1 pill by mouth daily PRENAT W/O [id number]-JJ-[id number]-FA-OMEGA 80080800627 No Longer Active Jacque Blas MD PhD Active BACTRIM DS 800-160 MG TAB 1 tab by mouth twice daily TRIMETHOPRIM-SULFAMETHOXAZOLE 14084493471 No Longer Active Jacque Blas MD PhD Active METRONIDAZOLE 250 MG TABS 1 TID METRONIDAZOLE 71798577889 No Longer Active Jacque Blas MD PhD Active TRI-SPRINTEC 0.18/0.215/0.25 MG-35 MCG TABS 1 PO q Day NORGESTIM-ETH ESTRAD TRIPHASIC 52097740851 No Longer Active Jacque Blas MD PhD Active ALPRAZOLAM 0.25 MG TABS 1/2 tab to 1 tab PO TID PRN ALPRAZOLAM 91753298246 No Longer Active Jacque Blas MD PhD Active FLUOXETINE HCL 10 MG CAPS 2 PO q AM FLUOXETINE HCL 15461382578 No Longer Active Jacque Blas MD PhD Active ALPRAZOLAM 0.25 MG TABS 1/2 tab to 1 tab PO TID PRN ALPRAZOLAM 0.25 MG TABS 956442 ALPRAZOLAM Inactive TRI-SPRINTEC 0.18/0.215/0.25 MG-35 MCG TABS 1 PO q Day TRI-SPRINTEC 0.18/0.215/0.25 MG-35 MCG TABS 164368 NORGESTIM-ETH ESTRAD TRIPHASIC Inactive PNV-OMEGA 28-0.6-0.4-340 MG CAPS 1 pill by mouth daily PNV-OMEGA 28-0.6-0.4-340 MG CAPS PRENAT W/O [id number]-OMEGA Inactive RANITIDINE HCL 150 MG CAPS 1 twice a day RANITIDINE HCL 150 MG CAPS 361567 RANITIDINE HCL Inactive FLINSTONES GUMMIES OMEGA-3 DHA CHEW Take one by mouth daily FLINSTONES GUMMIES OMEGA-3 DHA CHEW PEDIATRIC MULTIPLE VIT-C-FA Inactive SERTRALINE HCL 50 MG TABS 1 daily for depression SERTRALINE HCL 50 MG TABS 348426 SERTRALINE HCL Inactive TYLENOL EXTRA STRENGTH 500 MG TABS 2 @ HS TYLENOL EXTRA STRENGTH 500 MG TABS 971980 ACETAMINOPHEN Inactive TRAMADOL HCL 50 MG TABS 1-2 tablets every 6 hours as needed for pain TRAMADOL HCL 50 MG TABS 360991 TRAMADOL HCL Inactive HYDROCODONE-ACETAMINOPHEN 5-325 MG TABS 1 pill three times daily as needed for pain HYDROCODONE-ACETAMINOPHEN 5-325 MG TABS 679353 HYDROCODONE-ACETAMINOPHEN Inactive CITALOPRAM HYDROBROMIDE 10 MG TABS 1 pill daily, for depression/anxiety 02/09 CITALOPRAM HYDROBROMIDE 10 MG TABS 413381 CITALOPRAM HYDROBROMIDE Inactive ROBAXIN 500 MG TAB 1-2 pills up to four times daily if needed for muscle spasms ROBAXIN 500 MG TAB 228909 METHOCARBAMOL Inactive FLUOXETINE HCL 10 MG CAPS 2 PO q AM FLUOXETINE HCL 10 MG CAPS 101823 FLUOXETINE HCL Inactive METRONIDAZOLE 250 MG TABS 1 TID METRONIDAZOLE 250 MG TABS 391224 METRONIDAZOLE Inactive BACTRIM DS 800-160 MG TAB [...] given Td(adult) unspecified formulation Adacel immunization Adacel [[id number]] tetanus toxoid, reduced diphtheria toxoid, and acellular [...] temperature weight E&M 221 [lb_av] Weight Measured Diagnostic Results Date Name Value Unit Range Description Lab Report: Chlamydia/GC APTIMA/[id number] - Lab chlamydia DNA probe NOT DETECTED NOT DETECTED chlamydia DNA probe NOT DETECTED NOT DETECTED Lab Report: Chlamydia/GC APTIMA/56275 - Microbiology Neisseria gonorrhoeae DNA probe NOT [...] negative Encounters Code Encounter Date Provider Facility CPT-96744 Level 3 Est. Patient 14:38:20 CDT Jacque Blas MD PhD [facility] CPT-99002 Level 4 Est. Patient 20:19:14 CDT Jacque Blas MD [facility] CPT-59717 Level 3 Est. Patient 15:41:32 CDT Jacque Blas MD [facility] CPT-03921 Level 3 Est. 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 Patient 21:41:26 BOARDING MACHINE OPERATOR Jacque Blas MD [facility] CPT-03159 Level 4 Est. Patient 14:43:47 BOARDING MACHINE OPERATOR Jacque Blas MD [facility] CPT-26608 Level 3 Est. Patient 20:16:54 BOARDING MACHINE OPERATOR Jacque Blas MD [facility] CPT-15013 Level 3 Est. Patient 13:31:37 CDT Jacque Blas MD [facility] CPT-74512 Level 3 New Patient 18:16:07 CDT Jacque Blas MD [facility] Procedures Code Procedure Name Date Entry Date Standard Description CPT-58700 LS spine comp w obliq 15:53:02 BOARDING MACHINE OPERATOR CPT-00648 C-Spine Min 4V 15:53:02 BOARDING MACHINE OPERATOR CPT-27460 UHCG (floor use only) 14:15:45 CDT CPT-24668 UHCG (floor use only) 14:09:15 CDT CPT-J7302 Mirena IUD 13:30:58 CDT CPT-53994 Insertion of IUD 13:30:58 CDT CPT-OV Office Visit 13:30:58 CDT CPT-01592 Visit 10:48:09 CDT CPT-55442 Visit 15:34:57 CDT CPT-17869 Visit 15:25:55 CDT CPT-09903 Visit 13:58:45 CDT CPT-29178 Sono OB comp > 14 weeks 16:57:22 CDT CPT-LR Lesion Removal 09:33:27 CDT CPT-84423 Visit 12:50:42 CDT CPT-09500 Visit 18:34:25 CDT CPT-000 Give Appropriate Tetanus Booster 09:16:14 CDT CPT-48541 Administration single or combination vaccine inc oral 11 :36:32 CDT CPT-72910 Tdap 11:36:32 CDT CPT-89225 Visit 09:16:14 CDT CPT-04895 Visit 13:35:24 CDT CPT-16314 Sono OB comp > 14 weeks 11:46:07 CDT CPT-13760 Visit 17:08:15 CDT CPT-25225 Sono OB comp <14 weeks 15:47:19 BOARDING MACHINE OPERATOR CPT-47131 Visit 13:28:37 CDT CPT-37914 Spec Collection and Handling Fee 12:41:37 CDT CPT-45106 Visit 12:41:07 CDT CPT-88793 Visit 18:48:53 CDT CPT-58979 Visit 16:25:17 CDT CPT-06706 Sono OB comp > 14 weeks 11:38:18 CDT CPT-22307 Visit 13:36:17 CDT CPT-69216 Visit 13:48:22 CDT
--- OUTSIDE RECORDS SUMMARY | 2019-01-13 20:46 | XMS REPORT | Clinical Summary ---
Author Author Admin, MARCO ANTONIO Gardiner [facility] Address Unknown Phone Allergies, Adverse Reactions, Alerts Allergy Name Reaction Description Start Date Severity Status Provider No Known Allergies Cecelia Russell [facility] Conditions or Problems Problem Name Problem Code [...] pill daily, for depression/anxiety 02/09 CITALOPRAM HYDROBROMIDE 55369262548 Active Jacque Blas MD PhD Active HYDROCODONE-ACETAMINOPHEN 7.5-325 MG TABS 1 four times a day as needed for pain HYDROCODONE-ACETAMINOPHEN 34908382244 Active Jacque Blas MD PhD Active HYDROCODONE-ACETAMINOPHEN 5-325 MG TABS 1 pill three times daily as needed for pain HYDROCODONE-ACETAMINOPHEN 44489276536 No Longer Active Jacque Blas MD PhD Active ROBAXIN 500 MG TAB 1-2 pills up to four times daily if needed for muscle spasms METHOCARBAMOL 49480671288 Active Jacque Blas MD PhD Active IBUPROFEN 600 MG TAB 1 pill four times daily, with food IBUPROFEN 86931570750 Active Jacque Blas MD PhD Active TRAMADOL HCL 50 MG TABS 1-2 tablets every 6 hours as needed for pain TRAMADOL HCL 03221760126 No Longer Active Jacque Blas MD PhD Active TYLENOL EXTRA STRENGTH 500 MG TABS 2 @ HS ACETAMINOPHEN 24251435343 No Longer Active Jacque Blas MD PhD Active SERTRALINE HCL 50 MG TABS 1 daily for depression SERTRALINE HCL 06785828362 No Longer Active Jacque Blas MD PhD Active BACTRIM DS 800-160 MG TAB 1 tab by mouth twice daily TRIMETHOPRIM-SULFAMETHOXAZOLE 68335643818 No Longer Active Eva Alejo APRN Active FLINSTONES GUMMIES OMEGA-3 DHA CHEW Take one by mouth daily PEDIATRIC MULTIPLE VIT-C-FA 11545169846 No Longer Active Jacque Blas MD PhD Active RANITIDINE HCL 150 MG CAPS 1 twice a day RANITIDINE HCL 42640946884 No Longer Active Jacque Blas MD PhD Active PNV-OMEGA 28-0.6-0.4-340 MG CAPS 1 pill by mouth daily PRENAT W/O A-EK-TOJDV-FA-OMEGA 27551247274 No Longer Active Jacque Blas MD PhD Active BACTRIM DS 800-160 MG TAB 1 tab by mouth twice daily TRIMETHOPRIM-SULFAMETHOXAZOLE 16937729722 No Longer Active Jacque Blas MD PhD Active METRONIDAZOLE 250 MG TABS 1 TID METRONIDAZOLE 28914055079 No Longer Active Jacque Blas MD PhD Active TRI-SPRINTEC 0.18/0.215/0.25 MG-35 MCG TABS 1 PO q Day NORGESTIM-ETH ESTRAD TRIPHASIC 03183250311 No Longer Active Jacque Blas MD PhD Active ALPRAZOLAM 0.25 MG TABS 1/2 tab to 1 tab PO TID PRN ALPRAZOLAM 39358673772 No Longer Active Jacque Blas MD PhD Active FLUOXETINE HCL 10 MG CAPS 2 PO q AM FLUOXETINE HCL 72091308824 No Longer Active Jacque Blas MD PhD Active ALPRAZOLAM 0.25 MG TABS 1/2 tab to 1 tab PO TID PRN ALPRAZOLAM 0.25 MG TABS 134084 ALPRAZOLAM Inactive TRI-SPRINTEC 0.18/0.215/0.25 MG-35 MCG TABS 1 PO q Day TRI-SPRINTEC 0.18/0.215/0.25 MG-35 MCG TABS 805929 NORGESTIM-ETH ESTRAD TRIPHASIC Inactive PNV-OMEGA 28-0.6-0.4-340 MG CAPS 1 pill by mouth daily PNV-OMEGA 28-0.6-0.4-340 MG CAPS PRENAT W/O [id number]-MZUQT-FA-OMEGA Inactive RANITIDINE HCL 150 MG CAPS 1 twice a day RANITIDINE HCL 150 MG CAPS 004618 RANITIDINE HCL Inactive FLINSTONES GUMMIES OMEGA-3 DHA CHEW Take one by mouth daily FLINSTONES GUMMIES OMEGA-3 DHA CHEW PEDIATRIC MULTIPLE VIT-C-FA Inactive SERTRALINE HCL 50 MG TABS 1 daily for depression SERTRALINE HCL 50 MG TABS 784327 SERTRALINE HCL Inactive TYLENOL EXTRA STRENGTH 500 MG TABS 2 @ HS TYLENOL EXTRA STRENGTH 500 MG TABS 976815 ACETAMINOPHEN Inactive TRAMADOL HCL 50 MG TABS 1-2 tablets every 6 hours as needed for pain TRAMADOL HCL 50 MG TABS 074104 TRAMADOL HCL Inactive HYDROCODONE-ACETAMINOPHEN 5-325 MG TABS 1 pill three times daily as needed for pain HYDROCODONE-ACETAMINOPHEN 5-325 MG TABS 211693 HYDROCODONE-ACETAMINOPHEN Inactive FLUOXETINE HCL 10 MG CAPS 2 PO q AM FLUOXETINE HCL 10 MG CAPS 401181 FLUOXETINE HCL Inactive METRONIDAZOLE 250 MG TABS 1 TID METRONIDAZOLE 250 MG TABS 648007 METRONIDAZOLE Inactive BACTRIM DS 800-160 MG TAB 1 tab by mouth twice daily BACTRIM DS 800-160 MG TAB TRIMETHOPRIM-SULFAMETHOXAZOLE Inactive BACTRIM DS 800-160 MG TAB 1 tab by mouth twice daily BACTRIM DS 800-160 MG TAB TRIMETHOPRIM-SULFAMETHOXAZOLE Inactive Advance Directives Directive Description Start Date PERMISSION TO SHARE Immunizations Vaccine Administration Date Value Standard Description Adacel immunization Adacel [[id number]] tetanus toxoid, reduced diphtheria toxoid, and acellular [...] serum NO ANTIBODIES DETECTED Lab Report: Chlamydia/GC APTIMA/58173 - Lab chlamydia DNA probe NOT DETECTED NOT DETECTED Lab Report: Chlamydia/GC APTIMA/95190 - Microbiology Neisseria gonorrhoeae DNA probe NOT [...] negative Encounters Code Encounter Date Provider Facility CPT-11613 Level 3 Est. Patient 15:41:32 CDT Jacque Blas MD [facility] CPT-25775 Level 3 Est. 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 Patient 21:41:26 POULTRY PINNER Jacque Blas MD [facility] CPT-03179 Level 4 Est. Patient 14:43:47 POULTRY PINNER Jacque Blas MD [facility] CPT-56913 Level 3 Est. Patient 20:16:54 POULTRY PINNER Jacque Blas MD [facility] CPT-55896 Level 3 Est. Patient 13:31:37 CDT Jacque Blas MD [facility] CPT-17170 Level 3 New Patient 18:16:07 CDT Jacque Blas MD [facility] Procedures Code Procedure Name Date Entry Date Standard Description CPT-14934 LS spine comp w obliq 15:53:02 POULTRY PINNER CPT-09484 C-Spine Min 4V 15:53:02 POULTRY PINNER CPT-97461 UHCG (floor use only) 14:15:45 CDT CPT-09826 UHCG (floor use only) 14:09:15 CDT CPT-J7302 Mirena IUD 13:30:58 CDT CPT-46102 Insertion of IUD 13:30:58 CDT CPT-OV Office Visit 13:30:58 CDT CPT-39597 Visit 10:48:09 CDT CPT-86631 Visit 15:34:57 CDT CPT-89737 Visit 15:25:55 CDT CPT-64506 Visit 13:58:45 CDT CPT-43039 Sono OB comp > 14 weeks 16:57:22 CDT CPT-LR Lesion Removal 09:33:27 CDT CPT-03049 Visit 12:50:42 CDT CPT-51229 Visit 18:34:25 CDT CPT-000 Give Appropriate Tetanus Booster 09:16:14 CDT CPT-55795 Administration single or combination vaccine inc oral 11 :36:32 CDT CPT-45047 Tdap 11:36:32 CDT CPT-78976 Visit 09:16:14 CDT CPT-47906 Visit 13:35:24 CDT CPT-25250 Sono OB comp > 14 weeks 11:46:07 CDT CPT-32101 Visit 17:08:15 CDT CPT-76999 Sono OB comp <14 weeks 15:47:19 POULTRY PINNER CPT-73187 Visit 13:28:37 CDT CPT-03193 Spec Collection and Handling Fee 12:41:37 CDT CPT-15306 Visit 12:41:07 CDT CPT-19595 Visit 18:48:53 CDT CPT-89353 Visit 16:25:17 CDT CPT-15208 Sono OB comp > 14 weeks 11:38:18 CDT CPT-15699 Visit 13:36:17 CDT CPT-43114 Visit 13:48:22 CDT
--- OUTSIDE RECORDS SUMMARY | 2019-01-13 20:46 | XMS REPORT | Clinical Summary ---
[...] daily if needed for muscle spasms METHOCARBAMOL [id number] No Longer Active Jacque Blas MD PhD Active CITALOPRAM HYDROBROMIDE 10 MG TABS 1 pill daily, for depression/anxiety 02/09 CITALOPRAM HYDROBROMIDE 69642068947 No Longer Active Jacque Blas MD PhD Active HYDROCODONE-ACETAMINOPHEN 7.5-325 MG TABS 1 four times a day as needed for pain HYDROCODONE-ACETAMINOPHEN 41939756000 Active Bruce Vicente MD Active HYDROCODONE-ACETAMINOPHEN 5-325 MG TABS 1 pill three times daily as needed for pain HYDROCODONE-ACETAMINOPHEN 76005391576 No Longer Active Jacque Blas MD PhD Active IBUPROFEN 600 MG TAB 1 pill four times daily, with food IBUPROFEN 12780307538 Active Jacque Blas MD PhD Active TRAMADOL HCL 50 MG TABS 1-2 tablets every 6 hours as needed for pain TRAMADOL HCL 67089583144 No Longer Active Jacque Blas MD PhD Active TYLENOL EXTRA STRENGTH 500 MG TABS 2 @ HS ACETAMINOPHEN 85922525661 No Longer Active Jacque Blas MD PhD Active SERTRALINE HCL 50 MG TABS 1 daily for depression SERTRALINE HCL 09289026327 No Longer Active Jacque Blas MD PhD Active BACTRIM DS 800-160 MG TAB 1 tab by mouth twice daily TRIMETHOPRIM-SULFAMETHOXAZOLE 11202230736 No Longer Active Eva Alejo APRN Active FLINSTONES GUMMIES OMEGA-3 DHA CHEW Take one by mouth daily PEDIATRIC MULTIPLE VIT-C-FA 07588012419 No Longer Active Jacque Blas MD PhD Active RANITIDINE HCL 150 MG CAPS 1 twice a day RANITIDINE HCL 57212482345 No Longer Active Jacque Blas MD PhD Active PNV-OMEGA 28-0.6-0.4-340 MG CAPS 1 pill by mouth daily PRENAT W/O V-VJ-QJJYG-FA-OMEGA 96710225736 No Longer Active Jacque Blas MD PhD Active BACTRIM DS 800-160 MG TAB 1 tab by mouth twice daily TRIMETHOPRIM-SULFAMETHOXAZOLE 97349780105 No Longer Active Jacque Blas MD PhD Active METRONIDAZOLE 250 MG TABS 1 TID METRONIDAZOLE 01829003213 No Longer Active Jacque Blas MD PhD Active TRI-SPRINTEC 0.18/0.215/0.25 MG-35 MCG TABS 1 PO q Day NORGESTIM-ETH ESTRAD TRIPHASIC 70619979751 No Longer Active Jacque Blas MD PhD Active ALPRAZOLAM 0.25 MG TABS 1/2 tab to 1 tab PO TID PRN ALPRAZOLAM 02296866776 No Longer Active Jacque Blas MD PhD Active FLUOXETINE HCL 10 MG CAPS 2 PO q AM FLUOXETINE HCL 01685374240 No Longer Active Jacque Blas MD PhD Active ALPRAZOLAM 0.25 MG TABS 1/2 tab to 1 tab PO TID PRN ALPRAZOLAM 0.25 MG TABS 773857 ALPRAZOLAM Inactive TRI-SPRINTEC 0.18/0.215/0.25 MG-35 MCG TABS 1 PO q Day TRI-SPRINTEC 0.18/0.215/0.25 MG-35 MCG TABS 475935 NORGESTIM-ETH ESTRAD TRIPHASIC Inactive PNV-OMEGA 28-0.6-0.4-340 MG CAPS 1 pill by mouth daily PNV-OMEGA 28-0.6-0.4-340 MG CAPS PRENAT W/O [id number]-FA-OMEGA Inactive RANITIDINE HCL 150 MG CAPS 1 twice a day RANITIDINE HCL 150 MG CAPS 910314 RANITIDINE HCL Inactive FLINSTONES GUMMIES OMEGA-3 DHA CHEW Take one by mouth daily FLINSTONES GUMMIES OMEGA-3 DHA CHEW PEDIATRIC MULTIPLE VIT-C-FA Inactive SERTRALINE HCL 50 MG TABS 1 daily for depression SERTRALINE HCL 50 MG TABS 872497 SERTRALINE HCL Inactive TYLENOL EXTRA STRENGTH 500 MG TABS 2 @ HS TYLENOL EXTRA STRENGTH 500 MG TABS 309118 ACETAMINOPHEN Inactive TRAMADOL HCL 50 MG TABS 1-2 tablets every 6 hours as needed for pain TRAMADOL HCL 50 MG TABS 822429 TRAMADOL HCL Inactive HYDROCODONE-ACETAMINOPHEN 5-325 MG TABS 1 pill three times daily as needed for pain HYDROCODONE-ACETAMINOPHEN 5-325 MG TABS 492162 HYDROCODONE-ACETAMINOPHEN Inactive CITALOPRAM HYDROBROMIDE 10 MG TABS 1 pill daily, for depression/anxiety 02/09 CITALOPRAM HYDROBROMIDE 10 MG TABS 646548 CITALOPRAM HYDROBROMIDE Inactive ROBAXIN 500 MG TAB 1-2 pills up to four times daily if needed for muscle spasms ROBAXIN 500 MG TAB 379756 METHOCARBAMOL Inactive FLUOXETINE HCL 10 MG CAPS 2 PO q AM FLUOXETINE HCL 10 MG CAPS 684938 FLUOXETINE HCL Inactive METRONIDAZOLE 250 MG TABS 1 TID METRONIDAZOLE 250 MG TABS 563593 METRONIDAZOLE Inactive BACTRIM DS 800-160 MG TAB [...] reduced Diphtheria, and acellular Pertussis Immunization) Adacel [[id number]] tetanus toxoid, reduced diphtheria toxoid, and acellular [...] Value Unit Range Description Lab Report: Chlamydia/GC APTIMA/86452 - Lab chlamydia DNA probe NOT DETECTED NOT DETECTED chlamydia DNA probe NOT DETECTED NOT DETECTED Lab Report: Chlamydia/GC APTIMA/93255 - Microbiology Neisseria gonorrhoeae DNA probe NOT [...] negative Encounters Code Encounter Date Provider Facility CPT-39810 Level 4 Est. Patient 20:19:14 CDT Jacque Blas MD [facility] CPT-64736 Level 3 Est. Patient 15:41:32 CDT Jacque Blas MD [facility] CPT-35997 Level 3 Est. Patient 18:02:00 CRATE TIER Jacque Blas MD PhD [facility] CPT-24161 Level 3 Est. Patient 21:41:26 CRATE TIER Jacque Blas MD PhD [facility] CPT-62041 Level 4 Est. Patient 14:43:47 CRATE TIER Jacque Blas MD [facility] [place]-[id number] Level 3 Est. Patient 20:16:54 CRATE TIER Jacque Blas MD PhD [facility] CPT-35776 Level 3 Est. Patient 13:31:37 CDT Jacque Blas MD [facility] [place]-09130 Level 3 New Patient 18:16:07 CDT Jacque Blas MD PhD [facility] Procedures Code Procedure Name Date Entry Date Standard Description CPT-75514 LS spine comp w obliq 15:53:02 CRATE TIER CPT-07046 C-Spine Min 4V 15:53:02 CRATE TIER CPT-12464 UHCG (floor use only) 14:15:45 CDT CPT-44208 UHCG (floor use only) 14:09:15 CDT CPT-J7302 Mirena IUD 13:30:58 CDT CPT-47870 Insertion of IUD 13:30:58 CDT CPT-OV Office Visit 13:30:58 CDT CPT-13716 Visit 10:48:09 CDT CPT-72676 Visit 15:34:57 CDT CPT-90219 Visit 15:25:55 CDT CPT-92057 Visit 13:58:45 CDT CPT-02130 Sono OB comp > 14 weeks 16:57:22 CDT CPT-LR Lesion Removal 09:33:27 CDT CPT-02475 Visit 12:50:42 CDT CPT-13077 Visit 18:34:25 CDT CPT-000 Give Appropriate Tetanus Booster 09:16:14 CDT CPT-03652 Administration single or combination vaccine inc oral 11 :36:32 CDT CPT-48009 Tdap 11:36:32 CDT CPT-12616 Visit 09:16:14 CDT CPT-29376 Visit 13:35:24 CDT CPT-30783 Sono OB comp > 14 weeks 11:46:07 CDT CPT-72365 Visit 17:08:15 CDT CPT-83988 Sono OB comp <14 weeks 15:47:19 CRATE TIER CPT-48902 Visit 13:28:37 CDT CPT-69133 Spec Collection and Handling Fee 12:41:37 CDT CPT-84720 Visit 12:41:07 CDT CPT-80165 Visit 18:48:53 CDT CPT-90493 Visit 16:25:17 CDT CPT-65961 Sono OB comp > 14 weeks 11:38:18 CDT CPT-74804 Visit 13:36:17 CDT CPT-41660 Visit 13:48:22 CDT
--- OUTSIDE RECORDS SUMMARY | 2019-01-13 20:47 | XMS REPORT | Clinical Summary ---
Author Author Admin, MARCO ANTONIO Gardiner [facility] Address Unknown Phone Unavailable Allergies, [...] weeks, then 2 pills daily 07/26 LAMOTRIGINE 55388015052 Active Jacque Blas MD PhD Active ROBAXIN 500 MG TAB 1-2 pills up to four times daily if needed for muscle spasms METHOCARBAMOL 60212992307 No Longer Active Jacque Blas MD PhD Active CITALOPRAM HYDROBROMIDE 10 MG TABS 1 pill daily, for depression/anxiety 02/09 CITALOPRAM HYDROBROMIDE 29537919026 No Longer Active Jacque Blas MD PhD Active HYDROCODONE-ACETAMINOPHEN 7.5-325 MG TABS 1 four times a day as needed for pain HYDROCODONE-ACETAMINOPHEN 78857353300 Active Jacque Blas MD PhD Active HYDROCODONE-ACETAMINOPHEN 5-325 MG TABS 1 pill three times daily as needed for pain HYDROCODONE-ACETAMINOPHEN 49667889540 No Longer Active Jacque Blas MD PhD Active IBUPROFEN 600 MG TAB 1 pill four times daily, with food IBUPROFEN 20656098212 Active Jcaque Blas MD PhD Active TRAMADOL HCL 50 MG TABS 1-2 tablets every 6 hours as needed for pain TRAMADOL HCL 37202219599 No Longer Active Jacque Blas MD PhD Active TYLENOL EXTRA STRENGTH 500 MG TABS 2 @ HS ACETAMINOPHEN 90041177319 No Longer Active Jacque Blas MD PhD Active SERTRALINE HCL 50 MG TABS 1 daily for depression SERTRALINE HCL 45549985961 No Longer Active Jacque Blas MD PhD Active BACTRIM DS 800-160 MG TAB 1 tab by mouth twice daily TRIMETHOPRIM-SULFAMETHOXAZOLE 50732561468 No Longer Active Eva Alejo APRN Active FLINSTONES GUMMIES OMEGA-3 DHA CHEW Take one by mouth daily PEDIATRIC MULTIPLE VIT-C-FA 76707703626 No Longer Active Jacque Blas MD PhD Active RANITIDINE HCL 150 MG CAPS 1 twice a day RANITIDINE HCL 37980075175 No Longer Active Jacque Blas MD PhD Active PNV-OMEGA 28-0.6-0.4-340 MG CAPS 1 pill by mouth daily PRENAT W/O C-AO-IXYJI-FA-OMEGA 44402318913 No Longer Active Jacque Blas MD PhD Active BACTRIM DS 800-160 MG TAB 1 tab by mouth twice daily TRIMETHOPRIM-SULFAMETHOXAZOLE 46087174259 No Longer Active Jacque Blas MD PhD Active METRONIDAZOLE 250 MG TABS 1 TID METRONIDAZOLE 77062746568 No Longer Active Jacque Blas MD PhD Active TRI-SPRINTEC 0.18/0.215/0.25 MG-35 MCG TABS 1 PO q Day NORGESTIM-ETH ESTRAD TRIPHASIC 66056790797 No Longer Active Jacque Blas MD PhD Active ALPRAZOLAM 0.25 MG TABS 1/2 tab to 1 tab PO TID PRN ALPRAZOLAM 31310508945 No Longer Active Jacque Blas MD PhD Active FLUOXETINE HCL 10 MG CAPS 2 PO q AM FLUOXETINE HCL 50329636018 No Longer Active Jacque Blas MD PhD Active ALPRAZOLAM 0.25 MG TABS 1/2 tab to 1 tab PO TID PRN ALPRAZOLAM 0.25 MG TABS 458024 ALPRAZOLAM Inactive TRI-SPRINTEC 0.18/0.215/0.25 MG-35 MCG TABS 1 PO q Day TRI-SPRINTEC 0.18/0.215/0.25 MG-35 MCG TABS 176280 NORGESTIM-ETH ESTRAD TRIPHASIC Inactive PNV-OMEGA 28-0.6-0.4-340 MG CAPS 1 pill by mouth daily PNV-OMEGA 28-0.6-0.4-340 MG CAPS PRENAT W/O O-BH-[id number]-FA-OMEGA Inactive RANITIDINE HCL 150 MG CAPS 1 twice a day RANITIDINE HCL 150 MG CAPS 144246 RANITIDINE HCL Inactive FLINSTONES GUMMIES OMEGA-3 DHA CHEW Take one by mouth daily FLINSTONES GUMMIES OMEGA-3 DHA CHEW PEDIATRIC MULTIPLE VIT-C-FA Inactive SERTRALINE HCL 50 MG TABS 1 daily for depression SERTRALINE HCL 50 MG TABS 539014 SERTRALINE HCL Inactive TYLENOL EXTRA STRENGTH 500 MG TABS 2 @ HS TYLENOL EXTRA STRENGTH 500 MG TABS 153206 ACETAMINOPHEN Inactive TRAMADOL HCL 50 MG TABS 1-2 tablets every 6 hours as needed for pain TRAMADOL HCL 50 MG TABS 776665 TRAMADOL HCL Inactive HYDROCODONE-ACETAMINOPHEN 5-325 MG TABS 1 pill three times daily as needed for pain HYDROCODONE-ACETAMINOPHEN 5-325 MG TABS 987624 HYDROCODONE-ACETAMINOPHEN Inactive CITALOPRAM HYDROBROMIDE 10 MG TABS 1 pill daily, for depression/anxiety 02/09 CITALOPRAM HYDROBROMIDE 10 MG TABS 319428 CITALOPRAM HYDROBROMIDE Inactive ROBAXIN 500 MG TAB 1-2 pills up to four times daily if needed for muscle spasms ROBAXIN 500 MG TAB 184486 METHOCARBAMOL Inactive FLUOXETINE HCL 10 MG CAPS 2 PO q AM FLUOXETINE HCL 10 MG CAPS 784108 FLUOXETINE HCL Inactive METRONIDAZOLE 250 MG TABS 1 TID METRONIDAZOLE 250 MG TABS 426695 METRONIDAZOLE Inactive BACTRIM DS 800-160 MG TAB [...] reduced Diphtheria, and acellular Pertussis Immunization) Adacel [[id number]] tetanus toxoid, reduced diphtheria toxoid, and acellular [...] Value Unit Range Description Lab Report: Chlamydia/GC APTIMA/47434 - Lab chlamydia DNA probe NOT DETECTED NOT DETECTED chlamydia DNA probe NOT DETECTED NOT DETECTED Lab Report: Chlamydia/GC APTIMA/38154 - Microbiology Neisseria gonorrhoeae DNA probe NOT [...] negative Encounters Code Encounter Date Provider Facility CPT-41020 Level 3 Est. Patient 14:38:20 CDT Jacque Blas MD PhD [facility] CPT-99241 Level 4 Est. Patient 20:19:14 CDT Jacque Blas MD PhD [facility] CPT-04044 Level 3 Est. Patient 15:41:32 CDT Jacque Blas MD PhD [facility] CPT-71647 Level 3 Est. Patient 18:02:00 TELEVISION REPORTER Jacque Blas MD [facility] CPT-01625 Level 3 Est. Patient 21:41:26 TELEVISION REPORTER Jacque Blas MD [facility] CPT-01197 Level 4 Est. Patient 14:43:47 TELEVISION REPORTER Jacque Blas MD [facility] CPT-20889 Level 3 Est. Patient 20:16:54 TELEVISION REPORTER Jacque Blas MD [facility] CPT-71493 Level 3 Est. Patient 13:31:37 CDT Jacque Blas MD [facility] CPT-23745 Level 3 New Patient 18:16:07 CDT Jacque Blas MD [facility] Procedures Code Procedure Name Date Entry Date Standard Description CPT-93588 LS spine comp w obliq 15:53:02 TELEVISION REPORTER CPT-88408 C-Spine Min 4V 15:53:02 TELEVISION REPORTER CPT-08751 UHCG (floor use only) 14:15:45 CDT CPT-57273 UHCG (floor use only) 14:09:15 CDT CPT-J7302 Mirena IUD 13:30:58 CDT CPT-56463 Insertion of IUD 13:30:58 CDT CPT-OV Office Visit 13:30:58 CDT CPT-83980 Visit 10:48:09 CDT CPT-42646 Visit 15:34:57 CDT CPT-64843 Visit 15:25:55 CDT CPT-44783 Visit 13:58:45 CDT CPT-65629 Sono OB comp > 14 weeks 16:57:22 CDT CPT-LR Lesion Removal 09:33:27 CDT CPT-38566 Visit 12:50:42 CDT CPT-17750 Visit 18:34:25 CDT CPT-000 Give Appropriate Tetanus Booster 09:16:14 CDT CPT-09307 Administration single or combination vaccine inc oral 11 :36:32 CDT CPT-95511 Tdap 11:36:32 CDT CPT-41513 Visit 09:16:14 CDT CPT-53602 Visit 13:35:24 CDT CPT-55365 Sono OB comp > 14 weeks 11:46:07 CDT CPT-83522 Visit 17:08:15 CDT CPT-23152 Sono OB comp <14 weeks 15:47:19 TELEVISION REPORTER CPT-76359 Visit 13:28:37 CDT CPT-27876 Spec Collection and Handling Fee 12:41:37 CDT CPT-51443 Visit 12:41:07 CDT CPT-74108 Visit 18:48:53 CDT CPT-47419 Visit 16:25:17 CDT CPT-98180 Sono OB comp > 14 weeks 11:38:18 CDT CPT-24031 Visit 13:36:17 CDT CPT-59046 Visit 13:48:22 CDT
--- OUTSIDE RECORDS SUMMARY | 2019-01-13 20:48 | XMS REPORT | Clinical Summary ---
Author Author Admin, MARCO ANTONIO Gardiner [facility] Address Unknown Phone Allergies, Adverse Reactions, Alerts Allergy Name Reaction Description Start Date Severity Status Provider No Known Allergies [facility] Conditions or Problems Problem Name Problem [...] condition or complication BACTERIAL VAGINITIS 616.10 Resolved Jcaque Blas MD PhD Vaginitis and vulvovaginitis, unspecified [...] pill daily, for depression/anxiety 02/09 CITALOPRAM HYDROBROMIDE 64202458314 Active Jacque Blas MD PhD Active HYDROCODONE-ACETAMINOPHEN 7.5-325 MG TABS 1 four times a day as needed for pain HYDROCODONE-ACETAMINOPHEN 03056134998 Active Jacque Blas MD PhD Active HYDROCODONE-ACETAMINOPHEN 5-325 MG TABS 1 pill three times daily as needed for pain HYDROCODONE-ACETAMINOPHEN 20637311832 No Longer Active Jacque Blas MD PhD Active ROBAXIN 500 MG TAB 1-2 pills up to four times daily if needed for muscle spasms METHOCARBAMOL 64696118259 Active Jacque Blas MD PhD Active IBUPROFEN 600 MG TAB 1 pill four times daily, with food IBUPROFEN 47260414615 Active Jacque Blas MD PhD Active TRAMADOL HCL 50 MG TABS 1-2 tablets every 6 hours as needed for pain TRAMADOL HCL 63200171631 No Longer Active Jacque Blas MD PhD Active TYLENOL EXTRA STRENGTH 500 MG TABS 2 @ HS ACETAMINOPHEN 36878943780 No Longer Active Jacque Blas MD PhD Active SERTRALINE HCL 50 MG TABS 1 daily for depression SERTRALINE HCL 68476189769 No Longer Active Jacque Blas MD PhD Active BACTRIM DS 800-160 MG TAB 1 tab by mouth twice daily TRIMETHOPRIM-SULFAMETHOXAZOLE 21287451656 No Longer Active Eva Alejo APRN Active FLINSTONES GUMMIES OMEGA-3 DHA CHEW Take one by mouth daily PEDIATRIC MULTIPLE VIT-C-FA 60661390149 No Longer Active Jacque Blas MD PhD Active RANITIDINE HCL 150 MG CAPS 1 twice a day RANITIDINE HCL 56249312909 No Longer Active Jacque Blas MD PhD Active PNV-OMEGA 28-0.6-0.4-340 MG CAPS 1 pill by mouth daily PRENAT W/O M-CU-AMOYF-FA-OMEGA 11266010622 No Longer Active Jacque Blas MD PhD Active BACTRIM DS 800-160 MG TAB 1 tab by mouth twice daily TRIMETHOPRIM-SULFAMETHOXAZOLE 18877452088 No Longer Active Jacque Blas MD PhD Active METRONIDAZOLE 250 MG TABS 1 TID METRONIDAZOLE 04973471102 No Longer Active Jacque Blas MD PhD Active TRI-SPRINTEC 0.18/0.215/0.25 MG-35 MCG TABS 1 PO q Day NORGESTIM-ETH ESTRAD TRIPHASIC 05352506643 No Longer Active Jacque Blas MD PhD Active ALPRAZOLAM 0.25 MG TABS 1/2 tab to 1 tab PO TID PRN ALPRAZOLAM 93128990879 No Longer Active Jacque Blas MD PhD Active FLUOXETINE HCL 10 MG CAPS 2 PO q AM FLUOXETINE HCL 56507599969 No Longer Active Jacque Blas MD PhD Active ALPRAZOLAM 0.25 MG TABS 1/2 tab to 1 tab PO TID PRN ALPRAZOLAM 0.25 MG TABS 834995 ALPRAZOLAM Inactive TRI-SPRINTEC 0.18/0.215/0.25 MG-35 MCG TABS 1 PO q Day TRI-SPRINTEC 0.18/0.215/0.25 MG-35 MCG TABS 450479 NORGESTIM-ETH ESTRAD TRIPHASIC Inactive PNV-OMEGA 28-0.6-0.4-340 MG CAPS 1 pill by mouth daily PNV-OMEGA 28-0.6-0.4-340 MG CAPS PRENAT W/O C-BG-ILKOE-FA-OMEGA Inactive RANITIDINE HCL 150 MG CAPS 1 twice a day RANITIDINE HCL 150 MG CAPS 865053 RANITIDINE HCL Inactive FLINSTONES GUMMIES OMEGA-3 DHA CHEW Take one by mouth daily FLINSTONES GUMMIES OMEGA-3 DHA CHEW PEDIATRIC MULTIPLE VIT-C-FA Inactive SERTRALINE HCL 50 MG TABS 1 daily for depression SERTRALINE HCL 50 MG TABS 205905 SERTRALINE HCL Inactive TYLENOL EXTRA STRENGTH 500 MG TABS 2 @ HS TYLENOL EXTRA STRENGTH 500 MG TABS 685600 ACETAMINOPHEN Inactive TRAMADOL HCL 50 MG TABS 1-2 tablets every 6 hours as needed for pain TRAMADOL HCL 50 MG TABS 544011 TRAMADOL HCL Inactive HYDROCODONE-ACETAMINOPHEN 5-325 MG TABS 1 pill three times daily as needed for pain HYDROCODONE-ACETAMINOPHEN 5-325 MG TABS 562973 HYDROCODONE-ACETAMINOPHEN Inactive FLUOXETINE HCL 10 MG CAPS 2 PO q AM FLUOXETINE HCL 10 MG CAPS 544917 FLUOXETINE HCL Inactive METRONIDAZOLE 250 MG TABS 1 TID METRONIDAZOLE 250 MG TABS 340874 METRONIDAZOLE Inactive BACTRIM DS 800-160 MG TAB 1 tab by mouth twice daily BACTRIM DS 800-160 MG TAB TRIMETHOPRIM-SULFAMETHOXAZOLE Inactive BACTRIM DS 800-160 MG TAB 1 tab by mouth twice daily BACTRIM DS 800-160 MG TAB TRIMETHOPRIM-SULFAMETHOXAZOLE Inactive Advance Directives Directive Description Start Date PERMISSION TO SHARE Immunizations Vaccine Administration Date Value Standard Description Adacel immunization Adacel [[id number]] tetanus toxoid, reduced diphtheria toxoid, and acellular [...] serum NO ANTIBODIES DETECTED Lab Report: Chlamydia/GC APTIMA/33490 - Lab chlamydia DNA probe NOT DETECTED NOT DETECTED Lab Report: Chlamydia/GC APTIMA/12161 - Microbiology Neisseria gonorrhoeae DNA probe NOT [...] negative Encounters Code Encounter Date Provider Facility CPT-84691 Level 3 Est. Patient 15:41:32 CDT Jacque Blas MD [facility] CPT-81827 Level 3 Est. Patient 18:02:00 MISSILE MECHANIC Jacque Blas MD [facility] CPT-24029 Level 3 Est. Patient 21:41:26 MISSILE MECHANIC Jacque Blas MD [facility] CPT-16359 Level 4 Est. Patient 14:43:47 MISSILE MECHANIC Jacque Blas MD [facility] CPT-29310 Level 3 Est. Patient 20:16:54 MISSILE MECHANIC Jacque Blas MD [facility] CPT-50358 Level 3 Est. Patient 13:31:37 CDT Jacque Blas MD [facility] CPT-08072 Level 3 New Patient 18:16:07 CDT Jacque Blas MD [facility] Procedures Code Procedure Name Date Entry Date Standard Description CPT-53261 LS spine comp w obliq 15:53:02 MISSILE MECHANIC CPT-49952 C-Spine Min 4V 15:53:02 MISSILE MECHANIC CPT-54707 UHCG (floor use only) 14:15:45 CDT CPT-28170 UHCG (floor use only) 14:09:15 CDT CPT-J7302 Mirena IUD 13:30:58 CDT CPT-68851 Insertion of IUD 13:30:58 CDT CPT-OV Office Visit 13:30:58 CDT CPT-41294 Visit 10:48:09 CDT CPT-41901 Visit 15:34:57 CDT CPT-81946 Visit 15:25:55 CDT CPT-97750 Visit 13:58:45 CDT CPT-72743 Sono OB comp > 14 weeks 16:57:22 CDT CPT-LR Lesion Removal 09:33:27 CDT CPT-22410 Visit 12:50:42 CDT CPT-39624 Visit 18:34:25 CDT CPT-000 Give Appropriate Tetanus Booster 09:16:14 CDT CPT-84779 Administration single or combination vaccine inc oral 11 :36:32 CDT CPT-48427 Tdap 11:36:32 CDT CPT-19238 Visit 09:16:14 CDT CPT-65836 Visit 13:35:24 CDT CPT-10342 Sono OB comp > 14 weeks 11:46:07 CDT CPT-95118 Visit 17:08:15 CDT CPT-64637 Sono OB comp <14 weeks 15:47:19 MISSILE MECHANIC CPT-80408 Visit 13:28:37 CDT CPT-96428 Spec Collection and Handling Fee 12:41:37 CDT CPT-47025 Visit 12:41:07 CDT CPT-05586 Visit 18:48:53 CDT CPT-42353 Visit 16:25:17 CDT CPT-59747 Sono OB comp > 14 weeks 11:38:18 CDT CPT-90130 Visit 13:36:17 CDT CPT-06549 Visit 13:48:22 CDT
--- OUTSIDE RECORDS SUMMARY | 2019-01-13 20:48 | XMS REPORT | Clinical Summary ---
Author Author Admin, MARCO ANTONIO Gardiner [facility] Address Unknown Phone Unavailable Allergies, [...] weeks, then 2 pills daily 07/26 LAMOTRIGINE [id number] Active Jacque Blas MD PhD Active ROBAXIN 500 MG TAB 1-2 pills up to four times daily if needed for muscle spasms METHOCARBAMOL 34096125011 No Longer Active Jacque Blas MD PhD Active CITALOPRAM HYDROBROMIDE 10 MG TABS 1 pill daily, for depression/anxiety 02/09 CITALOPRAM HYDROBROMIDE 88543168906 No Longer Active Jacque Blas MD PhD Active HYDROCODONE-ACETAMINOPHEN 7.5-325 MG TABS 1 four times a day as needed for pain HYDROCODONE-ACETAMINOPHEN 58785989316 Active Jacque Blas MD PhD Active HYDROCODONE-ACETAMINOPHEN 5-325 MG TABS 1 pill three times daily as needed for pain HYDROCODONE-ACETAMINOPHEN 23441102990 No Longer Active Jacque Blas MD PhD Active IBUPROFEN 600 MG TAB 1 pill four times daily, with food IBUPROFEN 93582412379 Active Jacque Blas MD PhD Active TRAMADOL HCL 50 MG TABS 1-2 tablets every 6 hours as needed for pain TRAMADOL HCL 56979327607 No Longer Active Jacque Blas MD PhD Active TYLENOL EXTRA STRENGTH 500 MG TABS 2 @ HS ACETAMINOPHEN 89815075163 No Longer Active Jacque Blas MD PhD Active SERTRALINE HCL 50 MG TABS 1 daily for depression SERTRALINE HCL 44464564841 No Longer Active Jacque Blas MD PhD Active BACTRIM DS 800-160 MG TAB 1 tab by mouth twice daily TRIMETHOPRIM-SULFAMETHOXAZOLE 09372975845 No Longer Active Eva Alejo APRN Active FLINSTONES GUMMIES OMEGA-3 DHA CHEW Take one by mouth daily PEDIATRIC MULTIPLE VIT-C-FA 10556451950 No Longer Active Jacque Blas MD PhD Active RANITIDINE HCL 150 MG CAPS 1 twice a day RANITIDINE HCL 77778100479 No Longer Active Jacque Blas MD PhD Active PNV-OMEGA 28-0.6-0.4-340 MG CAPS 1 pill by mouth daily PRENAT W/O F-TH-DTYBZ-FA-OMEGA 49151149751 No Longer Active Jacque Blas MD PhD Active BACTRIM DS 800-160 MG TAB 1 tab by mouth twice daily TRIMETHOPRIM-SULFAMETHOXAZOLE 94727178758 No Longer Active Jacque Blas MD PhD Active METRONIDAZOLE 250 MG TABS 1 TID METRONIDAZOLE 08847569809 No Longer Active Jacque Blas MD PhD Active TRI-SPRINTEC 0.18/0.215/0.25 MG-35 MCG TABS 1 PO q Day NORGESTIM-ETH ESTRAD TRIPHASIC 96913109933 No Longer Active Jacque Blas MD PhD Active ALPRAZOLAM 0.25 MG TABS 1/2 tab to 1 tab PO TID PRN ALPRAZOLAM 47205975645 No Longer Active Jacque Blas MD PhD Active FLUOXETINE HCL 10 MG CAPS 2 PO q AM FLUOXETINE HCL 28518651708 No Longer Active Jacque Blas MD PhD Active ALPRAZOLAM 0.25 MG TABS 1/2 tab to 1 tab PO TID PRN ALPRAZOLAM 0.25 MG TABS 868825 ALPRAZOLAM Inactive TRI-SPRINTEC 0.18/0.215/0.25 MG-35 MCG TABS 1 PO q Day TRI-SPRINTEC 0.18/0.215/0.25 MG-35 MCG TABS 701428 NORGESTIM-ETH ESTRAD TRIPHASIC Inactive PNV-OMEGA 28-0.6-0.4-340 MG CAPS 1 pill by mouth daily PNV-OMEGA 28-0.6-0.4-340 MG CAPS PRENAT W/O E-[id number]-FA-OMEGA Inactive RANITIDINE HCL 150 MG CAPS 1 twice a day RANITIDINE HCL 150 MG CAPS 162633 RANITIDINE HCL Inactive FLINSTONES GUMMIES OMEGA-3 DHA CHEW Take one by mouth daily FLINSTONES GUMMIES OMEGA-3 DHA CHEW PEDIATRIC MULTIPLE VIT-C-FA Inactive SERTRALINE HCL 50 MG TABS 1 daily for depression SERTRALINE HCL 50 MG TABS 413455 SERTRALINE HCL Inactive TYLENOL EXTRA STRENGTH 500 MG TABS 2 @ HS TYLENOL EXTRA STRENGTH 500 MG TABS 349683 ACETAMINOPHEN Inactive TRAMADOL HCL 50 MG TABS 1-2 tablets every 6 hours as needed for pain TRAMADOL HCL 50 MG TABS 946574 TRAMADOL HCL Inactive HYDROCODONE-ACETAMINOPHEN 5-325 MG TABS 1 pill three times daily as needed for pain HYDROCODONE-ACETAMINOPHEN 5-325 MG TABS 908125 HYDROCODONE-ACETAMINOPHEN Inactive CITALOPRAM HYDROBROMIDE 10 MG TABS 1 pill daily, for depression/anxiety 02/09 CITALOPRAM HYDROBROMIDE 10 MG TABS 125684 CITALOPRAM HYDROBROMIDE Inactive ROBAXIN 500 MG TAB 1-2 pills up to four times daily if needed for muscle spasms ROBAXIN 500 MG TAB 183028 METHOCARBAMOL Inactive FLUOXETINE HCL 10 MG CAPS 2 PO q AM FLUOXETINE HCL 10 MG CAPS 362874 FLUOXETINE HCL Inactive METRONIDAZOLE 250 MG TABS 1 TID METRONIDAZOLE 250 MG TABS 860272 METRONIDAZOLE Inactive BACTRIM DS 800-160 MG TAB [...] given Td(adult) unspecified formulation Adacel immunization Adacel [[id number]] tetanus toxoid, reduced diphtheria toxoid, and acellular [...] Value Unit Range Description Lab Report: Chlamydia/GC APTIMA/75825 - Lab chlamydia DNA probe NOT DETECTED NOT DETECTED Lab Report: Chlamydia/GC APTIMA/29585 - Microbiology Neisseria gonorrhoeae DNA probe NOT [...] negative Encounters Code Encounter Date Provider Facility CPT-11438 Level 3 Est. Patient 14:38:20 CDT Jacque Blas MD PhD [facility] CPT-41269 Level 4 Est. Patient 20:19:14 CDT Jacque Blas MD PhD [facility] CPT-23498 Level 3 Est. Patient 15:41:32 CDT Jacque Blas MD [facility] CPT-92836 Level 3 Est. Patient 18:02:00 SKETCHER Jacque Blas MD [facility] CPT-70477 Level 3 Est. Patient 21:41:26 SKETCHER Jacque Blas MD [facility] CPT-44828 Level 4 Est. Patient 14:43:47 SKETCHER Jacque Blas MD [facility] CPT-74445 Level 3 Est. Patient 20:16:54 SKETCHER Jacque Blas MD [facility] CPT-16958 Level 3 Est. Patient 13:31:37 CDT Jacque Blas MD [facility] CPT-97802 Level 3 New Patient 18:16:07 CDT Jacque Blas MD [facility] Procedures Code Procedure Name Date Entry Date Standard Description CPT-09341 LS spine comp w obliq 15:53:02 SKETCHER CPT-98084 C-Spine Min 4V 15:53:02 SKETCHER CPT-77783 UHCG (floor use only) 14:15:45 CDT CPT-76105 UHCG (floor use only) 14:09:15 CDT CPT-J7302 Mirena IUD 13:30:58 CDT CPT-10909 Insertion of IUD 13:30:58 CDT CPT-OV Office Visit 13:30:58 CDT CPT-81373 Visit 10:48:09 CDT CPT-41306 Visit 15:34:57 CDT CPT-08068 Visit 15:25:55 CDT CPT-62194 Visit 13:58:45 CDT CPT-29104 Sono OB comp > 14 weeks 16:57:22 CDT CPT-LR Lesion Removal 09:33:27 CDT CPT-21830 Visit 12:50:42 CDT CPT-97367 Visit 18:34:25 CDT CPT-000 Give Appropriate Tetanus Booster 09:16:14 CDT CPT-45704 Administration single or combination vaccine inc oral 11 :36:32 CDT CPT-96641 Tdap 11:36:32 CDT CPT-72750 Visit 09:16:14 CDT CPT-14993 Visit 13:35:24 CDT CPT-38169 Sono OB comp > 14 weeks 11:46:07 CDT CPT-41648 Visit 17:08:15 CDT CPT-79970 Sono OB comp <14 weeks 15:47:19 SKETCHER CPT-81398 Visit 13:28:37 CDT CPT-16908 Spec Collection and Handling Fee 12:41:37 CDT CPT-98234 Visit 12:41:07 CDT CPT-43079 Visit 18:48:53 CDT CPT-86283 Visit 16:25:17 CDT CPT-20555 Sono OB comp > 14 weeks 11:38:18 CDT CPT-33528 Visit 13:36:17 CDT CPT-30186 Visit 13:48:22 CDT
--- OUTSIDE RECORDS SUMMARY | 2019-01-13 20:49 | XMS REPORT | Clinical Summary ---
Author Author Admin, MARCO ANTONIO Gardiner [facility] Address Unknown Phone Unavailable Allergies, Adverse [...] care or not applicable CONSTIPATION 564.00 Resolved aJcque Blas MD PhD Constipation, unspecified SUPRAPUBIC PAIN [...] weeks, then 2 pills daily 07/26 LAMOTRIGINE 00384852802 Active Jacque Blas MD PhD Active ROBAXIN 500 MG TAB 1-2 pills up to four times daily if needed for muscle spasms METHOCARBAMOL 41549957020 No Longer Active Jacque Blas MD PhD Active CITALOPRAM HYDROBROMIDE 10 MG TABS 1 pill daily, for depression/anxiety 02/09 CITALOPRAM HYDROBROMIDE 48340727959 No Longer Active Jacque Blas MD PhD Active HYDROCODONE-ACETAMINOPHEN 7.5-325 MG TABS 1 four times a day as needed for pain HYDROCODONE-ACETAMINOPHEN 62715701999 Active Jacque Blas MD PhD Active HYDROCODONE-ACETAMINOPHEN 5-325 MG TABS 1 pill three times daily as needed for pain HYDROCODONE-ACETAMINOPHEN 91525393768 No Longer Active Jacque Blas MD PhD Active IBUPROFEN 600 MG TAB 1 pill four times daily, with food IBUPROFEN 87166167646 Active Jacque Blas MD PhD Active TRAMADOL HCL 50 MG TABS 1-2 tablets every 6 hours as needed for pain TRAMADOL HCL 04158193335 No Longer Active Jacque Blas MD PhD Active TYLENOL EXTRA STRENGTH 500 MG TABS 2 @ HS ACETAMINOPHEN 54826428153 No Longer Active Jacque Blas MD PhD Active SERTRALINE HCL 50 MG TABS 1 daily for depression SERTRALINE HCL 62196936477 No Longer Active Jacque Blas MD PhD Active BACTRIM DS 800-160 MG TAB 1 tab by mouth twice daily TRIMETHOPRIM-SULFAMETHOXAZOLE 05603853094 No Longer Active Eva Alejo APRN Active FLINSTONES GUMMIES OMEGA-3 DHA CHEW Take one by mouth daily PEDIATRIC MULTIPLE VIT-C-FA 86352564235 No Longer Active Jacque Blas MD PhD Active RANITIDINE HCL 150 MG CAPS 1 twice a day RANITIDINE HCL 96821078408 No Longer Active Jacque Blas MD PhD Active PNV-OMEGA 28-0.6-0.4-340 MG CAPS 1 pill by mouth daily PRENAT W/O G-SF-ETRQH-FA-OMEGA 43457115658 No Longer Active Jacque Blas MD PhD Active BACTRIM DS 800-160 MG TAB 1 tab by mouth twice daily TRIMETHOPRIM-SULFAMETHOXAZOLE 05503353210 No Longer Active Jacque Blas MD PhD Active METRONIDAZOLE 250 MG TABS 1 TID METRONIDAZOLE 10040868496 No Longer Active Jacque Blas MD PhD Active TRI-SPRINTEC 0.18/0.215/0.25 MG-35 MCG TABS 1 PO q Day NORGESTIM-ETH ESTRAD TRIPHASIC 03195159640 No Longer Active Jacque Blas MD PhD Active ALPRAZOLAM 0.25 MG TABS 1/2 tab to 1 tab PO TID PRN ALPRAZOLAM 35420356220 No Longer Active Jacque Blas MD PhD Active FLUOXETINE HCL 10 MG CAPS 2 PO q AM FLUOXETINE HCL 34605319274 No Longer Active Jacque Blas MD PhD Active ALPRAZOLAM 0.25 MG TABS 1/2 tab to 1 tab PO TID PRN ALPRAZOLAM 0.25 MG TABS 092578 ALPRAZOLAM Inactive TRI-SPRINTEC 0.18/0.215/0.25 MG-35 MCG TABS 1 PO q Day TRI-SPRINTEC 0.18/0.215/0.25 MG-35 MCG TABS 246197 NORGESTIM-ETH ESTRAD TRIPHASIC Inactive PNV-OMEGA 28-0.6-0.4-340 MG CAPS 1 pill by mouth daily PNV-OMEGA 28-0.6-0.4-340 MG CAPS PRENAT W/O F-[id number]-[id number]-FA-OMEGA Inactive RANITIDINE HCL 150 MG CAPS 1 twice a day RANITIDINE HCL 150 MG CAPS 825784 RANITIDINE HCL Inactive FLINSTONES GUMMIES OMEGA-3 DHA CHEW Take one by mouth daily FLINSTONES GUMMIES OMEGA-3 DHA CHEW PEDIATRIC MULTIPLE VIT-C-FA Inactive SERTRALINE HCL 50 MG TABS 1 daily for depression SERTRALINE HCL 50 MG TABS 744704 SERTRALINE HCL Inactive TYLENOL EXTRA STRENGTH 500 MG TABS 2 @ HS TYLENOL EXTRA STRENGTH 500 MG TABS 756964 ACETAMINOPHEN Inactive TRAMADOL HCL 50 MG TABS 1-2 tablets every 6 hours as needed for pain TRAMADOL HCL 50 MG TABS 985707 TRAMADOL HCL Inactive HYDROCODONE-ACETAMINOPHEN 5-325 MG TABS 1 pill three times daily as needed for pain HYDROCODONE-ACETAMINOPHEN 5-325 MG TABS 619277 HYDROCODONE-ACETAMINOPHEN Inactive CITALOPRAM HYDROBROMIDE 10 MG TABS 1 pill daily, for depression/anxiety 02/09 CITALOPRAM HYDROBROMIDE 10 MG TABS 528720 CITALOPRAM HYDROBROMIDE Inactive ROBAXIN 500 MG TAB 1-2 pills up to four times daily if needed for muscle spasms ROBAXIN 500 MG TAB 810222 METHOCARBAMOL Inactive FLUOXETINE HCL 10 MG CAPS 2 PO q AM FLUOXETINE HCL 10 MG CAPS 913905 FLUOXETINE HCL Inactive METRONIDAZOLE 250 MG TABS 1 TID METRONIDAZOLE 250 MG TABS 750973 METRONIDAZOLE Inactive BACTRIM DS 800-160 MG TAB [...] given Td(adult) unspecified formulation Adacel immunization Adacel [[id number]] tetanus toxoid, reduced diphtheria toxoid, and acellular [...] Value Unit Range Description Lab Report: Chlamydia/GC APTIMA/56450 - Lab chlamydia DNA probe NOT DETECTED NOT DETECTED Lab Report: Chlamydia/GC APTIMA/69022 - Microbiology Neisseria gonorrhoeae DNA probe NOT [...] negative Encounters Code Encounter Date Provider Facility CPT-60657 Level 3 Est. Patient 14:38:20 CDT Jacque Blas MD PhD [facility] CPT-21368 Level 4 Est. Patient 20:19:14 CDT aJcque Blas MD PhD [facility] CPT-46067 Level 3 Est. Patient 15:41:32 CDT Jacque Blas MD [facility] CPT-64998 Level 3 Est. Patient 18:02:00 PHOTOTYPESETTER OPERATOR Jacque Blas MD [facility] CPT-56611 Level 3 Est. Patient 21:41:26 PHOTOTYPESETTER OPERATOR Jacque Blas MD [facility] CPT-64983 Level 4 Est. Patient 14:43:47 PHOTOTYPESETTER OPERATOR Jacque Blas MD [facility] CPT-16438 Level 3 Est. Patient 20:16:54 PHOTOTYPESETTER OPERATOR Jacque Blas MD [facility] CPT-19313 Level 3 Est. Patient 13:31:37 CDT Jacque Blas MD [facility] CPT-76511 Level 3 New Patient 18:16:07 CDT Jacque Blas MD [facility] Procedures Code Procedure Name Date Entry Date Standard Description CPT-52027 LS spine comp w obliq 15:53:02 PHOTOTYPESETTER OPERATOR CPT-16654 C-Spine Min 4V 15:53:02 PHOTOTYPESETTER OPERATOR CPT-17489 UHCG (floor use only) 14:15:45 CDT CPT-51795 UHCG (floor use only) 14:09:15 CDT CPT-J7302 Mirena IUD 13:30:58 CDT CPT-81179 Insertion of IUD 13:30:58 CDT CPT-OV Office Visit 13:30:58 CDT CPT-92256 Visit 10:48:09 CDT CPT-38319 Visit 15:34:57 CDT CPT-24140 Visit 15:25:55 CDT CPT-87355 Visit 13:58:45 CDT CPT-72827 Sono OB comp > 14 weeks 16:57:22 CDT CPT-LR Lesion Removal 09:33:27 CDT CPT-88489 Visit 12:50:42 CDT CPT-43252 Visit 18:34:25 CDT CPT-000 Give Appropriate Tetanus Booster 09:16:14 CDT CPT-44833 Administration single or combination vaccine inc oral 11 :36:32 CDT CPT-04956 Tdap 11:36:32 CDT CPT-81676 Visit 09:16:14 CDT CPT-68342 Visit 13:35:24 CDT CPT-22070 Sono OB comp > 14 weeks 11:46:07 CDT CPT-83065 Visit 17:08:15 CDT CPT-05775 Sono OB comp <14 weeks 15:47:19 PHOTOTYPESETTER OPERATOR CPT-61231 Visit 13:28:37 CDT CPT-68672 Spec Collection and Handling Fee 12:41:37 CDT CPT-10398 Visit 12:41:07 CDT CPT-39366 Visit 18:48:53 CDT CPT-32605 Visit 16:25:17 CDT CPT-22301 Sono OB comp > 14 weeks 11:38:18 CDT CPT-72096 Visit 13:36:17 CDT CPT-72953 Visit 13:48:22 CDT
--- OUTSIDE RECORDS SUMMARY | 2019-01-13 20:49 | XMS REPORT | Clinical Summary ---
Author Author Admin, MARCO ANTONIO Gardiner [facility] Address Unknown Phone Unavailable Allergies, [...] PhD Viral warts, unspecified EXAMINATION V24.2 Resolved Jacqeu Blas MD PhD Routine follow-up CONTRACEPTIVE MANAGEMENT [...] weeks, then 2 pills daily 07/26 LAMOTRIGINE 06878376076 Active Jacque Blas MD PhD Active ROBAXIN 500 MG TAB 1-2 pills up to four times daily if needed for muscle spasms METHOCARBAMOL 37277157993 No Longer Active Jacque Blas MD PhD Active CITALOPRAM HYDROBROMIDE 10 MG TABS 1 pill daily, for depression/anxiety 02/09 CITALOPRAM HYDROBROMIDE 31971077795 No Longer Active Jacque Blas MD PhD Active HYDROCODONE-ACETAMINOPHEN 7.5-325 MG TABS 1 four times a day as needed for pain HYDROCODONE-ACETAMINOPHEN 87176365642 Active Jacque Blas MD PhD Active HYDROCODONE-ACETAMINOPHEN 5-325 MG TABS 1 pill three times daily as needed for pain HYDROCODONE-ACETAMINOPHEN 03247585035 No Longer Active Jacque Blas MD PhD Active IBUPROFEN 600 MG TAB 1 pill four times daily, with food IBUPROFEN 63590148247 Active Jacque Blas MD PhD Active TRAMADOL HCL 50 MG TABS 1-2 tablets every 6 hours as needed for pain TRAMADOL HCL 58134689146 No Longer Active Jacque Blas MD PhD Active TYLENOL EXTRA STRENGTH 500 MG TABS 2 @ HS ACETAMINOPHEN 58000477803 No Longer Active Jacque Blas MD PhD Active SERTRALINE HCL 50 MG TABS 1 daily for depression SERTRALINE HCL 58716137335 No Longer Active Jacque Blas MD PhD Active BACTRIM DS 800-160 MG TAB 1 tab by mouth twice daily TRIMETHOPRIM-SULFAMETHOXAZOLE 69530905665 No Longer Active Eva Alejo APRN Active FLINSTONES GUMMIES OMEGA-3 DHA CHEW Take one by mouth daily PEDIATRIC MULTIPLE VIT-C-FA 21717067779 No Longer Active Jacque Blas MD PhD Active RANITIDINE HCL 150 MG CAPS 1 twice a day RANITIDINE HCL 44892244502 No Longer Active Jacque Blas MD PhD Active PNV-OMEGA 28-0.6-0.4-340 MG CAPS 1 pill by mouth daily PRENAT W/O E-TY-GPNGR-FA-OMEGA 39386819492 No Longer Active Jacque Blas MD PhD Active BACTRIM DS 800-160 MG TAB 1 tab by mouth twice daily TRIMETHOPRIM-SULFAMETHOXAZOLE 69377356990 No Longer Active Jacque Blas MD PhD Active METRONIDAZOLE 250 MG TABS 1 TID METRONIDAZOLE 18986460514 No Longer Active Jacque Blas MD PhD Active TRI-SPRINTEC 0.18/0.215/0.25 MG-35 MCG TABS 1 PO q Day NORGESTIM-ETH ESTRAD TRIPHASIC 72651422163 No Longer Active Jacque Blas MD PhD Active ALPRAZOLAM 0.25 MG TABS 1/2 tab to 1 tab PO TID PRN ALPRAZOLAM 60126312650 No Longer Active Jacque Blas MD PhD Active FLUOXETINE HCL 10 MG CAPS 2 PO q AM FLUOXETINE HCL 85132845056 No Longer Active Jacque Blas MD PhD Active ALPRAZOLAM 0.25 MG TABS 1/2 tab to 1 tab PO TID PRN ALPRAZOLAM 0.25 MG TABS 784613 ALPRAZOLAM Inactive TRI-SPRINTEC 0.18/0.215/0.25 MG-35 MCG TABS 1 PO q Day TRI-SPRINTEC 0.18/0.215/0.25 MG-35 MCG TABS 687442 NORGESTIM-ETH ESTRAD TRIPHASIC Inactive PNV-OMEGA 28-0.6-0.4-340 MG CAPS 1 pill by mouth daily PNV-OMEGA 28-0.6-0.4-340 MG CAPS PRENAT W/O W-PW-SFPMA-FA-OMEGA Inactive RANITIDINE HCL 150 MG CAPS 1 twice a day RANITIDINE HCL 150 MG CAPS 068283 RANITIDINE HCL Inactive FLINSTONES GUMMIES OMEGA-3 DHA CHEW Take one by mouth daily FLINSTONES GUMMIES OMEGA-3 DHA CHEW PEDIATRIC MULTIPLE VIT-C-FA Inactive SERTRALINE HCL 50 MG TABS 1 daily for depression SERTRALINE HCL 50 MG TABS 580034 SERTRALINE HCL Inactive TYLENOL EXTRA STRENGTH 500 MG TABS 2 @ HS TYLENOL EXTRA STRENGTH 500 MG TABS 711453 ACETAMINOPHEN Inactive TRAMADOL HCL 50 MG TABS 1-2 tablets every 6 hours as needed for pain TRAMADOL HCL 50 MG TABS 514875 TRAMADOL HCL Inactive HYDROCODONE-ACETAMINOPHEN 5-325 MG TABS 1 pill three times daily as needed for pain HYDROCODONE-ACETAMINOPHEN 5-325 MG TABS 978694 HYDROCODONE-ACETAMINOPHEN Inactive CITALOPRAM HYDROBROMIDE 10 MG TABS 1 pill daily, for depression/anxiety 02/09 CITALOPRAM HYDROBROMIDE 10 MG TABS 860668 CITALOPRAM HYDROBROMIDE Inactive ROBAXIN 500 MG TAB 1-2 pills up to four times daily if needed for muscle spasms ROBAXIN 500 MG TAB 712600 METHOCARBAMOL Inactive FLUOXETINE HCL 10 MG CAPS 2 PO q AM FLUOXETINE HCL 10 MG CAPS 673122 FLUOXETINE HCL Inactive METRONIDAZOLE 250 MG TABS 1 TID METRONIDAZOLE 250 MG TABS 270995 METRONIDAZOLE Inactive BACTRIM DS 800-160 MG TAB [...] reduced Diphtheria, and acellular Pertussis Immunization) Adacel [HVT130] tetanus toxoid, reduced diphtheria toxoid, and acellular [...] Value Unit Range Description Lab Report: Chlamydia/GC APTIMA/25334 - Lab chlamydia DNA probe NOT DETECTED NOT DETECTED chlamydia DNA probe NOT DETECTED NOT DETECTED Lab Report: Chlamydia/GC APTIMA/75069 - Microbiology Neisseria gonorrhoeae DNA probe NOT [...] negative Encounters Code Encounter Date Provider Facility CPT-01246 Level 3 Est. Patient 14:38:20 CDT Jacque Blas MD PhD [facility] CPT-88141 Level 4 Est. Patient 20:19:14 CDT Jacque Blas MD PhD [facility] CPT-78651 Level 3 Est. Patient 15:41:32 CDT Jacque Blas MD PhD [facility] CPT-71536 Level 3 Est. 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 Patient 21:41:26 INSTRUMENT MAINTENANCE SUPERVISOR Jacque Blas MD [facility] CPT-94856 Level 4 Est. Patient 14:43:47 INSTRUMENT MAINTENANCE SUPERVISOR Jacque Blas MD [facility] CPT-95529 Level 3 Est. Patient 20:16:54 INSTRUMENT MAINTENANCE SUPERVISOR Jacque Blas MD [facility] CPT-45543 Level 3 Est. Patient 13:31:37 CDT Jacque Blas MD [facility] CPT-64883 Level 3 New Patient 18:16:07 CDT Jacque Blas MD [facility] Procedures Code Procedure Name Date Entry Date Standard Description CPT-32303 LS spine comp w obliq 15:53:02 INSTRUMENT MAINTENANCE SUPERVISOR CPT-37703 C-Spine Min 4V 15:53:02 INSTRUMENT MAINTENANCE SUPERVISOR CPT-56021 UHCG (floor use only) 14:15:45 CDT CPT-86438 UHCG (floor use only) 14:09:15 CDT CPT-J7302 Mirena IUD 13:30:58 CDT CPT-29434 Insertion of IUD 13:30:58 CDT CPT-OV Office Visit 13:30:58 CDT CPT-43738 Visit 10:48:09 CDT CPT-22811 Visit 15:34:57 CDT CPT-39731 Visit 15:25:55 CDT CPT-42214 Visit 13:58:45 CDT CPT-39939 Sono OB comp > 14 weeks 16:57:22 CDT CPT-LR Lesion Removal 09:33:27 CDT CPT-62232 Visit 12:50:42 CDT CPT-09530 Visit 18:34:25 CDT CPT-000 Give Appropriate Tetanus Booster 09:16:14 CDT CPT-60548 Administration single or combination vaccine inc oral 11 :36:32 CDT CPT-11182 Tdap 11:36:32 CDT CPT-44042 Visit 09:16:14 CDT CPT-74405 Visit 13:35:24 CDT CPT-87436 Sono OB comp > 14 weeks 11:46:07 CDT CPT-65443 Visit 17:08:15 CDT CPT-25310 Sono OB comp <14 weeks 15:47:19 INSTRUMENT MAINTENANCE SUPERVISOR CPT-03554 Visit 13:28:37 CDT CPT-60159 Spec Collection and Handling Fee 12:41:37 CDT CPT-95102 Visit 12:41:07 CDT CPT-16725 Visit 18:48:53 CDT CPT-16360 Visit 16:25:17 CDT CPT-40726 Sono OB comp > 14 weeks 11:38:18 CDT CPT-21254 Visit 13:36:17 CDT CPT-37665 Visit 13:48:22 CDT
--- OUTSIDE RECORDS SUMMARY | 2019-01-13 20:50 | XMS REPORT | Clinical Summary ---
Author Author Admin, MARCO ANTONIO Gardiner [facility] Address Unknown Phone Unavailable Allergies, Adverse [...] Instructions Start Date Stop Date Generic Name [facility] Status Provider Patient Instruction CYCLOBENZAPRINE HCL 10 MG TABS 1/2 - 1 tab by mouth three times daily if needed for spasms/pain CYCLOBENZAPRINE HCL 81114939974 Active Jacque Blas MD PhD Active LAMICTAL 25 MG TABS 1 pill by mouth daily x 2 weeks, then 2 pills daily 07/26 LAMOTRIGINE 81519690737 No Longer Active Jacque Blas MD PhD Active LATUDA 40 MG TABS Take one by mouth daily LURASIDONE HCL 12476965586 Active Jacque Blas MD PhD Active HYDROCODONE-ACETAMINOPHEN 7.5-325 MG TABS 1 four times a day as needed for pain HYDROCODONE-ACETAMINOPHEN 47190269895 No Longer Active Jacque Blas MD PhD Active ROBAXIN 500 MG TAB 1-2 pills up to four times daily if needed for muscle spasms METHOCARBAMOL 32502035750 No Longer Active Jacque Blas MD PhD Active CITALOPRAM HYDROBROMIDE 10 MG TABS 1 pill daily, for depression/anxiety 02/09 CITALOPRAM HYDROBROMIDE 20192301790 No Longer Active Jacque Blas MD PhD Active HYDROCODONE-ACETAMINOPHEN 5-325 MG TABS 1 pill three times daily as needed for pain HYDROCODONE-ACETAMINOPHEN 48176452647 No Longer Active Jacque Blas MD PhD Active IBUPROFEN 600 MG TAB 1 pill four times daily, with food IBUPROFEN 25959782022 Active Jacque Blas MD PhD Active TRAMADOL HCL 50 MG TABS 1-2 tablets every 6 hours as needed for pain TRAMADOL HCL 92667109157 No Longer Active Jacque Blas MD PhD Active TYLENOL EXTRA STRENGTH 500 MG TABS 2 @ HS ACETAMINOPHEN 01799756466 No Longer Active Jacque Blas MD PhD Active SERTRALINE HCL 50 MG TABS 1 daily for depression SERTRALINE HCL 29010657290 No Longer Active Jacque Blas MD PhD Active BACTRIM DS 800-160 MG TAB 1 tab by mouth twice daily TRIMETHOPRIM-SULFAMETHOXAZOLE 70700259968 No Longer Active Eva Alejo SOFTWARE 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 Active FLINSTONES GUMMIES OMEGA-3 DHA CHEW Take one by mouth daily PEDIATRIC MULTIPLE VIT-C-FA 43574658240 No Longer Active Jacque Blas MD PhD Active RANITIDINE HCL 150 MG CAPS 1 twice a day RANITIDINE HCL 25170047195 No Longer Active Jacque Blas MD PhD Active PNV-OMEGA 28-0.6-0.4-340 MG CAPS 1 pill by mouth daily PRENAT W/O F-PT-SORDZ-FA-OMEGA 48882084357 No Longer Active Jacque Blas MD PhD Active BACTRIM DS 800-160 MG TAB 1 tab by mouth twice daily TRIMETHOPRIM-SULFAMETHOXAZOLE 00469000805 No Longer Active Jacque Blas MD PhD Active METRONIDAZOLE 250 MG TABS 1 TID METRONIDAZOLE 81158367430 No Longer Active Jacque Blas MD PhD Active TRI-SPRINTEC 0.18/0.215/0.25 MG-35 MCG TABS 1 PO q Day NORGESTIM-ETH ESTRAD TRIPHASIC 49391219030 No Longer Active Jacque Blas MD PhD Active ALPRAZOLAM 0.25 MG TABS 1/2 tab to 1 tab PO TID PRN ALPRAZOLAM 80459002198 No Longer Active Jacque Blas MD PhD Active FLUOXETINE HCL 10 MG CAPS 2 PO q AM FLUOXETINE HCL 69629083964 No Longer Active Jacque Blas MD PhD Active ALPRAZOLAM 0.25 MG TABS 1/2 tab to 1 tab PO TID PRN ALPRAZOLAM 0.25 MG TABS 634975 ALPRAZOLAM Inactive TRI-SPRINTEC 0.18/0.215/0.25 MG-35 MCG TABS 1 PO q Day TRI-SPRINTEC 0.18/0.215/0.25 MG-35 MCG TABS 437084 NORGESTIM-ETH ESTRAD TRIPHASIC Inactive PNV-OMEGA 28-0.6-0.4-340 MG CAPS 1 pill by mouth daily PNV-OMEGA 28-0.6-0.4-340 MG CAPS PRENAT W/O R-[id number]-FA-OMEGA Inactive RANITIDINE HCL 150 MG CAPS 1 twice a day RANITIDINE HCL 150 MG CAPS 491020 RANITIDINE HCL Inactive FLINSTONES GUMMIES OMEGA-3 DHA CHEW Take one by mouth daily FLINSTONES GUMMIES OMEGA-3 DHA CHEW PEDIATRIC MULTIPLE VIT-C-FA Inactive SERTRALINE HCL 50 MG TABS 1 daily for depression SERTRALINE HCL 50 MG TABS 363403 SERTRALINE HCL Inactive TYLENOL EXTRA STRENGTH 500 MG TABS 2 @ HS TYLENOL EXTRA STRENGTH 500 MG TABS 013033 ACETAMINOPHEN Inactive TRAMADOL HCL 50 MG TABS 1-2 tablets every 6 hours as needed for pain TRAMADOL HCL 50 MG TABS 099446 TRAMADOL HCL Inactive HYDROCODONE-ACETAMINOPHEN 5-325 MG TABS 1 pill three times daily as needed for pain HYDROCODONE-ACETAMINOPHEN 5-325 MG TABS 441562 HYDROCODONE-ACETAMINOPHEN Inactive CITALOPRAM HYDROBROMIDE 10 MG TABS 1 pill daily, for depression/anxiety 02/09 CITALOPRAM HYDROBROMIDE 10 MG TABS 952894 CITALOPRAM HYDROBROMIDE Inactive ROBAXIN 500 MG TAB 1-2 pills up to four times daily if needed for muscle spasms ROBAXIN 500 MG TAB 855670 METHOCARBAMOL Inactive HYDROCODONE-ACETAMINOPHEN 7.5-325 MG TABS 1 four times a day as needed for pain HYDROCODONE-ACETAMINOPHEN 7.5-325 MG TABS 348900 HYDROCODONE-ACETAMINOPHEN Inactive LAMICTAL 25 MG TABS 1 pill by mouth daily x 2 weeks, then 2 pills daily 07/26 LAMICTAL 25 MG TABS 190930 LAMOTRIGINE Inactive FLUOXETINE HCL 10 MG CAPS 2 PO q AM FLUOXETINE HCL 10 MG CAPS 298107 FLUOXETINE HCL Inactive METRONIDAZOLE 250 MG TABS 1 TID METRONIDAZOLE 250 MG TABS 500831 METRONIDAZOLE Inactive BACTRIM DS 800-160 MG TAB [...] reduced Diphtheria, and acellular Pertussis Immunization) Adacel [LDT398] tetanus toxoid, reduced diphtheria toxoid, and acellular [...] Value Unit Range Description Lab Report: Chlamydia/GC APTIMA/11397 - Lab chlamydia DNA probe NOT DETECTED NOT DETECTED Lab Report: Chlamydia/GC APTIMA/75417 - Microbiology Neisseria gonorrhoeae DNA probe NOT DETECTED NOT DETECTED Lab Report: CKI, Erythrocyte Sed Rate - Chemistry creatine kinase, serum 63 U/L 26-192 Encounters Code Encounter Date Provider Facility [facility]-55407 Level 4 Est. Patient 17:32:49 BUSINESS OBJECTS ANALYST Jacque Blas MD [facility]-39939 Level 3 Est. Patient 14:38:20 CDT Jacque Blas MD [facility]-23065 Level 4 Est. Patient 20:19:14 CDT Jacque Blas MD [facility]-62163 Level 3 Est. Patient 15:41:32 CDT Jacque Blas MD [facility]-92113 Level 3 Est. Patient 18:02:00 BUSINESS OBJECTS ANALYST Jacque Blas MD [facility]-26853 Level 3 Est. Patient 21:41:26 BUSINESS OBJECTS ANALYST Jacque Blas MD [facility]-12328 Level 4 Est. Patient 14:43:47 BUSINESS OBJECTS ANALYST Jaqcue Blas MD [facility]-85669 Level 3 Est. Patient 20:16:54 BUSINESS OBJECTS ANALYST Jacque Blas MD [facility]-78439 Level 3 Est. Patient 13:31:37 CDT Jacque Blas MD [facility]-46166 Level 3 New Patient 18:16:07 CDT Jacque Blas MD PhD [facility] Procedures Code Procedure Name Date Entry Date Standard Description CPT-03453 LS spine comp w obliq 15:53:02 BUSINESS OBJECTS ANALYST CPT-39857 C-Spine Min 4V 15:53:02 BUSINESS OBJECTS ANALYST CPT-74028 UHCG (floor use only) 14:15:45 CDT CPT-18669 UHCG (floor use only) 14:09:15 CDT CPT-J7302 Mirena IUD 13:30:58 CDT CPT-78395 Insertion of IUD 13:30:58 CDT CPT-OV Office Visit 13:30:58 CDT CPT-36451 Visit 10:48:09 CDT CPT-82303 Visit 15:34:57 CDT CPT-62670 Visit 15:25:55 CDT CPT-96253 Visit 13:58:45 CDT CPT-35227 Sono OB comp > 14 weeks 16:57:22 CDT CPT-LR Lesion Removal 09:33:27 CDT CPT-69172 Visit 12:50:42 CDT CPT-43025 Visit 18:34:25 CDT CPT-000 Give Appropriate Tetanus Booster 09:16:14 CDT CPT-09828 Administration single or combination vaccine inc oral 11 :36:32 CDT CPT-88634 Tdap 11:36:32 CDT CPT-87507 Visit 09:16:14 CDT CPT-56305 Visit 13:35:24 CDT CPT-73084 Sono OB comp > 14 weeks 11:46:07 CDT CPT-08815 Visit 17:08:15 CDT CPT-77835 Sono OB comp <14 weeks 15:47:19 BUSINESS OBJECTS ANALYST CPT-96468 Visit 13:28:37 CDT CPT-51598 Spec Collection and Handling Fee 12:41:37 CDT CPT-60989 Visit 12:41:07 CDT CPT-95767 Visit 18:48:53 CDT CPT-51738 Visit 16:25:17 CDT CPT-25837 Sono OB comp > 14 weeks 11:38:18 CDT CPT-32009 Visit 13:36:17 CDT CPT-29319 Visit 13:48:22 CDT
--- OUTSIDE RECORDS SUMMARY | 2019-01-13 20:50 | XMS REPORT ---
Author Author [facility] Medical Staff Organization [facility] Address [address], [place] [address] Phone [phone] Care Team Providers Care Recoil Spring Winder Name Role Phone RAMSES MENDOZA, EDDY PP [phone] Summary purpose TRANSITION OF CARE AUTO GENERATION Chief Complaint and Reason for Visit Admit Diagnosis 1 COUGH Problem list No authorized problems tracked for [...] Code Type Description Date Performed Performing Physician 23970 CPT-4 EMERGENCY DEPT VISIT 07-24-2014 SHAD GILMORE 34995 CPT-4 EMERGENCY DEPT VISIT 07-24-2014 SHAD GILMORE Functional status No functional or cognitive status observations are available for this visit. Vital signs Type Value Date Respiration Rate 18breaths per minute 81-66-432137:53 Pulse 76beats per minute 61-93-065289:53 Oxygen Saturation 100% 94-17-098857:53 BP Systolic 108mmHg 87-93-227289:53 BP Diastolic 67mmHg 62-16-978044:53 Temperature 97.6F 41-59-789640:53 Weight 160LB 56-94-757537:55 Social history Type Value Smoking Status CURRENT EVERY DAY SMOKER Treatment Plan No treatment plan text is available for this visit. Hospital discharge instructions Dismissal Condition good Disposition on DC home DC Inst/Educ Give yes Med/Side Effects Rev yes
--- OUTSIDE RECORDS SUMMARY | 2019-01-13 20:50 | XMS REPORT ---
Author [facility] Medical Staff Organization [facility] Address [address], [place] [address] Phone [phone] Care Team Providers Care Property Management Supervisor Name Role Phone EDDY PEARCE MD PP [phone] Summary purpose TRANSITION OF CARE AUTO GENERATION [...] laboratory data RESULTS Drug Screen In House 63-59-873461:41:00 Result Normal Range Units Amphetamine AB Positive [...] Tricyclic Antidepressants Negative Negative Therapeutic Drug Monitoring 49-85-298193:30:00 Result Normal Range Units Acetaminophen L@ < 0.0 10.0-30.0 ug/ml Salicylate L 0.8 2.0-20.0 mg/dl Chemistry :30:00 Result Normal Range Units Sodium 139 134-145 mEq/l Potassium 3.6 3.5-5.1 mEq/l Chloride 104 98-107 mEq/l CO2 27.1 22-28 mEq/l Glucose 96 70-105 mg/dl BUN 10 7-18 mg/dl Creatinine H 1.17 0.6-1.0 mg/dl Calcium 9.5 8.4-10.2 mg/dl TP - Total Protein 8.0 6.0-8.3 g/dl Albumin 4.5 3.5-5 g/dl Bilirubin - Total 0.7 0.1-1.0 mg/dl AST 19 10-42 IU/L ALT 17 12-65 IU/L ALP 55 25-72 IU/L Osmolality L 276.4 280-300 mOsm/L Albumin/Globulin Ratio 1.3 0-8 Anion GAP L 7.9 8-16 BUN/Creatinine Ratio L 8.5 10-20 Estimated GFR L 57 >=60 mL/min/1.7 Hematology :30:00 Result Normal Range Units WBC H 12.0 4.8-10.8 103/uL RBC 4.3 4.2-5.4 106/uL HGB 12.6 12.0-16.0 g/dl HCT L 35.9 36.9-47.0 % MCV 84.5 81-99 FL MCH 29.6 27-31 pg MCHC 35.1 33-37 g/dl RDW 13.3 11.5-15.5 % PLT H 447 130-400 103/uL MPV 10.2 7.3-10.4 FL Special Chemistry :30:00 Result Normal Range Units ETOH < 3 0-5 mg/dl Radiology Results :30:00 Result Normal Range Units MPV 10.2 7.3-10.4 FL History of procedures No procedures recorded for this patient visit. Functional status No functional or cognitive status observations are available for this visit. Vital signs Type Value Date Respiration Rate 20breaths per minute :05 Pulse 113beats per minute :05 Oxygen Saturation 97% 64-41-799073:05 BP Systolic 135mmHg :05 BP Diastolic 82mmHg :05 Temperature 100.4F :05 Social history Type Value Smoking Status CURRENT EVERY DAY SMOKER Treatment Plan No treatment plan text is available for this visit. Hospital discharge instructions Dismissal Condition fair Disposition on DC transfered Comment: OSH
--- OUTSIDE RECORDS SUMMARY | 2019-01-13 20:51 | XMS REPORT | Clinical Summary ---
Author Author Admin, MARCO ANTONIO Gardiner [facility] Address Unknown Phone Unavailable Allergies, Adverse Reactions, [...] weeks, then 2 pills daily 07/26 LAMOTRIGINE 08492660010 Active Jacque Blas MD PhD Active ROBAXIN 500 MG TAB 1-2 pills up to four times daily if needed for muscle spasms METHOCARBAMOL 56525630755 No Longer Active Jacque Blas MD PhD Active CITALOPRAM HYDROBROMIDE 10 MG TABS 1 pill daily, for depression/anxiety 02/09 CITALOPRAM HYDROBROMIDE 34971560634 No Longer Active Jacque Blas MD PhD Active HYDROCODONE-ACETAMINOPHEN 7.5-325 MG TABS 1 four times a day as needed for pain HYDROCODONE-ACETAMINOPHEN 08065725576 Active Jacque Blas MD PhD Active HYDROCODONE-ACETAMINOPHEN 5-325 MG TABS 1 pill three times daily as needed for pain HYDROCODONE-ACETAMINOPHEN 20479813559 No Longer Active Jacque Blas MD PhD Active IBUPROFEN 600 MG TAB 1 pill four times daily, with food IBUPROFEN 17685455677 Active Jacque Blas MD PhD Active TRAMADOL HCL 50 MG TABS 1-2 tablets every 6 hours as needed for pain TRAMADOL HCL 99260167640 No Longer Active Jacque Blas MD PhD Active TYLENOL EXTRA STRENGTH 500 MG TABS 2 @ HS ACETAMINOPHEN 65299278958 No Longer Active Jacque Blas MD PhD Active SERTRALINE HCL 50 MG TABS 1 daily for depression SERTRALINE HCL 25281848210 No Longer Active Jacque Blas MD PhD Active BACTRIM DS 800-160 MG TAB 1 tab by mouth twice daily TRIMETHOPRIM-SULFAMETHOXAZOLE 88816779159 No Longer Active Eva Alejo APRN Active FLINSTONES GUMMIES OMEGA-3 DHA CHEW Take one by mouth daily PEDIATRIC MULTIPLE VIT-C-FA 69028802453 No Longer Active Jacque Blas MD PhD Active RANITIDINE HCL 150 MG CAPS 1 twice a day RANITIDINE HCL 21575151896 No Longer Active Jacque Blas MD PhD Active PNV-OMEGA 28-0.6-0.4-340 MG CAPS 1 pill by mouth daily PRENAT W/O J-TT-INMOR-FA-OMEGA 20775495630 No Longer Active Jacque Blas MD PhD Active BACTRIM DS 800-160 MG TAB 1 tab by mouth twice daily TRIMETHOPRIM-SULFAMETHOXAZOLE 90682805136 No Longer Active Jacque Blas MD PhD Active METRONIDAZOLE 250 MG TABS 1 TID METRONIDAZOLE 30968320269 No Longer Active Jacque Blas MD PhD Active TRI-SPRINTEC 0.18/0.215/0.25 MG-35 MCG TABS 1 PO q Day NORGESTIM-ETH ESTRAD TRIPHASIC 16843832714 No Longer Active Jacque Blas MD PhD Active ALPRAZOLAM 0.25 MG TABS 1/2 tab to 1 tab PO TID PRN ALPRAZOLAM 93474413630 No Longer Active Jacque Blas MD PhD Active FLUOXETINE HCL 10 MG CAPS 2 PO q AM FLUOXETINE HCL 04249926197 No Longer Active Jacque Blas MD PhD Active ALPRAZOLAM 0.25 MG TABS 1/2 tab to 1 tab PO TID PRN ALPRAZOLAM 0.25 MG TABS 685380 ALPRAZOLAM Inactive TRI-SPRINTEC 0.18/0.215/0.25 MG-35 MCG TABS 1 PO q Day TRI-SPRINTEC 0.18/0.215/0.25 MG-35 MCG TABS 122463 NORGESTIM-ETH ESTRAD TRIPHASIC Inactive PNV-OMEGA 28-0.6-0.4-340 MG CAPS 1 pill by mouth daily PNV-OMEGA 28-0.6-0.4-340 MG CAPS PRENAT W/O Q-VY-PFSDM-FA-OMEGA Inactive RANITIDINE HCL 150 MG CAPS 1 twice a day RANITIDINE HCL 150 MG CAPS 633442 RANITIDINE HCL Inactive FLINSTONES GUMMIES OMEGA-3 DHA CHEW Take one by mouth daily FLINSTONES GUMMIES OMEGA-3 DHA CHEW PEDIATRIC MULTIPLE VIT-C-FA Inactive SERTRALINE HCL 50 MG TABS 1 daily for depression SERTRALINE HCL 50 MG TABS 426525 SERTRALINE HCL Inactive TYLENOL EXTRA STRENGTH 500 MG TABS 2 @ HS TYLENOL EXTRA STRENGTH 500 MG TABS 213604 ACETAMINOPHEN Inactive TRAMADOL HCL 50 MG TABS 1-2 tablets every 6 hours as needed for pain TRAMADOL HCL 50 MG TABS 669840 TRAMADOL HCL Inactive HYDROCODONE-ACETAMINOPHEN 5-325 MG TABS 1 pill three times daily as needed for pain HYDROCODONE-ACETAMINOPHEN 5-325 MG TABS 342337 HYDROCODONE-ACETAMINOPHEN Inactive CITALOPRAM HYDROBROMIDE 10 MG TABS 1 pill daily, for depression/anxiety 02/09 CITALOPRAM HYDROBROMIDE 10 MG TABS 966296 CITALOPRAM HYDROBROMIDE Inactive ROBAXIN 500 MG TAB 1-2 pills up to four times daily if needed for muscle spasms ROBAXIN 500 MG TAB 799365 METHOCARBAMOL Inactive FLUOXETINE HCL 10 MG CAPS 2 PO q AM FLUOXETINE HCL 10 MG CAPS 912953 FLUOXETINE HCL Inactive METRONIDAZOLE 250 MG TABS 1 TID METRONIDAZOLE 250 MG TABS 384086 METRONIDAZOLE Inactive BACTRIM DS 800-160 MG TAB [...] reduced Diphtheria, and acellular Pertussis Immunization) Adacel [LYL313] tetanus toxoid, reduced diphtheria toxoid, and acellular [...] Value Unit Range Description Lab Report: Chlamydia/GC APTIMA/36074 - Lab chlamydia DNA probe NOT DETECTED NOT DETECTED chlamydia DNA probe NOT DETECTED NOT DETECTED Lab Report: Chlamydia/GC APTIMA/56838 - Microbiology Neisseria gonorrhoeae DNA probe NOT [...] negative Encounters Code Encounter Date Provider Facility CPT-19982 Level 3 Est. Patient 14:38:20 CDT Jacque Blas MD PhD [facility] CPT-17965 Level 4 Est. Patient 20:19:14 CDT Jacque Blas MD PhD [facility] CPT-84155 Level 3 Est. Patient 15:41:32 CDT Jacque Blas MD PhD [facility] CPT-88318 Level 3 Est. Patient 18:02:00 CARE ASSISTANT Jacque Blas MD [facility] CPT-93839 Level 3 Est. Patient 21:41:26 CARE ASSISTANT Jacque Blas MD [facility] CPT-44064 Level 4 Est. Patient 14:43:47 CARE ASSISTANT Jacque Blas MD [facility] CPT-80335 Level 3 Est. Patient 20:16:54 CARE ASSISTANT Jacque Blas MD [facility] CPT-26342 Level 3 Est. Patient 13:31:37 CDT Jacque Blas MD [facility] CPT-32070 Level 3 New Patient 18:16:07 CDT Jacque Blas MD [facility] Procedures Code Procedure Name Date Entry Date Standard Description CPT-39932 LS spine comp w obliq 15:53:02 CARE ASSISTANT CPT-09559 C-Spine Min 4V 15:53:02 CARE ASSISTANT CPT-59308 UHCG (floor use only) 14:15:45 CDT CPT-95598 UHCG (floor use only) 14:09:15 CDT CPT-J7302 Mirena IUD 13:30:58 CDT CPT-28191 Insertion of IUD 13:30:58 CDT CPT-OV Office Visit 13:30:58 CDT CPT-75478 Visit 10:48:09 CDT CPT-42351 Visit 15:34:57 CDT CPT-81773 Visit 15:25:55 CDT CPT-99584 Visit 13:58:45 CDT CPT-43217 Sono OB comp > 14 weeks 16:57:22 CDT CPT-LR Lesion Removal 09:33:27 CDT CPT-48082 Visit 12:50:42 CDT CPT-59963 Visit 18:34:25 CDT CPT-000 Give Appropriate Tetanus Booster 09:16:14 CDT CPT-92141 Administration single or combination vaccine inc oral 11 :36:32 CDT CPT-68643 Tdap 11:36:32 CDT CPT-11547 Visit 09:16:14 CDT CPT-66300 Visit 13:35:24 CDT CPT-41884 Sono OB comp > 14 weeks 11:46:07 CDT CPT-38563 Visit 17:08:15 CDT CPT-79736 Sono OB comp <14 weeks 15:47:19 CARE ASSISTANT CPT-03980 Visit 13:28:37 CDT CPT-18332 Spec Collection and Handling Fee 12:41:37 CDT CPT-15120 Visit 12:41:07 CDT CPT-40903 Visit 18:48:53 CDT CPT-15729 Visit 16:25:17 CDT CPT-04034 Sono OB comp > 14 weeks 11:38:18 CDT CPT-46709 Visit 13:36:17 CDT CPT-48297 Visit 13:48:22 CDT
--- OUTSIDE RECORDS SUMMARY | 2019-01-13 20:52 | XMS REPORT | Clinical Summary ---
[...] Dysthymic disorder Routine gynecological examination V72.31 Active Jaqcue Blas MD PhD Routine gynecological examination Neck [...] Instructions Start Date Stop Date Generic Name [facility] Status Provider Patient Instruction CYCLOBENZAPRINE HCL 10 MG TABS 1/2 - 1 tab by mouth three times daily if needed for spasms/pain CYCLOBENZAPRINE HCL 06114550035 Active Jacque Blas MD PhD Active LAMICTAL 25 MG TABS 1 pill by mouth daily x 2 weeks, then 2 pills daily 07/26 LAMOTRIGINE 36264503471 No Longer Active Jacque Blas MD PhD Active LATUDA 40 MG TABS Take one by mouth daily LURASIDONE HCL 06631754989 Active Jacque Blas MD PhD Active HYDROCODONE-ACETAMINOPHEN 7.5-325 MG TABS 1 four times a day as needed for pain HYDROCODONE-ACETAMINOPHEN 74234046158 No Longer Active Jacque Blas MD PhD Active ROBAXIN 500 MG TAB 1-2 pills up to four times daily if needed for muscle spasms METHOCARBAMOL 44989982502 No Longer Active Jacque Blas MD PhD Active CITALOPRAM HYDROBROMIDE 10 MG TABS 1 pill daily, for depression/anxiety 02/09 CITALOPRAM HYDROBROMIDE 30054367054 No Longer Active Jacque Blas MD PhD Active HYDROCODONE-ACETAMINOPHEN 5-325 MG TABS 1 pill three times daily as needed for pain HYDROCODONE-ACETAMINOPHEN 81998889658 No Longer Active Jacque Blas MD PhD Active IBUPROFEN 600 MG TAB 1 pill four times daily, with food IBUPROFEN 02799437203 Active Jacque Blas MD PhD Active TRAMADOL HCL 50 MG TABS 1-2 tablets every 6 hours as needed for pain TRAMADOL HCL 26803654734 No Longer Active Jacque Blas MD PhD Active TYLENOL EXTRA STRENGTH 500 MG TABS 2 @ HS ACETAMINOPHEN 98571131349 No Longer Active Jacque Blas MD PhD Active SERTRALINE HCL 50 MG TABS 1 daily for depression SERTRALINE HCL 21286357967 No Longer Active Jacque Blas MD PhD Active BACTRIM DS 800-160 MG TAB 1 tab by mouth twice daily TRIMETHOPRIM-SULFAMETHOXAZOLE 58980516991 No Longer Active 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 FLINSTONES GUMMIES OMEGA-3 DHA CHEW Take one by mouth daily PEDIATRIC MULTIPLE VIT-C-FA 14489062851 No Longer Active Jacque Blas MD PhD Active RANITIDINE HCL 150 MG CAPS 1 twice a day RANITIDINE HCL 19971557101 No Longer Active Jacque Blas MD PhD Active PNV-OMEGA 28-0.6-0.4-340 MG CAPS 1 pill by mouth daily PRENAT W/O [id number]-[id number]-FA-OMEGA 01473778229 No Longer Active Jacque Blas MD PhD Active BACTRIM DS 800-160 MG TAB 1 tab by mouth twice daily TRIMETHOPRIM-SULFAMETHOXAZOLE 05872606620 No Longer Active Jacque Blas MD PhD Active METRONIDAZOLE 250 MG TABS 1 TID METRONIDAZOLE 04282184136 No Longer Active Jacque Blas MD PhD Active TRI-SPRINTEC 0.18/0.215/0.25 MG-35 MCG TABS 1 PO q Day NORGESTIM-ETH ESTRAD TRIPHASIC 54856729213 No Longer Active Jacque Blas MD PhD Active ALPRAZOLAM 0.25 MG TABS 1/2 tab to 1 tab PO TID PRN ALPRAZOLAM 82420743367 No Longer Active Jacque Blas MD PhD Active FLUOXETINE HCL 10 MG CAPS 2 PO q AM FLUOXETINE HCL 22023569723 No Longer Active Jacque Blas MD PhD Active ALPRAZOLAM 0.25 MG TABS 1/2 tab to 1 tab PO TID PRN ALPRAZOLAM 0.25 MG TABS 477244 ALPRAZOLAM Inactive TRI-SPRINTEC 0.18/0.215/0.25 MG-35 MCG TABS 1 PO q Day TRI-SPRINTEC 0.18/0.215/0.25 MG-35 MCG TABS 370873 NORGESTIM-ETH ESTRAD TRIPHASIC Inactive PNV-OMEGA 28-0.6-0.4-340 MG CAPS 1 pill by mouth daily PNV-OMEGA 28-0.6-0.4-340 MG CAPS PRENAT W/O [id number]-OMEGA Inactive RANITIDINE HCL 150 MG CAPS 1 twice a day RANITIDINE HCL 150 MG CAPS 663079 RANITIDINE HCL Inactive FLINSTONES GUMMIES OMEGA-3 DHA CHEW Take one by mouth daily FLINSTONES GUMMIES OMEGA-3 DHA CHEW PEDIATRIC MULTIPLE VIT-C-FA Inactive SERTRALINE HCL 50 MG TABS 1 daily for depression SERTRALINE HCL 50 MG TABS 161881 SERTRALINE HCL Inactive TYLENOL EXTRA STRENGTH 500 MG TABS 2 @ HS TYLENOL EXTRA STRENGTH 500 MG TABS 256534 ACETAMINOPHEN Inactive TRAMADOL HCL 50 MG TABS 1-2 tablets every 6 hours as needed for pain TRAMADOL HCL 50 MG TABS 069324 TRAMADOL HCL Inactive HYDROCODONE-ACETAMINOPHEN 5-325 MG TABS 1 pill three times daily as needed for pain HYDROCODONE-ACETAMINOPHEN 5-325 MG TABS 296628 HYDROCODONE-ACETAMINOPHEN Inactive CITALOPRAM HYDROBROMIDE 10 MG TABS 1 pill daily, for depression/anxiety 02/09 CITALOPRAM HYDROBROMIDE 10 MG TABS 877760 CITALOPRAM HYDROBROMIDE Inactive ROBAXIN 500 MG TAB 1-2 pills up to four times daily if needed for muscle spasms ROBAXIN 500 MG TAB 245837 METHOCARBAMOL Inactive HYDROCODONE-ACETAMINOPHEN 7.5-325 MG TABS 1 four times a day as needed for pain HYDROCODONE-ACETAMINOPHEN 7.5-325 MG TABS 942869 HYDROCODONE-ACETAMINOPHEN Inactive LAMICTAL 25 MG TABS 1 pill by mouth daily x 2 weeks, then 2 pills daily 07/26 LAMICTAL 25 MG TABS 099741 LAMOTRIGINE Inactive FLUOXETINE HCL 10 MG CAPS 2 PO q AM FLUOXETINE HCL 10 MG CAPS 784694 FLUOXETINE HCL Inactive METRONIDAZOLE 250 MG TABS 1 TID METRONIDAZOLE 250 MG TABS 625497 METRONIDAZOLE Inactive BACTRIM DS 800-160 MG TAB [...] reduced Diphtheria, and acellular Pertussis Immunization) Adacel [[id number]] tetanus toxoid, reduced diphtheria toxoid, and acellular [...] Value Unit Range Description Lab Report: Chlamydia/GC APTIMA/34801 - Lab chlamydia DNA probe NOT DETECTED NOT DETECTED chlamydia DNA probe NOT DETECTED NOT DETECTED Lab Report: Chlamydia/GC APTIMA/87698 - Microbiology Neisseria gonorrhoeae DNA probe NOT DETECTED NOT DETECTED Neisseria gonorrhoeae DNA probe NOT DETECTED NOT DETECTED Lab Report: CKI, Erythrocyte Sed Rate - Chemistry creatine kinase, serum 63 U/L 26-192 Encounters Code Encounter Date Provider Facility [facility]-[id number] Level 4 Est. Patient 17:32:49 TOWER HELPER Jacque Blas MD [facility]-45741 Level 3 Est. Patient 14:38:20 CDT Jacque Blas MD [facility]-72090 Level 4 Est. Patient 20:19:14 CDT Jacque Blas MD [facility]-95977 Level 3 Est. Patient 15:41:32 CDT Jacque Blas MD [facility]-68847 Level 3 Est. Patient 18:02:00 TOWER HELPER Jacque Blas MD [facility]-88947 Level 3 Est. Patient 21:41:26 TOWER HELPER Jacque Blas MD [facility]-78210 Level 4 Est. Patient 14:43:47 TOWER HELPER Jacque Blas MD [facility]54369 Level 3 Est. Patient 20:16:54 TOWER HELPER Jacque Blas MD [facility]-56877 Level 3 Est. Patient 13:31:37 CDT Jacque Blas MD PhD [facility] CPT-16754 Level 3 New Patient 18:16:07 CDT Jacque Blas MD PhD [facility] Procedures Code Procedure Name Date Entry Date Standard Description CPT-32026 LS spine comp w obliq 15:53:02 TOWER HELPER CPT-45188 C-Spine Min 4V 15:53:02 TOWER HELPER CPT-37493 UHCG (floor use only) 14:15:45 CDT CPT-64920 UHCG (floor use only) 14:09:15 CDT CPT-J7302 Mirena IUD 13:30:58 CDT CPT-96718 Insertion of IUD 13:30:58 CDT CPT-OV Office Visit 13:30:58 CDT CPT-65750 Visit 10:48:09 CDT CPT-36704 Visit 15:34:57 CDT CPT-53074 Visit 15:25:55 CDT CPT-53411 Visit 13:58:45 CDT CPT-65831 Sono OB comp > 14 weeks 16:57:22 CDT CPT-LR Lesion Removal 09:33:27 CDT CPT-25547 Visit 12:50:42 CDT CPT-71521 Visit 18:34:25 CDT CPT-000 Give Appropriate Tetanus Booster 09:16:14 CDT CPT-96179 Administration single or combination vaccine inc oral 11 :36:32 CDT CPT-52583 Tdap 11:36:32 CDT CPT-51726 Visit 09:16:14 CDT CPT-50143 Visit 13:35:24 CDT CPT-10255 Sono OB comp > 14 weeks 11:46:07 CDT CPT-83607 Visit 17:08:15 CDT CPT-90996 Sono OB comp <14 weeks 15:47:19 TOWER HELPER CPT-40270 Visit 13:28:37 CDT CPT-03563 Spec Collection and Handling Fee 12:41:37 CDT CPT-02394 Visit 12:41:07 CDT CPT-65546 Visit 18:48:53 CDT CPT-10826 Visit 16:25:17 CDT CPT-07672 Sono OB comp > 14 weeks 11:38:18 CDT CPT-68878 Visit 13:36:17 CDT CPT-91514 Visit 13:48:22 CDT
--- OUTSIDE RECORDS SUMMARY | 2019-01-13 20:52 | XMS REPORT | Clinical Summary ---
Author Author Admin, MARCO ANTONIO Gardiner [facility] Address Unknown Phone Allergies, Adverse Reactions, Alerts Allergy Name Reaction Description Start Date Severity Status Provider No Known Allergies Cecelia Russell [facility] Conditions or Problems Problem Name Problem Code [...] pill daily, for depression/anxiety 02/09 CITALOPRAM HYDROBROMIDE 19136043061 Active Jacque Blas MD PhD Active HYDROCODONE-ACETAMINOPHEN 7.5-325 MG TABS 1 four times a day as needed for pain HYDROCODONE-ACETAMINOPHEN 85953574324 Active Jacque Blas MD PhD Active HYDROCODONE-ACETAMINOPHEN 5-325 MG TABS 1 pill three times daily as needed for pain HYDROCODONE-ACETAMINOPHEN 32525087890 No Longer Active Jacque Blas MD PhD Active ROBAXIN 500 MG TAB 1-2 pills up to four times daily if needed for muscle spasms METHOCARBAMOL 44687690403 Active Jacque Blas MD PhD Active IBUPROFEN 600 MG TAB 1 pill four times daily, with food IBUPROFEN 45906696934 Active Jacque Blas MD PhD Active TRAMADOL HCL 50 MG TABS 1-2 tablets every 6 hours as needed for pain TRAMADOL HCL 85584252557 No Longer Active Jacque Blas MD PhD Active TYLENOL EXTRA STRENGTH 500 MG TABS 2 @ HS ACETAMINOPHEN 84997287491 No Longer Active Jacque Blas MD PhD Active SERTRALINE HCL 50 MG TABS 1 daily for depression SERTRALINE HCL 23889480318 No Longer Active Jacque Blas MD PhD Active BACTRIM DS 800-160 MG TAB 1 tab by mouth twice daily TRIMETHOPRIM-SULFAMETHOXAZOLE 12941312753 No Longer Active Eva Alejo APRN Active FLINSTONES GUMMIES OMEGA-3 DHA CHEW Take one by mouth daily PEDIATRIC MULTIPLE VIT-C-FA 87599300709 No Longer Active Jacque Blas MD PhD Active RANITIDINE HCL 150 MG CAPS 1 twice a day RANITIDINE HCL 13170751115 No Longer Active Jacque Bals MD PhD Active PNV-OMEGA 28-0.6-0.4-340 MG CAPS 1 pill by mouth daily PRENAT W/O [id number]-FA-OMEGA 54064580893 No Longer Active Jacque Blas MD PhD Active BACTRIM DS 800-160 MG TAB 1 tab by mouth twice daily TRIMETHOPRIM-SULFAMETHOXAZOLE 06079037036 No Longer Active Jacque Blas MD PhD Active METRONIDAZOLE 250 MG TABS 1 TID METRONIDAZOLE 50106470590 No Longer Active Jacque Blas MD PhD Active TRI-SPRINTEC 0.18/0.215/0.25 MG-35 MCG TABS 1 PO q Day NORGESTIM-ETH ESTRAD TRIPHASIC 70413502577 No Longer Active Jacque Blas MD PhD Active ALPRAZOLAM 0.25 MG TABS 1/2 tab to 1 tab PO TID PRN ALPRAZOLAM 41736933494 No Longer Active Jacque Blas MD PhD Active FLUOXETINE HCL 10 MG CAPS 2 PO q AM FLUOXETINE HCL 79576278602 No Longer Active Jacque Blas MD PhD Active ALPRAZOLAM 0.25 MG TABS 1/2 tab to 1 tab PO TID PRN ALPRAZOLAM 0.25 MG TABS 532810 ALPRAZOLAM Inactive TRI-SPRINTEC 0.18/0.215/0.25 MG-35 MCG TABS 1 PO q Day TRI-SPRINTEC 0.18/0.215/0.25 MG-35 MCG TABS 924321 NORGESTIM-ETH ESTRAD TRIPHASIC Inactive PNV-OMEGA 28-0.6-0.4-340 MG CAPS 1 pill by mouth daily PNV-OMEGA 28-0.6-0.4-340 MG CAPS PRENAT W/O [id number]-OMEGA Inactive RANITIDINE HCL 150 MG CAPS 1 twice a day RANITIDINE HCL 150 MG CAPS 573273 RANITIDINE HCL Inactive FLINSTONES GUMMIES OMEGA-3 DHA CHEW Take one by mouth daily FLINSTONES GUMMIES OMEGA-3 DHA CHEW PEDIATRIC MULTIPLE VIT-C-FA Inactive SERTRALINE HCL 50 MG TABS 1 daily for depression SERTRALINE HCL 50 MG TABS 465783 SERTRALINE HCL Inactive TYLENOL EXTRA STRENGTH 500 MG TABS 2 @ HS TYLENOL EXTRA STRENGTH 500 MG TABS 900308 ACETAMINOPHEN Inactive TRAMADOL HCL 50 MG TABS 1-2 tablets every 6 hours as needed for pain TRAMADOL HCL 50 MG TABS 771851 TRAMADOL HCL Inactive HYDROCODONE-ACETAMINOPHEN 5-325 MG TABS 1 pill three times daily as needed for pain HYDROCODONE-ACETAMINOPHEN 5-325 MG TABS 931191 HYDROCODONE-ACETAMINOPHEN Inactive FLUOXETINE HCL 10 MG CAPS 2 PO q AM FLUOXETINE HCL 10 MG CAPS 914355 FLUOXETINE HCL Inactive METRONIDAZOLE 250 MG TABS 1 TID METRONIDAZOLE 250 MG TABS 486212 METRONIDAZOLE Inactive BACTRIM DS 800-160 MG TAB 1 tab by mouth twice daily BACTRIM DS 800-160 MG TAB TRIMETHOPRIM-SULFAMETHOXAZOLE Inactive BACTRIM DS 800-160 MG TAB 1 tab by mouth twice daily BACTRIM DS 800-160 MG TAB TRIMETHOPRIM-SULFAMETHOXAZOLE Inactive Advance Directives Directive Description Start Date PERMISSION TO SHARE Immunizations Vaccine Administration Date Value Standard Description Adacel (Tetanus, reduced Diphtheria, and acellular Pertussis Immunization) Adacel [[id number]] tetanus toxoid, reduced diphtheria toxoid, and acellular [...] Value Unit Range Description Lab Report: Chlamydia/GC APTIMA/57145 - Lab chlamydia DNA probe NOT DETECTED NOT DETECTED Lab Report: Chlamydia/GC APTIMA/59286 - Microbiology Neisseria gonorrhoeae DNA probe NOT [...] negative Encounters Code Encounter Date Provider Facility CPT-98413 Level 3 Est. Patient 15:41:32 CDT Jacque Blas MD PhD [facility] CPT-67888 Level 3 Est. Patient 18:02:00 HANDWRITING EXPERT Jacque Blas MD PhD [facility] CPT-98200 Level 3 Est. Patient 21:41:26 HANDWRITING EXPERT Jacque Blas MD [facility] CPT-22227 Level 4 Est. Patient 14:43:47 HANDWRITING EXPERT Jacque Blas MD [facility] CPT-16644 Level 3 Est. Patient 20:16:54 HANDWRITING EXPERT Jacque Blas MD [facility] CPT-00158 Level 3 Est. Patient 13:31:37 CDT Jacque Blas MD [facility] CPT-52336 Level 3 New Patient 18:16:07 CDT Jacque Blas MD [facility] Procedures Code Procedure Name Date Entry Date Standard Description CPT-13475 LS spine comp w obliq 15:53:02 HANDWRITING EXPERT CPT-75942 C-Spine Min 4V 15:53:02 HANDWRITING EXPERT CPT-46368 UHCG (floor use only) 14:15:45 CDT CPT-06068 UHCG (floor use only) 14:09:15 CDT CPT-J7302 Mirena IUD 13:30:58 CDT CPT-95084 Insertion of IUD 13:30:58 CDT CPT-OV Office Visit 13:30:58 CDT CPT-74200 Visit 10:48:09 CDT CPT-36079 Visit 15:34:57 CDT CPT-37254 Visit 15:25:55 CDT CPT-08915 Visit 13:58:45 CDT CPT-77962 Sono OB comp > 14 weeks 16:57:22 CDT CPT-LR Lesion Removal 09:33:27 CDT CPT-15255 Visit 12:50:42 CDT CPT-72063 Visit 18:34:25 CDT CPT-000 Give Appropriate Tetanus Booster 09:16:14 CDT CPT-21256 Administration single or combination vaccine inc oral 11 :36:32 CDT CPT-98432 Tdap 11:36:32 CDT CPT-82471 Visit 09:16:14 CDT CPT-37390 Visit 13:35:24 CDT CPT-62306 Sono OB comp > 14 weeks 11:46:07 CDT CPT-66794 Visit 17:08:15 CDT CPT-75667 Sono OB comp <14 weeks 15:47:19 HANDWRITING EXPERT CPT-85868 Visit 13:28:37 CDT CPT-79881 Spec Collection and Handling Fee 12:41:37 CDT CPT-49587 Visit 12:41:07 CDT CPT-98250 Visit 18:48:53 CDT CPT-36141 Visit 16:25:17 CDT CPT-13508 Sono OB comp > 14 weeks 11:38:18 CDT CPT-61533 Visit 13:36:17 CDT CPT-55250 Visit 13:48:22 CDT
--- OUTSIDE RECORDS SUMMARY | 2019-01-13 20:52 | XMS REPORT ---
Author Author [facility] [employer] [facility] Medical Staff Organization [facility] Address [address] [place] [id number] Phone [phone] Care Team Providers Care Speech And Drama Teacher Name Role Phone EDDY PEARCE MD PP [phone] Summary purpose TRANSITION OF CARE AUTO GENERATION [...] Value Date Respiration Rate 20breaths per minute 19-80-703827:55 Pulse 103beats per minute 50-84-613340:55 Oxygen Saturation 100% 35-40-593866:55 BP Systolic 118mmHg 50-26-328984:55 BP Diastolic 95mmHg 57-08-969914:55 Temperature 97.9F 90-05-178918:55 Social history No Social History or smoking status observations were recorded for this visit. ( Unknown if ever smoked.) Treatment Plan No treatment plan text is available for this visit. Hospital discharge instructions Dismissal Condition good Disposition on DC home DC Inst/Educ Give yes Med/Side Effects Rev yes
--- OUTSIDE RECORDS SUMMARY | 2019-01-13 20:53 | XMS REPORT | Clinical Summary ---
Author Author Admin, MARCO ANTONIO Gardiner [facility] Address Unknown Phone Unavailable Allergies, Adverse [...] daily if needed for muscle spasms METHOCARBAMOL 29821245064 No Longer Active Jacque Blas MD PhD Active CITALOPRAM HYDROBROMIDE 10 MG TABS 1 pill daily, for depression/anxiety 02/09 CITALOPRAM HYDROBROMIDE 26996914923 No Longer Active Jacque Blas MD PhD Active HYDROCODONE-ACETAMINOPHEN 7.5-325 MG TABS 1 four times a day as needed for pain HYDROCODONE-ACETAMINOPHEN 32695221520 Active Bruce Vicente MD Active HYDROCODONE-ACETAMINOPHEN 5-325 MG TABS 1 pill three times daily as needed for pain HYDROCODONE-ACETAMINOPHEN 02138395051 No Longer Active Jacque Blas MD PhD Active IBUPROFEN 600 MG TAB 1 pill four times daily, with food IBUPROFEN 35385729246 Active Jacque Blas MD PhD Active TRAMADOL HCL 50 MG TABS 1-2 tablets every 6 hours as needed for pain TRAMADOL HCL 34202913457 No Longer Active Jacque Blas MD PhD Active TYLENOL EXTRA STRENGTH 500 MG TABS 2 @ HS ACETAMINOPHEN 94820983944 No Longer Active Jacque Blas MD PhD Active SERTRALINE HCL 50 MG TABS 1 daily for depression SERTRALINE HCL 86082281046 No Longer Active Jacque Blas MD PhD Active BACTRIM DS 800-160 MG TAB 1 tab by mouth twice daily TRIMETHOPRIM-SULFAMETHOXAZOLE 54836535818 No Longer Active Eva Alejo APRN Active FLINSTONES GUMMIES OMEGA-3 DHA CHEW Take one by mouth daily PEDIATRIC MULTIPLE VIT-C-FA 59625473321 No Longer Active Jacque Blas MD PhD Active RANITIDINE HCL 150 MG CAPS 1 twice a day RANITIDINE HCL 49960269835 No Longer Active Jacque Blas MD PhD Active PNV-OMEGA 28-0.6-0.4-340 MG CAPS 1 pill by mouth daily PRENAT W/O E-YU-NJWQP-FA-OMEGA 16747246045 No Longer Active Jacque Blas MD PhD Active BACTRIM DS 800-160 MG TAB 1 tab by mouth twice daily TRIMETHOPRIM-SULFAMETHOXAZOLE 93723093887 No Longer Active Jacque Blas MD PhD Active METRONIDAZOLE 250 MG TABS 1 TID METRONIDAZOLE 42708091212 No Longer Active Jacque Blas MD PhD Active TRI-SPRINTEC 0.18/0.215/0.25 MG-35 MCG TABS 1 PO q Day NORGESTIM-ETH ESTRAD TRIPHASIC 43895396346 No Longer Active Jacque Blas MD PhD Active ALPRAZOLAM 0.25 MG TABS 1/2 tab to 1 tab PO TID PRN ALPRAZOLAM 17252498077 No Longer Active Jacque Blas MD PhD Active FLUOXETINE HCL 10 MG CAPS 2 PO q AM FLUOXETINE HCL 36686643215 No Longer Active Jacque Blas MD PhD Active ALPRAZOLAM 0.25 MG TABS 1/2 tab to 1 tab PO TID PRN ALPRAZOLAM 0.25 MG TABS 542777 ALPRAZOLAM Inactive TRI-SPRINTEC 0.18/0.215/0.25 MG-35 MCG TABS 1 PO q Day TRI-SPRINTEC 0.18/0.215/0.25 MG-35 MCG TABS 152354 NORGESTIM-ETH ESTRAD TRIPHASIC Inactive PNV-OMEGA 28-0.6-0.4-340 MG CAPS 1 pill by mouth daily PNV-OMEGA 28-0.6-0.4-340 MG CAPS PRENAT W/O [id number]-OMEGA Inactive RANITIDINE HCL 150 MG CAPS 1 twice a day RANITIDINE HCL 150 MG CAPS 272001 RANITIDINE HCL Inactive FLINSTONES GUMMIES OMEGA-3 DHA CHEW Take one by mouth daily FLINSTONES GUMMIES OMEGA-3 DHA CHEW PEDIATRIC MULTIPLE VIT-C-FA Inactive SERTRALINE HCL 50 MG TABS 1 daily for depression SERTRALINE HCL 50 MG TABS 668533 SERTRALINE HCL Inactive TYLENOL EXTRA STRENGTH 500 MG TABS 2 @ HS TYLENOL EXTRA STRENGTH 500 MG TABS 609905 ACETAMINOPHEN Inactive TRAMADOL HCL 50 MG TABS 1-2 tablets every 6 hours as needed for pain TRAMADOL HCL 50 MG TABS 689224 TRAMADOL HCL Inactive HYDROCODONE-ACETAMINOPHEN 5-325 MG TABS 1 pill three times daily as needed for pain HYDROCODONE-ACETAMINOPHEN 5-325 MG TABS 902290 HYDROCODONE-ACETAMINOPHEN Inactive CITALOPRAM HYDROBROMIDE 10 MG TABS 1 pill daily, for depression/anxiety 02/09 CITALOPRAM HYDROBROMIDE 10 MG TABS 250379 CITALOPRAM HYDROBROMIDE Inactive ROBAXIN 500 MG TAB 1-2 pills up to four times daily if needed for muscle spasms ROBAXIN 500 MG TAB 292450 METHOCARBAMOL Inactive FLUOXETINE HCL 10 MG CAPS 2 PO q AM FLUOXETINE HCL 10 MG CAPS 799706 FLUOXETINE HCL Inactive METRONIDAZOLE 250 MG TABS 1 TID METRONIDAZOLE 250 MG TABS 882133 METRONIDAZOLE Inactive BACTRIM DS 800-160 MG TAB [...] reduced Diphtheria, and acellular Pertussis Immunization) Adacel [[id number]] tetanus toxoid, reduced diphtheria toxoid, and acellular [...] Value Unit Range Description Lab Report: Chlamydia/GC APTIMA/30416 - Lab chlamydia DNA probe NOT DETECTED NOT DETECTED chlamydia DNA probe NOT DETECTED NOT DETECTED Lab Report: Chlamydia/GC APTIMA/92425 - Microbiology Neisseria gonorrhoeae DNA probe NOT [...] negative Encounters Code Encounter Date Provider Facility CPT-78217 Level 4 Est. Patient 20:19:14 CDT Jacque Blas MD [facility] CPT-79342 Level 3 Est. Patient 15:41:32 CDT Jacque Blas MD [facility] CPT-60038 Level 3 Est. Patient 18:02:00 NEURODIAGNOSTIC TECHNICIAN Jacque Blas MD PhD [facility] CPT-18166 Level 3 Est. Patient 21:41:26 NEURODIAGNOSTIC TECHNICIAN Jacque Blas MD PhD [facility] CPT-74038 Level 4 Est. Patient 14:43:47 NEURODIAGNOSTIC TECHNICIAN Jacque Blas MD [facility]-00448 Level 3 Est. Patient 20:16:54 NEURODIAGNOSTIC TECHNICIAN Jacque Blas MD PhD [facility] CPT-03200 Level 3 Est. Patient 13:31:37 CDT Jacque Blas MD [facility]-06131 Level 3 New Patient 18:16:07 CDT Jacque Blas MD PhD [facility] Procedures Code Procedure Name Date Entry Date Standard Description CPT-54826 LS spine comp w obliq 15:53:02 NEURODIAGNOSTIC TECHNICIAN CPT-10725 C-Spine Min 4V 15:53:02 NEURODIAGNOSTIC TECHNICIAN CPT-37428 UHCG (floor use only) 14:15:45 CDT CPT-66384 UHCG (floor use only) 14:09:15 CDT CPT-J7302 Mirena IUD 13:30:58 CDT CPT-77801 Insertion of IUD 13:30:58 CDT CPT-OV Office Visit 13:30:58 CDT CPT-09572 Visit 10:48:09 CDT CPT-10273 Visit 15:34:57 CDT CPT-17980 Visit 15:25:55 CDT CPT-83733 Visit 13:58:45 CDT CPT-31648 Sono OB comp > 14 weeks 16:57:22 CDT CPT-LR Lesion Removal 09:33:27 CDT CPT-90086 Visit 12:50:42 CDT CPT-39274 Visit 18:34:25 CDT CPT-000 Give Appropriate Tetanus Booster 09:16:14 CDT CPT-20287 Administration single or combination vaccine inc oral 11 :36:32 CDT CPT-19936 Tdap 11:36:32 CDT CPT-22088 Visit 09:16:14 CDT CPT-67627 Visit 13:35:24 CDT CPT-04600 Sono OB comp > 14 weeks 11:46:07 CDT CPT-48839 Visit 17:08:15 CDT CPT-49419 Sono OB comp <14 weeks 15:47:19 NEURODIAGNOSTIC TECHNICIAN CPT-06285 Visit 13:28:37 CDT CPT-98403 Spec Collection and Handling Fee 12:41:37 CDT CPT-32512 Visit 12:41:07 CDT CPT-93682 Visit 18:48:53 CDT CPT-15200 Visit 16:25:17 CDT CPT-00475 Sono OB comp > 14 weeks 11:38:18 CDT CPT-31801 Visit 13:36:17 CDT CPT-80527 Visit 13:48:22 CDT
--- OUTSIDE RECORDS SUMMARY | 2019-01-13 20:54 | XMS REPORT | Clinical Summary ---
Author Author Admin, MARCO ANTONIO [facility] Address Unknown Phone Unavailable Allergies, Adverse [...] weeks, then 2 pills daily 07/26 LAMOTRIGINE [id number] Active Jacque Blas MD PhD Active ROBAXIN 500 MG TAB 1-2 pills up to four times daily if needed for muscle spasms METHOCARBAMOL 57842548411 No Longer Active Jacque Blas MD PhD Active CITALOPRAM HYDROBROMIDE 10 MG TABS 1 pill daily, for depression/anxiety 02/09 CITALOPRAM HYDROBROMIDE 39189281677 No Longer Active Jacque Blas MD PhD Active HYDROCODONE-ACETAMINOPHEN 7.5-325 MG TABS 1 four times a day as needed for pain HYDROCODONE-ACETAMINOPHEN 95185191214 Active Jacque Blas MD PhD Active HYDROCODONE-ACETAMINOPHEN 5-325 MG TABS 1 pill three times daily as needed for pain HYDROCODONE-ACETAMINOPHEN 07265806537 No Longer Active Jacque Blas MD PhD Active IBUPROFEN 600 MG TAB 1 pill four times daily, with food IBUPROFEN 95551943245 Active Jacque Blas MD PhD Active TRAMADOL HCL 50 MG TABS 1-2 tablets every 6 hours as needed for pain TRAMADOL HCL 18572799709 No Longer Active Jacque Blas MD PhD Active TYLENOL EXTRA STRENGTH 500 MG TABS 2 @ HS ACETAMINOPHEN 16466428611 No Longer Active Jacque Blas MD PhD Active SERTRALINE HCL 50 MG TABS 1 daily for depression SERTRALINE HCL 01896677061 No Longer Active Jacque Blas MD PhD Active BACTRIM DS 800-160 MG TAB 1 tab by mouth twice daily TRIMETHOPRIM-SULFAMETHOXAZOLE 88733364271 No Longer Active Eva Alejo APRN Active FLINSTONES GUMMIES OMEGA-3 DHA CHEW Take one by mouth daily PEDIATRIC MULTIPLE VIT-C-FA 28128271933 No Longer Active Jacque Blas MD PhD Active RANITIDINE HCL 150 MG CAPS 1 twice a day RANITIDINE HCL 62324415342 No Longer Active Jacque Blsa MD PhD Active PNV-OMEGA 28-0.6-0.4-340 MG CAPS 1 pill by mouth daily PRENAT W/O L-JJ-KCPNP-FA-OMEGA 17777284050 No Longer Active Jacque Blas MD PhD Active BACTRIM DS 800-160 MG TAB 1 tab by mouth twice daily TRIMETHOPRIM-SULFAMETHOXAZOLE 49626029660 No Longer Active Jacque Blas MD PhD Active METRONIDAZOLE 250 MG TABS 1 TID METRONIDAZOLE 75929841010 No Longer Active Jacque Blas MD PhD Active TRI-SPRINTEC 0.18/0.215/0.25 MG-35 MCG TABS 1 PO q Day NORGESTIM-ETH ESTRAD TRIPHASIC 39012101201 No Longer Active Jacque Blas MD PhD Active ALPRAZOLAM 0.25 MG TABS 1/2 tab to 1 tab PO TID PRN ALPRAZOLAM 70853375146 No Longer Active Jacque Blas MD PhD Active FLUOXETINE HCL 10 MG CAPS 2 PO q AM FLUOXETINE HCL 66665301918 No Longer Active Jacque Blas MD PhD Active ALPRAZOLAM 0.25 MG TABS 1/2 tab to 1 tab PO TID PRN ALPRAZOLAM 0.25 MG TABS 195751 ALPRAZOLAM Inactive TRI-SPRINTEC 0.18/0.215/0.25 MG-35 MCG TABS 1 PO q Day TRI-SPRINTEC 0.18/0.215/0.25 MG-35 MCG TABS 955737 NORGESTIM-ETH ESTRAD TRIPHASIC Inactive PNV-OMEGA 28-0.6-0.4-340 MG CAPS 1 pill by mouth daily PNV-OMEGA 28-0.6-0.4-340 MG CAPS PRENAT W/O Z-[id number]-FA-OMEGA Inactive RANITIDINE HCL 150 MG CAPS 1 twice a day RANITIDINE HCL 150 MG CAPS 785349 RANITIDINE HCL Inactive FLINSTONES GUMMIES OMEGA-3 DHA CHEW Take one by mouth daily FLINSTONES GUMMIES OMEGA-3 DHA CHEW PEDIATRIC MULTIPLE VIT-C-FA Inactive SERTRALINE HCL 50 MG TABS 1 daily for depression SERTRALINE HCL 50 MG TABS 975603 SERTRALINE HCL Inactive TYLENOL EXTRA STRENGTH 500 MG TABS 2 @ HS TYLENOL EXTRA STRENGTH 500 MG TABS 378765 ACETAMINOPHEN Inactive TRAMADOL HCL 50 MG TABS 1-2 tablets every 6 hours as needed for pain TRAMADOL HCL 50 MG TABS 699646 TRAMADOL HCL Inactive HYDROCODONE-ACETAMINOPHEN 5-325 MG TABS 1 pill three times daily as needed for pain HYDROCODONE-ACETAMINOPHEN 5-325 MG TABS 341669 HYDROCODONE-ACETAMINOPHEN Inactive CITALOPRAM HYDROBROMIDE 10 MG TABS 1 pill daily, for depression/anxiety 02/09 CITALOPRAM HYDROBROMIDE 10 MG TABS 378826 CITALOPRAM HYDROBROMIDE Inactive ROBAXIN 500 MG TAB 1-2 pills up to four times daily if needed for muscle spasms ROBAXIN 500 MG TAB 708800 METHOCARBAMOL Inactive FLUOXETINE HCL 10 MG CAPS 2 PO q AM FLUOXETINE HCL 10 MG CAPS 332844 FLUOXETINE HCL Inactive METRONIDAZOLE 250 MG TABS 1 TID METRONIDAZOLE 250 MG TABS 498614 METRONIDAZOLE Inactive BACTRIM DS 800-160 MG TAB [...] given Td(adult) unspecified formulation Adacel immunization Adacel [[id number]] tetanus toxoid, reduced diphtheria toxoid, and acellular [...] Value Unit Range Description Lab Report: Chlamydia/GC APTIMA/04689 - Lab chlamydia DNA probe NOT DETECTED NOT DETECTED Lab Report: Chlamydia/GC APTIMA/64376 - Microbiology Neisseria gonorrhoeae DNA probe NOT [...] negative Encounters Code Encounter Date Provider Facility CPT-26338 Level 3 Est. Patient 14:38:20 CDT Jacque Blas MD PhD [facility] CPT-29768 Level 4 Est. Patient 20:19:14 CDT Jacque Blas MD PhD [facility] CPT-14405 Level 3 Est. Patient 15:41:32 CDT Jacque Blas MD [facility] CPT-96755 Level 3 Est. Patient 18:02:00 MISCELLANEOUS MACHINE OPERATOR Jacque Blas MD [facility] CPT-74113 Level 3 Est. Patient 21:41:26 MISCELLANEOUS MACHINE OPERATOR Jacque Blas MD [facility] CPT-14495 Level 4 Est. Patient 14:43:47 MISCELLANEOUS MACHINE OPERATOR Jacque Blas MD [facility] CPT-86084 Level 3 Est. Patient 20:16:54 MISCELLANEOUS MACHINE OPERATOR Jacque Blas MD [facility] CPT-63745 Level 3 Est. Patient 13:31:37 CDT Jacque Blas MD [facility] CPT-18887 Level 3 New Patient 18:16:07 CDT Jacque Blas MD [facility] Procedures Code Procedure Name Date Entry Date Standard Description CPT-35545 LS spine comp w obliq 15:53:02 MISCELLANEOUS MACHINE OPERATOR CPT-85945 C-Spine Min 4V 15:53:02 MISCELLANEOUS MACHINE OPERATOR CPT-61340 UHCG (floor use only) 14:15:45 CDT CPT-24214 UHCG (floor use only) 14:09:15 CDT CPT-J7302 Mirena IUD 13:30:58 CDT CPT-12863 Insertion of IUD 13:30:58 CDT CPT-OV Office Visit 13:30:58 CDT CPT-74012 Visit 10:48:09 CDT CPT-77956 Visit 15:34:57 CDT CPT-34326 Visit 15:25:55 CDT CPT-85151 Visit 13:58:45 CDT CPT-25494 Sono OB comp > 14 weeks 16:57:22 CDT CPT-LR Lesion Removal 09:33:27 CDT CPT-02733 Visit 12:50:42 CDT CPT-69671 Visit 18:34:25 CDT CPT-000 Give Appropriate Tetanus Booster 09:16:14 CDT CPT-04038 Administration single or combination vaccine inc oral 11 :36:32 CDT CPT-06181 Tdap 11:36:32 CDT CPT-39659 Visit 09:16:14 CDT CPT-34966 Visit 13:35:24 CDT CPT-90519 Sono OB comp > 14 weeks 11:46:07 CDT CPT-95857 Visit 17:08:15 CDT CPT-56480 Sono OB comp <14 weeks 15:47:19 MISCELLANEOUS MACHINE OPERATOR CPT-73461 Visit 13:28:37 CDT CPT-90823 Spec Collection and Handling Fee 12:41:37 CDT CPT-69875 Visit 12:41:07 CDT CPT-02797 Visit 18:48:53 CDT CPT-96084 Visit 16:25:17 CDT CPT-37517 Sono OB comp > 14 weeks 11:38:18 CDT CPT-79111 Visit 13:36:17 CDT CPT-63792 Visit 13:48:22 CDT
--- OUTSIDE RECORDS SUMMARY | 2019-01-13 20:54 | XMS REPORT | Clinical Summary ---
Author Author Admin, MARCO ANTONIO [facility] Address Unknown Phone Allergies, Adverse Reactions, Alerts [...] pill daily, for depression/anxiety 02/09 CITALOPRAM HYDROBROMIDE 89692089382 Active Jacque Blas MD PhD Active HYDROCODONE-ACETAMINOPHEN 7.5-325 MG TABS 1 four times a day as needed for pain HYDROCODONE-ACETAMINOPHEN 14731560711 Active Bruce Vicente MD Active HYDROCODONE-ACETAMINOPHEN 5-325 MG TABS 1 pill three times daily as needed for pain HYDROCODONE-ACETAMINOPHEN 78496029688 No Longer Active Jacque Blas MD PhD Active ROBAXIN 500 MG TAB 1-2 pills up to four times daily if needed for muscle spasms METHOCARBAMOL 71376922675 Active Jacque Blas MD PhD Active IBUPROFEN 600 MG TAB 1 pill four times daily, with food IBUPROFEN 53204452857 Active Jacque Blas MD PhD Active TRAMADOL HCL 50 MG TABS 1-2 tablets every 6 hours as needed for pain TRAMADOL HCL 29103083722 No Longer Active Jacque Blas MD PhD Active TYLENOL EXTRA STRENGTH 500 MG TABS 2 @ HS ACETAMINOPHEN 85184313711 No Longer Active Jacque Blas MD PhD Active SERTRALINE HCL 50 MG TABS 1 daily for depression SERTRALINE HCL 24697844240 No Longer Active Jacque Blas MD PhD Active BACTRIM DS 800-160 MG TAB 1 tab by mouth twice daily TRIMETHOPRIM-SULFAMETHOXAZOLE 15439778880 No Longer Active Eva Alejo APRN Active FLINSTONES GUMMIES OMEGA-3 DHA CHEW Take one by mouth daily PEDIATRIC MULTIPLE VIT-C-FA 60411932145 No Longer Active Jacque Blas MD PhD Active RANITIDINE HCL 150 MG CAPS 1 twice a day RANITIDINE HCL 98828456697 No Longer Active Jacque Blas MD PhD Active PNV-OMEGA 28-0.6-0.4-340 MG CAPS 1 pill by mouth daily PRENAT W/O T-ZI-AVIGB-FA-OMEGA 20225447699 No Longer Active Jacque Blas MD PhD Active BACTRIM DS 800-160 MG TAB 1 tab by mouth twice daily TRIMETHOPRIM-SULFAMETHOXAZOLE 18665563216 No Longer Active Jacque Blas MD PhD Active METRONIDAZOLE 250 MG TABS 1 TID METRONIDAZOLE 49702050572 No Longer Active Jacque Blas MD PhD Active TRI-SPRINTEC 0.18/0.215/0.25 MG-35 MCG TABS 1 PO q Day NORGESTIM-ETH ESTRAD TRIPHASIC 35993954287 No Longer Active Jacque Blas MD PhD Active ALPRAZOLAM 0.25 MG TABS 1/2 tab to 1 tab PO TID PRN ALPRAZOLAM 31484438355 No Longer Active Jacque Blas MD PhD Active FLUOXETINE HCL 10 MG CAPS 2 PO q AM FLUOXETINE HCL 52384971837 No Longer Active Jacuqe Blas MD PhD Active ALPRAZOLAM 0.25 MG TABS 1/2 tab to 1 tab PO TID PRN ALPRAZOLAM 0.25 MG TABS 912011 ALPRAZOLAM Inactive TRI-SPRINTEC 0.18/0.215/0.25 MG-35 MCG TABS 1 PO q Day TRI-SPRINTEC 0.18/0.215/0.25 MG-35 MCG TABS 813602 NORGESTIM-ETH ESTRAD TRIPHASIC Inactive PNV-OMEGA 28-0.6-0.4-340 MG CAPS 1 pill by mouth daily PNV-OMEGA 28-0.6-0.4-340 MG CAPS PRENAT W/O C-QZ-EBBEL-FA-OMEGA Inactive RANITIDINE HCL 150 MG CAPS 1 twice a day RANITIDINE HCL 150 MG CAPS 079345 RANITIDINE HCL Inactive FLINSTONES GUMMIES OMEGA-3 DHA CHEW Take one by mouth daily FLINSTONES GUMMIES OMEGA-3 DHA CHEW PEDIATRIC MULTIPLE VIT-C-FA Inactive SERTRALINE HCL 50 MG TABS 1 daily for depression SERTRALINE HCL 50 MG TABS 112448 SERTRALINE HCL Inactive TYLENOL EXTRA STRENGTH 500 MG TABS 2 @ HS TYLENOL EXTRA STRENGTH 500 MG TABS 963772 ACETAMINOPHEN Inactive TRAMADOL HCL 50 MG TABS 1-2 tablets every 6 hours as needed for pain TRAMADOL HCL 50 MG TABS 151447 TRAMADOL HCL Inactive HYDROCODONE-ACETAMINOPHEN 5-325 MG TABS 1 pill three times daily as needed for pain HYDROCODONE-ACETAMINOPHEN 5-325 MG TABS 944524 HYDROCODONE-ACETAMINOPHEN Inactive FLUOXETINE HCL 10 MG CAPS 2 PO q AM FLUOXETINE HCL 10 MG CAPS 336447 FLUOXETINE HCL Inactive METRONIDAZOLE 250 MG TABS 1 TID METRONIDAZOLE 250 MG TABS 522421 METRONIDAZOLE Inactive BACTRIM DS 800-160 MG TAB 1 tab by mouth twice daily BACTRIM DS 800-160 MG TAB TRIMETHOPRIM-SULFAMETHOXAZOLE Inactive BACTRIM DS 800-160 MG TAB 1 tab by mouth twice daily BACTRIM DS 800-160 MG TAB TRIMETHOPRIM-SULFAMETHOXAZOLE Inactive Advance Directives Directive Description Start Date PERMISSION TO SHARE Immunizations Vaccine Administration Date Value Standard Description Adacel (Tetanus, reduced Diphtheria, and acellular Pertussis Immunization) Adacel [[id number]] tetanus toxoid, reduced diphtheria toxoid, and acellular [...] Value Unit Range Description Lab Report: Chlamydia/GC APTIMA/72005 - Lab chlamydia DNA probe NOT DETECTED NOT DETECTED Lab Report: Chlamydia/GC APTIMA/42834 - Microbiology Neisseria gonorrhoeae DNA probe NOT [...] negative Encounters Code Encounter Date Provider Facility CPT-59732 Level 3 Est. Patient 15:41:32 CDT Jacque Blas MD PhD [facility] CPT-71837 Level 3 Est. Patient 18:02:00 HAND MIXER Jacque Blas MD PhD [facility] CPT-91846 Level 3 Est. Patient 21:41:26 HAND MIXER Jacque Blas MD [facility] CPT-25595 Level 4 Est. Patient 14:43:47 HAND MIXER Jacque Blas MD [facility] CPT-12745 Level 3 Est. Patient 20:16:54 HAND MIXER Jacque Blas MD [facility] CPT-57723 Level 3 Est. Patient 13:31:37 CDT Jacque Blas MD [facility] CPT-67228 Level 3 New Patient 18:16:07 CDT Jacque Blas MD [facility] Procedures Code Procedure Name Date Entry Date Standard Description CPT-88614 LS spine comp w obliq 15:53:02 HAND MIXER CPT-16235 C-Spine Min 4V 15:53:02 HAND MIXER CPT-37397 UHCG (floor use only) 14:15:45 CDT CPT-18693 UHCG (floor use only) 14:09:15 CDT CPT-J7302 Mirena IUD 13:30:58 CDT CPT-30368 Insertion of IUD 13:30:58 CDT CPT-OV Office Visit 13:30:58 CDT CPT-77934 Visit 10:48:09 CDT CPT-11636 Visit 15:34:57 CDT CPT-03197 Visit 15:25:55 CDT CPT-18562 Visit 13:58:45 CDT CPT-49919 Sono OB comp > 14 weeks 16:57:22 CDT CPT-LR Lesion Removal 09:33:27 CDT CPT-52231 Visit 12:50:42 CDT CPT-69923 Visit 18:34:25 CDT CPT-000 Give Appropriate Tetanus Booster 09:16:14 CDT CPT-55826 Administration single or combination vaccine inc oral 11 :36:32 CDT CPT-74397 Tdap 11:36:32 CDT CPT-48244 Visit 09:16:14 CDT CPT-71189 Visit 13:35:24 CDT CPT-44765 Sono OB comp > 14 weeks 11:46:07 CDT CPT-26855 Visit 17:08:15 CDT CPT-73641 Sono OB comp <14 weeks 15:47:19 HAND MIXER CPT-35877 Visit 13:28:37 CDT CPT-78782 Spec Collection and Handling Fee 12:41:37 CDT CPT-42166 Visit 12:41:07 CDT CPT-34203 Visit 18:48:53 CDT CPT-04494 Visit 16:25:17 CDT CPT-45342 Sono OB comp > 14 weeks 11:38:18 CDT CPT-15023 Visit 13:36:17 CDT CPT-34092 Visit 13:48:22 CDT
--- OUTSIDE RECORDS SUMMARY | 2019-01-13 20:55 | XMS REPORT | Clinical Summary ---
Author Author Admin, MARCO ANTONIO [facility] Address Unknown Phone Unavailable Allergies, Adverse Reactions, [...] daily if needed for muscle spasms METHOCARBAMOL 52299302703 No Longer Active Jacque Blas MD PhD Active CITALOPRAM HYDROBROMIDE 10 MG TABS 1 pill daily, for depression/anxiety 02/09 CITALOPRAM HYDROBROMIDE 15777171659 No Longer Active Jacque Blas MD PhD Active HYDROCODONE-ACETAMINOPHEN 7.5-325 MG TABS 1 four times a day as needed for pain HYDROCODONE-ACETAMINOPHEN 16407477139 Active Bruce Vicente MD Active HYDROCODONE-ACETAMINOPHEN 5-325 MG TABS 1 pill three times daily as needed for pain HYDROCODONE-ACETAMINOPHEN 82941626701 No Longer Active Jacque Blas MD PhD Active IBUPROFEN 600 MG TAB 1 pill four times daily, with food IBUPROFEN 21032020488 Active Jacque Blas MD PhD Active TRAMADOL HCL 50 MG TABS 1-2 tablets every 6 hours as needed for pain TRAMADOL HCL 62210088051 No Longer Active Jacque Blas MD PhD Active TYLENOL EXTRA STRENGTH 500 MG TABS 2 @ HS ACETAMINOPHEN 02435769502 No Longer Active Jacque Blas MD PhD Active SERTRALINE HCL 50 MG TABS 1 daily for depression SERTRALINE HCL 57372002808 No Longer Active Jacque Blas MD PhD Active BACTRIM DS 800-160 MG TAB 1 tab by mouth twice daily TRIMETHOPRIM-SULFAMETHOXAZOLE 38262001362 No Longer Active Eva Alejo APRN Active FLINSTONES GUMMIES OMEGA-3 DHA CHEW Take one by mouth daily PEDIATRIC MULTIPLE VIT-C-FA 00938219524 No Longer Active Jacque Blas MD PhD Active RANITIDINE HCL 150 MG CAPS 1 twice a day RANITIDINE HCL 27995891078 No Longer Active Jacque Blas MD PhD Active PNV-OMEGA 28-0.6-0.4-340 MG CAPS 1 pill by mouth daily PRENAT W/O E-SO-RDULC-FA-OMEGA 91944009114 No Longer Active Jacque Blas MD PhD Active BACTRIM DS 800-160 MG TAB 1 tab by mouth twice daily TRIMETHOPRIM-SULFAMETHOXAZOLE 29504199951 No Longer Active Jacque Blas MD PhD Active METRONIDAZOLE 250 MG TABS 1 TID METRONIDAZOLE 90882962706 No Longer Active Jacque Blas MD PhD Active TRI-SPRINTEC 0.18/0.215/0.25 MG-35 MCG TABS 1 PO q Day NORGESTIM-ETH ESTRAD TRIPHASIC 37559956741 No Longer Active Jacque Blas MD PhD Active ALPRAZOLAM 0.25 MG TABS 1/2 tab to 1 tab PO TID PRN ALPRAZOLAM 03026578874 No Longer Active Jacque Blas MD PhD Active FLUOXETINE HCL 10 MG CAPS 2 PO q AM FLUOXETINE HCL 10646031032 No Longer Active Jacque Blas MD PhD Active ALPRAZOLAM 0.25 MG TABS 1/2 tab to 1 tab PO TID PRN ALPRAZOLAM 0.25 MG TABS 202193 ALPRAZOLAM Inactive TRI-SPRINTEC 0.18/0.215/0.25 MG-35 MCG TABS 1 PO q Day TRI-SPRINTEC 0.18/0.215/0.25 MG-35 MCG TABS 750556 NORGESTIM-ETH ESTRAD TRIPHASIC Inactive PNV-OMEGA 28-0.6-0.4-340 MG CAPS 1 pill by mouth daily PNV-OMEGA 28-0.6-0.4-340 MG CAPS PRENAT W/O N-HP-QLRTO-FA-OMEGA Inactive RANITIDINE HCL 150 MG CAPS 1 twice a day RANITIDINE HCL 150 MG CAPS 235274 RANITIDINE HCL Inactive FLINSTONES GUMMIES OMEGA-3 DHA CHEW Take one by mouth daily FLINSTONES GUMMIES OMEGA-3 DHA CHEW PEDIATRIC MULTIPLE VIT-C-FA Inactive SERTRALINE HCL 50 MG TABS 1 daily for depression SERTRALINE HCL 50 MG TABS 826161 SERTRALINE HCL Inactive TYLENOL EXTRA STRENGTH 500 MG TABS 2 @ HS TYLENOL EXTRA STRENGTH 500 MG TABS 604615 ACETAMINOPHEN Inactive TRAMADOL HCL 50 MG TABS 1-2 tablets every 6 hours as needed for pain TRAMADOL HCL 50 MG TABS 787990 TRAMADOL HCL Inactive HYDROCODONE-ACETAMINOPHEN 5-325 MG TABS 1 pill three times daily as needed for pain HYDROCODONE-ACETAMINOPHEN 5-325 MG TABS 753994 HYDROCODONE-ACETAMINOPHEN Inactive CITALOPRAM HYDROBROMIDE 10 MG TABS 1 pill daily, for depression/anxiety 02/09 CITALOPRAM HYDROBROMIDE 10 MG TABS 747382 CITALOPRAM HYDROBROMIDE Inactive ROBAXIN 500 MG TAB 1-2 pills up to four times daily if needed for muscle spasms ROBAXIN 500 MG TAB 509982 METHOCARBAMOL Inactive FLUOXETINE HCL 10 MG CAPS 2 PO q AM FLUOXETINE HCL 10 MG CAPS 179701 FLUOXETINE HCL Inactive METRONIDAZOLE 250 MG TABS 1 TID METRONIDAZOLE 250 MG TABS 952275 METRONIDAZOLE Inactive BACTRIM DS 800-160 MG TAB [...] reduced Diphtheria, and acellular Pertussis Immunization) Adacel [[id number]] tetanus toxoid, reduced diphtheria toxoid, and acellular [...] Value Unit Range Description Lab Report: Chlamydia/GC APTIMA/65412 - Lab chlamydia DNA probe NOT DETECTED NOT DETECTED chlamydia DNA probe NOT DETECTED NOT DETECTED Lab Report: Chlamydia/GC APTIMA/87071 - Microbiology Neisseria gonorrhoeae DNA probe NOT [...] negative Encounters Code Encounter Date Provider Facility CPT-85504 Level 4 Est. Patient 20:19:14 CDT Jacque Blas MD [facility] CPT-67163 Level 3 Est. Patient 15:41:32 CDT Jacque Blas MD [facility] CPT-47784 Level 3 Est. Patient 18:02:00 PATIENT FINANCIAL SERVICES SPECIALIST Jacque Blas MD PhD [facility] CPT-94316 Level 3 Est. Patient 21:41:26 PATIENT FINANCIAL SERVICES SPECIALIST Jacque Blas MD PhD [facility] CPT-22251 Level 4 Est. Patient 14:43:47 PATIENT FINANCIAL SERVICES SPECIALIST Jacque Blas MD [facility] [place][note 2]-71688 Level 3 Est. Patient 20:16:54 PATIENT FINANCIAL SERVICES SPECIALIST Jacque Blas MD PhD [facility] CPT-35825 Level 3 Est. Patient 13:31:37 CDT Jacque Blas MD [facility] [place][note 2]-33097 Level 3 New Patient 18:16:07 CDT Jacqeu Blas MD PhD [facility] Procedures Code Procedure Name Date Entry Date Standard Description CPT-72590 LS spine comp w obliq 15:53:02 PATIENT FINANCIAL SERVICES SPECIALIST CPT-13135 C-Spine Min 4V 15:53:02 PATIENT FINANCIAL SERVICES SPECIALIST CPT-20477 UHCG (floor use only) 14:15:45 CDT CPT-75688 UHCG (floor use only) 14:09:15 CDT CPT-J7302 Mirena IUD 13:30:58 CDT CPT-51671 Insertion of IUD 13:30:58 CDT CPT-OV Office Visit 13:30:58 CDT CPT-84370 Visit 10:48:09 CDT CPT-41939 Visit 15:34:57 CDT CPT-67631 Visit 15:25:55 CDT CPT-28943 Visit 13:58:45 CDT CPT-92535 Sono OB comp > 14 weeks 16:57:22 CDT CPT-LR Lesion Removal 09:33:27 CDT CPT-34814 Visit 12:50:42 CDT CPT-24499 Visit 18:34:25 CDT CPT-000 Give Appropriate Tetanus Booster 09:16:14 CDT CPT-87391 Administration single or combination vaccine inc oral 11 :36:32 CDT CPT-21020 Tdap 11:36:32 CDT CPT-47918 Visit 09:16:14 CDT CPT-66232 Visit 13:35:24 CDT CPT-95612 Sono OB comp > 14 weeks 11:46:07 CDT CPT-48951 Visit 17:08:15 CDT CPT-25709 Sono OB comp <14 weeks 15:47:19 PATIENT FINANCIAL SERVICES SPECIALIST CPT-75011 Visit 13:28:37 CDT CPT-16584 Spec Collection and Handling Fee 12:41:37 CDT CPT-93778 Visit 12:41:07 CDT CPT-87017 Visit 18:48:53 CDT CPT-84944 Visit 16:25:17 CDT CPT-25899 Sono OB comp > 14 weeks 11:38:18 CDT CPT-81435 Visit 13:36:17 CDT CPT-09801 Visit 13:48:22 CDT
--- OUTSIDE RECORDS SUMMARY | 2019-01-13 20:56 | XMS REPORT | Clinical Summary ---
Author Author Admin, MARCO ANTONIO [facility] Address Unknown Phone Allergies, Adverse Reactions, Alerts Allergy Name Reaction Description Start Date Severity Status Provider No Known Allergies Cecelia Russell [facility] Conditions or Problems Problem Name Problem Code [...] management Low back pain 724.2 Active Jacque Blsa MD PhD Lumbago Neck pain 723.1 Active [...] pill daily, for depression/anxiety 02/09 CITALOPRAM HYDROBROMIDE 60959011813 Active Jacque Blas MD PhD Active HYDROCODONE-ACETAMINOPHEN 7.5-325 MG TABS 1 four times a day as needed for pain HYDROCODONE-ACETAMINOPHEN 23943348839 Active Jacque Blas MD PhD Active HYDROCODONE-ACETAMINOPHEN 5-325 MG TABS 1 pill three times daily as needed for pain HYDROCODONE-ACETAMINOPHEN 20092655716 No Longer Active Jacque Blas MD PhD Active ROBAXIN 500 MG TAB 1-2 pills up to four times daily if needed for muscle spasms METHOCARBAMOL 46003228466 Active Jacque Blas MD PhD Active IBUPROFEN 600 MG TAB 1 pill four times daily, with food IBUPROFEN 60207243050 Active Jacque Blas MD PhD Active TRAMADOL HCL 50 MG TABS 1-2 tablets every 6 hours as needed for pain TRAMADOL HCL 93812977914 No Longer Active Jacque Blas MD PhD Active TYLENOL EXTRA STRENGTH 500 MG TABS 2 @ HS ACETAMINOPHEN 70989212977 No Longer Active Jacque Blas MD PhD Active SERTRALINE HCL 50 MG TABS 1 daily for depression SERTRALINE HCL 08166381251 No Longer Active Jacque Blas MD PhD Active BACTRIM DS 800-160 MG TAB 1 tab by mouth twice daily TRIMETHOPRIM-SULFAMETHOXAZOLE 77168416178 No Longer Active Eva Alejo APRN Active FLINSTONES GUMMIES OMEGA-3 DHA CHEW Take one by mouth daily PEDIATRIC MULTIPLE VIT-C-FA 45933964925 No Longer Active Jacque Blas MD PhD Active RANITIDINE HCL 150 MG CAPS 1 twice a day RANITIDINE HCL 08685658320 No Longer Active Jacque Blas MD PhD Active PNV-OMEGA 28-0.6-0.4-340 MG CAPS 1 pill by mouth daily PRENAT W/O T-KA-DVEUP-FA-OMEGA 65127782394 No Longer Active Jacque Blas MD PhD Active BACTRIM DS 800-160 MG TAB 1 tab by mouth twice daily TRIMETHOPRIM-SULFAMETHOXAZOLE 35522908720 No Longer Active Jacque Blas MD PhD Active METRONIDAZOLE 250 MG TABS 1 TID METRONIDAZOLE 53270755030 No Longer Active Jacque Blas MD PhD Active TRI-SPRINTEC 0.18/0.215/0.25 MG-35 MCG TABS 1 PO q Day NORGESTIM-ETH ESTRAD TRIPHASIC 74395404416 No Longer Active Jacque Blas MD PhD Active ALPRAZOLAM 0.25 MG TABS 1/2 tab to 1 tab PO TID PRN ALPRAZOLAM 33747423607 No Longer Active Jacque Blas MD PhD Active FLUOXETINE HCL 10 MG CAPS 2 PO q AM FLUOXETINE HCL 15745441503 No Longer Active Jacque Blas MD PhD Active ALPRAZOLAM 0.25 MG TABS 1/2 tab to 1 tab PO TID PRN ALPRAZOLAM 0.25 MG TABS 818005 ALPRAZOLAM Inactive TRI-SPRINTEC 0.18/0.215/0.25 MG-35 MCG TABS 1 PO q Day TRI-SPRINTEC 0.18/0.215/0.25 MG-35 MCG TABS 975555 NORGESTIM-ETH ESTRAD TRIPHASIC Inactive PNV-OMEGA 28-0.6-0.4-340 MG CAPS 1 pill by mouth daily PNV-OMEGA 28-0.6-0.4-340 MG CAPS PRENAT W/O [id number]-OMEGA Inactive RANITIDINE HCL 150 MG CAPS 1 twice a day RANITIDINE HCL 150 MG CAPS 153585 RANITIDINE HCL Inactive FLINSTONES GUMMIES OMEGA-3 DHA CHEW Take one by mouth daily FLINSTONES GUMMIES OMEGA-3 DHA CHEW PEDIATRIC MULTIPLE VIT-C-FA Inactive SERTRALINE HCL 50 MG TABS 1 daily for depression SERTRALINE HCL 50 MG TABS 280362 SERTRALINE HCL Inactive TYLENOL EXTRA STRENGTH 500 MG TABS 2 @ HS TYLENOL EXTRA STRENGTH 500 MG TABS 481589 ACETAMINOPHEN Inactive TRAMADOL HCL 50 MG TABS 1-2 tablets every 6 hours as needed for pain TRAMADOL HCL 50 MG TABS 493275 TRAMADOL HCL Inactive HYDROCODONE-ACETAMINOPHEN 5-325 MG TABS 1 pill three times daily as needed for pain HYDROCODONE-ACETAMINOPHEN 5-325 MG TABS 336393 HYDROCODONE-ACETAMINOPHEN Inactive FLUOXETINE HCL 10 MG CAPS 2 PO q AM FLUOXETINE HCL 10 MG CAPS 300488 FLUOXETINE HCL Inactive METRONIDAZOLE 250 MG TABS 1 TID METRONIDAZOLE 250 MG TABS 658272 METRONIDAZOLE Inactive BACTRIM DS 800-160 MG TAB 1 tab by mouth twice daily BACTRIM DS 800-160 MG TAB TRIMETHOPRIM-SULFAMETHOXAZOLE Inactive BACTRIM DS 800-160 MG TAB 1 tab by mouth twice daily BACTRIM DS 800-160 MG TAB TRIMETHOPRIM-SULFAMETHOXAZOLE Inactive Advance Directives Directive Description Start Date PERMISSION TO SHARE Immunizations Vaccine Administration Date Value Standard Description Adacel immunization Adacel [[id number]] tetanus toxoid, reduced diphtheria toxoid, and acellular [...] serum NO ANTIBODIES DETECTED Lab Report: Chlamydia/GC APTIMA/15015 - Lab chlamydia DNA probe NOT DETECTED NOT DETECTED Lab Report: Chlamydia/GC APTIMA/50737 - Microbiology Neisseria gonorrhoeae DNA probe NOT [...] negative Encounters Code Encounter Date Provider Facility CPT-95269 Level 3 Est. Patient 15:41:32 CDT Jacque Blas MD [facility] CPT-46353 Level 3 Est. Patient 18:02:00 MEDICAL INSURANCE CLAIMS SPECIALIST Jacque Blas MD [facility] CPT-03365 Level 3 Est. Patient 21:41:26 MEDICAL INSURANCE CLAIMS SPECIALIST Jacque Blas MD [facility] CPT-57420 Level 4 Est. Patient 14:43:47 MEDICAL INSURANCE CLAIMS SPECIALIST Jacque Blas MD [facility] CPT-33226 Level 3 Est. Patient 20:16:54 MEDICAL INSURANCE CLAIMS SPECIALIST Jacque Blas MD [facility] CPT-17092 Level 3 Est. Patient 13:31:37 CDT Jacque Blas MD [facility] CPT-19960 Level 3 New Patient 18:16:07 CDT Jacque Blas MD [facility] Procedures Code Procedure Name Date Entry Date Standard Description CPT-01285 LS spine comp w obliq 15:53:02 MEDICAL INSURANCE CLAIMS SPECIALIST CPT-22378 C-Spine Min 4V 15:53:02 MEDICAL INSURANCE CLAIMS SPECIALIST CPT-29610 UHCG (floor use only) 14:15:45 CDT CPT-33414 UHCG (floor use only) 14:09:15 CDT CPT-J7302 Mirena IUD 13:30:58 CDT CPT-05506 Insertion of IUD 13:30:58 CDT CPT-OV Office Visit 13:30:58 CDT CPT-25776 Visit 10:48:09 CDT CPT-42488 Visit 15:34:57 CDT CPT-67488 Visit 15:25:55 CDT CPT-09252 Visit 13:58:45 CDT CPT-93294 Sono OB comp > 14 weeks 16:57:22 CDT CPT-LR Lesion Removal 09:33:27 CDT CPT-89251 Visit 12:50:42 CDT CPT-05752 Visit 18:34:25 CDT CPT-000 Give Appropriate Tetanus Booster 09:16:14 CDT CPT-87231 Administration single or combination vaccine inc oral 11 :36:32 CDT CPT-78261 Tdap 11:36:32 CDT CPT-11944 Visit 09:16:14 CDT CPT-72557 Visit 13:35:24 CDT CPT-56337 Sono OB comp > 14 weeks 11:46:07 CDT CPT-50988 Visit 17:08:15 CDT CPT-00025 Sono OB comp <14 weeks 15:47:19 MEDICAL INSURANCE CLAIMS SPECIALIST CPT-02296 Visit 13:28:37 CDT CPT-67069 Spec Collection and Handling Fee 12:41:37 CDT CPT-09650 Visit 12:41:07 CDT CPT-51732 Visit 18:48:53 CDT CPT-04158 Visit 16:25:17 CDT CPT-18007 Sono OB comp > 14 weeks 11:38:18 CDT CPT-76252 Visit 13:36:17 CDT CPT-65416 Visit 13:48:22 CDT
--- OUTSIDE RECORDS SUMMARY | 2019-01-13 20:57 | XMS REPORT | Clinical Summary ---
Author Author Admin, MARCO ANTONIO [facility] Address Unknown Phone Allergies, Adverse Reactions, Alerts Allergy Name Reaction Description Start Date Severity Status Provider No Known Allergies Cecelia Russell [facility] Conditions or Problems Problem Name Problem Code [...] pill daily, for depression/anxiety 02/09 CITALOPRAM HYDROBROMIDE 28007585649 Active Jacque Blas MD PhD Active HYDROCODONE-ACETAMINOPHEN 7.5-325 MG TABS 1 four times a day as needed for pain HYDROCODONE-ACETAMINOPHEN 70511350468 Active Jacque Blas MD PhD Active HYDROCODONE-ACETAMINOPHEN 5-325 MG TABS 1 pill three times daily as needed for pain HYDROCODONE-ACETAMINOPHEN 94390592815 No Longer Active Jacque Blas MD PhD Active ROBAXIN 500 MG TAB 1-2 pills up to four times daily if needed for muscle spasms METHOCARBAMOL 22130482916 Active Jacque Blas MD PhD Active IBUPROFEN 600 MG TAB 1 pill four times daily, with food IBUPROFEN 44905123050 Active Jacque Blas MD PhD Active TRAMADOL HCL 50 MG TABS 1-2 tablets every 6 hours as needed for pain TRAMADOL HCL 43691546903 No Longer Active Jacque Blsa MD PhD Active TYLENOL EXTRA STRENGTH 500 MG TABS 2 @ HS ACETAMINOPHEN 15441286878 No Longer Active Jacque Blas MD PhD Active SERTRALINE HCL 50 MG TABS 1 daily for depression SERTRALINE HCL 13269676483 No Longer Active Jacque Blas MD PhD Active BACTRIM DS 800-160 MG TAB 1 tab by mouth twice daily TRIMETHOPRIM-SULFAMETHOXAZOLE 38206405089 No Longer Active Eva Alejo APRN Active FLINSTONES GUMMIES OMEGA-3 DHA CHEW Take one by mouth daily PEDIATRIC MULTIPLE VIT-C-FA 74459111290 No Longer Active Jacque Blas MD PhD Active RANITIDINE HCL 150 MG CAPS 1 twice a day RANITIDINE HCL 62851802230 No Longer Active Jacque Blas MD PhD Active PNV-OMEGA 28-0.6-0.4-340 MG CAPS 1 pill by mouth daily PRENAT W/O [id number]-FA-OMEGA 35495864774 No Longer Active Jacque Blas MD PhD Active BACTRIM DS 800-160 MG TAB 1 tab by mouth twice daily TRIMETHOPRIM-SULFAMETHOXAZOLE 22798101815 No Longer Active Jacque Blas MD PhD Active METRONIDAZOLE 250 MG TABS 1 TID METRONIDAZOLE 73965475685 No Longer Active Jacque Blas MD PhD Active TRI-SPRINTEC 0.18/0.215/0.25 MG-35 MCG TABS 1 PO q Day NORGESTIM-ETH ESTRAD TRIPHASIC 59830076213 No Longer Active Jacque Blas MD PhD Active ALPRAZOLAM 0.25 MG TABS 1/2 tab to 1 tab PO TID PRN ALPRAZOLAM 63412776271 No Longer Active Jacque Blas MD PhD Active FLUOXETINE HCL 10 MG CAPS 2 PO q AM FLUOXETINE HCL 68403011148 No Longer Active Jacque Blas MD PhD Active ALPRAZOLAM 0.25 MG TABS 1/2 tab to 1 tab PO TID PRN ALPRAZOLAM 0.25 MG TABS 804771 ALPRAZOLAM Inactive TRI-SPRINTEC 0.18/0.215/0.25 MG-35 MCG TABS 1 PO q Day TRI-SPRINTEC 0.18/0.215/0.25 MG-35 MCG TABS 558989 NORGESTIM-ETH ESTRAD TRIPHASIC Inactive PNV-OMEGA 28-0.6-0.4-340 MG CAPS 1 pill by mouth daily PNV-OMEGA 28-0.6-0.4-340 MG CAPS PRENAT W/O [id number]-FA-OMEGA Inactive RANITIDINE HCL 150 MG CAPS 1 twice a day RANITIDINE HCL 150 MG CAPS 099521 RANITIDINE HCL Inactive FLINSTONES GUMMIES OMEGA-3 DHA CHEW Take one by mouth daily FLINSTONES GUMMIES OMEGA-3 DHA CHEW PEDIATRIC MULTIPLE VIT-C-FA Inactive SERTRALINE HCL 50 MG TABS 1 daily for depression SERTRALINE HCL 50 MG TABS 317203 SERTRALINE HCL Inactive TYLENOL EXTRA STRENGTH 500 MG TABS 2 @ HS TYLENOL EXTRA STRENGTH 500 MG TABS 855304 ACETAMINOPHEN Inactive TRAMADOL HCL 50 MG TABS 1-2 tablets every 6 hours as needed for pain TRAMADOL HCL 50 MG TABS 104938 TRAMADOL HCL Inactive HYDROCODONE-ACETAMINOPHEN 5-325 MG TABS 1 pill three times daily as needed for pain HYDROCODONE-ACETAMINOPHEN 5-325 MG TABS 012612 HYDROCODONE-ACETAMINOPHEN Inactive FLUOXETINE HCL 10 MG CAPS 2 PO q AM FLUOXETINE HCL 10 MG CAPS 392300 FLUOXETINE HCL Inactive METRONIDAZOLE 250 MG TABS 1 TID METRONIDAZOLE 250 MG TABS 935492 METRONIDAZOLE Inactive BACTRIM DS 800-160 MG TAB 1 tab by mouth twice daily BACTRIM DS 800-160 MG TAB TRIMETHOPRIM-SULFAMETHOXAZOLE Inactive BACTRIM DS 800-160 MG TAB 1 tab by mouth twice daily BACTRIM DS 800-160 MG TAB TRIMETHOPRIM-SULFAMETHOXAZOLE Inactive Advance Directives Directive Description Start Date PERMISSION TO SHARE Immunizations Vaccine Administration Date Value Standard Description Adacel (Tetanus, reduced Diphtheria, and acellular Pertussis Immunization) Adacel [[id number]] tetanus toxoid, reduced diphtheria toxoid, and acellular [...] E&M - 3141-9 245.38 [lb_av] Weight Measured blood pressure, diastolic - 8462-4 73 mm[Hg] BP sellers blood pressure, systolic - 8480-6 117 mm[Hg] BP sys height E&M - 8302-2 65 [in_us] Bdy height pulse rate E&M - 8867-4 93 /min Heart rate temperature E&M 98.1 [degF] Body temperature weight E&M - 3141-9 239 [lb_av] Weight Measured blood pressure, diastolic - 8462-4 73 mm[Hg] BP sellers blood pressure, systolic - 8480-6 113 mm[Hg] BP sys height E&M - 8302-2 65 [in_us] Bdy height pulse rate E&M - 8867-4 89 /min Heart rate temperature E&M 98.0 [degF] Body temperature weight E&M - 3141-9 231.8 [lb_av] Weight Measured blood pressure, diastolic - 8462-4 74 mm[Hg] BP sellers blood pressure, systolic - 8480-6 113 mm[Hg] BP sys pulse rate E&M - 8867-4 97 /min Heart rate temperature E&M 98.2 [degF] Body temperature weight E&M - 3141-9 220 [lb_av] Weight Measured Diagnostic Results Date Name Value Unit Range Description Lab Report: ANTIBODY SCREEN, RBCW/REFL I - Blood bank antibody screen, serum NO ANTIBODIES DETECTED Lab Report: Chlamydia/GC APTIMA/[id number] - Lab chlamydia DNA probe NOT DETECTED NOT DETECTED Lab Report: Chlamydia/GC APTIMA/60040 - Microbiology Neisseria gonorrhoeae DNA probe NOT DETECTED NOT DETECTED Lab Report: Chlamydia/GC DNA, SDA - Lab chlamydia DNA probe NOT DETECTED NOT DETECTED chlamydia DNA probe NOT DETECTED NOT DETECTED Lab Report: Chlamydia/GC DNA, SDA - Microbiology Neisseria gonorrhoeae DNA probe NOT DETECTED NOT DETECTED Neisseria gonorrhoeae DNA probe NOT DETECTED NOT DETECTED Office Visit: OB Visit 24 week - Chemistry protein, total urine random N mg/dL Office Visit: OB Visit 24 week - Urinalysis glucose, urine, semiquantitative N nitrite, urine, semiquantitative N urine color yellow urinalysis, routine Clean Catch culture status No Office Visit: OB Visit 26 week - [...] negative Encounters Code Encounter Date Provider Facility CPT-82434 Level 3 Est. Patient 15:41:32 CDT Jacque Blas MD [facility] CPT-23391 Level 3 Est. Patient 18:02:00 BILL PEDDLER Jacque Blas MD [facility] CPT-24880 Level 3 Est. Patient 21:41:26 BILL PEDDLER Jacque Blas MD [facility] CPT-02792 Level 4 Est. Patient 14:43:47 BILL PEDDLER Jacque Blas MD [facility] CPT-23878 Level 3 Est. Patient 20:16:54 BILL PEDDLER Jacque Blas MD [facility] CPT-36810 Level 3 Est. Patient 13:31:37 CDT Jacque Blas MD [facility] CPT-88089 Level 3 New Patient 18:16:07 CDT Jacque Blas MD [facility] Procedures Code Procedure Name Date Entry Date Standard Description CPT-24189 LS spine comp w obliq 15:53:02 BILL PEDDLER CPT-46904 C-Spine Min 4V 15:53:02 BILL PEDDLER CPT-68145 UHCG (floor use only) 14:15:45 CDT CPT-82537 UHCG (floor use only) 14:09:15 CDT CPT-J7302 Mirena IUD 13:30:58 CDT CPT-52662 Insertion of IUD 13:30:58 CDT CPT-OV Office Visit 13:30:58 CDT CPT-71564 Visit 10:48:09 CDT CPT-56609 Visit 15:34:57 CDT CPT-93703 Visit 15:25:55 CDT CPT-75603 Visit 13:58:45 CDT CPT-15052 Sono OB comp > 14 weeks 16:57:22 CDT CPT-LR Lesion Removal 09:33:27 CDT CPT-06133 Visit 12:50:42 CDT CPT-60220 Visit 18:34:25 CDT CPT-000 Give Appropriate Tetanus Booster 09:16:14 CDT CPT-70934 Administration single or combination vaccine inc oral 11 :36:32 CDT CPT-04332 Tdap 11:36:32 CDT CPT-70353 Visit 09:16:14 CDT CPT-02696 Visit 13:35:24 CDT CPT-69964 Sono OB comp > 14 weeks 11:46:07 CDT CPT-18526 Visit 17:08:15 CDT CPT-61421 Sono OB comp <14 weeks 15:47:19 BILL PEDDLER CPT-71998 Visit 13:28:37 CDT CPT-85083 Spec Collection and Handling Fee 12:41:37 CDT CPT-62465 Visit 12:41:07 CDT CPT-62163 Visit 18:48:53 CDT CPT-91067 Visit 16:25:17 CDT CPT-67651 Sono OB comp > 14 weeks 11:38:18 CDT CPT-51182 Visit 13:36:17 CDT CPT-55148 Visit 13:48:22 CDT
--- OUTSIDE RECORDS SUMMARY | 2019-01-13 20:57 | XMS REPORT | Clinical Summary ---
Author Author Admin, MARCO ANTONIO Gardiner [facility] Address Unknown Phone Unavailable Allergies, Adverse [...] viral diseases UTI 599.0 Active Eva Alejo VARNISH BLENDER Urinary tract infection, site not specified Back pain, lumbar 724.2 Active Eva Alejo VARNISH BLENDER Lumbago , NORMAL ICD-V22.2 Inactive Jacque Blas [...] by mouth q hs, prn CYCLOBENZAPRINE HCL 21729991968 Active Eva Alejo APRN Active MEDROL (DIAN) 4 MG TABS 6 pills x 1 day, then 5 pills x 1 day then 4 pills x 1 day, then 3 pills x 1 day, then 2 pills x 1 day, then 1 pill x 1 day, then stop [facility] [id number] No Longer Active Eva Alejo APRN Active SEROQUEL 200 MG ORAL TABS take 1 tab daily QUETIAPINE FUMARATE 73700551101 Active Eva Alejo APRN Active CIPRO 500 MG TAB 1 tablet by mouth twice daily CIPROFLOXACIN HCL 99321888575 Active Rajllina Sukumarl VARNISH BLENDER Active CYCLOBENZAPRINE HCL 10 MG TABS 1/2 - 1 tab by mouth three times daily if needed for spasms/pain CYCLOBENZAPRINE HCL 56970735831 No Longer Active Eva Alejo APRN Active NICODERM CQ 7 MG/24HR PT24 1 patch daily x 2 weeks - for smoking cessation NICOTINE 04533345156 Active Jacque Blas MD PhD Active NICODERM CQ 14 MG/24HR PT24 1 patch daily x 2 weeks, then decrease to 7's - for smoking cessation NICOTINE 27000239090 Active Jacque Blas MD PhD Active FLAGYL 500 MG ORAL TABS four tabs PO x 1 METRONIDAZOLE 16423438806 No Longer Active Jacque Blas MD PhD Active BACTRIM DS 800-160 MG ORAL TABS one tab PO BID x 3 days SULFAMETHOXAZOLE-TRIMETHOPRIM 33296594092 No Longer Active Chloe Wagner MD Active METHOCARBAMOL 500 MG ORAL TABS 1 pill by mouth up to four times daily if needed for muscle spasm/pain METHOCARBAMOL 23382756262 Active Jacque Blas MD PhD Active LAMICTAL 25 MG TABS 1 pill by mouth daily x 2 weeks, then 2 pills daily 07/26 LAMOTRIGINE 96408304462 No Longer Active Jacque Blas MD PhD Active LATUDA 40 MG TABS Take one by mouth daily LURASIDONE HCL 63445281218 Active Jacque Blas MD PhD Active HYDROCODONE-ACETAMINOPHEN 7.5-325 MG TABS 1 four times a day as needed for pain HYDROCODONE-ACETAMINOPHEN 73700868308 No Longer Active Jacque Blas MD PhD Active ROBAXIN 500 MG TAB 1-2 pills up to four times daily if needed for muscle spasms METHOCARBAMOL 09042714833 No Longer Active Jacque Blas MD PhD Active CITALOPRAM HYDROBROMIDE 10 MG TABS 1 pill daily, for depression/anxiety 02/09 CITALOPRAM HYDROBROMIDE 21265587867 No Longer Active Jacque Blas MD PhD Active HYDROCODONE-ACETAMINOPHEN 5-325 MG TABS 1 pill three times daily as needed for pain HYDROCODONE-ACETAMINOPHEN 55536153216 No Longer Active Jacque Blas MD PhD Active IBUPROFEN 600 MG TAB 1 pill four times daily, with food IBUPROFEN 67042281491 Active Jacque Blas MD PhD Active TRAMADOL HCL 50 MG TABS 1-2 tablets every 6 hours as needed for pain TRAMADOL HCL 43398002174 No Longer Active Jacque Blas MD PhD Active TYLENOL EXTRA STRENGTH 500 MG TABS 2 @ HS ACETAMINOPHEN 69093867298 No Longer Active Jacque Blas MD PhD Active SERTRALINE HCL 50 MG TABS 1 daily for depression SERTRALINE HCL 69483003223 No Longer Active Jacque Blas MD PhD Active BACTRIM DS 800-160 MG TAB 1 tab by mouth twice daily TRIMETHOPRIM-SULFAMETHOXAZOLE 58259840329 No Longer Active Eva Alejo APRN Active FLINSTON GUMMIES OMEGA-3 DHA CHEW Take one by mouth daily PEDIATRIC MULTIPLE VIT-C-FA 16287389218 No Longer Active Jacque Blas MD PhD Active RANITIDINE HCL 150 MG CAPS 1 twice a day RANITIDINE HCL 24662007330 No Longer Active Jacque Blas MD PhD Active PNV-OMEGA 28-0.6-0.4-340 MG CAPS 1 pill by mouth daily PRENAT W/O [id number]-WK-[id number]-FA-OMEGA 04965892351 No Longer Active Jacque Blas MD PhD Active BACTRIM DS 800-160 MG TAB 1 tab by mouth twice daily TRIMETHOPRIM-SULFAMETHOXAZOLE 99992030667 No Longer Active Jacque Blas MD PhD Active METRONIDAZOLE 250 MG TABS 1 TID METRONIDAZOLE 13202642673 No Longer Active Jacque Blas MD PhD Active TRI-SPRINTEC 0.18/0.215/0.25 MG-35 MCG TABS 1 PO q Day NORGESTIM-ETH ESTRAD TRIPHASIC 26587379480 No Longer Active Jacque Blas MD PhD Active ALPRAZOLAM 0.25 MG TABS 1/2 tab to 1 tab PO TID PRN ALPRAZOLAM 69144766057 No Longer Active Jacque Blas MD PhD Active FLUOXETINE HCL 10 MG CAPS 2 PO q AM FLUOXETINE HCL 75182627283 No Longer Active Jacque Blas MD PhD Active ALPRAZOLAM 0.25 MG TABS 1/2 tab to 1 tab PO TID PRN ALPRAZOLAM 0.25 MG TABS 968512 ALPRAZOLAM Inactive TRI-SPRINTEC 0.18/0.215/0.25 MG-35 MCG TABS 1 PO q Day TRI-SPRINTEC 0.18/0.215/0.25 MG-35 MCG TABS 322936 NORGESTIM-ETH ESTRAD TRIPHASIC Inactive PNV-OMEGA 28-0.6-0.4-340 MG CAPS 1 pill by mouth daily PNV-OMEGA 28-0.6-0.4-340 MG CAPS PRENAT W/O [id number]-FA-OMEGA Inactive RANITIDINE HCL 150 MG CAPS 1 twice a day RANITIDINE HCL 150 MG CAPS 127180 RANITIDINE HCL Inactive FLINSTONES GUMMIES OMEGA-3 DHA CHEW Take one by mouth daily FLINSTONES GUMMIES OMEGA-3 DHA CHEW PEDIATRIC MULTIPLE VIT-C-FA Inactive SERTRALINE HCL 50 MG TABS 1 daily for depression SERTRALINE HCL 50 MG TABS 356516 SERTRALINE HCL Inactive TYLENOL EXTRA STRENGTH 500 MG TABS 2 @ HS TYLENOL EXTRA STRENGTH 500 MG TABS 917534 ACETAMINOPHEN Inactive TRAMADOL HCL 50 MG TABS 1-2 tablets every 6 hours as needed for pain TRAMADOL HCL 50 MG TABS 053765 TRAMADOL HCL Inactive HYDROCODONE-ACETAMINOPHEN 5-325 MG TABS 1 pill three times daily as needed for pain HYDROCODONE-ACETAMINOPHEN 5-325 MG TABS 215113 HYDROCODONE-ACETAMINOPHEN Inactive CITALOPRAM HYDROBROMIDE 10 MG TABS 1 pill daily, for depression/anxiety 02/09 CITALOPRAM HYDROBROMIDE 10 MG TABS 429451 CITALOPRAM HYDROBROMIDE Inactive ROBAXIN 500 MG TAB 1-2 pills up to four times daily if needed for muscle spasms ROBAXIN 500 MG TAB 933643 METHOCARBAMOL Inactive HYDROCODONE-ACETAMINOPHEN 7.5-325 MG TABS 1 four times a day as needed for pain HYDROCODONE-ACETAMINOPHEN 7.5-325 MG TABS 087191 HYDROCODONE-ACETAMINOPHEN Inactive LAMICTAL 25 MG TABS 1 pill by mouth daily x 2 weeks, then 2 pills daily 07/26 LAMICTAL 25 MG TABS 426912 LAMOTRIGINE Inactive FLAGYL 500 MG ORAL TABS four tabs PO x 1 FLAGYL 500 MG ORAL TABS 456531 METRONIDAZOLE Inactive CYCLOBENZAPRINE HCL 10 MG TABS 1/2 - 1 tab by mouth three times daily if needed for spasms/pain CYCLOBENZAPRINE HCL 10 MG TABS 608714 CYCLOBENZAPRINE HCL Inactive FLUOXETINE HCL 10 MG CAPS 2 PO q AM FLUOXETINE HCL 10 MG CAPS 439098 FLUOXETINE HCL Inactive METRONIDAZOLE 250 MG TABS 1 TID METRONIDAZOLE 250 MG TABS 360443 METRONIDAZOLE Inactive BACTRIM DS 800-160 MG TAB [...] reduced Diphtheria, and acellular Pertussis Immunization) Adacel [[id number]] tetanus toxoid, reduced diphtheria toxoid, and acellular [...] Value Unit Range Description Lab Report: Chlamydia/GC APTIMA/23910 - Lab chlamydia DNA probe NOT DETECTED NOT DETECTED chlamydia DNA probe NOT DETECTED NOT DETECTED chlamydia DNA probe NOT DETECTED NOT DETECTED chlamydia DNA probe NOT DETECTED NOT DETECTED Lab Report: Chlamydia/GC APTIMA/54164 - Microbiology Neisseria gonorrhoeae DNA probe NOT DETECTED NOT DETECTED Neisseria gonorrhoeae DNA probe NOT DETECTED NOT DETECTED Neisseria gonorrhoeae DNA probe NOT DETECTED NOT DETECTED Neisseria gonorrhoeae DNA probe NOT DETECTED NOT DETECTED Lab Report: Chlamydia/GC APTIMA/90067, Drug Abuse Pnl 10-50/40014 - Lab chlamydia DNA probe NOT DETECTED NOT DETECTED Lab Report: Chlamydia/GC APTIMA/15215, Drug Abuse Pnl 10-50/21919 - Microbiology Neisseria gonorrhoeae DNA probe NOT [...] Negative Encounters Code Encounter Date Provider Facility CPT-64876 Level 3 Est. Patient 20:19:50 DRUM STRAIGHTENER Jacque Blas MD PhD [facility] CPT-81689 Level 4 Est. Patient 17:32:49 DRUM STRAIGHTENER Jacque Blas MD PhD [facility] CPT-74258 Level 3 Est. Patient 14:38:20 CDT Jacque Blas MD PhD [facility] CPT-51276 Level 4 Est. Patient 20:19:14 CDT Jacque Blas MD [facility] CPT-48780 Level 3 Est. Patient 15:41:32 CDT Jacque Blas MD [facility] CPT-83004 Level 3 Est. Patient 18:02:00 DRUM STRAIGHTENER Jacque Blas MD [facility] CPT-17887 Level 3 Est. Patient 21:41:26 DRUM STRAIGHTENER Jacque Blas MD [facility] CPT-94943 Level 4 Est. Patient 14:43:47 DRUM STRAIGHTENER Jacque Blas MD [facility] CPT-56179 Level 3 Est. Patient 20:16:54 DRUM STRAIGHTENER Jacque Blas MD [facility] CPT-25759 Level 3 Est. Patient 13:31:37 CDT Jacque Blas MD [facility] CPT-65827 Level 3 New Patient 18:16:07 CDT Jacque Blas MD [facility] Procedures Code Procedure Name Date Entry Date Standard Description CPT-54631 Fluzone Quadrivalent Intramuscular Suspension 0.5 ML 16: 31:47 DRUM STRAIGHTENER CPT-11328 Immunization Single Admin 16:31:47 DRUM STRAIGHTENER CPT-47012 Immunization Single Admin 13:26:18 DRUM STRAIGHTENER CPT-02620 Fluzone Intramuscular Injectable 13:26:18 DRUM STRAIGHTENER CPT-58374 Fluzone Thim Free 36mo and older 12:03:33 DRUM STRAIGHTENER CPT-59348 UHCG (floor use only) 11:49:41 DRUM STRAIGHTENER CPT-OV Office Visit 11:49:41 DRUM STRAIGHTENER CPT-28430 LS spine comp w obliq 15:53:02 DRUM STRAIGHTENER CPT-51393 C-Spine Min 4V 15:53:02 DRUM STRAIGHTENER CPT-09454 UHCG (floor use only) 14:15:45 CDT CPT-65604 UHCG (floor use only) 14:09:15 CDT CPT-J7302 Mirena IUD 13:30:58 CDT CPT-49841 Insertion of IUD 13:30:58 CDT CPT-OV Office Visit 13:30:58 CDT CPT-00425 Visit 10:48:09 CDT CPT-53305 Visit 15:34:57 CDT CPT-81179 Visit 15:25:55 CDT CPT-21962 Visit 13:58:45 CDT CPT-45848 Sono OB comp > 14 weeks 16:57:22 CDT CPT-LR Lesion Removal 09:33:27 CDT CPT-98241 Visit 12:50:42 CDT CPT-55720 Visit 18:34:25 CDT CPT-000 Give Appropriate Tetanus Booster 09:16:14 CDT CPT-33376 Administration single or combination vaccine inc oral 11 :36:32 CDT CPT-26076 Tdap 11:36:32 CDT CPT-64913 Visit 09:16:14 CDT CPT-50221 Visit 13:35:24 CDT CPT-80847 Sono OB comp > 14 weeks 11:46:07 CDT CPT-76666 Visit 17:08:15 CDT CPT-16572 Sono OB comp <14 weeks 15:47:19 DRUM STRAIGHTENER CPT-18792 Visit 13:28:37 CDT CPT-97880 Spec Collection and Handling Fee 12:41:37 CDT CPT-08861 Visit 12:41:07 CDT CPT-45235 Visit 18:48:53 CDT CPT-24033 Visit 16:25:17 CDT CPT-64419 Sono OB comp > 14 weeks 11:38:18 CDT CPT-76340 Visit 13:36:17 CDT CPT-29426 Visit 13:48:22 CDT
--- OUTSIDE RECORDS SUMMARY | 2019-01-13 20:58 | XMS REPORT | Clinical Summary ---
Author Author Admin, MARCO ANTONIO Gardiner [facility] Address Unknown Phone Allergies, Adverse Reactions, Alerts Allergy Name Reaction Description Start Date Severity Status Provider No Known Allergies Cecelia Russell [facility] Conditions or Problems Problem Name Problem Code [...] pill daily, for depression/anxiety 02/09 CITALOPRAM HYDROBROMIDE 06895241640 Active Jacque Blas MD PhD Active HYDROCODONE-ACETAMINOPHEN 7.5-325 MG TABS 1 four times a day as needed for pain HYDROCODONE-ACETAMINOPHEN 82435471112 Active Jacque Blas MD PhD Active HYDROCODONE-ACETAMINOPHEN 5-325 MG TABS 1 pill three times daily as needed for pain HYDROCODONE-ACETAMINOPHEN 64952749315 No Longer Active Jacque Blas MD PhD Active ROBAXIN 500 MG TAB 1-2 pills up to four times daily if needed for muscle spasms METHOCARBAMOL 76725214322 Active Jacque Blas MD PhD Active IBUPROFEN 600 MG TAB 1 pill four times daily, with food IBUPROFEN 31610241443 Active Jacque Blas MD PhD Active TRAMADOL HCL 50 MG TABS 1-2 tablets every 6 hours as needed for pain TRAMADOL HCL 66624939429 No Longer Active Jacque Blas MD PhD Active TYLENOL EXTRA STRENGTH 500 MG TABS 2 @ HS ACETAMINOPHEN 54372356486 No Longer Active Jacque Blas MD PhD Active SERTRALINE HCL 50 MG TABS 1 daily for depression SERTRALINE HCL 60997297515 No Longer Active Jacque Blas MD PhD Active BACTRIM DS 800-160 MG TAB 1 tab by mouth twice daily TRIMETHOPRIM-SULFAMETHOXAZOLE 85726481007 No Longer Active Eva Alejo APRN Active FLINSTONES GUMMIES OMEGA-3 DHA CHEW Take one by mouth daily PEDIATRIC MULTIPLE VIT-C-FA 24665965329 No Longer Active Jacque Blas MD PhD Active RANITIDINE HCL 150 MG CAPS 1 twice a day RANITIDINE HCL 59588829935 No Longer Active Jacque Blas MD PhD Active PNV-OMEGA 28-0.6-0.4-340 MG CAPS 1 pill by mouth daily PRENAT W/O [id number]-OMEGA 29026723426 No Longer Active Jacque Blas MD PhD Active BACTRIM DS 800-160 MG TAB 1 tab by mouth twice daily TRIMETHOPRIM-SULFAMETHOXAZOLE 04316555493 No Longer Active Jacque Blas MD PhD Active METRONIDAZOLE 250 MG TABS 1 TID METRONIDAZOLE 08962120994 No Longer Active Jacque Blas MD PhD Active TRI-SPRINTEC 0.18/0.215/0.25 MG-35 MCG TABS 1 PO q Day NORGESTIM-ETH ESTRAD TRIPHASIC 90080508140 No Longer Active Jacque Blas MD PhD Active ALPRAZOLAM 0.25 MG TABS 1/2 tab to 1 tab PO TID PRN ALPRAZOLAM 15219696883 No Longer Active Jacque Blas MD PhD Active FLUOXETINE HCL 10 MG CAPS 2 PO q AM FLUOXETINE HCL 35725810154 No Longer Active Jacque Blas MD PhD Active ALPRAZOLAM 0.25 MG TABS 1/2 tab to 1 tab PO TID PRN ALPRAZOLAM 0.25 MG TABS 239049 ALPRAZOLAM Inactive TRI-SPRINTEC 0.18/0.215/0.25 MG-35 MCG TABS 1 PO q Day TRI-SPRINTEC 0.18/0.215/0.25 MG-35 MCG TABS 948046 NORGESTIM-ETH ESTRAD TRIPHASIC Inactive PNV-OMEGA 28-0.6-0.4-340 MG CAPS 1 pill by mouth daily PNV-OMEGA 28-0.6-0.4-340 MG CAPS PRENAT W/O [id number]-OMEGA Inactive RANITIDINE HCL 150 MG CAPS 1 twice a day RANITIDINE HCL 150 MG CAPS 045621 RANITIDINE HCL Inactive FLINSTONES GUMMIES OMEGA-3 DHA CHEW Take one by mouth daily FLINSTONES GUMMIES OMEGA-3 DHA CHEW PEDIATRIC MULTIPLE VIT-C-FA Inactive SERTRALINE HCL 50 MG TABS 1 daily for depression SERTRALINE HCL 50 MG TABS 225607 SERTRALINE HCL Inactive TYLENOL EXTRA STRENGTH 500 MG TABS 2 @ HS TYLENOL EXTRA STRENGTH 500 MG TABS 497124 ACETAMINOPHEN Inactive TRAMADOL HCL 50 MG TABS 1-2 tablets every 6 hours as needed for pain TRAMADOL HCL 50 MG TABS 547534 TRAMADOL HCL Inactive HYDROCODONE-ACETAMINOPHEN 5-325 MG TABS 1 pill three times daily as needed for pain HYDROCODONE-ACETAMINOPHEN 5-325 MG TABS 604028 HYDROCODONE-ACETAMINOPHEN Inactive FLUOXETINE HCL 10 MG CAPS 2 PO q AM FLUOXETINE HCL 10 MG CAPS 500864 FLUOXETINE HCL Inactive METRONIDAZOLE 250 MG TABS 1 TID METRONIDAZOLE 250 MG TABS 039632 METRONIDAZOLE Inactive BACTRIM DS 800-160 MG TAB 1 tab by mouth twice daily BACTRIM DS 800-160 MG TAB TRIMETHOPRIM-SULFAMETHOXAZOLE Inactive BACTRIM DS 800-160 MG TAB 1 tab by mouth twice daily BACTRIM DS 800-160 MG TAB TRIMETHOPRIM-SULFAMETHOXAZOLE Inactive Advance Directives Directive Description Start Date PERMISSION TO SHARE Immunizations Vaccine Administration Date Value Standard Description Adacel immunization Adacel [[id number]] tetanus toxoid, reduced diphtheria toxoid, and acellular [...] serum NO ANTIBODIES DETECTED Lab Report: Chlamydia/GC APTIMA/71131 - Lab chlamydia DNA probe NOT DETECTED NOT DETECTED Lab Report: Chlamydia/GC APTIMA/99999 - Microbiology Neisseria gonorrhoeae DNA probe NOT [...] negative Encounters Code Encounter Date Provider Facility CPT-95641 Level 3 Est. Patient 15:41:32 CDT Jacque Blas MD [facility] CPT-31839 Level 3 Est. Patient 18:02:00 DIRECTOR REVENUE Jacque Blas MD [facility] CPT-05559 Level 3 Est. Patient 21:41:26 DIRECTOR REVENUE Jacque Blas MD [facility] CPT-88731 Level 4 Est. Patient 14:43:47 DIRECTOR REVENUE Jacque Blas MD [facility] CPT-00121 Level 3 Est. Patient 20:16:54 DIRECTOR REVENUE Jacque Blas MD [facility] CPT-33234 Level 3 Est. Patient 13:31:37 CDT Jacque Blas MD [facility] CPT-00471 Level 3 New Patient 18:16:07 CDT Jacque Blas MD [facility] Procedures Code Procedure Name Date Entry Date Standard Description CPT-77094 LS spine comp w obliq 15:53:02 DIRECTOR REVENUE CPT-25817 C-Spine Min 4V 15:53:02 DIRECTOR REVENUE CPT-10770 UHCG (floor use only) 14:15:45 CDT CPT-84525 UHCG (floor use only) 14:09:15 CDT CPT-J7302 Mirena IUD 13:30:58 CDT CPT-81061 Insertion of IUD 13:30:58 CDT CPT-OV Office Visit 13:30:58 CDT CPT-12832 Visit 10:48:09 CDT CPT-47820 Visit 15:34:57 CDT CPT-76735 Visit 15:25:55 CDT CPT-45297 Visit 13:58:45 CDT CPT-20425 Sono OB comp > 14 weeks 16:57:22 CDT CPT-LR Lesion Removal 09:33:27 CDT CPT-60305 Visit 12:50:42 CDT CPT-70367 Visit 18:34:25 CDT CPT-000 Give Appropriate Tetanus Booster 09:16:14 CDT CPT-98352 Administration single or combination vaccine inc oral 11 :36:32 CDT CPT-17494 Tdap 11:36:32 CDT CPT-97348 Visit 09:16:14 CDT CPT-75495 Visit 13:35:24 CDT CPT-57782 Sono OB comp > 14 weeks 11:46:07 CDT CPT-18751 Visit 17:08:15 CDT CPT-74593 Sono OB comp <14 weeks 15:47:19 DIRECTOR REVENUE CPT-22934 Visit 13:28:37 CDT CPT-25082 Spec Collection and Handling Fee 12:41:37 CDT CPT-41992 Visit 12:41:07 CDT CPT-87701 Visit 18:48:53 CDT CPT-79055 Visit 16:25:17 CDT CPT-02926 Sono OB comp > 14 weeks 11:38:18 CDT CPT-18079 Visit 13:36:17 CDT CPT-80636 Visit 13:48:22 CDT
--- OUTSIDE RECORDS SUMMARY | 2019-01-13 20:59 | XMS REPORT | Clinical Summary ---
Author Author Admin, MARCO ANTONIO Gardiner [facility] Address Unknown Phone Unavailable Allergies, Adverse [...] weeks, then 2 pills daily 07/26 LAMOTRIGINE 99442711021 Active Jacque Blas MD PhD Active ROBAXIN 500 MG TAB 1-2 pills up to four times daily if needed for muscle spasms METHOCARBAMOL 40012222624 No Longer Active Jacque Blas MD PhD Active CITALOPRAM HYDROBROMIDE 10 MG TABS 1 pill daily, for depression/anxiety 02/09 CITALOPRAM HYDROBROMIDE 64859683468 No Longer Active Jacque Blas MD PhD Active HYDROCODONE-ACETAMINOPHEN 7.5-325 MG TABS 1 four times a day as needed for pain HYDROCODONE-ACETAMINOPHEN 82326063963 Active Jacque Blas MD PhD Active HYDROCODONE-ACETAMINOPHEN 5-325 MG TABS 1 pill three times daily as needed for pain HYDROCODONE-ACETAMINOPHEN 80440573247 No Longer Active Jacque Blas MD PhD Active IBUPROFEN 600 MG TAB 1 pill four times daily, with food IBUPROFEN 54516032881 Active Jacque Blas MD PhD Active TRAMADOL HCL 50 MG TABS 1-2 tablets every 6 hours as needed for pain TRAMADOL HCL 39837944021 No Longer Active Jacque Blas MD PhD Active TYLENOL EXTRA STRENGTH 500 MG TABS 2 @ HS ACETAMINOPHEN 95468890570 No Longer Active Jacque Blas MD PhD Active SERTRALINE HCL 50 MG TABS 1 daily for depression SERTRALINE HCL 23894053562 No Longer Active Jacque Blas MD PhD Active BACTRIM DS 800-160 MG TAB 1 tab by mouth twice daily TRIMETHOPRIM-SULFAMETHOXAZOLE 48904439605 No Longer Active Eva Alejo APRN Active FLINSTONES GUMMIES OMEGA-3 DHA CHEW Take one by mouth daily PEDIATRIC MULTIPLE VIT-C-FA 28497226417 No Longer Active Jacque Blas MD PhD Active RANITIDINE HCL 150 MG CAPS 1 twice a day RANITIDINE HCL 21039501783 No Longer Active Jacque Blas MD PhD Active PNV-OMEGA 28-0.6-0.4-340 MG CAPS 1 pill by mouth daily PRENAT W/O H-VQ-VUQCM-FA-OMEGA 48736161647 No Longer Active Jacque Blas MD PhD Active BACTRIM DS 800-160 MG TAB 1 tab by mouth twice daily TRIMETHOPRIM-SULFAMETHOXAZOLE 38685699523 No Longer Active Jacque Blas MD PhD Active METRONIDAZOLE 250 MG TABS 1 TID METRONIDAZOLE 64270338959 No Longer Active Jacque Blas MD PhD Active TRI-SPRINTEC 0.18/0.215/0.25 MG-35 MCG TABS 1 PO q Day NORGESTIM-ETH ESTRAD TRIPHASIC 43824423643 No Longer Active Jacque Blas MD PhD Active ALPRAZOLAM 0.25 MG TABS 1/2 tab to 1 tab PO TID PRN ALPRAZOLAM 77727070143 No Longer Active Jacque Blas MD PhD Active FLUOXETINE HCL 10 MG CAPS 2 PO q AM FLUOXETINE HCL 17313830565 No Longer Active Jacque Blas MD PhD Active ALPRAZOLAM 0.25 MG TABS 1/2 tab to 1 tab PO TID PRN ALPRAZOLAM 0.25 MG TABS 770927 ALPRAZOLAM Inactive TRI-SPRINTEC 0.18/0.215/0.25 MG-35 MCG TABS 1 PO q Day TRI-SPRINTEC 0.18/0.215/0.25 MG-35 MCG TABS 957170 NORGESTIM-ETH ESTRAD TRIPHASIC Inactive PNV-OMEGA 28-0.6-0.4-340 MG CAPS 1 pill by mouth daily PNV-OMEGA 28-0.6-0.4-340 MG CAPS PRENAT W/O O-QL-QUQMM-FA-OMEGA Inactive RANITIDINE HCL 150 MG CAPS 1 twice a day RANITIDINE HCL 150 MG CAPS 462160 RANITIDINE HCL Inactive FLINSTONES GUMMIES OMEGA-3 DHA CHEW Take one by mouth daily FLINSTONES GUMMIES OMEGA-3 DHA CHEW PEDIATRIC MULTIPLE VIT-C-FA Inactive SERTRALINE HCL 50 MG TABS 1 daily for depression SERTRALINE HCL 50 MG TABS 175516 SERTRALINE HCL Inactive TYLENOL EXTRA STRENGTH 500 MG TABS 2 @ HS TYLENOL EXTRA STRENGTH 500 MG TABS 639396 ACETAMINOPHEN Inactive TRAMADOL HCL 50 MG TABS 1-2 tablets every 6 hours as needed for pain TRAMADOL HCL 50 MG TABS 529270 TRAMADOL HCL Inactive HYDROCODONE-ACETAMINOPHEN 5-325 MG TABS 1 pill three times daily as needed for pain HYDROCODONE-ACETAMINOPHEN 5-325 MG TABS 998263 HYDROCODONE-ACETAMINOPHEN Inactive CITALOPRAM HYDROBROMIDE 10 MG TABS 1 pill daily, for depression/anxiety 02/09 CITALOPRAM HYDROBROMIDE 10 MG TABS 455814 CITALOPRAM HYDROBROMIDE Inactive ROBAXIN 500 MG TAB 1-2 pills up to four times daily if needed for muscle spasms ROBAXIN 500 MG TAB 422814 METHOCARBAMOL Inactive FLUOXETINE HCL 10 MG CAPS 2 PO q AM FLUOXETINE HCL 10 MG CAPS 981858 FLUOXETINE HCL Inactive METRONIDAZOLE 250 MG TABS 1 TID METRONIDAZOLE 250 MG TABS 736876 METRONIDAZOLE Inactive BACTRIM DS 800-160 MG TAB [...] given Td(adult) unspecified formulation Adacel immunization Adacel [[id number]] tetanus toxoid, reduced diphtheria toxoid, and acellular [...] temperature weight E&M 217 [lb_av] Weight Measured Diagnostic Results Date Name Value Unit Range Description Lab Report: Chlamydia/GC APTIMA/81156 - Lab chlamydia DNA probe NOT DETECTED NOT DETECTED chlamydia DNA probe NOT DETECTED NOT DETECTED Lab Report: Chlamydia/GC APTIMA/53306 - Microbiology Neisseria gonorrhoeae DNA probe NOT [...] negative Encounters Code Encounter Date Provider Facility CPT-45263 Level 3 Est. Patient 14:38:20 CDT Jacque Blas MD [facility] CPT-84091 Level 4 Est. Patient 20:19:14 CDT Jacque Blas MD [facility] CPT-35879 Level 3 Est. Patient 15:41:32 CDT Jacque Blas MD [facility] CPT-20203 Level 3 Est. Patient 18:02:00 SUPERVISOR MIXING Jacque Blas MD [facility] CPT-56197 Level 3 Est. Patient 21:41:26 SUPERVISOR MIXING Jacque Blas MD [facility] CPT-14708 Level 4 Est. Patient 14:43:47 SUPERVISOR MIXING Jacque Blas MD [facility] CPT-99512 Level 3 Est. Patient 20:16:54 SUPERVISOR MIXING Jacque Blas MD [facility] CPT-83837 Level 3 Est. Patient 13:31:37 CDT Jacque Blas MD [facility] CPT-37527 Level 3 New Patient 18:16:07 CDT Jacque Blas MD [facility] Procedures Code Procedure Name Date Entry Date Standard Description CPT-21823 LS spine comp w obliq 15:53:02 SUPERVISOR MIXING CPT-56787 C-Spine Min 4V 15:53:02 SUPERVISOR MIXING CPT-31167 UHCG (floor use only) 14:15:45 CDT CPT-09293 UHCG (floor use only) 14:09:15 CDT CPT-J7302 Mirena IUD 13:30:58 CDT CPT-33182 Insertion of IUD 13:30:58 CDT CPT-OV Office Visit 13:30:58 CDT CPT-55323 Visit 10:48:09 CDT CPT-18316 Visit 15:34:57 CDT CPT-74813 Visit 15:25:55 CDT CPT-63002 Visit 13:58:45 CDT CPT-79460 Sono OB comp > 14 weeks 16:57:22 CDT CPT-LR Lesion Removal 09:33:27 CDT CPT-67902 Visit 12:50:42 CDT CPT-77631 Visit 18:34:25 CDT CPT-000 Give Appropriate Tetanus Booster 09:16:14 CDT CPT-76068 Administration single or combination vaccine inc oral 11 :36:32 CDT CPT-35835 Tdap 11:36:32 CDT CPT-38793 Visit 09:16:14 CDT CPT-06679 Visit 13:35:24 CDT CPT-64778 Son[facility] OB comp > 14 weeks 11:46:07 CDT CPT-55912 Visit 17:08:15 CDT CPT-38065 Son[facility] OB comp <14 weeks 15:47:19 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
--- OUTSIDE RECORDS SUMMARY | 2019-01-13 21:00 | XMS REPORT | Clinical Summary ---
Author Author Admin, MARCO ANTONIO [facility] Address Unknown Phone Unavailable Allergies, Adverse Reactions, [...] tab PO BID x 3 days SULFAMETHOXAZOLE-TRIMETHOPRIM 26243730382 Active Chloe Wagner MD Active FLAGYL 500 MG ORAL TABS four tabs PO x 1 METRONIDAZOLE 31302607001 Active Chloe Wagner MD Active METHOCARBAMOL 500 MG ORAL TABS 1 pill by mouth up to four times daily if needed for muscle spasm/pain METHOCARBAMOL 42507361912 Active Jacque Blas MD PhD Active CYCLOBENZAPRINE HCL 10 MG TABS 1/2 - 1 tab by mouth three times daily if needed for spasms/pain CYCLOBENZAPRINE HCL 84802839459 Active Jacque Blas MD PhD Active LAMICTAL 25 MG TABS 1 pill by mouth daily x 2 weeks, then 2 pills daily 07/26 LAMOTRIGINE 26251127216 No Longer Active Jacque Blas MD PhD Active LATUDA 40 MG TABS Take one by mouth daily LURASIDONE HCL 35496696114 Active Jacque Blas MD PhD Active HYDROCODONE-ACETAMINOPHEN 7.5-325 MG TABS 1 four times a day as needed for pain HYDROCODONE-ACETAMINOPHEN 75634484945 No Longer Active Jacque Blas MD PhD Active ROBAXIN 500 MG TAB 1-2 pills up to four times daily if needed for muscle spasms METHOCARBAMOL 80965390656 No Longer Active Jacque Blas MD PhD Active CITALOPRAM HYDROBROMIDE 10 MG TABS 1 pill daily, for depression/anxiety 02/09 CITALOPRAM HYDROBROMIDE 45954587486 No Longer Active Jacque Blas MD PhD Active HYDROCODONE-ACETAMINOPHEN 5-325 MG TABS 1 pill three times daily as needed for pain HYDROCODONE-ACETAMINOPHEN 68907301344 No Longer Active Jacque Blas MD PhD Active IBUPROFEN 600 MG TAB 1 pill four times daily, with food IBUPROFEN 36108601489 Active Jacque Blas MD PhD Active TRAMADOL HCL 50 MG TABS 1-2 tablets every 6 hours as needed for pain TRAMADOL HCL 83391810124 No Longer Active Jacque Blas MD PhD Active TYLENOL EXTRA STRENGTH 500 MG TABS 2 @ HS ACETAMINOPHEN 31425174657 No Longer Active Jacque Blas MD PhD Active SERTRALINE HCL 50 MG TABS 1 daily for depression SERTRALINE HCL 61458081526 No Longer Active Jacque Blas MD PhD Active BACTRIM DS 800-160 MG TAB 1 tab by mouth twice daily TRIMETHOPRIM-SULFAMETHOXAZOLE 70808017629 No Longer Active Eva Alejo APRN Active FLINSJAMAR GUMMIELÍAS OMEGA-3 DHA CHEW Take one by mouth daily PEDIATRIC MULTIPLE VIT-C-FA 90470476132 No Longer Active Jacque Blas MD PhD Active RANITIDINE HCL 150 MG CAPS 1 twice a day RANITIDINE HCL 71948588267 No Longer Active Jacque Blas MD PhD Active PNV-OMEGA 28-0.6-0.4-340 MG CAPS 1 pill by mouth daily PRENAT W/O B-WP-QAFKK-FA-OMEGA 94489539563 No Longer Active Jacque Blas MD PhD Active BACTRIM DS 800-160 MG TAB 1 tab by mouth twice daily TRIMETHOPRIM-SULFAMETHOXAZOLE 62302118233 No Longer Active Jacque Blas MD PhD Active METRONIDAZOLE 250 MG TABS 1 TID METRONIDAZOLE 49828284603 No Longer Active Jacque Blas MD PhD Active TRI-SPRINTEC 0.18/0.215/0.25 MG-35 MCG TABS 1 PO q Day NORGESTIM-ETH ESTRAD TRIPHASIC 99894356149 No Longer Active Jacque Blas MD PhD Active ALPRAZOLAM 0.25 MG TABS 1/2 tab to 1 tab PO TID PRN ALPRAZOLAM 93830016790 No Longer Active Jacque Blas MD PhD Active FLUOXETINE HCL 10 MG CAPS 2 PO q AM FLUOXETINE HCL 59837121559 No Longer Active Jacque Blas MD PhD Active ALPRAZOLAM 0.25 MG TABS 1/2 tab to 1 tab PO TID PRN ALPRAZOLAM 0.25 MG TABS 696559 ALPRAZOLAM Inactive TRI-SPRINTEC 0.18/0.215/0.25 MG-35 MCG TABS 1 PO q Day TRI-SPRINTEC 0.18/0.215/0.25 MG-35 MCG TABS 854158 NORGESTIM-ETH ESTRAD TRIPHASIC Inactive PNV-OMEGA 28-0.6-0.4-340 MG CAPS 1 pill by mouth daily PNV-OMEGA 28-0.6-0.4-340 MG CAPS PRENAT W/O X-[id number]-FA-OMEGA Inactive RANITIDINE HCL 150 MG CAPS 1 twice a day RANITIDINE HCL 150 MG CAPS 680801 RANITIDINE HCL Inactive FLINSTONES GUMMIES OMEGA-3 DHA CHEW Take one by mouth daily FLINSTONES GUMMIES OMEGA-3 DHA CHEW PEDIATRIC MULTIPLE VIT-C-FA Inactive SERTRALINE HCL 50 MG TABS 1 daily for depression SERTRALINE HCL 50 MG TABS 375243 SERTRALINE HCL Inactive TYLENOL EXTRA STRENGTH 500 MG TABS 2 @ HS TYLENOL EXTRA STRENGTH 500 MG TABS 298451 ACETAMINOPHEN Inactive TRAMADOL HCL 50 MG TABS 1-2 tablets every 6 hours as needed for pain TRAMADOL HCL 50 MG TABS 730092 TRAMADOL HCL Inactive HYDROCODONE-ACETAMINOPHEN 5-325 MG TABS 1 pill three times daily as needed for pain HYDROCODONE-ACETAMINOPHEN 5-325 MG TABS 008280 HYDROCODONE-ACETAMINOPHEN Inactive CITALOPRAM HYDROBROMIDE 10 MG TABS 1 pill daily, for depression/anxiety 02/09 CITALOPRAM HYDROBROMIDE 10 MG TABS 641147 CITALOPRAM HYDROBROMIDE Inactive ROBAXIN 500 MG TAB 1-2 pills up to four times daily if needed for muscle spasms ROBAXIN 500 MG TAB 417953 METHOCARBAMOL Inactive HYDROCODONE-ACETAMINOPHEN 7.5-325 MG TABS 1 four times a day as needed for pain HYDROCODONE-ACETAMINOPHEN 7.5-325 MG TABS 054549 HYDROCODONE-ACETAMINOPHEN Inactive LAMICTAL 25 MG TABS 1 pill by mouth daily x 2 weeks, then 2 pills daily 07/26 LAMICTAL 25 MG TABS 251627 LAMOTRIGINE Inactive FLUOXETINE HCL 10 MG CAPS 2 PO q AM FLUOXETINE HCL 10 MG CAPS 721783 FLUOXETINE HCL Inactive METRONIDAZOLE 250 MG TABS 1 TID METRONIDAZOLE 250 MG TABS 715940 METRONIDAZOLE Inactive BACTRIM DS 800-160 MG TAB [...] reduced Diphtheria, and acellular Pertussis Immunization) Adacel [[id number]] tetanus toxoid, reduced diphtheria toxoid, and acellular [...] Value Unit Range Description Lab Report: Chlamydia/GC APTIMA/61834 - Lab chlamydia DNA probe NOT DETECTED NOT DETECTED chlamydia DNA probe NOT DETECTED NOT DETECTED Lab Report: Chlamydia/GC APTIMA/23801 - Microbiology Neisseria gonorrhoeae DNA probe NOT DETECTED NOT DETECTED Neisseria gonorrhoeae DNA probe NOT DETECTED NOT DETECTED Lab Report: Chlamydia/GC APTIMA/02954, Drug Abuse Pnl 10-50/47275 - Lab chlamydia DNA probe NOT DETECTED NOT DETECTED Lab Report: Chlamydia/GC APTIMA/42789, Drug Abuse Pnl 10-50/79228 - Microbiology Neisseria gonorrhoeae DNA probe NOT [...] Negative Encounters Code Encounter Date Provider Facility CPT-39988 Level 3 Est. 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 Patient 17:32:49 S[employer]IOR [employer] RES[employer] ENGINEER [facility] CPT-99575 Level 3 Est. Patient 14:38:20 CDT [facility] CPT-74976 Level 4 Est. Patient 20:19:14 CDT [facility] CPT-31194 Level 3 Est. Patient 15:41:32 CDT Jacque Blas MD [facility] CPT-56328 Level 3 Est. Patient 18:02:00 SENIOR W[employer] RESOURCES ENGINEER Jacque Blas MD [facility] CPT-12970 Level 3 Est. Patient 21:41:26 SENIOR W[employer] RESOURCES ENGINEER Jacque Blas MD [facility] CPT-06367 Level 4 Est. Patient 14:43:47 SENIOR WATER RESOURCES ENGINEER Jacque Blas MD [facility] CPT-06283 Level 3 Est. Patient 20:16:54 SENIOR [employer] RESOURCES ENGINEER Jacque Blas MD [facility] CPT-94678 Level 3 Est. Patient 13:31:37 CDT Jacque Blas MD [facility] CPT-25549 Level 3 New Patient 18:16:07 CDT Jacque Blas MD [facility] Procedures Code Procedure Name Date Entry Date Standard Description CPT-36516 Immunization Single Admin 13:26:18 SENIOR [employer] RES[employer] ENGINEER CPT-99697 Fluzone Intramuscular Injectable 13:26:18 SENIOR [employer] RESOURCES ENGINEER CPT-31991 Fluzone Thim Free 36mo and older 12:03:33 SENIOR W[employer] RESOURCES ENGINEER CPT-56701 UHCG (floor use only) 11:49:41 SENIOR WATER RESOURCES ENGINEER CPT-OV Office Visit 11:49:41 SENIOR [employer] RESOURCES ENGINEER CPT-93816 LS spine comp w obliq 15:53:02 SENIOR WATER RESOURCES ENGINEER CPT-32830 C-Spine Min 4V 15:53:02 SENIOR WATER RESOURCES ENGINEER CPT-00413 UHCG (floor use only) 14:15:45 CDT CPT-97760 UHCG (floor use only) 14:09:15 CDT CPT-J7302 Mirena IUD 13:30:58 CDT CPT-50187 Insertion of IUD 13:30:58 CDT CPT-OV Office Visit 13:30:58 CDT CPT-60816 Visit 10:48:09 CDT CPT-34061 Visit 15:34:57 CDT CPT-57498 Visit 15:25:55 CDT CPT-19789 Visit 13:58:45 CDT CPT-28879 Sono OB comp > 14 weeks 16:57:22 CDT CPT-LR Lesion Removal 09:33:27 CDT CPT-05777 Visit 12:50:42 CDT CPT-96305 Visit 18:34:25 CDT CPT-000 Give Appropriate Tetanus Booster 09:16:14 CDT CPT-04618 Administration single or combination vaccine inc oral 11 :36:32 CDT CPT-32828 Tdap 11:36:32 CDT CPT-11233 Visit 09:16:14 CDT CPT-19507 Visit 13:35:24 CDT CPT-68894 Sono OB comp > 14 weeks 11:46:07 CDT CPT-26187 Visit 17:08:15 CDT CPT-26071 Sono OB comp <14 weeks 15:47:19 SENIOR [employer] RESOURCES ENGINEER CPT-28248 Visit 13:28:37 CDT CPT-63878 Spec Collection and Handling Fee 12:41:37 CDT CPT-60098 Visit 12:41:07 CDT CPT-73515 Visit 18:48:53 CDT CPT-89303 Visit 16:25:17 CDT CPT-04377 Sono OB comp > 14 weeks 11:38:18 CDT CPT-04616 Visit 13:36:17 CDT CPT-35912 Visit 13:48:22 CDT
--- OUTSIDE RECORDS SUMMARY | 2019-01-13 21:00 | XMS REPORT | Continuity of Care Document ---
Demographics x Preferred Language Unknown Marital Status Unknown Alevism Affiliation Unknown Race Unknown Ethnic Group Unknown Author Author [facility] Organization [facility] Address Unknown Phone Unavailable Allergies Active Description Code Type Severity Reaction Onset Reported/Identified Relationship to Patient Clinical Status Yes No Known Drug Allergies [id number] ND N/A N/A Yes No Known Drug Allergies [id number] Drug Allergy Unknown N/A 11/06/2017 Medications There is no data. Problems Date Dx Coded Attending Type Code Diagnosis Diagnosed By 03/14/2014 MARY JOSEPH 569.3 RECTAL ANAL HEMORRHAGE 03/14/2014 MARY JOSEPH 863.45 RECTUM INJURY-CLOSED 03/14/2014 MARY JOSEPH E928.8 ACCIDENT NEC 09/14/2014 FCO ASENCIO 625.9 FEM GENITAL SYMPTOMS NOS 09/14/2014 FCO ASENCIO 724.5 BACKACHE NOS 09/14/2014 FCO ASENCIO 788.1 DYSURIA 09/18/2014 ABBEY JOY 959.4 HAND INJURY NOS 11/06/2017 NIA BROWNING MD Ot F17.200 NICOTINE DEPENDENCE, UNSPECIFIED, UNCOMP 11/06/2017 NIA BROWNING MD Ot F20.9 SCHIZOPHRENIA, UNSPECIFIED 11/06/2017 NIA BROWNING MD Ot F32.9 MAJOR DEPRESSIVE DISORDER, SINGLE EPISOD 11/06/2017 NIA BROWNING MD Ot F41.9 ANXIETY DISORDER, UNSPECIFIED 11/06/2017 NIA BROWNING MD Ot G43.909 MIGRAINE, UNSP, NOT INTRACTABLE, WITHOUT 11/06/2017 NIA BROWNING MD Ot G89.29 OTHER CHRONIC PAIN 11/06/2017 NIA BROWNING MD Ot M54.5 LOW BACK PAIN 11/06/2017 NIA BROWNING MD Ot Z90.89 ACQUIRED ABSENCE OF OTHER ORGANS 03/20/2018 MARTHA DOSHI MD Ot F12.90 CANNABIS USE, UNSPECIFIED, UNCOMPLICATED 03/20/2018 MARTHA DOSHI MD Ot F20.9 SCHIZOPHRENIA, UNSPECIFIED 03/20/2018 MARTHA DOSHI MD Ot F32.9 MAJOR DEPRESSIVE DISORDER, SINGLE EPISOD 03/20/2018 MARTHA DOSHI MD, Ot F41.9 ANXIETY DISORDER, UNSPECIFIED 03/20/2018 MARTHA DOSHI MD, Ot M54.5 LOW BACK PAIN 03/20/2018 MARTHA DOSHI MD, Ot N39.0 URINARY TRACT INFECTION, SITE NOT SPECIF 03/20/2018 MARTHA DOSHI MD, Ot Z87.828 PERSONAL HISTORY OF OTH (HEALED) PHYSICA 03/20/2018 MARTHA DOSHI MD, Ot Z90.89 ACQUIRED ABSENCE OF OTHER ORGANS Procedures Code Description [place] [address] EMERGENCY DEPT VISIT 03/14/2014 91788 EMERGENCY DEPT VISIT 03/14/2014 16171 URINALYSIS, AUTO W/SCOPE 09/14/2014 48668 URINE TEST 09/14/2014 73092 EMERGENCY DEPT VISIT 09/14/2014 81492 EMERGENCY DEPT VISIT 09/14/2014 84696 X-RAY EXAM OF NECK SPINE 03/15/2016 Results [...] ALP 55 IU/L 25-72 ALT 17 IU/L AST 19 IU/L 10-42 BCR 8.5 10-20 [...] ALB 4.3 G/DL 3.5-5 ALP 60 IU/L -72 ALT 17 IU/L AST 17 IU/L 10-42 BCR 9.7 10-20 [...] HCG QUAL - 09/21/14 00:00 HCG N HSV 1/2 IGG,TYPE SPECIFIC AB HERPESELECT - 09/23/17 10:49 HSV 1 IGG, TYPE SPECIFIC AB <0.90 index NRG HSV 2 IGG, TYPE SPECIFIC AB <0.90 index NRG CULTURE, GENITAL - 09/23/17 10:49 CULTURE, GENITAL SEE NOTE NRG HSV 1/2 ANTIBODY IgM - 09/23/17 10:49 HSV 1 IGM SCREEN NEGATIVE NRG HSV 2 IGM SCREEN NEGATIVE NRG Complete blood count (CBC) with automated white blood cell (WBC) differential - 03/20/18 07:36 Blood leukocytes automated count (number/volume) 10.2 10*3/uL 4.3-11.0 Blood erythrocytes automated count (number/volume) 4.04 10*6/uL 4.35-5.85 Venous blood hemoglobin measurement (mass/volume) 12.5 g/dL 11.5-16.0 Blood hematocrit (volume fraction) 36 % 35-52 Automated erythrocyte mean corpuscular volume 88 [foz_us] 80-99 Automated erythrocyte mean corpuscular hemoglobin (mass per erythrocyte) 31 pg 25-34 Automated erythrocyte mean corpuscular hemoglobin concentration measurement ( mass/volume) 35 g/dL 32-36 Automated erythrocyte distribution width ratio 12.4 % 10.0-14.5 Automated blood platelet count (count/volume) 232 10*3/uL 130-400 Automated blood platelet mean volume measurement 11.2 [foz_us] 7.4-10.4 Automated blood neutrophils/100 leukocytes 87 % 42-75 Automated blood lymphocytes/100 leukocytes 6 % 12-44 Blood monocytes/100 leukocytes 7 % 0-12 Automated blood eosinophils/100 leukocytes 0 % 0-10 Automated blood basophils/100 leukocytes 0 % 0-10 Blood neutrophils automated count (number/volume) 8.9 10*3 1.8-7.8 Blood lymphocytes automated count (number/volume) 0.6 10*3 1.0-4.0 Blood monocytes automated count (number/volume) 0.7 10*3 0.0-1.0 Automated eosinophil count 0.0 10*3/uL 0.0-0.3 Automated blood basophil count (count/volume) 0.0 10*3/uL 0.0-0.1 Comprehensive metabolic panel - 03/20/18 07:36 Serum or plasma sodium measurement (moles/volume) 139 mmol/L 135-145 Serum or plasma potassium measurement (moles/volume) 3.9 mmol/L 3.6-5.0 Serum or plasma chloride measurement (moles/volume) 109 mmol/L 98-107 Carbon dioxide 20 mmol/L 21-32 Serum or plasma anion gap determination (moles/volume) 10 mmol/L 5-14 Serum or plasma urea nitrogen measurement (mass/volume) 10 mg/dL 7-18 Serum or plasma creatinine measurement (mass/volume) 0.72 mg/dL 0.60-1.30 Serum or plasma urea nitrogen/creatinine mass ratio 14 NRG Serum or plasma creatinine measurement with calculation of estimated glomerular filtration rate > NRG Serum or plasma glucose measurement (mass/volume) 113 mg/dL 70-105 Serum or plasma calcium measurement (mass/volume) 9.1 mg/dL 8.5-10.1 Serum or plasma total bilirubin measurement (mass/volume) 0.9 mg/dL 0.1-1.0 Serum or plasma alkaline phosphatase measurement (enzymatic activity/volume) 45 U/L 40-136 Serum or plasma aspartate aminotransferase measurement (enzymatic activity/ volume) 14 U/L 5-34 Serum or plasma alanine aminotransferase measurement (enzymatic activity/volume ) 8 U/L 0-55 Serum or plasma protein measurement (mass/volume) 7.2 g/dL 6.4-8.2 Serum or plasma albumin measurement (mass/volume) 4.4 g/dL 3.2-4.5 Serum or plasma C reactive protein measurement (mass/volume) - 03/20/18 07:36 Serum or plasma C reactive protein measurement (mass/volume) 1.77 mg /dL 0.00-0.50 Serum or plasma choriogonadotropin ( test) detection - 03/20/18 07:36 Serum or plasma choriogonadotropin ( test) detection NEGATIVE NEGATIVE Blood manual differential performed detection - 03/20/18 07:36 Blood monocytes/100 leukocytes 3 % NRG Manual blood segmented neutrophils/100 leukocytes 92 % NRG Blood band neutrophils/100 leukocytes 0 % NRG Manual blood lymphocytes/100 leukocytes 5 % NRG Manual eosinophils/100 leukocytes in nose 0 % NRG Manual blood basophils/100 leukocytes 0 % NRG Blood erythrocyte morphology finding identification NORMAL NRG Erythrocyte sedimentation rate by westergren method - 03/20/18 07:36 Erythrocyte sedimentation rate by westergren method 14 mm 0-20 Complete urinalysis with reflex to culture - 03/20/18 08:28 Urine color determination YELLOW NRG Urine clarity determination VERY CLOUDY NRG Urine pH measurement by test strip 6.5 5-9 Specific gravity of urine by test strip 1.010 1.016- 1.022 Urine protein assay by test strip, semi-quantitative 2+ NEGATIVE Urine glucose detection by automated test strip NEGATIVE NEGATIVE Erythrocytes detection in urine sediment by light microscopy 2+ NEGATIVE Urine ketones detection by automated test strip 1+ NEGATIVE Urine nitrite detection by test strip POSITIVE NEGATIVE Urine total bilirubin detection by test strip NEGATIVE NEGATIVE Urine urobilinogen measurement by automated test strip (mass/volume) NORMAL NORMAL Urine leukocyte esterase detection by dipstick 3+ NEGATIVE Automated urine sediment erythrocyte count by microscopy (number/high power field) [HPF] NRG Automated urine sediment leukocyte count by microscopy (number/high power field ) TNTC NRG Bacteria detection in urine sediment by light microscopy LARGE NRG Squamous epithelial cells detection in urine sediment by light microscopy 2-5 NRG Crystals detection in urine sediment by light microscopy NONE NRG Casts detection in urine sediment by light microscopy NONE NRG Mucus detection in urine sediment by light microscopy NEGATIVE NRG Complete urinalysis with reflex to culture YES NRG Bacterial urine culture - 03/20/18 08:28 Bacterial urine culture [id number] NRG COLONY COUNT >100,000/ML NRG FTX;REPORTABLE SENT TO [facility] 03/20/18 11:30 NRG FREE TEXT ENTRY 2 SENSITIVITY REPORTED 03/22/18 9:05 NRG [facility] Sensitivity Panel - 03/20/18 08:28 Gentamicin susceptibility test by minimum inhibitory concentration < = NRG Trimethoprim/sulfamethoxazole susceptibility test by minimum inhibitoryconcentration = NRG Levofloxacin susceptibility test by minimum inhibitory concentration <= NRG Ampicillin susceptibility test by minimum inhibitory concentration < = NRG Cefazolin susceptibility test by minimum inhibitory concentration < = NRG Ceftriaxone susceptibility test by minimum inhibitory concentration <= NRG Ciprofloxacin susceptibility test by minimum inhibitory concentration <= NRG Meropenem susceptibility test by minimum inhibitory concentration < = NRG Nitrofurantoin susceptibility test by minimum inhibitory concentration <= NRG Amoxicillin and clavulanate potassium susc JARRELL <= NRG TSH - 06/30/18 11:26 TSH 1.03 mIU/L NRG CULTURE, GENITAL - 08/04/18 09:33 CULTURE, GENITAL SEE NOTE NRG ANI ANALYZER - 08/19/18 11:08 ANI SCREEN, IFA NEGATIVE NEGATIVE Encounters ACCT No. Visit Date/Time Discharge Status Pt. Type Provider Facility Loc./Unit Complaint [id number] 03/15/2016 10:01:00 03/15/2016 10:01:00 DIS Outpatient CARA ELISE [facility] RAD [id number] 09/21/2014 05:50:00 09/21/2014 09:26:00 DIS Emergency BERTO SOW [facility] EMR [id number] 09/18/2014 11:57:00 09/18/2014 12:10:00 DIS Emergency ABBEY JOY [facility] EMR [id number] 09/14/2014 17:36:00 09/14/2014 19:00:00 DIS Emergency FCO ASENCIO [facility] EMR [id number] 09/07/2014 02:07:00 09/07/2014 06:55:00 DIS Emergency EDDY PEARCE [facility] EMR [id number] 09/04/2014 08:15:00 09/05/2014 08:55:00 DIS Emergency EDDY PEARCE [facility] EMR [id number] 07/24/2014 10:48:00 07/24/2014 11:55:00 DIS Emergency BERTO SOW [facility] EMR [id number] 03/14/2014 13:10:00 03/14/2014 14:30:00 DIS Emergency MARY JOSEPH [facility] EMR [id number] 10/02/2013 00:00:00 Document Registration [id number] 10/02/2013 00:00:00 Document Registration [id number] 10/02/2013 00:00:00 Document Registration [id number] 09/21/2014 05:51:25 ACT Document Registration [id number] 01/13/2019 19:11:00 01/13/2019 19:31:00 DIS Emergency SANG MENDOZA, JUAN J Martinez [facility] ER SHOOTING L SIDE ABD/BACK PAIN [id number] 03/20/2018 07:19:00 03/20/2018 10:29:00 DIS Emergency MARTHA DOSHI MD [facility] ER BODY ACHES,VOMITING, FEVER,BACK ACHE [id number] 11/06/2017 08:37:00 11/06/2017 11:26:00 DIS Emergency NIA BROWNING MD [facility] ER CONGESTION,MIGRAINE,LOWER BACK PAIN [id number] 12/29/2018 16:30:00 12/29/2018 23:59:59 CLS Outpatient EVE CAME[facility] [place] [id number] 08/19/2018 10:00:00 Document Registration [id number] 08/04/2018 09:00:00 Document Registration [id number] 06/30/2018 10:40:00 Document Registration [id number] 09/23/2017 10:00:00 Document Registration [id number] 12/07/2017 10:07:28 ACT Unknown [id number] 10/11/2014 11:54:00 10/11/2014 23:59:59 CLS Outpatient ROCAEL CHU [facility]
== END 2019-01-13 19:31 | disposition left against medical advice (07) ==
LOC: EDUNIT# 19:10 → ER 19:11
DX: R10.9 Unspecified abdominal pain (principal); M54.9 Dorsalgia, unspecified

== ENCOUNTER 2021-06-07 16:36 | Emergency (ER) | payer MEDICAID ==
[~2021-06-07] VITALS: Ht 177.8 cm; Wt 92.7 kg
[~2021-06-07 16:36] MED LIST changes: -FLUO20CA25; +FLUO20CA46
--- NOTE | 2021-06-07 17:40 | ED General ---
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 She states that her pain is the worst on the medial side of her hands, but she also has symptoms on the lateral side. She describes it as a shooting pain that goes down her arm and into her fingers. She has had similar symptoms for years, but has gotten worse recently with her . , current at 18wks GA. She has also been experiencing joint pain in her shoulders, elbows, knees and ankles. She rates her pain 10/10 and has been experiencing associated numbness/tingling. She has brought up this issue with her primary care and states that her provider only ivett labs and told her she was fine, which she was unsatisfied with. 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 She is been having problems with dropping things and numbness and tingling associated with the ulnar side of bilateral upper extremities progressively worse. She is had similar symptoms for the past 3 years but it has decelerated with this and not either of her previous pregnancies. She is expecting a little girl. (JUAN J DOMÍNGUEZ) Allergies and Home Medications Allergies Coded Allergies: No Known Drug Allergies (Unverified , 11/06/17) Home Medications Cephalexin 500 Mg Tablet, 500 MG PO BID Prescribed by: MARTHA DOSHI on 03/20/18923 Hydrocodone Bit/Acetaminophen 1 Tab Tab, 1 EACH PO Q6H PRN for PAIN-MODERATE Prescribed by: MARTHA DOSHI on 03/20/18923 Patient Home Medication List Home Medication List Reviewed: Yes (BERNICE VITAL STUDENT) Review of Systems Review of Systems Constitutional: No chills, No fever; weakness (bilateral hands) EENTM: No hearing loss, No vision loss Respiratory: No cough, No dyspnea on exertion, No short of breath Cardiovascular: No chest pain, No edema Gastrointestinal: No abdominal pain, No constipation, No diarrhea, No nausea, No vomiting Genitourinary: No dysuria, No frequency, No hematuria : Yes (18wks GA) Musculoskeletal: back pain, joint pain, neck pain Skin: No change in color, No change in hair/nails Psychiatric/Neurological: Denies Headache; Numbness, Paresthesia, Tingling, Weakness (BERNICE VITAL [employer] STUDENT) All Other Systems Reviewed Negative Unless Noted: Yes (BERNICE VITAL [employer] SALVADOR) Past Jwbsnbp-Ygidex-Shdxdf Hx Patient Social History Tobacco Use?: No Substance use?: No Alcohol Use?: No (BERNICE VITAL [employer] SALVADOR) Past Medical History Surgeries: Yes Adenoidectomy, Tonsillectomy Respiratory: No Cardiac: No Neurological: Yes Concussion Genitourinary: No Gastrointestinal: No Musculoskeletal: No Endocrine: No HEENT: No Cancer: No Psychosocial: Yes Anxiety, Schizophrenia, Depression Integumentary: No (BERNICE VITAL [employer] STUDENT) Family Medical History No Pertinent Family Hx (BERNICE VITAL [employer] STUDENT) Physical Exam Vital Signs Capillary Refill : (BERNICE VITAL [employer] STUDENT) Height, Weight, BMI Height: 5'7.00" Weight: 189lbs. oz. 85.828293gj; BMI Method:Stated General Appearance: No Apparent Distress, WD/WN, Anxious Eyes: Bilateral Eye Normal Inspection, Bilateral Eye PERRL, Bilateral Eye EOMI HEENT: PERRL/EOMI, Normal ENT Inspection, Pharynx Normal Neck: Full Range of Motion, Normal Inspection, Supple, Other (mild tenderness to palpation along the paravertebral musculature) Respiratory: Chest Non Tender, Lungs Clear, Normal Breath Sounds, No Accessory Muscle Use, No Respiratory Distress Cardiovascular: Regular Rate, Rhythm, No Edema, Normal Peripheral Pulses Gastrointestinal: Normal Bowel Sounds, Non Tender, Soft Rectal: Deferred Back: Normal Inspection, No CVA Tenderness, Vertebral Tenderness (tenderness to palpation T6-T10) Extremity: Normal Capillary Refill, Normal Inspection, No Pedal Edema; No Swelling; Other (positive Tinels sign bilaterally at the wrist, mildy positive Tinels sign at the elbow, positive Phalens sign) Neurologic/Psychiatric: Alert, Oriented x3, Motor Weakness (hand rivet driver strength 3+/5 bilaterally) Skin: Normal Color, Warm/Dry Lymphatic: No Adenopathy (ZAHRAABERNICE MEJÍA STUDENT) Progress/Results/Core Measures Suspected Sepsis SIRS Temperature: Pulse: Respiratory Rate: Blood Pressure / Mean: (ZAHRAABERNICE STUDENT) Results/Orders Vital Signs/I&O Capillary Refill : (ZAHRAABERNICE STUDENT) Progress Note : Time: 18:04 Progress Note I attest that I saw this patient alongside the medical student and agree with his documented history, physical exam and review of systems except as otherwise noted. I agree with the assessment the patient has nerve impingement up and down her bilateral upper extremities probably made worse by the volume expansion of . We discussed this with her and gave her conservative counseling. T his alleviated a lot of the patient's fears. We will recommend she follow-up either with the orthopedic surgeon or primary care provider. We discussed that some cases can be dealt with in the clinic and some may need surgery. We told her that after her she can entertain the possibility of steroids and NSAIDs but until then Tylenol, ice, immobilization. We will give her some cock- up splints and a work note to not use her hands for the next 2 weeks. (JUAN J DOMÍNGUEZ) Departure Impression Primary Impression: Carpal tunnel syndrome during Additional Impression: Cubital tunnel syndrome, bilateral Disposition: 01 HOME, SELF-CARE Condition: Stable Departure-Patient Inst. Decision time for Depature: 18:07 (JUAN J DOMÍNGUEZ) Referrals: NO,LOCAL PHYSICIAN (PCP) Primary Care Physician GAVIN DUMAS MD Patient Instructions: Carpal Tunnel Exercises, Cubital Tunnel Syndrome (DC), Carpal Tunnel Release Add. Discharge Instructions: You have a nerve impingement syndrome which is probably been going on for some time but is definitely made worse by the swelling of . It probably starts at your neck and makes its way down. There are also impingement places in your ulnar tunnel at your elbow as well as in the carpal tunnel at your wrist. This is a very common thing to happen during and you can help relieve the swelling by keeping the splints on even when sleeping and reducing, to use your hands while at work for the next couple weeks. You can also use ice packs 20 minutes on every 2 hours while awake when the swelling in tenderness and tingling is bad. Elevating your hands above the level of your heart will a lso reduce some of the swelling in your wrists and elbows thereby reducing the impingement on the nerves. If it is real bad you can follow-up with Dr. Dumas, the orthopedic surgeon and he can talk to you about interventions such as surgical release, physical therapy and medications. You may use Tylenol 1000 mg every 8 hours as necessary for pain and this will not cause any harm to the baby. Topical creams such as icy hot, [place] balm, Blue emu etc. are all good choices to be applied directly to the elbow, wrist or neck and shoulder to reduce swelling and pain. Work/School Note: Work Release Form Date Seen in the Emergency Department: Jun 07, 2021 Return to Work: Jun 11, 2021 Restrictions: Need Release from Doctor Other Restrictions Listed Below: Wear the splints except to bathe for the next 2 to 4 weeks and as directed Restrictions: Minimize use of your hands and forearms until 06/25/2021. Copy Copies To 1: GAVIN DUMAS MD, JOHNNY MED STUDENT Jun 07, 2021 17:40 JUAN J DOMÍNGUEZ Jun 07, 2021 18:09
[2021-06-07 18:25] VITALS: BP 120/74
== END 2021-06-07 18:30 | disposition home or self-care (01) ==
LOC: ER 16:36
DX: O99.355 Diseases of the nervous system complicating the puerperium (principal); G56.03 Carpal tunnel syndrome, bilateral upper limbs; G56.23 Lesion of ulnar nerve, bilateral upper limbs; Z87.820 Personal history of traumatic brain injury; Z3A.18 18 weeks gestation of pregnancy
CPT/HCPCS: 99282

== ENCOUNTER 2021-10-13 18:38 | Outpatient (CLI) | payer MEDICAID ==
[~2021-10-13] VITALS: Ht 177.8 cm; Wt 130.9 kg
[~2021-10-13 18:38] MED LIST changes: -FLUO20CA46; +FLUO20CA48
[2021-10-13 19:01] LABS: BILIRUBIN,URINE NEGATIVE (NEGATIVE); CLARITY,URINE CLEAR; COLOR,URINE YELLOW; GLUCOSE, URINE (UA) NEGATIVE (NEGATIVE); KETONES,URINE NEGATIVE (NEGATIVE); LEUKOCYTE ESTERASE ,URINE NEGATIVE (NEGATIVE); NITRITE,URINE NEGATIVE (NEGATIVE); PH,URINE 7.5 (5-9); PROTEIN,URINE NEGATIVE (NEGATIVE)
[2021-10-13 19:06] VITALS: BP 141/70
[2021-10-13 19:20] VITALS: BP 141/70
[2021-10-13 19:21] LABS: BACTERIA,URINE NEGATIVE /HPF; SQUAMOUS EPITHELIAL CELL,UR 0-2 /HPF
[2021-10-13 19:31] VITALS: BP 141/70
--- NOTE | 2021-10-15 08:09 | Physician Query-Final Dx ---
Clinic Account Progress/Dx Physician Query: Please give diagnosis Please include # weeks gestation Date of Service Oct 13, 2021 at 18:38 LEATHA,NovOct 15, 2021 08:09
== END 2021-10-13 19:30 | disposition home or self-care (01) ==
LOC: WSo 18:38 → LDRP 18:39 → WSo 19:30
PROVIDERS: ATTEND Family Medicine
DX: O22.40 Hemorrhoids in pregnancy, unspecified trimester (principal); Z3A.00 Weeks of gestation of pregnancy not specified
CPT/HCPCS: 81000

== ENCOUNTER 2021-11-06 06:00 | Inpatient (IN) | payer MEDICAID ==
[2021-11-06] VITALS (63 sets, daily range): BP systolic 102–173; BP diastolic 53–95
[~2021-11-06] VITALS: Ht 177.8 cm; Wt 133.0 kg
[2021-11-06] MEDS ORDERED: MINERAL OIL CONCENTRATE 99.9% 15 ML UDC TOP PRN (06:30)
[2021-11-06 07:13] LABS: BASOPHILS % (AUTO) 0 % (0-10); EOSINOPHILS # (AUTO) 0.1 10^3/uL (0.0-0.3); EOSINOPHILS % (AUTO) 1 % (0-10); HEMATOCRIT 32 % (35-52); LYMPHOCYTES % (AUTO) 18 % (12-44); MEAN CORPUSCULAR HEMOGLOBIN 27 pg (25-34); MEAN CORPUSCULAR HGB CONC 31 g/dL (32-36); MEAN CORPUSCULAR VOLUME 87 fL (80-99); MEAN PLATELET VOLUME 9.9 fL (9.0-12.2); MONOCYTES # (AUTO) 0.5 10^3/uL (0.0-1.0); MONOCYTES % (AUTO) 5 % (0-12); NEUTROPHILS # (AUTO) 8.1 10^3/uL (1.8-7.8); NEUTROPHILS % (AUTO) 74 % (42-75); PLATELET COUNT 385 10^3/uL (130-400)
[2021-11-06] MEDS: D5 LR IV SOLUTION 1,000 ML IV SCH ×2 (07:20→15:19)
[2021-11-06] MEDS ORDERED: PREN-142 PO (07:47)
--- NOTE | 2021-11-06 07:49 | History & Physical-OB ---
OB - Chief Complaint & HPI Date/Time Date of Admission: Date of Admission: Nov 06, 2021 at 06:12 Date seen by a Provider: Nov 06, 2021 Time Seen by a Provider: 09:30 Chief Complaint/History OB-Reason for Admission/Chief: Induction of Labor Hx : 3 Hx Para: 2 Expected Date of Delivery: Nov 04, 2021 Gestational Age in Weeks: 40 Gestational Age in Days: 2 Indication for induction: post dates History of Labs O positive, antibody neg, RNI. HIV/HepB/RPR NR. GC/chlamydia neg. 1 hour glucola neg. GBS neg. Allergies and Home Medications Allergies Coded Allergies: No Known Drug Allergies (Unverified , 11/06/17) Patient Home Medication List Home Medication List Reviewed: Yes Vit No.124/Iron/FA ( Vitamin Tablet) 1 Each Tablet, 1 EACH PO DAILY, (Reported) Entered as Reported by: TED PORTER on 11/06/21 8472 Last Action: New Order OB - History Hx of Present Ultrasounds: Normal mid trimester US Medical Complications: Psychiatric (history of severe mood disorders), Musculoskeletal (carpal tunnel, chronic pain) Information Induced Hypertension: No Maternal Gestational Diabetes: No Hemorrhage: No Obstetrical History Hx : 3 Hx Para: 2 Hx # Term Pregnancies: 2 Hx # Pregnancies: 0 Number of Living Children: 2 Hx Termination: No Hx Multiple Gestation: No Hx Ectopic : No Hx Stillbirth: No Hx Complication: No Hx Induced Hypertens: No Hx Maternal Gestational Diabet: No Hx Hemorrhage: No Delivery History Hx Dystocia: Yes (uncertain severity, she recalls only that the baby got stuck briefly) Hx Forceps Assisted Delivery: No Hx Vacuum Extraction Assisted: No Hx Placenta Abnormality: No Hx Large For Gestational Age I: Yes (9lb4oz) Hx Small for Gestational Age I: No Hx Section: No Hx Vaginal Delivery Post C-Sec: No Hx Blood Disorders: No Adverse Rxn to Tranfusion: No Patient Past Medical History PMHx: Depression Chronic pain SurgHx: Denies Social History/Family History Alcohol Use: Denies Use Recreational Drug Use: Yes (THC prior to ) Smoking Cessation: Former smoker 2nd Hand Smoke Exposure: No Immunizations Tetanus Booster (TDap): Less than 5yrs (10/05/21) Rubella: not immune RPR/VDRL: Negative GBS Status: Negative HBsAG: Negative OB - Admission Exam Physical Exam Cervical Dilatation: 2cm Effacement: 0% Station: -3 Membranes: Intact Heart Rate: 140's Decelerations: No Decelerations Short Term Variability: Present Instructional Leader Variability: Average (6-25) Contractions on Admission: None Hernandez Scoring Tool (Modified) Dilation (cm): 1-2cm (1) Effacement (%): 0-30% (0) Descent/Station: -3 (0) Cervix Consistency: Soft (2) Cervix Position: Posterior (0) Add 1 point for: Each previous vaginal delivery (1) (2) Hernandez Score: 5 Labs Laboratory Tests Test 11/06/21 06:50 Range/Units White Blood Count 11.0 4.3-11.0 10^3/uL Red Blood Count 3.66 L 3.80-5.11 10^6/uL Hemoglobin 10.0 L 11.5-16.0 g/dL Hematocrit 32 L 35-52 % Mean Corpuscular Volume 87 80-99 fL Mean Corpuscular Hemoglobin 27 25-34 pg Mean Corpuscular Hemoglobin Concent 31 L 32-36 g/dL Red Cell Distribution Width 13.6 10.0-14.5 % Platelet Count 385 130-400 10^3/uL Mean Platelet Volume 9.9 9.0-12.2 fL Immature Granulocyte % (Auto) 2 % Neutrophils (%) (Auto) 74 42-75 % Lymphocytes (%) (Auto) 18 12-44 % Monocytes (%) (Auto) 5 0-12 % Eosinophils (%) (Auto) 1 0-10 % Basophils (%) (Auto) 0 0-10 % Neutrophils # (Auto) 8.1 H 1.8-7.8 10^3/uL Lymphocytes # (Auto) 2.0 1.0-4.0 10^3/uL Monocytes # (Auto) 0.5 0.0-1.0 10^3/uL Eosinophils # (Auto) 0.1 0.0-0.3 10^3/uL Basophils # (Auto) 0.0 0.0-0.1 10^3/uL Immature Granulocyte # (Auto) 0.2 H 0.0-0.1 10^3/uL OB - Assessment/Plan/Diagnosis Assessment Admission Dx Term intrauterine at 40w2d History of LGA infants and shoulder dystocia IOL GBS neg Depression Admission Status: Inpatient Order (span 2 midnights) Reason for Inpatient Admission: labor, delivery and course Plan Plan: Induction Induction Method: per Pitocin Protocol TED PORTER MD Nov 06, 2021 07:49
[2021-11-06] MEDS: OXYTOCIN PRE-MIX DRIP 500 ML IV SCH ×2 (08:36→21:37)
[2021-11-06] MEDS ORDERED: fentaNYL 2 mcg/ml BUPIVA 0.125 100 ML ONE (11:01)
[2021-11-06] MEDS ORDERED: BUPIVACAINE 0.25% 30 ML (SENSORCAINE) VIAL ONE (11:28)
[2021-11-06] MEDS ORDERED: fentaNYL INJ 100 MCG/2 ML AMP ONE (11:28)
[2021-11-06] MEDS ORDERED: LACTATED RINGERS 1,000 ML IV ONE ×2 (11:45)
[2021-11-06] MEDS ORDERED: EPIDURAL (fentaNYL 2 MCG/ML BUPIVA 0.125%)100 ML BAG EPI PRN (11:45)
[2021-11-06] MEDS ORDERED: ONDANSETRON 4 MG/2 ML (SDV) Z0FRAN IV PRN (11:45)
[2021-11-06] MEDS ORDERED: NALOXONE 0.4 MG/ML 1 ML (NARCAN) VIAL IV PRN (11:45)
[2021-11-06] MEDS ORDERED: fentaNYL INJ 100 MCG/2 ML AMP INJ ONE (11:45)
[2021-11-06] MEDS ORDERED: fentaNYL 2 mcg/ml BUPIVA 0.125 100 ML EPI PRN (12:00)
[2021-11-06] MEDS ORDERED: CATHETER FLUSH 10 ML SYR IV SCH (14:00)
--- NOTE | 2021-11-06 21:22 | OB Labor & Delivery Record ---
Vag Delivery Note Vag Delivery Note Date of Delivery: 11/06/21 Preoperative Diagnosis: Abeba Rivera is a (31 /Para 3 / 2,Gestational Age (wks)40with 2 days Postoperative Diagnosis: Same Surgeon: TED PORTER Anesthesia: Epidural Delivery Type: Spontaneous vaginal delivery Findings: Viable female infant, apgars 8/9, weight 4010 Lacerations: none Intact placenta with 3 vessel cord. No nuchal cord, body cord or shoulder dystocia Estimated Blood Loss: 250 ml Complications: None Condition: Stable Description of Procedure: The patient is a 31 year old female who presented for induction of labor due to post-dates. She was admitted and informed consent was obtained. Her labor course was remarkable for a brief period of minimal variability with late decelerations which resolved with holding pitocin. After a couple of hours without decelerations, pitocin was restarted and infant remained with reassuring heart tones and she progressed to complete dilatation and began to push. She was then set up for delivery. The infant's head was delivered atraumatically in the CHRISTIANO position. The shoulders and remainder of the infant's body were then delivered without difficulty. Upon delivery, the infant was placed on maternal abdomen. After a delay, the cord was doubly clamped and cut and the remained on maternal abdomen transitioning. An intact placenta with 3-vessel cord delivered via Oliver and there was found to be minimal bleeding.~ Vigorous fundal massage was performed and the fundus was found to be firm. IV oxytocin was given. Examination of the vagina and perineum revealed no laceration requiring repair, a periurethral abrasion was noted. Following the delivery, sponge, instrument and needle counts were correct. Mom and baby were both in stable condition in the labor suite. Vitals - Labs Vital Signs - I&O Vital Signs Date Time Temp Pulse Resp B/P (MAP) Pulse Ox O2 Delivery O2 Flow Rate FiO2 11/06/21 19:05 93 18 136/73 (94) 11/06/21 18:50 85 18 142/74 (96) 11/06/21 18:35 97 18 134/66 (88) 11/06/21 18:20 96 18 139/67 (91) 11/06/21 18:05 86 18 136/73 (94) 11/06/21 17:50 96 18 133/74 (93) 11/06/21 17:35 100 18 136/76 (96) 11/06/21 17:20 100 18 139/74 (95) 11/06/21 17:05 88 18 140/71 (94) 11/06/21 16:50 88 18 132/61 (84) 11/06/21 16:35 36.9 18 136/81 (99) 11/06/21 16:20 90 18 138/65 (89) 11/06/21 16:05 106 18 145/72 (96) 11/06/21 15:50 102 18 147/67 (93) 11/06/21 15:35 99 18 155/79 (104) 11/06/21 15:20 36.8 93 18 141/72 (95) 11/06/21 15:05 82 18 136/69 (91) 11/06/21 14:50 101 18 136/62 (86) 11/06/21 14:35 100 18 120/53 (75) 11/06/21 14:20 100 18 139/67 (91) 11/06/21 14:05 96 18 139/70 (93) 100 Non Rebreather 15.00 11/06/21 13:50 90 18 130/74 (92) 100 Non Rebreather 15.00 11/06/21 13:35 105 18 129/58 (81) 99 11/06/21 13:20 98 18 133/64 (87) 99 11/06/21 13:00 36.2 93 18 143/63 (89) 100 11/06/21 12:59 103 18 132/58 (82) 100 11/06/21 12:56 92 18 135/58 (83) 100 11/06/21 12:53 102 18 144/72 (96) 100 11/06/21 12:50 97 18 102/55 (71) 100 11/06/21 12:47 94 18 121/72 (88) 100 11/06/21 12:44 98 18 129/64 (85) 100 11/06/21 12:41 97 18 129/60 (83) 100 11/06/21 12:38 92 18 146/67 (93) 99 11/06/21 12:35 88 18 140/54 (82) 99 11/06/21 12:32 96 18 150/67 (94) 99 11/06/21 12:26 92 18 142/61 (88) 99 11/06/21 12:23 91 18 147/58 (87) 100 11/06/21 12:18 96 18 156/69 (98) 100 11/06/21 12:08 114 18 173/90 (117) 100 11/06/21 11:53 110 18 164/90 (114) 100 11/06/21 11:40 95 18 144/88 (106) 11/06/21 11:25 88 18 142/74 (96) 11/06/21 11:10 83 18 133/67 (89) 11/06/21 10:40 84 18 137/72 (93) 11/06/21 10:25 80 18 143/86 (105) 11/06/21 10:10 85 18 131/76 (94) 11/06/21 09:40 85 18 139/77 (97) 11/06/21 09:25 91 18 130/60 (83) 11/06/21 09:12 36.1 97 18 99 Room Air 11/06/21 08:55 94 18 140/71 (94) 11/06/21 08:40 36.5 96 18 134/70 (91) Labs Laboratory Tests 11/06/21 06:50: White Blood Count 11.0, Red Blood Count 3.66L, Hemoglobin 10.0L, Hematocrit 32L, Mean Corpuscular Volume 87, Mean Corpuscular Hemoglobin 27, Mean Corpuscular Hemoglobin Concent 31L, Red Cell Distribution Width 13.6, Platelet Count 385, Mean Platelet Volume 9.9, Immature Granulocyte % (Auto) 2, Neutrophils (%) (Auto) 74, Lymphocytes (%) (Auto) 18, Monocytes (%) (Auto) 5, Eosinophils (%) (Auto) 1, Basophils (%) (Auto) 0, Neutrophils # (Auto) 8.1H, Lymphocytes # (Auto) 2.0, Monocytes # (Auto) 0.5, Eosinophils # (Auto) 0.1, Basophils # (Auto) 0.0, Immature Granulocyte # (Auto) 0.2H TED PORTER MD Nov 06, 2021 21:22
[2021-11-06] MEDS ORDERED: BENZOCAINE/MENTHOL (DERMOPLAST) 56 ML CAN TP ONE (21:44)
[2021-11-06] MEDS ORDERED: OXYTOCIN PRE-MIX DRIP 500 ML IV SCH (22:00)
[2021-11-06] MEDS ORDERED: MEASLES,MUMPS,RUBELLA 1 EA INJ SQ ONE (22:00)
[2021-11-06] MEDS ORDERED: BENZOCAINE/MENTHOL (DERMOPLAST) 56 ML CAN TP PRN (22:00)
[2021-11-06] MEDS ORDERED: TETANUS,DIPTH,PERTUSS P/F (BOOSTRIX) 0.5 ML VIAL IM ONE (22:00)
[2021-11-06] MEDS ORDERED: DIBUCAINE 1% OINTMENT 30 GM TUBE TOP PRN (22:00)
[2021-11-06] MEDS: IBUPROFEN 600 MG (MOTRIN) TAB PO SCH (23:36)
[2021-11-07 04:00] VITALS: BP 126/74
[2021-11-07] MEDS: IBUPROFEN 600 MG (MOTRIN) TAB PO SCH ×3 (05:35→18:19)
[2021-11-07 06:00] LABS: BASOPHILS % (AUTO) 0 % (0-10); EOSINOPHILS # (AUTO) 0.1 10^3/uL (0.0-0.3); EOSINOPHILS % (AUTO) 0 % (0-10); HEMATOCRIT 28 % (35-52); HEMOGLOBIN 8.9 g/dL (11.5-16.0); LYMPHOCYTES # (AUTO) 2.5 10^3/uL (1.0-4.0); LYMPHOCYTES % (AUTO) 17 % (12-44); MEAN CORPUSCULAR HEMOGLOBIN 28 pg (25-34); MEAN CORPUSCULAR HGB CONC 32 g/dL (32-36); MEAN CORPUSCULAR VOLUME 87 fL (80-99); MEAN PLATELET VOLUME 9.6 fL (9.0-12.2); MONOCYTES # (AUTO) 0.8 10^3/uL (0.0-1.0); MONOCYTES % (AUTO) 5 % (0-12); NEUTROPHILS # (AUTO) 10.9 10^3/uL (1.8-7.8); NEUTROPHILS % (AUTO) 75 % (42-75); PLATELET COUNT 349 10^3/uL (130-400); WHITE BLOOD COUNT 14.5 10^3/uL (4.3-11.0)
--- NOTE | 2021-11-07 08:05 | Anesthesia-Regional Post-Op ---
Regional Patient Condition Mental Status: Alert, Oriented x3 Circulation: Same as Pre-Op Headache: Absent Sensation: Full Recovery Motor Block: Absent Post Op Complications Complications None Follow Up Care/Instructions Patient Instructions None needed. Anesthesia/Patient Condition Patient is doing well, no complaints, stable vital signs, no apparent adverse anesthesia problems. No complications reported per nursing. FREDA HOLDEN CRNA Nov 07, 2021 08:05
[2021-11-07 08:15] VITALS: BP 131/61
[2021-11-07] MEDS: PRENATAL VITAMIN 1 EA TAB PO SCH (08:28)
[2021-11-07] MEDS: FERROUS SULF 325 MG (IRON) TAB PO SCH (08:28)
[2021-11-07] MEDS: DOCUSATE SODIUM 100 MG (COLACE) CAP PO SCH ×2 (08:28→21:26)
[2021-11-07 11:50] VITALS: BP 121/69
--- NOTE | 2021-11-07 12:38 | Progress Note ---
Subjective Subjective/Events-last exam Had a Tmax of 38.2 just after delivery which resolved with no intervention. Denies chest pain, shortness of breath, dizziness, states bleeding is minimal. Objective Exam Last Set of Vital Signs Vital Signs Date Time Temp Pulse Resp B/P (MAP) Pulse Ox O2 Delivery O2 Flow Rate FiO2 11/07/21 11:50 36.3 97 18 121/69 (86) 97 Room Air 11/06/21 14:05 15.00 Capillary Refill : Less Than 3 Seconds I&O Intake and Output 11/07/21 00:00 Intake Total 2000 ml Output Total 600 ml Balance 1400 ml Intake IV Total 2000 ml Output Urine Total 600 ml Daily Weight Change No General: Alert, No Acute Distress Lungs: Clear to Auscultation, Normal Air Movement Heart: Regular Rate, No Murmurs Extremities: Other (trace non-pitting edema) Neuro: Normal Speech Psych/Mental Status: Mood NL Results/Procedures Lab Laboratory Tests 11/06/21 22:23: Glucometer 64L 11/07/21 05:41: White Blood Count 14.5H, Red Blood Count 3.22L, Hemoglobin 8.9L, Hematocrit 28L, Mean Corpuscular Volume 87, Mean Corpuscular Hemoglobin 28, Mean Corpuscular Hemoglobin Concent 32, Red Cell Distribution Width 13.8, Platelet Count 349, Mean Platelet Volume 9.6, Immature Granulocyte % (Auto) 1, Neutrophils (%) (Auto) 75, Lymphocytes (%) (Auto) 17, Monocytes (%) (Auto) 5, Eosinophils (%) (Auto) 0, Basophils (%) (Auto) 0, Neutrophils # (Auto) 10.9H, Lymphocytes # (Auto) 2.5, Monocytes # (Auto) 0.8, Eosinophils # (Auto) 0.1, Basophils # (Auto) 0.0, Immature Granulocyte # (Auto) 0.2H Assessment/Plan Assessment/Plan (1) Spontaneous vaginal delivery Status: Acute Assessment & Plan: Routine care (2) Acute blood loss anemia Status: Acute Assessment & Plan: Asymptomatic. Ferrous sulfate. TED PORTER MD Nov 07, 2021 12:38
[2021-11-07 16:00] VITALS: BP 125/75
[2021-11-07 21:26] VITALS: BP 129/78
[2021-11-07] MEDS ORDERED: FERR325T24 PO (21:29)
[2021-11-07] MEDS ORDERED: IBUP-844 PO (21:29)
[2021-11-08 01:04] VITALS: BP 105/62
[2021-11-08] MEDS: IBUPROFEN 600 MG (MOTRIN) TAB PO SCH ×2 (01:04→08:47)
--- NOTE | 2021-11-08 07:44 | Discharge Summary ---
Discharge Summary Hospital Course Problems/Diagnosis: (1) Spontaneous vaginal delivery Status: Acute Assessment & Plan: Routine care (2) Acute blood loss anemia Status: Acute Assessment & Plan: Asymptomatic. Ferrous sulfate. Hospital Course Date of Admission: Nov 06, 2021 at 06:12 Admission Diagnosis : Family Physician/Provider: No,Local Physician Date of Discharge: 11/08/21 Discharge Diagnosis: See problem list Hospital Course: 31 yo G3 now P3, admitted for IOL at 40w2d, delivered via an LGA infant, had unremarkable course, mild asymptomatic anemia. Labs and Pending Lab Test: Home Meds Active Ibu (Ibuprofen) 600 Mg Tablet 600 Mg PO Q6HR PRN Ferosul (Ferrous Sulfate) 325 Mg Tablet 325 Mg PO DAILY Reported Vitamin Tablet ( Vit No.124/Iron/FA) 1 Each Tablet 1 Each PO DAILY Assessment/Pt DC Instructions Follow up in 6 weeks for visit. Discharge Physical Examination Allergies: Coded Allergies: No Known Drug Allergies (Unverified , 11/06/17) General Appearance: No Apparent Distress, WD/WN Respiratory: Lungs Clear, Normal Breath Sounds Cardiovascular: Regular Rate, Rhythm, No Murmur Neurologic/Psychiatric: Alert, Normal Mood/Affect TED PORTER MD Nov 08, 2021 07:44
[2021-11-08] MEDS: PRENATAL VITAMIN 1 EA TAB PO SCH (08:46)
[2021-11-08] MEDS: FERROUS SULF 325 MG (IRON) TAB PO SCH (08:47)
[2021-11-08] MEDS: DOCUSATE SODIUM 100 MG (COLACE) CAP PO SCH (08:47)
[2021-11-08 08:48] VITALS: BP 141/73
== END 2021-11-08 11:05 | disposition home or self-care (01) | DRG 806 ==
LOC: LDRP 06:12
PROVIDERS: ADMIT Family Medicine; ATTEND Family Medicine
PROC: 10E0XZZ Delivery of Products of Conception, External Approach (ICD-10-PCS; principal; 2021-11-06)
DX: O48.0 Post-term pregnancy (principal); D62 Acute posthemorrhagic anemia; Z37.0 Single live birth; Z3A.40 40 weeks gestation of pregnancy; O99.344 Other mental disorders complicating childbirth; F32.A Depression, unspecified; G89.29 Other chronic pain; O90.81 Anemia of the puerperium
CPT/HCPCS: 36415; 82947; 85025; 86850; 86900; 86901

== ENCOUNTER 2022-03-02 16:22 | Emergency (ER) | payer MEDICAID ==
[~2022-03-02 16:22] MED LIST changes: +FERR325T24 PO; +IBUP-844 PO; +PREN-142 PO
--- NOTE | 2022-03-02 17:00 | ED Upper Extremity ---
General Chief Complaint: Upper Extremity Stated Complaint: R HAND/ARM PAIN Source: patient Exam Limitations: no limitations History of Present Illness Date Seen by Provider: Mar 02, 2022 Time Seen by Provider: 16:46 Initial Comments Patient is a 31-year-old female who is approximately 4 months normal delivery complaining of right forearm pain and weakness to her right hand and arm. Patient has multiple somatic complaints. She tells me she has had pain similar for at least the last 10 years. She takes ibuprofen arthritis 2 pills twice to 3 times daily. She complains of pain in her joints of her knees, feet, low back. Worsening pain over the last several days in her right shoulder and forearm and hand. She describes a "electric shock" type pain in the forearm. She tells me it comes on randomly. Today she states she was having trouble gripping to lift up a pen. She had pain with trying to do activities of daily living. She states the "pain is everywhere I bend". She tells me she has seen [facility] for this complaint and was diagnosed with "carpal tunnel syndrome". She was given braces and she wears them sporadically. Nothing makes the pains any better. She is afraid "I might ". No rashes, fevers, swelling. She takes no daily medications. She does have mental health services but is not on any mental health medications. She denies headache, vision changes. No speech difficulty. No problems with bowel or bladder although she does have periodic constipation. She would like "testing done" to figure out what she has. She mentions "osteoarthritis" and "sclerosis". I did have a long talk with her about the role of emergency medicine evaluation. I recommended that she have close follow-up with [facility]. I suggested that she write down a list of her aches and pains and complaints and take those with her to her appointment so that she is more focused when she tells her doctor what her problems are. She seems to understand this. I advised her that we would do some limited testing and then likely she would be discharged home All other review of systems reviewed and negative except as stated Onset: other (chronic, at least 10 years) Pain/Injury Location: right arm Allergies and Home Medications Allergies Coded Allergies: No Known Drug Allergies (Unverified , 11/06/17) Patient Home Medication List Home Medication List Reviewed: Yes Ferrous Sulfate (Ferosul) 325 Mg Tablet, 325 MG PO DAILY Prescribed by: TED PORTER on 11/07/212128 Ibuprofen (Ibu) 600 Mg Tablet, 600 MG PO Q6HR PRN for PAIN-MODERATE (5-7) Prescribed by: TED PORTER on 11/07/212128 Vit No.124/Iron/FA ( Vitamin Tablet) 1 Each Tablet, 1 EACH PO DAILY, (Reported) Entered as Reported by: TED PORTER on 11/06/21 0721 Review of Systems Constitutional: see HPI, other (tearful upset) EENTM: no symptoms reported Respiratory: no symptoms reported Cardiovascular: no symptoms reported Gastrointestinal: no symptoms reported Genitourinary: no symptoms reported Control/STD Prophylaxis: None (()) Musculoskeletal: joint pain, muscle pain (sharp "shocking" "electric" pains in right forearm), muscle cramps, neck pain, other (back pain) Skin: no symptoms reported Psychiatric/Neurological: Anxiety, Depressed, Emotional Problems All Other Systems Reviewed Negative Unless Noted: Yes Past Ppxzgqe-Pptswg-Hcocwo Hx Immunizations Up To Date Tetanus Booster (TDap): Less than 5yrs Past Medical History Surgeries: Yes Adenoidectomy, Tonsillectomy Respiratory: No Cardiac: No Neurological: Yes Concussion Genitourinary: No Gastrointestinal: No Musculoskeletal: No Endocrine: No HEENT: No Cancer: No Psychosocial: Yes Anxiety, Schizophrenia, Depression Integumentary: No Adverse Reaction/Blood Tranf: No Family Medical History No Pertinent Family Hx Physical Exam Vital Signs Capillary Refill : Height, Weight, BMI Height: 5'7.00" Weight: 189lbs. oz. 85.681405ko; 42.07 BMI Method:Stated General Appearance: WD/WN, mild distress (tearful) HEENT: PERRL/EOMI Neck: normal inspection Cardiovascular: regular rate, rhythm Respiratory: lungs clear, normal breath sounds, no respiratory distress, no accessory muscle use Gastrointestinal: non tender, soft Shoulder: normal inspection, normal ROM Elbow/Forearm: normal inspection, soft tissue tenderness (Tenderness to palpa tion over the soft tissues of the right forearm. No lesions, rashes, sores) Wrist: Yes normal inspection, Yes non-tender, Yes no evidence of injury, Yes normal ROM Hand: normal inspection, non-tender, no evidence of injury, normal ROM Reflexes: 2+ bicep (R) Neurologic/Tendon: normal sensation, normal motor functions, normal tendon functions Neurologic/Psychiatric: alert, normal mood/affect, oriented x 3, other (Patient does not have a Tinel's or Phalen's on the right wrist. When she wire dropper with her right hand which is 5/5 strength. As a try to pull on her fingers she experiences a sharp electric shock type pain to her forearm, this is repeatable. She is very tearful and upset) Skin: normal color, warm/dry Progress/Results/Core Measures Results/Orders Lab Results Laboratory Tests Test 03/02/22 17:14 03/02/22 17:20 Range/Units Urine Opiates Screen NEGATIVE NEGATIVE Urine Oxycodone Screen NEGATIVE NEGATIVE Urine Methadone Screen NEGATIVE NEGATIVE Urine Propoxyphene Screen NEGATIVE NEGATIVE Urine Barbiturates Screen NEGATIVE NEGATIVE Ur Tricyclic Antidepressants Screen NEGATIVE NEGATIVE Urine Phencyclidine Screen NEGATIVE NEGATIVE Urine Amphetamines Screen NEGATIVE NEGATIVE Urine Methamphetamines Screen NEGATIVE NEGATIVE Urine Benzodiazepines Screen NEGATIVE NEGATIVE Urine Cocaine Screen NEGATIVE NEGATIVE Urine Cannabinoids Screen POSITIVE H NEGATIVE Sodium Level 140 135-145 MMOL/L Potassium Level 3.8 3.6-5.0 MMOL/L Chloride Level 104 98-107 MMOL/L Carbon Dioxide Level 22 21-32 MMOL/L Anion Gap 14 5-14 MMOL/L Blood Urea Nitrogen 13 7-18 MG/DL Creatinine 0.79 0.60-1.30 MG/DL Estimat Glomerular Filtration Rate 102 BUN/Creatinine Ratio 16 Glucose Level 96 70-105 MG/DL Calcium Level 9.2 8.5-10.1 MG/DL My Orders Orders - REZA SANCHEZ MD Basic Metabolic Panel (03/02/22 16:55) Urine Bedside (03/02/22 16:55) Drug Screen Stat (Urine) (03/02/22 16:55) Departure Impression Primary Impression: Pain, neuropathic Disposition: 01 HOME, SELF-CARE Condition: Stable Departure-Patient Inst. Decision time for Depature: 17:51 Referrals: [facility] (PCP/Family) Primary Care Physician Patient Instructions: Neuropathic Pain Add. Discharge Instructions: Drink plenty fluids to stay well-hydrated. You can take vmod-huf-xgkjprd Alleve instead of ibuprofen for pain. Take 2 pills in the morning and 2 pills at night with food. This should help your bone pain. This is safe in breast-feeding. I have also written you a prescription for gabapentin, 300 mg tablets. This is safe in breast-feeding. Start with 300 mg on day 1, on day 2 - 300 mg twice a day and on day 3 - 300 mg 3 times a day. Take this medication until you follow- up with [facility]. Please call [facility] on Friday morning for a follow-up appointment. Return to the emergency department for any new, concerning or emergent complaints. Scripts Gabapentin (Gabapentin) 100 Mg Capsule 100 MG PO Q8H for Neuropathic pain, #90 CAP Start 300mg once on day 1; then 300mg BID on day 2; then 300mg 3x a day thereafter Prov: REZA SANCHEZ MD 03/02/22 Copy Copies To 1: SAUNDRA BUSH KATHRYN M MD Mar 02, 2022 17:00
[2022-03-02 17:37] LABS: AMPHETAMINE SCREEN, URINE NEGATIVE (NEGATIVE); BARBITURATE SCREEN URINE NEGATIVE (NEGATIVE); BENZODIAZEPINES SCREEN URINE NEGATIVE (NEGATIVE); CANNABINOID SCREEN, URINE POSITIVE (NEGATIVE); COCAINE SCREEN URINE NEGATIVE (NEGATIVE); METHADONE STAT NEGATIVE (NEGATIVE); OPIATE SCREEN URINE NEGATIVE (NEGATIVE); OXYCODONE STAT NEGATIVE (NEGATIVE); PROPOXYPHENE STAT NEGATIVE (NEGATIVE); TRICYCLIC ANTIDEPRESSANTS SCRE NEGATIVE (NEGATIVE)
[2022-03-02 17:42] LABS: CALCIUM 9.2 MG/DL (8.5-10.1); CREATININE SERUM 0.79 MG/DL (0.60-1.30); POTASSIUM 3.8 MMOL/L (3.6-5.0)
[2022-03-02] MEDS ORDERED: GABA-486 PO (17:55)
[2022-03-02 18:08] VITALS: BP 127/87
== END 2022-03-02 18:10 | disposition home or self-care (01) ==
LOC: EDUNIT# 16:22 → ER 16:24
DX: G62.9 Polyneuropathy, unspecified (principal)
CPT/HCPCS: 36415; 80048; 80306; 84703; 99282

== ENCOUNTER → 2022-03-15 | Outpatient (CLI) | payer MEDICAID ==
[~2022-03-15] MED LIST changes: +GABA-486 PO
--- NOTE | 2022-03-15 12:15 | Diagnostic Imaging Report ---
PROCEDURE: MRI lumbar spine. TECHNIQUE: Multiplanar, multisequence MRI of the lumbar spine was performed without contrast. INDICATION: Back pain. No relevant comparison available FINDINGS: There is a grade 1 anterolisthesis of L5 on S1. This appears to be secondary to bilateral L5 pars defects. Alignment is otherwise normal. The vertebral body heights are maintained. There are no marrow signal changes present to suggest an acute osseous injury or suspicious marrow replacing lesion. There are however findings of degenerative endplate edema on the left at L5-S1 compatible with Modic type I endplate changes. The distal thoracic cord is normal in caliber. The conus terminates at a normal level. There are no findings of an abnormal epidural process. There is no significant lower thoracic canal stenosis. L1-L2 and L2-L3 are unremarkable. At L3-L4 there is minimal facet hypertrophy. There is no significant stenosis. At L4-L5 there is mild facet hypertrophy and ligamentous thickening with minimal narrowing of the central canal. There is no significant lateral recess stenosis. There is mild narrowing of both neural foramen. At L5-S1 there is no significant canal or lateral recess stenosis. The anterolisthesis results in uncovering of the intervertebral disc. This results in mild to moderate right but moderate to severe left sided far lateral foraminal stenosis. Paraspinal soft tissues are unremarkable. Aorta is normal in caliber. The kidneys are nonobstructed. IMPRESSION: 1. Grade 1 anterolisthesis of L5 on S1 secondary to L5 pars defect. Alignment is otherwise normal. 2. Modic type I endplate edema at L5-S1 may be a source of central back pain. There are no findings of fracture or suspicious marrow replacing lesion 3. No high-grade canal or lateral recess stenosis evident. 4. Left greater than right foraminal stenosis at the L5-S1 level may result in L5 radiculopathy. Dictated by: Dictated on workstation # [id number]
== END ==
LOC: RAD 10:15
PROVIDERS: ATTEND Nurse Practitioner Family
DX: M43.17 Spondylolisthesis, lumbosacral region (principal); M48.07 Spinal stenosis, lumbosacral region
CPT/HCPCS: 72148

== ENCOUNTER 2022-09-08 09:07 | Emergency (ER) | payer MEDICAID ==
[~2022-09-08] VITALS: Ht 177 cm; Wt 100.0 kg
[2022-09-08 09:10] VITALS: BP 131/81
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
[2022-09-08] MEDS ORDERED: LIDOCAINE 4% (SALONPAS) PATCH ONE (10:13)
[2022-09-09] MEDS ORDERED: LIDOCAINE 4% (SALONPAS) PATCH TOP SCH (09:00)
== END 2022-09-08 10:16 | disposition left against medical advice (07) ==
LOC: EDUNIT# 09:07 → ER 09:12
DX: F45.9 Somatoform disorder, unspecified (principal); F41.0 Panic disorder [episodic paroxysmal anxiety]; Z28.310 Unvaccinated for COVID-19
CPT/HCPCS: 99281

== ENCOUNTER 2022-09-10 09:47 | Emergency (ER) | payer MEDICAID ==
[2022-09-10] MEDS ORDERED: ALPRAZolam 0.25 MG (XANAX) TAB PO ONE (10:15)
[2022-09-10] MEDS ORDERED: oxyCODONE/APAP 5/325MG (PERCOCET 5) TABLET PO ONE (10:15)
--- NOTE | 2022-09-10 10:36 | Diagnostic Imaging Report ---
EXAMINATION: Right hand 3 views HISTORY: Hip pain COMPARISON: None available. FINDINGS: Study quality is limited by abnormal positioning of the right hand, patient was unable to cooperate with repositioning. No fracture is seen. No dislocation. Joint spaces are normal. IMPRESSION: 1. No fracture in the right hand. Dictated by: Dictated on workstation # [id number]
--- NOTE | 2022-09-10 11:01 | ED Upper Extremity ---
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 Source: patient Exam Limitations: no limitations History of Present Illness Date Seen by Provider: Sep 10, 2022 Allergies and Home Medications Allergies Coded Allergies: No Known Drug Allergies (Unverified , 11/06/17) Patient Home Medication List Ferrous Sulfate (Ferosul) 325 Mg Tablet, 325 MG PO DAILY Prescribed by: TED PORTER on 11/07/212128 Gabapentin (Gabapentin) 100 Mg Capsule, 100 MG PO Q8H Prescribed by: REZA SANCHEZ on 03/02/22 175 Ibuprofen (Ibu) 600 Mg Tablet, 600 MG PO Q6HR PRN for PAIN-MODERATE (5-7) Prescribed by: TED PORTER on 11/07/212128 Vit No.124/Iron/FA ( Vitamin Tablet) 1 Each Tablet, 1 EACH PO DAILY, (Reported) Entered as Reported by: TED PORTER on 11/06/21 0747 Past Mwyadzf-Xzgrsi-Tmpfeq Hx Patient Social History Tobacco Use?: No Use of E-Cig and/or Vaping dev: No Substance use?: No Alcohol Use?: No Pt feels they are or have been: No Immunizations Up To Date Tetanus Booster (TDap): Less than 5yrs Past Medical History Surgery/Hospitalization HX: ANXIETY, DEPRESSION, poss seizures, carpel tunnel Surgeries: Yes Adenoidectomy, Tonsillectomy Respiratory: No Cardiac: No Neurological: Yes Concussion Genitourinary: No Gastrointestinal: No Musculoskeletal: No Endocrine: No HEENT: No Cancer: No Psychosocial: Yes Anxiety, Schizophrenia, Depression Integumentary: No Adverse Reaction/Blood Tranf: No Family Medical History No Pertinent Family Hx Physical Exam Vital Signs Vital Signs - First Documented 09/10/22 09:53 Pulse 108 Resp 26 B/P (MAP) 122/108 (113) Capillary Refill : Height, Weight, BMI Height: 5'7.00" Weight: 189lbs. oz. 85.876233dm; 31.00 BMI Method:Stated Progress/Results/Core Measures Results/Orders My Orders Orders - BETH BRYAN MD Oxycodone/Apap 5/325mg Tablet (Percocet (09/10/22 10:15) Alprazolam Tablet (Xanax Tablet) (09/10/22 10:15) Hand, Right, 3 Views (09/10/22 10:09) Dipht,Pertuss(Acell),Tet Adult (Boostrix (09/10/22 11:15) Medications Given in ED Current Medications Medications Dose Ordered Sig/Jen Route Start Time Stop Time Status Last Admin Dose Admin Alprazolam 0.25 mg ONCE ONCE PO 09/10/22 10:15 09/10/22 10:16 DC 09/10/22 10:16 0.25 MG Diphtheria/ Tetanus/Acell Pertussis 0.5 ml ONCE ONCE IM 09/10/22 11:15 09/10/22 11:16 DC 09/10/22 11:12 0.5 ML Oxycodone/ Acetaminophen 1 tab ONCE ONCE PO 09/10/22 10:15 09/10/22 10:16 DC 09/10/22 10:15 1 TAB Vital Signs/I&O 09/10/22 09:53 Pulse 108 Resp 26 B/P (MAP) 122/108 (113) Blood Pressure Mean: 113 Departure Impression Primary Impression: Finger contusion Qualified Codes: S60.131A - Contusion of right middle finger with damage to nail, initial encounter Additional Impressions: Finger laceration Qualified Codes: S61.312A - Laceration without foreign body of right middle finger with damage to nail, initial encounter Anxiety Disposition: 01 HOME, SELF-CARE Condition: Improved Departure-Patient Inst. Decision time for Depature: 11:01 Referrals: [facility] (PCP/Family) Primary Care Physician Patient Instructions: Contusion (DC) Add. Discharge Instructions: You may use the splint as needed for comfort and support. Cover your wound with a Band-Aid or other dressing when active or in dirty environments. Keep your wound clean and dry until it heals over. You may wash your hands and shower but do not submerge until the skin heals over. Monitor for signs of infection such as increasing redness, increased swelling, puslike drainage, or fever. Return to care if you notice the symptoms. You may use ibuprofen up to 600 mg every 6 hours and/or Tylenol (acetaminophen) up to 1000 mg every 6 hours as needed for pain. Icing in 20-minute intervals may also be helpful. All discharge instructions reviewed with patient and/or family. Voiced understanding. BETH BRYAN MD Sep 10, 2022 11:01
[2022-09-10] MEDS ORDERED: TETANUS,DIPTH,PERTUSS P/F (BOOSTRIX) 0.5 ML VIAL IM ONE (11:15)
[2022-09-10 11:30] VITALS: BP 134/100
== END 2022-09-10 11:32 | disposition home or self-care (01) ==
LOC: EDUNIT# 09:47 → ER 09:48
DX: S61.212A Laceration without foreign body of right middle finger without damage to nail, initial encounter (principal); F41.9 Anxiety disorder, unspecified; Z23 Encounter for immunization; W23.0XXA Caught, crushed, jammed, or pinched between moving objects, initial encounter
CPT/HCPCS: 73130; 90715

== ENCOUNTER → 2023-02-07 | Outpatient (CLI) | payer MEDICAID ==
--- NOTE | 2023-02-07 11:18 | Diagnostic Imaging Report ---
INDICATION: Chronic low back pain. EXAM: Lumbar spine. FINDINGS: AP and lateral views of the lumbar spine show a grade 1 spondylolisthesis at L5-S1. There are pars defects at L5. There is slight disc space narrowing at L5-S1. The other disc spaces are well-maintained. There are no compression fractures. IMPRESSION: Pars defects of L5 with grade 1 spondylolisthesis at L5-S1. This is not appreciably changed compared to MRI done on 03/15/2022. Dictated by: Dictated on workstation # [id number]
== END ==
LOC: RAD 08:33
PROVIDERS: ATTEND Specialist
DX: M43.17 Spondylolisthesis, lumbosacral region (principal)
CPT/HCPCS: 72100

== ENCOUNTER → 2023-07-02 | Outpatient (CLI) | payer MEDICAID ==
--- NOTE | 2023-07-02 17:47 | Diagnostic Imaging Report ---
SHOULDER, RIGHT, 2 VIEWS INDICATION: Right shoulder pain COMPARISON: None available. TECHNIQUE: 2 views right shoulder FINDINGS: The glenohumeral and acromioclavicular joints are normal in alignment. No acute fracture. Subacromial space is preserved. No abnormal soft tissue mineralizations. IMPRESSION: No osseous abnormality about the right shoulder. Dictated by: Dictated on workstation # [id number]
--- NOTE | 2023-07-02 17:47 | Diagnostic Imaging Report ---
SCAPULA, RT INDICATION: Right scapular pain COMPARISON: None available. TECHNIQUE: 2 views of right scapula FINDINGS: No fracture. Glenohumeral alignment is normal. AC joint alignment is also normal. Coracoid process and scapular spine are normal in appearance. IMPRESSION: Normal scapula radiographs. Dictated by: Dictated on workstation # [id number]
--- NOTE | 2023-07-02 17:49 | Diagnostic Imaging Report ---
HAND, RIGHT, 2 VIEWS INDICATION: Right hand pain COMPARISON: None available. TECHNIQUE: 2 views of right hand FINDINGS: Normal osseous mineralization. No fracture or erosion. Joint spaces are well-maintained. No cartilage calcifications. IMPRESSION: 1. No acute osseous abnormality. 2. No structural changes of inflammatory or crystalline arthropathy. Dictated by: Dictated on workstation # [id number]
== END ==
LOC: RAD 16:58
PROVIDERS: ATTEND Nurse Practitioner Family
DX: M25.511 Pain in right shoulder (principal); M54.9 Dorsalgia, unspecified; M79.641 Pain in right hand
CPT/HCPCS: 73010; 73030; 73120